=== PATIENT | female | born 1940 | race Caucasian/White ===

== ENCOUNTER 2019-07-30 18:31 | Inpatient (IN) | payer MEDICARE, MEDICAID, SELFPAY ==
[2019-07-30] VITALS (7 sets, daily range): BP systolic 82–102; BP diastolic 32–35; PULSE 35–55; RESP 14–21; TEMP 36.8; O2SAT 97–100
--- NOTE | 2019-07-30 18:30 | PC.NURSE ---
Direct admit from [facility] dori marroquin Talked to regarding pt's arrival and heart rate in 30s to 50s. Received orders for stat EKG, BMP, CBC and telemetry.
--- NOTE | 2019-07-30 18:38 | ECG_ITS ---
Measurements Intervals [place] Rate: 38 P: [place]: 0 QRS: 72 QRSD: 110 T: 57 QT: 453 QTc: 360 SUPRAVENTRICULAR BRADYCARDIA-possible extreme sinus bradycardia with junctional escape beats and supraventricular ectopics ABNORMAL RHYTHM ECG Compared to ECG 05/03/2019 07:20:30 Sinus rhythm no longer present Myocardial infarct finding no longer present Electronically Signed On 07-31-2019 21:58:18 AIX ADMINISTRATOR by Vanessa Gregorio M.D. [id number]
--- NOTE | 2019-07-30 19:00 | PC.NURSE ---
Report called to ICU-9 Received order for ICU-transfer. Called report to Joe.
[2019-07-30 19:28] LABS: Basophils % 0.2 %; Eosinophils % 0.4 %; Hematocrit 29.5 % (37.0-47.0); Lymphocytes # 1.4 10^3/uL (0.8-4.8); Lymphocytes % 12.3 %; Mean Corpuscular HGB Conc 30.5 g/dL (30.0-36.0); Mean Corpuscular Hemoglobin 31.5 pg (28.0-34.0); Mean Corpuscular Volume 103.1 fL (81-99); Mean Platelet Volume 11.6 fL (7.4-10.4); Monocytes # 1.2 10^3/uL (0.2-0.9); Monocytes % 10.9 %; Neutrophils # 8.4 10^3/uL (1.8-7.7); Neutrophils % 75.3 %; Nucleated Red Blood Cells % 0 %; Platelet Count 221 10^3/cmm (130-400); Red Blood Count 2.86 10^6/uL (4.1-5.3); Red Cell Distribution Width 13.6 % (12.1-15.1); White Blood Count 11.2 10^3/uL (4.0-10.0)
[2019-07-30 19:48] LABS: Anion Gap 16.7 (5-19); Calcium 9.7 mg/Dl (8.8-10.2); Carbon Dioxide 25 mmol/L (22-29); Chloride 92 mmol/L (98-107); Glucose 224 mg/dL (74-106); Potassium 5.7 mmol/L (3.5-5.1); Sodium 128 mmol/L (136-145)
[2019-07-30] MEDS: calcium gluconate 0.1 gm/mL 10% SDV 10mL 1 GM IVP (19:51)
--- NOTE | 2019-07-30 19:53 | PC.NURSE ---
Transferred patient to room ICU 9 via bed. Calcium Gluconate given as ordered over 10 minutes as ordered. Physician in room. Albuterol treatment given by RT as ordered. Patient lethargic;however, will awaken when spoken too. Family at bedside. Right IJ with triple lumen intact. Labs drawn from blue port without difficulty. Flushed after obtaining blood and giving Calcium Gluconate. Patient denies any pain at this time. Edema noted to BLE. Patient cold to touch. Lungs essentially CTAB upper lobes. Dimished bilateral lower lobes. Respirations even and unlabored with oxygen on at 3L/NC.
[2019-07-30 19:57] LABS: Blood Urea Nitrogen 107 mg/dL (8-23)
--- NOTE | 2019-07-30 20:00 | PM.CONSULT ---
Providers/Reason For Consult Consulting Physican/Specialty*: jong renee md telenephrology Reason for Consult*: kandy, hypserkalemia Requesting Physcian: DR. Caceres Attending Physician: Niko Caceres MD History of Present Illness History of Present Illness Vaibhav Ramsey is a 78 year old female parkinson's, GI issues, arthritis, PE- 5 years ago, IDDM for many years, CAD and CHF, insomnia/ psych disease, hypothyroidism, copd/ asthma, ming- home o2, htn, ex-tob. recently hospitalized in [place] 1 week ago. she was at PMD for routine visit and PMD called family to come to ER for hyperkalemia. Pt went to [facility] amd transferred to [facility] for junctional bradycardia- HR remains in 40's. she is lethargic and confused. symptoms have been worsening for last day. she has not been urinating much in last 24 hrs. she had normal renal fxn in Apr 2019. may 02, 2019- cr 0.9 may 03-cr 1.4 may 04, 2019- cr 2.2 currently cr is 5.1 home meds- carbidopa/levdopa pepcid oxycodone- percocet asa nsaid gel florastar eliquis 5 bid insulin lactulose prn kenalog magnesium hydroxide creams omega-3 fish oil senna vit b12 gabapentin nitro prn sl kdur bid bumex pravastatin xanaflex mirapex trazadone ditropan albuterol klonopin silvadene cream xyloprim allopurinol hydralazine metoprolol prilosec imdur levothyroxine magnesium zyrtec vit c lumigan solution losartan vit d Review of Systems Narrative: pt has become weaker over last week. chronically sob. she is confused and lethargic. no edema + ASHTON. no orthopnea Meds/Allergies Current Medications Current Medications Dextrose (D50w) 25 ml IVP ONCE PRN; Protocol PRN Reason: hypoglycemia protocol Dextrose (D50w) 50 ml IVP PRN PRN; Protocol PRN Reason: hypoglycemia protocol Glucagon (Glucagen) 1 mg IM ONCE PRN; Protocol PRN Reason: Adult Acute Hypoglycemia Prot. Dextrose (D5w) 500 mls @ 100 mls/hr IV ONCE PRN; Protocol PRN Reason: Adult Acute Hypoglycemia Prot Insulin Aspart (Novolog) 0 unit SUBCUT Q6H GONZALO; Protocol PFSH Acute PFSH: Statuses (acute, chronic, etc) shown below reflect problem list status as previously entered and may not be historically accurate Medical History (Updated 07/30/19 @ 20:11 by Niko Caceres MD) Chronic anticoagulation (Acute) Chronic back pain (Acute) Diastolic heart failure (Acute) Former smoker (Acute) Gout (Acute) History of pulmonary embolism (Acute) Hypertension (Acute) Hypothyroidism (Acute) Normal coronary angiogram (Acute) Cardiac angiogram done in September 2015 Paroxysmal A-fib (Acute) Type 2 diabetes mellitus (Acute) Surgical History (Updated 07/30/19 @ 20:09 by Niko Caceres MD) History of cholecystectomy (Acute) Tubal ligation status (Acute) Family History (Updated 07/30/19 @ 20:09 by Niko Caceres MD) Other Diabetes Social History Smoking and tobacco status: former smoker Alcohol intake: never Substance/Drug Use: never Household members: family Housing: House Vitals/I&O/Wt Last Vital Signs Pulse 47 L 07/30/19 19:41 Resp 14 07/30/19 19:41 Pulse Ox 100 07/30/19 19:41 Physical Exam Narrative: EXAM NARRATIVE: obese lady in bed bp stable, hr irreg- bradycardic rr 14 heent- nc/at, eomi, anicteric neck no jvp lung wheezes heart irreg, +KEATON abd soft, nt, nd ext min edema neuro- confused A&P Additional A&P Information 1. KANDY- likely from emds- bumex and arb. likely prerenal vs atn -check renal us check ua, urien lytes -monitor closely w/ ivf 2. confusion -hold meds -give ivf -check ammonia, abg, tsh 3. confusion and AMS- evaluate for infection- check ua check cxr 4. bradycardia- likely from cardiac disease and hyperkalemia- will rx hyperkalemia medically and monitor. if renal fxn does not improv soon, then may need dialysis -hold eliquis for now, as may need dialysis soon 5. hyperkalemia- rx medically and repeat labs in 2 hrs i discussed the case in detail w/ pts grandson who consents to dialysis if needed 6. dm care Consult Attestations Medical Necessity Statement: kandy, ams, hyperkalemia, AMS Time Spent in Patient Care: Greater than 35 minutes (>than 50% of time spent in counselling and/or direct pt care on unit). Critical Care Time: over 45 minutes of critical care- for kandy, AMS, irregular hr and bradycardia, with hyperkalemia Critical Care Time (min): 45 Coding Level of Care Code Acute Flight Engineer for Patrizia Corral
--- NOTE | 2019-07-30 20:01 | PM.HP ---
Providers/Chief Complaint Admitting Physician: Niko Caceres MD Chief Complaint: Bradycardia, hyperkalemia History of Present Illness Vaibhav Ramsey is a 78 year old female with past medical history of diastolic heart failure, CKD with baseline creatinine of 2-2.3, COPD on 3 L oxygen, paroxysmal A. fib, pulmonary embolism on chronic anticoagulation with Eliquis, type 2 diabetes mellitus, hypertension, hypothyroidism who was transferred to our hospital from [facility] where she had presented with complaint of being lethargic which has been progressively worsening for last 2 days. At the outside facility she was found to have a potassium of 6.4 with a heart rate of 35-42 and she was treated with cocktail of insulin 10 units with D50, albuterol nebulization, calcium gluconate on my request and her heart rate had improved to 70s. On arrival to [facility] her heart rate was again down and 35 to 44 bpm so was transferred to ICU. On evaluation family is bedside who states patient was recently discharged from [facility] in [place] on Tuesday where she was admitted for around a week for congestive heart failure and was been treated with IV diuresis. As per the family patient has been in 2 different hospitals over the last 14 to 20 days where she has been getting IV diuresis. At present patient complaint is lethargic complaining of mild dizziness but denies any nausea, vomiting, palpitations, headache, abdominal pain, dysuria, flulike symptoms, change in appetite, change in bowel movements, diarrhea. As per the family patient has been having decreased urine output than her usual for last 2 days. On reconciliation of medication patient is on Cozaar 100 mg, Bumex 1 mg twice daily, potassium supplementation 20 mg twice daily, metoprolol. Review of Systems Const: Reports: change in sleep pattern and daytime sleepiness; Denies: fever, chills, body aches, change in appetite, malaise, night sweats, diaphoresis or snoring Eyes: Denies: change in vision, blurry vision, photophobia, eye discomfort or eye discharge ENMT: Denies: throat pain, enlarged tonsils, hoarseness, mouth pain, oral sores/lesions, dry mouth, tinnitus, nasal congestion or post nasal drip Card: Reports: irregular heart rhythm, lightheadedness and pre-syncope; Denies: chest pain, palpitations, edema, swelling of feet/ankles, syncope, shortness of breath on exertion, shortness of breath when lying down, leg pain with exertion or bluish discoloration of hands/feet Resp: Denies: shortness of breath, productive cough, non-productive cough, wheezing, stridor, pain on inspiration, change in phlegm color, coughing up blood or chest congestion GI: Denies: abdominal pain, nausea, vomiting, vomiting blood, coffee grounds in vomit, difficulty swallowing, heartburn/indigestion, diarrhea, constipation, bloating, cramping, change in bowel habits, painful bowel movements, blood in stool or black tarry stool : Denies: flank pain, painful urination, urinary frequency, urinary urgency, urinary hesitancy, nighttime urination or blood in urine Musc: Denies: neck pain, back pain, extremity pain, joint pain, joint swelling, redness, joint stiffness or limited range of motion Neuro: Denies: headache, numbness in extremities, weakness in extremities, changes in sensation, lack of coordination, difficulty walking, frequent falls, dizziness, vertigo, confusion, slurred speech, difficulty communicating thoughts or seizure-like activity Psych: Denies: anxiety, depression, mood swings, panic attacks, hopelessness or irritability Endo: Denies: excessive urination, excessive thirst, tired all the time, cold intolerance, excessive sweating, flushing or heat intolerance Buzz/Lymph: Denies: easy bruising or easy bleeding All/Imm: Denies: tongue swelling, facial swelling or acute wheezing Medications/Allergies Home Medications Medication Instructions Recorded Confirmed Last Taken Type Calcium 500 + D 500 mg PO DAILY 07/31/19 07/31/19 Unknown History Proventil HFA 90 mcg INHALATION Q4H 07/31/19 07/31/19 Unknown History Saccharomyces boulardii [Florastor] 500 mg PO BID 07/31/19 07/31/19 Unknown History albuterol sulfate 2.5 mg CONTINUOUS NEBULIZATION Q4H 07/31/19 07/31/19 Unknown History PRN allopurinol 300 mg PO BID 07/31/19 07/31/19 Unknown History apixaban [Eliquis] 5 mg PO BID 07/31/19 07/31/19 Unknown History aspirin 81 mg PO DAILY 07/31/19 07/31/19 Unknown History bimatoprost [Lumigan] 1 drp OPHTHALMIC (EYE) BEDTIME 07/31/19 07/31/19 Unknown History bumetanide 1 mg PO BID 07/31/19 07/31/19 Unknown History carbidopa-levodopa 1 tab PO BID 07/31/19 07/31/19 Unknown History cetirizine [Zyrtec] 10 mg PO BEDTIME 07/31/19 07/31/19 Unknown History clonazepam 1 mg PO BEDTIME 07/31/19 07/31/19 Unknown History cyanocobalamin (vitamin B-12) 1,000 mcg IM DIRECTED 07/31/19 07/31/19 Unknown History famotidine 1 mg PO BID 07/31/19 07/31/19 Unknown History fluticasone propion-salmeterol 1 inh INHALATION BID 07/31/19 07/31/19 Unknown History [Advair Diskus] gabapentin 300 mg PO TID 07/31/19 07/31/19 Unknown History hydralazine 50 mg PO TID 07/31/19 07/31/19 Unknown History insulin aspart U-100 [Novolog See Rx Instructions .ROUTE .COMPLEX 07/31/19 07/31/19 Unknown History Flexpen U-100 Insulin] insulin glargine [Lantus Solostar 34 unit SUBCUT BEDTIME 07/31/19 07/31/19 Unknown History U-100 Insulin] isosorbide mononitrate 30 mg PO DAILY 07/31/19 07/31/19 Unknown History lactulose 15 ml PO BID PRN 07/31/19 07/31/19 Unknown History levothyroxine 100 mcg PO DAILY 07/31/19 07/31/19 Unknown History losartan 100 mg PO DAILY 07/31/19 07/31/19 Unknown History magnesium chloride [Mag 64] 64 mg PO DAILY 07/31/19 07/31/19 Unknown History magnesium hydroxide 0 ml PO DAILY PRN 07/31/19 07/31/19 Unknown History metoprolol tartrate 50 mg PRN 07/31/19 Unknown History nitroglycerin 0.4 mg SUBLINGUAL Q5MIN PRN 07/31/19 07/31/19 Unknown History omeprazole 40 mg PO DAILY 07/31/19 07/31/19 Unknown History oxybutynin chloride 5 mg PO TID 07/31/19 07/31/19 Unknown History oxycodone-acetaminophen 1 tab PO Q8H PRN 07/31/19 07/31/19 Unknown History potassium chloride 20 meq PO DAILY 07/31/19 07/31/19 Unknown History pramipexole 0.5 mg PO BID 07/31/19 07/31/19 Unknown History pravastatin 40 mg PO DAILY 07/31/19 07/31/19 Unknown History sennosides-docusate sodium 1 tab-cap PO BID 07/31/19 07/31/19 Unknown History silver sulfadiazine [SSD] 1 applic TOPICAL DAILY 07/31/19 07/31/19 Unknown History tizanidine 6 mg PO BEDTIME 07/31/19 07/31/19 Unknown History trazodone 100 mg PO DAILY 07/31/19 07/31/19 Unknown History Allergies Allergy/AdvReac Type Severity Reaction Status Date / Time codeine Allergy patient Verified 07/31/19 06:57 doesn't recall Iodinated Contrast Media Allergy renal Verified 07/31/19 06:57 disease naproxen Allergy renal Verified 07/31/19 06:57 disease Penicillins Allergy hives Verified 07/31/19 06:57 shellfish derived Allergy unknown Verified 07/31/19 06:57 Sulfa (Sulfonamide Allergy itching Verified 07/31/19 06:57 Antibiotics) tramadol Allergy makes me Verified 07/31/19 06:57 crazy garlic Allergy unknown Uncoded 07/31/19 06:57 PFSH Acute PFSH: Statuses (acute, chronic, etc) shown below reflect problem list status as previously entered and may not be historically accurate Medical History (Updated 07/31/19 @ 15:15 by Niko Caceres MD) Chronic anticoagulation (Acute) Chronic back pain (Acute) COPD (chronic obstructive pulmonary disease) (Acute) Diastolic heart failure (Acute) Former smoker (Acute) Gout (Acute) History of pulmonary embolism (Acute) Hypertension (Acute) Hypothyroidism (Acute) Normal coronary angiogram (Acute) Cardiac angiogram done in September 2015 Paroxysmal A-fib (Acute) Type 2 diabetes mellitus (Acute) Surgical History (Updated 07/31/19 @ 07:05 by Gucci Haddad MD) H/O left knee surgery (Acute) History of cholecystectomy (Acute) Tubal ligation status (Acute) Family History Other Diabetes Social History Smoking and tobacco status: former smoker Alcohol intake: never Substance/Drug Use: never Household members: family Housing: House Vitals/I&O/Wt Last Vital Signs Pulse 47 L 07/30/19 19:41 Resp 14 07/30/19 19:41 Pulse Ox 100 07/30/19 19:41 Physical Exam Narrative: EXAM NARRATIVE: General: No acute distress, lethargic, AO x3 HEENT: PERRLA, pupils bilaterally equal and reactive Chest: Normal vesicular breath sounds, no added sounds, equal good air entry bilaterally CVS: S1-S2 regular, bradycardia,, pansystolic murmur in mitral area 3/6, no gallops, no rubs Abdomen: Soft, nontender, no organomegaly, bowel sounds present Neuro: No focal deficits, no facial deformity, AO x3, power 3 /5 in all limbs Data : 07/31/19 03:56 07/31/19 12:40 A&P Assessment and plan (1) Hyperkalemia: Status: Acute Code(s): E87.5 - Hyperkalemia (2) Complete heart block: Status: Acute Code(s): I44.2 - Atrioventricular block, complete (3) Acute kidney injury superimposed on chronic kidney disease: Status: Acute Code(s): N17.9 - Acute kidney failure, unspecified; N18.9 - Chronic kidney disease, unspecified (4) Diastolic heart failure: Status: Acute Code(s): I50.30 - Unspecified diastolic (congestive) heart failure (5) Paroxysmal A-fib: Status: Acute Code(s): I48.0 - Paroxysmal atrial fibrillation (6) Chronic anticoagulation: Status: Acute Code(s): Z79.01 - [facility] (current) use of anticoagulants (7) Hypertension: Status: Acute Code(s): I10 - Essential (primary) hypertension (8) Type 2 diabetes mellitus: Status: Acute Code(s): E11.9 - Type 2 diabetes mellitus without complications Additional A&P Information Complete heart block: Secondary to hyperkalemia: Most likely due to acute on chronic kidney disease, home dose of Cozaar, Bumex, potassium supplementation. We will hold off on Cozaar, Bumex, potassium supplementation. Hold off on home dose of metoprolol. Calcium gluconate 1 g over 10 minutes, albuterol every 4 hourly as needed, D50 with 10 units insulin stat. Kexlate as per nephrology. Nephrology consultation for possible dialysis. Pacer pads connected to the patient. Check potassium every 6 hourly. N.p.o. Fall precautions Aspiration precautions Neurochecks every 1 hours for now. CHB most likely from hyperkalemia but will need to r/o ACS-- Check 5th Gen trop trends. Acute on chronic kidney disease.: Baseline creatinine of around 2.0-2.2. We will hold off nephrotoxic drugs. Medical reconciliation done. Continue to monitor BMP Q6h for now. Will catheterize patient to monitor for urine output. Hypertension: Blood pressure to be monitored for now. We will hold off on home dose of Cozaar and Lopressor given hyperkalemia and bradycardia. Given bradycardia patient would most likely need blood pressures over 150 systolic for proper cardiac output. Later if needed can add patient amlodipine but will hold off for now. Type 2 diabetes mellitus: We will check HbA1c tomorrow morning. Moderate insulin sliding scale every 6 hourly as patient is n.p.o. for now. History of paroxysmal A. fib/history of pulmonary embolism: For now patient is bradycardic and complete heart block. Will hold off on Lopressor as stated above. We will continue on Eliquis 2.5 mg twice daily at renal dose given renal dysfunction at right now. We will start after possible Shiley placement. H/o Diastolic HF: Last ECHO shows Diastolic HF. Will check repeat ECHO. Check ProBNP Pt euvoluemic at present. Depression: Lethargic right now. Will hold off on anti psych meds for now as CrCl worse right now and can accentuate the effect. Will plan to start once mentation improves. Get docs from OSH regarding result admission. Check lipid panel, TSH Eliquis for DVT ppx once confirm no dialysis overnight. FC as per roxy who is bedside. NPO for now. Attestations Medical Necessity Statement*: ICU admission for more than 2 MN for Hyperkalemia, Acute on CKD and CHB Critical Care Time: CHB, hyperkalemia, CKD Critical Care Time (min): 80 Coding Level of Care Code Acute Anesthesia Tech for Chg Fwd Diagnoses Hyperkalemia E87.5 Complete heart block I44.2 Acute kidney injury superimposed on chronic kidney disease N17.9; N18.9 Diastolic heart failure I50.30 Paroxysmal A-fib I48.0 Chronic anticoagulation Z79.01 Hypertension I10 Type 2 diabetes mellitus E11.9
--- NOTE | 2019-07-30 20:28 | XR_ITS ---
WS: [id number] CHEST XRAY TECHNIQUE: Portable chest. CLINICAL INFORMATION: chf COMPARISON: May 03, 2019 FINDINGS: Right IJ catheter with tip in the right atrium. Heart: Sternotomy. Aortic calcification. Lungs: Chronic emphysematous changes. No acute pulmonary infiltrates. Mild pulmonary vascular congest ion. Bones: Normal visualized bony structures. XR/XR chest 1V portable [id number] IMPRESSION: Cardiomegaly with mild pulmonary vascular congestion. No pleural fluid.
[2019-07-30] MEDS: insulin regular-human 10 UNIT in SYRINGE 1 EACH IVP (20:41)
[2019-07-30] MEDS: dextrose 50% syringe 50 mL IVP (20:43)
[2019-07-30] MEDS: sodium chloride 0.9% 1,000 ML 125 ML IV (20:51)
[2019-07-30] MEDS: sodium polystyrene sulfonate 15 gm/60 mL Btl 30 GM PO (20:51)
[2019-07-30 21:05] LABS: D Dimer 1.24 ug/mIFEU (0-0.59)
[2019-07-30] MEDS: sodium chloride 0.9% 500 ML IV (21:12)
[2019-07-30 21:18] LABS: Alanine Aminotransferase < 5 U/L (0-33); Alkaline Phosphatase 162 IU/L (35-105); Anion Gap 18.8 (5-19); Aspartate Amino Transferase 31 U/L (0-32); Calcium 10.3 mg/Dl (8.8-10.2); Carbon Dioxide 24 mmol/L (22-29); Chloride 93 mmol/L (98-107); Globulin 3.2 g/dL (1.3-4.6); Glucose 201 mg/dL (74-106); NT Pro B Type Natriuretic Pept 6163 pg/mL (0-450); Potassium 5.8 mmol/L (3.5-5.1); Sodium 130 mmol/L (136-145); Thyroid Stimulating Hormone 9.14 uIU/mL (0.27-4.20); Total Bilirubin 0.2 mg/dL (0.15-1.2); Total Protein 6.2 g/dL (6.6-8.7)
[2019-07-30 21:24] LABS: Blood Urea Nitrogen 96 mg/dL (8-23); Creatine Phosphokinase 900 U/L (26-192)
[2019-07-30 21:32] LABS: Ammonia 26 umol/L (11-51)
[2019-07-30 21:42] LABS: Potassium, Radom Urine 67 mmol/L; Urine Creatinine 150 mg/dL (28-217); Urine Random Chloride 23 mmol/L; Urine Random Sodium 22 mmol/L
[2019-07-30 21:48] LABS: Creatinine Urine, Random 146 mg/dL (28-217)
[2019-07-30] MEDS: ipratropium-albuterol 3 mL Neb INHALATION (21:48)
--- NOTE | 2019-07-30 21:59 | ECG_ITS ---
Measurements Intervals [place] Rate: 45 P: [place]: 0 QRS: 69 QRSD: 100 T: 36 QT: 448 QTc: 388 Junctional rhythm with a frequent prematures supraventricular ectopics ABNORMAL RHYTHM ECG Compared to ECG 05/03/2019 07:20:30 Sinus rhythm no longer present Myocardial infarct finding no longer present Electronically Signed On 07-31-2019 21:59:39 MORTAR MAN by Vanessa Gregorio M.D. [email or web address]
[2019-07-30 22:09] LABS: Microalbum Creatinine Ratio Ur 986 mg/dL (0-20); Microalbumin Random Urine 144 ug/dL (0-20)
[2019-07-30 22:32] LABS: Bilirubin Urine 1+ (NEGATIVE); Blood Urine Neg (Negative); Glucose Urine UA Norm (Normal); Ketones Urine Negative (Negative); Leukocyte Esterase Urine Negative (Negative); Nitrate Urine Negative (Negative); Protein Urine 3+ (Negative); Specific Gravity, Urine 1.015 (1.005-1.030); Urine Appearance SL Hazy (CLEAR); Urine Color Yellow (Yellow); Urobilinogen Urine Norm (Negative); pH Urine 5 (5-7)
[2019-07-30 22:33] LABS: Add Urine Culture? No; Amorphous Sediment Urine 2+; Bacteria Urine TRACE; Hyaline Casts Urine 0-4; Mucus Urine 1+
[2019-07-30 22:36] LABS: Basophils % 0.2 %; Eosinophils % 0.4 %; Hematocrit 27.4 % (37.0-47.0); Hemoglobin 8.2 g/dL (11.5-15.3); Lymphocytes # 1.9 10^3/uL (0.8-4.8); Lymphocytes % 19.9 %; Mean Corpuscular HGB Conc 29.9 g/dL (30.0-36.0); Mean Corpuscular Hemoglobin 30.3 pg (28.0-34.0); Mean Corpuscular Volume 101.1 fL (81-99); Mean Platelet Volume 11.5 fL (7.4-10.4); Monocytes % 10.3 %; Neutrophils # 6.7 10^3/uL (1.8-7.7); Neutrophils % 68.5 %; Nucleated Red Blood Cells % 0 %; Platelet Count 212 10^3/cmm (130-400); Red Blood Count 2.71 10^6/uL (4.1-5.3); Red Cell Distribution Width 13.6 % (12.1-15.1); White Blood Count 9.8 10^3/uL (4.0-10.0)
[2019-07-30 22:58] LABS: Anion Gap 18.5 (5-19); Carbon Dioxide 23 mmol/L (22-29); Chloride 95 mmol/L (98-107); Glucose 232 mg/dL (74-106); Potassium 5.5 mmol/L (3.5-5.1); Sodium 131 mmol/L (136-145)
[2019-07-30 22:59] LABS: Troponin(5th) Baseline 52 ng/mL (0-10)
[2019-07-30 23:09] LABS: Blood Urea Nitrogen 97 mg/dL (8-23)
--- NOTE | 2019-07-30 23:30 | PM.MISC ---
Miscellaneous Note Purpose of Documentation: renal follow up Note: pts potassium is 5.5. cr is stable, uop 100 ml. co2 of 23- pt remians bradycardic- i discussed w/ Dr. Gregorio of cardiology. he will consider Temporary pacemaker. if cardiology does not feel that will help, then can consider dialysis.
--- NOTE | 2019-07-30 23:47 | P.EN_ITS ---
Event Note Event Note: Patient was confused and lethargic, systolic blood pressure was in 80s and heart rate was fluctuating between 35-42 on telemetry it looked junctional rhythm as per my assessment After getting update from sales and service consultant I contacted Dr. Gregorio to convey my concerns, Dr. Gregorio agreed and decided to go ahead with pacemaker placement Telemetry sales and service consultant Dr. Cavazos has been updated (no acute indications for hemodialysis but if she remains anuric with persistent hyperkalemia after pacemaker placement he will be happy to assist in hemodialysis) Meanwhile I will start patient on dopamine drip at 10 mcg per KG per minute
--- NOTE | 2019-07-30 23:53 | PC.NURSE ---
patient heart rate remains in the low 40's to upper 30's. appears to be junctional rhythm. patients blood pressure started trending down and patient became more lethargic and hard to arise called hospitalist Dr. Matthew and he contacted Dr. Gregorio for cardiology as a consult. Dr. Gregorio requested we call in distillery laborer team and he is going to come and place a temporary pacemaker.
[2019-07-31] VITALS (33 sets, daily range): BP systolic 81–168; BP diastolic 27–70; PULSE 46–86; RESP 10–29; TEMP 36.6–37; O2SAT 88–100; BMI 36.3
[2019-07-31] MEDS: DOPamine drip 400 MG/250 ML PREMIX 19.2 MG IV (00:14)
[2019-07-31 00:33] LABS: Free T4 Free Thyroxine 1.34 ng/dL (0.82-1.77); T3 Free 2.1 PG/ML (2.0-4.4)
--- NOTE | 2019-07-31 01:15 | PM.CONSULT ---
Providers/Reason For Consult Consulting Physican/Specialty*: Dago Gregorio MD/cardiology Reason for Consult*: Patient with bradycardia/hypotension Attending Physician: Niko Caceres MD History of Present Illness History of Present Illness Vaibhav Ramsey is a 78 year old female with a history of chronic intermittent atrial fibrillation, on long-term oral anticoagulation, recurrent episodes of diastolic heart failure, mitral valve regurgitation, essential benign hypertension, dyslipidemia, acute on chronic kidney disease, COPD and multiple other medical problems, was initially seen at the emergency room of the [facility] in [facility]. She has mainly complaining of lethargy/sleepiness/weakness. She was found to be hyperkalemic and bradycardic. She is transferred to [facility] for further evaluation management. Patient apparently was discharged from the [facility] recently where she was admitted with? Progressive shortness of breath. Details of that hospital admission is not known. In June of last year, she was admitted to this hospital with atypical chest pain and shortness of breath. She had a features of acute diastolic heart failure and acute on chronic kidney disease. She had a myocardial perfusion imaging at that time which revealed no evidence of ischemia. She had a cardiac authorization 2016 which also did not reveal any significant obstructive coronary artery disease. She is known to have moderately severe mitral regurgitation. She is on long-term oral anticoagulation for chronic intermittent atrial fibrillation. Patient extremely poor historian. Review of Systems Const: Reports: other (Anorexia. She was found to be increasingly lethargic and fatigued by the family members, since the hospital discharge from [facility] Denies: fever, chills, change in appetite, fatigue or night sweats Eyes: Denies: change in vision, blurry vision or eye discomfort ENMT: Denies: bleeding gums, nose bleeds or other (Spinning Sensation, Trouble Swallowing) Card: Denies: syncope, pre-syncope, shortness of breath when lying down or leg pain with exertion Resp: Reports: shortness of breath; Denies: productive cough, change in phlegm color or coughing up blood GI: Denies: vomiting, vomiting blood, bloating, blood in stool or black tarry stool : Denies: blood in urine or vaginal bleeding Musc: Denies: neck pain, extremity pain, extremity swelling, redness, muscle cramps, muscle weakness or other (Neck Pain or Swollen Glands) Skin/Breast: Denies: rash, itching, redness, new lesion, changes in skin color or breast mass/lump Neuro: Denies: headache, changes in sensation, lack of coordination, frequent falls, dizziness, vertigo, seizure-like activity or other (TIA, Numbness) Psych: Reports: sleeping more and loss of interest Endo: Denies: excessive urination, excessive thirst or other (Abnormal Hair Loss) Buzz/Lymph: Denies: easy bruising All/Imm: Denies: hives Meds/Allergies Current Medications Current Medications Generic Name Dose Route Start Last Admin Trade Name Freq PRN Reason Stop Dose Admin Albuterol/Ipratropium 3 ml 07/30/19 21:00 07/30/19 21:48 Duoneb INHALATION 3 ml Q6H.RESPIRATORY GONZALO Administration Sodium Chloride 1,000 mls @ 125 mls/hr 07/30/19 20:30 07/30/19 20:51 Sodium Chloride 0.9% IV 125 mls/hr .Q8H GONZALO Administration Dopamine HCl/Dextrose 400 mg in 250 mls @ 19.163 mls/hr 07/30/19 23:45 07/31/19 00:14 Intropin Drip IV 5 mcg/kg/min CONT GONZALO 19.2 mls/hr Administration Protocol 5 MCG/KG/MIN Insulin Aspart 0 unit 07/30/19 20:00 07/30/19 21:14 Novolog SUBCUT Not Given Q6H GONZALO Protocol PFSH Acute PFSH: Statuses (acute, chronic, etc) shown below reflect problem list status as previously entered and may not be historically accurate Medical History Chronic anticoagulation (Acute) Chronic back pain (Acute) Diastolic heart failure (Acute) Former smoker (Acute) Gout (Acute) History of pulmonary embolism (Acute) Hypertension (Acute) Hypothyroidism (Acute) Normal coronary angiogram (Acute) Cardiac angiogram done in September 2015 Paroxysmal A-fib (Acute) Type 2 diabetes mellitus (Acute) Surgical History History of cholecystectomy (Acute) Tubal ligation status (Acute) Family History Other Diabetes Social History Smoking and tobacco status: former smoker Alcohol intake: never Substance/Drug Use: never Household members: family Housing: House Vitals/I&O/Wt Last Vital Signs Temp 98.2 F 07/30/19 20:28 Pulse 47 L 07/31/19 00:00 Resp 12 07/31/19 00:00 BP 93/43 07/31/19 00:00 Pulse Ox 98 07/31/19 00:00 07/30/19 07/30/19 07/31/19 14:59 22:59 06:59 Intake Total 120 / 120 Balance 120 / 120 Weight last 48 hrs Weight 225 lb 5 oz Physical Exam Narrative: EXAM NARRATIVE: GENERAL: The patient is drowsy and sleepy. Not in any acute distress. HEENT: Heart rate pallor, no icterus or lymphadenopathy. The pupils are reactant to light. Oral cavity: There are no mucous membrane lesions. Funduscopic fundus is not visualized NECK: Trachea appears to be central. No masses noted. No JVD or thyromegaly appreciated. No carotid bruit. RESPIRATORY: Chest is symmetrical. No intercostals muscle retraction or any accessory muscle activation. There is no chest wall tenderness. Breath sounds are heard bilaterally. No rales or rhonchi heard. No evidence of any consolidation. BREASTS: Deferred. HEART: The PMI could not be palpated no palpable precordial events. S1 and S2 are normal. No S3 or S4 heard. No pericardial rub or any click heard. ABDOMEN: No vessel pulsations or distention. No tenderness. No organomegaly appreciated. No abdominal bruit. Bowel sounds are normally heard. : Deferred. RECTAL: Deferred. LYMPHATIC: No lymphadenopathy noted in the neck or groin. EXTREMITIES: No edema or cyanosis. No clubbing. The pulses are symmetrical bilaterally. The radial, femoral, dorsalis pedis and the posterior tibial pulses are palpated and found to be in good volume and amplitude. MUSCULOSKELETAL: Gait is normal. There is no joint deformity or swelling noted. No joint tenderness or any effusion. The shoulder and hip joints appear to have normal range of motion. SKIN: There are no significant scars or skin rash noted. NEUROPSYCHIATRIC: Drowsy and sleepy. Moves all the extremities. No tremors or rigidity noted. Urinary Catheter Management^: Ferrari: Cath Placed During This Visit: no Data Imaging^: CXR: My impression: Chest x-ray shows cardiomegaly with increased pulmonary venous markings. A&P Assessment and plan (1) Paroxysmal A-fib: Patient has intermittent chronic atrial fibrillation. Currently she seems to be in a junctional rhythm. She has been on a low-dose of Eliquis because of the kidney injury. Status: Acute Code(s): I48.0 - Paroxysmal atrial fibrillation (2) Chronic anticoagulation: Because acute on chronic kidney injury and the anemia, the oral anticoagulation is on hold at this time. Status: Acute Code(s): Z79.01 - [facility] (current) use of anticoagulants (3) Diastolic heart failure: Acute on chronic renal failure, could be the etiology for the heart failure. Appreciate the nephrology consult Status: Acute Qualifiers: Heart failure chronicity: chronic Qualified Code(s): I50.32 - Chronic diastolic (congestive) heart failure Code(s): I50.30 - Unspecified diastolic (congestive) heart failure (4) Hyperkalemia: Potassium level is coming down. Dialysis is on hold at this time. Further recommendations as per the nephrology Status: Acute Code(s): E87.5 - Hyperkalemia (5) Symptomatic bradycardia: Agree with a transvenous temporary pacemaker insertion. Based on the clinical progress, the need for a permanent pacemaker will be reassessed. Status: Acute Code(s): R00.1 - Bradycardia, unspecified (6) Acute kidney injury superimposed on chronic kidney disease: Management as per the nephrology Status: Acute Code(s): N17.9 - Acute kidney failure, unspecified; N18.9 - Chronic kidney disease, unspecified Coding Level of Care Code Acute [facility]al Operator for [facility] Diagnoses Paroxysmal A-fib I48.0 Chronic anticoagulation Z79.01 Diastolic heart failure I50.32 Heart failure chronicity: chronic Hyperkalemia E87.5 Symptomatic bradycardia R00.1 Acute kidney injury superimposed on chronic kidney disease N17.9; N18.9
--- NOTE | 2019-07-31 01:17 | PM.MISC ---
Miscellaneous Note Purpose of Documentation: Temporary pacemaker insertion report PROCEDURE: Transvenous temporary pacemaker insertion LOCATION: Cardiac catheterization lab PRE-OP DIAGNOSIS: Symptomatic bradycardia POSTOPERATIVE DIAGNOSES: Same. COMPLICATIONS: None. ESTIMATED BLOOD LOSS: None BRIEF HISTORY: 78 year old female is admitted to the hospital with features of acute renal failure and bradycardia with a heart rate in the 30s and low 40s. She was found to be hypotensive. Initially she was hyperkalemic with a potassium around 6.4. The repeat potassium level is 5.5. Patient continued to be bradycardic with a heart rate in the 30s and 40s. For this reason, a transvenous temporary pacemaker insertion was requested by the nephrology and the primary attending. The procedure was discussed with the patient's family and the possible complications including hematoma, vascular injury, infection, myocardial perforation and other concomitant complications. This was understood well by the family who consented to proceed. PROCEDURE DESCRIPTION: Patient was brought to the [facility] [employer] [facility]. The right and the left side of the groin were prepped and draped in a sterile fashion. 1% Xylocaine was used as a local anesthetic agent. The right femoral venous access was obtained using a micropuncture needle system. A 6-Cypriot venous sheath was introduced into the femoral vein over a guidewire. A 5-Cypriot temporary balloon-tipped pacing wire over a sleeve was advanced through the venous sheath, under fluoroscopic guidance. The temporary pacing wire was placed near to the right ventricular apex. Good pacing threshold was obtained. The venous sheath was secured in place by suturing to the skin with 0 Surgilon. The pacemaker wire also was secured to the skin by suturing with 0 Surgilon, over the sleeve. A sterile dressing was applied at the access site. Patient tolerated the procedure very well and there were no complications. The pacing threshold was found to be less than 0.2 V PACEMAKER SETTINGS: The pacemaker was set for a backup rate of 50/ min with an output of 2 Amp and on a demand mode. DISPOSITION: Patient was transferred to the Intensive Care Unit in stable condition.
[2019-07-31 01:33] LABS: Basophils % 0.3 %; Eosinophils # 0.1 10^3/uL (0.0-0.8); Eosinophils % 0.9 %; Hematocrit 30.8 % (37.0-47.0); Hemoglobin 9.5 g/dL (11.5-15.3); Lymphocytes # 2.1 10^3/uL (0.8-4.8); Lymphocytes % 17.5 %; Mean Corpuscular HGB Conc 30.8 g/dL (30.0-36.0); Mean Corpuscular Hemoglobin 30.5 pg (28.0-34.0); Mean Platelet Volume 11.3 fL (7.4-10.4); Monocytes # 1.4 10^3/uL (0.2-0.9); Monocytes % 11.7 %; Neutrophils % 68.5 %; Nucleated Red Blood Cells % 0 %; Platelet Count 278 10^3/cmm (130-400); Red Blood Count 3.11 10^6/uL (4.1-5.3); Red Cell Distribution Width 13.6 % (12.1-15.1); White Blood Count 11.8 10^3/uL (4.0-10.0)
[2019-07-31 01:44] LABS: Alanine Aminotransferase < 5 U/L (0-33); Albumin Level 3.4 g/dL (3.5-5.2); Alkaline Phosphatase 170 IU/L (35-105); Anion Gap 17.3 (5-19); Aspartate Amino Transferase 29 U/L (0-32); Calcium 10.2 mg/Dl (8.8-10.2); Carbon Dioxide 25 mmol/L (22-29); Chloride 92 mmol/L (98-107); Globulin 3.1 g/dL (1.3-4.6); Glucose 172 mg/dL (74-106); Potassium 5.3 mmol/L (3.5-5.1); Sodium 129 mmol/L (136-145); Total Bilirubin 0.2 mg/dL (0.15-1.2); Total Protein 6.5 g/dL (6.6-8.7)
[2019-07-31 01:45] LABS: Blood Urea Nitrogen 104 mg/dL (8-23); Creatine Phosphokinase 846 U/L (26-192)
[2019-07-31 01:46] LABS: Troponin 5 2HR 66.46 ng/mL (0-10)
[2019-07-31 01:55] LABS: Alveolar-Arterial Oxygen Gradi 16.1 mmHg (5-10); Carboxyhemoglobin 0.6 %THgb (0.4-20.1); HGB O2 Sat 93.3 % (95-100); Ionized Calcium Level - ABG 1.3 mmol/L (1.1-1.4); Methemoglobin 0.5 % (0.4-1.5)
[2019-07-31 01:59] LABS: ABG PCO2 50.8 mmHg (35-45); ABG PH Result 7.31 (7.35-7.45); Base Excess ABG -1.2 mmol/L (-2.0-2.0); HCO3 ABG 25.5 mmol/L (22-26); Oxygen Saturation ABG 94.4; PO2 ABG 73.8 mmHg (80.0-100.0)
[2019-07-31 02:00] LABS: Blood Gas Allen Test pos; Oxygen Device nc; Potassium Level - ABG 5.2 mmol/L (3.5-5.0)
[2019-07-31 02:01] LABS: Arterial Blood Gas Hematocrit 30.6 % (37-47)
[2019-07-31] MEDS: ipratropium-albuterol 3 mL Neb INHALATION ×4 (02:38→21:33)
[2019-07-31 02:42] LABS: Glucose Point of Care 177 mg/dL (70-110)
[2019-07-31] MEDS: sodium chloride 0.9% 1,000 ML 125 ML IV ×2 (02:42→11:32)
[2019-07-31] MEDS: enoxaparin 40 mg/0.4 mL Syringe SUBCUT (02:43)
[2019-07-31 04:25] LABS: Basophils % 0.2 %; Eosinophils # 0.1 10^3/uL (0.0-0.8); Eosinophils % 0.4 %; Hematocrit 31.5 % (37.0-47.0); Hemoglobin 9.6 g/dL (11.5-15.3); Lymphocytes # 1.8 10^3/uL (0.8-4.8); Lymphocytes % 11.2 %; Mean Corpuscular HGB Conc 30.5 g/dL (30.0-36.0); Mean Corpuscular Hemoglobin 30.6 pg (28.0-34.0); Mean Corpuscular Volume 100.3 fL (81-99); Mean Platelet Volume 11.8 fL (7.4-10.4); Monocytes # 1.5 10^3/uL (0.2-0.9); Monocytes % 9.2 %; Neutrophils # 12.6 10^3/uL (1.8-7.7); Neutrophils % 78.1 %; Nucleated Red Blood Cells % 0 %; Platelet Count 305 10^3/cmm (130-400); Red Blood Count 3.14 10^6/uL (4.1-5.3); Red Cell Distribution Width 13.6 % (12.1-15.1); White Blood Count 16.1 10^3/uL (4.0-10.0)
[2019-07-31 04:39] LABS: ABG PCO2 50.9 mmHg (35-45); ABG PH Result 7.27 (7.35-7.45); Alveolar-Arterial Oxygen Gradi 1.9 mmHg (5-10); Arterial Blood Gas Hematocrit 31.9 % (37-47); Base Excess ABG -3.5 mmol/L (-2.0-2.0); Blood Gas Sample Site Brachial, left; Blood Gas Sample Type Arterial; Carboxyhemoglobin 0.6 %THgb (0.4-20.1); HCO3 ABG 23.6 mmol/L (22-26); HGB O2 Sat 94.7 % (95-100); Ionized Calcium Level - ABG 1.3 mmol/L (1.1-1.4); Methemoglobin 1.1 % (0.4-1.5); Oxygen Device NC; Oxygen Saturation ABG 96.4; PO2 ABG 88.2 mmHg (80.0-100.0); Potassium Level - ABG 5.5 mmol/L (3.5-5.0); Total Hemoglobin 10.4 g/dL (12-16)
[2019-07-31 04:47] LABS: Alanine Aminotransferase < 5 U/L (0-33); Albumin Level 3.4 g/dL (3.5-5.2); Alkaline Phosphatase 172 IU/L (35-105); Anion Gap 22.7 (5-19); Aspartate Amino Transferase 30 U/L (0-32); Calcium 10.2 mg/Dl (8.8-10.2); Carbon Dioxide 22 mmol/L (22-29); Chloride 93 mmol/L (98-107); Chol HDL Ratio 3.21 mg/dL (0.0-4.40); Cholesterol 125 mg/dL (0-200); Estmated Average Glucose 180; Globulin 2.8 g/dL (1.3-4.6); Glucose 237 mg/dL (74-106); HDL Cholesterol 39 mg/dL (60-100); Hemoglobin A1C 7.9 % (4.0-6.0); LDL Cholesterol Calculated 55 mg/dL (50-129); Magnesium 3.1 mg/dL (1.7-2.3); Phosphorus 5.9 mg/dL (2.5-4.5); Potassium 5.7 mmol/L (3.5-5.1); Sodium 132 mmol/L (136-145); Total Bilirubin 0.2 mg/dL (0.15-1.2); Total Protein 6.2 g/dL (6.6-8.7); Triglycerides 153 mg/dL (0-150); VLDL Cholestrol Calculation 31 mg/dL (0-30)
[2019-07-31 04:48] LABS: Troponin 5 6HR 59.12 ng/L (0-10); Troponin 5 6HR Delta 7.12 ng/L (0-12)
[2019-07-31 05:00] LABS: Blood Urea Nitrogen 92 mg/dL (8-23)
--- NOTE | 2019-07-31 05:23 | P.PN_ITS ---
Subjective Subjective: Interval history: overnight events noted. she is sleepy not sob. no weakness. Medications: Reviewed: Yes Medication Review Details: Current Medications Albuterol Sulfate (Albuterol) 2.5 mg INHALATION Q4H.RESPIRATORY PRN PRN Reason: shortness Albuterol/Ipratropium (Duoneb) 3 ml INHALATION Q6H.RESPIRATORY GONZALO Last Admin: 07/31/19 02:38 Dose: 3 ml Documented by: Dextrose (D50w) 25 ml IVP ONCE PRN; Protocol PRN Reason: hypoglycemia protocol Dextrose (D50w) 50 ml IVP PRN PRN; Protocol PRN Reason: hypoglycemia protocol Enoxaparin Sodium (Lovenox) 40 mg SUBCUT Q24H GONZALO Last Admin: 07/31/19 02:43 Dose: 40 mg Documented by: Glucagon (Glucagen) 1 mg IM ONCE PRN; Protocol PRN Reason: Adult Acute Hypoglycemia Prot. Dextrose (D5w) 500 mls @ 100 mls/hr IV ONCE PRN; Protocol PRN Reason: Adult Acute Hypoglycemia Prot Sodium Chloride (Sodium Chloride 0.9%) 1,000 mls @ 125 mls/hr IV .Q8H GONZALO Last Admin: 07/31/19 02:42 Dose: 125 mls/hr Documented by: Dopamine HCl/Dextrose (Intropin Drip) 400 mg in 250 mls @ 19.163 mls/hr IV CONT GONZALO; Protocol Last Titration: 07/31/19 02:43 Dose: 10 mcg/kg/min, 38.3 mls/hr Documented by: Insulin Aspart (Novolog) 0 unit SUBCUT Q6H GONZALO; Protocol Last Admin: 07/31/19 02:43 Dose: 4 unit Documented by: Ondansetron HCl (Zofran) 4 mg IVP Q8H PRN PRN Reason: vomiting, or N/V if npo Vitals/I&O/Wt Last Vital Signs Temp 97.9 F 07/31/19 04:00 Pulse 54 L 07/31/19 04:00 Resp 14 07/31/19 04:00 BP 109/40 07/31/19 04:00 Pulse Ox 95 07/31/19 04:00 07/30/19 07/30/19 07/31/19 14:59 22:59 06:59 Intake Total 120 / 120 1047.68 / 1167.68 Balance 120 / 120 1047.68 / 1167.68 Weight last 48 hrs Weight 102.2 kg Physical Exam Narrative: EXAM NARRATIVE: obese lady in bed bp stable, hr trisha in 50's using 3l nco2 heent- nc/at, eomi, anicteric neck no jvp lung basal crackles heart -bradycardic, +KEATON abd soft, nt, nd ext 1+ edema neuro- a,a, o x 2, more awake and appropriate Urinary Catheter Management^: Ferrari: Cath Placed During This Visit: no Data : 07/31/19 03:56 07/31/19 03:56 Other Labs: All Labs last 24 hrs except CBC/BMP 07/30/19 07/30/19 07/30/19 01:25 01:54 19:07 RBC 2.86 L MCV 103.1 H MCH 31.5 MCHC 30.5 RDW 13.6 MPV 11.6 H Neut % (Auto) 75.3 Lymph % (Auto) 12.3 [place] % (Auto) 10.9 Eos % (Auto) 0.4 Baso % (Auto) 0.2 Neut # (Auto) 8.4 H Lymph # (Auto) 1.4 [place] # (Auto) 1.2 H Eos # (Auto) 0.0 Baso # (Auto) 0.0 Nucleated RBC % (auto) 0 Nucleated RBCs # 0.0 D-Dimer Specimen Type arterial Sample Site left,radial ABG pH 7.31 L ABG pCO2 50.8 H ABG pO2 73.8 L ABG HCO3 25.5 ABG O2 Saturation 94.4 ABG Base Excess -1.2 Wil Test pos A-a O2 Gradient Hematocrit 30.6 L Hgb O2 Saturation Carboxyhemoglobin Methemoglobin Total Hemoglobin 10.0 L Sodium 131.0 Potassium 5.2 H Glucose 170.0 H Ionized Calcium O2 Delivery Device nc O2 Liters/Min 3.0 Specimen Drawn By rizwana Behavioral Sciences Instructor ID POC Glucose Estimat Average Glucose Hemoglobin A1c Calcium Phosphorus Magnesium Total Bilirubin AST ALT Alkaline Phosphatase Ammonia Creatine Kinase Troponin I 6 Hour Troponin I Hi Sens Del Troponin T Baseline Troponin T 120 Minute 66.46 H NT-Pro-B Natriuret Pep Total Protein Albumin Globulin Triglycerides Cholesterol LDL Cholesterol, Calc Total VLDL Cholesterol HDL Cholesterol Cholesterol/HDL Ratio TSH Free T4 Free T3 Urine Color Urine Appearance Urine pH Ur Specific Cory Urine Protein Urine Glucose (UA) Urine Ketones Urine Occult Blood Urine Nitrate Urine Bilirubin Urine Urobilinogen Ur Leukocyte Esterase Urine RBC Urine WBC Ur Squamous Epith Cells Amorphous Sediment Urine Bacteria Hyaline Casts Urine Mucus Ur Random Microalbumin Ur Random Sodium Ur Random Potassium Ur Random Chloride Urine Creatinine Microalb/Creat Ratio 07/30/19 07/30/19 07/30/19 19:07 20:10 20:10 RBC MCV MCH MCHC RDW MPV Neut % (Auto) Lymph % (Auto) [place] % (Auto) Eos % (Auto) Baso % (Auto) Neut # (Auto) Lymph # (Auto) [place] # (Auto) Eos # (Auto) Baso # (Auto) Nucleated RBC % (auto) Nucleated RBCs # D-Dimer Specimen Type Sample Site ABG pH ABG pCO2 ABG pO2 ABG HCO3 ABG O2 Saturation ABG Base Excess Wil Test A-a O2 Gradient Hematocrit Hgb O2 Saturation Carboxyhemoglobin Methemoglobin Total Hemoglobin Sodium Potassium Glucose Ionized Calcium O2 Delivery Device O2 Liters/Min Specimen Drawn By Behavioral Sciences Instructor ID POC Glucose Estimat Average Glucose Hemoglobin A1c Calcium 9.7 Phosphorus Magnesium Total Bilirubin AST ALT Alkaline Phosphatase Ammonia Creatine Kinase Troponin I 6 Hour Troponin I Hi Sens Del Troponin T Baseline Troponin T 120 Minute NT-Pro-B Natriuret Pep Total Protein Albumin Globulin Triglycerides Cholesterol LDL Cholesterol, Calc Total VLDL Cholesterol HDL Cholesterol Cholesterol/HDL Ratio TSH Free T4 Free T3 Urine Color Yellow Urine Appearance Sl hazy Urine pH 5 Ur Specific Cory 1.015 Urine Protein 3+ H Urine Glucose (UA) Norm Urine Ketones Negative Urine Occult Blood Neg Urine Nitrate Negative Urine Bilirubin 1+ H Urine Urobilinogen Norm Ur Leukocyte Esterase Negative Urine RBC None Urine WBC 5-10 H Ur Squamous Epith Cells 5-10 H Amorphous Sediment 2+ Urine Bacteria Trace Hyaline Casts 0-4 H Urine Mucus 1+ Ur Random Microalbumin 144 H Ur Random Sodium 22 Ur Random Potassium 67 Ur Random Chloride 23 Urine Creatinine 146 150 Microalb/Creat Ratio 986 H 07/30/19 07/30/19 07/30/19 20:40 20:40 20:50 RBC MCV MCH MCHC RDW MPV Neut % (Auto) Lymph % (Auto) [place] % (Auto) Eos % (Auto) Baso % (Auto) Neut # (Auto) Lymph # (Auto) [place] # (Auto) Eos # (Auto) Baso # (Auto) Nucleated RBC % (auto) Nucleated RBCs # D-Dimer 1.24 H Specimen Type Sample Site ABG pH ABG pCO2 ABG pO2 ABG HCO3 ABG O2 Saturation ABG Base Excess Wil Test A-a O2 Gradient Hematocrit Hgb O2 Saturation Carboxyhemoglobin Methemoglobin Total Hemoglobin Sodium Potassium Glucose Ionized Calcium O2 Delivery Device O2 Liters/Min Specimen Drawn By Behavioral Sciences Instructor ID POC Glucose Estimat Average Glucose Hemoglobin A1c Calcium 10.3 H Phosphorus Magnesium Total Bilirubin 0.2 AST 31 ALT < 5 Alkaline Phosphatase 162 H Ammonia 26 Creatine Kinase 900 H* Troponin I 6 Hour Troponin I Hi Sens Del Troponin T Baseline Troponin T 120 Minute NT-Pro-B Natriuret Pep 6163 H Total Protein 6.2 L Albumin 3.0 L Globulin 3.2 Triglycerides Cholesterol LDL Cholesterol, Calc Total VLDL Cholesterol HDL Cholesterol Cholesterol/HDL Ratio TSH 9.14 H Free T4 Free T3 Urine Color Urine Appearance Urine pH Ur Specific Cory Urine Protein Urine Glucose (UA) Urine Ketones Urine Occult Blood Urine Nitrate Urine Bilirubin Urine Urobilinogen Ur Leukocyte Esterase Urine RBC Urine WBC Ur Squamous Epith Cells Amorphous Sediment Urine Bacteria Hyaline Casts Urine Mucus Ur Random Microalbumin Ur Random Sodium Ur Random Potassium Ur Random Chloride Urine Creatinine Microalb/Creat Ratio 07/30/19 07/30/19 07/30/19 22:30 22:30 22:30 RBC 2.71 L MCV 101.1 H MCH 30.3 MCHC 29.9 L RDW 13.6 MPV 11.5 H Neut % (Auto) 68.5 Lymph % (Auto) 19.9 [place] % (Auto) 10.3 Eos % (Auto) 0.4 Baso % (Auto) 0.2 Neut # (Auto) 6.7 Lymph # (Auto) 1.9 [place] # (Auto) 1.0 H Eos # (Auto) 0.0 Baso # (Auto) 0.0 Nucleated RBC % (auto) 0 Nucleated RBCs # 0.0 D-Dimer Specimen Type Sample Site ABG pH ABG pCO2 ABG pO2 ABG HCO3 ABG O2 Saturation ABG Base Excess Wil Test A-a O2 Gradient Hematocrit Hgb O2 Saturation Carboxyhemoglobin Methemoglobin Total Hemoglobin Sodium Potassium Glucose Ionized Calcium O2 Delivery Device O2 Liters/Min Specimen Drawn By Behavioral Sciences Instructor ID POC Glucose Estimat Average Glucose Hemoglobin A1c Calcium 10.0 Phosphorus Magnesium Total Bilirubin AST ALT Alkaline Phosphatase Ammonia Creatine Kinase Troponin I 6 Hour Troponin I Hi Sens Del Troponin T Baseline 52 H Troponin T 120 Minute NT-Pro-B Natriuret Pep Total Protein Albumin Globulin Triglycerides Cholesterol LDL Cholesterol, Calc Total VLDL Cholesterol HDL Cholesterol Cholesterol/HDL Ratio TSH Free T4 1.34 Free T3 2.1 Urine Color Urine Appearance Urine pH Ur Specific Cory Urine Protein Urine Glucose (UA) Urine Ketones Urine Occult Blood Urine Nitrate Urine Bilirubin Urine Urobilinogen Ur Leukocyte Esterase Urine RBC Urine WBC Ur Squamous Epith Cells Amorphous Sediment Urine Bacteria Hyaline Casts Urine Mucus Ur Random Microalbumin Ur Random Sodium Ur Random Potassium Ur Random Chloride Urine Creatinine Microalb/Creat Ratio 07/31/19 07/31/19 07/31/19 01:25 01:25 02:38 RBC 3.11 L MCV 99.0 MCH 30.5 MCHC 30.8 RDW 13.6 MPV 11.3 H Neut % (Auto) 68.5 Lymph % (Auto) 17.5 [place] % (Auto) 11.7 Eos % (Auto) 0.9 Baso % (Auto) 0.3 Neut # (Auto) 8.0 H Lymph # (Auto) 2.1 [place] # (Auto) 1.4 H Eos # (Auto) 0.1 Baso # (Auto) 0.0 Nucleated RBC % (auto) 0 Nucleated RBCs # 0.0 D-Dimer Specimen Type Sample Site ABG pH ABG pCO2 ABG pO2 ABG HCO3 ABG O2 Saturation ABG Base Excess Wil Test A-a O2 Gradient Hematocrit Hgb O2 Saturation Carboxyhemoglobin Methemoglobin Total Hemoglobin Sodium Potassium Glucose Ionized Calcium O2 Delivery Device O2 Liters/Min Specimen Drawn By Behavioral Sciences Instructor ID POC Glucose 177 Estimat Average Glucose Hemoglobin A1c Calcium 10.2 Phosphorus Magnesium Total Bilirubin 0.2 AST 29 ALT < 5 Alkaline Phosphatase 170 H Ammonia Creatine Kinase 846 H* Troponin I 6 Hour Troponin I Hi Sens Del Troponin T Baseline Troponin T 120 Minute NT-Pro-B Natriuret Pep Total Protein 6.5 L Albumin 3.4 L Globulin 3.1 Triglycerides Cholesterol LDL Cholesterol, Calc Total VLDL Cholesterol HDL Cholesterol Cholesterol/HDL Ratio TSH Free T4 Free T3 Urine Color Urine Appearance Urine pH Ur Specific Cory Urine Protein Urine Glucose (UA) Urine Ketones Urine Occult Blood Urine Nitrate Urine Bilirubin Urine Urobilinogen Ur Leukocyte Esterase Urine RBC Urine WBC Ur Squamous Epith Cells Amorphous Sediment Urine Bacteria Hyaline Casts Urine Mucus Ur Random Microalbumin Ur Random Sodium Ur Random Potassium Ur Random Chloride Urine Creatinine Microalb/Creat Ratio 07/31/19 07/31/19 07/31/19 03:56 03:56 03:56 RBC 3.14 L MCV 100.3 H MCH 30.6 MCHC 30.5 RDW 13.6 MPV 11.8 H Neut % (Auto) 78.1 Lymph % (Auto) 11.2 [place] % (Auto) 9.2 Eos % (Auto) 0.4 Baso % (Auto) 0.2 Neut # (Auto) 12.6 H Lymph # (Auto) 1.8 [place] # (Auto) 1.5 H Eos # (Auto) 0.1 Baso # (Auto) 0.0 Nucleated RBC % (auto) 0 Nucleated RBCs # 0.0 D-Dimer Specimen Type Sample Site ABG pH ABG pCO2 ABG pO2 ABG HCO3 ABG O2 Saturation ABG Base Excess Wil Test A-a O2 Gradient Hematocrit Hgb O2 Saturation Carboxyhemoglobin Methemoglobin Total Hemoglobin Sodium Potassium Glucose Ionized Calcium O2 Delivery Device O2 Liters/Min Specimen Drawn By Behavioral Sciences Instructor ID POC Glucose Estimat Average Glucose 180 Hemoglobin A1c 7.9 H Calcium 10.2 Phosphorus 5.9 H Magnesium 3.1 H Total Bilirubin 0.2 AST 30 ALT < 5 Alkaline Phosphatase 172 H Ammonia Creatine Kinase Troponin I 6 Hour Troponin I Hi Sens Del Troponin T Baseline Troponin T 120 Minute NT-Pro-B Natriuret Pep Total Protein 6.2 L Albumin 3.4 L Globulin 2.8 Triglycerides 153 H Cholesterol 125 LDL Cholesterol, Calc 55 Total VLDL Cholesterol 31 H HDL Cholesterol 39 L Cholesterol/HDL Ratio 3.21 TSH Free T4 Free T3 Urine Color Urine Appearance Urine pH Ur Specific Cory Urine Protein Urine Glucose (UA) Urine Ketones Urine Occult Blood Urine Nitrate Urine Bilirubin Urine Urobilinogen Ur Leukocyte Esterase Urine RBC Urine WBC Ur Squamous Epith Cells Amorphous Sediment Urine Bacteria Hyaline Casts Urine Mucus Ur Random Microalbumin Ur Random Sodium Ur Random Potassium Ur Random Chloride Urine Creatinine Microalb/Creat Ratio 07/31/19 07/31/19 03:56 04:38 RBC MCV MCH MCHC RDW MPV Neut % (Auto) Lymph % (Auto) [place] % (Auto) Eos % (Auto) Baso % (Auto) Neut # (Auto) Lymph # (Auto) [place] # (Auto) Eos # (Auto) Baso # (Auto) Nucleated RBC % (auto) Nucleated RBCs # D-Dimer Specimen Type Arterial Sample Site Brachial, left ABG pH 7.27 L ABG pCO2 50.9 H ABG pO2 88.2 ABG HCO3 23.6 ABG O2 Saturation 96.4 ABG Base Excess -3.5 L Wil Test N/a A-a O2 Gradient 1.9 L Hematocrit 31.9 L Hgb O2 Saturation 94.7 L Carboxyhemoglobin 0.6 Methemoglobin 1.1 Total Hemoglobin 10.4 L Sodium 131.0 Potassium 5.5 H Glucose 208.0 H Ionized Calcium 1.3 O2 Delivery Device Nc O2 Liters/Min 3.0 Specimen Drawn By Behavioral Sciences Instructor VAUGHN wagoner POC Glucose Estimat Average Glucose Hemoglobin A1c Calcium Phosphorus Magnesium Total Bilirubin AST ALT Alkaline Phosphatase Ammonia Creatine Kinase Troponin I 6 Hour 59.12 H Troponin I Hi Sens Del 7.12 Troponin T Baseline Troponin T 120 Minute NT-Pro-B Natriuret Pep Total Protein Albumin Globulin Triglycerides Cholesterol LDL Cholesterol, Calc Total VLDL Cholesterol HDL Cholesterol Cholesterol/HDL Ratio TSH Free T4 Free T3 Urine Color Urine Appearance Urine pH Ur Specific Cory Urine Protein Urine Glucose (UA) Urine Ketones Urine Occult Blood Urine Nitrate Urine Bilirubin Urine Urobilinogen Ur Leukocyte Esterase Urine RBC Urine WBC Ur Squamous Epith Cells Amorphous Sediment Urine Bacteria Hyaline Casts Urine Mucus Ur Random Microalbumin Ur Random Sodium Ur Random Potassium Ur Random Chloride Urine Creatinine Microalb/Creat Ratio A&P Additional A&P Information 1. MATILDA- likely from meds- bumex and arb. likely atn -check renal us check ua, urine lytes -monitor closely w/ ivf- will also give lasix 2. hypothyroidism- tsh 9-adjust levothyroxine as per medicine 3. resp acidosis- bipap per hospitalist 4. bradycardia- likely from cardiac disease and hyperkalemia- s/p pacemaker overnight 5. hyperkalemia and oliguric renal failure- in the setting of systolic chf and mitral regurg- will plan for a temporary catheter and dialyze this am -give d50 and reg insulin and kayexalate now 6. dm care 7. i discussed the case w/ pts rn and DR. Matthew appreciate Dr. Gregorio of cardiology Attestations Medical Necessity Statement*: matilda, bradycardia, oliguric Time Spent in Patient Care: Greater than 35 minutes (>than 50% of time spent in counselling and/or direct pt care on unit) . 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
--- NOTE | 2019-07-31 05:38 | PM.EVENT ---
Event Note Event Note: I evaluated the patient status post pacemaker placement, currently her heart rate is paced at 50, rhythm seems to be junctional, blood pressure 120/70, Patient is able to communicate follow verbal commands, she is alert and oriented but her mentation is fluctuant Active issues Her potassium has increased from 5.3-5.7 She is still not making enough urine urine output is less than 200 in last 12 hours Plan She is currently paced I would continue dopamine drip at 10 for now For hypercapnic respiratory failure we will try BiPAP for now she will be high risk for intubation We will consult general surgery to get a temporary dialysis catheter Dr. Lisa would like to be proactive about this oliguric state and hyperkalemia and prepare her for dialysis sooner than later
[2019-07-31] MEDS: insulin regular-human 10 UNIT in SYRINGE 1 EACH IVP (06:11)
[2019-07-31] MEDS: dextrose 50% syringe 50 mL IVP (06:11)
[2019-07-31] MEDS: sodium polystyrene sulfonate 15 gm/60 mL Btl 30 GM PO (06:11)
--- NOTE | 2019-07-31 06:53 | PM.CONSULT ---
Providers/Reason For Consult Consulting Physican/Specialty*: General Surgery Gucci Haddad MD Reason for Consult*: Requesting temporary dialysis catheter placement. Attending Physician: Niko Caceres MD History of Present Illness History of Present Illness Vaibhav Ramsey is a 78 year old female admitted with what appears to be acute on chronic renal failure. At least temporary dialysis has been recommended by the senior network engineer, and so I was contacted this morning about placing a temporary dialysis catheter. The patient seems to indicate that she has never had one of these before. Review of Systems Narrative: Unable to completely obtain with any accuracy, as the patient is on BiPAP and somewhat difficult to understand. Meds/Allergies Home Medications and Allergies Allergies Allergy/AdvReac Type Severity Reaction Status Date / Time codeine Allergy patient Verified 07/31/19 06:57 doesn't recall Iodinated Contrast Media Allergy renal Verified 07/31/19 06:57 disease naproxen Allergy renal Verified 07/31/19 06:57 disease Penicillins Allergy hives Verified 07/31/19 06:57 shellfish derived Allergy unknown Verified 07/31/19 06:57 Sulfa (Sulfonamide Allergy itching Verified 07/31/19 06:57 Antibiotics) tramadol Allergy makes me Verified 07/31/19 06:57 crazy garlic Allergy unknown Uncoded 07/31/19 06:57 Current Medications Current Medications Generic Name Dose Route Start Last Admin Trade Name Freq PRN Reason Stop Dose Admin Albuterol/Ipratropium 3 ml 07/30/19 21:00 07/31/19 02:38 Duoneb INHALATION 3 ml Q6H.RESPIRATORY GONZALO Administration Enoxaparin Sodium 40 mg 07/31/19 02:15 07/31/19 02:43 Lovenox SUBCUT 40 mg Q24H GONZALO Administration Sodium Chloride 1,000 mls @ 125 mls/hr 07/30/19 20:30 07/31/19 02:42 Sodium Chloride 0.9% IV 125 mls/hr .Q8H GONZALO Administration Dopamine HCl/Dextrose 400 mg in 250 mls @ 19.163 mls/hr 07/30/19 23:45 07/31/19 02:43 Intropin Drip IV 10 mcg/kg/min CONT GONZALO 38.3 mls/hr Titration Protocol 5 MCG/KG/MIN Insulin Aspart 0 unit 07/30/19 20:00 07/31/19 02:43 Novolog SUBCUT 4 unit Q6H GONZALO Administration Protocol PFSH Acute PFSH: Statuses (acute, chronic, etc) shown below reflect problem list status as previously entered and may not be historically accurate Medical History (Updated 07/31/19 @ 07:05 by Gucci Haddad MD) Chronic anticoagulation (Acute) Chronic back pain (Acute) COPD (chronic obstructive pulmonary disease) (Acute) Diastolic heart failure (Acute) Former smoker (Acute) Gout (Acute) History of pulmonary embolism (Acute) Hypertension (Acute) Hypothyroidism (Acute) Normal coronary angiogram (Acute) Cardiac angiogram done in September 2015 Paroxysmal A-fib (Acute) Type 2 diabetes mellitus (Acute) Surgical History (Updated 07/31/19 @ 07:05 by Gucci Haddad MD) H/O left knee surgery (Acute) History of cholecystectomy (Acute) Tubal ligation status (Acute) Family History Other Diabetes Social History Smoking and tobacco status: former smoker Alcohol intake: never Substance/Drug Use: never Household members: family Housing: House Vitals/I&O/Wt Last Vital Signs Temp 97.9 F 07/31/19 04:00 Pulse 58 L 07/31/19 05:30 Resp 14 07/31/19 04:00 BP 109/40 07/31/19 04:00 Pulse Ox 96 07/31/19 05:30 07/30/19 07/30/19 07/31/19 14:59 22:59 06:59 Intake Total 680.1 / 680.1 1047.78 / 1727.88 Output Total 200 / 200 Balance 680.1 / 680.1 847.78 / 1527.88 Weight last 48 hrs Weight 225 lb 5 oz Physical Exam Narrative: EXAM NARRATIVE: The patient was encountered in her room in the ICU. She is on a BiPAP mask and is somewhat difficult to understand when she tries to talk. She has a triple-lumen catheter in the right internal jugular vein. She is obese and her upper chest landmarks are somewhat difficult to palpate. The abdomen is obese and reveals perhaps a very small umbilical hernia but is otherwise soft. The extremities reveal perhaps mild edema. She has a temporary pacemaker in the right femoral vein location. Urinary Catheter Management^: Ferrari: Cath Placed During This Visit: no A&P Assessment and plan (1) Acute on chronic renal failure: I have discussed dialysis catheter placements with the patient. She currently has a triple-lumen in the right internal jugular vein and a temporary pacemaker in the right femoral vein. Given her body habitus and the fact that she has been on anticoagulation, I have discussed a left femoral dialysis catheter placement with her, at least as a temporary location. Surgical risks of bleeding, infection, etc. were all discussed. She is agreeable to proceeding. Status: Acute Code(s): N17.9 - Acute kidney failure, unspecified; N18.9 - Chronic kidney disease, unspecified Consult Attestations Medical Necessity Statement: My notation. 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
[2019-07-31 07:32] LABS: Glucose Point of Care 325 mg/dL (70-110)
[2019-07-31 07:59] LABS: Hepatitis B Surface Antigen. Non-Reactive (Nonreactive)
[2019-07-31] MEDS: DOPamine drip 400 MG/250 ML PREMIX 38.3 MG IV (08:03)
[2019-07-31 08:31] LABS: Creatine Phosphokinase 878 U/L (26-192)
[2019-07-31 08:32] LABS: ABG PCO2 53.1 mmHg (35-45); ABG PH Result 7.25 (7.35-7.45); Arterial Blood Gas Hematocrit 30.2 % (37-47); Base Excess ABG -3.9 mmol/L (-2.0-2.0); Blood Gas Allen Test Pos; Blood Gas Sample Site Radial, left; Blood Gas Sample Type Arterial; HCO3 ABG 23.5 mmol/L (22-26); Oxygen Device BIPAP; PO2 ABG 97.2 mmHg (80.0-100.0)
[2019-07-31] MEDS: FUROsemide 10 mg/mL SDV 4mL 40 MG IVP (09:38)
--- NOTE | 2019-07-31 09:59 | P.ANES_ITS ---
Pre-Anesthetic Assessment Pre-Anesthetic Assessment: Height/Weight: Height 1.68 m Weight 102.2 kg Temp Pulse Resp BP Pulse Ox 97.9 F 62 12 108/32 96 07/31/19 04:00 07/31/19 09:11 07/31/19 08:20 07/31/19 08:00 07/31/19 09:11 Preop Diagnosis: Renal failure Proposed Procedure: Operation Date: 07/31/19 11:30 Proposed Procedures p Dialysis Catheter Insertion(Not Applicable) - Gucci Haddad MD Last Intake: 23:59 Social: Social History: Tobacco Exam: Pre-Anes Outpt Exam: alert, oriented x 3 and clear to auscultation bilaterally Additional Exam Findings (including area of procedure): irreg, irreg Airway: Additional comments: BiPaP Pulmonary: Pulmonary: COPD and Sleep apnea Comments: h/o PE CV/HEM: CV/HEM: Afib, Anemia, CAD, CHF and HTN Comments: bradycardia with heart block : Comments: Acute renal failure with hyperalemia on CKD Anesthetic Plan: ASA status: V Anesthesia: MAC Meds/Allergies Current Medications: Current Medications Generic Name Dose Route Start Last Admin Trade Name Freq PRN Reason Stop Dose Admin Albuterol/Ipratrop ium 3 ml 07/30/19 21:00 07/31/19 08:19 Duoneb INHALATION 3 ml Q6H.RESPIRATORY S CH Administration Enoxaparin Sodium 40 mg 07/31/19 02:15 07/31/19 02:43 Lovenox SUBCUT 40 mg Q24H GONZALO Administration Sodium Chloride 1,000 mls @ 125 m ls/hr 07/30/19 20:30 07/31/19 09:52 Sodium Chloride 0.9% IV 0 mls/hr .Q8H GONZALO Infusion Dopamine HCl/Dextr ose 400 mg in 250 mls @ 19.163 mls/hr 07/30/19 23:45 07/31/19 08:03 Intropin Drip IV 10 mcg/kg/min CONT GONZALO 38.3 mls/hr Administration Protocol 5 MCG/KG/MIN Imipenem/Cilastati n Sodium 250 100 mls @ 200 mls /hr 07/31/19 09:30 07/31/19 09:51 mg/ Sodium Chlor berry IV 200 mls/hr Q12H GONZALO Administration Protocol Insulin Aspart 0 unit 07/30/19 20:00 07/31/19 07:32 Novolog SUBCUT 12 unit Q6H GONZALO Administration Protocol PFSH Anesthesia PFSH: Medical History (Updated 07/31/19 @ 07:05 by Gucci Haddad MD) Chronic anticoagulation (Acute) Chronic back pain (Acute) COPD (chronic obstructive pulmonary disease) (Acute) Diastolic heart failure (Acute) Former smoker (Acute) Gout (Acute) History of pulmonary embolism (Acute) Hypertension (Acute) Hypothyroidism (Acute) Normal coronary angiogram (Acute) Cardiac angiogram done in September 2015 Paroxysmal A-fib (Acute) Type 2 diabetes mellitus (Acute) Surgical History (Updated 07/31/19 @ 07:05 by Gucci Haddad MD) H/O left knee surgery (Acute) History of cholecystectomy (Acute) Tubal ligation status (Acute) Family History Other Diabetes Social History Smoking and tobacco status: former smoker Alcohol intake: never Substance/Drug Use: never Household members: family Housing: House Data Anesthesia CBC & Chem 7: 07/31/19 03:56 07/31/19 03:56 Other Labs: Laboratory Results - last 48 hr 07/30/19 07/30/19 07/30/19 01:25 01:54 19:07 WBC 11.2 H RBC 2.86 L Hgb 9.0 L Hct 29.5 L MCV 103.1 H MCH 31.5 MCHC 30.5 RDW 13.6 Plt Count 221 MPV 11.6 H Neut % (Auto) 75.3 Lymph % (Auto) 12.3 [place] % (Auto) 10.9 Eos % (Auto) 0.4 Baso % (Auto) 0.2 Neut # (Auto) 8.4 H Lymph # (Auto) 1.4 [place] # (Auto) 1.2 H Eos # (Auto) 0.0 Baso # (Auto) 0.0 Nucleated RBC % (auto) 0 Nucleated RBCs # 0.0 D-Dimer Specimen Type arterial Sample Site left,radial ABG pH 7.31 L ABG pCO2 50.8 H ABG pO2 73.8 L ABG HCO3 25.5 ABG O2 Saturation 94.4 ABG Base Excess -1.2 Wil Test pos A-a O2 Gradient 16.1 H Hematocrit 30.6 L Hgb O2 Saturation 93.3 L Carboxyhemoglobin 0.6 Methemoglobin 0.5 Total Hemoglobin 10.0 L Sodium 131.0 Potassium 5.2 H Glucose 170.0 H Ionized Calcium 1.3 O2 Delivery Device nc O2 Liters/Min 3.0 FiO2 Specimen Drawn By rizwana Teletype Or Varitype Keyboard Operator ID hinja Chloride Carbon Dioxide Anion Gap BUN Creatinine POC Glucose Estimat Average Glucose Hemoglobin A1c Calcium Phosphorus Magnesium Total Bilirubin AST ALT Alkaline Phosphatase Ammonia Creatine Kinase Troponin I 6 Hour Troponin I Hi Sens Del Troponin T Baseline Troponin T 120 Minute 66.46 H NT-Pro-B Natriuret Pep Total Protein Albumin Globulin Triglycerides Cholesterol LDL Cholesterol, Calc Total VLDL Cholesterol HDL Cholesterol Cholesterol/HDL Ratio TSH Free T4 Free T3 Urine Color Urine Appearance Urine pH Ur Specific [place] Urine Protein Urine Glucose (UA) Urine Ketones Urine Occult Blood Urine Nitrate Urine Bilirubin Urine Urobilinogen Ur Leukocyte Esterase Urine RBC Urine WBC Ur Squamous Epith Cells Amorphous Sediment Urine Bacteria Hyaline Casts Urine Mucus Ur Random Microalbumin Ur Random Sodium Ur Random Potassium Ur Random Chloride Urine Creatinine Microalb/Creat Ratio Hep Bs Antigen 07/30/19 07/30/19 07/30/19 19:07 20:10 20:10 WBC RBC Hgb Hct MCV MCH MCHC RDW Plt Count MPV Neut % (Auto) Lymph % (Auto) [place] % (Auto) Eos % (Auto) Baso % (Auto) Neut # (Auto) Lymph # (Auto) [place] # (Auto) Eos # (Auto) Baso # (Auto) Nucleated RBC % (auto) Nucleated RBCs # D-Dimer Specimen Type Sample Site ABG pH ABG pCO2 ABG pO2 ABG HCO3 ABG O2 Saturation ABG Base Excess Wil Test A-a O2 Gradient Hematocrit Hgb O2 Saturation Carboxyhemoglobin Methemoglobin Total Hemoglobin Sodium 128 L Potassium 5.7 H Glucose 224 H Ionized Calcium O2 Delivery Device O2 Liters/Min FiO2 Specimen Drawn By Teletype Or Varitype Keyboard Operator ID Chloride 92 L Carbon Dioxide 25 Anion Gap 16.7 BUN 107 H* Creatinine 5.1 H POC Glucose Estimat Average Glucose Hemoglobin A1c Calcium 9.7 Phosphorus Magnesium Total Bilirubin AST ALT Alkaline Phosphatase Ammonia Creatine Kinase Troponin I 6 Hour Troponin I Hi Sens Del Troponin T Baseline Troponin T 120 Minute NT-Pro-B Natriuret Pep Total Protein Albumin Globulin Triglycerides Cholesterol LDL Cholesterol, Calc Total VLDL Cholesterol HDL Cholesterol Cholesterol/HDL Ratio TSH Free T4 Free T3 Urine Color Yellow Urine Appearance Sl hazy Urine pH 5 Ur Specific [place] 1.015 Urine Protein 3+ H Urine Glucose (UA) Norm Urine Ketones Negative Urine Occult Blood Neg Urine Nitrate Negative Urine Bilirubin 1+ H Urine Urobilinogen Norm Ur Leukocyte Esterase Negative Urine RBC None Urine WBC 5-10 H Ur Squamous Epith Cells 5-10 H Amorphous Sediment 2+ Urine Bacteria Trace Hyaline Casts 0-4 H Urine Mucus 1+ Ur Random Microalbumin 144 H Ur Random Sodium 22 Ur Random Potassium 67 Ur Random Chloride 23 Urine Creatinine 146 150 Microalb/Creat Ratio 986 H Hep Bs Antigen 07/30/19 07/30/19 07/30/19 20:40 20:40 20:50 WBC RBC Hgb Hct MCV MCH MCHC RDW Plt Count MPV Neut % (Auto) Lymph % (Auto) [place] % (Auto) Eos % (Auto) Baso % (Auto) Neut # (Auto) Lymph # (Auto) [place] # (Auto) Eos # (Auto) Baso # (Auto) Nucleated RBC % (auto) Nucleated RBCs # D-Dimer 1.24 H Specimen Type Sample Site ABG pH ABG pCO2 ABG pO2 ABG HCO3 ABG O2 Saturation ABG Base Excess Wil Test A-a O2 Gradient Hematocrit Hgb O2 Saturation Carboxyhemoglobin Methemoglobin Total Hemoglobin Sodium 130 L Potassium 5.8 H Glucose 201 H Ionized Calcium O2 Delivery Device O2 Liters/Min FiO2 Specimen Drawn By Teletype Or Varitype Keyboard Operator ID Chloride 93 L Carbon Dioxide 24 Anion Gap 18.8 BUN 96 H* Creatinine 4.7 H POC Glucose Estimat Average Glucose Hemoglobin A1c Calcium 10.3 H Phosphorus Magnesium Total Bilirubin 0.2 AST 31 ALT < 5 Alkaline Phosphatase 162 H Ammonia 26 Creatine Kinase 900 H* Troponin I 6 Hour Troponin I Hi Sens Del Troponin T Baseline Troponin T 120 Minute NT-Pro-B Natriuret Pep 6163 H Total Protein 6.2 L Albumin 3.0 L Globulin 3.2 Triglycerides Cholesterol LDL Cholesterol, Calc Total VLDL Cholesterol HDL Cholesterol Cholesterol/HDL Ratio TSH 9.14 H Free T4 Free T3 Urine Color Urine Appearance Urine pH Ur Specific [place] Urine Protein Urine Glucose (UA) Urine Ketones Urine Occult Blood Urine Nitrate Urine Bilirubin Urine Urobilinogen Ur Leukocyte Esterase Urine RBC Urine WBC Ur Squamous Epith Cells Amorphous Sediment Urine Bacteria Hyaline Casts Urine Mucus Ur Random Microalbumin Ur Random Sodium Ur Random Potassium Ur Random Chloride Urine Creatinine Microalb/Creat Ratio Hep Bs Antigen 07/30/19 07/30/19 07/30/19 22:30 22:30 22:30 WBC 9.8 RBC 2.71 L Hgb 8.2 L Hct 27.4 L MCV 101.1 H MCH 30.3 MCHC 29.9 L RDW 13.6 Plt Count 212 MPV 11.5 H Neut % (Auto) 68.5 Lymph % (Auto) 19.9 [place] % (Auto) 10.3 Eos % (Auto) 0.4 Baso % (Auto) 0.2 Neut # (Auto) 6.7 Lymph # (Auto) 1.9 [place] # (Auto) 1.0 H Eos # (Auto) 0.0 Baso # (Auto) 0.0 Nucleated RBC % (auto) 0 Nucleated RBCs # 0.0 D-Dimer Specimen Type Sample Site ABG pH ABG pCO2 ABG pO2 ABG HCO3 ABG O2 Saturation ABG Base Excess Wil Test A-a O2 Gradient Hematocrit Hgb O2 Saturation Carboxyhemoglobin Methemoglobin Total Hemoglobin Sodium 131 L Potassium 5.5 H Glucose 232 H Ionized Calcium O2 Delivery Device O2 Liters/Min FiO2 Specimen Drawn By Teletype Or Varitype Keyboard Operator ID Chloride 95 L Carbon Dioxide 23 Anion Gap 18.5 BUN 97 H* Creatinine 4.8 H POC Glucose Estimat Average Glucose Hemoglobin A1c Calcium 10.0 Phosphorus Magnesium Total Bilirubin AST ALT Alkaline Phosphatase Ammonia Creatine Kinase Troponin I 6 Hour Troponin I Hi Sens Del Troponin T Baseline 52 H Troponin T 120 Minute NT-Pro-B Natriuret Pep Total Protein Albumin Globulin Triglycerides Cholesterol LDL Cholesterol, Calc Total VLDL Cholesterol HDL Cholesterol Cholesterol/HDL Ratio TSH Free T4 1.34 Free T3 2.1 Urine Color Urine Appearance Urine pH Ur Specific [place] Urine Protein Urine Glucose (UA) Urine Ketones Urine Occult Blood Urine Nitrate Urine Bilirubin Urine Urobilinogen Ur Leukocyte Esterase Urine RBC Urine WBC Ur Squamous Epith Cells Amorphous Sediment Urine Bacteria Hyaline Casts Urine Mucus Ur Random Microalbumin Ur Random Sodium Ur Random Potassium Ur Random Chloride Urine Creatinine Microalb/Creat Ratio Hep Bs Antigen 07/31/19 07/31/19 07/31/19 01:25 01:25 02:38 WBC 11.8 H RBC 3.11 L Hgb 9.5 L Hct 30.8 L MCV 99.0 MCH 30.5 MCHC 30.8 RDW 13.6 Plt Count 278 MPV 11.3 H Neut % (Auto) 68.5 Lymph % (Auto) 17.5 [place] % (Auto) 11.7 Eos % (Auto) 0.9 Baso % (Auto) 0.3 Neut # (Auto) 8.0 H Lymph # (Auto) 2.1 [place] # (Auto) 1.4 H Eos # (Auto) 0.1 Baso # (Auto) 0.0 Nucleated RBC % (auto) 0 Nucleated RBCs # 0.0 D-Dimer Specimen Type Sample Site ABG pH ABG pCO2 ABG pO2 ABG HCO3 ABG O2 Saturation ABG Base Excess Wil Test A-a O2 Gradient Hematocrit Hgb O2 Saturation Carboxyhemoglobin Methemoglobin Total Hemoglobin Sodium 129 L Potassium 5.3 H Glucose 172 H Ionized Calcium O2 Delivery Device O2 Liters/Min FiO2 Specimen Drawn By Teletype Or Varitype Keyboard Operator ID Chloride 92 L Carbon Dioxide 25 Anion Gap 17.3 BUN 104 H* Creatinine 5.1 H POC Glucose 177 Estimat Average Glucose Hemoglobin A1c Calcium 10.2 Phosphorus Magnesium Total Bilirubin 0.2 AST 29 ALT < 5 Alkaline Phosphatase 170 H Ammonia Creatine Kinase 846 H* Troponin I 6 Hour Troponin I Hi Sens Del Troponin T Baseline Troponin T 120 Minute NT-Pro-B Natriuret Pep Total Protein 6.5 L Albumin 3.4 L Globulin 3.1 Triglycerides Cholesterol LDL Cholesterol, Calc Total VLDL Cholesterol HDL Cholesterol Cholesterol/HDL Ratio TSH Free T4 Free T3 Urine Color Urine Appearance Urine pH Ur Specific [place] Urine Protein Urine Glucose (UA) Urine Ketones Urine Occult Blood Urine Nitrate Urine Bilirubin Urine Urobilinogen Ur Leukocyte Esterase Urine RBC Urine WBC Ur Squamous Epith Cells Amorphous Sediment Urine Bacteria Hyaline Casts Urine Mucus Ur Random Microalbumin Ur Random Sodium Ur Random Potassium Ur Random Chloride Urine Creatinine Microalb/Creat Ratio Hep Bs Antigen 07/31/19 07/31/19 07/31/19 03:56 03:56 03:56 WBC 16.1 H RBC 3.14 L Hgb 9.6 L Hct 31.5 L MCV 100.3 H MCH 30.6 MCHC 30.5 RDW 13.6 Plt Count 305 MPV 11.8 H Neut % (Auto) 78.1 Lymph % (Auto) 11.2 [place] % (Auto) 9.2 Eos % (Auto) 0.4 Baso % (Auto) 0.2 Neut # (Auto) 12.6 H Lymph # (Auto) 1.8 [place] # (Auto) 1.5 H Eos # (Auto) 0.1 Baso # (Auto) 0.0 Nucleated RBC % (auto) 0 Nucleated RBCs # 0.0 D-Dimer Specimen Type Sample Site ABG pH ABG pCO2 ABG pO2 ABG HCO3 ABG O2 Saturation ABG Base Excess Wil Test A-a O2 Gradient Hematocrit Hgb O2 Saturation Carboxyhemoglobin Methemoglobin Total Hemoglobin Sodium 132 L Potassium 5.7 H Glucose 237 H Ionized Calcium O2 Delivery Device O2 Liters/Min FiO2 Specimen Drawn By Teletype Or Varitype Keyboard Operator ID Chloride 93 L Carbon Dioxide 22 Anion Gap 22.7 H BUN 92 H* Creatinine 5.0 H POC Glucose Estimat Average Glucose 180 Hemoglobin A1c 7.9 H Calcium 10.2 Phosphorus 5.9 H Magnesium 3.1 H Total Bilirubin 0.2 AST 30 ALT < 5 Alkaline Phosphatase 172 H Ammonia Creatine Kinase Troponin I 6 Hour Troponin I Hi Sens Del Troponin T Baseline Troponin T 120 Minute NT-Pro-B Natriuret Pep Total Protein 6.2 L Albumin 3.4 L Globulin 2.8 Triglycerides 153 H Cholesterol 125 LDL Cholesterol, Calc 55 Total VLDL Cholesterol 31 H HDL Cholesterol 39 L Cholesterol/HDL Ratio 3.21 TSH Free T4 Free T3 Urine Color Urine Appearance Urine pH Ur Specific [place] Urine Protein Urine Glucose (UA) Urine Ketones Urine Occult Blood Urine Nitrate Urine Bilirubin Urine Urobilinogen Ur Leukocyte Esterase Urine RBC Urine WBC Ur Squamous Epith Cells Amorphous Sediment Urine Bacteria Hyaline Casts Urine Mucus Ur Random Microalbumin Ur Random Sodium Ur Random Potassium Ur Random Chloride Urine Creatinine Microalb/Creat Ratio Hep Bs Antigen 07/31/19 07/31/19 07/31/19 03:56 03:56 03:56 WBC RBC Hgb Hct MCV MCH MCHC RDW Plt Count MPV Neut % (Auto) Lymph % (Auto) [place] % (Auto) Eos % (Auto) Baso % (Auto) Neut # (Auto) Lymph # (Auto) [place] # (Auto) Eos # (Auto) Baso # (Auto) Nucleated RBC % (auto) Nucleated RBCs # D-Dimer Specimen Type Sample Site ABG pH ABG pCO2 ABG pO2 ABG HCO3 ABG O2 Saturation ABG Base Excess Wil Test A-a O2 Gradient Hematocrit Hgb O2 Saturation Carboxyhemoglobin Methemoglobin Total Hemoglobin Sodium Potassium Glucose Ionized Calcium O2 Delivery Device O2 Liters/Min FiO2 Specimen Drawn By Teletype Or Varitype Keyboard Operator ID Chloride Carbon Dioxide Anion Gap BUN Creatinine POC Glucose Estimat Average Glucose Hemoglobin A1c Calcium Phosphorus Magnesium Total Bilirubin AST ALT Alkaline Phosphatase Ammonia Creatine Kinase 878 H* Troponin I 6 Hour 59.12 H Troponin I Hi Sens Del 7.12 Troponin T Baseline Troponin T 120 Minute NT-Pro-B Natriuret Pep Total Protein Albumin Globulin Triglycerides Cholesterol LDL Cholesterol, Calc Total VLDL Cholesterol HDL Cholesterol Cholesterol/HDL Ratio TSH Free T4 Free T3 Urine Color Urine Appearance Urine pH Ur Specific [place] Urine Protein Urine Glucose (UA) Urine Ketones Urine Occult Blood Urine Nitrate Urine Bilirubin Urine Urobilinogen Ur Leukocyte Esterase Urine RBC Urine WBC Ur Squamous Epith Cells Amorphous Sediment Urine Bacteria Hyaline Casts Urine Mucus Ur Random Microalbumin Ur Random Sodium Ur Random Potassium Ur Random Chloride Urine Creatinine Microalb/Creat Ratio Hep Bs Antigen Non-reactive 07/31/19 07/31/19 07/31/19 04:38 07:28 08:20 WBC RBC Hgb Hct MCV MCH MCHC RDW Plt Count MPV Neut % (Auto) Lymph % (Auto) [place] % (Auto) Eos % (Auto) Baso % (Auto) Neut # (Auto) Lymph # (Auto) [place] # (Auto) Eos # (Auto) Baso # (Auto) Nucleated RBC % (auto) Nucleated RBCs # D-Dimer Specimen Type Arterial Arterial Sample Site Brachial, left Radial, left ABG pH 7.27 L 7.25 L ABG pCO2 50.9 H 53.1 H ABG pO2 88.2 97.2 ABG HCO3 23.6 23.5 ABG O2 Saturation 96.4 ABG Base Excess -3.5 L -3.9 L Wil Test N/a Pos A-a O2 Gradient 1.9 L Hematocrit 31.9 L 30.2 L Hgb O2 Saturation 94.7 L Carboxyhemoglobin 0.6 Methemoglobin 1.1 Total Hemoglobin 10.4 L Sodium 131.0 Potassium 5.5 H Glucose 208.0 H Ionized Calcium 1.3 O2 Delivery Device Nc Bipap O2 Liters/Min 3.0 FiO2 35.0 Specimen Drawn By Teletype Or Varitype Keyboard Operator VAUGHN wagoner cak Chloride Carbon Dioxide Anion Gap BUN Creatinine POC Glucose 325 Estimat Average Glucose Hemoglobin A1c Calcium Phosphorus Magnesium Total Bilirubin AST ALT Alkaline Phosphatase Ammonia Creatine Kinase Troponin I 6 Hour Troponin I Hi Sens Del Troponin T Baseline Troponin T 120 Minute NT-Pro-B Natriuret Pep Total Protein Albumin Globulin Triglycerides Cholesterol LDL Cholesterol, Calc Total VLDL Cholesterol HDL Cholesterol Cholesterol/HDL Ratio TSH Free T4 Free T3 Urine Color Urine Appearance Urine pH Ur Specific [place] Urine Protein Urine Glucose (UA) Urine Ketones Urine Occult Blood Urine Nitrate Urine Bilirubin Urine Urobilinogen Ur Leukocyte Esterase Urine RBC Urine WBC Ur Squamous Epith Cells Amorphous Sediment Urine Bacteria Hyaline Casts Urine Mucus Ur Random Microalbumin Ur Random Sodium Ur Random Potassium Ur Random Chloride Urine Creatinine Microalb/Creat Ratio Hep Bs Antigen Cardiac Studies: No Data to Display
[2019-07-31 10:20] LABS: Iron 76 ug/dL (37-145); Percent Saturation 41.3 % (20-50); Total Iron Binding Capacity 184 mg/dL; Unsaturated Iron Binding 108 ug/dL (112-347)
[2019-07-31 11:08] LABS: Influenza A by IFA Negative (Negative); Influenza B by IFA Negative (Negative)
[2019-07-31 11:36] LABS: Glucose Point of Care 215 mg/dL (70-110)
[2019-07-31] MEDS: heparin, porcine 1,000 unit/mL INJ 10 mL 10000 UNIT IRRIGATION (12:05)
--- NOTE | 2019-07-31 12:08 | P.OP_ITS ---
Operative Report Date of procedure: 07/31/19 Pre-op Diagnosis: Renal failure Post-op diagnosis: same Procedure Done: Temporary hemodialysis catheter placement into the left femoral vein. Implants: Hemodialysis catheter. Pathology: none sent Surgeon: Gucci Haddad Anesthesia: MAC Estimated blood loss (mL): 5 Procedure: The patient was brought to the operating room and was left in a supine position on the ICU bed in the operating room. A monitored anesthetic was induced. The left femoral region was prepped and draped in a sterile fashion. A combination of 1% lidocaine and 0.5% bupivacaine with 1 to 200,000 parts epinephrine was used for local anesthesia throughout the procedure. The left femoral vein vein was accessed with a needle and syringe as evidenced by the return of dark nonpulsatile blood. The guidewire was easily passed down the needle and the needle was removed. A scalpel was used to slightly enlarge the skin opening at the insertion point of the J-wire. Small to medium sized dilators were then sequentially placed over the guidewire to dilate the skin and subcutaneous tissue. The dialysis catheter was then easily passed over the wire into the vein. The wire was removed. Both ports aspirated venous blood very easily and were then flushed wit h hep flush solution. Both ports showed excellent flow and were left filled with concentrated hep flush solution. The catheter was sewn in place at the skin with some interrupted sutures of 2-0 nylon. A sterile dressing followed. The patient was taken back to the ICU postoperatively in stable condition.
--- NOTE | 2019-07-31 12:21 | ANE.PACU ---
 Inpatient post-anesthesia follow up: Airway intact: Yes Vital signs: Temperature 97.9 F Pulse Rate 55 Respiratory Rate 10 Blood Pressure 96/41 Pulse Oximetry 99 Oxygen Delivery Me thod Nasal Cannula Oxygen Flow Rate 3 Fraction of Inspir ed Oxygen 35 Hydration adequate: Yes Nausea and vomiting: No Pain level: 1 Mental status: Baseline Additional Comments: same mental status as preop in ICU
--- NOTE | 2019-07-31 12:47 | PC.NURSE ---
pt just back form OR after dialysis catheter placement.
[2019-07-31 13:16] LABS: Alanine Aminotransferase < 5 U/L (0-33); Albumin Level 3.2 g/dL (3.5-5.2); Alkaline Phosphatase 155 IU/L (35-105); Anion Gap 19.5 (5-19); Aspartate Amino Transferase 26 U/L (0-32); Calcium 9.8 mg/Dl (8.8-10.2); Carbon Dioxide 23 mmol/L (22-29); Chloride 93 mmol/L (98-107); Globulin 3.4 g/dL (1.3-4.6); Glucose 216 mg/dL (74-106); Potassium 5.5 mmol/L (3.5-5.1); Sodium 130 mmol/L (136-145); Total Bilirubin 0.2 mg/dL (0.15-1.2); Total Protein 6.6 g/dL (6.6-8.7)
[2019-07-31 13:28] LABS: Blood Urea Nitrogen 93 mg/dL (8-23)
[2019-07-31] MEDS: DOPamine drip 400 MG/250 ML PREMIX 46 MG IV (14:26)
--- NOTE | 2019-07-31 15:05 | PM.PN ---
Subjective Subjective: Interval history: Overnight patient continued to be in complete heart block so temporary pacemaker was placed at around midnight. On evaluation this morning patient is on BiPAP which she was placed because of disorientation overnight. Patient is drowsy but awake and arousable Patient is on dopamine at 10 and fluids running at 125 cc/h with urine output of 200 cc overnight. Patient has remained afebrile with her mean arterial pressures hanging around 55 to 60 mmHg. Patient denies of having any nausea, vomiting, chest pain, headache complains of mild dizziness. Medications: Reviewed: Yes Vitals/I&O/Wt Last Vital Signs Temp 98.0 F 07/31/19 12:19 Pulse 80 07/31/19 14:30 Resp 15 07/31/19 14:27 BP 168/70 07/31/19 14:00 Pulse Ox 99 07/31/19 14:27 07/31/19 07/31/19 07/31/19 06:59 14:59 22:59 Intake Total 1047.78 / 1727.88 1560.747 / 1560.747 Output Total 200 / 200 Balance 847.78 / 1527.88 1560.747 / 1560.747 Weight last 48 hrs Weight 102.92 kg Weight 102.2 kg Physical Exam Narrative: EXAM NARRATIVE: General: No acute distress, drowsy but arousable, AO x3 HEENT: PERRLA, pupils bilaterally equal and reactive Chest: Normal vesicular breath sounds, no added sounds, equal good air entry bilaterally CVS: S1-S2 regular, bradycardia,, pansystolic murmur in mitral area 3/6, no gallops, no rubs Abdomen: Soft, nontender, no organomegaly, bowel sounds present Neuro: No focal deficits, no facial deformity, AO x3, power 3 /5 in all limbs Urinary Catheter Management^: Ferrari: Cath Placed During This Visit: no Data : 07/31/19 03:56 07/31/19 12:40 Micro: Microbiology 07/31/19 10:05 MRSA Culture - Final Nose 07/31/19 12:50 Blood Culture - Preliminary Blood SPECIMEN COLLECTED 07/31/19 12:40 Blood Culture - Preliminary Blood SPECIMEN COLLECTED A&P Assessment and plan (1) Hyperkalemia: Status: Acute Code(s): E87.5 - Hyperkalemia (2) Complete heart block: Status: Acute Code(s): I44.2 - Atrioventricular block, complete (3) Acute kidney injury superimposed on chronic kidney disease: Status: Acute Code(s): N17.9 - Acute kidney failure, unspecified; N18.9 - Chronic kidney disease, unspecified (4) Diastolic heart failure: Status: Acute Qualifiers: Heart failure chronicity: chronic Qualified Code(s): I50.32 - Chronic diastolic (congestive) heart failure Code(s): I50.30 - Unspecified diastolic (congestive) heart failure (5) Paroxysmal A-fib: Status: Acute Code(s): I48.0 - Paroxysmal atrial fibrillation (6) Chronic anticoagulation: Status: Acute Code(s): Z79.01 - senior care (current) use of anticoagulants (7) Hypertension: Status: Acute Code(s): I10 - Essential (primary) hypertension (8) Type 2 diabetes mellitus: Status: Acute Code(s): E11.9 - Type 2 diabetes mellitus without complications (9) Acute metabolic encephalopathy: Status: Acute Code(s): G93.41 - Metabolic encephalopathy (10) High anion gap metabolic acidosis: Due to acute on chronic kidney disease. Plan for dialysis today. We will continue to monitor. Status: Acute Code(s): E87.2 - Acidosis Additional A&P Information Acute metabolic encephalopathy: Most likely from complete heart block, uremia, multiple psych medications which were being continued while patient was having acute on chronic renal failure. Acute hypoxic failure: Most likely due to drowsiness from uremia along with complete heart block. Stat ABG. Doubt its hypercapnia as patient seems to be living at PCO2 of more than 50. We will continue on BiPAP support till patient is more awake. Most likely patient should be more awake after dialysis once uremia and polypharmacy is dialyzed out. Complete heart block: Secondary to hyperkalemia: Most likely due to acute on chronic kidney disease, home dose of Cozaar, Bumex, potassium supplementation. We will hold off on Cozaar, Bumex, potassium supplementation. Hold off on home dose of metoprolol. Patient is due for dialysis today morning. Patient will get left tomorrow Shiley catheter around 11 AM. Surgical consultation appreciated. Temporary pacemaker placed overnight. On my evaluation it seems pacemaker is not capturing. Discussed with Dr. Gregorio. He will take patient back to Administrative Assistant Receptionist to readjust pacemaker under fluoroscopy. At present patient is in complete heart block but with a rate fluctuating between 50 to 60 bpm Continue with Dopamine but will increase the rate to 12. N.p.o. Fall precautions Aspiration precautions Neurochecks every 1 hours for now. Acute on chronic kidney disease.: Baseline creatinine of around 2.0-2.2. We will hold off nephrotoxic drugs. Medical reconciliation done. Continue to monitor BMP Q6h for now. Patient is oliguric to anuric. Plan is dialysis later in the day today after Shiley placement please. We will give patient a Lasix challenge with 40 mg IV stat. Strict intake and output charting. Hypertension: Blood pressure to be monitored for now. We will hold off on home dose of Cozaar and Lopressor given hyperkalemia and bradycardia. Given bradycardia patient would most likely need blood pressures over 150 systolic for proper cardiac output. Later if needed can add patient amlodipine but will hold off for now. Type 2 diabetes mellitus: We will check HbA1c tomorrow morning. Moderate insulin sliding scale every 6 hourly as patient is n.p.o. for now. History of paroxysmal A. fib/history of pulmonary embolism: For now patient is bradycardic and complete heart block. Will hold off on Lopressor as stated above. We will continue on Eliquis 2.5 mg twice daily at renal dose given renal dysfunction at right now. Will restart Eliquis after Shiley placement. H/o Diastolic HF: Last ECHO shows Diastolic HF. Will check repeat ECHO. Check ProBNP Pt euvoluemic at present. Depression: Lethargic right now. Will hold off on anti psych meds for now as CrCl worse right now and can accentuate the effect. Will plan to start once mentation improves. TSH elevated but free T3 and T4 within normal limits. Most likely due to critical illness at present. Lovenox for DVT ppx will switch to home dose of Eliquis after Shiley placement. FC as per roxy who is bedside. NPO for now. Attestations Medical Necessity Statement*: Continued hospitalization for complete heart block secondary to hyperkalemia due to acute on chronic kidney disease Critical Care Time: Complete heart block, hyperkalemia, acute on chronic kidney disease Critical Care Time (min): 80 Coding Level of Care Code Acute Graduate Student Instructor for Chg Fwd Diagnoses Hyperkalemia E87.5 Complete heart block I44.2 Acute kidney injury superimposed on chronic kidney disease N17.9; N18.9 Diastolic heart failure I50.32 Heart failure chronicity: chronic Paroxysmal A-fib I48.0 Chronic anticoagulation Z79.01 Hypertension I10 Type 2 diabetes mellitus E11.9 Acute metabolic encephalopathy G93.41 High anion gap metabolic acidosis E87.2
[2019-07-31] MEDS: heparin 5,000 unit/mL INJ 1 mL 5000 UNIT HE (15:06)
[2019-07-31] MEDS: pantoprazole 40 mg SDV IVP (16:04)
[2019-07-31] MEDS: vancomycin 1,000 MG in sodium chloride 0.9% 250 ML 250 MG IV (17:03)
[2019-07-31 17:37] LABS: Anion Gap 12.3 (5-19); Blood Urea Nitrogen 54 mg/dL (8-23); Carbon Dioxide 29 mmol/L (22-29); Chloride 97 mmol/L (98-107); Glucose 160 mg/dL (74-106); Potassium 4.3 mmol/L (3.5-5.1); Sodium 134 mmol/L (136-145)
--- NOTE | 2019-07-31 18:22 | PC.NURSE ---
pt has to remain supine due to temporary pacemaker placement
--- NOTE | 2019-07-31 20:28 | USCV_ITS ---
Eleuteriokameron Vaibhav Age: 78 Gender: F : 1940 Exam Date: 07/31/2019 06:15 Ordering Phys: Niko Caceres MD Technologist: Perry Hess Exam Location: [facility] [place] Indication: HX CHF BP: 132 / 82 HR: 65 Rhythm: Sinus Technical Quality: Poor MEASUREMENTS (Male / Female) Normal Values 2D ECHO LV Diastolic Diameter PLAX 5.0 cm 4.2 - 5.9 / 3.9 - 5.3 cm LV Systolic Diameter PLAX 2.8 cm IVS Diastolic Thickness 1.2 cm 0.6 - 1.0 / 0.6 - 0.9 cm IVS Systolic Thickness 1.3 cm LVPW Diastolic Thickness 1.3 cm 0.6 - 1.0 / 0.6 - 0.9 cm LVPW Systolic Thickness 1.2 cm LVOT Diameter 2.0 cm LV Ejection Fraction 2D Teich 74.1 % LV Ejection Fraction MOD 2C 78.3 % LV Ejection Fraction 2C AL 78.8 % LA Diameter 4.5 cm LA Width 5.3 cm LA Height 7.2 cm RA Width 5.2 cm RA Height 6.8 cm Aorta at Sinotubular Diameter 2.6 cm M-MODE LV Diastolic Diameter MM 5.7 cm 4.2 - 5.9 / 3.9 - 5.3 cm LV Systolic Diameter MM 3.7 cm LV Ejection Fraction MM Teich 64.7 % IVS Diastolic Thickness MM 1.1 cm 0.6 - 1.0 / 0.6 - 0.9 cm IVS Systolic Thickness MM 1.6 cm LVPW Diastolic Thickness MM 1.4 cm 0.6 - 1.0 / 0.6 - 0.9 cm LVPW Systolic Thickness MM 2.1 cm RV Diastolic Diameter MM 1.0 cm Aortic Annulus Diameter 3.7 cm LA Ao Ratio MM 1.2 MV E Point Septal Separation 1.9 cm DOPPLER AV Peak Velocity 200.0 cm/s LVOT Peak Velocity 139.0 cm/s AV Area Cont Eq vti 2.0 cm squared AV Area Cont Eq pk 2.2 cm squared MV Area PHT 2.2 cm squared Mitral E to A Ratio 1.3 MV E' Velocity 220.0 cm/s Mitral E to MV E' Ratio 27.9 Mitral E to LV E' Lateral Ratio 25.3 Mitral E to LV E' Septal Ratio 31.0 TR Peak Velocity 385.0 cm/s TR Peak Gradient 59.2 mmHg TV Peak E Velocity 117.0 cm/s Right Atrial Pressure 3.0 mmHg Pulmonary Artery Systolic Pressu 62.3 mmHg FINDINGS Left Ventricle Normal left ventricular size and systolic function, EF 71 %. No regional wall motion abnormalities. Right Ventricle Normal right ventricular size and systolic function. Right Atrium Moderately increased right atrial size. Left Atrium Moderately increased left atrial size. Mitral Valve Thickened mitral valve with a moderate to heavy mitral annular calcification.moderate mitral valve regurgitation. Aortic Valve Thickened aortic valve. Tricuspid Valve Moderate tricuspid valve regurgitation. Moderate pulmonary hypertension with estimated pulmonary artery peak systolic pressure 62 mmHg Pulmonic Valve Could not be visualized well Pericardium No pericardial effusion. Aorta Normal aortic annulus size. CONCLUSIONS Normal left ventricular size and systolic function, EF 71 %. No regional wall motion abnormalities. Thickened mitral valve with a moderate to heavy mitral annular calcification. Moderate mitral and tricuspid regurgitation Thickened aortic valve. Moderate pulmonary hypertension with an estimated pulmonary artery peak systolic pressure 62 mmHg. Compared to the previous study from 11/21/2018, there may not be a significant change Dr Vanessa Gregorio MD FACC (Electronically Signed) Final Date: 31 July 2019 23:51 S
--- NOTE | 2019-07-31 20:28 | US_ITS ---
WS: [id number] ULTRASOUND RENAL TECHNIQUE: Ultrasound examination of both kidneys. CLINICAL INFORMATION: MATILDA on CKD COMPARISON: November 01, 2018 FINDINGS: Bilateral simple cysts largest in the left measuring 2.9 x 3.1 cm RIGHT: Right kidney is normal in size and appearance. Echogenicity: Normal. Hydronephrosis: None. Perinephric fluid: None. Right kidney measures: 11.7 cm x 5.1 cm x 5.5 cm. LEFT: Left kidney is normal in size and appearance. Echogenicity: Normal. Hydronephrosis: None. Perinephric fluid: None. Left kidney measures: 9.6 cm x 5.1 cm x 4.8 cm. Normal visualized aorta. Ferrari catheter. US/US renal BI* [id number] IMPRESSION: 1. No hydronephrosis in either kidney. 2. Incidental simple cysts bilaterally.
[2019-07-31] MEDS: sodium chloride 0.9% 1,000 ML 200 ML IV ×2 (20:30→23:07)
[2019-07-31] MEDS: enoxaparin 100 mg/mL Syringe SUBCUT (20:53)
[2019-07-31 21:23] LABS: Glucose Point of Care 164 mg/dL (70-110)
[2019-08-01] VITALS (21 sets, daily range): BP systolic 94–168; BP diastolic 36–80; PULSE 81–110; RESP 12–28; TEMP 36.6–37.4; O2SAT 57–98
[2019-08-01 02:39] LABS: Glucose Point of Care 123 mg/dL (70-110)
[2019-08-01] MEDS: ipratropium-albuterol 3 mL Neb INHALATION ×4 (03:06→20:10)
[2019-08-01 05:39] LABS: Basophils % 0.3 %; Eosinophils # 0.1 10^3/uL (0.0-0.8); Eosinophils % 1.8 %; Hematocrit 28.2 % (37.0-47.0); Hemoglobin 8.6 g/dL (11.5-15.3); Lymphocytes % 14.4 %; Mean Corpuscular HGB Conc 30.5 g/dL (30.0-36.0); Mean Corpuscular Hemoglobin 31.2 pg (28.0-34.0); Mean Corpuscular Volume 102.2 fL (81-99); Mean Platelet Volume 11.6 fL (7.4-10.4); Monocytes # 0.8 10^3/uL (0.2-0.9); Monocytes % 11.6 %; Neutrophils # 5.1 10^3/uL (1.8-7.7); Neutrophils % 71.2 %; Nucleated Red Blood Cells % 0 %; Platelet Count 216 10^3/cmm (130-400); Red Blood Count 2.76 10^6/uL (4.1-5.3); Red Cell Distribution Width 13.5 % (12.1-15.1); White Blood Count 7.1 10^3/uL (4.0-10.0)
[2019-08-01 05:57] LABS: Alanine Aminotransferase 10 U/L (0-33); Albumin Level 3.1 g/dL (3.5-5.2); Alkaline Phosphatase 136 IU/L (35-105); Anion Gap 14.1 (5-19); Aspartate Amino Transferase 23 U/L (0-32); Blood Urea Nitrogen 47 mg/dL (8-23); Calcium 8.8 mg/Dl (8.8-10.2); Carbon Dioxide 28 mmol/L (22-29); Chloride 102 mmol/L (98-107); Globulin 2.8 g/dL (1.3-4.6); Glucose 136 mg/dL (74-106); Magnesium 2.3 mg/dL (1.7-2.3); Phosphorus 4.2 mg/dL (2.5-4.5); Potassium 4.1 mmol/L (3.5-5.1); Sodium 140 mmol/L (136-145); Total Bilirubin 0.2 mg/dL (0.15-1.2); Total Protein 5.9 g/dL (6.6-8.7)
[2019-08-01] MEDS: sodium chloride 0.9% 1,000 ML 200 ML IV ×3 (06:03→17:58)
[2019-08-01 07:42] LABS: Glucose Point of Care 149 mg/dL (70-110)
--- NOTE | 2019-08-01 07:45 | PM.PN ---
Subjective Subjective: Interval history: feels better today. no sob. good uop. Medications: Reviewed: Yes Medication Review Details: Current Medications Albuterol Sulfate (Albuterol) 2.5 mg INHALATION Q4H.RESPIRATORY PRN PRN Reason: shortness Albuterol/Ipratropium (Duoneb) 3 ml INHALATION Q6H.RESPIRATORY GONZALO Last Admin: 08/01/19 03:06 Dose: 3 ml Documented by: Aspirin (Aspirin Ec) 81 mg PO DAILY [facility] Cyanocobalamin (Vitamin B-12) 1,000 mcg IM UNK PRN PRN Reason: MONTHLY SHOT Dextrose (D50w) 25 ml IVP ONCE PRN; Protocol PRN Reason: hypoglycemia protocol Dextrose (D50w) 50 ml IVP PRN PRN; Protocol PRN Reason: hypoglycemia protocol Enoxaparin Sodium (Lovenox) 100 mg 1 mg/kg (100 mg) SUBCUT Q24H [facility] Last Admin: 07/31/19 20:53 Dose: 100 mg Documented by: Glucagon (Glucagen) 1 mg IM ONCE PRN; Protocol PRN Reason: Adult Acute Hypoglycemia Prot. Dextrose (D5w) 500 mls @ 100 mls/hr IV ONCE PRN; Protocol PRN Reason: Adult Acute Hypoglycemia Prot Imipenem/Cilastatin Sodium 250 (mg/ Sodium Chloride) 100 mls @ 200 mls/hr IV Q12H GONZALO; Protocol Last Infusion: 07/31/19 21:25 Dose: Infused Documented by: Sodium Chloride (Sodium Chloride 0.9%) 1,000 mls @ 200 mls/hr IV .Q5H GONZALO Last Admin: 08/01/19 06:03 Dose: 200 mls/hr Documented by: Vancomycin HCl 1,000 mg/ (Sodium Chloride) 250 mls @ 250 mls/hr IV Q48H GONZALO; Protocol Last Admin: 07/31/19 18:33 Dose: Not Given Documented by: Insulin Aspart (Novolog) 0 unit SUBCUT Q6H GONZALO; Protocol Last Admin: 08/01/19 07:29 Dose: 4 unit Documented by: Nitroglycerin (Nitrostat) 0.4 mg SUBLINGUAL Q5MIN PRN PRN Reason: Angina Ondansetron HCl (Zofran) 4 mg IVP Q8H PRN PRN Reason: vomiting, or N/V if npo Pantoprazole Sodium (Protonix) 40 mg IVP DAILY [facility] Last Admin: 07/31/19 16:04 Dose: 40 mg Documented by: Fluticasone/Salmeterol (Advair Diskus 250-50) 1 puff INHALATION BID.RESPIRATORY GONZALO Last Admin: 07/31/19 21:33 Dose: 1 mcg Documented by: Vitals/I&O/Wt Last Vital Signs Temp 97.8 F 08/01/19 06:00 Pulse 88 08/01/19 06:00 Resp 18 08/01/19 06:00 BP 122/36 08/01/19 06:00 Pulse Ox 98 08/01/19 06:00 07/31/19 08/01/19 08/01/19 22:59 06:59 14:59 Intake Total 1073.257 / 2634.004 1999 / 4634.004 Output Total 850 / 850 1700 / 2550 Balance 223.257 / 1784.004 300 / 2084.004 Weight last 48 hrs Weight 102.92 kg Weight 102.2 kg Physical Exam Narrative: EXAM NARRATIVE: obese lady comfortable in bed vss heent- nc/at, eomi, anicteric neck no jvp lungs cta b/l heart -rrr, +KEATON abd soft, nt, nd ext- minimal edema left femoral shiley catheter neuro- a,a, o x 2, more awake and appropriate pulses + Urinary Catheter Management^: Ferrari: Cath Placed During This Visit: no Data : 08/01/19 04:40 08/01/19 04:40 Micro: Microbiology 07/31/19 10:05 MRSA Culture - Final Nose 07/31/19 12:50 Blood Culture - Preliminary Blood SPECIMEN COLLECTED 07/31/19 12:40 Blood Culture - Preliminary Blood SPECIMEN COLLECTED A&P Additional A&P Information 1. MATILDA- likely from meds- bumex and arb. likely atn -normal renal us s/p HD yesterday -now w/ good uop, electrolytes and cr are improving- hold HD today and monitor renal recovery 2. hypothyroidism- tsh 9-adjust levothyroxine as per medicine 3. resp acidosis- bipap per hospitalist 4. bradycardia- likely from cardiac disease and hyperkalemia- s/p pacemaker yesterday and HD. now in NSR 5. miitral regurg- diurese as per cardiology 6. dm care 7. anemia - high tsat i discussed the case w/ pts rn appreciate Dr. Gregorio of cardiology Attestations Medical Necessity Statement*: matilda, bradycardia Time Spent in Patient Care: 16 - 35 minutes Coding Level of Care Code Acute Commercial Loan Coordinator for Patrizia Corral
--- NOTE | 2019-08-01 07:58 | PM.PN ---
Subjective Subjective: Interval history: In last 24 hours patient underwent Shiley placement in left femoral, 1 dialysis session which she was 1 L negative. She also underwent replacement of PPI and under fluoroscopy. Her hemodynamics are a lot better, currently she is off dopamine with heart rate in 80s not reading pacing since dialysis sitting in bed conscious alert oriented denies of having any nausea, vomiting, abdominal pain, dizziness, headache. Medications: Reviewed: Yes Vitals/I&O/Wt Last Vital Signs Temp 97.8 F 08/01/19 06:00 Pulse 88 08/01/19 06:00 Resp 18 08/01/19 06:00 BP 122/36 08/01/19 06:00 Pulse Ox 98 08/01/19 06:00 07/31/19 08/01/19 08/01/19 22:59 06:59 14:59 Intake Total 1073.257 / 2634.004 2000 / 4634.004 Output Total 850 / 850 1700 / 2550 Balance 223.257 / 1784.004 300 / 2084.004 Weight last 48 hrs Weight 102.92 kg Weight 102.2 kg Physical Exam Narrative: EXAM NARRATIVE: General: No acute distress, awake, AO x3 HEENT: PERRLA, pupils bilaterally equal and reactive Chest: Normal vesicular breath sounds, no added sounds, equal good air entry bilaterally CVS: S1-S2 regular, bradycardia,, pansystolic murmur in mitral area 3/6, no gallops, no rubs Abdomen: Soft, nontender, no organomegaly, bowel sounds present Neuro: No focal deficits, no facial deformity, AO x3, power 3 /5 in all limbs Extremities: Replacement left femoral, temporary pacemaker in right femoral Urinary Catheter Management^: Ferrari: Cath Placed During This Visit: no Data : 08/01/19 04:40 08/01/19 04:40 Micro: Microbiology 07/31/19 10:05 MRSA Culture - Final Nose 07/31/19 12:50 Blood Culture - Preliminary Blood SPECIMEN COLLECTED 07/31/19 12:40 Blood Culture - Preliminary Blood SPECIMEN COLLECTED A&P Assessment and plan (1) Hyperkalemia: Status: Acute Code(s): E87.5 - Hyperkalemia (2) Complete heart block: Status: Acute Code(s): I44.2 - Atrioventricular block, complete (3) Acute kidney injury superimposed on chronic kidney disease: Status: Acute Code(s): N17.9 - Acute kidney failure, unspecified; N18.9 - Chronic kidney disease, unspecified (4) Diastolic heart failure: Status: Acute Qualifiers: Heart failure chronicity: chronic Qualified Code(s): I50.32 - Chronic diastolic (congestive) heart failure Code(s): I50.30 - Unspecified diastolic (congestive) heart failure (5) Paroxysmal A-fib: Status: Acute Code(s): I48.0 - Paroxysmal atrial fibrillation (6) Chronic anticoagulation: Status: Acute Code(s): 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 We will hold off nephrotoxic drugs. Medical reconciliation done. Will discuss with nephro regarding further dialysis. Most likely can hold off Improving. Will check BMP at 4 PM. Urine output improved. IVF at 200 for now given improved output. Plan to keep Intake=Output Strict intake and output charting. Acute metabolic encephalopathy: Most likely from complete heart block, uremia, multiple psych medications which were being continued while patient was having acute on chronic renal failure. RESOLVED. Acute hypoxic failure: Most likely due to drowsiness from uremia along with complete heart block. Resolved. O2 supplementation keeping SPO2 > 92%. Given improved status in mentation will advance diet to GI soft. Fall precautions Aspiration precautions Complete heart block: Secondary to hyperkalemia:Resolved Most likely due to acute on chronic kidney disease, home dose of Cozaar, Bumex, potassium supplementation. We will continue to hold off on Cozaar, Bumex, potassium supplementation for now. Hold off on home dose of metoprolol. In NSR at 80s right now. Will discuss with Dr. Gregorio about removal of TPI given improvement and oozing from sheath site. Hypertension: Blood pressure to be monitored for now. We will hold off on home dose of Cozaar and Lopressor given hyperkalemia and bradycardia. Given bradycardia patient would most likely need blood pressures over 150 systolic for proper cardiac output. Later if needed can add patient amlodipine but will hold off for now. Keep MAP >65mmhg. Dopa stopped last night. Type 2 diabetes mellitus: We will check HbA1c tomorrow morning. Moderate insulin sliding scale AC and HS. History of paroxysmal A. fib/history of pulmonary embolism: NSR right now. We will start on eliquis 2.5 mg BID from evening given mild oozing right now. H/o Diastolic HF: Last ECHO shows Diastolic HF. Repeat ECHO aprreciated. Pt euvoluemic at present. Depression: Lethargic right now. Will hold off on anti psych meds for now as CrCl worse right now and can accentuate the effect. Will plan to start once mentation improves. TSH elevated but free T3 and T4 within normal limits. Most likely due to critical illness at present. Lovenox for DVT ppx will switch to home dose of Eliquis after Shiley placement. FC as per roxy who is bedside. GI soft today. Attestations Medical Necessity Statement*: ICU care of CHB, resolving Acute on CKD Critical Care Time: Hyperkalemia, Acute on CKD, CHB Critical Care Time (min): 80 Coding Level of Care Code Acute Blocking Machine Operator for Chg Fwd Diagnoses Hyperkalemia E87.5 Complete heart block I44.2 Acute kidney injury superimposed on chronic kidney disease N17.9; N18.9 Diastolic heart failure I50.32 Heart failure chronicity: chronic Paroxysmal A-fib I48.0 Chronic anticoagulation Z79.01 Hypertension I10 Type 2 diabetes mellitus E11.9
--- NOTE | 2019-08-01 08:33 | CT_ITS ---
WS: [id number] CT ABDOMEN AND PELVIS NONCONTRAST HISTORY: Rule out pyelonephritis. TECHNIQUE: Imaging performed through the abdomen and pelvis. Coronal and sagittal reformats are submi tted. All CT scans at [facility] use at least one of these dose optimization techniques: automated exposure control; mA and/or kV adjustment per patient size (includes targeted exams where d ose is matched to clinical indication); or iterative reconstruction. DLP: 1179.16 mGy.cm COMPARISON: Renal ultrasound 07/31/2019 Lower thorax: New small bilateral pleural effusions and compressive atelectasis at the lung bases. He art is moderately enlarged. Small hiatal hernia. Liver: Decreased attenuation. No discrete masses are identified. Mild biliary dilatation is suspected . May be physiologic on the basis of cholecystectomy. Gallbladder: Cholecystectomy. Pancreas: Fatty replacement of the pancreas. Spleen: Normal size spleen with granulomata. Splenic artery is heavily calcified. Adrenal glands: Normal. Right kidney: Mild cortical thinning and mild perinephric stranding. More significant stranding aroun d the lower pole. Lower pole 12 mm hypodensity is probably a cyst. No renal obstruction. Left kidney: Mild cortical thinning and atrophy. Simple cyst upper pole is exophytic measuring 2.8 cm . Hyperdense nodule in the upper pole renal cortex measures 1.5 cm. No renal obstruction. Moderate atherosclerosis abdominal aorta. Heavy calcified plaque at the origin of the celiac axis and SMA and renal arteries. No free fluid, intraperitoneal air or significant lymphadenopathy. GI tract: No obstruction or significant mucosal thickening. Abdominal wall: Small foci of air in the RIGHT lateral abdominal wall. Probably from prior injection site. Pelvis: Ferrari catheter is present in the urinary bladder. Uterus is midline and contains several calc ifications which are probably degenerating fibroids. No adnexal mass. Also noted are venous catheters bilaterally entering via the femoral veins. The RIGHT catheter extends into the IVC and RIGHT atrium . The entire course and its superior extent is not imaged. The LEFT venous catheter terminates in the iliac vein. Osseous structures: Degenerative changes in the lumbar spine. No osteoblastic or osteolytic bone dise ase. CT/CT abdomen pelvis wo con [id number] IMPRESSION: 1. Mild renal atrophy and perinephric stranding. Perinephric stranding could b e chronic or related to pyelonephritis. 2. No renal obstruction. 3. Prior cholecystectomy. 4. Extensive atherosclerotic plaque within the aorta and mesenteric arteries. 5. New small bilateral pleural effusions and atelectasis at the bases. 6. Bilateral femoral venous catheters. The RIGHT venous catheter extends to th e RIGHT atrium but termination site is not visualized. 7. No ascites or adenopathy.
[2019-08-01] MEDS: aspirin 81 mg EC Tablet PO (09:17)
[2019-08-01] MEDS: pantoprazole 40 mg SDV IVP (09:17)
[2019-08-01] MEDS: levothyroxine 100 mcg Tablet PO (09:17)
[2019-08-01 11:55] LABS: Glucose Point of Care 270 mg/dL (70-110)
--- NOTE | 2019-08-01 13:08 | PC.NURSE ---
Dr. Gregorio here; pulled temporary pacer. Also pulled venous sheath and held pressure for 15min. Pt tolerated well.
--- NOTE | 2019-08-01 15:15 | PC.RESP ---
Patient given Pulmonary Rehab information.
[2019-08-01] MEDS: apixaban 5 mg Tablet 2.5 MG PO (16:54)
[2019-08-01 17:20] LABS: Glucose Point of Care 123 mg/dL (70-110)
[2019-08-01 18:58] LABS: Anion Gap 14.6 (5-19); Blood Urea Nitrogen 37 mg/dL (8-23); Calcium 8.5 mg/Dl (8.8-10.2); Carbon Dioxide 27 mmol/L (22-29); Chloride 105 mmol/L (98-107); Glucose 137 mg/dL (74-106); Osmolality Calculated 296 mOsm/kg (285-295); Potassium 3.6 mmol/L (3.5-5.1); Sodium 143 mmol/L (136-145)
--- NOTE | 2019-08-01 19:09 | PM.PN ---
Subjective Subjective: Interval history: Patient is feeling much better. She had the hemodialysis yesterday. Her BUN/creatinine is coming down. She also appears to be in sinus rhythm now. Did not require any pacing since 2:00 yesterday afternoon. Medications: Medication Review Details: Current Medications Albuterol Sulfate (Albuterol) 2.5 mg INHALATION Q4H.RESPIRATORY PRN PRN Reason: shortness Albuterol/Ipratropium (Duoneb) 3 ml INHALATION Q6H.RESPIRATORY GON[facility]ALO Last Admin: 08/01/19 14:04 Dose: 3 ml Documented by: Apixaban (Eliquis) 2.5 mg PO BID G[facility]ALO Last Admin: 08/01/19 16:54 Dose: 2.5 mg Documented by: Aspirin (Aspirin Ec) 81 mg PO DAILY [facility] Last Admin: 08/01/19 09:17 Dose: 81 mg Documented by: Atorvastatin Calcium (Lipitor) 20 mg PO BEDTIME GONZALO Carbidopa/Levodopa (Sinemet) 1 each PO BID [facility] Last Admin: 08/01/19 17:05 Dose: 1 each Documented by: Cyanocobalamin (Vitamin B-12) 1,000 mcg IM UNK PRN PRN Reason: MONTHLY SHOT Dextrose (D50w) 25 ml IVP ONCE PRN; Protocol PRN Reason: hypoglycemia protocol Dextrose (D50w) 50 ml IVP PRN PRN; Protocol PRN Reason: hypoglycemia protocol Glucagon (Glucagen) 1 mg IM ONCE PRN; Protocol PRN Reason: Adult Acute Hypoglycemia Prot. Dextrose (D5w) 500 mls @ 100 mls/hr IV ONCE PRN; Protocol PRN Reason: Adult Acute Hypoglycemia Prot Imipenem/Cilastatin Sodium 250 (mg/ Sodium Chloride) 100 mls @ 200 mls/hr IV Q12H GONZALO; Protocol Last Infusion: 08/01/19 09:47 Dose: Infused Documented by: Sodium Chloride (Sodium Chloride 0.9%) 1,000 mls @ 200 mls/hr IV .Q5H [facility] Last Admin: 08/01/19 17:58 Dose: 200 mls/hr Documented by: Vancomycin HCl 1,000 mg/ (Sodium Chloride) 250 mls @ 250 mls/hr IV Q48H GON[facility]ALO; Protocol Last Admin: 07/31/19 18:33 Dose: Not Given Documented by: Dextrose (D5w) 500 mls @ 100 mls/hr IV ONCE PRN; Protocol PRN Reason: Adult Acute Hypoglycemia Prot Insulin Aspart (Novolog) 0 unit SUBCUT AC GONZALO; Protocol Last Admin: 08/01/19 17:05 Dose: Not Given Documented by: Insulin Aspart (Novolog) 0 unit SUBCUT BEDTIME GONZALO; Protocol Levothyroxine Sodium (Synthroid) 100 mcg PO DAILY [facility] Last Admin: 08/01/19 09:17 Dose: 100 mcg Documented by: Nitroglycerin (Nitrostat) 0.4 mg SUBLINGUAL Q5MIN PRN PRN Reason: Angina Ondansetron HCl (Zofran) 4 mg IVP Q8H PRN PRN Reason: vomiting, or N/V if npo Pantoprazole Sodium (Protonix) 40 mg IVP DAILY [facility] Last Admin: 08/01/19 09:17 Dose: 40 mg Documented by: Fluticasone/Salmeterol (Advair Diskus 250-50) 1 puff INHALATION BID.RESPIRATORY [facility] Last Admin: 08/01/19 08:10 Dose: 250 mcg Documented by: Vitals/I&O/Wt Last Vital Signs Temp 98.0 F 08/01/19 10:00 Pulse 103 H 08/01/19 18:00 Resp 23 H 08/01/19 18:00 BP 156/80 08/01/19 18:00 Pulse Ox 94 08/01/19 18:00 08/01/19 08/01/19 08/01/19 06:59 14:59 22:59 Intake Total 1999 / 4634.004 1506.666 / 0306.894 7752 / 2626.666 Output Total 1700 / 2550 1999 Balance 300 / 2084.004 1506.666 / 1506.666 -880 / 626.666 Weight last 48 hrs Weight 226 lb 8 oz Weight 226 lb 14.4 oz Weight 225 lb 5 oz Physical Exam Narrative: EXAM NARRATIVE: GENERAL: The patient is alert and oriented times three. Not in any acute distress. HEENT: moderate pallor, no icterus or lymphadenopathy. The pupils are equal. Oral cavity: There are no mucous membrane lesions. NECK: Trachea appears to be central. No masses noted. No JVD or thyromegaly appreciated. No carotid bruit. RESPIRATORY: Chest is symmetrical. No intercostals muscle retraction or any accessory muscle activation. There is no chest wall tenderness. Breath sounds are heard bilaterally. No rales or rhonchi heard. No evidence of any consolidation. BREASTS: Deferred. HEART: Heart sounds are normal with no S3 or S4. No significant murmurs. ABDOMEN: No vessel pulsations or distention. No tenderness. No organomegaly appreciated. No abdominal bruit. Bowel sounds are normally heard. : Deferred. RECTAL: Deferred. LYMPHATIC: No lymphadenopathy noted in the neck or groin. EXTREMITIES: 1+ edema both lower extremities no cyanosis. Has minimal oozing around the venous sheath in the right groin. MUSCULOSKELETAL: No acute joint deformities or swelling SKIN: There are no significant rashes. NEUROPSYCHIATRIC: The patient is alert and oriented x3. Appears to be in a good mood. The higher functions are grossly within normal limits. No tremors or rigidity noted. Urinary Catheter Management^: Ferrari: Cath Placed During This Visit: no Data : 08/01/19 04:40 08/01/19 16:05 Other Labs: Abnormal lab results 08/01/19 08/01/19 08/01/19 Range/Units 04:40 04:40 16:05 RBC 2.76 L (4.1-5.3) 10^6/uL Hgb 8.6 L (11.5-15.3) g/dL Hct 28.2 L (37.0-47.0) % MCV 102.2 H (81-99) fL MPV 11.6 H (7.4-10.4) fL BUN 47 H 37 H (8-23) mg/dL Creatinine 2.3 H 1.5 H (0.5-0.9) mg/dL Glucose 136 H 137 H (74-106) mg/dL Calculated Osmolality 296 H (285-295) mOsm/kg Calcium 8.5 L (8.8-10.2) mg/Dl Alkaline Phosphatase 136 H (35-105) IU/L Total Protein 5.9 L (6.6-8.7) g/dL Albumin 3.1 L (3.5-5.2) g/dL Micro: Microbiology 07/31/19 12:50 Blood Culture - Preliminary Blood NEGATIVE TO DATE 07/31/19 12:40 Blood Culture - Preliminary Blood NEGATIVE TO DATE 07/31/19 10:05 MRSA Culture - Final Nose Echo: My impression: Echocardiogram from 08/01/2019 normal left ventricular size and systolic function, EF 71 %. No regional wall motion abnormalities. Thickened mitral valve with a moderate to heavy mitral annular calcification. Moderate mitral and tricuspid regurgitation Thickened aortic valve. Moderate pulmonary hypertension with an estimated pulmonary artery peak systolic pressure 62 mmHg. Compared to the previous study from 11/21/2018, there may not be a significant change A&P Assessment and plan (1) Symptomatic bradycardia: Patient is status post temporary pacemaker insertion. Currently she is seems to be in a sinus rhythm, not requiring the pacing. Her kidney function has improved since her dialysis. Hyperkalemia also has improved. Most likely the hyperkalemia and renal failure might account to be due to the bradycardia. At this point, it may be appropriate to discontinue the temporary pacing. Status: Acute Code(s): R00.1 - Bradycardia, unspecified (2) Acute kidney injury superimposed on chronic kidney disease: Patient had the hemodialysis. The electrolytes, BUN and creatinine all are improving. Management as per the nephrology service Status: Acute Code(s): N17.9 - Acute kidney failure, unspecified; N18.9 - Chronic kidney disease, unspecified (3) Diastolic heart failure: Patient currently is compensated. The acute renal failure and the atrial fibrillation are contributing factors for the diastolic heart failure. Echocardiogram was reviewed. The findings are as mentioned above. Status: Acute Qualifiers: Heart failure chronicity: chronic Qualified Code(s): I50.32 - Chronic diastolic (congestive) heart failure Code(s): I50.30 - Unspecified diastolic (congestive) heart failure (4) Intermittent atrial fibrillation: Patient is on long-term oral anticoagulation. It would be appropriate to restart on the Eliquis, if it is okay with the nephrology and primary attending. Status: Acute Code(s): I48.0 - Paroxysmal atrial fibrillation (5) Acute metabolic encephalopathy: Patient has significant improvement. Continue on the current measures. Status: Acute Code(s): G93.41 - Metabolic encephalopathy Additional A&P Information I may go ahead and discontinue the temporary pacing wire. The femoral sheath also may be discontinued. Attestations Medical Necessity Statement*: Patient requires continued hospital stay for close monitoring and further management Coding Level of Care Code Acute Site Safety Coordinator for [facility] Fw History Detailed Exam Expanded Problem Focused Diagnoses Symptomatic bradycardia R00.1 Acute kidney injury superimposed on chronic kidney disease N17.9; N18.9 Diastolic heart failure I50.32 Heart failure chronicity: chronic Intermittent atrial fibrillation I48.0 Acute metabolic encephalopathy G93.41
[2019-08-01 21:33] LABS: Glucose Point of Care 223 mg/dL (70-110)
[2019-08-01] MEDS: atorvastatin 40 mg Tablet 20 MG PO (21:36)
--- NOTE | 2019-08-01 22:16 | PC.NURSE ---
pt noted to be sob c audible wheezing. hr 110 SR bp 181/67 . pt reports increasing sob. requested breathing tx, which was reported to be given at 1999 . RT at bedside . pt placed on bipap for work of breathing . will report to primary nurse. john richter.
--- NOTE | 2019-08-01 22:24 | XRR_ITS ---
PROCEDURE INFORMATION: Exam: XR Chest, 1 View Exam date and time: 08/01/2019 10:25 PM Age: 78 years old Clinical indication: Other: Dr checking for fluid overload; Prior surgery; Additional info: Dr ordered TECHNIQUE: Imaging protocol: XR of the chest Views: 1 view. COMPARISON: CR XR chest 1V portable [id number] 07/30/2019 9:45 PM FINDINGS: Lungs: Pulmonary vasculature is congested. Interstitial thickening relating to edema or congestion is noted. Central venous catheter is unchanged. Pleural space: Unremarkable. No pleural effusion. No pneumothorax. Heart/Mediastinum: Stable cardiomegaly. Bones/joints: Unremarkable. Other findings: Transcutaneous pacer patch remains in place. XR/XR chest 1V portable [id number] IMPRESSION: Findings suggesting congestive heart failure or volume loading.
[2019-08-01] MEDS: FUROsemide 10 mg/mL SDV 2mL 20 MG IVP (23:04)
[2019-08-02] VITALS (21 sets, daily range): BP systolic 111–200; BP diastolic 52–87; PULSE 82–126; RESP 15–35; TEMP 36.8–37.5; O2SAT 90–99
[2019-08-02] MEDS: ipratropium-albuterol 3 mL Neb INHALATION ×4 (02:12→20:43)
--- NOTE | 2019-08-02 03:36 | PC.NURSE ---
Call to Dr Matthew; Patients BP originally 171/60. After a few minutes I retook the pressure and it was 200/75; patient is asymptomatic with the blood pressure being so high. Patient has no PRN meds for hypertension. Dr Matthew states that he believes the blood pressure will come down as the patient continues to diuresis. No new orders received; I will continue to monitor the patient.
[2019-08-02 03:54] LABS: Basophils % 0.1 %; Eosinophils # 0.1 10^3/uL (0.0-0.8); Eosinophils % 0.7 %; Hematocrit 26.6 % (37.0-47.0); Hemoglobin 8.2 g/dL (11.5-15.3); Lymphocytes # 0.8 10^3/uL (0.8-4.8); Lymphocytes % 9.7 %; Mean Corpuscular HGB Conc 30.8 g/dL (30.0-36.0); Mean Corpuscular Hemoglobin 31.3 pg (28.0-34.0); Mean Corpuscular Volume 101.5 fL (81-99); Monocytes % 11.5 %; Neutrophils # 6.5 10^3/uL (1.8-7.7); Neutrophils % 77.4 %; Nucleated Red Blood Cells % 0 %; Platelet Count 209 10^3/cmm (130-400); Red Blood Count 2.62 10^6/uL (4.1-5.3); Red Cell Distribution Width 13.6 % (12.1-15.1); White Blood Count 8.4 10^3/uL (4.0-10.0)
[2019-08-02 04:15] LABS: Alanine Aminotransferase 10 U/L (0-33); Albumin Level 3.1 g/dL (3.5-5.2); Alkaline Phosphatase 121 IU/L (35-105); Anion Gap 14.2 (5-19); Aspartate Amino Transferase 20 U/L (0-32); Blood Urea Nitrogen 33 mg/dL (8-23); Calcium 8.7 mg/Dl (8.8-10.2); Carbon Dioxide 29 mmol/L (22-29); Chloride 104 mmol/L (98-107); Globulin 2.9 g/dL (1.3-4.6); Glucose 245 mg/dL (74-106); Magnesium 1.8 mg/dL (1.7-2.3); Phosphorus 2.7 mg/dL (2.5-4.5); Potassium 3.2 mmol/L (3.5-5.1); Sodium 144 mmol/L (136-145); Total Bilirubin 0.2 mg/dL (0.15-1.2)
--- NOTE | 2019-08-02 06:54 | PC.PHAR ---
Vancomycin dosing changed based on pt improving renal function (no longer on dialysis), new dose is now 1250mg Q24h Patient: Floor: Age: 78 yo Serum creatinine: 1.4 mg/dL Height: 65.7 Inches Weight (kg): 102 IBW (kg): 58.61 Dosing wt(kg): 102 Estimated Creatinine clearance (ml/min): 30.1 CRCL method: Cockcroft and Gault using ibw(default). Drug selected: Vancomycin Loading dose (mg): Vd (liters): 71.4 (factor used: 0.7 L/kg) Renan (hr-1): 0.029 Half life (hrs): 23.90 CLvanco= 2.071 L/hr Recommended dose: 1250 mg Interval: 24 hrs Infusion time (hrs): 1 Predicted peak (mcg/mL): 34.4 Predicted trough (mcg/mL): 17.66 Total body weight is being used for vancomycin dosing. Recommendations: Give Vancomycin 1250 mg q 24 hrs with an expected Cpeak of 34.4 mcg/ml and an expected Ctrough of 17.66 mcg/ml Thank you for the consult, will continue to follow.
[2019-08-02 07:25] LABS: Glucose Point of Care 228 mg/dL (70-110)
[2019-08-02] MEDS: levothyroxine 100 mcg Tablet PO (09:04)
[2019-08-02] MEDS: pantoprazole 40 mg SDV IVP (09:04)
[2019-08-02] MEDS: aspirin 81 mg EC Tablet PO (09:04)
[2019-08-02] MEDS: apixaban 5 mg Tablet 2.5 MG PO ×2 (09:04→17:53)
--- NOTE | 2019-08-02 09:06 | PM.PN ---
Subjective Subjective: Interval history: Doing a lot better since dialysis day before. Overnight patient was in mild fluid overload so was given 20 mg of Lasix and put on BiPAP. On evaluation this morning patient is comfortably lying in bed without complaining of any nausea, vomiting, headache. Complains of mild shortness of breath but states is a lot better. Patient is AO x3. Patient does not have any ooze from the right groin where TPA was placed. Shiley is present in the left groin. Medications: Reviewed: Yes Vitals/I&O/Wt Last Vital Signs Temp 98.6 F 08/02/19 08:00 Pulse 94 08/02/19 08:27 Resp 16 08/02/19 08:23 BP 184/87 08/02/19 08:00 Pulse Ox 97 08/02/19 08:23 08/01/19 08/02/19 08/02/19 22:59 06:59 14:59 Intake Total 2220 / 3726.666 370 / 370 Output Total 1999 2450 / 4450 Balance 220 / 1726.666 -2450 / -723.334 370 / 370 Weight last 48 hrs Weight 106.594 kg Weight 102.739 kg Weight 102.92 kg Physical Exam Narrative: EXAM NARRATIVE: General: No acute distress, awake, AO x3 HEENT: PERRLA, pupils bilaterally equal and reactive Chest: Normal vesicular breath sounds, no added sounds, equal good air entry bilaterally CVS: S1-S2 regular, bradycardia,, pansystolic murmur in mitral area 3/6, no gallops, no rubs Abdomen: Soft, nontender, no organomegaly, bowel sounds present Neuro: No focal deficits, no facial deformity, AO x3, power 3 /5 in all limbs Extremities: Bilateral pulses equal and present. Shiley present in left groin. No wounds. Right groin wound stable without any use. Urinary Catheter Management^: Ferrari: Cath Placed During This Visit: no Data : 08/02/19 03:30 08/02/19 03:30 Micro: Microbiology 07/31/19 12:50 Blood Culture - Preliminary Blood NEGATIVE TO DATE 07/31/19 12:40 Blood Culture - Preliminary Blood NEGATIVE TO DATE A&P Assessment and plan (1) Acute kidney injury superimposed on chronic kidney disease: Status: Acute Code(s): N17.9 - Acute kidney failure, unspecified; N18.9 - Chronic kidney disease, unspecified (2) Diastolic heart failure: Status: Acute Qualifiers: Heart failure chronicity: chronic Qualified Code(s): I50.32 - Chronic diastolic (congestive) heart failure Code(s): I50.30 - Unspecified diastolic (congestive) heart failure (3) Complete heart block: Status: Acute Code(s): I44.2 - Atrioventricular block, complete (4) Hyperkalemia: Status: Acute Code(s): E87.5 - Hyperkalemia (5) Paroxysmal A-fib: Status: Acute Code(s): I48.0 - Paroxysmal atrial fibrillation (6) Chronic anticoagulation: Status: Acute Code(s): 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 Baseline creatinine of around 2.0-2.2. We will hold off nephrotoxic drugs. Medical reconciliation done. We will continue to hold off on Cozaar, Bumex, potassium supplementation for now. We will plan to remove Shiley catheter today. Will request surgical services for removal of Shiley. Patient would not need anymore dialysis as creatinine and potassium has been stable. Urine output improved. Discontinue IV fluids given mild diastolic heart failure. Strict intake and output charting. Nephrology recommendations appreciated. Acute metabolic encephalopathy: Resolved. Most likely from complete heart block, uremia, multiple psych medications which were being continued while patient was having acute on chronic renal failure. Continue with GI soft diet. Patient is tolerating it well. Fall precautions Aspiration precautions Diastolic heart failure: Patient is overall 3 L positive with around 715- today. We will give patient IV Lasix 20 mg stat and if the urine output improves and if blood pressure remains stable can give another 20 mg later in the day around 3 PM. Strict input taken output. O2 supplementation keeping SPO2 > 92%. Complete heart block: Secondary to hyperkalemia:Resolved Most likely due to acute on chronic kidney disease, home dose of Cozaar, Bumex, potassium supplementation. We will start patient on low-dose of metoprolol of 12.5 mg twice daily today. Will not go on higher dose given recent complete heart block requiring temporary pacemaker. Patient is in high risk of going into refractory tachycardia. We will also start on Lopressor 2.5 mg every 4 hours as needed for heart rate of more than 100 while systolic blood pressures more than 110 mmHg. Cardiology recommendations appreciated. Hypertension: Blood pressure to be monitored for now. We will hold off on home dose of Cozaar and given hyperkalemia. Later if needed can add patient amlodipine but will hold off for now. Keep MAP >65mmhg. Dopa stopped last night. Type 2 diabetes mellitus: We will check HbA1c tomorrow morning. Moderate insulin sliding scale AC and HS. History of paroxysmal A. fib/history of pulmonary embolism: NSR right now. We will start on eliquis 2.5 mg BID from evening given mild oozing right now. H/o Diastolic HF: Last ECHO shows Diastolic HF. Repeat ECHO aprreciated. Pt euvoluemic at present. Depression: Lethargic right now. Will hold off on anti psych meds for now as CrCl worse right now and can accentuate the effect. Will plan to start once mentation improves. TSH elevated but free T3 and T4 within normal limits. Most likely due to critical illness at present. Eliquis will also help for DVT prophylaxis. FC as per grandson who is bedside. GI soft today. Attestations Medical Necessity Statement*: Needs controlled hospitalization for resolving MATILDA, hyperkalemia, CHB, diastolic heart failure. Critical Care Time: MATILDA, hyperkalemia, CHB Diastolic heart failure Critical Care Time (min): 60 Coding Level of Care Code Acute Cloth Finishing Range Operator Chief for g Fwd Diagnoses Acute kidney injury superimposed on chronic kidney disease N17.9; N18.9 Diastolic heart failure I50.32 Heart failure chronicity: chronic Complete heart block I44.2 Hyperkalemia E87.5 Paroxysmal A-fib I48.0 Chronic anticoagulation Z79.01 Hypertension I10 Type 2 diabetes mellitus E11.9
--- NOTE | 2019-08-02 09:25 | PC.SOCIAL ---
IMM Update Pg 2 of IMM given and explained to patient who voiced understanding. Signed/dated/timed and placed in chart. Copy provided to patient.
--- NOTE | 2019-08-02 09:57 | PC.CHAP ---
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 operator visit [] Patient/Family/Request visit [] Outpatient visit [] Follow-up visit [] Physician referral [] Code/Alert [] Routine visit [] Staff referral [] Actively dying [x] Patient sleeping [] Family support [] [] Out of room [] Palliative care [] [] Receiving care in room [] Pre-surgical visit [] Trauma [] Long length of stay [] ICU visit [] Other: Relational/Emotional Strength [] Patient feels connected with others/family/visitors/staff [] Distress [] Loneliness/isolation [] Abandonment Spirituality of Patient [] Person of Alexa [] Attends Orthodox of their Alexa [] Believes in Prayer [] Reads Bible or Muslim materials [] There are Spiritual issues to be addressed Manager Loan Interventions [] Prayer [] Active listening [] Non-anxious presence [] Spiritual/emotional support [] Crisis/trauma care [] Spiritual counseling [] Bereavement support [] Provided bereavement packet [] Provided Bible/devotional materials [] Provided toy/stuffed animal, coloring book to patient or family member [x] Completed spiritual assessment [] Provided Communion [] Anointing/Victor [] Salvation [] Other: Impact on Illness or Injury [] Angry [] Fearful [] Anxious [] Often cries [] Exhaustion [] Unable to work [] Unable to attend mormonism [] Unable to walk/stand [] Unable to read [] Unable to drive [] Unable to eat/drink [] Unable to sleep [] Unable to be with family [] Other: Summary Time spent with patient
[2019-08-02 11:28] LABS: Glucose Point of Care 248 mg/dL (70-110)
[2019-08-02] MEDS: FUROsemide 10 mg/mL SDV 2mL 20 MG IVP ×2 (12:08→15:12)
[2019-08-02] MEDS: metoprolol tartrate 25 mg Tablet 12.5 MG PO ×2 (12:09→17:53)
--- NOTE | 2019-08-02 12:26 | ECG_ITS ---
Measurements Intervals [place] Rate: 129 P: AL: 0 QRS: 60 QRSD: 94 T: -37 QT: 226 QTc: 331 ATRIAL FIBRILLATION WITH RAPID VENTRICULAR RESPONSE NONSPECIFIC ST & T-WAVE ABNORMALITY INTERPRETATION BASED ON A DEFAULT AGE OF 40 YEARS Compared to ECG 07/30/2019 23:42:33 T-wave abnormality now present Junctional rhythm no longer present Electronically Signed On 08-02-2019 15:27:03 VERTICAL ROLL OPERATOR by Enzo Monaco M.D. [email or web address]
[2019-08-02] MEDS: metoprolol tartrate 1 mg/1 mL SDV 5 mL 5 MG IV (12:34)
[2019-08-02] MEDS: ondansetron 2 mg/ML SDV 2 mL 4 MG IVP (14:36)
--- NOTE | 2019-08-02 15:21 | PM.PN ---
Subjective Subjective: Interval history: feeling better Medications: Reviewed: Yes Vitals/I&O/Wt Last Vital Signs Temp 98.2 F 08/02/19 12:00 Pulse 87 08/02/19 15:20 Resp 21 H 08/02/19 15:19 BP 111/74 08/02/19 14:00 Pulse Ox 94 08/02/19 15:19 08/02/19 08/02/19 08/02/19 06:59 14:59 22:59 Intake Total 490 / 490 Output Total 2450 / 4450 Balance -2450 / -723.334 490 / 490 Weight last 48 hrs Weight 106.776 kg Weight 106.594 kg Weight 102.739 kg Physical Exam Urinary Catheter Management^: Ferrari: Cath Placed During This Visit: no Data : 08/02/19 03:30 08/02/19 03:30 Micro: Microbiology 07/31/19 12:50 Blood Culture - Preliminary Blood NEGATIVE TO DATE 07/31/19 12:40 Blood Culture - Preliminary Blood NEGATIVE TO DATE A&P Additional A&P Information 1. MATILDA- likely from meds- bumex and arb. likely atn -normal renal us -now w/ good uop, no need for further HD - remove dialysis catheter 2. Hypokalemia - repace PO check labs daily for now Attestations Medical Necessity Statement*: per primary service Coding Level of Care Code Acute Loan Representative for Patrizia Corral
[2019-08-02 17:48] LABS: Glucose Point of Care 234 mg/dL (70-110)
--- NOTE | 2019-08-02 18:04 | PM.EVENT ---
Event Note Event Note: Called by Dr. Caceres to have dialysis catheter removed, as the patient is no longer getting dialysis. The sutures were removed and the dialysis catheter was easily removed intact. A pressure dressing was applied by ICU nursing. Please call if I can be of further help. General Surgery Gucci Haddad MD
--- NOTE | 2019-08-02 18:57 | PC.NURSE ---
Dr. Harrisonk here earlier and discontinued dialysis catheter. Pt tolerated well.
--- NOTE | 2019-08-02 20:24 | PM.PN ---
Subjective Subjective: Interval history: Patient continues to improve. Has no specific symptoms at this time. Hasn't had a bradycardia since yesterday. Currently she is more tachycardic. Hasn't had any dialysis after the first one. BUN and creatinine continues to improve Medications: Medication Review Details: Current Medications Albuterol Sulfate (Albuterol) 2.5 mg INHALATION Q4H.RESPIRATORY PRN PRN Reason: shortness Albuterol/Ipratropium (Duoneb) 3 ml INHALATION Q6H.RESPIRATORY [facility] Last Admin: 08/01/19 14:04 Dose: 3 ml Documented by: Apixaban (Eliquis) 2.5 mg PO BID [facility] Last Admin: 08/01/19 16:54 Dose: 2.5 mg Documented by: Aspirin (Aspirin Ec) 81 mg PO DAILY [facility] Last Admin: 08/01/19 09:17 Dose: 81 mg Documented by: Atorvastatin Calcium (Lipitor) 20 mg PO BEDTIME [facility] Carbidopa/Levodopa (Sinemet) 1 each PO BID [facility] Last Admin: 08/01/19 17:05 Dose: 1 each Documented by: Cyanocobalamin (Vitamin B-12) 1,000 mcg IM UNK PRN PRN Reason: MONTHLY SHOT Dextrose (D50w) 25 ml IVP ONCE PRN; Protocol PRN Reason: hypoglycemia protocol Dextrose (D50w) 50 ml IVP PRN PRN; Protocol PRN Reason: hypoglycemia protocol Glucagon (Glucagen) 1 mg IM ONCE PRN; Protocol PRN Reason: Adult Acute Hypoglycemia Prot. Dextrose (D5w) 500 mls @ 100 mls/hr IV ONCE PRN; Protocol PRN Reason: Adult Acute Hypoglycemia Prot Imipenem/Cilastatin Sodium 250 (mg/ Sodium Chloride) 100 mls @ 200 mls/hr IV Q12H [facility]; Protocol Last Infusion: 08/01/19 09:47 Dose: Infused Documented by: Sodium Chloride (Sodium Chloride 0.9%) 1,000 mls @ 200 mls/hr IV .Q5H [facility] Last Admin: 08/01/19 17:58 Dose: 200 mls/hr Documented by: Vancomycin HCl 1,000 mg/ (Sodium Chloride) 250 mls @ 250 mls/hr IV Q48H [facility]; Protocol Last Admin: 07/31/19 18:33 Dose: Not Given Documented by: Dextrose (D5w) 500 mls @ 100 mls/hr IV ONCE PRN; Protocol PRN Reason: Adult Acute Hypoglycemia Prot Insulin Aspart (Novolog) 0 unit SUBCUT AC [facility]; Protocol Last Admin: 08/01/19 17:05 Dose: Not Given Documented by: Insulin Aspart (Novolog) 0 unit SUBCUT BEDTIME [facility]; Protocol Levothyroxine Sodium (Synthroid) 100 mcg PO DAILY [facility] Last Admin: 08/01/19 09:17 Dose: 100 mcg Documented by: Nitroglycerin (Nitrostat) 0.4 mg SUBLINGUAL Q5MIN PRN PRN Reason: Angina Ondansetron HCl (Zofran) 4 mg IVP Q8H PRN PRN Reason: vomiting, or N/V if npo Pantoprazole Sodium (Protonix) 40 mg IVP DAILY [facility] Last Admin: 08/01/19 09:17 Dose: 40 mg Documented by: Fluticasone/Salmeterol (Advair Diskus 250-50) 1 puff INHALATION BID.RESPIRATORY [facility] Last Admin: 08/01/19 08:10 Dose: 250 mcg Documented by: Vitals/I&O/Wt Last Vital Signs Temp 98.2 F 08/02/19 12:00 Pulse 96 08/02/19 18:00 Resp 22 H 08/02/19 18:00 BP 165/61 08/02/19 18:00 Pulse Ox 90 08/02/19 18:00 08/02/19 08/02/19 08/02/19 06:59 14:59 22:59 Intake Total 490 / 490 100 / 590 Output Total 2450 / 4450 2450 / 2450 Balance -2450 / -723.334 490 / 490 -2350 / -1860 Weight last 48 hrs Weight 235 lb 6.4 oz Weight 235 lb Weight 226 lb 8 oz Physical Exam Narrative: EXAM NARRATIVE: GENERAL: The patient is alert and oriented times three. Not in any acute distress. HEENT: moderate pallor, no icterus or lymphadenopathy. The pupils are equal. Oral cavity: There are no mucous membrane lesions. NECK: Trachea appears to be central. No masses noted. No JVD or thyromegaly appreciated. No carotid bruit. RESPIRATORY: Chest is symmetrical. No intercostals muscle retraction or any accessory muscle activation. There is no chest wall tenderness. Breath sounds are heard bilaterally. No rales or rhonchi heard. No evidence of any consolidation. BREASTS: Deferred. HEART: Heart sounds are normal with no S3 or S4. No significant murmurs. ABDOMEN: No vessel pulsations or distention. No tenderness. No organomegaly appreciated. No abdominal bruit. Bowel sounds are normally heard. : Deferred. RECTAL: Deferred. LYMPHATIC: No lymphadenopathy noted in the neck or groin. EXTREMITIES: 1+ edema both lower extremities no cyanosis. Has minimal oozing around the venous sheath in the right groin. MUSCULOSKELETAL: No acute joint deformities or swelling SKIN: There are no significant rashes. NEUROPSYCHIATRIC: The patient is alert and oriented x3. Appears to be in a good mood. The higher functions are grossly within normal limits. No tremors or rigidity noted. Urinary Catheter Management^: Ferrari: Cath Placed During This Visit: no Data : 08/02/19 03:30 08/02/19 03:30 Other Labs: Abnormal lab results 08/02/19 08/02/19 Range/Units 03:30 03:30 RBC 2.62 L (4.1-5.3) 10^6/uL Hgb 8.2 L (11.5-15.3) g/dL Hct 26.6 L (37.0-47.0) % MCV 101.5 H (81-99) fL MPV 11.0 H (7.4-10.4) fL [place] # (Auto) 1.0 H (0.2-0.9) 10^3/uL Potassium 3.2 L (3.5-5.1) mmol/L BUN 33 H (8-23) mg/dL Creatinine 1.4 H (0.5-0.9) mg/dL Glucose 245 H (74-106) mg/dL Calcium 8.7 L (8.8-10.2) mg/Dl Alkaline Phosphatase 121 H (35-105) IU/L Total Protein 6.0 L (6.6-8.7) g/dL Albumin 3.1 L (3.5-5.2) g/dL A&P Assessment and plan (1) Symptomatic bradycardia: Currently it is resolved. May continue on the current medications. Agree with the metoprolol 12.5 mg by mouth twice a day. Status: Acute Code(s): R00.1 - Bradycardia, unspecified (2) Acute kidney injury superimposed on chronic kidney disease: Patient had the hemodialysis. The electrolytes, BUN and creatinine all are improving. Management as per the nephrology service Status: Acute Code(s): N17.9 - Acute kidney failure, unspecified; N18.9 - Chronic kidney disease, unspecified (3) Diastolic heart failure: Patient currently is compensated. The acute renal failure and the atrial fibrillation are contributing factors for the diastolic heart failure. Echocardiogram was reviewed. May continue on the current measures. Status: Acute Qualifiers: Heart failure chronicity: chronic Qualified Code(s): I50.32 - Chronic diastolic (congestive) heart failure Code(s): I50.30 - Unspecified diastolic (congestive) heart failure (4) Intermittent atrial fibrillation: Patient is on long-term oral anticoagulation. Currently she is back on the ELIQUIS and there seems to be tolerating. Status: Acute Code(s): I48.0 - Paroxysmal atrial fibrillation (5) Acute metabolic encephalopathy: Currently improved Status: Acute Code(s): G93.41 - Metabolic encephalopathy Attestations Medical Necessity Statement*: Patient may be transferred out of the ICU. 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
[2019-08-02 21:01] LABS: Glucose Point of Care 167 mg/dL (70-110)
[2019-08-02] MEDS: atorvastatin 40 mg Tablet 20 MG PO (21:04)
[2019-08-03] VITALS (18 sets, daily range): BP systolic 102–195; BP diastolic 59–118; PULSE 72–93; RESP 12–26; TEMP 36.1–37.4; O2SAT 91–98
[2019-08-03] MEDS: ondansetron 2 mg/ML SDV 2 mL 4 MG IVP (00:38)
[2019-08-03] MEDS: ipratropium-albuterol 3 mL Neb INHALATION ×4 (02:35→20:41)
[2019-08-03] MEDS: metoprolol tartrate 1 mg/1 mL SDV 5 mL 5 MG IV (04:04)
[2019-08-03 05:03] LABS: Alanine Aminotransferase 7 U/L (0-33); Albumin Level 3.2 g/dL (3.5-5.2); Alkaline Phosphatase 116 IU/L (35-105); Anion Gap 16.2 (5-19); Aspartate Amino Transferase 16 U/L (0-32); Blood Urea Nitrogen 21 mg/dL (8-23); Calcium 8.9 mg/dL (8.5-10.5); Carbon Dioxide 31 mmol/L (22-29); Chloride 101 mmol/L (98-107); Globulin 3.1 g/dL (1.3-4.6); Glucose 218 mg/dL (74-106); Potassium 3.2 mmol/L (3.5-5.1); Sodium 145 mmol/L (136-145); Total Bilirubin 0.4 mg/dL (0.15-1.2); Total Protein 6.3 g/dL (6.6-8.7)
[2019-08-03 07:44] LABS: Glucose Point of Care 225 mg/dL (70-110)
--- NOTE | 2019-08-03 08:01 | P.PN_ITS ---
Subjective Subjective: Interval history: Overnight. On evaluation this morning patient is sitting in chair. Shiley catheter was removed yesterday. She denies of having any nausea, vomiting, headache, dizziness, shortness of breath, palpitations. In last 24 hours patient is noted to be having few episodes of tachycardia and elevated blood pressure. Medications: Reviewed: Yes Vitals/I&O/Wt Last Vital Signs Temp 99.3 F 08/03/19 06:00 Pulse 84 08/03/19 07:50 Resp 20 H 08/03/19 07:50 BP 170/67 08/03/19 06:00 Pulse Ox 95 08/03/19 07:50 08/02/19 08/03/19 08/03/19 22:59 06:59 14:59 Intake Total 100 / 590 100 / 690 Output Total 2450 / 2450 950 / 3400 Balance -2350 / -1860 -850 / -2710 Weight last 48 hrs Weight 104.468 kg Weight 106.776 kg Weight 106.594 kg Weight 102.739 kg Physical Exam Narrative: EXAM NARRATIVE: General: No acute distress, awake, AO x3 HEENT: PERRLA, pupils bilaterally equal and reactive Chest: Normal vesicular breath sounds, no added sounds, equal good air entry bilaterally CVS: S1-S2 regular, bradycardia,, pansystolic murmur in mitral area 3/6, no gallops, no rubs Abdomen: Soft, nontender, no organomegaly, bowel sounds present Neuro: No focal deficits, no facial deformity, AO x3, power 3 /5 in all limbs Extremities: Bilateral pulses equal and present. Right and left groin has no hematoma. Data : 08/02/19 03:30 08/03/19 04:20 A&P Assessment and plan (1) Acute kidney injury superimposed on chronic kidney disease: Status: Acute Code(s): N17.9 - Acute kidney failure, unspecified; N18.9 - Chronic kidney disease, unspecified (2) Diastolic heart failure: Status: Acute Qualifiers: Heart failure chronicity: chronic Qualified Code(s): I50.32 - Chronic diastolic (congestive) heart failure Code(s): I50.30 - Unspecified diastolic (congestive) heart failure (3) Complete heart block: Status: Acute Code(s): I44.2 - Atrioventricular block, complete (4) Hyperkalemia: Status: Acute Code(s): E87.5 - Hyperkalemia (5) Paroxysmal A-fib: Status: Acute Code(s): I48.0 - Paroxysmal atrial fibrillation (6) Chronic anticoagulation: Status: Acute Code(s): 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 Baseline creatinine of around 2.0- 2.2. We will hold off nephrotoxic drugs. Medical reconciliation done. We will continue to hold off on Cozaar, Bumex, potassium supplementation for now. Study removed yesterday. Follow-up BMP daily. Patient is euvolemic so we will continue to hold IV fluids and continue on oral consumption. Strict intake and output charting. Nephrology recommendations appreciated. Acute metabolic encephalopathy: Resolved. Most likely from complete heart blo ck, uremia, multiple psych medications which were being continued while patient was having acute on chronic renal failure. Continue with GI soft diet. Patient is tolerating it well. Fall precautions Aspiration precautions Diastolic heart failure: Last 24 hours patient is -2.7 L. Patient seems to be going into contraction alkalosis now. Is still mildly tachypneic. We will start patient on oral Lasix 20 mg daily. We will continue to monitor for worsening contraction alkalosis. Strict input taken output. O2 supplementation keeping SPO2 > 92%. Complete heart block: Secondary to hyperkalemia:Resolved Most likely due to acute on chronic kidney disease, home dose of Cozaar, Bumex, potassium supplementation. Patient seen by Dr. Gregorio this morning. Wants patient to be on Cardizem 90 mg daily. We will stop the metoprolol. Cardiology recommendations appreciated. Possible pyelonephritis: CT abdomen done on suggestive of possible mild pyelonephritis. Patient has been on Zosyn and vancomycin. MRSA is negative so we will discontinue vancomycin. We will continue Zosyn for 1 more day and finish off the course of 5 days. Blood cultures remain negative. Hypertension: Blood pressures elevated in last 24 hours. We will start patient on home dose of Imdur. If blood pressure remains elevated will introduce home dose of hydralazine gradually. As patient was recently recovering from cardiogenic shock will reintroduce medications gradually. Keep MAP >65mmhg. Nausea: Patient having mild nausea since last night. Most likely because of recurrent feeling uremia. LFTs unremarkable except elevated alkaline phosphatase. CT abdomen shows cholecystectomy but mildly dilated biliary system. CT scan discussed with Dr. Benitez from radiology. She states biliary system is dilated but stable as compared to her last study. We will do right upper quadrant ultrasound to rule out any further dilation. We will put patient on full liquid diet rather than GI soft and advance gradually. Type 2 diabetes mellitus: We will check HbA1c tomorrow morning. Moderate insulin sliding scale AC and HS. History of paroxysmal A. fib/history of pulmonary embolism: NSR right now. As creatinine is improved will increase the Eliquis to 5 mg twice daily. This dosage is as per her renal clearance. H/o Diastolic HF: Last ECHO shows Diastolic HF. Repeat ECHO aprreciated. Pt euvoluemic at present. Depression: Patient is stable. We will continue hold hold off the depression medications for now. TSH elevated but free T3 and T4 within normal limits. Most likely due to critical illness at present. Eliquis will also help for DVT prophylaxis. FC as per grandson who is bedside. Full liquid diet. Physical therapy today. Care coordination consult for set-up of home health services. Patient is stable enough to be transferred to the floors. We will transfer patient to [facility]. Attestations Medical Necessity Statement*: Needs continued hospitalization for management of complete heart block, diastolic heart failure, acute on chronic kidney disease. Time Spent in Patient Care: Greater than 35 minutes (>than 50% of time spent in counselling and/or direct pt care on unit) . Coding Level of Care Code Acute Secure Software Assessor for g Fwd Diagnoses Acute kidney injury superimposed on chronic kidney disease N17.9; N18.9 Diastolic heart failure I50.32 Heart failure chronicity: chronic Complete heart block I44.2 Hyperkalemia E87.5 Paroxysmal A-fib I48.0 Chronic anticoagulation Z79.01 Hypertension I10 Type 2 diabetes mellitus E11.9
[2019-08-03] MEDS: levothyroxine 100 mcg Tablet PO (08:13)
[2019-08-03] MEDS: metoprolol tartrate 25 mg Tablet 12.5 MG PO (08:13)
[2019-08-03] MEDS: isosorbide mononitrate ER 30 mg Tablet PO (08:14)
[2019-08-03] MEDS: apixaban 5 mg Tablet 2.5 MG PO (08:14)
[2019-08-03] MEDS: aspirin 81 mg EC Tablet PO (08:14)
--- NOTE | 2019-08-03 09:48 | PC.NURSE ---
Dr. Gregorio in room. Orders received to stop metoprolol and administer 90 mg Cardizem PO daily starting at noon today.
--- NOTE | 2019-08-03 10:10 | PC.NURSE ---
Dr. Hobbs in room. Orders received to hold Cardizem until 1400 today.
--- NOTE | 2019-08-03 10:27 | P.PN_ITS ---
Subjective Subjective: Interval history: Patient denies any chest pain or palpitation. The heart rate stays high and seems to be sinus tachycardia. Her blood pressure also seems to be staying high. Patient is back to her baseline. Frequency and the duration of these episodes have not changed. She is wanting to have dietary consult Medications: Medication Review Details: Current Medications Albuterol Sulfate (Albuterol) 2.5 mg INHALATION Q4H.RESPIRATORY PRN PRN Reason: shortness Albuterol/Ipratropium (Duoneb) 3 ml INHALATION Q6H.RESPIRATORY [facility] Last Admin: 08/01/19 14:04 Dose: 3 ml Documented by: Apixaban (Eliquis) 2.5 mg PO BID [facility] Last Admin: 08/01/19 16:54 Dose: 2.5 mg Documented by: Aspirin (Aspirin Ec) 81 mg PO DAILY [facility] Last Admin: 08/01/19 09:17 Dose: 81 mg Documented by: Atorvastatin Calcium (Lipitor) 20 mg PO BEDTIME [facility] Carbidopa/Levodopa (Sinemet) 1 each PO BID [facility] Last Admin: 08/01/19 17:05 Dose: 1 each Documented by: Cyanocobalamin (Vitamin B-12) 1,000 mcg IM UNK PRN PRN Reason: MONTHLY SHOT Dextrose (D50w) 25 ml IVP ONCE PRN; Protocol PRN Reason: hypoglycemia protocol Dextrose (D50w) 50 ml IVP PRN PRN; Protocol PRN Reason: hypoglycemia protocol Glucagon (Glucagen) 1 mg IM ONCE PRN; Protocol PRN Reason: Adult Acute Hypoglycemia Prot. Dextrose (D5w) 500 mls @ 100 mls/hr IV ONCE PRN; Protocol PRN Reason: Adult Acute Hypoglycemia Prot Imipenem/Cilastatin Sodium 250 (mg/ Sodium Chloride) 100 mls @ 200 mls/hr IV Q12H [facility]; Protocol Last Infusion: 08/01/19 09:47 Dose: Infused Documented by: Sodium Chloride (Sodium Chloride 0.9%) 1,000 mls @ 200 mls/hr IV .Q5H [facility] Last Admin: 08/01/19 17:58 Dose: 200 mls/hr Documented by: Vancomycin HCl 1,000 mg/ (Sodium Chloride) 250 mls @ 250 mls/hr IV Q48H [facility]; Protocol Last Admin: 07/31/19 18:33 Dose: Not Given Documented by: Dextrose (D5w) 500 mls @ 100 mls/hr IV ONCE PRN; Protocol PRN Reason: Adult Acute Hypoglycemia Prot Insulin Aspart (Novolog) 0 unit SUBCUT AC [facility]; Protocol Last Admin: 08/01/19 17:05 Dose: Not Given Documented by: Insulin Aspart (Novolog) 0 unit SUBCUT BEDTIME [facility]; Protocol Levothyroxine Sodium (Synthroid) 100 mcg PO DAILY [facility] Last Admin: 08/01/19 09:17 Dose: 100 mcg Documented by: Nitroglycerin (Nitrostat) 0.4 mg SUBLINGUAL Q5MIN PRN PRN Reason: Angina Ondansetron HCl (Zofran) 4 mg IVP Q8H PRN PRN Reason: vomiting, or N/V if npo Pantoprazole Sodium (Protonix) 40 mg IVP DAILY [facility] Last Admin: 08/01/19 09:17 Dose: 40 mg Documented by: Fluticasone/Salmeterol (Advair Diskus 250-50) 1 puff INHALATION BID.RESPIRATORY [facility] Last Admin: 08/01/19 08:10 Dose: 250 mcg Documented by: Vitals/I&O/Wt Last Vital Signs Temp 99.3 F 08/03/19 06:00 Pulse 73 08/03/19 10:00 Resp 23 H 08/03/19 10:00 BP 139/115 08/03/19 10:00 Pulse Ox 94 08/03/19 10:00 08/02/19 08/03/19 08/03/19 22:59 06:59 14:59 Intake Total 100 / 590 100 / 690 350 / 350 Output Total 2450 / 2450 950 / 3400 225 / 225 Balance -2350 / -1860 -850 / -2710 125 / 125 Weight last 48 hrs Weight 230 lb 5 oz Weight 235 lb 6.4 oz Weight 235 lb Physical Exam Narrative: EXAM NARRATIVE: GENERAL: The patient is alert and oriented times three. Not in any acute distress. HEENT: moderate pallor, no icterus or lymphadenopathy. The pupils are equal. Oral cavity: There are no mucous membrane lesions. NECK: Trachea appears to be central. No masses noted. No JVD or thyromegaly appreciated. No carotid bruit. RESPIRATORY: Chest is symmetrical. No intercostals muscle retraction or any accessory muscle activation. There is no chest wall tenderness. Breath sounds are heard bilaterally. No rales or rhonchi heard. No evidence of any consolidation. BREASTS: Deferred. HEART: Heart sounds are normal with no S3 or S4. No significant murmurs. ABDOMEN: No vessel pulsations or distention. No tenderness. No organomegaly appreciated. No abdominal bruit. Bowel sounds are normally heard. : Deferred. RECTAL: Deferred. LYMPHATIC: No lymphadenopathy noted in the neck or groin. EXTREMITIES: 1+ edema both lower extremities no cyanosis. Has minimal oozing around the venous sheath in the right groin. MUSCULOSKELETAL: No acute joint deformities or swelling SKIN: There are no significant rashes. NEUROPSYCHIATRIC: The patient is alert and oriented x3. Appears to be in a good mood. The higher functions are grossly within normal limits. No tremors or rigidity noted. Urinary Catheter Management^: Ferrari: Cath Placed During This Visit: no Data : 08/02/19 03:30 08/03/19 04:20 Other Labs: Laboratory Results - last 24 hr 08/02/19 08/02/19 08/02/19 11:26 17:45 20:58 Sodium Potassium Chloride Carbon Dioxide Anion Gap BUN Creatinine Glucose POC Glucose 248 234 167 Calcium Total Bilirubin AST ALT Alkaline Phosphatase Total Protein Albumin Globulin 08/03/19 08/03/19 04:20 07:39 Sodium 145 Potassium 3.2 L Chloride 101 Carbon Dioxide 31 H Anion Gap 16.2 BUN 21 Creatinine 1.1 H Glucose 218 H POC Glucose 225 Calcium 8.9 Total Bilirubin 0.4 AST 16 ALT 7 Alkaline Phosphatase 116 H Total Protein 6.3 L Albumin 3.2 L Globulin 3.1 A&P Assessment and plan (1) Intermittent atrial fibrillation: Patient is on long-term oral anticoagulation. Currently she is back on the ELIQUIS and there seems to be tolerating. She is in sinus rhythm and the heart rate is in the 90s. Because of the bradycardia with the beta-michael, even though acute kidney injury might have caused to the extreme bradycardia, I may start her on a calcium channel michael, to control the heart rate. Will discontinue the metoprolol. Started on Cardizem long-acting 90 mg p.o. daily Status: Acute Code(s): I48.0 - Paroxysmal atrial fibrillation (2) Acute kidney injury superimposed on chronic kidney disease: Her kidney function is almost back to the baseline now. May continue on the current measures. Status: Acute Code(s): N17.9 - Acute kidney failure, unspecified; N18.9 - Chronic kidney disease, unspecified (3) Diastolic heart failure: Patient currently is compensated. The acute renal failure and the atrial fibrillation are contributing factors for the diastolic heart failure. Ech ocardiogram was reviewed. May continue on the current measures. Status: Acute Qualifiers: Heart failure chronicity: chronic Qualified Code(s): I50.32 - Chronic diastolic (congestive) heart failure Code(s): I50.30 - Unspecified diastolic (congestive) heart failure (4) Acute metabolic encephalopathy: Currently improved Status: Acute Code(s): G93.41 - Metabolic encephalopathy Additional A&P Information Status post bradycardia, requiring temporary pacer, currently resolved Diltiazem LA 90 mg PO daily. Discontinue the metoprolol May continue other measures Please make an appointment to be seen at the [facility] in 1 week, after discharge, to be seen by the nurse practitioner I may see the patient in the office in 1 month. Attestations Medical Necessity Statement*: Disposition as per the primary Coding Level of Care Code Acute Loss Prevention Detective for Ch[facility] Fwd Diagnoses Intermittent atrial fibrillation I48.0 Acute kidney injury superimposed on chronic kidney disease N17.9; N18.9 Diastolic heart failure I50.32 Heart failure chronicity: chronic Acute metabolic encephalopathy G93.41
--- NOTE | 2019-08-03 11:22 | US_ITS ---
WS: [id number] RIGHT UPPER QUADRANT ULTRASOUND HISTORY: post cholecystectomy Billiary dilatation COMPARISON: CT 08/01/2019 Liver: 14.7 cm in length. Normal size and echogenicity with no intrahepatic dilatation. No mass. Gallbladder: Gallbladder is been surgically removed. CBD: 6.5 mm Pancreas: Pancreatic tail is obscured by bowel gas. Head and body are negative. Right kidney: 12.8 cm in length. Normal size kidney with diffuse cortical thinning. No hydronephrosis or mass. Previously described cortical cyst is not evident today. Aorta and IVC: Unremarkable. No ascites. US/US abdomen limited [id number] IMPRESSION: 1. Common bile duct is normal at 6.5 mm status post cholecystectomy. 2. No intrahepatic bile duct dilatation.
[2019-08-03] MEDS: FUROsemide 20 mg Tablet PO (11:24)
[2019-08-03 11:35] LABS: Glucose Point of Care 196 mg/dL (70-110)
--- NOTE | 2019-08-03 15:12 | PM.PN ---
Subjective Subjective: Interval history: feels much better, out of bed in chair Vitals/I&O/Wt Last Vital Signs Temp 99.3 F 08/03/19 06:00 Pulse 72 08/03/19 14:03 Resp 18 08/03/19 14:03 BP 161/69 08/03/19 14:00 Pulse Ox 98 08/03/19 14:03 08/03/19 08/03/19 08/03/19 06:59 14:59 22:59 Intake Total 100 / 690 650 / 650 Output Total 950 / 3400 350 / 350 Balance -850 / -2710 300 / 300 Weight last 48 hrs Weight 104.468 kg Weight 106.776 kg Weight 106.594 kg Physical Exam Urinary Catheter Management^: Ferrari: Cath Placed During This Visit: no Data : 08/02/19 03:30 08/03/19 04:20 Attestations Medical Necessity Statement*: per primary service Coding Level of Care Code Acute Enzyme Chemist for Patrizia Corral
--- NOTE | 2019-08-03 15:51 | PC.NURSE ---
Dr. Gregorio notified of pharmacy dosing for Cardizem ER. Orders received from Dr. Gregorio to administer 120 mg Cardizem ER PO daily.
[2019-08-03] MEDS: eye irrigation 30 mL Btl EYE-RIGHT (16:11)
[2019-08-03] MEDS: dilTIAZem ER (24HR) 120 mg Capsule PO (16:11)
[2019-08-03] MEDS: pantoprazole DR 40 mg Tablet PO (16:11)
[2019-08-03 16:24] LABS: Glucose Point of Care 236 mg/dL (70-110)
[2019-08-03] MEDS: apixaban 5 mg Tablet PO (17:16)
--- NOTE | 2019-08-03 18:43 | PC.NURSE ---
Ferrari catheter removed. 10 mL removed from bulb. Catheter intact. Patient tolerated procedure well.
[2019-08-03 21:08] LABS: Glucose Point of Care 181 mg/dL (70-110)
[2019-08-03] MEDS: atorvastatin 40 mg Tablet 20 MG PO (21:39)
[2019-08-04] VITALS (21 sets, daily range): BP systolic 137–158; BP diastolic 56–74; PULSE 67–93; RESP 11–25; TEMP 36.6–37.3; O2SAT 92–99
[2019-08-04] MEDS: ipratropium-albuterol 3 mL Neb INHALATION ×4 (03:19→20:25)
[2019-08-04 05:32] LABS: Basophils % 0.2 %; Eosinophils # 0.2 10^3/uL (0.0-0.8); Eosinophils % 2.2 %; Hematocrit 25.8 % (37.0-47.0); Hemoglobin 7.9 g/dL (11.5-15.3); Mean Corpuscular HGB Conc 30.6 g/dL (30.0-36.0); Mean Corpuscular Hemoglobin 31.2 pg (28.0-34.0); Mean Platelet Volume 10.5 fL (7.4-10.4); Monocytes # 0.6 10^3/uL (0.2-0.9); Monocytes % 7.7 %; Neutrophils # 6.3 10^3/uL (1.8-7.7); Neutrophils % 77.3 %; Nucleated Red Blood Cells % 0 %; Platelet Count 180 10^3/cmm (130-400); Red Blood Count 2.53 10^6/uL (4.1-5.3); Red Cell Distribution Width 13.5 % (12.1-15.1); White Blood Count 8.2 10^3/uL (4.0-10.0)
[2019-08-04 05:55] LABS: Alanine Aminotransferase 6 U/L (0-33); Albumin Level 3.3 g/dL (3.5-5.2); Alkaline Phosphatase 100 IU/L (35-105); Anion Gap 15.1 (5-19); Aspartate Amino Transferase 11 U/L (0-32); Blood Urea Nitrogen 21 mg/dL (8-23); Calcium 9.1 mg/dL (8.5-10.5); Carbon Dioxide 32 mmol/L (22-29); Chloride 101 mmol/L (98-107); Globulin 2.5 g/dL (1.3-4.6); Glucose 187 mg/dL (74-106); Potassium 3.1 mmol/L (3.5-5.1); Sodium 145 mmol/L (136-145); Total Bilirubin 0.4 mg/dL (0.15-1.2); Total Protein 5.8 g/dL (6.6-8.7)
[2019-08-04 08:20] LABS: Glucose Point of Care 199 mg/dL (70-110)
--- NOTE | 2019-08-04 09:18 | DCPLANNER ---
Pg 2 of IM updated and reviewed with pt., no questions, copy provided.
[2019-08-04] MEDS: FUROsemide 20 mg Tablet PO (10:37)
[2019-08-04] MEDS: aspirin 81 mg EC Tablet PO (10:37)
[2019-08-04] MEDS: isosorbide mononitrate ER 30 mg Tablet PO (10:37)
[2019-08-04] MEDS: levothyroxine 100 mcg Tablet PO (10:37)
[2019-08-04] MEDS: dilTIAZem ER (24HR) 120 mg Capsule PO (10:37)
[2019-08-04] MEDS: apixaban 5 mg Tablet PO ×2 (10:37→17:17)
[2019-08-04] MEDS: eye irrigation 30 mL Btl EYE-RIGHT (10:38)
[2019-08-04 11:34] LABS: Magnesium 1.6 mg/dL (1.7-2.3)
[2019-08-04 11:44] LABS: Glucose Point of Care 293 mg/dL (70-110)
--- NOTE | 2019-08-04 12:55 | PM.PN ---
Subjective Subjective: Interval history: This morning bothered by irritation in her right eye from a small particle which was noticed earlier in ICU but could not be retrieved. She says she is otherwise doing well, without any pain, trouble breathing, or any other discomfort. Sitting up in chair. Vitals/I&O/Wt Last Vital Signs Temp 99.1 F 08/04/19 07:16 Pulse 71 08/04/19 12:00 Resp 25 H 08/04/19 12:00 BP 137/74 08/04/19 12:00 Pulse Ox 96 08/04/19 11:27 08/03/19 08/04/19 08/04/19 22:59 06:59 14:59 Intake Total 400 / 1050 100 / 1150 500 / 500 Output Total 400 / 750 Balance 0 / 300 100 / 400 500 / 500 Weight last 48 hrs Weight 96.071 kg Weight 104.468 kg Physical Exam Const: COMMON NORMALS: no apparent distress and oriented x3 HENMT: COMMON NORMALS: oropharynx normal Eye: OTHER: Small (0.5 mm) black speck at the inferior lateral edge of the iris. No scleral erythema. Neck/C-Spine: COMMON NORMALS: no JVD Resp: COMMON NORMALS: normal respiratory effort and clear to auscultation bilaterally AUSCULTATION: clear to auscultation bilaterally Cardio: COMMON NORMALS: no JVD, regular rhythm, S1 normal heart sound, S2 normal heart sound and no murmurs RHYTHM: regular rhythm HEART SOUNDS: S1 normal and S2 normal GI: COMMON NORMALS: normal to inspection, nondistended, normoactive bowel sounds, soft to palpation and non-tender PALPATION: Yes soft Extremity: COMMON NORMALS: no joint enlargement and no pedal edema Neuro: COMMON NORMALS: oriented x3 and moves all extremities Skin: COMMON NORMALS: no rashes or lesions noted GENERAL SKIN EXAM: no rashes or lesions noted Urinary Catheter Management^: Ferrari: Cath Placed During This Visit: no Data : 08/04/19 05:21 08/04/19 05:21 A&P Assessment and plan (1) Anemia: With slow downtrend of hemoglobin, today down to 7.9. She does not report any symptoms. She is on anticoagulation. Will request for FIT. For now will increase pantoprazole to twice daily. Continue anticoagulation for now. Reassess hemoglobin in the morning. Status: Acute Code(s): D64.9 - Anemia, unspecified (2) Acute kidney injury superimposed on chronic kidney disease: Resolved. Status: Acute Code(s): N17.9 - Acute kidney failure, unspecified; N18.9 - Chronic kidney disease, unspecified (3) Diastolic heart failure: With 1-2+ edema lower extremities. I&O difficult at this time as Ferrari catheter has been removed. Continue Lasix. Monitor volume status, renal function. Continue NC oxygen. Currently close to baseline requirement of 3 L/min, although needing slightly more at 4 L. With some peripheral edema, some declining hemoglobin, monitor for again worsening volume status. May need higher dose of diuretic. Monitor strict I&O's as possible. Status: Acute Qualifiers: Heart failure chronicity: chronic Qualified Code(s): I50.32 - Chronic diastolic (congestive) heart failure Code(s): I50.30 - Unspecified diastolic (congestive) heart failure (4) Complete heart block: Appears to have been secondary to a reversible cause of hyperkalemia. Resolved. Continue Cardizem. Metoprolol is held. Status: Acute Code(s): I44.2 - Atrioventricular block, complete (5) Hyperkalemia: Resolved. Status: Acute Code(s): E87.5 - Hyperkalemia (6) Paroxysmal A-fib: Currently SR. Continue CardizemBolivar. Status: Acute Code(s): I48.0 - Paroxysmal atrial fibrillation (7) Chronic anticoagulation: Status: Acute Code(s): Z79.01 - terminologist (current) use of anticoagulants (8) Hypertension: At goal. Status: Acute Code(s): I10 - Essential (primary) hypertension (9) Type 2 diabetes mellitus: Continue SSI. A1c 7.9. Status: Acute Code(s): E11.9 - Type 2 diabetes mellitus without complications (10) Hypomagnesemia: Replace. Status: Acute Code(s): E83.42 - Hypomagnesemia Additional A&P Information Foreign body of right eye: Small black speck noted at the inferior lateral outer edge of the right iris which could not be retrieved in ICU. Removed gently with a cotton swab. Acute metabolic encephalopathy: Resolved. Possible pyelonephritis: CT abdomen done on suggestive of possible mild pyelonephritis. Completed course of antibiotics. She is feeling well. Nausea: Resolved. Right upper quadrant ultrasound appreciated with normal CBD, no intrahepatic bile duct dilation. H/o Diastolic HF: Last ECHO shows Diastolic HF. Moderate MR Moderate TR Moderate pulmonary hypertension Depression Hypothyroidism, will go up on levothyroxine dose slightly, recheck TSH in 3 weeks. Attestations Medical Necessity Statement*: Continue admission for assessment and management of anemia, replace electrolytes, reassess volume status with congestive heart failure, optimize medications in preparation for discharge home. Coding Level of Care Code Acute Telegraph Equipment Maintainer for Chg Fwd Diagnoses Anemia D64.9 Acute kidney injury superimposed on chronic kidney disease N17.9; N18.9 Diastolic heart failure I50.32 Heart failure chronicity: chronic Complete heart block I44.2 Hyperkalemia E87.5 Paroxysmal A-fib I48.0 Chronic anticoagulation Z79.01 Hypertension I10 Type 2 diabetes mellitus E11.9 Hypomagnesemia E83.42
--- NOTE | 2019-08-04 14:11 | P.PN_ITS ---
Subjective Subjective: Interval history: Continues to be in sinus rhythm feeling much better. Medications: Reviewed: Yes Medication Review Details: Current Medications Albuterol Sulfate (Albuterol) 2.5 mg INHALATION Q4H.RESPIRATORY PRN PRN Reason: shortness Albuterol/Ipratropium (Duoneb) 3 ml INHALATION Q6H.RESPIRATORY REPLACED BY [facility] Last Admin: 08/01/19 14:04 Dose: 3 ml Documented by: Apixaban (Eliquis) 2.5 mg PO BID REPLACED BY [facility] Last Admin: 08/01/19 16:54 Dose: 2.5 mg Documented by: Aspirin (Aspirin Ec) 81 mg PO DAILY REPLACED BY [facility] Last Admin: 08/01/19 09:17 Dose: 81 mg Documented by: Atorvastatin Calcium (Lipitor) 20 mg PO BEDTIME REPLACED BY [facility] Carbidopa/Levodopa (Sinemet) 1 each PO BID REPLACED BY [facility] Last Admin: 08/01/19 17:05 Dose: 1 each Documented by: Cyanocobalamin (Vitamin B-12) 1,000 mcg IM UNK PRN PRN Reason: MONTHLY SHOT Dextrose (D50w) 25 ml IVP ONCE PRN; Protocol PRN Reason: hypoglycemia protocol Dextrose (D50w) 50 ml IVP PRN PRN; Protocol PRN Reason: hypoglycemia protocol Glucagon (Glucagen) 1 mg IM ONCE PRN; Protocol PRN Reason: Adult Acute Hypoglycemia Prot. Dextrose (D5w) 500 mls @ 100 mls/hr IV ONCE PRN; Protocol PRN Reason: Adult Acute Hypoglycemia Prot Imipenem/Cilastatin Sodium 250 (mg/ Sodium Chloride) 100 mls @ 200 mls/hr IV Q12H REPLACED BY [facility]; Protocol Last Infusion: 08/01/19 09:47 Dose: Infused Documented by: Sodium Chloride (Sodium Chloride 0.9%) 1,000 mls @ 200 mls/hr IV .Q5H REPLACED BY [facility] Last Admin: 08/01/19 17:58 Dose: 200 mls/hr Documented by: Vancomycin HCl 1,000 mg/ (Sodium Chloride) 250 mls @ 250 mls/hr IV Q48H REPLACED BY [facility]; Protocol Last Admin: 07/31/19 18:33 Dose: Not Given Documented by: Dextrose (D5w) 500 mls @ 100 mls/hr IV ONCE PRN; Protocol PRN Reason: Adult Acute Hypoglycemia Prot Insulin Aspart (Novolog) 0 unit SUBCUT AC REPLACED BY [facility]; Protocol Last Admin: 08/01/19 17:05 Dose: Not Given Documented by: Insulin Aspart (Novolog) 0 unit SUBCUT BEDTIME [facility]; Protocol Levothyroxine Sodium (Synthroid) 100 mcg PO DAILY [facility] Last Admin: 08/01/19 09:17 Dose: 100 mcg Documented by: Nitroglycerin (Nitrostat) 0.4 mg SUBLINGUAL Q5MIN PRN PRN Reason: Angina Ondansetron HCl (Zofran) 4 mg IVP Q8H PRN PRN Reason: vomiting, or N/V if npo Pantoprazole Sodium (Protonix) 40 mg IVP DAILY [facility] Last Admin: 08/01/19 09:17 Dose: 40 mg Documented by: Fluticasone/Salmeterol (Advair Diskus 250-50) 1 puff INHALATION BID.RESPIRATORY [facility] Last Admin: 08/01/19 08:10 Dose: 250 mcg Documented by: Vitals/I&O/Wt Last Vital Signs Temp 99.1 F 08/04/19 07:16 Pulse 71 08/04/19 12:00 Resp 25 H 08/04/19 12:00 BP 137/74 08/04/19 12:00 Pulse Ox 96 08/04/19 11:27 08/03/19 08/04/19 08/04/19 22:59 06:59 14:59 Intake Total 400 / 1050 100 / 1150 500 / 500 Output Total 400 / 750 Balance 0 / 300 100 / 400 500 / 500 Weight last 48 hrs Weight 211 lb 12.8 oz Weight 230 lb 5 oz Physical Exam Narrative: EXAM NARRATIVE: GENERAL: Patient is alert, awake and oriented x3. NECK: No jugular vein distension. HEENT: No cyanosis. No icterus. No pallor. HEART: Regular S1 and S2. No murmur, rub or gallop. LUNGS: Clear to auscultate bilaterally. ABDOMEN: Soft, nontender and nondistended. Positive bowel sounds. No guarding, rebound or tenderness. CENTRAL NERVOUS SYSTEM: Grossly nonfocal. EXTREMITIES: Lower extremities without edema bilaterally. Urinary Catheter Management^: Ferrari: Cath Placed During This Visit: no Data : 08/04/19 05:21 08/04/19 05:21 A&P Assessment and plan (1) Intermittent atrial fibrillation: On statin channel michael now. She is stable and not tachycardic anymore. Continue Eliquis. Status: Acute Code(s): I48.0 - Paroxysmal atrial fibrillation (2) Acute kidney injury superimposed on chronic kidney disease: Stable now. Status: Acute Code(s): N17.9 - Acute kidney failure, unspecified; N18.9 - Chronic kidney disease, unspecified (3) Diastolic heart failure: Appeared well compensated. Continue current regimen Status: Acute Qualifiers: Heart failure chronicity: chronic Qualified Code(s): I50.32 - Chronic diastolic (congestive) heart failure Code(s): I50.30 - Unspecified diastolic (congestive) heart failure (4) Acute metabolic encephalopathy: Improved and stable. Status: Acute Code(s): G93.41 - Metabolic encephalopathy Additional A&P Information Status post bradycardia, requiring temporary pacer, currently resolved Diltiazem LA 90 mg PO daily. Discontinue the metoprolol May continue other measures Please make an appointment to be seen at [facility] in 1 week, after discharge, to be seen by the nurse practitioner I may see the patient in the office in 1 month. Attestations Medical Necessity Statement*: From a cardiac vascular perspective patient is stable. Medicine is optimizing her Treatment. Most likely she'll be discharged tomorrow as per medicine Coding Level of Care Code Acute Drum Dyeing Machine Operator for Patrizia Fwd History Expanded Problem Focused Exam Expanded Problem Focused Medical Decision Making Moderate Complexity Diagnoses Intermittent atrial fibrillation I48.0 Acute kidney injury superimposed on chronic kidney disease N17.9; N18.9 Diastolic heart failure I50.32 Heart failure chronicity: chronic Acute metabolic encephalopathy G93.41
[2019-08-04 16:13] LABS: Glucose Point of Care 122 mg/dL (70-110)
[2019-08-04] MEDS: pantoprazole DR 40 mg Tablet PO (17:17)
[2019-08-04] MEDS: magnesium sulfate premix 2 GM/50 ML PIGGYBACK IV (17:17)
[2019-08-04] MEDS: gabapentin 300 mg Capsule PO ×2 (17:17→20:53)
[2019-08-04] MEDS: atorvastatin 40 mg Tablet 20 MG PO (20:52)
[2019-08-04 22:35] LABS: Glucose Point of Care 166 mg/dL (70-110)
--- NOTE | 2019-08-04 22:53 | PC.NURSE ---
Addendum entered by Cherelle Parisi RN 08/05/19 04:57: discovered that i had hit the wrong dosage time (two popped up) when choosing which dose i was going to give. Original Note: GAVE PATIENT HER INSULIN AT 2052 THE SAME TIME I GAVE HER HER ATORVASTATIN AND GABAPENTIN. AMELIE WANG SIGNED OFF ON THE INSULIN AND MEDS SAVED. WHEN TO LOOK BACK AT MAR AT 2250 AND SAW THAT HER INSULIN DID NOT SAVE BUT THE OTHER TWO MEDS HAD. WE MANUALLY UT IT IN AND AMELIE RESIGNED AND IT TOOK THIS TIME. ALSO THIS EVENING IN DAY SHIFT THE NURSE GAVE PATIENT HER MUCINEX BUT HER SCAN DID NOT TAKE IT WAS READING THAT IT HADNT BEEN GIVEN BUT THIS PATIENT AND ONE OTHER HAD GOTTEN THEIR MEDICINE IN QUESTION I VERIFIED.
[2019-08-05] VITALS (24 sets, daily range): BP systolic 142–186; BP diastolic 56–91; PULSE 68–90; RESP 14–24; TEMP 36.6–37.1; O2SAT 93–98
--- NOTE | 2019-08-05 00:40 | PC.NURSE ---
patient xomplained of her lefs and feet swelling more than before. said she could feel the tingle and it was tender when pressed slightly to principal trainer pitting, which found to be +2 on left foot and +3 on right. Elevated feet, educated about drinking things with sodium in them on her full liquid diet and to keep feet elevated as often as possible to assist in bringing down swelling.
[2019-08-05] MEDS: ipratropium-albuterol 3 mL Neb INHALATION ×4 (03:04→20:27)
[2019-08-05 04:55] LABS: Basophils % 0.3 %; Eosinophils # 0.3 10^3/uL (0.0-0.8); Eosinophils % 3.9 %; Hematocrit 23.9 % (37.0-47.0); Hemoglobin 7.3 g/dL (11.5-15.3); Lymphocytes # 1.2 10^3/uL (0.8-4.8); Lymphocytes % 17.5 %; Mean Corpuscular HGB Conc 30.5 g/dL (30.0-36.0); Mean Corpuscular Hemoglobin 30.2 pg (28.0-34.0); Mean Corpuscular Volume 98.8 fL (81-99); Mean Platelet Volume 10.8 fL (7.4-10.4); Monocytes # 0.5 10^3/uL (0.2-0.9); Monocytes % 7.8 %; Neutrophils # 4.9 10^3/uL (1.8-7.7); Neutrophils % 70.2 %; Nucleated Red Blood Cells % 0 %; Platelet Count 173 10^3/cmm (130-400); Red Blood Count 2.42 10^6/uL (4.1-5.3); Red Cell Distribution Width 13.5 % (12.1-15.1); White Blood Count 6.9 10^3/uL (4.0-10.0)
[2019-08-05 05:15] LABS: Anion Gap 14.6 (5-19); Blood Urea Nitrogen 17 mg/dL (8-23); Calcium 9.3 mg/dL (8.5-10.5); Carbon Dioxide 33 mmol/L (22-29); Chloride 101 mmol/L (98-107); Glucose 125 mg/dL (74-106); Osmolality Calculated 298 mOsm/kg (285-295); Potassium 3.6 mmol/L (3.5-5.1); Sodium 145 mmol/L (136-145)
[2019-08-05 07:35] LABS: Glucose Point of Care 157 mg/dL (70-110)
[2019-08-05] MEDS: FUROsemide 20 mg Tablet PO (07:44)
--- NOTE | 2019-08-05 09:11 | DCPLANNER ---
Pg 2 of IM was reviewed with pt - yesterday however promotion writer failed to enter a note. No questions, copy provided.
[2019-08-05] MEDS: eye irrigation 30 mL Btl EYE-RIGHT ×2 (09:36→17:48)
[2019-08-05] MEDS: pantoprazole DR 40 mg Tablet PO ×2 (09:36→17:48)
[2019-08-05] MEDS: gabapentin 300 mg Capsule PO ×3 (09:36→22:02)
[2019-08-05] MEDS: levothyroxine 112 mcg Tablet PO (09:37)
[2019-08-05] MEDS: dilTIAZem ER (24HR) 120 mg Capsule PO (09:37)
[2019-08-05] MEDS: isosorbide mononitrate ER 30 mg Tablet PO (09:37)
--- NOTE | 2019-08-05 09:52 | P.PN_ITS ---
Subjective Subjective: Interval history: She is feeling about the same, but gets easily tired/dyspneic with exertion. Vitals/I&O/Wt Last Vital Signs Temp 98.2 F 08/05/19 07:28 Pulse 88 08/05/19 08:28 Resp 17 08/05/19 08:19 BP 176/72 08/05/19 07:28 Pulse Ox 93 08/05/19 08:19 08/04/19 08/05/19 08/05/19 22:59 06:59 14:59 Intake Total 600 / 1100 Output Total 250 / 250 Balance 350 / 850 Weight last 48 hrs Weight 96.071 kg Physical Exam Const: COMMON NORMALS: no apparent distress and oriented x3 HENMT: COMMON NORMALS: oropharynx normal Eye: OTHER: No scleral erythema. Neck/C-Spine: COMMON NORMALS: no JVD Resp: COMMON NORMALS: normal respiratory effort and clear to auscultation bilaterally AUSCULTATION: clear to auscultation bilaterally Cardio: COMMON NORMALS: no JVD, regular rhythm, S1 normal heart sound, S2 normal heart sound and no murmurs RHYTHM: regular rhythm HEART SOUNDS: S1 normal and S2 normal GI: COMMON NORMALS: normal to inspection, nondistended, normoactive bowel sounds, soft to palpation and non-tender PALPATION: Yes soft Extremity: COMMON NORMALS: no joint enlargement and no pedal edema Neuro: COMMON NORMALS: oriented x3 and moves all extremities Skin: COMMON NORMALS: no rashes or lesions noted GENERAL SKIN EXAM: no rashes or lesions noted Urinary Catheter Management^: Ferrari: Cath Placed During This Visit: no Data : 08/05/19 04:10 08/05/19 04:10 A&P Assessment and plan (1) Anemia: Due to symptomatic anemia, with fatigability, dyspnea on exertion will transfuse 1 unit PRBC. Hemoglobin down to 7.2 today. Slow blood loss, some with definitely from blood draws, however, appears may be having some blood loss elsewhere as well. Several years ago had EGD and colonoscopy done by Dr. Dick. Currently already on PPI twice daily. Discussed with surgery, given gastritis seen on prior EGD, as well as colonoscopy being performed several years ago with diverticulitis, deemed likely low benefit in repeating the studies currently. We will continue to treat for suspected gastritis with twice daily PPI. We will add sucralfate. Assess for H. pylori. Continue Eliquis for now. Recheck hemoglobin in the morning. Status: Acute Code(s): D64.9 - Anemia, unspecified (2) Acute kidney injury superimposed on chronic kidney disease: Resolved. Status: Acute Code(s): N17.9 - Acute kidney failure, unspecified; N18.9 - Chronic kidney disease, unspecified (3) Diastolic heart failure: With 1-2+ edema lower extremities. I&O difficult at this time as Ferrari catheter has been removed. Continue Lasix. Monitor volume status, renal function. Continue NC oxygen. Currently close to baseline requirement of 3 L/min, although needing slightly more at 4 L. With some peripheral edema, some declining hemoglobin, monitor for again worsening volume status. May need higher dose of diuretic. Monitor strict I&O's as possible. Status: Acute Qualifiers: Heart failure chronicity: chronic Qualified Code(s): I50.32 - Chronic diastolic (congestive) heart failure Code(s): I50.30 - Unspecified diastolic (congestive) heart failure (4) Complete heart block: Appears to have been secondary to a reversible cause of hyperkalemia. Resolved. Continue Cardizem. Metoprolol is held. Status: Acute Code(s): I44.2 - Atrioventricular block, complete (5) Hyperkalemia: Resolved. Status: Acute Code(s): E87.5 - Hyperkalemia (6) Paroxysmal A-fib: Currently SR. Continue Cardizem, Eliquis. Status: Acute Code(s): I48.0 - Paroxysmal atrial fibrillation (7) Chronic anticoagulation: Status: Acute Code(s): Z79.01 - technician terminal and repeater (current) use of anticoagulants (8) Hypertension: At goal. Status: Acute Code(s): I10 - Essential (primary) hypertension (9) Type 2 diabetes mellitus: Continue SSI. A1c 7.9. Status: Acute Code(s): E11.9 - Type 2 diabetes mellitus without complications (10) Hypomagnesemia: Replace. Status: Acute Code(s): E83.42 - Hypomagnesemia Additional A&P Information Foreign body of right eye: 08/04. Small black speck noted at the inferior lateral outer edge of the right iris which could not be retrieved in ICU. Removed gently with a cotton swab. Acute metabolic encephalopathy: Resolved. Possible pyelonephritis: CT abdomen done on suggestive of possible mild pyelonephritis. Completed course of antibiotics. She is feeling well. Nausea: Resolved. Right upper quadrant ultrasound appreciated with normal CBD, no intrahepatic bile duct dilation. H/o Diastolic HF: Last ECHO shows Diastolic HF. Moderate MR Moderate TR Moderate pulmonary hypertension Depression Hypothyroidism, will go up on levothyroxine dose slightly, recheck TSH in 3 weeks. Attestations Medical Necessity Statement*: Continue admission for assessment management of acute on chronic anemia. Coding Level of Care Code Acute Custom Designer for g Fwd Diagnoses Anemia D64.9 Acute kidney injury superimposed on chronic kidney disease N17.9; N18.9 Diastolic heart failure I50.32 Heart failure chronicity: chronic Complete heart block I44.2 Hyperkalemia E87.5 Paroxysmal A-fib I48.0 Chronic anticoagulation Z79.01 Hypertension I10 Type 2 diabetes mellitus E11.9 Hypomagnesemia E83.42
[2019-08-05] MEDS: aspirin 81 mg EC Tablet PO (09:55)
[2019-08-05] MEDS: apixaban 5 mg Tablet PO ×2 (09:55→17:48)
[2019-08-05] MEDS: sucralfate 1 gm/10 mL Oral Liq UDC PO ×3 (10:07→22:02)
[2019-08-05] MEDS: FUROsemide 10 mg/mL SDV 2mL 20 MG IVP (10:07)
[2019-08-05 10:16] LABS: Glucose Point of Care 263 mg/dL (70-110)
[2019-08-05 11:25] LABS: H. Pylori IgG Antibody Negative (Negative)
[2019-08-05] MEDS: sodium chloride 0.9% 100 ML (14:13)
--- NOTE | 2019-08-05 15:41 | P.PN_ITS ---
Subjective Subjective: Interval history: Patient is getting transfusion due to drop in hemoglobin. Remains in sinus rhythm. Medications: Reviewed: Yes Medication Review Details: Current Medications Albuterol Sulfate (Albuterol) 2.5 mg INHALATION Q4H.RESPIRATORY PRN PRN Reason: shortness Albuterol/Ipratropium (Duoneb) 3 ml INHALATION Q6H.RESPIRATORY [facility] Last Admin: 08/01/19 14:04 Dose: 3 ml Documented by: Apixaban (Eliquis) 2.5 mg PO BID [facility] Last Admin: 08/01/19 16:54 Dose: 2.5 mg Documented by: Aspirin (Aspirin Ec) 81 mg PO DAILY [facility] Last Admin: 08/01/19 09:17 Dose: 81 mg Documented by: Atorvastatin Calcium (Lipitor) 20 mg PO BEDTIME [facility] Carbidopa/Levodopa (Sinemet) 1 each PO BID [facility] Last Admin: 08/01/19 17:05 Dose: 1 each Documented by: Cyanocobalamin (Vitamin B-12) 1,000 mcg IM UNK PRN PRN Reason: MONTHLY SHOT Dextrose (D50w) 25 ml IVP ONCE PRN; Protocol PRN Reason: hypoglycemia protocol Dextrose (D50w) 50 ml IVP PRN PRN; Protocol PRN Reason: hypoglycemia protocol Glucagon (Glucagen) 1 mg IM ONCE PRN; Protocol PRN Reason: Adult Acute Hypoglycemia Prot. Dextrose (D5w) 500 mls @ 100 mls/hr IV ONCE PRN; Protocol PRN Reason: Adult Acute Hypoglycemia Prot Imipenem/Cilastatin Sodium 250 (mg/ Sodium Chloride) 100 mls @ 200 mls/hr IV Q12H [facility]; Protocol Last Infusion: 08/01/19 09:47 Dose: Infused Documented by: Sodium Chloride (Sodium Chloride 0.9%) 1,000 mls @ 200 mls/hr IV .Q5H [facility] Last Admin: 08/01/19 17:58 Dose: 200 mls/hr Documented by: Vancomycin HCl 1,000 mg/ (Sodium Chloride) 250 mls @ 250 mls/hr IV Q48H [facility]; Protocol Last Admin: 07/31/19 18:33 Dose: Not Given Documented by: Dextrose (D5w) 500 mls @ 100 mls/hr IV ONCE PRN; Protocol PRN Reason: Adult Acute Hypoglycemia Prot Insulin Aspart (Novolog) 0 unit SUBCUT AC [facility]; Protocol Last Admin: 08/01/19 17:05 Dose: Not Given Documented by: Insulin Aspart (Novolog) 0 unit SUBCUT BEDTIME [facility]; Protocol Levothyroxine Sodium (Synthroid) 100 mcg PO DAILY [facility] Last Admin: 08/01/19 09:17 Dose: 100 mcg Documented by: Nitroglycerin (Nitrostat) 0.4 mg SUBLINGUAL Q5MIN PRN PRN Reason: Angina Ondansetron HCl (Zofran) 4 mg IVP Q8H PRN PRN Reason: vomiting, or N/V if npo Pantoprazole Sodium (Protonix) 40 mg IVP DAILY [facility] Last Admin: 08/01/19 09:17 Dose: 40 mg Documented by: Fluticasone/Salmeterol (Advair Diskus 250-50) 1 puff INHALATION BID.RESPIRATORY [facility] Last Admin: 08/01/19 08:10 Dose: 250 mcg Documented by: Vitals/I&O/Wt Last Vital Signs Temp 98.4 F 08/05/19 14:25 Pulse 68 08/05/19 14:25 Resp 15 08/05/19 14:25 BP 148/75 08/05/19 14:25 Pulse Ox 98 08/05/19 14:25 08/05/19 08/05/19 08/05/19 06:59 14:59 22:59 Intake Total 1080 / 1080 Output Total 1300 / 1300 Balance -220 / -220 Weight last 48 hrs Weight 212 lb 3.2 oz Weight 211 lb 12.8 oz Physical Exam Narrative: EXAM NARRATIVE: GENERAL: Patient is alert, awake and oriented x3. NECK: No jugular vein distension. HEENT: No cyanosis. No icterus, pallor. HEART: Regular S1 and S2. No murmur, rub or gallop. LUNGS: Clear to auscultate bilaterally. ABDOMEN: Soft, nontender and nondistended. Positive bowel sounds. No guarding, rebound or tenderness. CENTRAL NERVOUS SYSTEM: Grossly nonfocal. EXTREMITIES: Lower extremities without edema bilaterally. Urinary Catheter Management^: Ferrari: Cath Placed During This Visit: no Data : 08/05/19 04:10 08/05/19 04:10 Micro: Microbiology 07/31/19 12:50 Blood Culture - Final Blood NO GROWTH AFTER 5 DAYS 07/31/19 12:40 Blood Culture - Final Blood NO GROWTH AFTER 5 DAYS A&P Assessment and plan (1) Intermittent atrial fibrillation: Well controlled. Continue Regimen Status: Acute Code(s): I48.0 - Paroxysmal atrial fibrillation (2) Acute kidney injury superimposed on chronic kidney disease: Stable now. Status: Acute Code(s): N17.9 - Acute kidney failure, unspecified; N18.9 - Chronic kidney disease, unspecified (3) Diastolic heart failure: Well compensated. Continue current regimen Status: Acute Qualifiers: Heart failure chronicity: chronic Qualified Code(s): I50.32 - Chronic diastolic (congestive) heart failure Code(s): I50.30 - Unspecified diastolic (congestive) heart failure (4) Acute metabolic encephalopathy: Improved and stable. Status: Acute Code(s): G93.41 - Metabolic encephalopathy (5) Anemia: Patient hemoglobin is around 7. She is getting transfused as per m edicine. Status: Acute Code(s): D64.9 - Anemia, unspecified Additional A&P Information Status post bradycardia, requiring temporary pacer, currently resolved Diltiazem LA 90 mg PO daily. Discontinue the metoprolol May continue other measures Please make an appointment to be seen at [facility] in 1 week, after discharge, to be seen by the nurse practitioner I may see the patient in the office in 1 month. Attestations Medical Necessity Statement*: [place] continuation hospitalization for above defined care and transfusion for anemia Coding Level of Care Code Established Pt Acute Crosscutter Rolled Glass for Chg Fwd Patient Type Established History Expanded Problem Focused Exam Expanded Problem Focused Medical Decision Making Moderate Complexity Diagnoses Intermittent atrial fibrillation I48.0 Acute kidney injury superimposed on chronic kidney disease N17.9; N18.9 Diastolic heart failure I50.32 Heart failure chronicity: chronic Acute metabolic encephalopathy G93.41 Anemia D64.9
[2019-08-05 16:40] LABS: Glucose Point of Care 113 mg/dL (70-110)
[2019-08-05 20:59] LABS: Glucose Point of Care 222 mg/dL (70-110)
[2019-08-05] MEDS: atorvastatin 40 mg Tablet 20 MG PO (22:01)
[2019-08-06] VITALS (13 sets, daily range): BP systolic 147–157; BP diastolic 66–77; PULSE 65–81; RESP 14–20; TEMP 36.7–36.9; O2SAT 88–98
[2019-08-06] MEDS: ipratropium-albuterol 3 mL Neb INHALATION ×3 (02:19→16:07)
[2019-08-06 05:03] LABS: Basophils % 0.2 %; Eosinophils # 0.3 10^3/uL (0.0-0.8); Eosinophils % 4.8 %; Hematocrit 26.5 % (37.0-47.0); Hemoglobin 8.4 g/dL (11.5-15.3); Lymphocytes # 0.9 10^3/uL (0.8-4.8); Lymphocytes % 17.9 %; Mean Corpuscular HGB Conc 31.7 g/dL (30.0-36.0); Mean Corpuscular Hemoglobin 30.3 pg (28.0-34.0); Mean Corpuscular Volume 95.7 fL (81-99); Mean Platelet Volume 10.8 fL (7.4-10.4); Monocytes # 0.5 10^3/uL (0.2-0.9); Monocytes % 9.6 %; Neutrophils # 3.5 10^3/uL (1.8-7.7); Neutrophils % 67.1 %; Nucleated Red Blood Cells % 0 %; Platelet Count 167 10^3/cmm (130-400); Red Blood Count 2.77 10^6/uL (4.1-5.3); Red Cell Distribution Width 14.9 % (12.1-15.1); White Blood Count 5.2 10^3/uL (4.0-10.0)
[2019-08-06 05:35] LABS: Anion Gap 13.6 (5-19); Blood Urea Nitrogen 12 mg/dL (8-23); Calcium 9.3 mg/dL (8.5-10.5); Carbon Dioxide 33 mmol/L (22-29); Chloride 98 mmol/L (98-107); Glucose 134 mg/dL (74-106); Osmolality Calculated 290 mOsm/kg (285-295); Potassium 3.6 mmol/L (3.5-5.1); Sodium 141 mmol/L (136-145)
[2019-08-06 06:37] LABS: Glucose Point of Care 139 mg/dL (70-110)
[2019-08-06] MEDS: sucralfate 1 gm/10 mL Oral Liq UDC PO ×3 (06:55→17:44)
[2019-08-06] MEDS: magnesium hydroxide 30 mL UDC PO (06:55)
--- NOTE | 2019-08-06 07:12 | PC.NURSE ---
patient wanted something to help her have a bowel movement, milk of magnesia was ordered and it and prune juice was given about 7 am.
[2019-08-06] MEDS: FUROsemide 20 mg Tablet PO (08:22)
[2019-08-06] MEDS: gabapentin 300 mg Capsule PO ×2 (09:38→14:38)
[2019-08-06] MEDS: isosorbide mononitrate ER 30 mg Tablet PO (09:38)
[2019-08-06] MEDS: dilTIAZem ER (24HR) 120 mg Capsule PO (09:38)
[2019-08-06] MEDS: levothyroxine 112 mcg Tablet PO (09:38)
[2019-08-06] MEDS: pantoprazole DR 40 mg Tablet PO ×2 (09:38→17:44)
--- NOTE | 2019-08-06 09:48 | PM.PN ---
Subjective Subjective: Interval history: Patient denies any chest pain or palpitation. The events of the weekend were noted. Apparently the patient had possible GI bleed. The latest hemoglobin is 8.4 with hematocrit of 26.5. She is remaining in sinus rhythm. Heart rate is under control. The blood pressure slightly elevated. Denies any other specific complaints. Medications: Medication Review Details: Current Medications Albuterol Sulfate (Albuterol) 2.5 mg INHALATION Q4H.RESPIRATORY PRN PRN Reason: shortness Albuterol/Ipratropium (Duoneb) 3 ml INHALATION Q6H.RESPIRATORY [facility] Last Admin: 08/06/19 09:06 Dose: 3 ml Documented by: Apixaban (Eliquis) 5 mg PO BID [facility] Last Admin: 08/05/19 17:48 Dose: 5 mg Documented by: Aspirin (Aspirin Ec) 81 mg PO DAILY [facility] Last Admin: 08/05/19 09:55 Dose: 81 mg Documented by: Atorvastatin Calcium (Lipitor) 20 mg PO BEDTIME [facility] Last Admin: 08/05/19 22:01 Dose: 20 mg Documented by: Carbidopa/Levodopa (Sinemet) 1 each PO BID [facility] Last Admin: 08/06/19 09:39 Dose: 1 each Documented by: Cyanocobalamin (Vitamin B-12) 1,000 mcg IM UNK PRN PRN Reason: MONTHLY SHOT Dextrose (D50w) 25 ml IVP ONCE PRN; Protocol PRN Reason: hypoglycemia protocol Dextrose (D50w) 50 ml IVP PRN PRN; Protocol PRN Reason: hypoglycemia protocol Diltiazem HCl (Cardizem Cd (24hr)) 120 mg PO DAILY [facility] Last Admin: 08/06/19 09:38 Dose: 120 mg Documented by: Eye Irrigation Solution (Eye-Stream) 0 drop EYE-RIGHT BID [facility] Last Admin: 08/05/19 17:48 Dose: 1 drop Documented by: Furosemide (Lasix) 20 mg PO DAILY@0800 [facility] Last Admin: 08/06/19 08:22 Dose: 20 mg Documented by: Gabapentin (Neurontin) 300 mg PO TID [facility] Last Admin: 08/06/19 09:38 Dose: 300 mg Documented by: Glucagon (Glucagen) 1 mg IM ONCE PRN; Protocol PRN Reason: Adult Acute Hypoglycemia Prot. Dextrose (D5w) 500 mls @ 100 mls/hr IV ONCE PRN; Protocol PRN Reason: Adult Acute Hypoglycemia Prot Insulin Aspart (Novolog) 0 unit SUBCUT AC [facility]; Protocol Last Admin: 08/06/19 06:42 Dose: Not Given Documented by: Insulin Aspart (Novolog) 0 unit SUBCUT BEDTIME [facility]; Protocol Last Admin: 08/05/19 22:03 Dose: 3 unit Documented by: Isosorbide Mononitrate (Imdur) 30 mg PO DAILY [facility] Last Admin: 08/06/19 09:38 Dose: 30 mg Documented by: Levothyroxine Sodium (Synthroid) 112 mcg PO DAILY [facility] Last Admin: 08/06/19 09:38 Dose: 112 mcg Documented by: Magnesium Hydroxide (Milk Of Magnesia) 30 ml PO DAILY PRN PRN Reason: CONSTIPATION Last Admin: 08/06/19 06:55 Dose: 30 ml Documented by: Metoprolol Tartrate (Metoprolol Tartrate) 5 mg IV Q4H PRN PRN Reason: HEART RATE-HIGH Last Admin: 08/03/19 04:04 Dose: 5 mg Documented by: Ondansetron HCl (Zofran) 4 mg IVP Q8H PRN PRN Reason: vomiting, or N/V if npo Last Admin: 08/03/19 00:38 Dose: 4 mg Documented by: Pantoprazole Sodium (Protonix) 40 mg PO BID [facility] Last Admin: 08/06/19 09:38 Dose: 40 mg Documented by: Potassium Chloride (Klor-Con 10) 40 meq PO DAILY [facility] Last Admin: 08/06/19 09:38 Dose: 40 meq Documented by: Fluticasone/Salmeterol (Advair Diskus 250-50) 1 puff INHALATION BID.RESPIRATORY [facility] Last Admin: 08/06/19 09:06 Dose: 1 puff Documented by: Sucralfate (Carafate Oral Liq) 1 gm PO AC&BEDTIME [facility] Last Admin: 08/06/19 06:55 Dose: 1 gm Documented by: Vitals/I&O/Wt Last Vital Signs Temp 98.2 F 08/06/19 08:00 Pulse 76 08/06/19 09:19 Resp 18 08/06/19 09:10 BP 150/74 08/06/19 08:00 Pulse Ox 98 08/06/19 09:10 08/05/19 08/06/1908/06/20 22:59 06:59 14:59 Intake Total 950 / 2030 120 / 2150 360 / 360 Output Total 900 / 2200 1100 / 1100 Balance 50 / -170 120 / -50 -740 / -740 Weight last 48 hrs Weight 212 lb 3.2 oz Physical Exam Narrative: EXAM NARRATIVE: GENERAL: The patient is alert and oriented times three. Not in any acute distress. HEENT: moderate pallor, no icterus or lymphadenopathy. The pupils are equal. Oral cavity: There are no mucous membrane lesions. NECK: Trachea appears to be central. No masses noted. No JVD or thyromegaly appreciated. No carotid bruit. RESPIRATORY: Chest is symmetrical. No intercostals muscle retraction or any accessory muscle activation. There is no chest wall tenderness. Breath sounds are heard bilaterally. No rales or rhonchi heard. No evidence of any consolidation. BREASTS: Deferred. HEART: Heart sounds are normal with no S3 or S4. No significant murmurs. ABDOMEN: Vague tenderness in the epigastric area. No organomegaly appreciated. Bowel sounds are normally heard. : Deferred. RECTAL: Deferred. LYMPHATIC: No lymphadenopathy noted in the neck or groin. EXTREMITIES: 1+ edema both lower extremities no cyanosis. MUSCULOSKELETAL: No acute joint deformities or swelling SKIN: There are no significant rashes. NEUROPSYCHIATRIC: The patient is alert and oriented x3. Appears to be in a good mood. The higher functions are grossly within normal limits. No tremors or rigidity noted. Urinary Catheter Management^: Ferrari: Cath Placed During This Visit: no Data : 08/06/19 04:16 08/06/19 04:16 Micro: Microbiology 07/31/19 12:50 Blood Culture - Final Blood NO GROWTH AFTER 5 DAYS 07/31/19 12:40 Blood Culture - Final Blood NO GROWTH AFTER 5 DAYS A&P Assessment and plan (1) Intermittent atrial fibrillation: Patient is on long-term oral anticoagulation. Currently she is on Eliquis 5 mg p.o. twice daily. She is also on diltiazem CD 120 mg p.o. daily. Because of the high blood pressure and the relatively high heart rate, I may go up on the diltiazem CD to 180 mg p.o. daily Status: Acute Code(s): I48.0 - Paroxysmal atrial fibrillation (2) Anemia: Etiology is not clear. Patient may require GI work-up. Status: Acute Qualifiers: Anemia type: iron deficiency Iron deficiency anemia type: unspecified iron deficiency Qualified Code(s): D50.9 - Iron deficiency anemia, unspecified Code(s): D64.9 - Anemia, unspecified (3) Acute kidney injury superimposed on chronic kidney disease: Her kidney function is back to the baseline now. May continue on the current measures. Status: Acute Code(s): N17.9 - Acute kidney failure, unspecified; N18.9 - Chronic kidney disease, unspecified (4) Diastolic heart failure: Patient currently is compensated. May continue on the current medications Status: Acute Qualifiers: Heart failure chronicity: chronic Qualified Code(s): I50.32 - Chronic diastolic (congestive) heart failure Code(s): I50.30 - Unspecified diastolic (congestive) heart failure (5) Acute metabolic encephalopathy: Currently improved Status: Acute Code(s): G93.41 - Metabolic encephalopathy Additional A&P Information Status post bradycardia, requiring temporary pacer, currently resolved Diltiazem LA 180 mg PO daily. May continue other measures Please make an appointment to be seen at [facility] in 1 week, after discharge, to be seen by the nurse practitioner Discussed with the Dr. Alonzo I may see the patient in the office in 1 month. Attestations Medical Necessity Statement*: Disposition as per the primary. Coding Level of Care Code Acute Track Laying Supervisor for g Fwd Diagnoses Intermittent atrial fibrillation I48.0 Anemia D50.9 Anemia type: iron deficiency Iron deficiency anemia type: unspecified iron deficiency Acute kidney injury superimposed on chronic kidney disease N17.9; N18.9 Diastolic heart failure I50.32 Heart failure chronicity: chronic Acute metabolic encephalopathy G93.41
[2019-08-06] MEDS: aspirin 81 mg EC Tablet PO (11:36)
[2019-08-06] MEDS: apixaban 5 mg Tablet 2.5 MG PO ×2 (11:36→17:44)
[2019-08-06] MEDS: eye irrigation 30 mL Btl EYE-RIGHT ×2 (11:37→17:48)
[2019-08-06 11:38] LABS: Glucose Point of Care 231 mg/dL (70-110)
--- NOTE | 2019-08-06 14:55 | PC.SOCIAL ---
Update IMM Pg 2 of IMM was updated with patient and a copy was provided. She verbalized understanding and had no questions. Initialed, dated, and time copy in chart.
[2019-08-06 16:48] LABS: Glucose Point of Care 130 mg/dL (70-110)
--- NOTE | 2019-08-06 18:23 | PM.DCS ---
Discharge Providers Date of Admission: 07/30/19 18:31 Date of Discharge: 08/06/19 Attending Provider at Admission: Niko Caceres MD Attending Provider at Discharge: Silverio Dominguez Diagnoses at Discharge Discharge Diagnosis (1) Intermittent atrial fibrillation: Status: Acute (2) Anemia: Status: Acute Qualifiers: Anemia type: iron deficiency Iron deficiency anemia type: unspecified iron deficiency Qualified Code(s): D50.9 - Iron deficiency anemia, unspecified (3) Acute kidney injury superimposed on chronic kidney disease: Status: Acute (4) Diastolic heart failure: Status: Acute Qualifiers: Heart failure chronicity: chronic Qualified Code(s): I50.32 - Chronic diastolic (congestive) heart failure (5) Acute metabolic encephalopathy: Status: Acute Reason for Visit Reason for Visit: Reason For Visit: Bradycardia, hyperkalemia Hospital Course Hospital Course: 78-year-old lady with history of diastolic heart failure, chronic kidney disease, oxygen dependent COPD, usually on 3 L by nasal cannula, paroxysmal A. fib, history of pulmonary embolism, on chronic anticoagulation, MVR, TVR, pulmonary hypertension, DM 2, HTN, hypothyroidism who was transferred here from [facility] due to lethargy, found to be bradycardic, in complete heart block, with hyperkalemia, potassium 6.4. Acute kidney injury on chronic kidney disease. She was recently discharged from [facility] where she was treated for week for congestive heart failure. She received treatment for hyperkalemia with improvement. She required temporary pacing which was accomplished by transvenous pacemaker. Beta-michael was held. She is successfully weaned off pacing support with improvement in renal function and hyperkalemia. Multifactorial acute metabolic encephalopathy secondary to heart block, uremia, medications resolved. Required temporary dialysis support. Temporary BiPAP support. She was started on Cardizem by cardiology instead of metoprolol which is discontinued. She has since required potassium supplementation. ARB is discontinued at this time. She underwent treatment for complicated UTI with possible pyelonephritis with a course of Zosyn. She was continued on aspirin, anticoagulation. She had no recurrence of bradycardia. Hemoglobin was noted trending slowly down, with positive Hemoccult. Discussed with surgery, and she had upper and lower endoscopy several years ago with finding of gastritis, and diverticulosis. Per surgery the risks did not outweigh the benefits at this time to repeat endoscopy. She was maintained on twice a day PPI, sucralfate was added. H. pylori serology was negative, stool antigen is pending. Please follow-up. She is continued on anticoagulation, discussed surgery recommendations with patient and her family, as well as her current condition including gradual downtrend of hemoglobin. She did respond well to 1 unit PRBC transfusion. Given she has been doing well in the last several days, she is discharged home with home health, with follow-up hemoglobin in 3 days, with follow-up visit with surgery in 1 week, with follow-up with primary care provider, cardiology in office. Please monitor hemoglobin level, and resume full dose anticoagulation once it is safe. TSH will be rechecked in 3 weeks due to hypothyroidism, with levothyroxine dose adjusted to 112 mcg. Physical Exam Const: COMMON NORMALS: no apparent distress and oriented x3 HENMT: COMMON NORMALS: oropharynx normal Eye: OTHER: No scleral erythema. Neck/C-Spine: COMMON NORMALS: no JVD Resp: COMMON NORMALS: normal respiratory effort and clear to auscultation bilaterally AUSCULTATION: clear to auscultation bilaterally Cardio: COMMON NORMALS: no JVD, regular rhythm, S1 normal heart sound, S2 normal heart sound and no murmurs RHYTHM: regular rhythm HEART SOUNDS: S1 normal and S2 normal GI: COMMON NORMALS: normal to inspection, nondistended, normoactive bowel sounds, soft to palpation and non-tender PALPATION: Yes soft Extremity: COMMON NORMALS: no joint enlargement and no pedal edema Neuro: COMMON NORMALS: oriented x3 and moves all extremities Skin: COMMON NORMALS: no rashes or lesions noted GENERAL SKIN EXAM: no rashes or lesions noted Urinary Catheter Management^: Ferrari: Cath Placed During This Visit: no Discharge Data Data Completed and Pending: Completed Studies During Hospitalization Category Date Time Status CT abdomen pelvis wo con [id number] Rout ine Cat Scan 08/01/19 08:33 Completed CUSTOMS PORT DIRECTOR request for service Routin e Exams 07/31/19 00:24 Completed CUSTOMS PORT DIRECTOR request for service Routin e Exams 07/31/19 09:52 Completed XR chest 1V denia ble [id number] Stat Exams 07/30/19 20:28 Completed XR chest 1V denia ble [id number] Stat Exams 08/01/19 22:24 Completed CV echo complete* [id number] Routine Ultrasound 07/31/19 20:28 Completed US abdomen limite d [id number] Routine Ultrasound 08/03/19 11:22 Completed US renal BI* [id number] Routine Ultrasound 07/31/19 20:28 Completed Pending at discharge Category Date Time Status Helicobacter Pylo ri AG Stool Routin e Lab 08/06/19 08:15 Received T4, Thyroxine, To danielle Routine Lab 07/30/19 22:30 Received Labs from last 24 hours 08/06/19 08/06/19 08/06/19 16:27 11:06 06:32 WBC RBC Hgb Hct MCV MCH MCHC RDW Plt Count MPV Neut % (Auto) Lymph % (Auto) [place] % (Auto) Eos % (Auto) Baso % (Auto) Neut # (Auto) Lymph # (Auto) [place] # (Auto) Eos # (Auto) Baso # (Auto) Nucleated RBC % (a uto) Nucleated RBCs # Sodium Potassium Chloride Carbon Dioxide Anion Gap BUN Creatinine Glucose POC Glucose 130 231 139 Calculated Osmolal ity Calcium 08/06/19 08/06/19 08/05/19 04:16 04:16 20:48 WBC 5.2 RBC 2.77 L Hgb 8.4 L Hct 26.5 L MCV 95.7 MCH 30.3 MCHC 31.7 RDW 14.9 Plt Count 167 MPV 10.8 H Neut % (Auto) 67.1 Lymph % (Auto) 17.9 [place] % (Auto) 9.6 Eos % (Auto) 4.8 Baso % (Auto) 0.2 Neut # (Auto) 3.5 Lymph # (Auto) 0.9 [place] # (Auto) 0.5 Eos # (Auto) 0.3 Baso # (Auto) 0.0 Nucleated RBC % (a uto) 0 Nucleated RBCs # 0.0 Sodium 141 Potassium 3.6 Chloride 98 Carbon Dioxide 33 H Anion Gap 13.6 BUN 12 Creatinine 0.8 Glucose 134 H POC Glucose 222 Calculated Osmolal ity 290 Calcium 9.3 Vitals: Last Vital Signs Temp 98.5 F 08/06/19 15:40 Pulse 81 08/06/19 16:21 Resp 16 08/06/19 16:09 BP 157/77 08/06/19 15:40 Pulse Ox 88 L 08/06/19 16:21 Discharge Plan Discharge Patient Disposition: Home Health Service Condition: Stable Prescriptions: New levothyroxine 112 mcg capsule 112 mcg PO DAILY Qty: 30 RF: 0 sucralfate 100 mg/mL Suspension 1 g PO AC&BEDTIME Qty: 300 RF: 0 furosemide 20 mg Tablet 20 mg PO DAILY@0800 Qty: 30 RF: 0 omeprazole 40 mg capsule,delayed release(DR/EC) 40 mg PO BID Qty: 60 RF: 0 Klor-Con 10 10 mEq tablet extended release 20 meq PO DAILY Qty: 20 RF: 0 diltiazem HCl 180 mg capsule,extended release 24 hr 180 mg PO DAILY Qty: 30 RF: 0 Continued sennosides-docusate sodium 8.6-50 mg Tablet 1 tab-cap PO BID RF: 0 oxycodone-acetaminophen 10-325 mg tablet 1 tab PO Q8H PRN (Reason: Pain, Mild) RF: 0 carbidopa-levodopa 25-100 mg tablet 1 tab PO BID RF: 0 Novolog Flexpen U-100 Insulin 100 unit/mL (3 mL) insulin pen See Rx Instructions .ROUTE .COMPLEX RF: 0 Florastor 250 mg Capsule 500 mg PO BID RF: 0 lactulose 10 gram/15 mL solution 15 ml PO BID PRN (Reason: Constipation) RF: 0 magnesium hydroxide 2,400 mg/10 mL Suspension 0 ml PO DAILY PRN (Reason: Constipation) RF: 0 SSD 1 % cream 1 applic TOPICAL DAILY RF: 0 albuterol sulfate 2.5 mg /3 mL (0.083 %) solution for nebulization 2.5 mg continuous nebulization Q4H PRN (Reason: Shortness Of Breath) RF: 0 pravastatin 40 mg tablet 40 mg PO DAILY RF: 0 tizanidine 4 mg tablet 6 mg PO BEDTIME RF: 0 clonazepam 1 mg tablet 1 mg PO BEDTIME RF: 0 potassium chloride 10 mEq tablet extended release 20 meq PO DAILY RF: 0 pramipexole 0.5 mg tablet 0.5 mg PO BID RF: 0 trazodone 100 mg tablet 100 mg PO DAILY RF: 0 oxybutynin chloride 5 mg tablet 5 mg PO TID RF: 0 Proventil HFA 90 MCG 90 mcg inhalation Q4H RF: 0 Advair Diskus 250-50 mcg/dose Blister With Device 1 inh INHALATION BID RF: 0 isosorbide mononitrate 30 mg tablet extended release 24 hr 30 mg PO DAILY RF: 0 aspirin 81 mg Tablet,Delayed Release (Dr/Ec) 81 mg PO DAILY RF: 0 cyanocobalamin (vitamin B-12) 1,000 mcg/mL solution 1,000 mcg IM DIRECTED RF: 0 nitroglycerin 0.4 mg tablet, sublingual 0.4 mg sublingual Q5MIN PRN (Reason: Angina) RF: 0 gabapentin 300 mg capsule 300 mg PO TID RF: 0 allopurinol 300 mg tablet 300 mg PO BID RF: 0 Mag 64 64 mg Tablet,Delayed Release (Dr/Ec) 64 mg PO DAILY RF: 0 Zyrtec 10 mg Capsule 10 mg PO BEDTIME RF: 0 Lumigan 0.01 % drops 1 drp ophthalmic (eye) BEDTIME RF: 0 Calcium 500 + D 500 MG 500 mg PO DAILY RF: 0 Changed Lantus Solostar U-100 Insulin 100 unit/mL (3 mL) insulin pen 10 unit SUBCUT BEDTIME Qty: 0 RF: 0 Eliquis 5 mg tablet 2.5 mg PO BID Qty: 0 RF: 0 Discontinued famotidine 20 mg tablet 1 mg PO BID RF: 0 omeprazole 40 mg capsule,delayed release(DR/EC) 40 mg PO DAILY RF: 0 levothyroxine 100 mcg tablet 100 mcg PO DAILY RF: 0 metoprolol tartrate 50 mg tablet 50 mg PO BID RF: 0 bumetanide 1 mg tablet 1 mg PO BID RF: 0 hydralazine 50 mg tablet 50 mg PO TID RF: 0 losartan 100 MG 100 mg PO DAILY RF: 0 Discharge Orders: Discharge Order (Routine); Ordered 08/06/19 Ordered By: Silverio Dominguez Other Ambulatory Orders: Complete Blood Count w/Auto (Routine) Timeframe: 3 Days Location: Determined by Patient Ordered By: Silverio Dominguez Thyroid Stimulating Hormone (Routine) Timeframe: 3 Weeks Facility: [facility] - Location: Lab - Main Lab Ordered By: Silverio Dominguez Referrals: [facility] [Outside] Gucci Haddad MD [Physician] - 1 week (You have an appointment with on August 21 at 10:30. With a 10:15a.m. check-in. If, you any questions or need to reschedule. Please, call ) Vanessa Gregorio MD [Physician] - 1 month (Please, keep your appointment with on September 26 at 2:15p.m. If, you have any questions or need to reschedule. Please, [phone]) Terence Rogers [Family Provider] - 4-7 days (You have an follow-up appintment with on August 10 at 11:00a.m. If you need to reschedule, please [phone]) Gypsy Peres FNP [Nurse Practitioner] - 1 week (You have an follow-up appointment with Gypsy Peres at [facility] on August 13 at 10a.m. If, you need to reschedule, please call ) Discharge Diet: Cardiac and Diabetic Discharge Activity: Oxygen as instructed Patient Instructions: COPD, Diltiazem (By mouth), Furosemide (By mouth), Sucralfate (By mouth), Levothyroxine (By mouth), Potassium Chloride (By mouth), Omeprazole (By mouth), Atrial Fibrillation (DC), Chronic Kidney Disease (DC), Heart Block (DC), Hyperkalemia (DC), Bradycardia (DC), Hypertension (DC), Hypomagnesemia (DC), Anemia (DC), Metabolic Acidosis (GEN), COPD Stoplight Activity Restrictions/Additional Instructions: If you experience worsening shortness of breath, lightheadedness, chest pain, blood in stool or other abnormal symptoms, please seek medical attention. Discharge Attestations Time Spent in Discharge Care*: greater than 30 min Quality Metrics Clinical Quality Measures During this hospital stay, did patient experience: None Coding Level of Care Code Acute Warp Tying Machine Knotter for Chg Fwd Diagnoses Intermittent atrial fibrillation I48.0 Anemia D50.9 Anemia type: iron deficiency Iron deficiency anemia type: unspecified iron deficiency Acute kidney injury superimposed on chronic kidney disease N17.9; N18.9 Diastolic heart failure I50.32 Heart failure chronicity: chronic Acute metabolic encephalopathy G93.41
--- NOTE | 2019-08-06 19:35 | PC.NURSE ---
D/C central line Aseptic technique. Pt supine. instructed to hold breath until catheter removal. pressure applied for 7 mins to Right IJV. cleanse chlorhexidine swab. Applied pressure dressing. kris hematoma or bleeding noted. educated pt on s/s of site infection and dressing changes. Pt tolerated well. cath tip intact.
== END 2019-08-06 19:34 | disposition home health service (06) | DRG 308 ==
LOC: CSU 18:36 → ICU 19:41 → CSU 08-03 20:32
PROVIDERS: Internal Medicine Cardiovascular Disease; Internal Medicine Nephrology; Surgery; Admitting Provider Student in an Organized Health Care Education/Training Program; Family Provider Family Medicine; Visit Provider Internal Medicine
PROC: 5A1223Z Performance of Cardiac Pacing, Continuous (ICD-10-PCS; principal; 2019-07-31 00:20)
PROC: 0JHP3XZ Insertion of Tunneled Vascular Access Device into Left Lower Leg Subcutaneous Tissue and Fascia, Percutaneous Approach (ICD-10-PCS; principal; 2019-07-31 11:30)
DX: I44.2 Atrioventricular block, complete (principal); J96.92 Respiratory failure, unspecified with hypercapnia; N17.0 Acute kidney failure with tubular necrosis; G93.41 Metabolic encephalopathy; I13.0 Hypertensive heart and chronic kidney disease with heart failure and stage 1 through stage 4 chronic kidney disease, or unspecified chronic kidney disease; I50.32 Chronic diastolic (congestive) heart failure; E87.2 Acidosis; E87.5 Hyperkalemia; N18.9 Chronic kidney disease, unspecified; I48.0 Paroxysmal atrial fibrillation; Z79.01 Long term (current) use of anticoagulants; R00.1 Bradycardia, unspecified; E11.22 Type 2 diabetes mellitus with diabetic chronic kidney disease; E83.42 Hypomagnesemia; D63.1 Anemia in chronic kidney disease; E03.9 Hypothyroidism, unspecified; J44.9 Chronic obstructive pulmonary disease, unspecified; G89.29 Other chronic pain; M54.9 Dorsalgia, unspecified; Z87.891 Personal history of nicotine dependence; Z99.81 Dependence on supplemental oxygen; Z86.711 Personal history of pulmonary embolism; Z79.82 Long term (current) use of aspirin; F32.9 Major depressive disorder, single episode, unspecified
CPT/HCPCS: 12345; 33210; 33215; 36415; 36416; 36430; 36592; 36600; 51702; 71045; 74176; 76705; 76770; 80048; 80051; 80053; 80061; 81001; 82044; 82140; 82274; 82436; 82550; 82570; 82803; 82810; 82962; 83036; 83540; 83550; 83735; 83880; 83986; 84100; 84133; 84300; 84436; 84439; 84443; 84481; 84484; 85025; 85378; 86677; 86850; 86900; 87040; 87338; 87340; 87641; 87804; 90935; 93005; 93306; 94640; 94660; 96365; 96372; 96375; 97110; 97116; 97163; 97530; C1752; C1769; C1779; C1894; C9113; J0610; J0743; J1265; J1644; J1650; J1815; J1940; J2001; J2250; J2370; J2405; J3010; J3370; J3475; J3490; J7030; J7040; J7050; J7611; P9016; Q3014

== ENCOUNTER 2019-12-15 17:15 | Inpatient (IN) | payer MEDICARE, MEDICAID, SELFPAY ==
[2019-12-15] VITALS (15 sets, daily range): BP systolic 105–117; BP diastolic 56–70; PULSE 46–91; RESP 13–26; TEMP 36.6; O2SAT 94–100; BMI 33.6
--- NOTE | 2019-12-15 17:27 | ECG_ITS ---
Measurements Intervals [place] Rate: 52 P: 35 MO: 246 QRS: 48 QRSD: 121 T: 43 QT: 417 QTc: 389 SINUS BRADYCARDIA WITH FIRST DEGREE AV BLOCK WITH FREQUENT SUPRAVENTRICULAR PREMATURE COMPLEXES RIGHT ATRIAL ENLARGEMENT [0.3mV P WAVE] LEFT ATRIAL ENLARGEMENT [-0.15mV P WAVE IN V1/V2] RIGHT BUNDLE BRANCH BLOCK [120+ ms QRS DURATION, UPRIGHT V1, 40+ ms S IN I/aVL/V4/V5/V6] Compared to ECG 08/02/2019 12:30:40 First degree AV block now present Atrial abnormality now present Right bundle-branch block now present Atrial fibrillation no longer present T-wave abnormality no longer present Electronically Signed On 12-16-2019 19:04:14 CDT by Marbella Ardon M.D. [email or web address]
--- NOTE | 2019-12-15 17:29 | ED_ITS ---
HPI - Syncope General: Chief Complaint: Chest Pain Stated Complaint: BRADYCARDIA Time Seen by Provider: 12/15/19 17:18 History of Present Illness: HPI narrative: This patient is an 79-year-old female transferred here from [facility]. She was at her family's house this afternoon and noted that she was feeling very tired. She said she was sitting and kept falling asleep. She got up to walk across the yard and without warning had a syncopal episode. She does not think she injured anything in her fall. She does have pain across her back which she says is similar to when she has had a prior heart attack years ago. She does not have a stent. She never had any bypass surgery. She sees Dr. Gregorio. [facility] she was noted to have bradycardia with a rate of 50 but it is a bigeminal type of rate so the effective rate is probably more like 25 or 30. She is still having some pain across her back and still states that she does not feel well. She is alert, oriented, not diaphoretic. She says she is always short of breath and that is not any worse right now than normal. She was transferred here for admission and Dr. Girard is already aware of her. complaint: loss of consciousness Injuries sustained associated with event: none Associated symptoms: Deny abdominal pain, chest pain, fever(s), headache(s) or nausea Review of Systems General: Reports: 10 or more systems reviewed and unremarkable except in HPI and below Const: Denies: fever(s), chills, fatigue or malaise Eyes: Denies: change in vision ENMT: Denies: odynophagia Card: Denies: chest pain or swelling of feet/ankles GI: Denies: abdominal pain, nausea or vomiting : Denies: flank pain or difficulty voiding Musc: Denies: neck pain or back pain Skin/Breast: Denies: rash Neuro: Denies: headache(s), numbness in extremities or weakness in extremities Buzz/Lymph: Denies: easy bruising or easy bleeding PFS ED PFSH: Medical History Chronic anticoagulation Chronic back pain COPD (chronic obstructive pulmonary disease) Diastolic heart failure Former smoker Gout History of pulmonary embolism Hypertension Hypothyroidism Intermittent atrial fibrillation Normal coronary angiogram Cardiac angiogram done in September 2015 Paroxysmal A-fib Type 2 diabetes mellitus Surgical History H/O left knee surgery History of cholecystectomy Tubal ligation status Family History Father CAD (coronary artery disease) Family history of premature coronary artery disease Hypertension Mother Cancer Chronic kidney disease (CKD) Hypertension Sister Hyperlipidemia Hypertension Daughter No problems noted. Other Diabetes Denies family history of Clotting disorder Dementia Psychiatric illness Suicide Anesthesia complication Bleeding disorder Lung disease Stroke Social History Smoking and tobacco status: former smoker Quit status (tobacco): has quit using tobacco Second hand smoke exposure: No Smoking risk assessment/counseling performed?: No Alcohol intake: never Household members: family Housing: House Physical Exam Const: COMMON NORMALS: no acute distress, patient oriented x3, no limitations and alert GENERAL APPEARANCE: cooperative and comfortable HENMT: HEAD & SCALP: normal to inspection FACE & SINUS: normal facial exam Eye: GENERAL EYE: appearance normal, both eyes and all related structures Neck/C-Spine: COMMON NORMALS: supple and no meningeal signs Chest: COMMONS NORMALS: normal inspection of the chest Resp: COMMON NORMALS: normal respiratory effort, No use of accessory muscles and clear to auscultation bilaterally AUSCULTATION: clear to auscultation bilaterally Cardio: RATE: bradycardic RHYTHM: abnormal rhythm irregularly irregular GI: COMMON NORMALS: Normal to inspection, nondistended, normoactive bowel sounds present, Soft to palpation and non-tender INSPECTION: Yes normal to inspection AUSCULTATION: Yes normoactive bowel sounds PALPATION: Yes Soft to palpation Back/Pelvis: COMMON NORMALS: thoracic and lumbar spine normal to inspection Extremity: COMMON NORMALS: normal to inspection Neuro: COMMON NORMALS: patient oriented x3, moves all extremities, no focal motor deficits and no sensory deficits noted SENSORIUM/ORIENTATION: Yes alert MENINGEAL SIGNS: Yes no meningeal signs Psych: COMMON NORMALS: mental status grossly normal, cooperative and normal affect Skin: COMMON NORMALS: no rashes or lesions noted and turgor normal GENERAL SKIN EXAM: no rashes or lesions noted and turgor normal Course Vital Signs: Vital signs: Vital Signs Temperature 97.9 F 12/15/19 17:30 Pulse Rate 55 L 12/15/19 17:30 Respiratory Rate 17 12/15/19 17:30 Blood Pressure 105/70 12/15/19 17:30 Pulse Oximetry 99 12/15/19 17:30 MDM - Syncope MDM Narrative: Medical decision making narrative: Bradycardia, syncope, chest pain and back pain. Patient transferred here for admission to our ICU and cardiology consult. Dr. Gomez has been consulted and will see the patient. She stable at this time. Discharge Plan Discharge Prescriptions: No Action Eliquis 5 mg tablet 5 mg PO BID 30 Days Qty: 60 RF: 5 nitroglycerin 0.4 mg tablet, sublingual 0.4 mg SUBLINGUAL Q5M PRN (Reason: chest pain) 30 Days Qty: 30 RF: 3 isosorbide mononitrate 30 mg tablet extended release 24 hr 30 mg PO DAILY Qty: 90 RF: 3 sennosides-docusate sodium 8.6-50 mg Tablet 1 tab-cap PO BID RF: 0 oxycodone-acetaminophen 10-325 mg tablet 1 tab PO Q8H PRN (Reason: Pain, Mild) RF: 0 carbidopa-levodopa 25-100 mg tablet 1 tab PO BID RF: 0 Novolog Flexpen U-100 Insulin 100 unit/mL (3 mL) insulin pen See Rx Instructions .ROUTE .COMPLEX RF: 0 Florastor 250 mg Capsule 500 mg PO BID RF: 0 lactulose 10 gram/15 mL solution 15 ml PO BID PRN (Reason: Constipation) RF: 0 magnesium hydroxide 2,400 mg/10 mL Suspension 0 ml PO DAILY PRN (Reason: Constipation) RF: 0 albuterol sulfate 2.5 mg /3 mL (0.083 %) solution for nebulization 2.5 mg continuous nebulization Q4H PRN (Reason: Shortness Of Breath) RF: 0 pravastatin 40 mg tablet 40 mg PO DAILY RF: 0 tizanidine 4 mg tablet 6 mg PO BEDTIME RF: 0 clonazepam 1 mg tablet 1 mg PO BEDTIME RF: 0 pramipexole 0.5 mg tablet 0.5 mg PO BID RF: 0 trazodone 100 mg tablet 100 mg PO DAILY RF: 0 oxybutynin chloride 5 mg tablet 5 mg PO TID RF: 0 Proventil HFA 90 MCG 90 mcg inhalation Q4H RF: 0 Advair Diskus 250-50 mcg/dose Blister With Device 1 inh INHALATION BID RF: 0 cyanocobalamin (vitamin B-12) 1,000 mcg/mL solution 1,000 mcg IM DIRECTED RF: 0 nitroglycerin 0.4 mg tablet, sublingual 0.4 mg sublingual Q5MIN PRN (Reason: Angina) RF: 0 gabapentin 300 mg capsule 300 mg PO TID RF: 0 allopurinol 300 mg tablet 300 mg PO BID RF: 0 Mag 64 64 mg Tablet,Delayed Release (Dr/Ec) 64 mg PO DAILY RF: 0 Zyrtec 10 mg Capsule 10 mg PO BEDTIME RF: 0 Lumigan 0.01 % drops 1 drp ophthalmic (eye) BEDTIME RF: 0 Calcium 500 + D 500 MG 500 mg PO DAILY RF: 0 levothyroxine 112 mcg capsule 112 mcg PO DAILY Qty: 30 RF: 0 sucralfate 100 mg/mL Suspension 1 g PO AC&BEDTIME Qty: 300 RF: 0 furosemide 20 mg Tablet 20 mg PO DAILY@0800 Qty: 30 RF: 0 omeprazole 40 mg capsule,delayed release(DR/EC) 40 mg PO BID Qty: 60 RF: 0 Lantus Solostar U-100 Insulin 100 unit/mL (3 mL) insulin pen 10 unit SUBCUT BEDTIME Qty: 0 RF: 0 Klor-Con 10 10 mEq tablet extended release 20 meq PO DAILY Qty: 20 RF: 0 diltiazem HCl 180 mg capsule,extended release 24 hr 180 mg PO DAILY Qty: 30 RF: 0 Coding Level of Care Code ED Index Clerk for Patrizia Corral
[2019-12-15 18:02] LABS: Troponin(5th) Baseline 26 ng/L (0-10)
--- NOTE | 2019-12-15 18:09 | P.HP_ITS ---
Providers/Chief Complaint Primary Care Provider: Terence Rogers Chief Complaint: BRADYCARDIA History of Present Illness Vaibhav Ramsey is a 79 year old female with past medical history of diastolic heart failure, CKD with baseline creatinine of 2-2.3, COPD on 3 L oxygen, paroxysmal A. fib, pulmonary embolism on chronic anticoagulation with Eliquis, type 2 diabetes mellitus, hypertension, hypothyroidism who was last in hospital for 7 days and discharged on August [address] Gregorio last seen on December 09 was transferred to our hospital from [facility] where she had presented after having a syncopal event. Patient states she was talking to her son and then she passed out. Prior to passing out she complains of having some nausea, dizziness and flashing of lights in front of her and pain across her chest and shoulder blades. After that next she remembers is being in the hospital. Patient states she has been feeling very weak for last night. At [facility] patient was found to have a heart rate of 30 bpm with blood pressure of 91/32 mmHg after which she was given 2 shots of atropine and her heart rate improved to 50 bpm. Her blood work in the ER showed a creatinine of 1.04, sodium of 138 potassium of 4.5, BUN of 26, magnesium of 2.1, BNP of 413, troponin baseline of [address] head negative for any acute pathology, white count of 8.2, hemoglobin of 10.2, CPK of 67. She was transferred over to [facility] for further care. On my evaluation in the ER patient was AO x3 lying comfortably in bed complaining of mild dizziness but no nausea vomiting or difficulty in breathing more than her baseline. She states she saw Dr. Gregorio of December 09 and is able to remember our conversation with him and change in the medication. She states only change her medication is increasing the dose of Eliquis. She states she is compliant with her medications and takes them regularly. Review of Systems Const: Denies: fever(s), chills, body aches, change in appetite, malaise, night sweats, diaphoresis, change in sleep pattern, daytime sleepiness or snoring Eyes: Denies: change in vision, blurry vision, photophobia, eye discomfort or eye discharge ENMT: Denies: throat pain, enlarged tonsils, hoarseness, mouth pain, oral sores, dry mouth, tinnitus, nasal congestion or post nasal drip Card: Reports: chest pain, syncope, pre-syncope, dyspnea on exertion and orthopnea; Denies: palpitations, irregular heart rhythm, edema, swelling of feet/ankles, lightheadedness, leg pain with exertion or acrocyanosis Resp: Reports: dyspnea; Denies: productive cough, non-productive cough, wheezing, stridor, pain on inspiration, change in phlegm color, hemoptysis or chest congestion GI: Reports: nausea; Denies: abdominal pain, vomiting, hematemesis, coffee ground emesis, dysphagia, heartburn, diarrhea, constipation, bloating, GI cramping, change in bowel habits, pain on defecation, hematochezia or melena : Denies: flank pain, dysuria, urinary frequency, urinary urgency, urinary hesitancy, nocturia or hematuria Musc: Denies: neck pain, back pain, extremity pain, joint pain, joint swelling, joint redness, joint stiffness or limited range of motion Neuro: Reports: confusion; Denies: headache(s), numbness in extremities, weakness in extremities, sensory changes, lack of coordination, difficulty walking, frequent falls, dizziness, vertigo, Slurred speech present, difficulty communicating thoughts or seizure- like activity Psych: Denies: anxiety, depression, mood swings, panic attacks, hopelessness or irritability Endo: Denies: polyuria, polydipsia, tired all the time, cold intolerance, excessive sweating, flushing or heat intolerance Buzz/Lymph: Denies: easy bruising or easy bleeding All/Imm: Denies: tongue swelling, facial swelling or acute wheezing Medications/Allergies Home Medications Medication Instructions Recorded Confirmed Last Taken Type Advair Diskus 1 inh INHALATION BID 07/31/19 08/13/19 Unknown History Calcium 500 + D 500 mg PO DAILY 07/31/19 08/13/19 Unknown History Florastor 500 mg PO BID 07/31/19 08/13/19 Unknown History Lumigan 1 drp OPHTHALMIC (EYE) BEDTIME 07/31/19 08/13/19 Unknown History Mag 64 64 mg PO DAILY 07/31/19 08/13/19 Unknown History Novolog Flexpen U-100 Insulin See Rx Instructions .ROUTE .COMPLEX 07/31/19 08/13/19 Unknown History Proventil HFA 90 mcg INHALATION Q4H 07/31/19 08/13/19 Unknown History Zyrtec 10 mg PO BEDTIME 07/31/19 07/31/19 Unknown History albuterol sulfate 2.5 mg CONTINUOUS NEBULIZATION Q4H 07/31/19 08/13/19 Unknown History PRN allopurinol 300 mg PO BID 07/31/19 08/13/19 Unknown History carbidopa-levodopa 1 tab PO BID 07/31/19 08/13/19 Unknown History clonazepam 1 mg PO BEDTIME 07/31/19 08/13/19 Unknown History cyanocobalamin (vitamin B-12) 1,000 mcg IM DIRECTED 07/31/19 08/13/19 Unknown History gabapentin 300 mg PO TID 07/31/19 08/13/19 Unknown History lactulose 15 ml PO BID PRN 07/31/19 08/13/19 Unknown History magnesium hydroxide 0 ml PO DAILY PRN 07/31/19 08/13/19 Unknown History nitroglycerin 0.4 mg SUBLINGUAL Q5MIN PRN 07/31/19 08/13/19 Unknown History oxybutynin chloride 5 mg PO TID 07/31/19 08/13/19 Unknown History oxycodone-acetaminophen 1 tab PO Q8H PRN 07/31/19 08/13/19 Unknown History pramipexole 0.5 mg PO BID 07/31/19 08/13/19 Unknown History pravastatin 40 mg PO DAILY 07/31/19 08/13/19 Unknown History sennosides-docusate sodium 1 tab-cap PO BID 07/31/19 08/13/19 Unknown History tizanidine 6 mg PO BEDTIME 07/31/19 08/13/19 Unknown History trazodone 100 mg PO DAILY 07/31/19 08/13/19 Unknown History Lantus Solostar U-100 Insulin 10 unit SUBCUT BEDTIME #0 ml 08/06/19 08/13/19 Unknown Rx diltiazem HCl 180 mg PO DAILY #30 cap 08/06/19 08/13/19 Unknown Rx furosemide 20 mg PO DAILY@0800 #30 tab 08/06/19 08/13/19 Unknown Rx levothyroxine 112 mcg PO DAILY #30 cap 08/06/19 08/13/19 Unknown Rx omeprazole 40 mg PO BID #60 cap 08/06/19 08/13/19 Unknown Rx potassium chloride [Klor-Con 10] 20 meq PO DAILY #20 tab 08/06/19 08/13/19 Unknown Rx sucralfate 1 g PO AC&BEDTIME #300 ml 08/06/19 08/13/19 Unknown Rx isosorbide mononitrate 30 mg 30 mg PO DAILY #90 tab 09/04/19 Unknown Rx tablet,extended release 24 hr apixaban 5 mg tablet 5 mg PO BID 30 Days #60 tab 12/10/19 12/10/19 Unknown Rx nitroglycerin 0.4 mg sublingual 0.4 mg SUBLINGUAL Q5M PRN 30 Days 12/10/19 12/10/19 Unknown Rx tablet #30 tab Allergies Allergy/AdvReac Type Severity Reaction Status Date / Time codeine Allergy patient Verified 08/13/19 10:05 doesn't recall Iodinated Contrast Media Allergy renal Verified 08/13/19 10:05 disease naproxen Allergy renal Verified 08/13/19 10:05 disease Penicillins Allergy hives Verified 08/13/19 10:05 shellfish derived Allergy unknown Verified 08/13/19 10:05 Sulfa (Sulfonamide Allergy itching Verified 08/13/19 10:05 Antibiotics) tramadol AdvReac makes me Verified 08/13/19 10:05 crazy garlic Allergy unknown Uncoded 08/13/19 10:05 PFSH Acute PFSH: Medical History (Updated 12/15/19 @ 18:39 by Niko Caceres MD) Chronic anticoagulation Chronic back pain COPD (chronic obstructive pulmonary disease) Diastolic heart failure Former smoker Gout History of pulmonary embolism Hypertension Hypothyroidism Intermittent atrial fibrillation Normal coronary angiogram Cardiac angiogram done in September 2015 Paroxysmal A-fib Type 2 diabetes mellitus Surgical History H/O left knee surgery History of cholecystectomy Tubal ligation status Family History Father CAD (coronary artery disease) Family history of premature coronary artery disease Hypertension Mother Cancer Chronic kidney disease (CKD) Hypertension Sister Hyperlipidemia Hypertension Daughter No problems noted. Other Diabetes Denies family history of Clotting disorder Dementia Psychiatric illness Suicide Anesthesia complication Bleeding disorder Lung disease Stroke Social History Smoking and tobacco status: former smoker Quit status (tobacco): has quit using tobacco Second hand smoke exposure: No Smoking risk assessment/counseling performed?: No Alcohol intake: never Household members: family Housing: House Vitals/I&O/Wt Last Vital Signs Temp 97.9 F 12/15/19 17:30 Pulse 55 L 12/15/19 17:30 Resp 17 12/15/19 17:30 BP 105/70 12/15/19 17:30 Pulse Ox 99 12/15/19 17:30 Weight last 48 hrs Weight 88.904 kg Physical Exam Narrative: EXAM NARRATIVE: General: No acute distress, AO x3 HEENT: PERRLA, pupils bilaterally equal and reactive Chest: Normal vesicular breath sounds, no added sounds, equal good air entry bilaterally CVS: S1-S2 irregular, pansystolic murmur at apex and at fourth intercostal space parasternal, bradycardia Abdomen: Soft, nontender, no organomegaly, bowel sounds present Neuro: No focal deficits, no facial deformity, AO x3, power 4 /5 in all limbs Extremities: Bilateral lower limb swelling 2+ A&P Assessment and plan (1) Syncope and collapse: Status: Acute (2) Symptomatic advanced heart block: Status: Acute (3) Intermittent atrial fibrillation: Status: Acute (4) Diastolic heart failure: Status: Acute Qualifiers: Heart failure chronicity: chronic Qualified Code(s): I50.32 - Chronic diastolic (congestive) heart failure (5) Anemia: Status: Acute Qualifiers: Anemia type: iron deficiency Iron deficiency anemia type: unspecified iron deficiency Qualified Code(s): D50.9 - Iron deficiency anemia, unspecified (6) Chronic anticoagulation: Status: Acute (7) COPD (chronic obstructive pulmonary disease): Status: Acute (8) History of pulmonary embolism: Status: Acute (9) Type 2 diabetes mellitus: Status: Acute Additional A&P Information Admit to ICU. Syncope and collapse: Most likely because of advanced heart block: History of paroxysmal A. fib: We will hold off on rate limiting drug for now. Case discussed with Dr. Ardon. Start patient on dopamine at a fixed rate of 5. Have pacer pads make sure the patient along with cocaine daily. For now continue with Eliquis. If patient does not improve with dopamine would most likely need a pacemaker. Highly appreciate 's recommendation. Strict bedrest, fall precautions, seizure precautions. Check CBC, proBNP, BMP for electrolytes, TSH, procalcitonin, iron panel, INR, magnesium, d-dimer. Diastolic heart failure: Last echo from July 2019 shows an EF of 71% with no regional wall motion abnormality with thickened mitral valve and moderate to heavy mitral annular calcification, moderate mitral regurgitation, moderate tricuspid regurgitation, moderate PASP with pressure of 62 mmHg. Last Lexiscan from March 2019 shows an EF of 76% which was negative for ischemia. Check proBNP. At home patient is on Lasix 20 mg daily. Continue patient on IV Lasix 20 mg daily for now. Ferrari catheter. COPD: History of pulmonary embolism: Continue with Advair Eliquis. Lencho supplementation keeping saturation over 90%. Type 2 diabetes mellitus: Continue with home dose of Lantus 10 units at bedtime Start patient on insulin sliding scale at moderate dose. Check blood sugar every 6 hours for now as patient will be n.p.o. Anemia: Hemoglobin 11 today. Check iron panel. Continue with home dose of oral iron supplementation. We will monitor CBC daily. We will change medication as per the clinical course and results of the blood work. Full code. N.p.o. Eliquis will help with DVT prophylaxis as well Attestations Medical Necessity Statement*: More than 2 midnights for symptomatic bradycardia Time Spent in Patient Care: Greater than 35 minutes (>than 50% of time spent in counselling and/or direct pt care on unit) . Coding Level of Care Code Acute City Administrator for [facility] Diagnoses Syncope and collapse R55 Symptomatic advanced heart block I44.1 Intermittent atrial fibrillation I48.0 Diastolic heart failure I50.32 Heart failure chronicity: chronic Anemia D50.9 Anemia type: iron deficiency Iron deficiency anemia type: unspecified iron deficiency Chronic anticoagulation Z79.01 COPD (chronic obstructive pulmonary disease) J44.9 History of pulmonary embolism Z86.711 Type 2 diabetes mellitus E11.9
[2019-12-15 18:22] LABS: Basophils % 0.2 %; Eosinophils # 0.1 10^3/uL (0.0-0.8); Eosinophils % 0.9 %; Hematocrit 36.3 % (37.0-47.0); Lymphocytes # 1.8 10^3/uL (0.8-4.8); Lymphocytes % 16.9 %; Mean Corpuscular HGB Conc 30.3 g/dL (30.0-36.0); Mean Corpuscular Hemoglobin 30.6 pg (28.0-34.0); Mean Corpuscular Volume 101.1 fL (81-99); Mean Platelet Volume 12.2 fL (7.4-10.4); Monocytes # 0.5 10^3/uL (0.2-0.9); Monocytes % 4.8 %; Neutrophils # 8.3 10^3/uL (1.8-7.7); Neutrophils % 76.8 %; Nucleated Red Blood Cells % 0 %; Platelet Count 140 10^3/cmm (130-400); Red Blood Count 3.59 10^6/uL (4.1-5.3); Red Cell Distribution Width 13.6 % (12.1-15.1); White Blood Count 10.7 10^3/uL (4.0-10.0)
[2019-12-15 18:33] LABS: Magnesium 2.2 mg/dL (1.7-2.3)
[2019-12-15 18:35] LABS: D Dimer 0.89 ug/mIFEU (0-0.59)
[2019-12-15 18:43] LABS: Procalcitonin 0.08 ng/mL (0-0.5)
[2019-12-15 18:45] LABS: INR 1.04 (0.8-1.2)
[2019-12-15 18:46] LABS: Alanine Aminotransferase 9 U/L (0-33); Albumin Level 4.1 g/dL (3.5-5.2); Alkaline Phosphatase 108 IU/L (35-105); Anion Gap 16.4 (5-19); Aspartate Amino Transferase 23 U/L (0-32); Blood Urea Nitrogen 25 mg/dL (8-23); Calcium 10.1 mg/dL (8.5-10.5); Carbon Dioxide 25 mmol/L (22-29); Chloride 101 mmol/L (98-107); Globulin 2.6 g/dL (1.3-4.6); Glucose 188 mg/dL (65-115); NT Pro B Type Natriuretic Pept 585 pg/mL (0-450); Osmolality Calculated 286 mOsm/kg (285-295); Potassium 5.4 mmol/L (3.5-5.1); Sodium 137 mmol/L (136-145); Thyroid Stimulating Hormone 1.25 uIU/mL (0.27-4.20); Total Bilirubin 0.2 mg/dL (0.15-1.2); Total Protein 6.7 g/dL (6.6-8.7)
--- NOTE | 2019-12-15 19:06 | PM.CONSULT ---
Providers/Reason For Consult Consulting Physican/Specialty*: Cardiology Reason for Consult*: Syncope and collapse Symptomatic bradycardia Paroxysmal A. fib Attending Physician: Niko Caceres MD Primary Care Provider: Terence Rogers History of Present Illness History of Present Illness Cathryn Ramsey is a 79 year old female past medical history significant for paroxysmal atrial fibrillation on Cardizem p.o. history of diastolic dysfunction, history of kidney problem currently normal creatinine with hyperkalemia, history of pulmonary embolism and history of no significant coronary artery disease by angiogram was transferred from [facility] for bradycardia and syncope with heart rate fluctuating between 30s to 40s atropine was given which improved the heart rate to 50s. twelve-lead EKG was consistent with sinus bradycardia and frequent PACs. According with the patient today she passed out in her lawn as she was dizzy but trying to walk. She lost conscious for a few seconds but regained it back. It is the reason she went to ER. For the past few days she has been struggling with dizziness fatigue and shortness of breath. She called Dr. Gregorio's office when her medicines were adjusted but she was not able to tell us which medicine was adjusted. According to her she takes 180 mg of Cardizem every day for atrial fibrillation. Currently she is stable with heart rate into low 50s and systolic blood pressure more than 105. She denies any chest pain but admits to nausea. Review of Systems General: Reports: 10 or more systems reviewed and unremarkable except in HPI and below Const: Denies: fever(s), chills, body aches, change in appetite, fatigue, malaise, night sweats, diaphoresis, change in sleep pattern, daytime sleepiness or snoring Eyes: Denies: change in vision, blurry vision, photophobia, eye discomfort or eye discharge ENMT: Denies: throat pain, enlarged tonsils, odynophagia, hoarseness, mouth pain, oral sores, dry mouth, tinnitus, nasal congestion or post nasal drip Card: Reports: chest pain, syncope, pre-syncope, dyspnea on exertion and orthopnea; Denies: palpitations, irregular heart rhythm, edema, swelling of feet/ankles, lightheadedness, leg pain with exertion or acrocyanosis Resp: Reports: dyspnea; Denies: productive cough, non-productive cough, wheezing, stridor, pain on inspiration, change in phlegm color, hemoptysis or chest congestion GI: Reports: nausea; Denies: abdominal pain, vomiting, hematemesis, coffee ground emesis, dysphagia, heartburn, diarrhea, constipation, bloating, GI cramping, change in bowel habits, pain on defecation, hematochezia or melena : Denies: flank pain, difficulty voiding, dysuria, urinary frequency, urinary urgency, urinary hesitancy, nocturia or hematuria Musc: Denies: neck pain, back pain, extremity pain, joint pain, joint swelling, joint redness, joint stiffness or limited range of motion Skin/Breast: Denies: rash Neuro: Reports: confusion; Denies: headache(s), numbness in extremities, weakness in extremities, sensory changes, lack of coordination, difficulty walking, frequent falls, dizziness, vertigo, Slurred speech present, difficulty communicating thoughts or seizure-like activity Psych: Reports: sleeping more; Denies: anxiety, depression, mood swings, panic attacks, hopelessness or irritability Endo: Denies: polyuria, polydipsia, tired all the time, cold intolerance, excessive sweating, flushing or heat intolerance Buzz/Lymph: Denies: easy bruising or easy bleeding All/Imm: Denies: tongue swelling, facial swelling or acute wheezing Meds/Allergies Home Medications and Allergies Home Medications Medication Instructions Recorded Confirmed Last Taken Type Calcium 500 + D 500 mg PO DAILY 07/31/19 12/15/19 Unknown History Lumigan 1 drp OPHTHALMIC (EYE) BEDTIME 07/31/19 12/15/19 Unknown History Proventil HFA 1 - 2 puff INHALATION Q4H PRN 07/31/19 12/15/19 Unknown History Saccharomyces boulardii [Florastor] 500 mg PO BID 07/31/19 12/15/19 Unknown History Zyrtec 10 mg PO BEDTIME 07/31/19 12/15/19 Unknown History albuterol sulfate 2.5 mg CONTINUOUS NEBULIZATION Q4H 07/31/19 12/15/19 Unknown History PRN allopurinol 300 mg PO BID 07/31/19 12/15/19 12/15/19 History carbidopa-levodopa 1 tab PO BID 07/31/19 12/15/19 12/15/19 History clonazepam 1 mg PO BEDTIME 07/31/19 12/15/19 Unknown History cyanocobalamin (vitamin B-12) 1,000 mcg IM Q30D 07/31/19 12/15/19 12/12/19 History fluticasone propion-salmeterol 1 inh INHALATION BID 07/31/19 12/15/19 Unknown History [Advair Diskus] gabapentin 300 mg PO TID 07/31/19 12/15/19 12/15/19 History lactulose 15 ml PO BID PRN 07/31/19 12/15/19 Unknown History oxybutynin chloride 5 mg PO TID 07/31/19 12/15/19 Unknown History oxycodone-acetaminophen 1 tab PO Q8H PRN 07/31/19 12/15/19 Unknown History pramipexole See Rx Instructions .ROUTE .COMPLEX 07/31/19 12/15/19 Unknown History pravastatin 40 mg PO DAILY 07/31/19 12/15/19 Unknown History sennosides-docusate sodium 1 tab-cap PO BID PRN 07/31/19 12/15/19 Unknown History trazodone 100 mg PO BEDTIME 07/31/19 12/15/19 Unknown History diltiazem HCl 180 mg PO DAILY #30 cap 08/06/19 12/15/19 Unknown Rx levothyroxine 112 mcg PO DAILY #30 cap 08/06/19 12/15/19 Unknown Rx potassium chloride [Klor-Con 10] 20 meq PO DAILY #20 tab 08/06/19 12/15/19 12/15/19 Rx isosorbide mononitrate 30 mg 30 mg PO DAILY #90 tab 09/04/19 12/15/19 12/15/19 Rx tablet,extended release 24 hr apixaban 5 mg tablet 5 mg PO BID 30 Days #60 tab 12/10/19 12/15/19 12/15/19 Rx nitroglycerin 0.4 mg sublingual 0.4 mg SUBLINGUAL Q5M PRN 30 Days 12/10/19 12/15/19 Unknown Rx tablet #30 tab Lantus Solostar U-100 Insulin 34 unit SUBCUT BEDTIME 12/15/19 12/15/19 Unknown History dulaglutide [Trulicity] See Rx Instructions .ROUTE .COMPLEX 12/15/19 12/15/19 Unknown History fluticasone propionate [Flonase 2 spray INTRANASAL DAILY 12/15/19 12/15/19 Unknown History Allergy Relief] furosemide 40 mg PO BID 12/15/19 12/15/19 12/15/19 History losartan 100 mg PO DAILY 12/15/19 12/15/19 Unknown History magnesium hydroxide [Milk of See Rx Instructions .ROUTE .COMPLEX 12/15/19 12/15/19 Unknown History Magnesia] metoprolol tartrate 50 mg PO BID 12/15/19 12/15/19 Unknown History omeprazole 40 mg PO DAILY 12/15/19 12/15/19 Unknown History roflumilast [Daliresp] 250 mcg PO DAILY 12/15/19 12/15/19 Unknown History sucralfate See Rx Instructions .ROUTE .COMPLEX 12/15/19 12/15/19 Unknown History Allergies Allergy/AdvReac Type Severity Reaction Status Date / Time codeine Allergy patient Verified 08/13/19 10:05 doesn't recall Iodinated Contrast Media Allergy renal Verified 08/13/19 10:05 disease naproxen Allergy renal Verified 08/13/19 10:05 disease Penicillins Allergy hives Verified 08/13/19 10:05 shellfish derived Allergy unknown Verified 08/13/19 10:05 Sulfa (Sulfonamide Allergy itching Verified 08/13/19 10:05 Antibiotics) tramadol AdvReac makes me Verified 08/13/19 10:05 crazy garlic Allergy unknown Uncoded 08/13/19 10:05 PFSH Acute PFSH: Medical History Chronic anticoagulation Chronic back pain COPD (chronic obstructive pulmonary disease) Diastolic heart failure Former smoker Gout History of pulmonary embolism Hypertension Hypothyroidism Intermittent atrial fibrillation Normal coronary angiogram Cardiac angiogram done in September 2015 Paroxysmal A-fib Type 2 diabetes mellitus Surgical History H/O left knee surgery History of cholecystectomy Tubal ligation status Family History Father CAD (coronary artery disease) Family history of premature coronary artery disease Hypertension Mother Cancer Chronic kidney disease (CKD) Hypertension Sister Hyperlipidemia Hypertension Daughter No problems noted. Other Diabetes Denies family history of Clotting disorder Dementia Psychiatric illness Suicide Anesthesia complication Bleeding disorder Lung disease Stroke Social History Smoking and tobacco status: former smoker Quit status (tobacco): has quit using tobacco Second hand smoke exposure: No Smoking risk assessment/counseling performed?: No Alcohol intake: never Household members: family Housing: House Dietary Habits: Current diet type/program: diabetic, low salt and low carbohydrate Caffeine: No Exercise: What type of physical activity do you participate in?: none Safety: Seatbelt use: always Home Safety: Working smoke detector in home: No Fire extinguisher in home: No Carbon monoxide detector in home: No Vitals/I&O/Wt Last Vital Signs Temp 97.9 F 12/15/19 17:30 Pulse 55 L 12/15/19 17:30 Resp 17 12/15/19 17:30 BP 105/70 12/15/19 17:30 Pulse Ox 99 12/15/19 17:30 Weight last 48 hrs Weight 196 lb Physical Exam Narrative: EXAM NARRATIVE: GENERAL: Patient is alert, awake and oriented x3. NECK: No jugular vein distension. HEENT: No cyanosis. No icterus. No pallor. HEART: Regular S1 and S2. No murmur, rub or gallop. LUNGS: Clear to auscultate bilaterally. ABDOMEN: Soft, distended but nontender positive bowel sounds. No guarding, rebound or tenderness. CENTRAL NERVOUS SYSTEM: Grossly nonfocal. EXTREMITIES: Lower extremities without edema bilaterally. Urinary Catheter Management^: Ferrari: Cath Placed During This Visit: yes Urinary Catheter Date of Insertion: 12/15/19 A&P Assessment and plan (1) Type 2 diabetes mellitus: As per medicine Status: Acute (2) Syncope and collapse: Most likely secondary to symptomatic bradycardia. We will continue to monitor her closely currently she is in sinus rhythm with bigeminal frequent PACs followed by compensatory pause. She has slightly elevated potassium. IV fluids will be given, currently blood pressure is stable. She will be monitored on telemetry. Status: Acute (3) Diastolic heart failure: Appears to be well compensated. Status: Acute Qualifiers: Heart failure chronicity: chronic Qualified Code(s): I50.32 - Chronic diastolic (congestive) heart failure (4) Acute on chronic renal failure: Currently stable and not in renal failure Status: Acute Qualifiers: Acute renal failure type: unspecified Chronic kidney disease stage: stage 2 (mild) Qualified Code(s): N17.9 - Acute kidney failure, unspecified; N18.2 - Chronic kidney disease, stage 2 (mild) (5) Chronic anticoagulation: She is on Eliquis for history of pulmonary embolism and A. fib Status: Acute (6) Bradycardia: Patient has symptomatic bradycardia currently she has sinus rhythm with multiple PACs. We will discontinue Cardizem. We will put her on dopamine if she blood is down. If requires for hemodynamics we may will proceed with temporary pacemaker currently she is stable with blood pressure and heart rate twice therefore we will monitor her in ICU. Status: Acute Consult Attestations Medical Necessity Statement: Patient require continuation hospitalization in the ICU. I am expecting her stay to cross more than 2 midnights Coding Level of Care Code New Pt Acute Fleet Driver for Marlenyg Fwd Patient Type New History Expanded Problem Focused Exam Expanded Problem Focused Medical Decision Making Moderate Complexity Diagnoses Type 2 diabetes mellitus E11.9 Syncope and collapse R55 Diastolic heart failure I50.32 Heart failure chronicity: chronic Acute on chronic renal failure N17.9; N18.2 Acute renal failure type: unspecified Chronic kidney disease stage: stage 2 (mild) Chronic anticoagulation Z79.01 Bradycardia R00.1
[2019-12-15 19:15] LABS: Iron 60 ug/dL (37-145); Percent Saturation 28.8 % (20-50); Total Iron Binding Capacity 208 mcg/dl; Unsaturated Iron Binding 148 ug/dL (112-347)
--- NOTE | 2019-12-15 19:27 | ECG_ITS ---
Measurements Intervals [place] Rate: 53 P: 51 WV: 242 QRS: 59 QRSD: 121 T: 50 QT: 414 QTc: 391 SINUS BRADYCARDIA WITH FIRST DEGREE AV BLOCK WITH FREQUENT SUPRAVENTRICULAR PREMATURE COMPLEXES POSSIBLE RIGHT ATRIAL ENLARGEMENT [0.25mV P WAVE] POSSIBLE LEFT ATRIAL ENLARGEMENT [-0.1mV P WAVE IN V1/V2] RIGHT BUNDLE BRANCH BLOCK [120+ ms QRS DURATION, UPRIGHT V1, 40+ ms S IN I/aVL/V4/V5/V6] POSSIBLE ANTERIOR MYOCARDIAL INFARCTION , PROBABLY OLD [30 ms Q WAVE IN V3/V4, OR R < 0.2 mV IN V4] Compared to ECG 08/02/2019 12:30:40 First degree AV block now present Right bundle-branch block now present Myocardial infarct finding now present Atrial fibrillation no longer present T-wave abnormality no longer present Electronically Signed On 12-16-2019 19:07:00 CDT by Marbella Ardon M.D. [id number]
[2019-12-15 19:54] LABS: Troponin 5 2HR 28.52 ng/L (0-10); Troponin 5 2HR Delta 2.52 ABS# (0-10)
[2019-12-15 20:56] LABS: Glucose Point of Care 169 mg/dL (70-110)
[2019-12-15] MEDS: DOPamine drip 400 MG/250 ML PREMIX 16.7 MG IV (20:57)
[2019-12-15] MEDS: insulin regular-human 10 UNIT in SYRINGE 1 EACH IVP (20:58)
[2019-12-15] MEDS: dextrose 50% syringe 50 mL IVP (20:58)
[2019-12-15] MEDS: gabapentin 300 mg Capsule PO (20:59)
[2019-12-15] MEDS: CLONazepam 1 mg Tablet PO (20:59)
[2019-12-15] MEDS: oxybutynin 5 mg Tablet PO (20:59)
[2019-12-15] MEDS: atorvastatin 40 mg Tablet 20 MG PO (20:59)
[2019-12-15] MEDS: insulin glargine 100 units/1 mL 10 UNIT SUBCUT (21:05)
[2019-12-15 23:58] LABS: Potassium 4.5 mmol/L (3.5-5.1)
[2019-12-15 23:59] LABS: Troponin 5 6HR 28.46 ng/L (0-10); Troponin 5 6HR Delta 2.46 ng/L (0-12)
[2019-12-16] VITALS (24 sets, daily range): BP systolic 95–119; BP diastolic 42–65; PULSE 78–90; RESP 10–30; TEMP 36.4–37; O2SAT 95–100; BMI 33.6
[2019-12-16 02:58] LABS: Glucose Point of Care 129 mg/dL (70-110)
[2019-12-16] MEDS: oxyCODONE-APAP 10-325 mg Tablet 1 TAB PO ×2 (04:34→20:59)
[2019-12-16 04:49] LABS: Basophils # 0.1 10^3/uL (0.0-0.1); Basophils % 0.4 %; Eosinophils # 0.1 10^3/uL (0.0-0.8); Eosinophils % 1.2 %; Hematocrit 38.2 % (37.0-47.0); Hemoglobin 11.8 g/dL (11.5-15.3); Lymphocytes # 1.9 10^3/uL (0.8-4.8); Lymphocytes % 16.6 %; Mean Corpuscular HGB Conc 30.9 g/dL (30.0-36.0); Mean Corpuscular Hemoglobin 30.8 pg (28.0-34.0); Mean Corpuscular Volume 99.7 fL (81-99); Mean Platelet Volume 11.7 fL (7.4-10.4); Monocytes % 8.5 %; Neutrophils # 8.3 10^3/uL (1.8-7.7); Neutrophils % 72.6 %; Nucleated Red Blood Cells % 0 %; Platelet Count 179 10^3/cmm (130-400); Red Blood Count 3.83 10^6/uL (4.1-5.3); Red Cell Distribution Width 13.3 % (12.1-15.1); White Blood Count 11.5 10^3/uL (4.0-10.0)
[2019-12-16 07:39] LABS: Glucose Point of Care 185 mg/dL (70-110)
[2019-12-16 07:47] LABS: Alanine Aminotransferase 14 U/L (0-33); Albumin Level 3.8 g/dL (3.5-5.2); Alkaline Phosphatase 106 IU/L (35-105); Anion Gap 15.3 (5-19); Aspartate Amino Transferase 19 U/L (0-32); Blood Urea Nitrogen 27 mg/dL (8-23); Calcium 9.6 mg/dL (8.5-10.5); Carbon Dioxide 25 mmol/L (22-29); Chloride 101 mmol/L (98-107); Globulin 2.4 g/dL (1.3-4.6); Glucose 176 mg/dL (65-115); Osmolality Calculated 285 mOsm/kg (285-295); Phosphorus 4.8 mg/dL (2.5-4.5); Potassium 4.3 mmol/L (3.5-5.1); Sodium 137 mmol/L (136-145); Total Bilirubin 0.2 mg/dL (0.15-1.2); Total Protein 6.2 g/dL (6.6-8.7)
[2019-12-16 07:50] LABS: Glucose Urine UA Norm (Normal); Protein Urine 1+ (Negative); Specific Gravity, Urine 1.015 (1.005-1.030); Urine Color Yellow (Yellow); pH Urine 5 (5-7)
[2019-12-16 07:51] LABS: Add Urine Microscopic? YES; Bilirubin Urine Neg (NEGATIVE); Blood Urine Neg (Negative); Ketones Urine 1+ (Negative); Leukocyte Esterase Urine 2+ (Negative); Nitrate Urine Negative (Negative); Urobilinogen Urine Norm (Negative)
[2019-12-16 07:56] LABS: Squamous Epithelial Cell Urine 0-4 (0-5); WBC Urine 80-100 /hpf (0-5)
[2019-12-16 07:57] LABS: Bacteria Urine 4+; Mucus Urine 1+
[2019-12-16 07:58] LABS: Add Urine Culture? Yes
[2019-12-16] MEDS: gabapentin 300 mg Capsule PO ×3 (08:53→21:01)
[2019-12-16] MEDS: pramipexole 0.25 mg Tablet 0.5 MG PO ×2 (08:53→19:20)
[2019-12-16] MEDS: pantoprazole DR 40 mg Tablet PO ×2 (08:53→19:22)
[2019-12-16] MEDS: allopurinol 300 mg Tablet PO ×2 (08:53→19:21)
[2019-12-16] MEDS: apixaban 5 mg Tablet PO ×2 (08:53→19:22)
[2019-12-16] MEDS: oxybutynin 5 mg Tablet PO ×3 (08:53→21:01)
[2019-12-16] MEDS: levothyroxine 112 mcg Tablet PO (08:53)
[2019-12-16] MEDS: carbidopa-levodopa 25-100mg Tablet 1 EACH PO ×2 (08:53→19:24)
[2019-12-16] MEDS: isosorbide mononitrate ER 30 mg Tablet PO (08:53)
--- NOTE | 2019-12-16 09:06 | ECG_ITS ---
Measurements Intervals [place] Rate: 88 P: -3 NM: 280 QRS: 52 QRSD: 142 T: 4 QT: 395 QTc: 479 SINUS RHYTHM WITH FIRST DEGREE AV BLOCK RIGHT BUNDLE BRANCH BLOCK [120+ ms QRS DURATION, UPRIGHT V1, 40+ ms S IN I/aVL/V4/V5/V6] Compared to ECG 08/02/2019 12:30:40 First degree AV block now present Right bundle-branch block now present Atrial fibrillation no longer present T-wave abnormality no longer present Electronically Signed On 12-16-2019 19:07:28 CDT by Marbella Ardon M.D. [id number]
--- NOTE | 2019-12-16 09:23 | P.PN_ITS ---
Vitals/I&O/Wt Last Vital Signs Temp 97.9 F 12/15/19 17:30 Pulse 88 12/16/19 08:30 Resp 16 12/16/19 08:30 BP 99/46 12/16/19 04:00 Pulse Ox 98 12/16/19 08:30 12/15/19 12/16/19 12/16/19 22:59 06:59 14:59 Output Total 1000 / 1000 Balance -1000 / -1000 Weight last 48 hrs Weight 88.904 kg Weight 88.904 kg Physical Exam Narrative: EXAM NARRATIVE: General: No acute distress, AO x3 HEENT: PERRLA, pupils bilaterally equal and reactive Chest: Normal vesicular breath sounds, no added sounds, equal good air entry bilaterally CVS: S1-S2 irregular, pansystolic murmur at apex and at fourth intercostal space parasternal, bradycardia Abdomen: Soft, nontender, no organomegaly, bowel sounds present Neuro: No focal deficits, no facial deformity, AO x3, power 4 /5 in all limbs Extremities: Bilateral lower limb swelling 2+ Urinary Catheter Management^: Ferrari: Cath Placed During This Visit: yes Urinary Catheter Date of Insertion: 12/15/19 Data : 12/16/19 04:31 12/16/19 07:19 A&P Assessment and plan (1) Syncope and collapse: Status: Acute (2) Symptomatic advanced heart block: Status: Acute (3) Intermittent atrial fibrillation: Status: Acute (4) Diastolic heart failure: Status: Acute Qualifiers: Heart failure chronicity: chronic Qualified Code(s): I50.32 - Chronic diastolic (congestive) heart failure (5) Anemia: Status: Acute Qualifiers: Anemia type: iron deficiency Iron deficiency anemia type: unspecified iron deficiency Qualified Code(s): D50.9 - Iron deficiency anemia, unspecified (6) Chronic anticoagulation: Status: Acute (7) COPD (chronic obstructive pulmonary disease): Status: Acute (8) History of pulmonary embolism: Status: Acute (9) Type 2 diabetes mellitus: Status: Acute (10) UTI (urinary tract infection): Status: Acute Additional A&P Information Syncope and collapse: Most likely because of advanced heart block: History of paroxysmal A. fib: Results of proBNP, basic metabolic panel, d-dimer, procalcitonin appreciated. Overnight patient's potassium was mildly elevated to 5.4 which was treated with D50 and 10 units insulin. Potassium is normalized. Patient has been maintained on 5 of dopamine since night. Her heart rate is better now. EKG done suggestive of prolonged HI with a right bundle branch block with heart rate of 88 bpm, regular. Plan to wean off dopamine while monitoring her heart rate. Continue holding off on diltiazem and metoprolol. Continue with Eliquis 5 mg twice daily. If patient's heart rate maintains we will get out of bed to chair. Diastolic heart failure: Last echo from July 2019 shows an EF of 71% with no regional wall motion abnormality with thickened mitral valve and moderate to heavy mitral annular calcification, moderate mitral regurgitation, moderate tricuspid regurgitation, moderate PASP with pressure of 62 mmHg. Last Lexiscan from March 2019 shows an EF of 76% which was negative for ischemia. proBNP stable. Euvolemic. Overall patient is thousand cc negative. Continue with home dose of Lasix 20 mg daily. COPD: History of pulmonary embolism: Continue with Advair, Flonase. Oxygen supplementation keeping saturation over 90% Type 2 diabetes mellitus: Continue with home dose of Lantus 10 units at bedtime Carb consistent cardiac diet Insulin sliding scale at moderate dose. Before meals and at bedtime. UTI: Patient complaining of mild dysuria. Urine study positive for leuk esterase and WBCs. We will await urine culture. For now start on ceftriaxone Anemia: Hemoglobin 11 today. Check iron panel. Continue with home dose of oral iron supplementation. We will monitor CBC daily. Continue chronic medications like allopurinol, atorvastatin, Sinemet, Klonopin, Neurontin, levothyroxine, oxybutynin, pramipexole, Roflumilast, trazodone. TSH stable. Full code. Cardiac diet carb consistent Eliquis will help with DVT prophylaxis as well Attestations Medical Necessity Statement*: Syncope, symptomatic bradycardia Time Spent in Patient Care: Greater than 35 minutes (>than 50% of time spent in counselling and/or direct pt care on unit) . Coding Level of Care Code Acute Invasive Cardiovascular Technologist for Patrizia Corral Diagnoses Syncope and collapse R55 Symptomatic advanced heart block I44.1 Intermittent atrial fibrillation I48.0 Diastolic heart failure I50.32 Heart failure chronicity: chronic Anemia D50.9 Anemia type: iron deficiency Iron deficiency anemia type: unspecified iron deficiency Chronic anticoagulation Z79.01 COPD (chronic obstructive pulmonary disease) J44.9 History of pulmonary embolism Z86.711 Type 2 diabetes mellitus E11.9 UTI (urinary tract infection) N39.0
[2019-12-16] MEDS: cefTRIAXone 1,000 MG in sodium chloride 0.9% (plus) 50 ML 100 MG IV (10:55)
--- NOTE | 2019-12-16 11:08 | PC.NURSE ---
ANTIBIOTIC LATE DUE TO FAMILY DYNAMIC/FAMILY PHONE CALLS...NURSE UNABLE TO ADMINISTRATION ON TIME
--- NOTE | 2019-12-16 15:16 | P.PN_ITS ---
Subjective Subjective: Interval history: Heart rate is better today she is off the dopamine. No more significant bradycardia heart rate hovers around 80s. Vitals/I&O/Wt Last Vital Signs Temp 98.6 F 12/16/19 12:00 Pulse 79 12/16/19 14:12 Resp 16 12/16/19 14:12 BP 115/65 12/16/19 12:00 Pulse Ox 97 12/16/19 14:12 12/16/19 12/16/19 12/16/19 06:59 14:59 22:59 Intake Total 750.988 / 750.988 Output Total 1000 / 1000 650 / 650 Balance -1000 / -1000 100.988 / 100.988 Weight last 48 hrs Weight 196 lb Weight 196 lb Physical Exam Narrative: EXAM NARRATIVE: GENERAL: Patient is alert, awake and oriented x3. NECK: No jugular vein distension. HEENT: No cyanosis. No icterus. No pallor. HEART: Regular S1 and S2. No murmur, rub or gallop. LUNGS: Clear to auscultate bilaterally. ABDOMEN: Soft, distended but nontender positive bowel sounds. No guarding, rebound or tenderness. CENTRAL NERVOUS SYSTEM: Grossly nonfocal. EXTREMITIES: Lower extremities without edema bilaterally. Urinary Catheter Management^: Ferrari: Cath Placed During This Visit: yes Reason for Continuing Indwelling Catheter: Accurate Measurement of Urinary Output in Critically Ill Patients Urinary Catheter Date of Insertion: 12/15/19 Data : 12/16/19 04:31 12/16/19 07:19 A&P Assessment and plan (1) Type 2 diabetes mellitus: As per medicine Status: Acute (2) Syncope and collapse: Bradycardia is improved. Most likely syncope was secondary to bradycardia Status: Acute (3) Diastolic heart failure: Appears to be well compensated. Status: Acute Qualifiers: Heart failure chronicity: chronic Qualified Code(s): I50.32 - Chronic diastolic (congestive) heart failure (4) Acute on chronic renal failure: Stable and normal kidney function now Status: Acute Qualifiers: Acute renal failure type: unspecified Chronic kidney disease stage: stage 2 (mild) Qualified Code(s): N17.9 - Acute kidney failure, unspecified; N18.2 - Chronic kidney disease, stage 2 (mild) (5) Chronic anticoagulation: She is on Eliquis for history of pulmonary embolism and A. fib Status: Acute (6) Bradycardia: Bradycardia is improved patient has more normal heart rate. Status: Acute (7) Paroxysmal A-fib: We will add metoprolol at low-dose. We will watch her on the telemetry. Status: Acute Attestations Medical Necessity Statement*: Requires Continuation hospitalization for above defined care Coding Level of Care Code Established Pt Acute Math Specialist for Chg Fwd Patient Type Established History Expanded Problem Focused Exam Expanded Problem Focused Medical Decision Making Moderate Complexity Diagnoses Type 2 diabetes mellitus E11.9 Syncope and collapse R55 Diastolic heart failure I50.32 Heart failure chronicity: chronic Acute on chronic renal failure N17.9; N18.2 Acute renal failure type: unspecified Chronic kidney disease stage: stage 2 (mild) Chronic anticoagulation Z79.01 Bradycardia R00.1 Paroxysmal A-fib I48.0
[2019-12-16] MEDS: metoprolol tartrate 25 mg Tablet 12.5 MG PO (15:33)
[2019-12-16 16:20] LABS: Glucose Point of Care 199 mg/dL (70-110)
[2019-12-16 16:20] LABS: Glucose Point of Care 159 mg/dL (70-110)
--- NOTE | 2019-12-16 17:26 | PC.NURSE ---
Due to the large amount of phone calls from 8 different family members, it has not been decided, by the patient, that Jonathan Ramsey, petra be the family point of contact for the patient; A passcode has been established of [id number] and given to Jonathan; This RN along with PAULINE, RN discussed this information with the patient;
--- NOTE | 2019-12-16 19:02 | PC.NURSE ---
multiple family call today for information after grandson and daughter upset want to be only one for information talked with pt as witness to her nurse Carli. and pt request that main person of DPOA son lasha to be main contact. password set up
[2019-12-16 20:55] LABS: Glucose Point of Care 178 mg/dL (70-110)
[2019-12-16] MEDS: CLONazepam 1 mg Tablet PO (20:57)
[2019-12-16] MEDS: atorvastatin 40 mg Tablet 20 MG PO (20:58)
[2019-12-16] MEDS: trazodone 100 mg Tablet PO (20:59)
[2019-12-16] MEDS: insulin glargine 100 units/1 mL 10 UNIT SUBCUT (21:01)
[2019-12-17] VITALS (19 sets, daily range): BP systolic 83–146; BP diastolic 43–62; PULSE 85–106; RESP 12–27; TEMP 36.3–36.9; O2SAT 97–100
[2019-12-17 04:58] LABS: Basophils % 0.3 %; Eosinophils # 0.2 10^3/uL (0.0-0.8); Eosinophils % 2.7 %; Hemoglobin 9.9 g/dL (11.5-15.3); Lymphocytes # 1.7 10^3/uL (0.8-4.8); Lymphocytes % 19.7 %; Mean Corpuscular HGB Conc 30.9 g/dL (30.0-36.0); Mean Corpuscular Hemoglobin 31.1 pg (28.0-34.0); Mean Corpuscular Volume 100.6 fL (81-99); Mean Platelet Volume 11.7 fL (7.4-10.4); Monocytes # 0.7 10^3/uL (0.2-0.9); Neutrophils % 68.8 %; Nucleated Red Blood Cells % 0 %; Platelet Count 124 10^3/cmm (130-400); Red Blood Count 3.18 10^6/uL (4.1-5.3); Red Cell Distribution Width 13.4 % (12.1-15.1); White Blood Count 8.6 10^3/uL (4.0-10.0)
[2019-12-17 05:19] LABS: Alanine Aminotransferase 8 U/L (0-33); Albumin Level 3.4 g/dL (3.5-5.2); Alkaline Phosphatase 93 IU/L (35-105); Anion Gap 14.3 (5-19); Aspartate Amino Transferase 13 U/L (0-32); Blood Urea Nitrogen 26 mg/dL (8-23); Calcium 9.5 mg/dL (8.5-10.5); Carbon Dioxide 27 mmol/L (22-29); Chloride 102 mmol/L (98-107); Globulin 2.5 g/dL (1.3-4.6); Glucose 208 mg/dL (65-115); Osmolality Calculated 291 mOsm/kg (285-295); Potassium 4.3 mmol/L (3.5-5.1); Sodium 139 mmol/L (136-145); Total Bilirubin 0.2 mg/dL (0.15-1.2); Total Protein 5.9 g/dL (6.6-8.7)
[2019-12-17 07:51] LABS: Glucose Point of Care 180 mg/dL (70-110)
[2019-12-17] MEDS: pramipexole 0.25 mg Tablet 0.5 MG PO ×2 (07:53→17:43)
[2019-12-17] MEDS: oxyCODONE-APAP 10-325 mg Tablet 1 TAB PO ×2 (07:53→15:19)
[2019-12-17] MEDS: apixaban 5 mg Tablet PO ×2 (07:53→17:43)
[2019-12-17] MEDS: allopurinol 300 mg Tablet PO ×2 (07:54→17:43)
[2019-12-17] MEDS: roflumilast 500 mcg Tablet 250 MCG PO (07:54)
[2019-12-17] MEDS: ferrous sulfate EC 325 mg Tablet PO (07:55)
[2019-12-17] MEDS: levothyroxine 112 mcg Tablet PO (07:56)
[2019-12-17] MEDS: FUROsemide 20 mg Tablet PO (07:56)
[2019-12-17] MEDS: carbidopa-levodopa 25-100mg Tablet 1 EACH PO ×2 (07:56→17:43)
[2019-12-17] MEDS: oxybutynin 5 mg Tablet PO ×3 (07:56→21:08)
[2019-12-17] MEDS: metoprolol tartrate 25 mg Tablet 12.5 MG PO (07:57)
[2019-12-17] MEDS: pantoprazole DR 40 mg Tablet PO ×2 (07:57→17:43)
[2019-12-17] MEDS: gabapentin 300 mg Capsule PO ×3 (07:59→21:05)
[2019-12-17] MEDS: fluticasone nasal spray 16gm Btl 2 SPRAY INTRANASAL (08:08)
--- NOTE | 2019-12-17 10:00 | ECG_ITS ---
Measurements Intervals [place] Rate: 94 P: 32 TN: 242 QRS: 39 QRSD: 153 T: 2 QT: 384 QTc: 482 SINUS RHYTHM WITH FIRST DEGREE AV BLOCK INTRAVENTRICULAR CONDUCTION DELAY [130+ ms QRS DURATION] POSSIBLE INFERIOR MYOCARDIAL INFARCTION [30 ms Q WAVE IN II/aVF], PROBABLY OLD WITH POSTERIOR EXTENSION [PROMINENT R WAVE IN V1 Compared to ECG 12/16/2019 09:06:26 Intraventricular conduction delay now present Myocardial infarct finding now present Right bundle-branch block no longer present Electronically Signed On 12-17-2019 19:30:52 CDT by Marbella Ardon M.D. [id number]
--- NOTE | 2019-12-17 10:35 | PC.NURSE ---
PATIENT HAS NOTABLE DISCOMFORT EFFECTING DEEP BREATHING. VISIBLE BRUISING ALONG SPINE THORACIC REGION. SHE CLAIMS THAT THE PAIN TWISTS FROM HER MID BACK AND COMES UP TO HER CHEST. PATIENT HAD HER FIRST VOID POST CAMPBELL REMOVAL. MAY NEED PT/OT FOR A SAFE RETURN TO HOME MOVEMENT IS DIFFICULT. DR mclain w at bedside now and was made aware of issue.
[2019-12-17 11:13] LABS: Glucose Point of Care 243 mg/dL (70-110)
[2019-12-17] MEDS: cefTRIAXone 1,000 MG in sodium chloride 0.9% (plus) 50 ML 100 MG IV (11:30)
[2019-12-17] MEDS: lidocaine 5% Patch 1 PATCH TOPICAL (11:37)
[2019-12-17] MEDS: acetaminophen 325 mg Tablet 650 MG PO (11:38)
--- NOTE | 2019-12-17 13:57 | PM.PN ---
Subjective Subjective: Interval history: Patient is admitted to hospital with episode of syncope. Apparently she was found to be hypotensive and bradycardic in the emergency room of the [facility] in [facility]. Her heart rate was in the 30s. She was given atropine IV which brought the heart rate up into the 50s. Patient has not had any recurrence of syncopal episodes since then. The initial EKG here in this hospital revealed junctional rhythm with frequent supraventricular ectopics. Occasional sinus beats. The diltiazem was held. Patient was started on a small dose of beta-michael yesterday namely metoprolol 12.5 mg p.o. twice daily. This morning the heart rate is in the 90s appears to be in sinus rhythm Medications: Reviewed: Yes Medication Review Details: Current Medications Acetaminophen (Tylenol) 650 mg PO Q6H PRN PRN Reason: Mild/Mod Pain Or Temp >/= 101 Last Admin: 12/17/19 11:38 Dose: 650 mg Documented by: Albuterol Sulfate (Albuterol) 2.5 mg INHALATION Q6H.RESPIRATORY [facility] Last Admin: 12/17/19 14:36 Dose: 2.5 mg Documented by: Allopurinol (Zyloprim) 300 mg PO BID [facility] Last Admin: 12/17/19 17:43 Dose: 300 mg Documented by: Apixaban (Eliquis) 5 mg PO BID [facility] Last Admin: 12/17/19 17:43 Dose: 5 mg Documented by: Atorvastatin Calcium (Lipitor) 20 mg PO BEDTIME [facility] Last Admin: 12/16/19 20:58 Dose: 20 mg Documented by: Atropine Sulfate (Atropine Syr) 0.5 mg IVP ONCE PRN PRN Reason: HEART RATE-LOW Bimatoprost (Lumigan) 1 drop EYE-BOTH BEDTIME [facility] Last Admin: 12/16/19 21:05 Dose: 1 drop Documented by: Carbidopa/Levodopa (Sinemet) 1 each PO BID [facility] Last Admin: 12/17/19 17:43 Dose: 1 each Documented by: Clonazepam (Klonopin) 1 mg PO BEDTIME [facility] Last Admin: 12/16/19 20:57 Dose: 1 mg Documented by: Cyclobenzaprine HCl (Flexeril) 5 mg PO TID PRN PRN Reason: MUSCLE SPASMS Dextrose (D50w) 25 ml IVP ONCE PRN; Protocol PRN Reason: hypoglycemia protocol Dextrose (D50w) 50 ml IVP PRN PRN; Protocol PRN Reason: hypoglycemia protocol Ferrous Sulfate (Ferrous Sulfate) 325 mg PO BREAKFAST [facility] Last Admin: 12/17/19 07:55 Dose: 325 mg Documented by: Fluticasone Propionate (Flonase) 2 spray INTRANASAL DAILY [facility] Last Admin: 12/17/19 08:08 Dose: 2 spray Documented by: Furosemide (Lasix) 20 mg PO DAILY@0800 [facility] Last Admin: 12/17/19 07:56 Dose: 20 mg Documented by: Gabapentin (Neurontin) 300 mg PO TID [facility] Last Admin: 12/17/19 15:20 Dose: 300 mg Documented by: Glucagon (Glucagen) 1 mg IM ONCE PRN; Protocol PRN Reason: Adult Acute Hypoglycemia Prot. Dextrose (D5w) 500 mls @ 100 mls/hr IV ONCE PRN; Protocol PRN Reason: Adult Acute Hypoglycemia Prot Ceftriaxone Sodium 1,000 mg/ (Sodium Chloride) 50 mls @ 100 mls/hr IV Q24H [facility]; Protocol Last Admin: 12/17/19 11:30 Dose: 100 mls/hr Documented by: Insulin Aspart (Novolog) 0 unit SUBCUT AC&BEDTIME [facility]; Protocol Last Admin: 12/17/19 17:43 Dose: 4 unit Documented by: Insulin Glargine (Lantus) 10 unit SUBCUT BEDTIME [facility] Last Admin: 12/16/19 21:01 Dose: 10 unit Documented by: Isosorbide Mononitrate (Imdur) 30 mg PO DAILY [facility] Last Admin: 12/16/19 08:53 Dose: 30 mg Documented by: Levothyroxine Sodium (Synthroid) 112 mcg PO DAILY [facility] Last Admin: 12/17/19 07:56 Dose: 112 mcg Documented by: Lidocaine (Lidoderm 5% Patch) 1 patch TOPICAL O12O12 [facility] Last Admin: 12/17/19 11:37 Dose: 1 patch Documented by: Metoprolol Tartrate (Lopressor) 25 mg PO BID [facility] Last Admin: 12/17/19 17:43 Dose: 25 mg Documented by: Ondansetron HCl (Zofran) 4 mg IVP Q8H PRN PRN Reason: vomiting, or N/V if npo Oxybutynin Chloride (Ditropan) 5 mg PO TID [facility] Last Admin: 12/17/19 15:19 Dose: 5 mg Documented by: Oxycodone/Acetaminophen (Percocet 10-325 Mg) 1 tab PO Q8H PRN PRN Reason: Pain, Mild Last Admin: 12/17/19 15:19 Dose: 1 tab Documented by: Pantoprazole Sodium (Protonix) 40 mg PO BID [facility] Last Admin: 12/17/19 17:43 Dose: 40 mg Documented by: Pramipexole Dihydrochloride (Mirapex) 0.5 mg PO BID [facility] Last Admin: 12/17/19 17:43 Dose: 0.5 mg Documented by: Roflumilast (Daliresp) 250 mcg PO DAILY [facility] Last Admin: 12/17/19 07:54 Dose: 250 mcg Documented by: Fluticasone/Salmeterol (Advair Diskus 250-50) 1 puff INHALATION BID.RESPIRATORY [facility] Last Admin: 12/17/19 08:40 Dose: 1 inhalation Documented by: Senna/Docusate Sodium (Senna-S) 1 tab PO BID PRN PRN Reason: UNKNOWN Trazodone HCl (Desyrel) 100 mg PO BEDTIME [facility] Last Admin: 12/16/19 20:59 Dose: 100 mg Documented by: Vitals/I&O/Wt Last Vital Signs Temp 98.3 F 12/17/19 08:00 Pulse 93 12/17/19 10:00 Resp 14 12/17/19 10:00 BP 112/47 12/17/19 10:00 Pulse Ox 97 12/17/19 10:00 12/16/19 12/17/19 12/17/19 22:59 06:59 14:59 Intake Total 336 / 1086.988 300 / 1386.988 200 / 200 Output Total 150 / 800 450 / 1250 250 / 250 Balance 186 / 286.988 -150 / 136.988 -50 / -50 Weight last 48 hrs Weight 196 lb Weight 196 lb Physical Exam Narrative: EXAM NARRATIVE: GENERAL: The patient is alert and oriented times three. Not in any acute distress. HEENT: No significant pallor, icterus or lymphadenopathy.Oral cavity: There are no mucous membrane lesions. NECK: Trachea appears to be central. No masses noted. No JVD or thyromegaly appreciated. RESPIRATORY: Chest is symmetrical. No intercostals muscle retraction or any accessory muscle activation. There is no chest wall tenderness. Breath sounds are heard bilaterally. No rales or rhonchi heard. No evidence of any consolidation. BREASTS: Deferred. HEART: The heart sounds are normal. No S3 or S4. Short systolic murmur in the left sternal border. No diastolic murmurs. No pericardial rub. ABDOMEN: No vessel pulsations or distention. No tenderness. No organomegaly appreciated. Bowel sounds are normally heard. : Deferred. RECTAL: Deferred. LYMPHATIC: No lymphadenopathy noted in the neck or groin. EXTREMITIES: No edema or cyanosis. No clubbing. Peripheral pulses are palpated in fairly good volume and amplitude MUSCULOSKELETAL: No acute joint deformities or swelling SKIN: There are no significant rashes or ecchymosis NEUROPSYCHIATRIC: The patient is alert and oriented x3. Appears to be in a good mood. No tremors or rigidity noted. Urinary Catheter Management^: Ferrari: Cath Placed During This Visit: yes, but has since been removed by the nurse Reason for Continuing Indwelling Catheter: Decision to DC Catheter Urinary Catheter Date of Insertion: 12/15/19 Date Urinary Catheter Removed: 12/17/19 Time Urinary Catheter Discontinued: 05:00 Data : 12/17/19 04:08 12/17/19 04:08 Micro: Microbiology 12/15/19 18:48 Urine Culture - Preliminary Urine,Clean Catch Gram Negative Rods A&P Assessment and plan (1) Syncope: The patient's episodes of syncope, could be related to the bradycardia with hypotension. Other arrhythmias cannot be excluded. No severe bradycardia or prolonged pauses were noted since the hospital admission. Currently she is in sinus rhythm. Status: Acute Qualifiers: Syncope type: unspecified Qualified Code(s): R55 - Syncope and collapse (2) Paroxysmal A-fib: Patient is known to have approximately fibrillation and is on long-term oral anticoagulation. She also has history of thromboembolic episodes. Status: Acute (3) Chronic anticoagulation: Has a history of GI bleed. Currently there is no evidence of active bleed. She is mildly anemic. Status: Acute (4) Symptomatic bradycardia: Most likely related to the diltiazem. Currently she is in sinus rhythm with a rate of 90 bpm. Status: Acute (5) Chronic kidney disease: Kidney function appears to be stable Status: Acute Qualifiers: Chronic kidney disease stage: stage 2 (mild) Qualified Code(s): N18.2 - Chronic kidney disease, stage 2 (mild) (6) Type 2 diabetes mellitus: The blood sugar is elevated. Status: Acute Qualifiers: Diabetes mellitus complication status: with hyperglycemia Diabetes mellitus superintendent [employer] terminal insulin use: without senior living use Qualified Code(s): E11.65 - Type 2 diabetes mellitus with hyperglycemia Additional A&P Information History recurrent UTI History of pulmonary embolism History of GI bleed COPD Patient most likely may have some underlying sinus node dysfunction. She may require a permanent pacemaker, sometime down the line. For the timing, we may hold off on that. The dose of the metoprolol may be gradually increased to control the heart rate. She may go home with an event monitor. Based on the clinical progress, further recommendations will be made. Attestations Medical Necessity Statement*: Patient requires continued hospital stay for close monitoring and further management Coding Level of Care Code Acute Purification Director for [facility] Fwd Diagnoses Syncope R55 Syncope type: unspecified Paroxysmal A-fib I48.0 Chronic anticoagulation Z79.01 Symptomatic bradycardia R00.1 Chronic kidney disease N18.2 Chronic kidney disease stage: stage 2 (mild) Type 2 diabetes mellitus E11.65 Diabetes mellitus complication status: with hyperglycemia Diabetes mellitus senior living insulin use: without superintendent marine oil terminal use
--- NOTE | 2019-12-17 16:52 | PM.PN ---
Subjective Subjective: Interval history: Chart reviewed, patient seen and examined earlier this AM, seems quite uncomfortable particularly when moving/repositioning, primarily on L side likely from recent fall. Case discussed with Dr. Gregorio. HR on higher side of normal so will increase BB if BP allows. Will transfer to [facility]. Medications: Reviewed: Yes Medication Review Details: Active Medications Generic Name Dose Route Start Last Admin Trade Name Freq PRN Reason Stop Dose Admin Acetaminophen 650 mg 12/15/19 20:17 12/17/19 11:38 Tylenol PO 650 mg Q6H PRN Administration Mild/Mod Pain Or Temp >/= 101 Albuterol Sulfate 2.5 mg 12/15/19 21:00 12/17/19 14:36 Albuterol INHALATION 2.5 mg Q6H.RESPIRATORY [facility] Administration Allopurinol 300 mg 12/16/19 09:00 12/17/19 07:54 Zyloprim PO 300 mg BID [facility] Administration Apixaban 5 mg 12/16/19 09:00 12/17/19 07:53 Eliquis PO 5 mg BID [facility] Administration Atorvastatin Calci um 20 mg 12/15/19 21:00 12/16/19 20:58 Lipitor PO 20 mg BEDTIME [facility] Administration Atropine Sulfate 0.5 mg 12/15/19 19:29 Atropine Syr IVP ONCE PRN HEART RATE-LOW Bimatoprost 1 drop 12/16/19 21:00 12/16/19 21:05 Lumigan EYE-BOTH 1 drop BEDTIME [facility] Administration Carbidopa/Levodopa 1 each 12/16/19 09:00 12/17/19 07:56 Sinemet PO 1 each BID [facility] Administration Clonazepam 1 mg 12/15/19 21:00 12/16/19 20:57 Klonopin PO 1 mg BEDTIME [facility] Administration Dextrose 25 ml 12/15/19 20:17 D50w IVP ONCE PRN hypoglycemia prot ocol Protocol Dextrose 50 ml 12/15/19 20:17 D50w IVP PRN PRN hypoglycemia prot ocol Protocol Ferrous Sulfate 325 mg 12/17/19 08:00 12/17/19 07:55 Ferrous Sulfate PO 325 mg BREAKFAST [facility] Administration Fluticasone Propio igor 2 spray 12/17/19 09:00 12/17/19 08:08 Flonase INTRANASAL 2 spray DAILY [facility] Administration Furosemide 20 mg 12/16/19 09:45 12/17/19 07:56 Lasix PO 20 mg DAILY@0800 [facility] Administration Gabapentin 300 mg 12/15/19 21:00 12/17/19 15:20 Neurontin PO 300 mg TID [facility] Administration Glucagon 1 mg 12/15/19 20:17 Glucagen IM ONCE PRN Adult Acute Hypog lycemia Prot. Protocol Dextrose 500 mls @ 100 mls /hr 12/15/19 20:17 D5w IV ONCE PRN Adult Acute Hypog lycemia Prot Protocol Ceftriaxone Sodium 1,000 mg/ 50 mls @ 100 mls/ hr 12/16/19 09:30 12/17/19 11:30 Sodium Chloride IV 100 mls/hr Q24H [facility] Administration Protocol Insulin Aspart 0 unit 12/16/19 11:00 12/17/19 11:38 Novolog SUBCUT 8 unit AC&BEDTIME [facility] Administration Protocol Insulin Glargine 10 unit 12/15/19 21:00 12/16/19 21:01 Lantus SUBCUT 10 unit BEDTIME [facility] Administration Isosorbide Mononit rate 30 mg 12/16/19 09:00 12/16/19 08:53 Imdur PO 30 mg DAILY [facility] Administration Levothyroxine Sodi um 112 mcg 12/16/19 09:00 12/17/19 07:56 Synthroid PO 112 mcg DAILY [facility] Administration Lidocaine 1 patch 12/17/19 11:10 12/17/19 11:37 Lidoderm 5% Patc h TOPICAL 1 patch O12O12 [facility] Administration Metoprolol Tartrat e 12.5 mg 12/16/19 15:45 12/17/19 07:57 Lopressor PO 12.5 mg BID [facility] Administration Ondansetron HCl 4 mg 12/15/19 20:17 Zofran IVP Q8H PRN vomiting, or N/V if npo Oxybutynin Chlorid e 5 mg 12/15/19 21:00 12/17/19 15:19 Ditropan PO 5 mg TID [facility] Administration Oxycodone/Acetamin ophen 1 tab 12/15/19 20:17 12/17/19 15:19 Percocet 10-325 Mg PO 1 tab Q8H PRN Administration Pain, Mild Pantoprazole Sodiu m 40 mg 12/16/19 09:00 12/17/19 07:57 Protonix PO 40 mg BID [facility] Administration Pramipexole Dihydr ochloride 0.5 mg 12/16/19 09:00 12/17/19 07:53 Mirapex PO 0.5 mg BID [facility] Administration Roflumilast 250 mcg 12/17/19 09:00 12/17/19 07:54 Daliresp PO 250 mcg DAILY [facility] Administration Fluticasone/Salmet maria c 1 puff 12/16/19 08:00 12/17/19 08:40 Advair Diskus 25 0-50 INHALATION 1 inhalation BID.RESPIRATORY [facility] Administration Senna/Docusate Sod ium 1 tab 12/16/19 09:16 Senna-S PO BID PRN UNKNOWN Trazodone HCl 100 mg 12/16/19 21:00 12/16/19 20:59 Desyrel PO 100 mg BEDTIME [facility] Administration codeine Allergy (Verified 08/13/19 10:05) patient doesn't recall Iodinated Contrast Media Allergy (Verified 08/13/19 10:05) renal disease naproxen Allergy (Verified 08/13/19 10:05) renal disease Penicillins Allergy (Verified 08/13/19 10:05) hives shellfish derived Allergy (Verified 08/13/19 10:05) unknown Sulfa (Sulfonamide Antibiotics) Allergy (Verified 08/13/19 10:05) itching tramadol Adverse Reaction (Verified 08/13/19 10:05) makes me crazy garlic Allergy (Uncoded 08/13/19 10:05) unknown Vitals/I&O/Wt Last Vital Signs Temp 98.3 F 12/17/19 12:00 Pulse 88 12/17/19 14:39 Resp 22 H 12/17/19 15:19 BP 109/51 12/17/19 14:00 Pulse Ox 100 12/17/19 14:36 12/17/19 12/17/19 12/17/19 06:59 14:59 22:59 Intake Total 300 / 1386.988 450 / 450 Output Total 450 / 1250 650 / 650 250 / 900 Balance -150 / 136.988 -200 / -200 -250 / -450 Weight last 48 hrs Weight 88.904 kg Weight 88.904 kg Physical Exam Const: COMMON NORMALS: no acute distress, patient oriented x3 and alert GENERAL APPEARANCE: cooperative, frail appearing and appears older than stated age; not comfortable NUTRITIONAL APPEARANCE: obese morbidly obese ORIENTATION/CONSCIOUSNESS: Yes awake HENMT: COMMON NORMALS: normocephalic, atraumatic, hearing grossly normal bilaterally and moist oral mucous membranes HEAD & SCALP: normocephalic and atraumatic Eye: COMMON NORMALS: Equal, round and reactive pupils present, EOMs intact bilaterally and conjunctivae normal CONJUNCTIVA: Yes conjunctivae normal PUPIL: Yes Equal, round and reactive pupils present Neck/C-Spine: COMMON NORMALS: full ROM GENERAL: Yes normal visual inspection and Yes trachea midline Chest: OTHER: -L posterior chest wall tender to palpation Resp: COMMON NORMALS: normal respiratory effort, No retractions, No use of accessory muscles and clear to auscultation bilaterally EFFORT & INSPECTION: Yes able to speak in complete sentences, Yes symmetric chest movement and No tachypneic AUSCULTATION: clear to auscultation bilaterally OTHER: -on 3 L NC Cardio: COMMON NORMALS: regular rate, regular rhythm, S1 normal heart sound present, S2 normal heart sound present and No murmurs present (Cardio) RATE: regular rate RHYTHM: regular rhythm HEART SOUNDS: S1 normal heart sound present and S2 normal heart sound present GI: COMMON NORMALS: Normal to inspection, nondistended, normoactive bowel sounds present, Soft to palpation and non-tender INSPECTION: Yes central obesity PALPATION: Yes Soft to palpation : BLADDER/KIDNEY EXAM: No catheter in place Extremity: COMMON NORMALS: normal to inspection, full ROM, no clubbing, cyanosis or edema and no pedal edema Neuro: COMMON NORMALS: patient oriented x3, moves all extremities, no focal motor deficits and no sensory deficits noted SENSORIUM/ORIENTATION: Yes alert Psych: COMMON NORMALS: mental status grossly normal, Normal thought process present, cooperative, normal affect and speech normal SPEECH: Yes normal speech THOUGHT PROCESS: Normal thought process present Skin: COMMON NORMALS: no rashes or lesions noted, no jaundice, no petechiae and no mottling GENERAL SKIN EXAM: no rashes or lesions noted Urinary Catheter Management^: Ferrari: Cath Placed During This Visit: yes, but has since been removed by the nurse Reason for Continuing Indwelling Catheter: Decision to DC Catheter Urinary Catheter Date of Insertion: 12/15/19 Date Urinary Catheter Removed: 12/17/19 Time Urinary Catheter Discontinued: 05:00 Data : 06/08/20 04:08 12/17/19 04:08 Micro: Microbiology 12/15/19 18:48 Urine Culture - Preliminary Urine,Clean Catch Gram Negative Rods A&P Assessment and plan (1) Symptomatic advanced heart block: -required dopamine drip which has now been weaned off -telemetry and ECGs show sinus rhythm with first degree AV block -continue telemetry monitoring -HR in high normal range; started on Lopressor, increase as BP tolerate -Echo (07/2019): EF=70%, no RWMA, moderate TR, moderate MR, moderate pulmonary HTN -has been following up with Cardiology Dr. Gregorio; consult appreciated -continue to monitor vital signs -will likely need event monitor on d/c Status: Acute (2) Syncope and collapse: -as noted above -has L sided chest wall and mid back pain; pain control as needed Status: Acute (3) Paroxysmal A-fib: -on AC with Eliquis -on BB Status: Chronic (4) UTI (urinary tract infection): -UA indicative of infection -urine cx: GNRs, pending ID & sensitivity -on Ceftriaxone Status: Acute Qualifiers: Urinary tract infection type: acute cystitis Hematuria presence: without hematuria Qualified Code(s): N30.00 - Acute cystitis without hematuria (5) Type 2 diabetes mellitus: -last A1c-7.9 -Accuchecks, ISS, hypoglycemia precautions Status: Chronic Qualifiers: Diabetes mellitus retirement insulin use: without ferry terminal supervisor use Diabetes mellitus complication status: without complication Qualified Code(s): E11.9 - Type 2 diabetes mellitus without complications (6) History of pulmonary embolism: -is on AC with Eliquis Status: Chronic (7) Diastolic heart failure: -no acute exacerbation -Echo as noted above Status: Chronic Qualifiers: Heart failure chronicity: chronic Qualified Code(s): I50.32 - Chronic diastolic (congestive) heart failure (8) Anemia: -on iron supplementation -continue to monitor H/H -baseline Hg appears to be around 10 Status: Chronic Qualifiers: Anemia type: iron deficiency Iron deficiency anemia type: unspecified iron deficiency Qualified Code(s): D50.9 - Iron deficiency anemia, unspecified (9) COPD (chronic obstructive pulmonary disease): -no acute exacerbation -oxygen dependent at baseline, 3 L at baseline -continue to monitor respiratory status Status: Chronic Qualifiers: COPD type: unspecified COPD Qualified Code(s): J44.9 - Chronic obstructive pulmonary disease, unspecified (10) Chronic kidney disease: -baseline Cr appears to be around 2-2.3 -renally dose meds, avoid nephrotoxins Status: Acute Qualifiers: Chronic kidney disease stage: stage 2 (mild) Qualified Code(s): N18.2 - Chronic kidney disease, stage 2 (mild) Additional A&P Information -Advanced age -Morbid obesity: BMI-34 kg/m2 -Hypothyroidism; on levothyroxine -cardiac diet as tolerated -GI ppx with PPI -DVT ppx not needed as on Eliquis -Dispo: home, seems to have adequate family support -Code status: FULL code Attestations Medical Necessity Statement*: Patient requires hospitalization for continued medication optimization, hemodynamic status monitoring. Time Spent in Patient Care: Greater than 35 minutes (>than 50% of time spent in counselling and/or direct pt care on unit). Coding Level of Care Code Acute Adjustment Clerk for [facility] Fwd Exam Comprehensive Diagnoses Symptomatic advanced heart block I44.1 Syncope and collapse R55 Paroxysmal A-fib I48.0 UTI (urinary tract infection) N30.00 Urinary tract infection type: acute cystitis Hematuria presence: without hematuria Type 2 diabetes mellitus E11.9 Diabetes mellitus ferry terminal supervisor insulin use: without ferry terminal supervisor use Diabetes mellitus complication status: without complication History of pulmonary embolism Z86.711 Diastolic heart failure I50.32 Heart failure chronicity: chronic Anemia D50.9 Anemia type: iron deficiency Iron deficiency anemia type: unspecified iron deficiency COPD (chronic obstructive pulmonary disease) J44.9 COPD type: unspecified COPD Chronic kidney disease N18.2 Chronic kidney disease stage: stage 2 (mild)
[2019-12-17 17:23] LABS: Glucose Point of Care 176 mg/dL (70-110)
[2019-12-17] MEDS: metoprolol tartrate 25 mg Tablet PO (17:43)
[2019-12-17 20:34] LABS: Glucose Point of Care 210 mg/dL (70-110)
[2019-12-17 20:49] LABS: Glucose Point of Care 173 mg/dL (70-110)
[2019-12-17] MEDS: atorvastatin 40 mg Tablet 20 MG PO (21:05)
[2019-12-17] MEDS: cyclobenzaprine 10 mg Tablet 5 MG PO (21:07)
[2019-12-17] MEDS: trazodone 100 mg Tablet PO (21:08)
[2019-12-17] MEDS: CLONazepam 1 mg Tablet PO (21:08)
[2019-12-17] MEDS: insulin glargine 100 units/1 mL 10 UNIT SUBCUT (21:09)
--- NOTE | 2019-12-17 22:00 | PC.NURSE ---
Patient tucked in for bed and given night time medication as scheduled. Patient denied any questions about her medications and will continue to monitor.
[2019-12-18] VITALS (10 sets, daily range): BP systolic 125–132; BP diastolic 55–69; PULSE 86–97; RESP 12–22; TEMP 36.5–36.9; O2SAT 95–98; BMI 33.0
[2019-12-18] MEDS: oxyCODONE-APAP 10-325 mg Tablet 1 TAB PO ×2 (03:07→11:52)
--- NOTE | 2019-12-18 05:45 | PC.NURSE ---
End of shift: Patient has had uneventful shift. Patient has rested well. patient has complained of Left hip pain. Patients vitals have remained stable through out shift. Will continue to monitor.
[2019-12-18 06:36] LABS: Glucose Point of Care 196 mg/dL (70-110)
[2019-12-18] MEDS: lidocaine 5% Patch 1 PATCH TOPICAL ×2 (08:47→11:52)
[2019-12-18] MEDS: cefTRIAXone 1,000 MG in sodium chloride 0.9% (plus) 50 ML 100 MG IV (08:48)
[2019-12-18] MEDS: carbidopa-levodopa 25-100mg Tablet 1 EACH PO (08:48)
[2019-12-18] MEDS: gabapentin 300 mg Capsule PO (08:48)
[2019-12-18] MEDS: levothyroxine 112 mcg Tablet PO (08:48)
[2019-12-18] MEDS: ferrous sulfate EC 325 mg Tablet PO (08:48)
[2019-12-18] MEDS: roflumilast 500 mcg Tablet 250 MCG PO (08:48)
[2019-12-18] MEDS: pramipexole 0.25 mg Tablet 0.5 MG PO (08:48)
[2019-12-18] MEDS: FUROsemide 20 mg Tablet PO (08:49)
[2019-12-18] MEDS: oxybutynin 5 mg Tablet PO (08:49)
[2019-12-18] MEDS: pantoprazole DR 40 mg Tablet PO (08:49)
[2019-12-18] MEDS: metoprolol tartrate 25 mg Tablet PO (08:49)
[2019-12-18] MEDS: allopurinol 300 mg Tablet PO (08:49)
[2019-12-18] MEDS: apixaban 5 mg Tablet PO (08:49)
--- NOTE | 2019-12-18 08:55 | P.PN_ITS ---
Subjective Subjective: Interval history: Patient seemed to do well overnight, had 1300 mL urine output, received 1 dose of Percocet and 1 dose of Flexeril overnight for pain control. Heart rate more consistently controlled, otherwise hemodynamically stable, afebrile. Pain in L mid back area now resolved, complaining of pain in L shoulder and R hip area though overall looks better, sitting in chair by bedside. Urine cx resulted, yadav-sensitive E.coli. Medications: Reviewed: Yes Medication Review Details: Active Medications Generic Name Dose Route Start Last Admin Trade Name Freq PRN Reason Stop Dose Admin Acetaminophen 650 mg 12/15/19 20:17 12/17/19 11:38 Tylenol PO 650 mg Q6H PRN Administration Mild/Mod Pain Or Temp >/= 101 Albuterol Sulfate 2.5 mg 12/15/19 21:00 12/18/19 08:04 Albuterol INHALATION 2.5 mg Q6H.RESPIRATORY S CH Administration Allopurinol 300 mg 12/16/19 09:00 12/18/19 08:49 Zyloprim PO 300 mg BID GONZALO Administration Apixaban 5 mg 12/16/19 09:00 12/18/19 08:49 Eliquis PO 5 mg BID GONZALO Administration Atorvastatin Calci um 20 mg 12/15/19 21:00 12/17/19 21:05 Lipitor PO 20 mg BEDTIME GONZALO Administration Atropine Sulfate 0.5 mg 12/15/19 19:29 Atropine Syr IVP ONCE PRN HEART RATE-LOW Bimatoprost 1 drop 12/16/19 21:00 12/17/19 21:08 Lumigan EYE-BOTH 1 drop BEDTIME GONZALO Administration Carbidopa/Levodopa 1 each 12/16/19 09:00 12/18/19 08:48 Sinemet PO 1 each BID GONZALO Administration Clonazepam 1 mg 12/15/19 21:00 12/17/19 21:08 Klonopin PO 1 mg BEDTIME GONZALO Administration Cyclobenzaprine HC l 5 mg 12/17/19 17:14 12/17/19 21:07 Flexeril PO 5 mg TID PRN Administration MUSCLE SPASMS Dextrose 25 ml 12/15/19 20:17 D50w IVP ONCE PRN hypoglycemia prot ocol Protocol Dextrose 50 ml 12/15/19 20:17 D50w IVP PRN PRN hypoglycemia prot ocol Protocol Ferrous Sulfate 325 mg 12/17/19 08:00 12/18/19 08:48 Ferrous Sulfate PO 325 mg BREAKFAST GONZALO Administration Fluticasone Propio igor 2 spray 12/17/19 09:00 12/18/19 08:49 Flonase INTRANASAL Not Given DAILY GONZALO Furosemide 20 mg 12/16/19 09:45 12/18/19 08:49 Lasix PO 20 mg DAILY@0800 GONZALO Administration Gabapentin 300 mg 12/15/19 21:00 12/18/19 08:48 Neurontin PO 300 mg TID GONZALO Administration Glucagon 1 mg 12/15/19 20:17 Glucagen IM ONCE PRN Adult Acute Hypog lycemia Prot. Protocol Dextrose 500 mls @ 100 mls /hr 12/15/19 20:17 D5w IV ONCE PRN Adult Acute Hypog lycemia Prot Protocol Ceftriaxone Sodium 1,000 mg/ 50 mls @ 100 mls/ hr 12/16/19 09:30 12/18/19 08:48 Sodium Chloride IV 100 mls/hr Q24H GONZALO Administration Protocol Insulin Aspart 0 unit 12/16/19 11:00 12/18/19 06:44 Novolog SUBCUT 6 unit AC&BEDTIME GONZALO Administration Protocol Insulin Glargine 10 unit 12/15/19 21:00 12/17/19 21:09 Lantus SUBCUT 10 unit BEDTIME GONZALO Administration Isosorbide Mononit rate 30 mg 12/16/19 09:00 12/16/19 08:53 Imdur PO 30 mg DAILY GONZALO Administration Levothyroxine Sodi um 112 mcg 12/16/19 09:00 12/18/19 08:48 Synthroid PO 112 mcg DAILY GONZALO Administration Lidocaine 1 patch 12/17/19 11:10 12/18/19 08:47 Lidoderm 5% Patc h TOPICAL 1 patch [id number] GONZALO Administration Metoprolol Tartrat e 25 mg 12/17/19 18:00 12/18/19 08:49 Lopressor PO 25 mg BID GONZALO Administration Ondansetron HCl 4 mg 12/15/19 20:17 Zofran IVP Q8H PRN vomiting, or N/V if npo Oxybutynin Chlorid e 5 mg 12/15/19 21:00 12/18/19 08:49 Ditropan PO 5 mg TID GONZALO Administration Oxycodone/Acetamin ophen 1 tab 12/15/19 20:17 12/18/19 03:07 Percocet 10-325 Mg PO 1 tab Q8H PRN Administration Pain, Mild Pantoprazole Sodiu m 40 mg 12/16/19 09:00 12/18/19 08:49 Protonix PO 40 mg BID GONZALO Administration Pramipexole Dihydr ochloride 0.5 mg 12/16/19 09:00 12/18/19 08:48 Mirapex PO 0.5 mg BID GONZALO Administration Roflumilast 250 mcg 12/17/19 09:00 12/18/19 08:48 Daliresp PO 250 mcg DAILY GONZALO Administration Fluticasone/Salmet maria c 1 puff 12/16/19 08:00 12/18/19 08:04 Advair Diskus 25 0-50 INHALATION 1 inhalation BID.RESPIRATORY S CH Administration Senna/Docusate Sod ium 1 tab 12/16/19 09:16 Senna-S PO BID PRN UNKNOWN Trazodone HCl 100 mg 12/16/19 21:00 12/17/19 21:08 Desyrel PO 100 mg BEDTIME GONZALO Administration codeine Allergy (Verified 08/13/19 10:05) patient doesn't recall Iodinated Contrast Media Allergy (Verified 08/13/19 10:05) renal disease naproxen Allergy (Verified 08/13/19 10:05) renal disease Penicillins Allergy (Verified 08/13/19 10:05) hives shellfish derived Allergy (Verified 08/13/19 10:05) unknown Sulfa (Sulfonamide Antibiotics) Allergy (Verified 08/13/19 10:05) itching tramadol Adverse Reaction (Verified 08/13/19 10:05) makes me crazy garlic Allergy (Uncoded 08/13/19 10:05) unknown Vitals/I&O/Wt Last Vital Signs Temp 98.0 F 12/18/19 07:33 Pulse 96 12/18/19 08:12 Resp 18 12/18/19 08:05 BP 125/55 12/18/19 07:33 Pulse Ox 97 12/18/19 08:05 12/17/19 12/18/19 12/18/19 22:59 06:59 14:59 Intake Total 360 / 860 300 / 1160 360 / 360 Output Total 650 / 1300 600 / 1900 300 / 300 Balance -290 / -440 -300 / -740 60 / 60 Weight last 48 hrs Weight 87.288 kg Physical Exam Const: COMMON NORMALS: no acute distress, patient oriented x3 and alert GENERAL APPEARANCE: cooperative, frail appearing and appears older than stated age NUTRITIONAL APPEARANCE: obese morbidly obese ORIENTATION/CON SCIOUSNESS: Yes awake OTHER: -sitting in chair by bedside HENMT: COMMON NORMALS: normocephalic, atraumatic, hearing grossly normal bilaterally and moist oral mucous membranes HEAD & SCALP: normocephalic and atraumatic Eye: COMMON NORMALS: Equal, round and reactive pupils present, EOMs intact bilaterally and conjunctivae normal CONJUNCTIVA: Yes conjunctivae normal PUPIL: Yes Equal, round and reactive pupils present Neck/C-Spine: COMMON NORMALS: full ROM GENERAL: Yes normal visual inspection and Yes trachea midline Resp: COMMON NORMALS: normal respiratory effort, No retractions, No use of a ccessory muscles and clear to auscultation bilaterally EFFORT & INSPECTION: Yes able to speak in complete sentences, Yes symmetric chest movement and No tachypneic AUSCULTATION: clear to auscultation bilaterally OTHER: -on 3 L NC Cardio: COMMON NORMALS: regular rate, regular rhythm, S1 normal heart sound present, S2 normal heart sound present and No murmurs present (Cardio) RATE: regular rate RHYTHM: regular rhythm HEART SOUNDS: S1 normal heart sound present and S2 normal heart sound present GI: COMMON NORMALS: Normal to inspection, nondistended, normoactive bowel sounds present, Soft to palpation and non-tender INSPECTION: Yes central obesity PALPATION: Yes Soft to palpation : BLADDER/KIDNEY EXAM: No catheter in place Extremity: COMMON NORMALS: normal to inspection, full ROM, no clubbing, cyanosis or edema and no pedal edema LEFT UPPER EXTREMITY: Yes shoulder joint Left shoulder joint: Yes palpation (tenderness) and Yes neurovascular exam (intact) RIGHT LOWER EXTREMITY: Yes hip joint Right hip: Yes palpation (tender) Neuro: COMMON NORMALS: patient oriented x3, moves all extremities, no focal motor deficits and no sensory deficits noted SENSORIUM/ORIENTATION: Yes alert Psych: COMMON NORMALS: mental status grossly normal, Normal thought process present, cooperative, normal affect and speech normal SPEECH: Yes normal speech THOUGHT PROCESS: Normal thought process present Skin: COMMON NORMALS: no rashes or lesions noted, no jaundice, no petechiae and no mottling GENERAL SKIN EXAM: no rashes or lesions noted Urinary Catheter Management^: Ferrari: Cath Placed During This Visit: yes, but has since been removed by the nurse Reason for Continuing Indwelling Catheter: Decision to DC Catheter Urinary Catheter Date of Insertion: 12/15/19 Date Urinary Catheter Removed: 12/17/19 Time Urinary Catheter Discontinued: 05:00 Data : 12/17/19 04:08 12/17/19 04:08 Micro: Microbiology 12/15/19 18:48 Urine Culture - Preliminary Urine,Clean Catch Gram Negative Rods A&P Assessment and plan (1) Symptomatic advanced heart block: -required dopamine drip which has now been weaned off -telemetry and ECGs show sinus rhythm with first degree AV block -continue telemetry monitoring -HR in high normal range; started on Lopressor, increase as BP tolerate -Echo (07/2019): EF=70%, no RWMA, moderate TR, moderate MR, moderate pulmonary HTN -has been following up with Cardiology Dr. Gregorio; consult appreciated -continue to monitor vital signs -will need event monitor on d/c Status: Acute (2) Syncope and collapse: -as noted above -has L sided chest wall and mid back pain; pain control as needed Status: Acute (3) Paroxysmal A-fib: -on AC with Eliquis -on BB Status: Chronic (4) UTI (urinary tract infection): -UA indicative of infection -urine cx: yadav-sensitive E.coli -on Ceftriaxone; will d/c on cefuroxime Status: Acute Qualifiers: Hematuria presence: without hematuria Urinary tract infection type: acu te cystitis Qualified Code(s): N30.00 - Acute cystitis without hematuria (5) Type 2 diabetes mellitus: -last A1c-7.9 -Accuchecks, ISS, hypoglycemia precautions Status: Chronic Qualifiers: Diabetes mellitus complication status: without complication Diabetes mellitus manager long term care insulin use: without usp use Qualified Code(s): E11.9 - Type 2 diabetes mellitus without complications (6) History of pulmonary embolism: -is on AC with Eliquis Status: Chronic (7) Diastolic heart failure: -no acute exacerbation -Echo as noted above Status: Chronic Qualifiers: Heart failure chronicity: chronic Qualified Code(s): I50.32 - Chronic diastolic (congestive) heart failure (8) Anemia: -on iron supplementation -continue to monitor H/H -baseline Hg appears to be around 10 Status: Chronic Qualifiers: Anemia type: iron deficiency Iron deficiency anemia type: unspecified iron deficiency Qualified Code(s): D50.9 - Iron deficiency anemia, unspecified (9) COPD (chronic obstructive pulmonary disease): -no acute exacerbation -oxygen dependent at baseline, 3 L at baseline -continue to monitor respiratory status Status: Chronic Qualifiers: COPD type: unspecified COPD Qualified Code(s): J44.9 - Chronic obstructive pulmonary disease, unspecified (10) Chronic kidney disease: -baseline Cr appears to be around 2-2.3 -renally dose meds, avoid nephrotoxins Status: Acute Qualifiers: Chronic kidney disease stage: stage 2 (mild) Qualified Code(s): N18.2 - Chronic kidney disease, stage 2 (mild) Additional A&P Information -Advanced age -Morbid obesity: BMI-33 kg/m2 -Hypothyroidism; on levothyroxine -cardiac diet as tolerated -GI ppx with PPI -DVT ppx not needed as on Eliquis -Dispo: home, seems to have adequate family support -Code status: FULL code Attestations Medical Necessity Statement*: Potential discharge home later today Time Spent in Patient Care: 16 - 35 minutes (>than 50% of time spent in counselling and/or direct pt care on unit) . 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 Inboard/Outboard for Chg Fwd Exam Comprehensive Diagnoses Symptomatic advanced heart block I44.1 Syncope and collapse R55 Paroxysmal A-fib I48.0 UTI (urinary tract infection) N30.00 Hematuria presence: without hematuria Urinary tract infection type: acute cystitis Type 2 diabetes mellitus E11.9 Diabetes mellitus complication status: without complication Diabetes mellitus manager long term care insulin use: without manager long term care use History of pulmonary embolism Z86.711 Diastolic heart failure I50.32 Heart failure chronicity: chronic Anemia D50.9 Anemia type: iron deficiency Iron deficiency anemia type: unspecified iron deficiency COPD (chronic obstructive pulmonary disease) J44.9 COPD type: unspecified COPD Chronic kidney disease N18.2 Chronic kidney disease stage: stage 2 (mild)
--- NOTE | 2019-12-18 09:40 | PC.SOCIAL ---
IMM Update Pg. 2 of IMM given and explained to patient, who verbalized understanding.
--- NOTE | 2019-12-18 10:00 | ECG_ITS ---
Measurements Intervals [place] Rate: 92 P: 20 [place]: 245 QRS: 30 QRSD: 141 T: -1 QT: 390 QTc: 484 SINUS RHYTHM WITH FIRST DEGREE AV BLOCK RIGHT BUNDLE BRANCH BLOCK [120+ ms QRS DURATION, UPRIGHT V1, 40+ ms S IN I/aVL/V4/V5/V6] Compared to ECG 12/17/2019 10:21:12 Right bundle-branch block now present Intraventricular conduction delay no longer present Myocardial infarct finding no longer present Electronically Signed On 12-18-2019 19:36:56 CDT by Vanessa Gregorio M.D. [email or web address]
[2019-12-18] MEDS: sennosides-docusate Tablet 1 TAB PO (10:01)
[2019-12-18 10:54] LABS: Glucose Point of Care 225 mg/dL (70-110)
--- NOTE | 2019-12-18 11:29 | P.DS_ITS ---
Discharge Providers Date of Admission: 12/15/19 18:16 Date of Discharge: December 18, 2019 Attending Provider at Admission: Niko Caceres MD Attending Provider at Discharge: Vandana Villaseñor MD Primary Care Provider: Terence Rogers Diagnoses at Discharge Discharge Diagnosis (1) Symptomatic advanced heart block: Status: Acute Problem details: -required dopamine drip which has now been weaned off -telemetry and ECGs show sinus rhythm with first degree AV block -continue telemetry monitoring -HR in high normal range; started on Lopressor, increase as BP tolerate -Echo (07/2019): EF=70%, no RWMA, moderate TR, moderate MR, moderate pulmonary HTN -has been following up with Cardiology Dr. Gregorio; consult appreciated -continue to monitor vital signs -will need event monitor on d/c (2) Syncope and collapse: Status: Acute Problem details: -as noted above -has musculoskeletal pain, multiple joints; pain control as needed (3) Paroxysmal A-fib: Status: Chronic Problem details: -on AC with Eliquis -on BB; off Cardizem (4) UTI (urinary tract infection): Status: Acute Problem details: -UA indicative of infection -urine cx: yadav-sensitive E.coli -on Ceftriaxone; will d/c on cefuroxime Qualifiers: Urinary tract infection type: acute cystitis Hematuria presence: without hematuria Qualified Code(s): N30.00 - Acute cystitis without hematuria (5) Type 2 diabetes mellitus: Status: Chronic Problem details: -last A1c-7.9 -Accuchecks, ISS, hypoglycemia precautions Qualifiers: Diabetes mellitus care home insulin use: without adjunct faculty for medical terminology use Diabetes mellitus complication status: without complication Qualified Code(s): E11.9 - Type 2 diabetes mellitus without complications (6) History of pulmonary embolism: Status: Chronic Problem details: -is on AC with Eliquis (7) Diastolic heart failure: Status: Chronic Problem details: -no acute exacerbation -Echo as noted above Qualifiers: Heart failure chronicity: chronic Qualified Code(s): I50.32 - Chronic diastolic (congestive) heart failure (8) Anemia: Status: Chronic Problem details: -on iron supplementation -continue to monitor H/H -baseline Hg appears to be around 10 Qualifiers: Anemia type: iron deficiency Iron deficiency anemia type: unspecified iron deficiency Qualified Code(s): D50.9 - Iron deficiency anemia, unspecified (9) COPD (chronic obstructive pulmonary disease): Status: Chronic Problem details: -no acute exacerbation -oxygen dependent at baseline, 3 L at baseline -continue to monitor respiratory status Qualifiers: COPD type: unspecified COPD Qualified Code(s): J44.9 - Chronic obstructive pulmonary disease, unspecified (10) Chronic kidney disease: Status: Acute Problem details: -baseline Cr appears to be around 2-2.3 -renally dose meds, avoid nephrotoxins Qualifiers: Chronic kidney disease stage: stage 2 (mild) Qualified Code(s): N18.2 - Chronic kidney disease, stage 2 (mild) Other Information Additional DC diagnoses/information: -Advanced age -Morbid obesity: BMI-33 kg/m2 -Hypothyroidism; on levothyroxine Reason for Visit 2 Reason for Visit: BRADYCARDIA Hospital Course Hospital Course: Patient was initially admitted to ICU secondary to noted bradycardia with advanced heart block and need for close hemodynamic status monitoring as well as dopamine drip. Cardiology was consulted as patient was presenting with symptomatic bradycardia and syncopal episode. She responded well to dopamine which was weaned off once more hemodynamically stable. She had recently had an echo done earlier this year so this was not repeated during this admission and is as noted above. She has been hemodynamically stable with some tachycardia noted resulting in increased dose of her beta-michael. Cardizem has been discontinued due to aforementioned bradycardia. She was continued on Eliquis which she takes due to her history of paroxysmal A. fib. She did not require much in the way of diuresis and her home dose of Lasix has been decreased to 20 mg daily. Once off the dopamine drip, she was transferred to the cardiac stepdown unit for continued care. She has complained of musculoskeletal pain with multiple joint involvement likely due to underlying osteoarthritis and pain aggravated by recent fall. This was treated as needed with analgesics primarily nonnarcotic options per her preference. She has been seen by Dr. Gregorio she is her primary credit front office developer and recommendation made for cardiac event monitoring which has been ordered. She is oxygen dependent at baseline and has been maintained on her requirement of 3 L. She was found to have a UTI with urine cultures having grown yadav-sensitive E. coli. While admitted she has been on treatment with ceftriaxone and will be transitioned to oral cefuroxime to complete her treatment course. Due to underlying chronic kidney disease her renal function was monitored and is actually better than her baseline. She has baseline anemia likely secondary to iron deficiency and has been started on oral supplementation. Hemoglobin was relatively stable and she did not require transfusion of any blood products during her hospital stay. She will need to follow-up with her primary care provider within [address] Gregorio in 4 weeks. She is advised to seek medical attention immediately should she experience similar symptoms particularly in terms of syncope, worsening shortness of breath, chest pain. Discharge Summary: -Patient to follow-up with primary care physician within 1 week -Patient to follow-up with Dr. Gregorio in 4 weeks Physical Exam Const: COMMON NORMALS: no acute distress, patient oriented x3 and alert GENERAL APPEARANCE: cooperative, frail appearing and appears older than stated age NUTRITIONAL APPEARANCE: obese morbidly obese ORIENTATION/CONSCIOUSNESS: Yes awake OTHER: -sitting in chair by bedside HENMT: COMMON NORMALS: normocephalic, atraumatic, hearing grossly normal bilaterally and moist oral mucous membranes HEAD & SCALP: normocephalic and atraumatic Eye: COMMON NORMALS: Equal, round and reactive pupils present, EOMs intact bilaterally and conjunctivae normal CONJUNCTIVA: Yes conjunctivae normal PUPIL: Yes Equal, round and reactive pupils present Neck/C-Spine: COMMON NORMALS: full ROM GENERAL: Yes normal visual inspection and Yes trachea midline Resp: COMMON NORMALS: normal respiratory effort, No retractions, No use of accessory muscles and clear to auscultation bilaterally EFFORT & INSPECTION: Yes able to speak in complete sentences, Yes symmetric chest movement and No tachypneic AUSCULTATION: clear to auscultation bilaterally OTHER: -on 3 L NC Cardio: COMMON NORMALS: regular rate, regular rhythm, S1 normal heart sound present, S2 normal heart sound present and No murmurs present (Cardio) RATE: regular rate RHYTHM: regular rhythm HEART SOUNDS: S1 normal heart sound present and S2 normal heart sound present GI: COMMON NORMALS: Normal to inspection, nondistended, normoactive bowel sounds present, Soft to palpation and non-tender INSPECTION: Yes central obesity PALPATION: Yes Soft to palpation : BLADDER/KIDNEY EXAM: No catheter in place Extremity: COMMON NORMALS: normal to inspection, full ROM, no clubbing, cyanosis or edema and no pedal edema LEFT UPPER EXTREMITY: Yes shoulder joint Left shoulder joint: Yes palpation (tender) and Yes neurovascular exam (intact) RIGHT LOWER EXTREMITY: Yes hip joint Right hip: Yes palpation (tender) and Yes neurovascular exam (intact) Neuro: COMMON NORMALS: patient oriented x3, moves all extremities, no focal motor deficits and no sensory deficits noted SENSORIUM/ORIENTATION: Yes alert Psych: COMMON NORMALS: mental status grossly normal, Normal thought process present, cooperative, normal affect and speech normal SPEECH: Yes normal speech THOUGHT PROCESS: Normal thought process present Skin: COMMON NORMALS: no rashes or lesions noted, no jaundice, no petechiae and no mottling GENERAL SKIN EXAM: no rashes or lesions noted Urinary Catheter Management^: Ferrari: Cath Placed During This Visit: yes, but has since been removed by the nurse Reason for Continuing Indwelling Catheter: Decision to DC Catheter Urinary Catheter Date of Insertion: 12/15/19 Date Urinary Catheter Removed: 12/17/19 Time Urinary Catheter Discontinued: 05:00 Discharge Data Data Completed and Pending: Labs from last 24 hours 12/18/19 12/18/19 12/17/19 10:51 06:28 20:46 POC Glucose 225 196 173 12/17/19 12/17/19 17:08 05:15 POC Glucose 176 210 Vitals: Last Vital Signs Temp 98.0 F 12/18/19 07:33 Pulse 96 12/18/19 08:12 Resp 18 12/18/19 08:05 BP 125/55 12/18/19 07:33 Pulse Ox 97 12/18/19 08:05 Discharge Plan Discharge Patient Disposition: Home, Self-Care Condition: Stable Prescriptions: New ferrous sulfate 325 mg (65 mg iron) Tablet,Delayed Release (Dr/Ec) 325 mg PO BREAKFAST 30 Days Qty: 30 RF: 0 metoprolol tartrate 25 mg Tablet 25 mg PO BID 30 Days Qty: 60 RF: 0 cefuroxime axetil 250 mg tablet 250 mg PO BID 10 Days Qty: 20 RF: 0 lidocaine 5 % adhesive patch,medicated 1 patch TOPICAL DAILY 30 Days Qty: 30 RF: 0 Continued Eliquis 5 mg tablet 5 mg PO BID 30 Days Qty: 60 RF: 5 nitroglycerin 0.4 mg tablet, sublingual 0.4 mg SUBLINGUAL Q5M PRN (Reason: chest pain) 30 Days Qty: 30 RF: 3 Milk of Magnesia 400 mg/5 mL Suspension See Rx Instructions .ROUTE .COMPLEX RF: 0 Flonase Allergy Relief 50 mcg/actuation [place],Suspension 2 spray INTRANASAL DAILY RF: 0 Trulicity 0.75 mg/0.5 mL pen injector See Rx Instructions .ROUTE .COMPLEX RF: 0 Daliresp 250 mcg tablet 250 mcg PO DAILY RF: 0 omeprazole 40 mg capsule,delayed release(DR/EC) 40 mg PO DAILY RF: 0 Lantus Solostar U-100 Insulin 100 unit/mL (3 mL) insulin pen 34 unit SUBCUT BEDTIME RF: 0 sucralfate 100 mg/mL suspension See Rx Instructions .ROUTE .COMPLEX RF: 0 sennosides-docusate sodium 8.6-50 mg Tablet 1 tab-cap PO BID PRN (Reason: UNKNOWN) RF: 0 oxycodone-acetaminophen 10-325 mg tablet 1 tab PO Q8H PRN (Reason: Pain, Mild) RF: 0 carbidopa-levodopa 25-100 mg tablet 1 tab PO BID RF: 0 Saccharomyces boulardii [Florastor] 250 mg Capsule 500 mg PO BID RF: 0 lactulose 10 gram/15 mL solution 15 ml PO BID PRN (Reason: Constipation) RF: 0 albuterol sulfate 2.5 mg /3 mL (0.083 %) solution for nebulization 2.5 mg continuous nebulization Q4H PRN (Reason: Shortness Of Breath) RF: 0 pravastatin 40 mg tablet 40 mg PO DAILY RF: 0 clonazepam 1 mg tablet 1 mg PO BEDTIME RF: 0 pramipexole 0.5 mg tablet See Rx Instructions .ROUTE .COMPLEX RF: 0 trazodone 100 mg tablet 100 mg PO BEDTIME RF: 0 oxybutynin chloride 5 mg tablet 5 mg PO TID RF: 0 Proventil HFA 90 MCG 1 - 2 puff inhalation Q4H PRN (Reason: Shortness Of Breath) RF: 0 fluticasone propion-salmeterol [Advair Diskus] 250-50 mcg/dose Blister With Device 1 inh INHALATION BID RF: 0 cyanocobalamin (vitamin B-12) 1,000 mcg/mL solution 1,000 mcg IM Q30D RF: 0 gabapentin 300 mg capsule 300 mg PO TID RF: 0 allopurinol 300 mg tablet 300 mg PO BID RF: 0 Zyrtec 10 mg Capsule 10 mg PO BEDTIME RF: 0 Lumigan 0.01 % drops 1 drp ophthalmic (eye) BEDTIME RF: 0 Calcium 500 + D 500 MG 500 mg PO DAILY RF: 0 levothyroxine 112 mcg capsule 112 mcg PO DAILY Qty: 30 RF: 0 potassium chloride [Klor-Con 10] 10 mEq tablet extended release 20 meq PO DAILY Qty: 20 RF: 0 Changed isosorbide mononitrate 30 mg tablet extended release 24 hr 15 mg PO DAILY 30 Days Qty: 15 RF: 0 furosemide 20 mg tablet 20 mg PO DAILY 30 Days Qty: 30 RF: 0 Discontinued metoprolol tartrate 50 mg Tablet 50 mg PO BID RF: 0 losartan 100 mg Tablet 100 mg PO DAILY RF: 0 diltiazem HCl 180 mg capsule,extended release 24 hr 180 mg PO DAILY Qty: 30 RF: 0 Discharge Orders: Discharge Order (Routine); Ordered 12/18/19 Ordered By: Vandana Villaseñor Other Ambulatory Orders: [place] cardiac event monitor (Routine) Timeframe: 1 Day Facility: [facility] - Location: Card[facility] Diagnostic Laboratory Ordered By: Vandana Villaseñor Referrals: [facility] [Outside] Vanessa Gregorio MD [Physician] - 1 month (Post hospital discharge follow up) Terence Rogers [Primary Care Provider] - 4-7 days (Post hospital discharge follow up) Discharge Diet: Cardiac and Diabetic Discharge Activity: Increase activity as tolerated Discharge Attestations Time Spent in Discharge Care*: greater than 30 min Specific Discharge Activities: Specific discharge activities: educating patient, discussing with pcp/other providers, discussing with porter sample case/social workers/dc planners, documenting/other paperwork and evaluating patient/reviewing data Status at Discharge: Cognitive status at discharge: cognitively intact , Behavioral status at discharge: cooperative , Functional status at discharge: uses cane/walker Overall status at discharge: patient is progressing back to baseline Quality Metrics Clinical Quality Measures During this hospital stay, did patient experience: None Coding Level of Care Code 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 [employer] Diagnoses Symptomatic advanced heart block I44.1 Syncope and collapse R55 Paroxysmal A-fib I48.0 UTI (urinary tract infection) N30.00 Urinary tract infection type: acute cystitis Hematuria presence: without hematuria Type 2 diabetes mellitus E11.9 Diabetes mellitus care home insulin use: without care home use Diabetes mellitus complication status: without complication History of pulmonary embolism Z86.711 Diastolic heart failure I50.32 Heart failure chronicity: chronic Anemia D50.9 Anemia type: iron deficiency Iron deficiency anemia type: unspecified iron deficiency COPD (chronic obstructive pulmonary disease) J44.9 COPD type: unspecified COPD Chronic kidney disease N18.2 Chronic kidney disease stage: stage 2 (mild)
--- NOTE | 2019-12-18 11:33 | XRR_ITS ---
PROCEDURE INFORMATION: Exam: XR Left Shoulder Exam date and time: 12/18/2019 12:29 PM Age: 79 years old Clinical indication: Injury or trauma; Fall; Initial encounter; Blunt trauma (contusions or hematomas; Shoulder; Left; Additional info: L shoulder pain, recent fall TECHNIQUE: Imaging protocol: XR Left shoulder. Views: 2 or more views. COMPARISON: No relevant prior studies available. FINDINGS: Bones/joints: Osteopenia and degenerative change. No acute bony injury or malalignment in the visualized left shoulder. Lungs: Left basilar airspace/pleural disease. Heart/Mediastinum: Aortic and tracheobronchial calcification. Soft tissues: Unremarkable. XR/XR shoulder LT min 2V* [id number] IMPRESSION: No acute bony injury or malalignment in the visualized left shoulder.
--- NOTE | 2019-12-18 11:33 | XRR_ITS ---
PROCEDURE INFORMATION: Exam: XR Right Hip with Pelvis when Performed Exam date and time: 12/18/2019 12:27 PM Age: 79 years old Clinical indication: Injury or trauma; Fall; Initial encounter; Blunt trauma (contusions or hematomas); Right; Hip; Additional info: R hip pain, recent fall TECHNIQUE: Imaging protocol: XR Right hip with pelvis when performed. Views: 1 view. COMPARISON: No relevant prior studies available. FINDINGS: Bones/joints: No acute bony injury or malalignment. Soft tissues: Skin folds. Calcified uterine fibroid. Gastrointestinal tract: Prominent stool. Vasculature: Vascular calcification. XR/XR hip RT 2-3V wo/w pel* [id number] IMPRESSION: No acute bony injury or malalignment.
--- NOTE | 2019-12-18 11:34 | PM.PN ---
Subjective Subjective: Interval history: Patient has not had any chest pain or palpitations. Telemetry shows sinus rhythm. Blood pressure seems to be under control. She is mainly complaining of shoulder pains and hip pains from the fall. No fever, chills or cough. Medications: Reviewed: Yes Medication Review Details: Current Medications Acetaminophen (Tylenol) 650 mg PO Q6H PRN PRN Reason: Mild/Mod Pain Or Temp >/= 101 Last Admin: 12/17/19 11:38 Dose: 650 mg Documented by: Albuterol Sulfate (Albuterol) 2.5 mg INHALATION Q6H.RESPIRATORY [facility] Last Admin: 12/18/19 08:04 Dose: 2.5 mg Documented by: Allopurinol (Zyloprim) 300 mg PO BID [facility] Last Admin: 12/18/19 08:49 Dose: 300 mg Documented by: Apixaban (Eliquis) 5 mg PO BID [facility] Last Admin: 12/18/19 08:49 Dose: 5 mg Documented by: Atorvastatin Calcium (Lipitor) 20 mg PO BEDTIME [facility] Last Admin: 12/17/19 21:05 Dose: 20 mg Documented by: Atropine Sulfate (Atropine Syr) 0.5 mg IVP ONCE PRN PRN Reason: HEART RATE-LOW Bimatoprost (Lumigan) 1 drop EYE-BOTH BEDTIME [facility] Last Admin: 12/17/19 21:08 Dose: 1 drop Documented by: Carbidopa/Levodopa (Sinemet) 1 each PO BID [facility] Last Admin: 12/18/19 08:48 Dose: 1 each Documented by: Clonazepam (Klonopin) 1 mg PO BEDTIME [facility] Last Admin: 12/17/19 21:08 Dose: 1 mg Documented by: Cyclobenzaprine HCl (Flexeril) 5 mg PO TID PRN PRN Reason: MUSCLE SPASMS Last Admin: 12/17/19 21:07 Dose: 5 mg Documented by: Dextrose (D50w) 25 ml IVP ONCE PRN; Protocol PRN Reason: hypoglycemia protocol Dextrose (D50w) 50 ml IVP PRN PRN; Protocol PRN Reason: hypoglycemia protocol Ferrous Sulfate (Ferrous Sulfate) 325 mg PO BREAKFAST [facility] Last Admin: 12/18/19 08:48 Dose: 325 mg Documented by: Fluticasone Propionate (Flonase) 2 spray INTRANASAL DAILY [facility] Last Admin: 12/18/19 08:49 Dose: Not Given Documented by: Furosemide (Lasix) 20 mg PO DAILY@0800 [facility] Last Admin: 12/18/19 08:49 Dose: 20 mg Documented by: Gabapentin (Neurontin) 300 mg PO TID [facility] Last Admin: 12/18/19 08:48 Dose: 300 mg Documented by: Glucagon (Glucagen) 1 mg IM ONCE PRN; Protocol PRN Reason: Adult Acute Hypoglycemia Prot. Dextrose (D5w) 500 mls @ 100 mls/hr IV ONCE PRN; Protocol PRN Reason: Adult Acute Hypoglycemia Prot Ceftriaxone Sodium 1,000 mg/ (Sodium Chloride) 50 mls @ 100 mls/hr IV Q24H [facility]; Protocol Last Admin: 12/18/19 08:48 Dose: 100 mls/hr Documented by: Insulin Aspart (Novolog) 0 unit SUBCUT AC&BEDTIME [facility]; Protocol Last Admin: 12/18/19 11:52 Dose: 6 unit Documented by: Insulin Glargine (Lantus) 10 unit SUBCUT BEDTIME [facility] Last Admin: 12/17/19 21:09 Dose: 10 unit Documented by: Isosorbide Mononitrate (Imdur) 30 mg PO DAILY [facility] Last Admin: 12/16/19 08:53 Dose: 30 mg Documented by: Levothyroxine Sodium (Synthroid) 112 mcg PO DAILY [facility] Last Admin: 12/18/19 08:48 Dose: 112 mcg Documented by: Lidocaine (Lidoderm 5% Patch) 2 patch TOPICAL [id number] [facility] Metoprolol Tartrate (Lopressor) 25 mg PO BID [facility] Last Admin: 12/18/19 08:49 Dose: 25 mg Documented by: Ondansetron HCl (Zofran) 4 mg IVP Q8H PRN PRN Reason: vomiting, or N/V if npo Oxybutynin Chloride (Ditropan) 5 mg PO TID [facility] Last Admin: 12/18/19 08:49 Dose: 5 mg Documented by: Oxycodone/Acetaminophen (Percocet 10-325 Mg) 1 tab PO Q8H PRN PRN Reason: Pain, Mild Last Admin: 12/18/19 11:52 Dose: 1 tab Documented by: Pantoprazole Sodium (Protonix) 40 mg PO BID [facility] Last Admin: 12/18/19 08:49 Dose: 40 mg Documented by: Pramipexole Dihydrochloride (Mirapex) 0.5 mg PO BID [facility] Last Admin: 12/18/19 08:48 Dose: 0.5 mg Documented by: Roflumilast (Daliresp) 250 mcg PO DAILY [facility] Last Admin: 12/18/19 08:48 Dose: 250 mcg Documented by: Fluticasone/Salmeterol (Advair Diskus 250-50) 1 puff INHALATION BID.RESPIRATORY [facility] Last Admin: 12/18/19 08:04 Dose: 1 inhalation Documented by: Senna/Docusate Sodium (Senna-S) 1 tab PO BID PRN PRN Reason: UNKNOWN Last Admin: 12/18/19 10:01 Dose: 1 tab Documented by: Trazodone HCl (Desyrel) 100 mg PO BEDTIME [facility] Last Admin: 12/17/19 21:08 Dose: 100 mg Documented by: Vitals/I&O/Wt Last Vital Signs Temp 98.0 F 12/18/19 07:33 Pulse 96 12/18/19 08:12 Resp 18 12/18/19 08:05 BP 125/55 12/18/19 07:33 Pulse Ox 97 12/18/19 08:05 12/17/19 12/18/19 12/18/19 22:59 06:59 14:59 Intake Total 360 / 860 300 / 1160 360 / 360 Output Total 650 / 1300 600 / 1900 300 / 300 Balance -290 / -440 -300 / -740 60 / 60 Weight last 48 hrs Weight 192 lb 7 oz Physical Exam Narrative: EXAM NARRATIVE: GENERAL: The patient is alert and oriented times three. Not in any acute distress. HEENT: No significant pallor, icterus or lymphadenopathy.Oral cavity: There are no mucous membrane lesions. NECK: Trachea appears to be central. No masses noted. No JVD or thyromegaly appreciated. RESPIRATORY: Chest is symmetrical. No intercostals muscle retraction or any accessory muscle activation. There is no chest wall tenderness. Breath sounds are heard bilaterally. No rales or rhonchi heard. No evidence of any consolidation. BREASTS: Deferred. HEART: The heart sounds are normal. No S3 or S4. Short systolic murmur in the left sternal border. No diastolic murmurs. No pericardial rub. ABDOMEN: No vessel pulsations or distention. No tenderness. No organomegaly appreciated. Bowel sounds are normally heard. : Deferred. RECTAL: Deferred. LYMPHATIC: No lymphadenopathy noted in the neck or groin. EXTREMITIES: No edema or cyanosis. MUSCULOSKELETAL: No acute joint deformities or swelling. Some tenderness in the left shoulder and scapular region. Also has tenderness in the right hip area. SKIN: There are no significant rashes or ecchymosis NEUROPSYCHIATRIC: The patient is alert and oriented x3. Appears to be in a good mood. No tremors or rigidity noted. Urinary Catheter Management^: Ferrari: Cath Placed During This Visit: yes, but has since been removed by the nurse Reason for Continuing Indwelling Catheter: Decision to DC Catheter Urinary Catheter Date of Insertion: 12/15/19 Date Urinary Catheter Removed: 12/17/19 Time Urinary Catheter Discontinued: 05:00 Data : 12/17/19 04:08 12/17/19 04:08 Micro: Microbiology 12/15/19 18:48 Urine Culture - Final Urine,Clean Catch Escherichia coli A&P Assessment and plan (1) Syncope: The patient's episodes of syncope, could be related to the bradycardia with hypotension. Other arrhythmias cannot be excluded. No severe bradycardia or prolonged pauses were noted since the hospital admission. Currently she is in sinus rhythm. Has not had any recurrence of the symptoms. She seems to be tolerating the 25 mg of metoprolol twice a day. May continue on the current medication. Status: Acute Qualifiers: Syncope type: unspecified Qualified Code(s): R55 - Syncope and collapse (2) Paroxysmal A-fib: Patient is known to have approximately fibrillation and is on long-term oral anticoagulation. She also has history of thromboembolic episodes. Status: Chronic (3) Chronic anticoagulation: Has a history of GI bleed. Currently there is no evidence of active bleed. She is mildly anemic. Status: Acute (4) Symptomatic bradycardia: Most likely related to the diltiazem. Currently she is in sinus rhythm with a rate of 90 bpm. Has not had any recurrence of bradycardia arrhythmia since hospital admission Status: Acute (5) Chronic kidney disease: Kidney function appears to be stable. May continue on the current measures Status: Acute Qualifiers: Chronic kidney disease stage: stage 2 (mild) Qualified Code(s): N18.2 - Chronic kidney disease, stage 2 (mild) (6) Type 2 diabetes mellitus: The blood sugar is elevated. Aggressive management of the diabetes as per the primary Status: Chronic Qualifiers: Diabetes mellitus senior living insulin use: without rat exterminator use Diabetes mellitus complication status: without complication Qualified Code(s): E11.9 - Type 2 diabetes mellitus without complications Additional A&P Information History recurrent UTI History of pulmonary embolism History of GI bleed COPD Patient most likely may have some underlying sinus node dysfunction. She may require a permanent pacemaker, sometime down the line. For the timing, we may hold off on that. The dose of the metoprolol may be gradually increased to control the heart rate. She may go home with an event monitor. Based on the clinical progress and the event monitor findings, further recommendations will be made. Attestations Medical Necessity Statement*: Possible discharge home today. 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
--- NOTE | 2019-12-18 16:31 | PC.SOCIAL ---
PA was attempted but was denied due to no qualifying diagnosis. Only few diagnosis codes that will be covered. Updated Dr Villaseñor. No further orders received updated [facility] pharmacy and called patient.
== END 2019-12-18 15:03 | disposition home or self-care (01) | DRG 309 ==
LOC: ER 17:42 → ICU 18:26 → CSU 12-17 17:22
PROVIDERS: Emergency Medicine; Admitting Provider Student in an Organized Health Care Education/Training Program; Family Provider Family Medicine; PCP Family Medicine; Visit Provider Family Medicine
DX: I44.0 Atrioventricular block, first degree (principal); I13.0 Hypertensive heart and chronic kidney disease with heart failure and stage 1 through stage 4 chronic kidney disease, or unspecified chronic kidney disease; I50.32 Chronic diastolic (congestive) heart failure; N17.9 Acute kidney failure, unspecified; N30.00 Acute cystitis without hematuria; N18.2 Chronic kidney disease, stage 2 (mild); E11.22 Type 2 diabetes mellitus with diabetic chronic kidney disease; J44.9 Chronic obstructive pulmonary disease, unspecified; Z99.81 Dependence on supplemental oxygen; I48.0 Paroxysmal atrial fibrillation; Z86.711 Personal history of pulmonary embolism; Z79.01 Long term (current) use of anticoagulants; E03.9 Hypothyroidism, unspecified; G89.29 Other chronic pain; M54.9 Dorsalgia, unspecified; Z87.891 Personal history of nicotine dependence; M10.9 Gout, unspecified; D50.9 Iron deficiency anemia, unspecified; E87.5 Hyperkalemia; M25.512 Pain in left shoulder; Z91.81 History of falling; E66.01 Morbid (severe) obesity due to excess calories; Z68.33 Body mass index [BMI] 33.0-33.9, adult; Z87.440 Personal history of urinary (tract) infections; Z79.4 Long term (current) use of insulin; Z79.891 Long term (current) use of opiate analgesic; Z79.51 Long term (current) use of inhaled steroids
CPT/HCPCS: 12345; 36415; 36416; 51702; 73030; 73502; 80053; 81001; 82962; 83540; 83550; 83735; 83880; 84100; 84132; 84145; 84443; 84484; 85025; 85378; 85610; 87077; 87086; 87186; 93005; 94640; 94664; 96372; 96375; 99283; J0696; J1265; J1815; J7611

== ENCOUNTER 2020-02-15 12:57 | Emergency (ER) | payer MEDICARE, MEDICAID, SELFPAY ==
[2020-02-15 13:03] VITALS: BP 142/71; PULSE 73; RESP 18; O2SAT 100; BMI 31.4
--- NOTE | 2020-02-15 13:24 | ED_ITS ---
HPI - Chest Pain General: Chief Complaint: Chest Pain Stated Complaint: CHEST PAIN Time Seen by Provider: 02/15/20 13:14 History of Present Illness: HPI narrative: 79-year-old female presents with complaint of 3 days of chest pain. Second to began while she was walking at is very worse is been 9 of 3 yesterday it resolved after 3 nitros she is pain-free at the time that I seen her she had received nitro and aspirin on route. When she gets the pain she gets short of breath and it radiates to the jaw. She has seen Dr. Gregorio in the past but has not had an angiogram anytime recently he did have a stress test about 3 years ago will review the records. Patient is chronically on oxygen for COPD and has not had increase that dose of oxygen rest does seem to improve the pain exertion worsens it. She has a known history of coronary artery disease, she states she has previously had an IA. MD complaint: chest pain Pertinent past history: coronary artery disease Onset (ago): day(s) (3) Timing of current episode: episodic Prior episodes: Yes Onset: during exertion Pain location: substernal and left chest Pain radiation: neck and jaw/teeth Severity: severe Quality: tightness Relieving factors: nitroglycerin and rest Exacerbating factors: exertion Associated symptoms: Reports diaphoresis, dyspnea and nausea; Deny fever(s) or vomiting Treatment prior to arrival: aspirin, nitroglycerin and oxygen Review of Systems Const: Reports: diaphoresis; Denies: fever(s) ENMT: Denies: throat pain, ear or mastoid pain, nasal discharge or nasal congestion Card: Denies: chest pain, edema, dyspnea on exertion or orthopnea Resp: Reports: dyspnea GI: Reports: nausea; Denies: vomiting : Denies: flank pain, difficulty voiding, dysuria, urinary frequency or urinary urgency Skin/Breast: Denies: rash or pruritus PFSH ED PFSH: Medical History Acute on chronic renal failure BUN 24, Cr 0.9 on 11/23/2019 Anemia -on iron supplementation -continue to monitor H/H -baseline Hg appears to be around 10 Bradycardia Chronic anticoagulation Chronic back pain Chronic kidney disease -baseline Cr appears to be around 2-2.3 -renally dose meds, avoid nephrotoxins COPD (chronic obstructive pulmonary disease) -no acute exacerbation -oxygen dependent at baseline, 3 L at baseline -continue to monitor respiratory status Diastolic heart failure -no acute exacerbation -Echo as noted above Former smoker Gout History of pulmonary embolism -is on AC with Eliquis Hypertension Hypothyroidism Intermittent atrial fibrillation Normal coronary angiogram Cardiac angiogram done in September 2015 Osteoarthritis Paroxysmal A-fib Paroxysmal A-fib -on AC with Eliquis -on BB; off Cardizem Symptomatic bradycardia Syncope Type 2 diabetes mellitus UTI (urinary tract infection) -UA indicative of infection -urine cx: yadav-sensitive E.coli -on Ceftriaxone; will d/c on cefuroxime Surgical History H/O left knee surgery History of cholecystectomy Tubal ligation status Family History Father CAD (coronary artery disease) Family history of premature coronary artery disease Hypertension Mother Cancer Chronic kidney disease (CKD) Hypertension Sister Hyperlipidemia Hypertension Daughter No problems noted. Other Diabetes Denies family history of Clotting disorder Dementia Psychiatric illness Suicide Anesthesia complication Bleeding disorder Lung disease Stroke Social History Smoking and tobacco status: former smoker Quit status (tobacco): has quit using tobacco Second hand smoke exposure: No Smoking risk assessment/counseling performed?: No Alcohol intake: never Household members: family Housing: House Physical Exam Const: COMMON NORMALS: no acute distress GENERAL APPEARANCE: cooperative and comfortable ORIENTATION/CONSCIOUSNESS: Yes awake, Yes oriented to person, Yes oriented to place and Yes oriented to time HENMT: COMMON NORMALS: normocephalic and atraumatic HEAD & SCALP: normocephalic and atraumatic Eye: COMMON NORMALS: Equal, round and reactive pupils present, EOMs intact bilaterally, conjunctivae normal and no scleral icterus CONJUNCTIVA: Yes conjunctivae normal PUPIL: Yes Equal, round and reactive pupils present Neck/C-Spine: COMMON NORMALS: full ROM, no lymphadenopathy, supple and no JVD Lymph: LYMPHATIC: no lymphadenopathy noted and no lymphedema noted Resp: COMMON NORMALS: normal respiratory effort, No retractions, No use of accessory muscles and clear to auscultation bilaterally AUSCULTATION: clear to auscultation bilaterally Cardio: COMMON NORMALS: no JVD, regular rate, regular rhythm and No murmurs present (Cardio) RATE: regular rate RHYTHM: regular rhythm GI: COMMON NORMALS: Soft to palpation and No hepatosplenomegaly present AUSCULTATION: Yes normoactive bowel sounds PALPATION: Yes Soft to palpation, No Tenderness to palpation present (GI), No Guarding due to palpation present (GI) and Yes No hepatosplenomegaly present Extremity: COMMON NORMALS: normal to inspection, capillary refill normal, no clubbing, cyanosis or edema, no calf tenderness and no pedal edema Neuro: SENSORIUM/ORIENTATION: Yes oriented to person, Yes oriented to place and Yes oriented to time Skin: COMMON NORMALS: no rashes or lesions noted GENERAL SKIN EXAM: no rashes or lesions noted Course Vital Signs: Vital signs: Vital Signs Pulse Rate 69 02/15/20 15:18 Respiratory Rate 18 02/15/20 15:18 Blood Pressure 142/71 02/15/20 15:18 Pulse Oximetry 100 02/15/20 15:18 MDM - Chest Pain MDM Narrative: Medical decision making narrative: Due to findings with the patient. She not having any chest discomfort at all now I think this is more COPD her stress test was negative recently. Her cardiac enzymes and EKG do not show any significant changes she is unchanged from her previous ones of the right bundle branch block. We will go and discharge her home on steroids aggressive use of pulmonary toilet with nebulizer. In addition to that she is already on apixaban. So do not believe PE is likely. If she has worsening or change symptoms return otherwise follow-up with her primary care doctor early next week. Lab Data: Labs: Lab Results 02/15/20 02/15/20 02/15/20 Range/Units 14:09 14:09 14:09 WBC 7.6 (4.0-10.0) 10^3/ uL RBC 4.05 L (4.1-5.3) 10^6/u L Hgb 12.5 (11.5-15.3) g/dL Hct 40.2 (37.0-47.0) % MCV 99.3 H (81-99) fL MCH 30.9 (28.0-34.0) pg MCHC 31.1 (30.0-36.0) g/dL RDW 13.5 (12.1-15.1) % Plt Count 132 (130-400) 10^3/c mm MPV 11.2 H (7.4-10.4) fL Neut % (Auto) 67.1 % Lymph % (Auto) 22.3 % [place] % (Auto) 8.4 % Eos % (Auto) 1.4 % Baso % (Auto) 0.4 % Neut # (Auto) 5.09 (1.8-7.7) 10^3/u L Lymph # (Auto) 1.7 (0.8-4.8) 10^3/u L [place] # (Auto) 0.6 (0.2-0.9) 10^3/u L Eos # (Auto) 0.1 (0.0-0.8) 10^3/u L Baso # (Auto) 0.0 (0.0-0.1) 10^3/u L Nucleated RBC % (a uto) 0 % Nucleated RBCs # 0.0 /100WBC Sodium 136 (136-145) mmol/L Potassium 4.1 (3.5-5.1) mmol/L Chloride 99 (98-107) mmol/L Carbon Dioxide 29 (22-29) mmol/L Anion Gap 12.1 (5-19) BUN 25 H (8-23) mg/dL Creatinine 0.8 (0.5-0.9) mg/dL GFR Calculation Not Reportable Glucose 140 H (65-115) mg/dL Calculated Osmolal ity 281 L (285-295) mOsm/k g Calcium 9.8 (8.5-10.5) mg/dL Total Bilirubin 0.2 (0.15-1.2) mg/dL AST 13 (0-32) U/L ALT < 5 (0-33) U/L Alkaline Phosphata se 91 (35-105) IU/L Troponin T Baselin e 21 H (0-10) ng/L Troponin T 120 Min robinson (0-10) ng/L Delta Troponin T (0-10) ABS# NT-Pro-B Natriuret Pep 467 H (0-450) pg/mL Total Protein 6.5 L (6.6-8.7) g/dL Albumin 4.1 (3.5-5.2) g/dL Globulin 2.4 (1.3-4.6) g/dL 08/07/20 Range/Units 16:33 WBC (4.0-10.0) 10^3/ uL RBC (4.1-5.3) 10^6/u L Hgb (11.5-15.3) g/dL Hct (37.0-47.0) % MCV (81-99) fL MCH (28.0-34.0) pg MCHC (30.0-36.0) g/dL RDW (12.1-15.1) % Plt Count (130-400) 10^3/c mm MPV (7.4-10.4) fL Neut % (Auto) % Lymph % (Auto) % [place] % (Auto) % Eos % (Auto) % Baso % (Auto) % Neut # (Auto) (1.8-7.7) 10^3/u L Lymph # (Auto) (0.8-4.8) 10^3/u L [place] # (Auto) (0.2-0.9) 10^3/u L Eos # (Auto) (0.0-0.8) 10^3/u L Baso # (Auto) (0.0-0.1) 10^3/u L Nucleated RBC % (a uto) % Nucleated RBCs # /100WBC Sodium (136-145) mmol/L Potassium (3.5-5.1) mmol/L Chloride (98-107) mmol/L Carbon Dioxide (22-29) mmol/L Anion Gap (5-19) BUN (8-23) mg/dL Creatinine (0.5-0.9) mg/dL GFR Calculation Glucose (65-115) mg/dL Calculated Osmolal ity (285-295) mOsm/k g Calcium (8.5-10.5) mg/dL Total Bilirubin (0.15-1.2) mg/dL AST (0-32) U/L ALT (0-33) U/L Alkaline Phosphata se (35-105) IU/L Troponin T Baselin e (0-10) ng/L Troponin T 120 Min robinson 21.17 H (0-10) ng/L Delta Troponin T 0.17 (0-10) ABS# NT-Pro-B Natriuret Pep (0-450) pg/mL Total Protein (6.6-8.7) g/dL Albumin (3.5-5.2) g/dL Globulin (1.3-4.6) g/dL Discharge Plan Discharge Patient Disposition: Home Clinical Impression: Acute exacerbation of chronic obstructive pulmonary disease, Atypical chest pain Condition: Stable Prescriptions: New methylprednisolone [Medrol (Tereso)] 4 mg tablets,dose pack See Rx Instructions .ROUTE .COMPLEX Qty: 21 RF: 0 No Action ferrous sulfate 325 mg (65 mg iron) tablet,delayed release (DR/EC) 325 mg PO DAILY RF: 0 diltiazem HCl 180 mg capsule,extended release 24 hr 180 mg PO DAILY RF: 0 furosemide 40 mg tablet 40 mg PO BID RF: 0 Eliquis 5 mg tablet 5 mg PO BID 30 Days Qty: 60 RF: 5 nitroglycerin 0.4 mg tablet, sublingual 0.4 mg SUBLINGUAL Q5M PRN (Reason: chest pain) 30 Days Qty: 30 RF: 3 metoprolol tartrate 25 mg tablet 25 mg PO BID Qty: 180 RF: 3 magnesium hydroxide [Milk of Magnesia] 400 mg/5 mL Suspension See Rx Instructions .ROUTE .COMPLEX RF: 0 fluticasone propionate [Flonase Allergy Relief] 50 mcg/actuation Daniel,Suspension 2 spray INTRANASAL DAILY RF: 0 Trulicity 0.75 mg/0.5 mL pen injector See Rx Instructions .ROUTE .COMPLEX RF: 0 Daliresp 250 mcg tablet 250 mcg PO DAILY RF: 0 omeprazole 40 mg capsule,delayed release(DR/EC) 40 mg PO DAILY RF: 0 Lantus Solostar U-100 Insulin 100 unit/mL (3 mL) insulin pen 34 unit SUBCUT BEDTIME RF: 0 sucralfate 100 mg/mL suspension See Rx Instructions .ROUTE .COMPLEX RF: 0 isosorbide mononitrate 30 mg tablet extended release 24 hr 15 mg PO DAILY 30 Days Qty: 15 RF: 0 sennosides-docusate sodium 8.6-50 mg Tablet 1 tab-cap PO BID PRN (Reason: UNKNOWN) RF: 0 oxycodone-acetaminophen 10-325 mg tablet 1 tab PO Q8H PRN (Reason: Pain, Mild) RF: 0 carbidopa-levodopa 25-100 mg tablet 1 tab PO BID RF: 0 Saccharomyces boulardii [Florastor] 250 mg Capsule 500 mg PO BID RF: 0 lactulose 10 gram/15 mL solution 15 ml PO BID PRN (Reason: Constipation) RF: 0 albuterol sulfate 2.5 mg /3 mL (0.083 %) solution for nebulization 2.5 mg continuous nebulization Q4H PRN (Reason: Shortness Of Breath) RF: 0 pravastatin 40 mg tablet 40 mg PO DAILY RF: 0 clonazepam 1 mg tablet 1 mg PO BEDTIME RF: 0 pramipexole 0.5 mg tablet 1 mg PO DAILY RF: 0 trazodone 100 mg tablet 100 mg PO BEDTIME RF: 0 oxybutynin chloride 5 mg tablet 5 mg PO TID RF: 0 Proventil HFA 90 MCG 1 - 2 puff inhalation Q4H PRN (Reason: Shortness Of Breath) RF: 0 fluticasone propion-salmeterol [Advair Diskus] 250-50 mcg/dose Blister With Device 1 inh INHALATION BID RF: 0 cyanocobalamin (vitamin B-12) 1,000 mcg/mL solution 1,000 mcg IM Q30D RF: 0 gabapentin 300 mg capsule 300 mg PO TID RF: 0 allopurinol 300 mg tablet 300 mg PO BID RF: 0 Zyrtec 10 mg Capsule 10 mg PO BEDTIME RF: 0 Lumigan 0.01 % drops 1 drp ophthalmic (eye) BEDTIME RF: 0 Calcium 500 + D 500 MG 500 mg PO DAILY RF: 0 levothyroxine 112 mcg capsule 112 mcg PO DAILY Qty: 30 RF: 0 potassium chloride [Klor-Con 10] 10 mEq tablet extended release 20 meq PO DAILY Qty: 20 RF: 0 Discharge Orders: Discharge Order (Routine); Ordered 02/15/20 Ordered By: Gabe Goldman Referrals: Terence Rogers [Primary Care Provider] - Discharge Diet: Usual diet Discharge Activity: Limit activity as instructed Activity Restrictions/Additional Instructions: Avoid strenuous activities continue on your oxygen use no your nebulizer 4 times a day and in between every 2 hours if you need it. Follow-up with your doctor early next week return to the emergency room if you have problems. Coding Level of Care Code ED Training Assistant for Pat[facility]ia Fwd Exam Comprehensive
--- NOTE | 2020-02-15 13:51 | ECG_ITS ---
[facility] Test Date: 2020-02-15 Pat Name: Cathryn Ramsey Department: Room: Gender: Female Mirror Maker: : 1940 Requested By: Gabe Rubin Order Number: [id number] Rodolfo MD: Uziel Ramos M.D. Measurements Intervals [place] Rate: 73 P: 70 MS: 308 QRS: 59 QRSD: 137 T: 11 QT: 408 QTc: 451 Interpretive Statements SINUS RHYTHM WITH FIRST DEGREE AV BLOCK RIGHT BUNDLE BRANCH BLOCK [120+ ms QRS DURATION, UPRIGHT V1, 40+ ms S IN I/aVL/V4/V5/V6] Compared to ECG 12/18/2019 10:21:29 No significant changes Electronically Signed On 02-15-2020 18:05:59 CDT by Uziel Ramos M.D. [id number]
--- NOTE | 2020-02-15 13:51 | XRR_ITS ---
PROCEDURE INFORMATION: Exam: XR Chest, 1 View Exam date and time: 02/15/2020 2:28 PM Age: 79 years old Clinical indication: Chest pain and other: Jaw; Type not specified; Patient HX: HX of breast cancer TECHNIQUE: Imaging protocol: XR of the chest Views: 1 view. COMPARISON: CR XR chest 1V portable [id number] 08/01/2019 10:28 PM FINDINGS: Lungs: Left lower lobe atelectasis is seen. The lungs are otherwise clear. No consolidation. Pleural space: Unremarkable. No pleural effusion. No pneumothorax. Heart/Mediastinum: Unremarkable. No cardiomegaly. Bones/joints: Unremarkable. XR/XR chest 1V portable [id number] IMPRESSION: No acute findings.
[2020-02-15 14:17] LABS: Basophils % 0.4 %; Eosinophils # 0.1 10^3/uL (0.0-0.8); Eosinophils % 1.4 %; Hematocrit 40.2 % (37.0-47.0); Hemoglobin 12.5 g/dL (11.5-15.3); Lymphocytes # 1.7 10^3/uL (0.8-4.8); Lymphocytes % 22.3 %; Mean Corpuscular HGB Conc 31.1 g/dL (30.0-36.0); Mean Corpuscular Hemoglobin 30.9 pg (28.0-34.0); Mean Corpuscular Volume 99.3 fL (81-99); Mean Platelet Volume 11.2 fL (7.4-10.4); Monocytes # 0.6 10^3/uL (0.2-0.9); Monocytes % 8.4 %; Neutrophils # 5.09 10^3/uL (1.8-7.7); Neutrophils % 67.1 %; Nucleated Red Blood Cells % 0 %; Platelet Count 132 10^3/cmm (130-400); Red Blood Count 4.05 10^6/uL (4.1-5.3); Red Cell Distribution Width 13.5 % (12.1-15.1); White Blood Count 7.6 10^3/uL (4.0-10.0)
[2020-02-15 14:34] LABS: Troponin(5th) Baseline 21 ng/L (0-10)
[2020-02-15 14:43] LABS: Alanine Aminotransferase < 5 U/L (0-33); Albumin Level 4.1 g/dL (3.5-5.2); Alkaline Phosphatase 91 IU/L (35-105); Anion Gap 12.1 (5-19); Aspartate Amino Transferase 13 U/L (0-32); Blood Urea Nitrogen 25 mg/dL (8-23); Calcium 9.8 mg/dL (8.5-10.5); Carbon Dioxide 29 mmol/L (22-29); Chloride 99 mmol/L (98-107); Globulin 2.4 g/dL (1.3-4.6); Glucose 140 mg/dL (65-115); NT Pro B Type Natriuretic Pept 467 pg/mL (0-450); Osmolality Calculated 281 mOsm/kg (285-295); Potassium 4.1 mmol/L (3.5-5.1); Sodium 136 mmol/L (136-145); Total Bilirubin 0.2 mg/dL (0.15-1.2); Total Protein 6.5 g/dL (6.6-8.7)
[2020-02-15 15:18] VITALS: BP 142/71; PULSE 69; RESP 18; O2SAT 100
--- NOTE | 2020-02-15 15:51 | ECG_ITS ---
[facility] Test Date: 2020-02-15 Pat Name: Cathryn Ramsey Department: Room: Gender: Female Share Holder: : 1940 Requested By: Gabe Rubin Order Number: [id number] Rodolfo MD: Uziel Ramos M.D. Measurements Intervals [place] Rate: 67 P: 56 CO: 318 QRS: 51 QRSD: 135 T: 13 QT: 429 QTc: 456 Interpretive Statements SINUS RHYTHM WITH FIRST DEGREE AV BLOCK RIGHT BUNDLE BRANCH BLOCK [120+ ms QRS DURATION, UPRIGHT V1, 40+ ms S IN I/aVL/V4/V5/V6] Compared to ECG 02/15/2020 13:17:23 No significant changes Electronically Signed On 02-15-2020 18:18:16 CDT by Uziel Ramos M.D. [id number]
[2020-02-15 16:56] LABS: Troponin 5 2HR 21.17 ng/L (0-10); Troponin 5 2HR Delta 0.17 ABS# (0-10)
[2020-02-15 17:00] VITALS: BP 151/80; PULSE 72; RESP 18; O2SAT 100
[2020-02-15 17:18] VITALS: BP 151/80; PULSE 72; RESP 18; O2SAT 100
== END 2020-02-15 17:20 | disposition home or self-care (01) ==
PROVIDERS: Emergency Provider Family Medicine; PCP Family Medicine
DX: J44.1 Chronic obstructive pulmonary disease with (acute) exacerbation (principal); R07.89 Other chest pain; Z79.01 Long term (current) use of anticoagulants; Z79.4 Long term (current) use of insulin; Z87.891 Personal history of nicotine dependence; I11.0 Hypertensive heart disease with heart failure; I50.30 Unspecified diastolic (congestive) heart failure; I48.0 Paroxysmal atrial fibrillation; E11.9 Type 2 diabetes mellitus without complications
CPT/HCPCS: 12345; 36415; 71045; 80053; 83880; 84484; 85025; 93005; 93010; 99282; 99284

== ENCOUNTER 2020-04-28 10:20 | Outpatient (CLI) | payer MEDICARE, MEDICAID, SELFPAY ==
--- NOTE | 2020-04-28 11:30 | FL_ITS ---
WS: [id number] MODIFIED BARIUM SWALLOW TECHNIQUE: Modified barium swallow with speech therapy using multiple consistencies. FLUOROSCOPY TIME: 2 minutes. CLINICAL INFORMATION: R13.10 Dysphagia, unspecified COMPARISON: None. FINDINGS: Multiple consistencies utilized. Moderate esophageal dysmotility is visualized with reflux to the hyp opharynx. Dysmotility results in delayed esophageal emptying. No significant visualized hiatal hernia . Penetration visualized with thin liquids. No marquis aspiration. FL/FL barium swallow modifd 13786 IMPRESSION: 1. Thin liquid penetration. No marquis aspiration. 2. Moderate esophageal dysmotility with reflux to the hypopharynx. 3. Esophageal dysmotility results in delayed emptying. 4. Findings could be further evaluated with esophagram if indicated.
== END 2020-04-28 10:21 | disposition home or self-care (01) ==
LOC: RAD 10:28
PROVIDERS: PCP Family Medicine; Visit Provider Surgery
DX: R13.10 Dysphagia, unspecified (principal)
CPT/HCPCS: 74230; 92611

== ENCOUNTER → 2020-05-02 13:16 | Outpatient (BNVA) | payer MEDICARE, MEDICAID, SELFPAY | PROVIDERS: PCP Family Medicine; Visit Provider Surgery | DX: Z20.828 Contact with and (suspected) exposure to other viral communicable diseases (principal) | CPT/HCPCS: 87635 ==

== ENCOUNTER 2020-05-07 06:58 | Day surgery (SDC) | payer MEDICARE, MEDICAID, SELFPAY ==
[2020-05-07 07:10] VITALS: BP 160/77; PULSE 78; RESP 18; O2SAT 96
--- NOTE | 2020-05-07 07:34 | ANES.PREANE2 ---
Pre-Anesthetic Assessment Pre-Anesthetic Assessment: Height/Weight: Height 1.63 m Preop Diagnosis: Difficulty in swallowing Proposed Procedure: Operation Date: 05/07/20 08:00 Proposed Procedures p EGD 12922/R10.13(Not Applicable) - Bill Anglin MD Familial anesthetic complications: pt hard to wake up Was Beta Nunu taken within 24 hours: Yes Last intake: Intake Last Liquid Date 05/06/20 Last Liquid Time 18:00 Last Solid Date 05/06/20 Last Solid Time 18:00 Last Intake: 00:01 Social: Social History: No alcohol and No tobacco (x 49 years ) Exam: Pre-Anes Outpt Exam: alert, oriented x 3 and clear to auscultation bilaterally Airway: Submandibular: WNL Cervical ROM: WNL MP: 1 Additional comments: endentulous Pulmonary: Pulmonary: COPD (3 Liters O2 at home ), ASHTON, Sleep apnea (CPAP (bilevel)) and SOB CV/HEM: CV/HEM: Angina (Stable) (Saw Dr. hernandez in February to rule out chest pain, meds adjusted and cardiac work up clear. ), Arrythmia (tachycardia vs bradycardia ), CAD, CHF, HTN and VT (10 years ago ) : : Chronic renal failure (had dialysis with a hospitlization in ICU last July ) Hepatic: Hepatic: None reported GI: GI: GERD (controlled with meds ) Metabolic: Metabolic: DM (IDDM), Morbid obesity and Thyroid Musc/skel: Musc/skel: Lower Back Pain and OA/DJD Neuropsych: Neuropsych: Anxiety Anesthetic Plan: ASA status: 3 Anesthesia: Anesthesia Evaluation and MAC PFSH Anesthesia PFSH: Medical History Acute on chronic renal failure BUN 24, Cr 0.9 on 11/23/2019 Anemia -on iron supplementation -continue to monitor H/H -baseline Hg appears to be around 10 Atypical chest pain Cardiac catheterization [place] [address] [place]. She had no significant coronary artery disease at that time. Bradycardia Chronic anticoagulation Chronic back pain Chronic kidney disease -baseline Cr appears to be around 2-2.3 -renally dose meds, avoid nephrotoxins Chronic kidney disease COPD (chronic obstructive pulmonary disease) -no acute exacerbation -oxygen dependent at baseline, 3 L at baseline -continue to monitor respiratory status Diastolic heart failure -no acute exacerbation -Echo as noted above Diastolic heart failure Former smoker Gout History of pulmonary embolism -is on AC with Eliquis Hypertension Hypothyroidism Intermittent atrial fibrillation Normal coronary angiogram Cardiac angiogram done in September 2015 Osteoarthritis Symptomatic bradycardia Syncope Type 2 diabetes mellitus UTI (urinary tract infection) -UA indicative of infection -urine cx: yadav-sensitive E.coli -on Ceftriaxone; will d/c on cefuroxime Surgical History H/O left knee surgery History of cholecystectomy Tubal ligation status Family History Father CAD (coronary artery disease) Family history of premature coronary artery disease Hypertension Mother Cancer Chronic kidney disease (CKD) Hypertension Sister Hyperlipidemia Hypertension Daughter No problems noted. Other Diabetes Denies family history of Clotting disorder Dementia Psychiatric illness Suicide Anesthesia complication Bleeding disorder Lung disease Stroke Social History Smoking and tobacco status: former smoker Quit status (tobacco): has quit using tobacco Second hand smoke exposure: No Smoking risk assessment/counseling performed?: No Alcohol intake: never Household members: family Housing: House Marital status: Single Current occupational status: retired History of recent travel: No Data Anesthesia Cardiac Studies: Holter Monitor 01/24/20
[2020-05-07 07:41] LABS: Glucose Point of Care 136 mg/dL (70-110)
[2020-05-07] MEDS: sodium chloride 0.9% 1,000 ML 30 ML IV (07:49)
--- NOTE | 2020-05-07 08:15 | W.PM.OPSUD ---
Surgery/Procedure H&P Update DATE OF PROCEDURE: May 07, 2020 DATE H&P PERFORMED: 04/21/20 H&P UPDATE INFORMATION: I have reviewed H&P completed within last 30 days, I have examined patient prior to procedure and Changes to prior documentation as noted here CHANGES TO PREVIOUS DOCUMENTATION: Upper GI study shows IMPRESSION: 1. Thin liquid penetration. No marquis aspiration. 2. Moderate esophageal dysmotility with reflux to the hypopharynx. 3. Esophageal dysmotility results in delayed emptying. 4. Findings could be further evaluated with esophagram if indicated. PREOP DIAGNOSIS: Difficulty in swallowing PRIMARY INDICATION FOR PROCEDURE: The same PLANNED PROCEDURE: Operation Date: 05/07/20 08:00 Proposed Procedures p EGD 37580/R10.13(Not Applicable) - Bill Anglin MD
[2020-05-07 08:48] VITALS: BP 147/75; PULSE 80; RESP 16; TEMP 36.8; O2SAT 100
[2020-05-07 08:55] VITALS: BMI 34.0
[2020-05-07 09:05] VITALS: BP 161/79; PULSE 82; RESP 16; O2SAT 100
--- NOTE | 2020-05-07 09:10 | ANE.PACU2 ---
Inpatient post-anesthesia follow up: Airway intact: Yes Vital signs: Temperature 98.3 F Pulse Rate 82 Respiratory Rate 16 Blood Pressure 161/79 Pulse Oximetry 100 Oxygen Delivery Me thod Nasal Cannula Oxygen Flow Rate 3 Fraction of Inspir ed Oxygen Hydration adequate: Yes Nausea and vomiting: No Pain level: 1 Mental status: Baseline
[2020-05-08 06:27] LABS: H. Pylori / CLO Test Negative
== END 2020-05-07 09:10 | disposition home or self-care (01) ==
PROVIDERS: PCP Family Medicine; Visit Provider Surgery
PROC: 0DJ08ZZ Inspection of Upper Intestinal Tract, Via Natural or Artificial Opening Endoscopic (ICD-10-PCS; CPT 43235; principal; 2020-05-07 08:00)
DX: R13.10 Dysphagia, unspecified (principal); K29.70 Gastritis, unspecified, without bleeding; K29.80 Duodenitis without bleeding; J44.9 Chronic obstructive pulmonary disease, unspecified; Z99.81 Dependence on supplemental oxygen; G47.30 Sleep apnea, unspecified; I25.10 Atherosclerotic heart disease of native coronary artery without angina pectoris; I25.2 Old myocardial infarction; E66.01 Morbid (severe) obesity due to excess calories; Z68.34 Body mass index [BMI] 34.0-34.9, adult; E11.22 Type 2 diabetes mellitus with diabetic chronic kidney disease; I13.0 Hypertensive heart and chronic kidney disease with heart failure and stage 1 through stage 4 chronic kidney disease, or unspecified chronic kidney disease; N18.2 Chronic kidney disease, stage 2 (mild); I50.30 Unspecified diastolic (congestive) heart failure; Z87.891 Personal history of nicotine dependence; Z86.711 Personal history of pulmonary embolism; Z79.01 Long term (current) use of anticoagulants; M19.90 Unspecified osteoarthritis, unspecified site
CPT/HCPCS: 12345; 36416; 43239; 82962; 87077; J2704; J7030

== ENCOUNTER 2020-05-21 08:57 | Outpatient (CLI) | payer MEDICARE, MEDICAID, SELFPAY ==
--- NOTE | 2020-05-21 09:27 | MM_ITS ---
WS: [id number] Left breast diagnostic digital mammogram, 05/21/2020 Clinical Data: HX BREAST CA Comparison: 05/17/2019, 05/15/2018, 04/14/2017, 04/12/2016, 04/09/2015, 03/26/2014, 03/22/2013, 02/15/2011, 02/09/2010, 01/21/2009, 01/15/2008, 12/29/2006. Findings: The breast parenchyma is heterogeneously dense. There are ductal calcifications throughout the breast unchanged. No secondary signs of carcinoma present. There are no spiculated masses or clustered calc ifications. MM/[place] [id number] Impression: 1. Negative left breast unchanged. 2. Recommend annual mammogram. BIRADS: 1-Negative FOLLOW UP: 1 Year Follow-up The CAD unloading checker was used.
== END 2020-05-21 08:58 | disposition home or self-care (01) ==
LOC: ONCMED 09:07
PROVIDERS: PCP Family Medicine; Visit Provider Internal Medicine Medical Oncology
DX: Z12.31 Encounter for screening mammogram for malignant neoplasm of breast (principal); Z85.3 Personal history of malignant neoplasm of breast
CPT/HCPCS: 77065

== ENCOUNTER 2020-06-02 08:05 | Outpatient (CLI) | payer MEDICARE, MEDICAID, SELFPAY ==
--- NOTE | 2020-06-02 08:37 | FL_ITS ---
WS: [id number] UPPER GI WITH AIR TECHNICAL: Double contrast upper GI with thin and thick barium FLUOROSCOPY TIME: 3.1 minutes CLINICAL INFORMATION: R13.10 - Dysphagia, unspecified COMPARISON: Modified barium swallow April 28, 2020 FINDINGS: Swallowing: Penetration with no marquis aspiration. Esophagus: Moderate esophageal dysmotility with delayed emptying. Tertiary contractions are visualize d in the mid and distal esophagus with esophageal spasm. Reflux is visualized in the upright and supi ne position to the midesophagus Gastroesophageal reflux: Present Stomach: Normal emptying Duodenum: Duodenal diverticulum along the descending duodenum measuring 2.5 x 1.5 cm Other findings: None. FL/FL upper GI w air* [id number] IMPRESSION: 1. Penetration with thin and thick liquids visualized. No marquis aspiration. 2. Moderate esophageal dysmotility with delayed emptying. Tertiary contraction s are visualized in the mid and distal esophagus with significant esophageal sp asm. 3. Reflux is visualized to the midesophagus in the upright and supine imaging. 4. No significant hiatal hernia. 5. Duodenal diverticulum along the second portion of the duodenum measuring 2. 5 x 1.5 cm
== END 2020-06-02 08:06 | disposition home or self-care (01) ==
LOC: RADWPI 08:10
PROVIDERS: PCP Family Medicine; Visit Provider Surgery
DX: R13.10 Dysphagia, unspecified (principal); K57.10 Diverticulosis of small intestine without perforation or abscess without bleeding
CPT/HCPCS: 74246

== ENCOUNTER 2020-06-22 10:07 | Emergency (ER) | payer MEDICARE, MEDICAID, SELFPAY ==
[2020-06-22 10:13] VITALS: BP 166/68; PULSE 87; RESP 20; TEMP 37.3; O2SAT 94; BMI 34.3
--- NOTE | 2020-06-22 10:15 | ED_ITS ---
HPI - Abdominal Pain General: Chief Complaint: Abdominal Pain Stated Complaint: abd pain Time Seen by Provider: 06/22/20 10:12 Source: patient and EMS Mode of arrival: EMS Limitations: no limitations History of Present Illness: HPI narrative: Patient is an 79-year-old female who presents with 3 to 4 days of right lower quadrant abdominal pain. She denies diarrhea or constipation she denies dysuria. She states she did have an episode of emesis this morning she denies nausea currently. She has had a right mastectomy. She states that she feels like she has a fever but she has not had one recorded. She denies cough. There is no significant tenderness to palpation of her abdomen. Bowel sounds are quiet. She denies chest pain or shortness of breath. MD elicited complaint: abdominal pain Onset (ago): day(s) Pain Consistency: constant Location: RLQ Severity: moderate Pain scale (0-10): 7 Quality: aching Associated Symptoms: Reports chills and vomiting; Denies change in bowel habits, coffee ground emesis, constipation, diarrhea, dysuria, excessive flatus, fever(s), hematochezia, hematemesis, fecal incontinence and melena Review of Systems Const: Reports: chills; Denies: fever(s), change in appetite or malaise Eyes: Denies: change in vision, blurry vision, eye discharge or eye redness ENMT: Denies: throat pain, uvular edema, odynophagia, mouth pain, dental pain, nasal congestion or sinus pain Card: Denies: chest pain, irregular heart rhythm, swelling of feet/ankles, dyspnea on exertion, orthopnea or leg pain with exertion Resp: Denies: dyspnea, productive cough, wheezing or hemoptysis GI: Reports: abdominal pain and vomiting; Denies: hematemesis, coffee ground emesis, diarrhea, constipation, excessive flatus, fecal incontinence, change in bowel habits, pain on defecation, hematochezia or melena : Denies: flank pain, difficulty voiding, dysuria, urinary frequency, urinary urgency or urinary hesitancy Musc: Denies: neck pain, back pain, extremity pain or extremity swelling Skin/Breast: Denies: rash, pruritus, erythema, jaundice or dry skin Neuro: Denies: headache(s), numbness in extremities, weakness in extremities, sensory changes, lack of coordination or difficulty walking Psych: Denies: anxiety, depression, mood swings, panic attacks, sleeping less, suicidal ideation or homicidal ideation Endo: Denies: polyuria, polydipsia or tired all the time Buzz/Lymph: Denies: easy bruising, petechiae or enlarged lymph nodes All/Imm: Denies: urticaria, throat swelling, facial swelling, acute wheezing or seasonal rhinorrhea PFSH ED PFSH: Medical History Acute on chronic renal failure BUN 24, Cr 0.9 on 11/23/2019 Anemia -on iron supplementation -continue to monitor H/H -baseline Hg appears to be around 10 Atypical chest pain Cardiac [place] [address] [place]. She had no significant coronary artery disease at that time. Bradycardia Chronic anticoagulation Chronic back pain Chronic kidney disease -baseline Cr appears to be around 2-2.3 -renally dose meds, avoid nephrotoxins Chronic kidney disease COPD (chronic obstructive pulmonary disease) -no acute exacerbation -oxygen dependent at baseline, 3 L at baseline -continue to monitor respiratory status Diastolic heart failure -no acute exacerbation -Echo as noted above Diastolic heart failure Former smoker Gout History of pulmonary embolism -is on AC with Eliquis Hypertension Hypothyroidism Intermittent atrial fibrillation Normal coronary angiogram Cardiac angiogram done in September 2015 Osteoarthritis Symptomatic bradycardia Syncope Type 2 diabetes mellitus UTI (urinary tract infection) -UA indicative of infection -urine cx: yadav-sensitive E.coli -on Ceftriaxone; will d/c on cefuroxime Surgical History H/O left knee surgery History of cholecystectomy Tubal ligation status Family History Father CAD (coronary artery disease) Family history of premature coronary artery disease Hypertension Mother Cancer Chronic kidney disease (CKD) Hypertension Sister Hyperlipidemia Hypertension Daughter No problems noted. Other Diabetes Denies family history of Clotting disorder Dementia Psychiatric illness Suicide Anesthesia complication Bleeding disorder Lung disease Stroke Social History Smoking and tobacco status: former smoker Quit status (tobacco): has quit using tobacco Year quit tobacco: 1970 - 1PPD x 25 Years Second hand smoke exposure: No Smoking risk assessment/counseling performed?: No Alcohol intake: never Lives independently: Yes Household members: family Housing: House Marital status: Single Current occupational status: retired History of recent travel: No Current gender identity: Female Physical Exam Const: COMMON NORMALS: no acute distress, patient oriented x3, no limitations, healthy appearing, alert and well nourished GENERAL APPEARANCE: cooperative, comfortable, well kempt and well developed ORIENTATION/CONSCIOUSNESS: Yes awake, Yes oriented to person, Yes oriented to place and Yes oriented to time HENMT: COMMON NORMALS: normocephalic, atraumatic, hearing grossly normal bilaterally, external ears normal, EAC's normal, TM's normal bilaterally, Normal external nose present, Normal nasal mucous membranes and turbinates present, moist oral mucous membranes, oropharynx normal, dentition normal and gingiva normal HEAD & SCALP: normal to inspection, normocephalic and atraumatic FACE & SINUS: normal facial exam NOSE: Normal external nose present and Normal nasal mucous membranes and turbinates present EXTERNAL EAR: Yes external ears normal EXTERNAL AUDITORY CANAL: EAC's normal TYMPANIC MEMBRANE: TM's normal bilaterally MOUTH: Normal oral and palatal mucosa present, lip normal and tongue normal THROAT: no uvular edema Eye: COMMON NORMALS: Equal, round and reactive pupils present, EOMs intact bilaterally, conjunctivae normal, no scleral icterus and normal visual riggs by confrontation GENERAL EYE: appearance normal, both eyes and all related structures and normal light reflex VISUAL ACUITY: Yes acuity normal ALIGNMENT: Yes alignment normal PERIORBITAL: periorbital findings normal EYELID: eyelids normal CONJUNCTIVA: Yes conjunctivae normal SCLERA: sclerae normal PUPIL: Yes Equal, round and reactive pupils present and Yes Pupil accommodation reflex normal DIRECT OPHTHALMOSCOPY: Yes normal light reflex Neck/C-Spine: COMMON NORMALS: full ROM, no lymphadenopathy, supple, no meninge al signs and no JVD GENERAL: Yes normal visual inspection CAROTIDS: Yes normal carotid upstroke CERVICAL SPINE: Yes cervical ROM normal Lymph: LYMPHATIC: no lymphadenopathy noted Chest: COMMONS NORMALS: normal inspection of the chest CHEST: Yes Symmetrical chest wall rise Resp: COMMON NORMALS: normal respiratory effort, No retractions, No use of accessory muscles and clear to auscultation bilaterally EFFORT & INSPECTION: Yes able to speak in complete sentences and Yes symmetric chest movement AUSCULTATION: clear to auscultation bilaterally Cardio: COMMON NORMALS: no JVD, regular rate, regular rhythm, S1 normal heart sound present, S2 normal heart sound present, No murmurs present (Cardio) and Peripheral pulses 2+ throughout RATE: regular rate RHYTHM: regular rhythm HEART SOUNDS: S1 normal heart sound present and S2 normal heart sound present PERIPHERAL PULSES: Peripheral pulses 2+ throughout GI: COMMON NORMALS: Soft to palpation and non-tender INSPECTION: Yes normal to inspection AUSCULTATION: Yes Hypoactive bowel sounds present PALPATION: Yes Soft to palpation, No Tenderness to palpation present (GI), No Guarding due to palpation present (GI), No Abdominal wall crepitus present and No Rebound tenderness present RECTAL EXAM: deferred : COMMON NORMALS: Yes no CVA tenderness BLADDER/KIDNEY EXAM: Yes no CVA tenderness Back/Pelvis: COMMON NORMALS: no CVA tenderness, thoracic and lumbar spine normal to inspection, no thoracic nor lumbar tenderness and thoraco-lumbar ROM normal Extremity: COMMON NORMALS: normal to inspection, full ROM, capillary refill normal, no calf tenderness and no pedal edema Neuro: COMMON NORMALS: patient oriented x3, CN's II-XII intact bilaterally, moves all extremities, no focal motor deficits, no sensory deficits noted and gait normal SENSORIUM/ORIENTATION: Yes alert, Yes oriented to person, Yes o riented to place and Yes oriented to time MENINGEAL SIGNS: Yes no meningeal signs SPEECH: speech normal GAIT: Yes Normal gait present MOTOR EXAM: 5/5 motor strength present throughout, Pronator motor function not present and no tremor noted Psych: COMMON NORMALS: mental status grossly normal, Normal thought process present, cooperative, normal affect, speech normal and activity/motor behavior normal APPEARANCE: Yes well kempt SPEECH: Yes normal speech THOUGHT PROCESS: Normal thought process present THOUGHT CONTENT: Yes Normal thought content present INSIGHT: Good insight present (Psych) Skin: COMMON NORMALS: no rashes or lesions noted, no wounds, turgor normal and no jaundice GENERAL SKIN EXAM: no rashes or lesions noted and turgor normal Course ED course: Patient has been resting comfortably in the emergency department awaiting her test results. CT came back essentially benign lab work is unremarkable. Discussed this with patient who states her pain is an occasional sharp stabbing pain she does not have crampy pain she does not have nausea or vomiting associated with it. She states lately she has not been constipated. She states that she is feeling better currently, offered admission patient prefers to go home secondary to concerns of Covid exposure. She denies any potential chance of that as they have been isolated at home and if they do go out they were masks and social distance. She is afebrile she is nontoxic- appearing she agrees with plan to hydrate well and take [id number] anti- inflammatories for potential myofascial strain. Vital Signs: Vital signs: Vital Signs Temperature 99.2 F 06/22/20 10:13 Pulse Rate 86 06/22/20 12:57 Respiratory Rate 18 06/22/20 12:57 Blood Pressure 158/79 06/22/20 12:57 Pulse Oximetry 97 06/22/20 12:57 MDM - Abdominal Pain Differential Diagnosis: Differential diagnosis abdominal pain: Likely abdominal pain, constipation and small bowel obstruction Lab Data: Labs: Lab Results 06/22/20 06/22/20 06/22/20 Range/Units 10:28 10:28 10:28 WBC 5.8 (4.0-10.0) 10^3/ uL RBC 4.08 L (4.1-5.3) 10^6/u L Hgb 12.5 (11.5-15.3) g/dL Hct 38.4 (37.0-47.0) % MCV 94.1 (81-99) fL MCH 30.6 (28.0-34.0) pg MCHC 32.6 (30.0-36.0) g/dL RDW 13.6 (12.1-15.1) % Plt Count 125 L (130-400) 10^3/c mm MPV 11.7 H (7.4-10.4) fL Neut % (Auto) 63.9 % Lymph % (Auto) 24.2 % [place] % (Auto) 10.8 % Eos % (Auto) 0.0 % Baso % (Auto) 0.2 % Neut # (Auto) 3.73 (1.8-7.7) 10^3/u L Lymph # (Auto) 1.4 (0.8-4.8) 10^3/u L [place] # (Auto) 0.6 (0.2-0.9) 10^3/u L Eos # (Auto) 0.0 (0.0-0.8) 10^3/u L Baso # (Auto) 0.0 (0.0-0.1) 10^3/u L Nucleated RBC % (a uto) 0 % Nucleated RBCs # 0.0 /100WBC ESR 100 H (0-15) mm/hr Sodium 136 (136-145) mmol/L Potassium 3.4 L (3.5-5.1) mmol/L Chloride 97 L (98-107) mmol/L Carbon Dioxide 25 (22-29) mmol/L Anion Gap 17.4 (5-19) BUN 35 H (8-23) mg/dL Creatinine 1.0 H (0.5-0.9) mg/dL GFR Calculation Not Reportable Glucose 100 (65-115) mg/dL Calculated Osmolal ity 290 (285-295) mOsm/k g Lactate (0.5-2.2) mmol/L Calcium 9.1 (8.5-10.5) mg/dL Total Bilirubin 0.2 (0.15-1.2) mg/dL AST 16 (0-32) U/L ALT 8 (0-33) U/L Alkaline Phosphata se 84 (35-105) IU/L Troponin T Gen 5 n g/L (0-10) ng/L Total Protein 6.4 L (6.6-8.7) g/dL Albumin 3.8 (3.5-5.2) g/dL Globulin 2.6 (1.3-4.6) g/dL Lipase 34 (13-60) U/L Urine Color (Yellow) Urine Appearance (CLEAR) Urine pH (5-7) Ur Specific Gravit y (1.005-1.030) Urine Protein (Negative) Urine Glucose (UA) (Normal) Urine Ketones (Negative) Urine Blood (Negative) Urine Nitrate (Negative) Urine Bilirubin (Negative) Urine Urobilinogen (Negative) mg/dL Ur Leukocyte Susie ase (Negative) Urine RBC (0-2) /hpf Urine WBC (0-5) /hpf Ur Squamous Epith Cells (0-5) /hpf Amorphous Sediment /hpf Urine Bacteria (NONE) /hpf 06/22/20 06/22/20 06/22/20 Range/Units 10:28 10:28 11:36 WBC (4.0-10.0) 10^3/ uL RBC (4.1-5.3) 10^6/u L Hgb (11.5-15.3) g/dL Hct (37.0-47.0) % MCV (81-99) fL MCH (28.0-34.0) pg MCHC (30.0-36.0) g/dL RDW (12.1-15.1) % Plt Count (130-400) 10^3/c mm MPV (7.4-10.4) fL Neut % (Auto) % Lymph % (Auto) % [place] % (Auto) % Eos % (Auto) % Baso % (Auto) % Neut # (Auto) (1.8-7.7) 10^3/u L Lymph # (Auto) (0.8-4.8) 10^3/u L [place] # (Auto) (0.2-0.9) 10^3/u L Eos # (Auto) (0.0-0.8) 10^3/u L Baso # (Auto) (0.0-0.1) 10^3/u L Nucleated RBC % (a uto) % Nucleated RBCs # /100WBC ESR (0-15) mm/hr Sodium (136-145) mmol/L Potassium (3.5-5.1) mmol/L Chloride (98-107) mmol/L Carbon Dioxide (22-29) mmol/L Anion Gap (5-19) BUN (8-23) mg/dL Creatinine (0.5-0.9) mg/dL GFR Calculation Glucose (65-115) mg/dL Calculated Osmolal ity (285-295) mOsm/k g Lactate 0.8 (0.5-2.2) mmol/L Calcium (8.5-10.5) mg/dL Total Bilirubin (0.15-1.2) mg/dL AST (0-32) U/L ALT (0-33) U/L Alkaline Phosphata se (35-105) IU/L Troponin T Gen 5 n g/L 29 H (0-10) ng/L Total Protein (6.6-8.7) g/dL Albumin (3.5-5.2) g/dL Globulin (1.3-4.6) g/dL Lipase (13-60) U/L Urine Color Yellow (Yellow) Urine Appearance Sl hazy (CLEAR) Urine pH 5 (5-7) Ur Specific Gravit y 1.020 (1.005-1.030) Urine Protein 3+ H (Negative) Urine Glucose (UA) Norm (Normal) Urine Ketones Negative (Negative) Urine Blood Neg (Negative) Urine Nitrate Negative (Negative) Urine Bilirubin Neg (Negative) Urine Urobilinogen Norm (Negative) mg/dL Ur Leukocyte Susie ase Negative (Negative) Urine RBC None (0-2) /hpf Urine WBC 0-4 H (0-5) /hpf Ur Squamous Epith Cells 5-10 H (0-5) /hpf Amorphous Sediment 3+ /hpf Urine Bacteria 1+ H (NONE) /hpf Discharge Plan Discharge Condition: Stable Prescriptions: No Action ferrous sulfate 325 mg (65 mg iron) tablet,delayed release (DR/EC) 325 mg PO BID RF: 0 furosemide 40 mg tablet 40 mg PO BID RF: 0 budesonide [Pulmicort] 0.25 mg/2 mL suspension for nebulization 0.25 mg inhalation BID 30 Days Qty: 120 RF: 3 Perforomist 20 mcg/2 mL solution for nebulization 2 ml inhalation BID 30 Days Qty: 120 RF: 3 revefenacin 175 mcg/3 mL solution for nebulization 175 mcg inhalation DAILY 30 Days Qty: 90 RF: 3 Eliquis 5 mg tablet 5 mg PO BID 30 Days Qty: 60 RF: 5 Hold Instructions: Resume on 05/10/20. nitroglycerin 0.4 mg tablet, sublingual 0.4 mg SUBLINGUAL Q5M PRN (Reason: chest pain) 30 Days Qty: 30 RF: 3 isosorbide mononitrate 30 mg tablet extended release 24 hr 30 mg PO DAILY 30 Days Qty: 30 RF: 5 metoprolol tartrate 25 mg tablet 25 mg PO BID Qty: 180 RF: 3 magnesium hydroxide [Milk of Magnesia] 400 mg/5 mL Suspension See Rx Instructions .ROUTE .COMPLEX RF: 0 fluticasone propionate [Flonase Allergy Relief] 50 mcg/actuation [place],Suspension 2 spray INTRANASAL QAM RF: 0 Daliresp 250 mcg tablet 250 mcg PO DAILY RF: 0 omeprazole 40 mg capsule,delayed release(DR/EC) 40 mg PO DAILY RF: 0 Lantus Solostar U-100 Insulin 100 unit/mL (3 mL) insulin pen 34 unit SUBCUT BEDTIME RF: 0 sucralfate 100 mg/mL suspension See Rx Instructions .ROUTE .COMPLEX RF: 0 Calcium 600 + D(3) 600 mg(1,500mg) -200 unit Tablet 1 tab PO DAILY RF: 0 Vitamin C 500 mg Tablet 500 mg PO DAILY RF: 0 baclofen 10 mg Tablet 10 mg PO TID PRN (Reason: Muscle Spasm) RF: 0 magnesium 250 mg Tablet 250 mg PO DAILY RF: 0 ProAir HFA 90 mcg/actuation Hfa Aerosol Inhaler 1 - 2 puff INHALATION Q4H PRN (Reason: Shortness Of Breath) RF: 0 coQ10 (ubiquinol) 100 mg Capsule 100 mg PO DAILY RF: 0 Trulicity 0.75 mg/0.5 mL pen injector See Rx Instructions .ROUTE .COMPLEX RF: 0 sennosides-docusate sodium 8.6-50 mg Tablet 1 tab-cap PO BID PRN (Reason: Constipation) RF: 0 oxycodone-acetaminophen 10-325 mg tablet 1 tab PO Q8H PRN (Reason: Pain, Mild) RF: 0 carbidopa-levodopa 25-100 mg tablet 1 tab PO BID RF: 0 Saccharomyces boulardii [Florastor] 250 mg Capsule 500 mg PO BID RF: 0 lactulose 10 gram/15 mL solution 15 ml PO BID PRN (Reason: Constipation) RF: 0 pravastatin 40 mg tablet 40 mg PO DAILY RF: 0 clonazepam 1 mg tablet 1 mg PO BEDTIME RF: 0 pramipexole 0.5 mg tablet 1 mg PO BEDTIME RF: 0 trazodone 100 mg tablet 100 mg PO BEDTIME RF: 0 oxybutynin chloride 5 mg tablet 5 mg PO TID RF: 0 cyanocobalamin (vitamin B-12) 1,000 mcg/mL solution 1,000 mcg IM Q30D RF: 0 gabapentin 300 mg capsule 300 mg PO TID RF: 0 allopurinol 300 mg tablet 300 mg PO BID RF: 0 Zyrtec 10 mg Capsule 10 mg PO BEDTIME RF: 0 Lumigan 0.01 % drops 1 drp ophthalmic (eye) BEDTIME RF: 0 levothyroxine 112 mcg capsule 112 mcg PO DAILY Qty: 30 RF: 0 potassium chloride [Klor-Con 10] 10 mEq tablet extended release 20 meq PO DAILY Qty: 20 RF: 0 Discharge Orders: Discharge ED (Routine); Ordered 06/22/20 Ordered By: India Delaney Referrals: Terence Rogers [Primary Care Provider] - Discharge Diet: Usual diet Discharge Activity: Resume usual activity Patient Instructions: Abdominal Pain - Adult Coding Level of Care Code ED Public Information Officer for Chg Fwd Exam Comprehensive
--- NOTE | 2020-06-22 10:43 | XRR_ITS ---
PROCEDURE INFORMATION: Exam: XR Chest, 1 View Exam date and time: 06/22/2020 10:46 AM Age: 79 years old Clinical indication: Other: Upper abd pain TECHNIQUE: Imaging protocol: XR of the chest Views: 1 view. COMPARISON: CR XR chest 1V portable [id number] 02/15/2020 2:16 PM FINDINGS: Lungs: Curvilinear opacities at the lung bases and perihilar regions likely represents scarring and/or atelectasis. There is some hazy density in the left upper lung field which was not seen on the prior study. Pleural space: Unremarkable. No pleural effusion. No pneumothorax. Heart/Mediastinum: Unremarkable. No cardiomegaly. Bones/joints: There are degenerative changes in the thoracic spine and across the acromioclavicular joints. Soft tissues: Heart size not optimally evaluated with a single AP view of the chest. XR/XR chest 1V portable [id number] IMPRESSION: 1. Hazy opacity at the left lung apex is nonspecific. Differential includes pneumonia. 2. There are curvilinear opacities at the lung bases and perihilar regions most consistent with scarring and/or atelectasis.
--- NOTE | 2020-06-22 10:43 | CTR_ITS ---
PROCEDURE INFORMATION: Exam: CT Abdomen And Pelvis Without Contrast Exam date and time: 06/22/2020 10:57 AM Age: 79 years old Clinical indication: Abdominal pain; Prior surgery; Surgery type: Gb, hernia; Additional info: Rlq pain TECHNIQUE: Imaging protocol: Computed tomography of the abdomen and pelvis without contrast. Radiation optimization: All CT scans at this facility use at least one of these dose optimization techniques: automated exposure control; mA and/or kV adjustment per patient size (includes targeted exams where dose is matched to clinical indication); or iterative reconstruction. Other contrast: Oral, READICAT, 450; COMPARISON: CT abdomen pelvis wo con [id number] 08/01/2019 11:17 AM RADIATION DOSE METRICS: Total DLP (mGy-cm): 1071.04 FINDINGS: Lungs: Streaky densities at the lung bases are most consistent with scarring and/or atelectasis. Heart: There are calcifications in the mitral valve. Liver: Normal. No mass. Gallbladder and bile ducts: The gallbladder has been removed. Pancreas: Normal. No ductal dilation. Spleen: Normal. No splenomegaly. Adrenal glands: Normal. No mass. Kidneys and ureters: Bilateral renal cysts with benign features the larger of which measures 3.0 cm off the superior pole of the left kidney. There is a 4 mm hyperdensity at the anterior aspect of the right kidney which is too small to further characterize. Stomach and bowel: There is diverticulosis of the colon without evidence of diverticulitis. Hyperdense oral contrast in the cecum is causing artifact obscuring adjacent structures. There are no appreciable pericecal inflammatory changes to suggest appendicitis. Appendix: See Stomach and bowel finding. Intraperitoneal space: Unremarkable. No free air. No significant fluid collection. Vasculature: Calcified plaque is present within multiple vascular structures. Lymph nodes: Unremarkable. No enlarged lymph nodes. Urinary bladder: Unremarkable as visualized. Reproductive: There are calcified fibroids in the uterus. Bones/joints: There are severe degenerative changes across the pubic symphysis. There are degenerative changes in the visualized spine. Multilevel lumbar disc bulges. Soft tissues: Diastasis of the rectus abdominus. Tiny fat containing umbilical hernia. CT/CT abdomen pelvis w con* [id number] IMPRESSION: Hyperdense oral contrast in the cecum is causing artifact obscuring adjacent structures. There are no appreciable pericecal inflammatory changes to suggest appendicitis. COMMENTS: Consistent with the [employer]'s Incidental Findings Committee white paper (J Am Elvis Radiol 2018): Any incidental renal lesion less than 1 cm or classified as too small to characterize, or any incidental cystic renal lesion characterized as simple-appearing, is likely benign. No follow-up imaging is recommended for these lesions per consensus recommendations based on imaging criteria. Radiation Dose CTDIVOL = (mGy): DLP = 1071.04 (mGy-cm)
[2020-06-22 10:57] LABS: Basophils % 0.2 %; Hematocrit 38.4 % (37.0-47.0); Hemoglobin 12.5 g/dL (11.5-15.3); Lymphocytes # 1.4 10^3/uL (0.8-4.8); Lymphocytes % 24.2 %; Mean Corpuscular HGB Conc 32.6 g/dL (30.0-36.0); Mean Corpuscular Hemoglobin 30.6 pg (28.0-34.0); Mean Corpuscular Volume 94.1 fL (81-99); Mean Platelet Volume 11.7 fL (7.4-10.4); Monocytes # 0.6 10^3/uL (0.2-0.9); Monocytes % 10.8 %; Neutrophils # 3.73 10^3/uL (1.8-7.7); Neutrophils % 63.9 %; Nucleated Red Blood Cells % 0 %; Platelet Count 125 10^3/cmm (130-400); Red Blood Count 4.08 10^6/uL (4.1-5.3); Red Cell Distribution Width 13.6 % (12.1-15.1); White Blood Count 5.8 10^3/uL (4.0-10.0)
[2020-06-22 11:14] VITALS: RESP 18
[2020-06-22] MEDS: sodium chloride 0.9% 1,000 ML 999 ML IV (11:14)
[2020-06-22] MEDS: ondansetron 2 mg/ML SDV 2 mL 4 MG IVP (11:14)
[2020-06-22] MEDS: fentaNYL 50 mcg/mL INJ 2mL IVP (11:14)
[2020-06-22 11:17] LABS: Lactate (Lactic Acid level) 0.8 mmol/L (0.5-2.2)
[2020-06-22 11:18] LABS: Alanine Aminotransferase 8 U/L (0-33); Albumin Level 3.8 g/dL (3.5-5.2); Alkaline Phosphatase 84 IU/L (35-105); Anion Gap 17.4 (5-19); Aspartate Amino Transferase 16 U/L (0-32); Blood Urea Nitrogen 35 mg/dL (8-23); Calcium 9.1 mg/dL (8.5-10.5); Carbon Dioxide 25 mmol/L (22-29); Chloride 97 mmol/L (98-107); Globulin 2.6 g/dL (1.3-4.6); Glucose 100 mg/dL (65-115); Lipase 34 U/L (13-60); Osmolality Calculated 290 mOsm/kg (285-295); Potassium 3.4 mmol/L (3.5-5.1); Sodium 136 mmol/L (136-145); Total Bilirubin 0.2 mg/dL (0.15-1.2); Total Protein 6.4 g/dL (6.6-8.7)
[2020-06-22 11:19] LABS: Troponin T (5th) Once 29 ng/L (0-10)
[2020-06-22 11:44] VITALS: BP 160/74; PULSE 88; RESP 18; O2SAT 97
[2020-06-22 11:45] LABS: Erythrocyte Sedimentation Rate 100 mm/hr (0-15)
[2020-06-22 12:11] LABS: Add Urine Culture? No; Add Urine Microscopic? YES; Amorphous Sediment Urine 3+ /hpf; Bacteria Urine 1+ /hpf; Bilirubin Urine Neg (Negative); Blood Urine Neg (Negative); Glucose Urine UA Norm (Normal); Ketones Urine Negative (Negative); Leukocyte Esterase Urine Negative (Negative); Nitrate Urine Negative (Negative); Protein Urine 3+ (Negative); Urine Appearance SL Hazy (CLEAR); Urine Color Yellow (Yellow); Urobilinogen Urine Norm (Negative); WBC Urine 0-4 /hpf (0-5); pH Urine 5 (5-7)
[2020-06-22 12:57] VITALS: BP 158/79; PULSE 86; RESP 18; O2SAT 97
--- NOTE | 2020-06-22 13:24 | PC.NURSE ---
patient returned from ct no complaints
[2020-06-22 13:40] VITALS: BP 168/79; PULSE 85; RESP 18; O2SAT 97
== END 2020-06-22 13:43 ==
PROVIDERS: Emergency Provider Emergency Medicine; PCP Family Medicine
DX: R10.9 Unspecified abdominal pain (principal); Z79.01 Long term (current) use of anticoagulants; Z79.4 Long term (current) use of insulin; J44.9 Chronic obstructive pulmonary disease, unspecified; I11.0 Hypertensive heart disease with heart failure; I50.30 Unspecified diastolic (congestive) heart failure; E11.9 Type 2 diabetes mellitus without complications; Z87.440 Personal history of urinary (tract) infections; Z87.891 Personal history of nicotine dependence
CPT/HCPCS: 12345; 71045; 74176; 74177; 80053; 81001; 83605; 83690; 84484; 85025; 85651; 96361; 96374; 96375; 99282; 99283; J2405; J3010; J7030

== ENCOUNTER 2020-06-27 09:26 | Observation (INO) | payer MEDICARE, MEDICAID, SELFPAY ==
[2020-06-27] VITALS (18 sets, daily range): BP systolic 116–159; BP diastolic 55–81; PULSE 21–99; RESP 17–96; TEMP 36.3–36.9; O2SAT 93–100; BMI 26.9
--- NOTE | 2020-06-27 09:52 | ECG_ITS ---
[facility] Test Date: 2020-06-27 Pat Name: Cathryn Ramsey Department: Room: Gender: Female [place] Technician: : 1940 Requested By: Jason Crespo Order Number: [id number] Rodolfo MD: Vanessa Gregorio M.D. Measurements Intervals [place] Rate: 90 P: 65 DE: 247 QRS: 66 QRSD: 130 T: 35 QT: 389 QTc: 478 Interpretive Statements SINUS RHYTHM WITH FIRST DEGREE AV BLOCK RIGHT BUNDLE BRANCH BLOCK [120+ ms QRS DURATION, UPRIGHT V1, 40+ ms S IN I/aVL/V4/V5/V6] Compared to ECG 02/15/2020 16:35:43 No significant changes Electronically Signed On 06-27-2020 18:33:56 TORCH CUTTER by Vanessa Gregorio M.D. [id number] f
--- NOTE | 2020-06-27 09:52 | XR_ITS ---
WS: [id number] PORTABLE CHEST HISTORY: chest pain COMPARISON: 06/22/2020 Improving opacification in the LEFT suprahilar location as compared to the most recent study. Linear areas of atelectasis at the lingula and RIGHT lung base. No pleural effusion or pneumothorax. Cardiac size: Mildly enlarged cardiac silhouette. Mediastinum/Aorta: Moderate atherosclerosis aorta. No osseous abnormality seen. XR/XR chest 1V portable [id number] IMPRESSION: 1. Improving pneumonia with minimal residual in the LEFT upper lung field. 2. Stable areas of scarring or atelectasis at the lingula and RIGHT lung base.
--- NOTE | 2020-06-27 10:16 | W.ED.CHESTPA ---
HPI - Chest Pain General: Chief Complaint: Chest Pain Stated Complaint: COVID+/CP/ DIFFICULTY BREATHING Time Seen by Provider: 06/27/20 09:52 History of Present Illness: HPI narrative: Patient is a well-appearing 79-year-old female seen for chest pressure, lightheadedness, and shortness of breath which occurred at 4 AM when she woke up this morning. She states it felt like an elephant sitting on her chest, rated an 8 of 10, and states that went away without any intervention. She came by ambulance and they did not give her aspirin. At this time, she is pain-free. She normally wears 3 L nasal cannula and is saturating at 100% on her 3 L at this present time. She states that she had a heart attack over 10 years ago and takes Eliquis daily. She also states that she was diagnosed with COVID-19 3 days ago at a [facility] facility outside of the [facility] system. She has no other acute complaints. Review of Systems General: Reports: 10 or more systems reviewed and unremarkable except in HPI and below PFSH ED PFSH: Medical History Acute on chronic renal failure BUN 24, Cr 0.9 on 11/23/2019 Anemia -on iron supplementation -continue to monitor H/H -baseline Hg appears to be around 10 Atypical chest pain Cardiac [place] [address] Monaco. She had no significant coronary artery disease at that time. Bradycardia Chronic anticoagulation Chronic back pain Chronic kidney disease -baseline Cr appears to be around 2-2.3 -renally dose meds, avoid nephrotoxins Chronic kidney disease COPD (chronic obstructive pulmonary disease) -no acute exacerbation -oxygen dependent at baseline, 3 L at baseline -continue to monitor respiratory status Diastolic heart failure -no acute exacerbation -Echo as noted above Diastolic heart failure Former smoker Gout History of pulmonary embolism -is on AC with Eliquis Hypertension Hypothyroidism Intermittent atrial fibrillation Normal coronary angiogram Cardiac angiogram done in September 2015 Osteoarthritis Symptomatic bradycardia Syncope Type 2 diabetes mellitus UTI (urinary tract infection) -UA indicative of infection -urine cx: yadav-sensitive E.coli -on Ceftriaxone; will d/c on cefuroxime Surgical History H/O left knee surgery History of cholecystectomy Tubal ligation status Family History Father CAD (coronary artery disease) Family history of premature coronary artery disease Hypertension Mother Cancer Chronic kidney disease (CKD) Hypertension Sister Hyperlipidemia Hypertension Daughter No problems noted. Other Diabetes Denies family history of Clotting disorder Dementia Psychiatric illness Suicide Anesthesia complication Bleeding disorder Lung disease Stroke Social History Smoking and tobacco status: former smoker Quit status (tobacco): has quit using tobacco Year quit tobacco: 1970 - PD x 25 Years Second hand smoke exposure: No Smoking risk assessment/counseling performed?: No Alcohol intake: never Lives independently: Yes Household members: family Housing: House Marital status: Single Current occupational status: retired History of recent travel: No Current gender identity: Female Physical Exam Const: COMMON NORMALS: no acute distress, patient oriented x3 and alert HENMT: COMMON NORMALS: normocephalic and atraumatic HEAD & SCALP: normocephalic and atraumatic Eye: COMMON NORMALS: Equal, round and reactive pupils present, EOMs intact bilaterally and no scleral icterus PUPIL: Yes Equal, round and reactive pupils present Resp: COMMON NORMALS: normal respiratory effort and No retractions Cardio: COMMON NORMALS: regular rate, regular rhythm and No murmurs present (Cardio) RATE: regular rate RHYTHM: regular rhythm GI: COMMON NORMALS: Normal to inspection, nondistended, normoactive bowel sounds present, Soft to palpation and non-tender PALPATION: Yes Soft to palpation Neuro: COMMON NORMALS: patient oriented x3 SENSORIUM/ORIENTATION: Yes alert Skin: COMMON NORMALS: no rashes or lesions noted GENERAL SKIN EXAM: no rashes or lesions noted Course Vital Signs: Vital signs: Vital Signs Temperature 97.6 F 06/27/20 16:10 Pulse Rate 74 06/27/20 16:10 Respiratory Rate 17 06/27/20 16:10 Blood Pressure 153/81 06/27/20 16:10 Pulse Oximetry 96 06/27/20 16:10 MDM - Chest Pain MDM Narrative: Medical decision making narrative: Patient remained hemodynamically stable throughout ED course. Chest pain resolved spontaneously prior to arrival. Troponin is mildly elevated and stable. Her story is compelling and her EKG does show J-point elevation which is new compared with prior EKGs. As such, she will be admitted to the hospital service for further observation and care. Lab Data: Labs: Lab Results 06/27/20 06/27/20 06/27/20 Range/Units 10:15 10:15 10:15 WBC 5.2 (4.0-10.0) 10^3/ uL RBC 4.10 (4.1-5.3) 10^6/u L Hgb 12.5 (11.5-15.3) g/dL Hct 39.3 (37.0-47.0) % MCV 95.9 (81-99) fL MCH 30.5 (28.0-34.0) pg MCHC 31.8 (30.0-36.0) g/dL RDW 13.3 (12.1-15.1) % Plt Count 146 (130-400) 10^3/c mm MPV 11.6 H (7.4-10.4) fL Neut % (Auto) 66.7 % Lymph % (Auto) 23.6 % [place] % (Auto) 7.7 % Eos % (Auto) 1.2 % Baso % (Auto) 0.2 % Neut # (Auto) 3.46 (1.8-7.7) 10^3/u L Lymph # (Auto) 1.2 (0.8-4.8) 10^3/u L [place] # (Auto) 0.4 (0.2-0.9) 10^3/u L Eos # (Auto) 0.1 (0.0-0.8) 10^3/u L Baso # (Auto) 0.0 (0.0-0.1) 10^3/u L Nucleated RBC % (a uto) 0 % Nucleated RBCs # 0.0 /100WBC Sodium 138 (136-145) mmol/L Potassium 4.7 (3.5-5.1) mmol/L Chloride 99 (98-107) mmol/L Carbon Dioxide 27 (22-29) mmol/L Anion Gap 16.7 (5-19) BUN 23 (8-23) mg/dL Creatinine 0.8 (0.5-0.9) mg/dL GFR Calculation Not Reportable Glucose 157 H (65-115) mg/dL Calculated Osmolal ity 293 (285-295) mOsm/k g Calcium 9.1 (8.5-10.5) mg/dL Total Bilirubin 0.2 (0.15-1.2) mg/dL AST 16 (0-32) U/L ALT < 5 (0-33) U/L Alkaline Phosphata se 98 (35-105) IU/L Troponin T Baselin e 31 H (0-10) ng/L Troponin T 120 Min [place] (0-10) ng/L Delta Troponin T (0-10) ABS# Total Protein 6.3 L (6.6-8.7) g/dL Albumin 3.6 (3.5-5.2) g/dL Globulin 2.7 (1.3-4.6) g/dL 12/18/20 Range/Units 12:11 WBC (4.0-10.0) 10^3/ uL RBC (4.1-5.3) 10^6/u L Hgb (11.5-15.3) g/dL Hct (37.0-47.0) % MCV (81-99) fL MCH (28.0-34.0) pg MCHC (30.0-36.0) g/dL RDW (12.1-15.1) % Plt Count (130-400) 10^3/c mm MPV (7.4-10.4) fL Neut % (Auto) % Lymph % (Auto) % [place] % (Auto) % Eos % (Auto) % Baso % (Auto) % Neut # (Auto) (1.8-7.7) 10^3/u L Lymph # (Auto) (0.8-4.8) 10^3/u L [place] # (Auto) (0.2-0.9) 10^3/u L Eos # (Auto) (0.0-0.8) 10^3/u L Baso # (Auto) (0.0-0.1) 10^3/u L Nucleated RBC % (a uto) % Nucleated RBCs # /100WBC Sodium (136-145) mmol/L Potassium (3.5-5.1) mmol/L Chloride (98-107) mmol/L Carbon Dioxide (22-29) mmol/L Anion Gap (5-19) BUN (8-23) mg/dL Creatinine (0.5-0.9) mg/dL GFR Calculation Glucose (65-115) mg/dL Calculated Osmolal ity (285-295) mOsm/k g Calcium (8.5-10.5) mg/dL Total Bilirubin (0.15-1.2) mg/dL AST (0-32) U/L ALT (0-33) U/L Alkaline Phosphata se (35-105) IU/L Troponin T Baselin e (0-10) ng/L Troponin T 120 Min [place] band 33.11 H (0-10) ng/L Delta Troponin T 2.11 (0-10) ABS# Total Protein (6.6-8.7) g/dL Albumin (3.5-5.2) g/dL Globulin (1.3-4.6) g/dL EKG Data^: EKG 1: EKG interpretation date: 06/27/20 EKG interpretation time: 09:33 Interpretation: Sinus rhythm with first-degree block, J-point elevation of leads V2 through V6 as well as leads II and I with no reciprocal inhibitions. These elevations are new when compared with prior Discharge Plan Discharge Patient Disposition: Placed in Observation Admit Provider: Gonzales Aragon Clinical Impression: Elevated troponin, COVID-19 Chest pain Qualifiers: Chest pain type: unspecified Qualified Code(s): R07.9 - Chest pain, unspecified Coding Level of Care Code ED Computer Salesperson Retail for Patrizia Corral
[2020-06-27 10:22] LABS: Basophils % 0.2 %; Eosinophils # 0.1 10^3/uL (0.0-0.8); Eosinophils % 1.2 %; Hematocrit 39.3 % (37.0-47.0); Hemoglobin 12.5 g/dL (11.5-15.3); Lymphocytes # 1.2 10^3/uL (0.8-4.8); Lymphocytes % 23.6 %; Mean Corpuscular HGB Conc 31.8 g/dL (30.0-36.0); Mean Corpuscular Hemoglobin 30.5 pg (28.0-34.0); Mean Corpuscular Volume 95.9 fL (81-99); Mean Platelet Volume 11.6 fL (7.4-10.4); Monocytes # 0.4 10^3/uL (0.2-0.9); Monocytes % 7.7 %; Neutrophils # 3.46 10^3/uL (1.8-7.7); Neutrophils % 66.7 %; Nucleated Red Blood Cells % 0 %; Platelet Count 146 10^3/cmm (130-400); Red Cell Distribution Width 13.3 % (12.1-15.1); White Blood Count 5.2 10^3/uL (4.0-10.0)
[2020-06-27 10:47] LABS: Alanine Aminotransferase < 5 U/L (0-33); Albumin Level 3.6 g/dL (3.5-5.2); Alkaline Phosphatase 98 IU/L (35-105); Aspartate Amino Transferase 16 U/L (0-32); Blood Urea Nitrogen 23 mg/dL (8-23); Calcium 9.1 mg/dL (8.5-10.5); Carbon Dioxide 27 mmol/L (22-29); Chloride 99 mmol/L (98-107); Globulin 2.7 g/dL (1.3-4.6); Glucose 157 mg/dL (65-115); Osmolality Calculated 293 mOsm/kg (285-295); Sodium 138 mmol/L (136-145); Total Bilirubin 0.2 mg/dL (0.15-1.2); Total Protein 6.3 g/dL (6.6-8.7)
[2020-06-27 10:48] LABS: Anion Gap 16.7 (5-19); Potassium 4.7 mmol/L (3.5-5.1)
[2020-06-27 10:49] LABS: Troponin(5th) Baseline 31 ng/L (0-10)
[2020-06-27] MEDS: aspirin 81 mg Chew Tablet 324 MG PO (11:17)
--- NOTE | 2020-06-27 11:19 | ECG_ITS ---
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 Measurements Intervals [place] Rate: 76 P: 47 [place]: 256 QRS: 56 QRSD: 129 T: 29 QT: 410 QTc: 463 Interpretive Statements SINUS RHYTHM WITH FIRST DEGREE AV BLOCK POSSIBLE RIGHT VENTRICULAR CONDUCTION DELAY [RSR (QR) IN V1/V2] Compared to ECG 06/27/2020 09:33:18 Right bundle-branch block no longer present Electronically Signed On 06-27-2020 18:34:19 MARINE EQUIPMENT ENGINEER by Vanessa Gregorio M.D. [id number]
[2020-06-27 12:39] LABS: Troponin 5 2HR 33.11 ng/L (0-10); Troponin 5 2HR Delta 2.11 ABS# (0-10)
--- NOTE | 2020-06-27 14:57 | P.HP_ITS ---
Providers/Chief Complaint Admitting Physician: Gonzales Aragon MD Primary Care Provider: Terence Rogers Chief Complaint: CP/ DIFFICULTY BREATHING/ COVID + History of Present Illness Vaibhav Ramsey is a 78 year old female with past medical history of diastolic heart failure, CKD, COPD on 3 L oxygen, paroxysmal A. fib, pulmonary embolism on chronic anticoagulation with Eliquis, type 2 diabetes mellitus, hypertension, hypothyroidism,came in with c/o chest pressure, lightheadedness, and shortness of breath which occurred at 4 AM when she woke up this morning. She states it felt like an elephant sitting on her chest, rated an 8 of 10 and radiating to both jaws,not relieved with sublingual nitro.she was tested COVID Positive on 06/26 and is also complaining of loss of taste,generalized body pain,fatigue. ECA Course : Imaging studies: Xray chest : Improving opacification in the LEFT suprahilar location as compared to the most recent study. Linear areas of atelectasis at the lingula and RIGHT lung base. No pleural effusion or pneumothorax. Cardiac size: Mildly enlarged cardiac silhouette. EKG: SINUS RHYTHM WITH FIRST DEGREE AV BLOCK. RIGHT BUNDLE BRANCH BLOCK. Pertinent labs: Baseline troponin: 31, 2-hour troponin: 33, delta troponin: 2.11 ECA medications: Aspirin 325 mg oral once. Review of Systems Card: Denies: palpitations, edema, swelling of feet/ankles or orthopnea Resp: Denies: productive cough or wheezing GI: Denies: abdominal pain, nausea, vomiting, diarrhea or constipation : Denies: flank pain Musc: Denies: extremity pain or extremity swelling Neuro: Denies: headache(s), difficulty walking or confusion Medications/Allergies Home Medications Medication Instructions Recorded Confirmed Last Taken Type Lumigan 1 drp OPHTHALMIC (EYE) BEDTIME 07/31/19 06/27/20 05/06/20 History Saccharomyces boulardii [Florastor] 500 mg PO BID 07/31/19 06/27/20 06/26/20 History Zyrtec 10 mg PO BEDTIME 07/31/19 06/27/20 06/26/20 History allopurinol 300 mg PO BID 07/31/19 06/27/20 06/27/20 History carbidopa-levodopa 2 tab PO BEDTIME 07/31/19 06/27/20 06/26/20 History clonazepam 1 mg PO BEDTIME 07/31/19 06/27/20 06/26/20 History cyanocobalamin (vitamin B-12) 1,000 mcg IM Q30D 07/31/19 06/27/20 06/24/20 History gabapentin 300 mg PO TID 07/31/19 06/27/20 06/27/20 History lactulose 15 ml PO BID PRN 07/31/19 06/27/20 05/06/20 History oxybutynin chloride 5 mg PO TID 07/31/19 06/27/20 06/27/20 History oxycodone-acetaminophen 1 tab PO Q8H PRN 07/31/19 06/27/20 05/06/20 History pramipexole 1 mg PO BEDTIME 07/31/19 06/27/20 06/26/20 History pravastatin 40 mg PO DAILY 07/31/19 06/27/20 06/26/20 History sennosides-docusate sodium 1 tab-cap PO BID PRN 07/31/19 06/27/20 05/06/20 History trazodone 100 mg PO BEDTIME 07/31/19 06/27/20 06/26/20 History levothyroxine 112 mcg PO DAILY #30 cap 08/06/19 06/27/20 06/27/20 Rx apixaban 5 mg tablet 5 mg PO BID 30 Days #60 tab 12/10/19 06/27/20 06/27/20 Rx nitroglycerin 0.4 mg sublingual 0.4 mg SUBLINGUAL Q5M PRN 30 Days 12/10/19 06/27/20 Unknown Rx tablet #30 tab Daliresp 250 mcg PO DAILY 12/15/19 06/27/20 06/27/20 History Lantus Solostar U-100 Insulin 34 unit SUBCUT BEDTIME 12/15/19 06/27/20 06/26/20 History fluticasone propionate [Flonase 2 spray INTRANASAL QAM 12/15/19 06/27/20 05/06/20 History Allergy Relief] magnesium hydroxide [Milk of See Rx Instructions .ROUTE .COMPLEX 12/15/19 06/27/20 05/06/20 History Magnesia] omeprazole 40 mg PO DAILY 12/15/19 06/27/20 06/27/20 History sucralfate See Rx Instructions .ROUTE .COMPLEX 12/15/19 06/27/20 05/06/20 History ferrous sulfate 325 mg (65 mg 325 mg PO BID tab 01/24/20 06/27/20 06/26/20 History iron) tablet,delayed release furosemide 40 mg tablet 40 mg PO BID tab 01/24/20 06/27/20 06/27/20 History isosorbide mononitrate 30 mg 30 mg PO DAILY 30 Days #30 tab 02/28/20 06/27/20 06/27/20 Rx tablet,extended release 24 hr metoprolol tartrate 25 mg tablet 25 mg PO BID #180 tab 02/28/20 06/27/20 06/27/20 Rx revefenacin 175 mcg/3 mL solution 175 mcg INHALATION DAILY 30 Days 06/11/20 06/27/20 Unknown Rx for nebulization #90 ml albuterol sulfate [ProAir HFA] 1 - 2 puff INHALATION Q4H PRN 06/22/20 06/27/20 Unknown History ascorbic acid (vitamin C) [Vitamin 500 mg PO DAILY 06/22/20 06/27/20 06/27/20 History C] baclofen 10 mg PO TID PRN 06/22/20 06/27/20 Unknown History calcium carbonate-vitamin D3 1 tab PO DAILY 06/22/20 06/27/20 06/27/20 History [Calcium 600 + D(3)] coQ10 (ubiquinol) 100 mg PO BEDTIME 06/22/20 06/27/20 06/26/20 History dulaglutide [Trulicity] See Rx Instructions .ROUTE .COMPLEX 06/22/20 06/27/20 Unknown History magnesium 250 mg PO DAILY 06/22/20 06/27/20 06/27/20 History Klor-Con 10 20 meq PO BID 06/27/20 06/27/20 06/27/20 History Pulmicort 0.25 mg INHALATION BID PRN 06/27/20 06/27/20 Unknown History docusate sodium 100 mg PO DAILY 06/27/20 06/27/20 06/27/20 History formoterol fumarate [Perforomist] 2 ml INHALATION BID PRN 06/27/20 06/27/20 Unknown History Allergies Allergy/AdvReac Type Severity Reaction Status Date / Time codeine Allergy patient Verified 06/19/20 08:11 doesn't recall Iodinated Contrast Media Allergy renal Verified 06/22/20 10:16 disease naproxen Allergy renal Verified 06/22/20 10:16 disease Penicillins Allergy hives Verified 06/22/20 10:16 shellfish derived Allergy unknown Verified 06/22/20 10:16 Sulfa (Sulfonamide Allergy itching Verified 06/22/20 10:16 Antibiotics) tramadol AdvReac makes me Verified 06/22/20 10:16 crazy garlic Allergy unknown Uncoded 06/22/20 10:16 PFSH Acute PFSH: Medical History Acute on chronic renal failure BUN 24, Cr 0.9 on 11/23/2019 Anemia -on iron supplementation -continue to monitor H/H -baseline Hg appears to be around 10 Atypical chest pain Cardiac [place] [address] Monaco. She had no significant coronary artery disease at that time. Bradycardia Chronic anticoagulation Chronic back pain Chronic kidney disease -baseline Cr appears to be around 2-2.3 -renally dose meds, avoid nephrotoxins Chronic kidney disease COPD (chronic obstructive pulmonary disease) -no acute exacerbation -oxygen dependent at baseline, 3 L at baseline -continue to monitor respiratory status Diastolic heart failure -no acute exacerbation -Echo as noted above Diastolic heart failure Former smoker Gout History of pulmonary embolism -is on AC with Eliquis Hypertension Hypothyroidism Intermittent atrial fibrillation Normal coronary angiogram Cardiac angiogram done in September 2015 Osteoarthritis Symptomatic bradycardia Syncope Type 2 diabetes mellitus UTI (urinary tract infection) -UA indicative of infection -urine cx: yadav-sensitive E.coli -on Ceftriaxone; will d/c on cefuroxime Surgical History H/O left knee surgery History of cholecystectomy Tubal ligation status Family History Father CAD (coronary artery disease) Family history of premature coronary artery disease Hypertension Mother Cancer Chronic kidney disease (CKD) Hypertension Sister Hyperlipidemia Hypertension Daughter No problems noted. Other Diabetes Denies family history of Clotting disorder Dementia Psychiatric illness Suicide Anesthesia complication Bleeding disorder Lung disease Stroke Social History Smoking and tobacco status: former smoker Quit status (tobacco): has quit using tobacco Year quit tobacco: 1971 - 1PPD x 25 Years Second hand smoke exposure: No Smoking risk assessment/counseling performed?: No Alcohol intake: never Lives independently: Yes Household members: family Housing: House Marital status: Single Current occupational status: retired History of recent travel: No Current gender identity: Female Vitals/I&O/Wt Last Vital Signs Temp 97.5 F L 06/27/20 09:30 Pulse 76 06/27/20 12:21 Resp 19 H 06/27/20 12:21 BP 130/64 06/27/20 12:21 Pulse Ox 99 06/27/20 12:21 Weight last 48 hrs Weight 71.214 kg Physical Exam Const: COMMON NORMALS: patient oriented x3 HENMT: COMMON NORMALS: normocephalic and atraumatic HEAD & SCALP: normocephalic and atraumatic Chest: COMMONS NORMALS: normal inspection of the chest CHEST: Yes Symmetrical chest wall rise Resp: COMMON NORMALS: normal respiratory effort and clear to auscultation bilaterally EFFORT & INSPECTION: Yes symmetric chest movement AUSCULTATIO N: clear to auscultation bilaterally Cardio: COMMON NORMALS: regular rate, regular rhythm, S1 normal heart sound present, S2 normal heart sound present, No gallops present (Cardio), No murmurs present (Cardio), No rub (Cardio) and Peripheral pulses 2+ throughout RATE: regular rate RHYTHM: regular rhythm HEART SOUNDS: S1 normal heart sound present and S2 normal heart sound present PERIPHERAL PULSES: Peripheral pulses 2+ throughout GI: COMMON NORMALS: Normal to inspection, nondistended, normoactive bowel sounds present, Soft to palpation, non-tender, No hepatosplenomegaly present and no masses AUSCULTATION: Yes normoactive bowel sounds PALPATION: Yes Soft to palpation and Yes No hepatosplenomegaly present RECTAL EXAM: deferred Extremity: COMMON NORMALS: no clubbing, cyanosis or edema and no pedal edema Neuro: COMMON NORMALS: patient oriented x3 Data : 06/27/20 10:15 06/27/20 10:15 A&P Assessment and plan (1) Chest pain: EKG is showing new j Point elevation in leads II and avf not present in prior studies. Patient describes typical cardiac chest pain. Troponins are flat. will continue to monitor with serial ekg. 6h Troponin Tele Has a echo done in 07/2019: With LVEF : 71 % No RWMA, MOD PAH (PASP :62 MM HG ) Continue Eliquis 5 mg p.o. twice daily Continue metoprolol tartrate 25 mg p.o. twice daily Continue sublingual nitro. Continue imdur 30 mg p.o. daily . Status: Acute Qualifiers: Chest pain type: unspecified Qualified Code(s): R07.9 - Chest pain, unspecified (2) COVID-19: Currently at baseline oxygen. We will continue Solu-Medrol 40MG IV daily Continue Eliquis Continue vitamin C Currently will hold remdesivir Status: Acute (3) Chronic respiratory failure with hypoxia and hypercapnia: Continue with nebs Continue supplemental oxygen as needed Status: Acute (4) GERD (gastroesophageal reflux disease): Status: Acute (5) Chronic kidney disease: Status: Acute Qualifiers: Chronic kidney disease stage: stage 2 (mild) Qualified Code(s): N18.2 - Chronic kidney disease, stage 2 (mild) (6) Diastolic heart failure: Currently compensated. We will continue with Lasix 40MG oral twice daily Status: Acute Qualifiers: Heart failure chronicity: unspecified Qualified Code(s): I50.30 - Unspecified diastolic (congestive) heart failure (7) Paroxysmal A-fib: Currently in sinus rhythm. Telemetry Status: Acute (8) Hypertension: Status: Acute Qualifiers: Hypertension type: essential hypertension Qualified Code(s): I10 - Essential (primary) hypertension (9) History of pulmonary embolism: On Eliquis 5mg q12 h daily Status: Acute Additional A&P Information DVT PPX: Not needed as the patient is on eliquis Code Status :Full Code Disposition:Home Attestations Medical Necessity Statement*: Patient needs t be in hospital for evaluation of chest pain and for COVID 19 Infection. Coding Level of Care Code Acute Medicaid Collection Specialist for g Fwd Diagnoses Chest pain R07.9 Chest pain type: unspecified COVID-19 U07.1 Chronic respiratory failure with hypoxia and hypercapnia J96.11; J96.12 GERD (gastroesophageal reflux disease) K21.9 Chronic kidney disease N18.2 Chronic kidney disease stage: stage 2 (mild) Diastolic heart failure I50.30 Heart failure chronicity: unspecified Paroxysmal A-fib I48.0 Hypertension I10 Hypertension type: essential hypertension History of pulmonary embolism Z86.711
[2020-06-27 16:51] LABS: Glucose Point of Care 107 mg/dL (70-110)
[2020-06-27] MEDS: cyanocobalamin 1,000 mcg/mL SDV 1000 MCG IM (19:13)
[2020-06-27] MEDS: apixaban 5 mg Tablet PO (19:13)
[2020-06-27] MEDS: FUROsemide 40 mg Tablet PO (19:14)
[2020-06-27] MEDS: metoprolol tartrate 25 mg Tablet PO (19:14)
[2020-06-27] MEDS: potassium chloride ER 20 mEq Tablet PO (19:14)
[2020-06-27] MEDS: allopurinol 300 mg Tablet PO (19:14)
[2020-06-27] MEDS: ferrous sulfate EC 325 mg Tablet PO (19:14)
[2020-06-27] MEDS: famotidine 20 mg Tablet PO (19:14)
[2020-06-27 20:14] LABS: Glucose Point of Care 181 mg/dL (70-110)
[2020-06-27] MEDS: insulin glargine 100 units/1 mL 34 UNIT SUBCUT (20:53)
[2020-06-27] MEDS: oxybutynin 5 mg Tablet PO (20:53)
[2020-06-27] MEDS: carbidopa-levodopa 25-100mg Tablet 2 EACH PO (20:54)
[2020-06-27] MEDS: gabapentin 300 mg Capsule PO (20:54)
[2020-06-27] MEDS: CLONazepam 1 mg Tablet PO (20:54)
[2020-06-27] MEDS: pramipexole 0.25 mg Tablet 1 MG PO (20:54)
[2020-06-27] MEDS: trazodone 100 mg Tablet PO (20:55)
[2020-06-27] MEDS: albuterol 8 gm MDI 1 PUFF INHALATION (21:17)
[2020-06-28] VITALS (9 sets, daily range): BP systolic 134–159; BP diastolic 69–82; PULSE 78–113; RESP 16–20; TEMP 36.3–36.9; O2SAT 97–98
[2020-06-28 04:54] LABS: Basophils % 0.3 %; Eosinophils % 0.3 %; Hematocrit 37.3 % (37.0-47.0); Hemoglobin 11.7 g/dL (11.5-15.3); Lymphocytes # 0.5 10^3/uL (0.8-4.8); Lymphocytes % 12.2 %; Mean Corpuscular HGB Conc 31.4 g/dL (30.0-36.0); Mean Corpuscular Hemoglobin 29.9 pg (28.0-34.0); Mean Corpuscular Volume 95.4 fL (81-99); Mean Platelet Volume 11.9 fL (7.4-10.4); Monocytes # 0.1 10^3/uL (0.2-0.9); Monocytes % 1.3 %; Neutrophils # 3.22 10^3/uL (1.8-7.7); Neutrophils % 85.1 %; Nucleated Red Blood Cells % 0 %; Platelet Count 157 10^3/cmm (130-400); Red Blood Count 3.91 10^6/uL (4.1-5.3); Red Cell Distribution Width 13.2 % (12.1-15.1); White Blood Count 3.8 10^3/uL (4.0-10.0)
[2020-06-28 05:29] LABS: Thyroid Stimulating Hormone 0.77 uIU/mL (0.27-4.20)
[2020-06-28 05:30] LABS: Procalcitonin 0.05 ng/mL (0-0.5)
[2020-06-28 06:18] LABS: Alanine Aminotransferase 6 U/L (0-33); Albumin Level 3.5 g/dL (3.5-5.2); Alkaline Phosphatase 97 IU/L (35-105); Aspartate Amino Transferase 16 U/L (0-32); Blood Urea Nitrogen 26 mg/dL (8-23); Calcium 9.8 mg/dL (8.5-10.5); Carbon Dioxide 24 mmol/L (22-29); Chloride 101 mmol/L (98-107); Creatinine Clr Calc Pharmacy 51.3913; Globulin 3.4 g/dL (1.3-4.6); Glucose 261 mg/dL (65-115); Magnesium 1.8 mg/dL (1.7-2.3); Osmolality Calculated 298 mOsm/kg (285-295); Sodium 137 mmol/L (136-145); Total Bilirubin 0.2 mg/dL (0.15-1.2); Total Protein 6.9 g/dL (6.6-8.7)
[2020-06-28 06:38] LABS: Glucose Point of Care 300 mg/dL (70-110)
[2020-06-28 06:43] LABS: INR 1.12 (0.8-1.2)
--- NOTE | 2020-06-28 07:00 | ECG_ITS ---
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 Measurements Intervals [place] Rate: 81 P: 23 [place]: 296 QRS: 47 QRSD: 132 T: 10 QT: 406 QTc: 473 Interpretive Statements SINUS RHYTHM WITH FIRST DEGREE AV BLOCK INTRAVENTRICULAR CONDUCTION DELAY [130+ ms QRS DURATION] POSSIBLE INFERIOR MYOCARDIAL INFARCTION [30 ms Q WAVE IN II/aVF], PROBABLY OLD WARNING: DATA QUALITY MAY AFFECT INTERPRETATION Compared to ECG 06/27/2020 12:07:10 Intraventricular conduction delay now present Myocardial infarct finding now present Electronically Signed On 06-30-2020 21:22:58 GOLF COACH by Radha Brown M.D. [id number]
[2020-06-28 07:59] LABS: Anion Gap 16.8 (5-19)
[2020-06-28 08:00] LABS: Potassium 4.8 mmol/L (3.5-5.1)
[2020-06-28] MEDS: calcium carb-vit d 600mg/400unit 1 Tablet 1 EACH PO (08:08)
[2020-06-28] MEDS: famotidine 20 mg Tablet PO ×2 (08:08→17:12)
[2020-06-28] MEDS: levothyroxine 112 mcg Tablet PO (08:08)
[2020-06-28] MEDS: gabapentin 300 mg Capsule PO ×3 (08:09→21:35)
[2020-06-28] MEDS: atorvastatin 40 mg Tablet 20 MG PO (08:09)
[2020-06-28] MEDS: potassium chloride ER 20 mEq Tablet PO ×2 (08:09→17:11)
[2020-06-28] MEDS: allopurinol 300 mg Tablet PO ×2 (08:09→17:11)
[2020-06-28] MEDS: ascorbic acid 500 mg Tablet PO (08:09)
[2020-06-28] MEDS: metoprolol tartrate 25 mg Tablet PO ×2 (08:09→17:11)
[2020-06-28] MEDS: pantoprazole DR 40 mg Tablet PO (08:09)
[2020-06-28] MEDS: ferrous sulfate EC 325 mg Tablet PO ×2 (08:09→17:12)
[2020-06-28] MEDS: isosorbide mononitrate ER 30 mg Tablet PO (08:10)
[2020-06-28] MEDS: apixaban 5 mg Tablet PO ×2 (08:10→17:12)
[2020-06-28] MEDS: oxybutynin 5 mg Tablet PO ×3 (08:10→21:36)
[2020-06-28] MEDS: FUROsemide 40 mg Tablet PO ×2 (08:10→17:11)
[2020-06-28 08:27] LABS: Slide Review Slide Review Perform
[2020-06-28] MEDS: albuterol 8 gm MDI 1 PUFF INHALATION (10:04)
[2020-06-28 10:50] LABS: Glucose Point of Care 324 mg/dL (70-110)
--- NOTE | 2020-06-28 12:12 | PM.PN ---
Subjective Subjective: Interval history: Ms. Ramsey is doing fine. saturating more than 90% on 3 L oxygen via nasal cannula. Has remained afebrile,denies any cough shortness of breath. Other vitals and labs have been reviewed. Medications: Reviewed: Yes Vitals/I&O/Wt Last Vital Signs Temp 97.8 F 06/28/20 11:48 Pulse 87 06/28/20 11:48 Resp 16 06/28/20 11:48 BP 134/73 06/28/20 11:48 Pulse Ox 97 06/28/20 11:48 06/27/20 06/28/20 06/28/20 22:59 06:59 14:59 Intake Total 480 / 480 500 / 980 240 / 240 Output Total 600 / 600 Balance 480 / 480 -100 / 380 240 / 240 Weight last 48 hrs Weight 81.193 kg Weight 71.214 kg Physical Exam Const: COMMON NORMALS: patient oriented x3 HENMT: COMMON NORMALS: normocephalic and atraumatic HEAD & SCALP: normocephalic and atraumatic Chest: COMMONS NORMALS: normal inspection of the chest and normal palpation of entire chest wall CHEST: Yes Symmetrical chest wall rise Resp: COMMON NORMALS: normal respiratory effort and clear to auscultation bilaterally AUSCULTATION: clear to auscultation bilaterally Cardio: COMMON NORMALS: regular rate, regular rhythm, S1 normal heart sound present, S2 normal heart sound present, No gallops present (Cardio), No murmurs present (Cardio), No rub (Cardio) and Peripheral pulses 2+ throughout RATE: regular rate RHYTHM: regular rhythm HEART SOUNDS: S1 normal heart sound present and S2 normal heart sound present PERIPHERAL PULSES: Peripheral pulses 2+ throughout GI: COMMON NORMALS: Normal to inspection, nondistended, normoactive bowel sounds present, Soft to palpation, non-tender and no masses AUSCULTATION: Yes normoactive bowel sounds PALPATION: Yes Soft to palpation RECTAL EXAM: deferred Extremity: COMMON NORMALS: no clubbing, cyanosis or edema and no pedal edema Neuro: COMMON NORMALS: patient oriented x3 Data : 06/28/20 04:33 06/28/20 04:33 A&P Assessment and plan (1) Chest pain: EKG on admission showing new j Point elevation in leads II and avf not present in prior studies. Repeat EKG in the morning: Sinus rhythm with first-degree AV block. Troponins are flat. Tele Has a echo done in 07/2019: With LVEF : 71 % No RWMA, MOD PAH (PASP :62 MM HG ) Continue Eliquis 5 mg p.o. twice daily Continue metoprolol tartrate 25 mg p.o. twice daily Continue sublingual nitro. Continue imdur 30 mg p.o. daily . Status: Acute Qualifiers: Chest pain type: unspecified Qualified Code(s): R07.9 - Chest pain, unspecified (2) COVID-19: Currently at baseline oxygen. We will continue Solu-Medrol 40MG IV daily Continue Eliquis Continue vitamin C Currently will hold remdesivir Status: Acute (3) Chronic respiratory failure with hypoxia and hypercapnia: Continue with nebs Continue supplemental oxygen as needed Status: Acute (4) GERD (gastroesophageal reflux disease): Status: Acute (5) Chronic kidney disease: Status: Acute Qualifiers: Chronic kidney disease stage: stage 2 (mild) Qualified Code(s): N18.2 - Chronic kidney disease, stage 2 (mild) (6) Diastolic heart failure: Currently compensated. We will continue with Lasix 40MG oral twice daily Status: Acute Qualifiers: Heart failure chronicity: unspecified Qualified Code(s): I50.30 - Unspecified diastolic (congestive) heart failure (7) Paroxysmal A-fib: Currently in sinus rhythm. Telemetry Status: Acute (8) Hypertension: Status: Acute Qualifiers: Hypertension type: essential hypertension Qualified Code(s): I10 - Essential (primary) hypertension (9) History of pulmonary embolism: On Eliquis 5mg q12 h daily Status: Acute Additional A&P Information DVT PPX: Not needed as the patient is on eliquis Code Status :Full Code Disposition:Home Attestations Medical Necessity Statement*: Patient needs to be in hospital for management of Covid infection. Coding Level of Care Code Acute Administrative Assistant Front Desk for g Fwd Diagnoses Chest pain R07.9 Chest pain type: unspecified COVID-19 U07.1 Chronic respiratory failure with hypoxia and hypercapnia J96.11; J96.12 GERD (gastroesophageal reflux disease) K21.9 Chronic kidney disease N18.2 Chronic kidney disease stage: stage 2 (mild) Diastolic heart failure I50.30 Heart failure chronicity: unspecified Paroxysmal A-fib I48.0 Hypertension I10 Hypertension type: essential hypertension History of pulmonary embolism Z86.719
[2020-06-28 17:04] LABS: Glucose Point of Care 339 mg/dL (70-110)
[2020-06-28] MEDS: pramipexole 0.25 mg Tablet 1 MG PO (21:35)
[2020-06-28] MEDS: CLONazepam 1 mg Tablet PO (21:35)
[2020-06-28] MEDS: lactulose oral liq 20 gm/30 mL UDC 15 GM PO (21:35)
[2020-06-28] MEDS: baclofen 10 mg Tablet PO (21:35)
[2020-06-28] MEDS: insulin glargine 100 units/1 mL 34 UNIT SUBCUT (21:36)
[2020-06-28] MEDS: trazodone 100 mg Tablet PO (21:36)
[2020-06-28] MEDS: carbidopa-levodopa 25-100mg Tablet 2 EACH PO (21:36)
[2020-06-29] VITALS (8 sets, daily range): BP systolic 102–125; BP diastolic 63–71; PULSE 81–92; RESP 15–20; TEMP 35.6–36.4; O2SAT 97–98
[2020-06-29 05:40] LABS: Basophils % 0.1 %; Hematocrit 34.7 % (37.0-47.0); Hemoglobin 10.9 g/dL (11.5-15.3); Lymphocytes # 0.9 10^3/uL (0.8-4.8); Lymphocytes % 11.4 %; Mean Corpuscular HGB Conc 31.4 g/dL (30.0-36.0); Mean Corpuscular Hemoglobin 30.6 pg (28.0-34.0); Mean Corpuscular Volume 97.5 fL (81-99); Monocytes # 0.5 10^3/uL (0.2-0.9); Monocytes % 5.8 %; Neutrophils % 81.9 %; Nucleated Red Blood Cells % 0 %; Platelet Count 132 10^3/cmm (130-400); Red Blood Count 3.56 10^6/uL (4.1-5.3); Red Cell Distribution Width 13.8 % (12.1-15.1); White Blood Count 7.8 10^3/uL (4.0-10.0)
[2020-06-29 06:22] LABS: Glucose Point of Care 266 mg/dL (70-110)
[2020-06-29 06:22] LABS: Glucose Point of Care 299 mg/dL (70-110)
[2020-06-29 06:48] LABS: Alanine Aminotransferase 8 U/L (0-33); Albumin Level 3.4 g/dL (3.5-5.2); Alkaline Phosphatase 83 IU/L (35-105); Anion Gap 15.6 (5-19); Aspartate Amino Transferase 16 U/L (0-32); Blood Urea Nitrogen 29 mg/dL (8-23); Calcium 9.5 mg/dL (8.5-10.5); Carbon Dioxide 26 mmol/L (22-29); Chloride 100 mmol/L (98-107); Globulin 2.9 g/dL (1.3-4.6); Glucose 262 mg/dL (65-115); Osmolality Calculated 299 mOsm/kg (285-295); Potassium 4.6 mmol/L (3.5-5.1); Sodium 137 mmol/L (136-145); Total Bilirubin 0.2 mg/dL (0.15-1.2); Total Protein 6.3 g/dL (6.6-8.7)
[2020-06-29] MEDS: allopurinol 300 mg Tablet PO (08:36)
[2020-06-29] MEDS: FUROsemide 40 mg Tablet PO (08:36)
[2020-06-29] MEDS: metoprolol tartrate 25 mg Tablet PO (08:36)
[2020-06-29] MEDS: isosorbide mononitrate ER 30 mg Tablet PO (08:36)
[2020-06-29] MEDS: oxybutynin 5 mg Tablet PO (08:36)
[2020-06-29] MEDS: atorvastatin 40 mg Tablet 20 MG PO (08:36)
[2020-06-29] MEDS: potassium chloride ER 20 mEq Tablet PO (08:36)
[2020-06-29] MEDS: levothyroxine 112 mcg Tablet PO (08:36)
[2020-06-29] MEDS: apixaban 5 mg Tablet PO (08:36)
[2020-06-29] MEDS: ferrous sulfate EC 325 mg Tablet PO (08:36)
[2020-06-29] MEDS: ascorbic acid 500 mg Tablet PO (08:36)
[2020-06-29] MEDS: calcium carb-vit d 600mg/400unit 1 Tablet 1 EACH PO (08:36)
[2020-06-29] MEDS: pantoprazole DR 40 mg Tablet PO (08:36)
[2020-06-29] MEDS: gabapentin 300 mg Capsule PO (08:36)
[2020-06-29] MEDS: albuterol 8 gm MDI 1 PUFF INHALATION (09:30)
[2020-06-29] MEDS: famotidine 20 mg Tablet PO (09:46)
[2020-06-29 11:27] LABS: Glucose Point of Care 207 mg/dL (70-110)
--- NOTE | 2020-06-29 13:00 | P.DS_ITS ---
Discharge Providers Date of Admission: 06/27/20 14:06 Date of Discharge: June 29, 2020 Attending Provider at Admission: Gonzales Aragon MD Attending Provider at Discharge: Gonzales Aragon MD Primary Care Provider: Terence Rogers Diagnoses at Discharge Discharge Diagnosis (1) Chest pain: Status: Resolved Qualifiers: Chest pain type: unspecified Qualified Code(s): R07.9 - Chest pain, unspecified (2) COVID-19: Status: Acute (3) Chronic respiratory failure with hypoxia and hypercapnia: Status: Chronic (4) GERD (gastroesophageal reflux disease): Status: Chronic (5) Chronic kidney disease: Status: Chronic Qualifiers: Chronic kidney disease stage: stage 2 (mild) Qualified Code(s): N18.2 - Chronic kidney disease, stage 2 (mild) (6) Diastolic heart failure: Status: Chronic Qualifiers: Heart failure chronicity: unspecified Qualified Code(s): I50.30 - Unspecified diastolic (congestive) heart failure (7) Paroxysmal A-fib: Status: Chronic (8) Hypertension: Status: Chronic Qualifiers: Hypertension type: essential hypertension Qualified Code(s): I10 - Essential (primary) hypertension (9) History of pulmonary embolism: Status: Acute Permanent problem details: -is on AC with Eliquis Reason for Visit Reason for Visit: CP/ DIFFICULTY BREATHING/ COVID + Hospital Course Hospital Course 78 year old female with past medical history of diastolic heart failure, CKD, COPD on 3 L oxygen, paroxysmal A. fib, pulmonary embolism on chronic anticoagulation with Eliquis, type 2 diabetes mellitus, hypertension, hypothyroidism,came in with c/o chest pressure, lightheadedness, and shortness of breath which occurred at 4 AM when she woke up this morning. She states it felt like an elephant sitting on her chest, rated an 8 of 10 and radiating to both jaws,not relieved with sublingual nitro.she was tested COVID Positive on 06/26 and was also complaining of loss of taste,generalized body pain,fatigue.During her hospital stay she was kept on COVID Floor and was worked up for chest pain, serial ekg failed to show any acute myocardial injury, serial troponins were flat,2D echo was not done as she has a recent 2D echo : 07/2019: With LVEF : 71 % No RWMA, MOD PAH (PASP :62 MM HG ).She also has CAG study from 2016 which showed no significant coronary artery disease at that time.She also has Unremarkable myocardial perfusion imaging.with Normal LV ejection fraction 76%. LV wall motion analysis revealing no gross wall motion abnormalities done in 04/28.Her chest pain is likely atypical jay pain. With regards to her COVID Infection she was at her baseline oxygen requirement 2-3 Ls, Xray chest showed improving PNA as compared to recent prior study.She was kept on solumedrol 40 mg I.V daily as well she was on ascorbic acid as well as eliquis 5 mg q12 h daily.She was not a candidate for REMDESIVIR. 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 Physical Exam Const: COMMON NORMALS: patient oriented x3 HENMT: COMMON NORMALS: normocephalic and atraumatic HEAD & SCALP: normocephalic and atraumatic Chest: COMMONS NORMALS: normal inspection of the chest CHEST: Yes Symmetrical chest wall rise Resp: COMMON NORMALS: normal respiratory effort and clear to auscultation bilaterally EFFORT & INSPECTION: Yes symmetric chest movement AUSCULTATION: clear to auscultation bilaterally Cardio: COMMON NORMALS: regular rate, regular rhythm, S1 normal heart sound present, S2 normal heart sound present, No gallops present (Cardio), No murmurs present (Cardio), No rub (Cardio) and Peripheral pulses 2+ throughout RATE: regular rate RHYTHM: regular rhythm HEART SOUNDS: S1 normal heart sound present and S2 normal heart sound present PERIPHERAL PULSES: Peripheral pulses 2+ throughout GI: COMMON NORMALS: Normal to inspection, nondistended, normoactive bowel sounds present, Soft to palpation, non-tender, No hepatosplenomegaly present and no masses AUSCULTATION: Yes normoactive bowel sounds PALPATION: Yes Soft to palpation and Yes No hepatosplenomegaly present RECTAL EXAM: deferred Extremity: COMMON NORMALS: no clubbing, cyanosis or edema and no pedal edema Neuro: COMMON NORMALS: patient oriented x3 Discharge Data Data Completed and Pending: Completed Studies During Hospitalization Category Date Time Status XR chest 1V denia ble [id number] Stat Exams 06/27/20 09:52 Completed Pending at discharge Category Date Time Status Complete Blood Co unt w/Auto AM LABS Lab 06/30/20 04:00 Ordered Comprehensive Met abolic Panel AM LA BS Lab 06/30/20 04:00 Ordered Labs from last 24 hours 06/29/20 06/29/20 06/29/20 11:22 06:17 06:03 WBC RBC Hgb Hct MCV MCH MCHC RDW Plt Count MPV Neut % (Auto) Lymph % (Auto) [place] % (Auto) Eos % (Auto) Baso % (Auto) Neut # (Auto) Lymph # (Auto) [place] # (Auto) Eos # (Auto) Baso # (Auto) Nucleated RBC % (a uto) Nucleated RBCs # Sodium 137 Potassium 4.6 Chloride 100 Carbon Dioxide 26 Anion Gap 15.6 BUN 29 H Creatinine 0.8 GFR Calculation Not Reportable Glucose 262 H POC Glucose 207 H 266 H Calculated Osmolal ity 299 H Calcium 9.5 Total Bilirubin 0.2 AST 16 ALT 8 Alkaline Phosphata se 83 Total Protein 6.3 L Albumin 3.4 L Globulin 2.9 06/29/20 06/29/20 06/28/20 05:00 05:00 21:47 WBC 7.8 RBC 3.56 L Hgb 10.9 L Hct 34.7 L MCV 97.5 MCH 30.6 MCHC 31.4 RDW 13.8 Plt Count 132 MPV 14.0 H Neut % (Auto) 81.9 Lymph % (Auto) 11.4 [place] % (Auto) 5.8 Eos % (Auto) 0.0 Baso % (Auto) 0.1 Neut # (Auto) 6.40 Lymph # (Auto) 0.9 [place] # (Auto) 0.5 Eos # (Auto) 0.0 Baso # (Auto) 0.0 Nucleated RBC % (a uto) 0 Nucleated RBCs # 0.0 Sodium Cancelled Potassium Cancelled Chloride Cancelled Carbon Dioxide Cancelled Anion Gap Cancelled BUN Cancelled Creatinine Cancelled GFR Calculation Cancelled Glucose Cancelled POC Glucose 299 H Calculated Osmolal ity Cancelled Calcium Cancelled Total Bilirubin Cancelled AST Cancelled ALT Cancelled Alkaline Phosphata se Cancelled Total Protein Cancelled Albumin Cancelled Globulin Cancelled 06/28/20 17:00 WBC RBC Hgb Hct MCV MCH MCHC RDW Plt Count MPV Neut % (Auto) Lymph % (Auto) [place] % (Auto) Eos % (Auto) Baso % (Auto) Neut # (Auto) Lymph # (Auto) [place] # (Auto) Eos # (Auto) Baso # (Auto) Nucleated RBC % (a uto) Nucleated RBCs # Sodium Potassium Chloride Carbon Dioxide Anion Gap BUN Creatinine GFR Calculation Glucose POC Glucose 339 H Calculated Osmolal ity Calcium Total Bilirubin AST ALT Alkaline Phosphata se Total Protein Albumin Globulin Vitals: Last Vital Signs Temp 96.0 F L 06/29/20 11:23 Pulse 88 06/29/20 11:23 Resp 16 06/29/20 11:23 BP 125/71 06/29/20 11:23 Pulse Ox 98 06/29/20 11:23 Discharge Plan Discharge Patient Disposition: Home Condition: Stable Prescriptions: Continued ferrous sulfate 325 mg (65 mg iron) tablet,delayed release (DR/EC) 325 mg PO BID RF: 0 furosemide 40 mg tablet 40 mg PO BID RF: 0 revefenacin 175 mcg/3 mL solution for nebulization 175 mcg inhalation DAILY 30 Days Qty: 90 RF: 3 Eliquis 5 mg tablet 5 mg PO BID 30 Days Qty: 60 RF: 5 Hold Instructions: Resume on 05/10/20. nitroglycerin 0.4 mg tablet, sublingual 0.4 mg SUBLINGUAL Q5M PRN (Reason: chest pain) 30 Days Qty: 30 RF: 3 isosorbide mononitrate 30 mg tablet extended release 24 hr 30 mg PO DAILY 30 Days Qty: 30 RF: 5 metoprolol tartrate 25 mg tablet 25 mg PO BID Qty: 180 RF: 3 magnesium hydroxide [Milk of Magnesia] 400 mg/5 mL Suspension See Rx Instructions .ROUTE .COMPLEX RF: 0 fluticasone propionate [Flonase Allergy Relief] 50 mcg/actuation [place],Susp ension 2 spray INTRANASAL QAM RF: 0 Daliresp 250 mcg tablet 250 mcg PO DAILY RF: 0 omeprazole 40 mg capsule,delayed release(DR/EC) 40 mg PO DAILY RF: 0 Lantus Solostar U-100 Insulin 100 unit/mL (3 mL) insulin pen 34 unit SUBCUT BEDTIME RF: 0 sucralfate 100 mg/mL suspension See Rx Instructions .ROUTE .COMPLEX RF: 0 calcium carbonate-vitamin D3 [Calcium 600 + D(3)] 600 mg(1,500mg) -200 unit Tablet 1 tab PO DAILY RF: 0 ascorbic acid (vitamin C) [Vitamin C] 500 mg Tablet 500 mg PO DAILY RF: 0 baclofen 10 mg Tablet 10 mg PO TID PRN (Reason: Muscle Spasm) RF: 0 magnesium 250 mg Tablet 250 mg PO DAILY RF: 0 albuterol sulfate [ProAir HFA] 90 mcg/actuation Hfa Aerosol Inhaler 1 - 2 puff INHALATION Q4H PRN (Reason: Shortness Of Breath) RF: 0 coQ10 (ubiquinol) 100 mg Capsule 100 mg PO BEDTIME RF: 0 Trulicity 0.75 mg/0.5 mL pen injector See Rx Instructions .ROUTE .COMPLEX RF: 0 sennosides-docusate sodium 8.6-50 mg Tablet 1 tab-cap PO BID PRN (Reason: Constipation) RF: 0 oxycodone-acetaminophen 10-325 mg tablet 1 tab PO Q8H PRN (Reason: Pain, Mild) RF: 0 carbidopa-levodopa 25-100 mg tablet 2 tab PO BEDTIME RF: 0 Saccharomyces boulardii [Florastor] 250 mg Capsule 500 mg PO BID RF: 0 lactulose 10 gram/15 mL solution 15 ml PO BID PRN (Reason: Constipation) RF: 0 pravastatin 40 mg tablet 40 mg PO DAILY RF: 0 clonazepam 1 mg tablet 1 mg PO BEDTIME RF: 0 pramipexole 0.5 mg tablet 1 mg PO BEDTIME RF: 0 trazodone 100 mg tablet 100 mg PO BEDTIME RF: 0 oxybutynin chloride 5 mg tablet 5 mg PO TID RF: 0 cyanocobalamin (vitamin B-12) 1,000 mcg/mL solution 1,000 mcg IM Q30D RF: 0 gabapentin 300 mg capsule 300 mg PO TID RF: 0 allopurinol 300 mg tablet 300 mg PO BID RF: 0 Zyrtec 10 mg Capsule 10 mg PO BEDTIME RF: 0 Lumigan 0.01 % drops 1 drp ophthalmic (eye) BEDTIME RF: 0 levothyroxine 112 mcg capsule 112 mcg PO DAILY Qty: 30 RF: 0 docusate sodium 100 mg Capsule 100 mg PO DAILY RF: 0 Klor-Con 10 10 mEq tablet extended release 20 meq PO BID RF: 0 Pulmicort 0.25 mg/2 mL suspension for nebulization 0.25 mg inhalation BID PRN (Reason: Shortness Of Breath) RF: 0 Perforomist 20 mcg/2 mL solution for nebulization 2 ml inhalation BID PRN (Reason: Shortness Of Breath) RF: 0 Discharge Orders: Discharge Order (Routine); Ordered 06/29/20 Ordered By: Gonzales Aragon Referrals: [facility] [Outside] Terence Rogers [Primary Care Provider] - (Please call Dr. Rogers's office on Tuesday and schedule an appointment to be seen as a hospital follow up. ) Discharge Diet: Cardiac Discharge Activity: Resume usual activity Patient Instructions: Atrial Fibrillation (DC), Chest Pain (DC), Heart Healthy Diet (DC) Discharge Attestations Time Spent in Discharge Care*: less than 30 min Specific Discharge Activities: educating patient, educating and/or supporting family/caregiver, discussing with upper caser/social workers/dc planners, documenting/other paperwork and evaluating patient/reviewing data Status at Discharge: Cognitive status at discharge: cognitively intact , Behavioral status at discharge: cooperative , Functional status at discharge: independent ambulation Overall status at discharge: patient is back to baseline Quality Metrics Clinical Quality Measures During this hospital stay, did patient experience: None Coding Level of Care Code Acute 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
--- NOTE | 2020-06-29 16:03 | PC.NURSE ---
Attempted to call back . He was not on contact list and no call back number left.
--- NOTE | 2020-06-29 16:42 | PC.NURSE ---
pt iv taken out and intact. Discharge instructions explained and questions answered. pt taken to parking lot 7 via wheelchair.
--- NOTE | 2020-07-01 13:21 | PC.RESP ---
PULMONARY REHAB INFORMATION SENT TO PATIENT.
== END 2020-06-29 16:45 | disposition home or self-care (01) ==
LOC: ER 14:02 → MEDSURG 14:51
PROVIDERS: Admitting Provider Internal Medicine; Emergency Provider Student in an Organized Health Care Education/Training Program; PCP Family Medicine; Visit Provider Internal Medicine
DX: U07.1 COVID-19 (principal); R07.9 Chest pain, unspecified; Z79.01 Long term (current) use of anticoagulants; J96.11 Chronic respiratory failure with hypoxia; K21.9 Gastro-esophageal reflux disease without esophagitis; I13.0 Hypertensive heart and chronic kidney disease with heart failure and stage 1 through stage 4 chronic kidney disease, or unspecified chronic kidney disease; N18.2 Chronic kidney disease, stage 2 (mild); I50.30 Unspecified diastolic (congestive) heart failure; I48.0 Paroxysmal atrial fibrillation; Z86.711 Personal history of pulmonary embolism; Z87.891 Personal history of nicotine dependence; E03.9 Hypothyroidism, unspecified
CPT/HCPCS: 12345; 36415; 36416; 71045; 80053; 82962; 83735; 84145; 84443; 84484; 85025; 85610; 93005; 94640; 96372; 96374; 96375; 99283; 99285; G0378; J1815 ×2; J2920; J3420; J3535

== ENCOUNTER 2020-07-07 00:47 | Observation (INO) | payer MEDICARE, MEDICAID, SELFPAY ==
[2020-07-07] VITALS (57 sets, daily range): BP systolic 126–165; BP diastolic 65–96; PULSE 70–88; RESP 13–38; TEMP 34.8–36.6; O2SAT 94–99; BMI 31.6
--- NOTE | 2020-07-07 00:53 | P.HP_ITS ---
Providers/Chief Complaint Primary Care Provider: Terence Rogers Chief Complaint: SVT History of Present Illness Cathryn Ramsey is a 79 year old female who has history of heart failure preserved ejection fraction chronic kidney disease stage II, 3 L oxygen dependent COPD chronic hypoxia hypercapnic respiratory failure, paroxysmal A. fib right bundle branch block chronic anticoagulation with Eliquis hypothyroidism and type 2 diabetes presented to [place] emergency department for chief complaint of palpitations and chest discomfort. Her previous coronary angiogram done on 16 was unremarkable previous stress test was negative ejection fraction 76% she was recently diagnosed with COVID-19 06/26 she did well with steroids only she did not require any remdesivir her oxygen requirement did not increase from baseline which is 3 L.. Patient is stating that today she was setting up her dinner table when she started experiencing pounding chest pain. She is describing the chest pain as heaviness and dullness all over her chest extending from right to left, it was radiating towards her left side of the jaw and it made her very anxious hence she went to the [place] ER for further evaluation, she was found to have w berry-complex tachycardia heart rate 140s, blood pressure was stable, she was given Cardizem 20 mg which converted her rhythm to sinus, first troponin 52 and second troponin 108, patient remained hemodynamically stable he does carry history of A. fib with right bundle branch block, her chest pain resolved after getting Cardizem and improvement in heart rate. She was sent to our facility because of delta troponin. At the time of evaluation in the ER patient was stable sats she is still feeling chest discomfort started in the ambulance, 7/10, dull, reproducible, gets worse on any kind of movement, no active shortness of breath nausea vomiting or diaphoresis. She saturating well on 3 to nasal cannula. Covid test has been ordered. Blood pressure 126/91mmhg, pulse 79 respiratory rate 20 saturating well on 3 L nasal cannula Review of Systems Const: Denies: fever(s), chills, body aches, change in weight or fatigue Eyes: Denies: change in vision ENMT: Denies: throat pain Card: Reports: chest pain, palpitations and dyspnea on exertion; Denies: swelling of feet/ankles, syncope, pre-syncope or orthopnea Resp: Reports: pain on inspiration GI: Denies: abdominal pain : Denies: flank pain Musc: Denies: neck pain Skin/Breast: Reports: lesions Neuro: Denies: headache(s) Psych: Denies: anxiety Endo: Denies: polyuria Buzz/Lymph: Denies: easy bruising All/Imm: Denies: urticaria Medications/Allergies Home Medications Medication Instructions Recorded Confirmed Last Taken Type Lumigan 1 drp OPHTHALMIC (EYE) BEDTIME 07/31/19 07/07/20 07/06/20 09:00 History Saccharomyces boulardii [Florastor] 500 mg PO BID 07/31/19 07/07/20 07/06/20 20:00 History Zyrtec 10 mg PO BEDTIME 07/31/19 07/07/20 07/06/20 20:00 History allopurinol 300 mg PO BID 07/31/19 07/07/20 07/06/20 20:00 History carbidopa-levodopa 2 tab PO BEDTIME 07/31/19 07/07/20 07/06/20 20:00 History clonazepam 1 mg PO BEDTIME 07/31/19 07/07/20 07/06/20 20:00 History cyanocobalamin (vitamin B-12) 1,000 mcg IM Q30D 07/31/19 07/07/20 06/24/20 History gabapentin 300 mg PO TID 07/31/19 07/07/20 07/06/20 20:00 History lactulose 15 ml PO BID PRN 07/31/19 07/07/20 07/05/20 09:00 History oxybutynin chloride 5 mg PO TID 07/31/19 07/07/20 07/06/20 20:00 History oxycodone-acetaminophen 1 tab PO Q8H PRN 07/31/19 07/07/20 06/30/20 09:00 History pramipexole 1 mg PO BEDTIME 07/31/19 07/07/20 07/06/20 20:00 History pravastatin 40 mg PO DAILY 07/31/19 07/07/20 07/06/20 08:00 History sennosides-docusate sodium 1 tab-cap PO BID PRN 07/31/19 07/07/20 07/06/20 20:00 History trazodone 100 mg PO BEDTIME 07/31/19 07/07/20 07/06/20 20:00 History levothyroxine 112 mcg PO DAILY #30 cap 08/06/19 07/07/20 07/06/20 08:00 Rx apixaban 5 mg tablet 5 mg PO BID 30 Days #60 tab 12/10/19 07/07/20 07/06/20 20:00 Rx nitroglycerin 0.4 mg sublingual 0.4 mg SUBLINGUAL Q5M PRN 30 Days 12/10/19 07/07/20 07/06/20 20:00 Rx tablet #30 tab Daliresp 250 mcg PO DAILY 12/15/19 07/07/20 07/06/20 09:00 History Lantus Solostar U-100 Insulin 34 unit SUBCUT BEDTIME 12/15/19 07/07/20 07/06/20 18:00 History fluticasone propionate [Flonase 2 spray INTRANASAL QAM 12/15/19 07/07/20 07/06/20 20:00 History Allergy Relief] magnesium hydroxide [Milk of See Rx Instructions .ROUTE .COMPLEX 12/15/19 07/07/20 07/05/20 09:00 History Magnesia] omeprazole 40 mg PO DAILY 12/15/19 07/07/20 07/06/20 09:00 History sucralfate See Rx Instructions .ROUTE .COMPLEX 12/15/19 07/07/20 06/30/20 08:00 History ferrous sulfate 325 mg (65 mg 325 mg PO BID tab 01/24/20 07/07/20 07/06/20 09:00 History iron) tablet,delayed release furosemide 40 mg tablet 40 mg PO BID tab 01/24/20 07/07/20 07/06/20 17:00 Hi story isosorbide mononitrate 30 mg 30 mg PO DAILY 30 Days #30 tab 02/28/20 07/07/20 07/06/20 08:00 Rx tablet,extended release 24 hr metoprolol tartrate 25 mg tablet 25 mg PO BID #180 tab 02/28/20 07/07/20 07/06/20 20:00 Rx revefenacin 175 mcg/3 mL solution 175 mcg INHALATION DAILY 30 Days 06/11/20 07/07/20 06/30/20 09:00 Rx for nebulization #90 ml Trulicity See Rx Instructions .ROUTE .COMPLEX 1207/07/20 07/01/20 09:00 History albuterol sulfate [ProAir HFA] 1 - 2 puff INHALATION Q4H PRN 06/22/20 07/07/20 Unknown History ascorbic acid (vitamin C) [Vitamin 500 mg PO DAILY 06/22/20 07/07/20 07/06/20 07:00 History C] baclofen 10 mg PO TID PRN 06/22/20 07/07/20 07/06/20 20:00 History calcium carbonate-vitamin D3 1 tab PO DAILY 06/22/20 07/07/20 07/06/20 07:00 History [Calcium 600 + D(3)] coQ10 (ubiquinol) 100 mg PO BEDTIME 06/22/20 07/07/20 07/06/20 20:00 History magnesium 250 mg PO DAILY 06/22/20 07/07/20 07/06/20 09:00 History Perforomist 2 ml INHALATION BID PRN 06/27/20 07/07/20 06/30/20 09:00 History budesonide [Pulmicort] 0.25 mg INHALATION BID PRN 06/27/20 07/07/20 06/30/20 08:00 History docusate sodium 100 mg PO DAILY 06/27/20 07/07/20 07/06/20 09:00 History potassium chloride [Klor-Con 10] 20 meq PO BID 06/27/20 07/07/20 07/06/20 20:00 History Allergies Allergy/AdvReac Type Severity Reaction Status Date / Time codeine Allergy patient Verified 06/19/20 08:11 doesn't recall Iodinated Contrast Media Allergy renal Verified 06/22/20 10:16 disease naproxen Allergy renal Verified 06/22/20 10:16 disease Penicillins Allergy hives Verified 06/22/20 10:16 shellfish derived Allergy unknown Verified 06/22/20 10:16 Sulfa (Sulfonamide Allergy itching Verified 06/22/20 10:16 Antibiotics) tramadol AdvReac makes me Verified 06/22/20 10:16 crazy garlic Allergy unknown Uncoded 06/22/20 10:16 PFSH Acute PFSH: Medical History Anemia -on iron supplementation Atypical chest pain Cardiac [place] [address] [place]. She had no significant coronary artery disease at that time. Bradycardia Chest pain Chronic anticoagulation Chronic back pain Chronic kidney disease -baseline Cr appears to be around 2-2.3 - Chronic kidney disease Chronic respiratory failure with hypoxia and hypercapnia COPD (chronic obstructive pulmonary disease) Uses 3 L [id number] and BiPAP at night COVID-19 Diastolic heart failure Diastolic heart failure Elevated troponin Former smoker GERD (gastroesophageal reflux disease) Gout History of pulmonary embolism -is on AC with Eliquis Hypertension Hypothyroidism Intermittent atrial fibrillation Normal coronary angiogram Cardiac angiogram done in September 2015 Osteoarthritis Paroxysmal A-fib Symptomatic bradycardia Syncope Type 2 diabetes mellitus UTI (urinary tract infection) - Surgical History H/O colonoscopy 2019 H/O esophagogastroduodenoscopy (~04/2020) 2019 H/O hernia repair H/O left knee surgery H/O right mastectomy History of cholecystectomy History of tonsillectomy Tubal ligation status Family History Father CAD (coronary artery disease) Family history of premature coronary artery disease Hypertension Mother Cancer Chronic kidney disease (CKD) Hypertension Sister Hyperlipidemia Hypertension Daughter No problems noted. Other Diabetes Denies family history of Clotting disorder Dementia Psychiatric illness Suicide Anesthesia complication Bleeding disorder Lung disease Stroke Social History Smoking and tobacco status: former smoker Quit status (tobacco): has quit using tobacco Year quit tobacco: 1970 - 1PPD x 25 Years Second hand smoke exposure: No Smoking risk assessment/counseling performed?: No Alcohol intake: never Lives independently: Yes Household members: family Housing: House Marital status: Single Current occupational status: retired History of recent travel: No Current gender identity: Female Physical Exam Narrative: EXAM NARRATIVE: Pleasant elderly female currently sitting comfortably in her bed Saturating well on her 3 L nasal cannula No active shortness of breath Complaining of chest heaviness 7/10, S1, S2 sinus rhythm no active sign of heart failure no significant murmur appreciated Bilateral breath sound without adventitious rhonchi or crackles Abdomen soft nontender bowel sound present Neurologically nonfocal exam EOMI, PERRLA GCS 15 awake alert oriented x3 Skin shows no active gangrene or ulcer Lower extremity no edema gangrene or ulcerative findings Appropriate mood and affect Her chest pain is reproducible in right and left chest area A&P Assessment and plan (1) Unstable angina: Status: Acute Additional A&P Information Unstable angina Patient is endorsing pressure-like chest discomfort however also has reproducible and pleuritic component, lasting more than 30 minutes, substernal, got relieved after control of heart rate at the outside facility, at the time of my evaluation complaint of dull pain 7/10 Hemodynamically stable I will give her a dose of morphine 2015 coronary angiogram was unremarkable She had significant delta troponin, first troponin 52-second 108,Will obtain another set of EKGs and troponin, her current EKG is not showing any ischemic or infarctive changes her rhythm converted to sinus with right bundle branch block pattern, I would not pursue D-dimer as she is already on Eliquis Would request echo and Lexiscan stress test Wide-complex tachyarrhythmia History of A. fib right bundle branch block Received 20 mg of Cardizem at the outside facility Currently rhythm seems to be sinus, will obtain EKG Check magnesium level and potassium level Of note, she also history of symptomatic bradycardia(and a fall in January of this year), she follows up with Dr. Gregorio who mentioned that her bradycardia improved after taking off AV hceyenne blocking agents Continue Eliquis Type II NH Most likely related to tachyarrhythmia My threshold to start ACS protocol will be low, will follow the next troponin and EKG COPD oxygen dependent no acute exacerbation Currently doing well on 3 to nasal cannula Was tested with COVID-19 on 06/26 Did not require anything other than Decadron Type 2 diabetes continue moderate sliding scale along with Lantus Hypothyroidism continue levothyroxine 112 mcg Full code DVT prophylaxis not needed currently on Eliquis Cardiac consistent carb Attestations Medical Necessity Statement*: Anticipating discharge in less than 48 hours continued overnight monitoring to rule out NSTEMI for her unstable angina Time Spent in Patient Care: (>than 50% of time spent in counselling and/or direct pt care on unit) . 50mins Coding Level of Care Code Acute Ostomy Rn for Marlenyg Ellis Diagnoses Unstable angina I20.0
[2020-07-07 01:39] LABS: SARS Covid-2 Antigen Negative (Negative)
--- NOTE | 2020-07-07 01:51 | ECG_ITS ---
Test Date: 2020-07-07 Pat Name: Cathryn Ramsey Department: Room: Gender: Female Order Processing Clerk: : 1940 Requested By: Marbella Matthew Order Number: [id number] Rodolfo MD: Uziel Ramos M.D. Measurements Intervals [place] Rate: 80 P: 67 NC: 280 QRS: 55 QRSD: 139 T: 12 QT: 404 QTc: 467 Interpretive Statements SINUS RHYTHM WITH FIRST DEGREE AV BLOCK RIGHT BUNDLE BRANCH BLOCK [120+ ms QRS DURATION, UPRIGHT V1, 40+ ms S IN I/aVL/V4/V5/V6] Compared to ECG 06/28/2020 09:55:54 Right bundle-branch block now present Intraventricular conduction delay no longer present Myocardial infarct finding no longer present Electronically Signed On 07-07-2020 13:06:01 TRANSFER TABLE OPERATOR by Uziel Ramos M.D. [id number]
--- NOTE | 2020-07-07 03:25 | ECG_ITS ---
[facility] Test Date: 2020-07-07 Pat Name: Cathryn Ramsey Department: Room: 104 Gender: Female Equipment Scheduler: : 1940 Requested By: Marbella Matthew Order Number: [id number] Rodolfo MD: Uziel Ramos M.D. Measurements Intervals [place] Rate: 80 P: 60 MA: 295 QRS: 57 QRSD: 135 T: 38 QT: 403 QTc: 466 Interpretive Statements SINUS RHYTHM WITH FIRST DEGREE AV BLOCK INTRAVENTRICULAR CONDUCTION DELAY [130+ ms QRS DURATION] POSSIBLE INFERIOR MYOCARDIAL INFARCTION [30 ms Q WAVE IN II/aVF], PROBABLY OLD Compared to ECG 07/07/2020 00:53:53 Intraventricular conduction delay now present Myocardial infarct finding now present Right bundle-branch block no longer present Electronically Signed On 07-07-2020 17:01:21 RESIDENTIAL SOLAR CONSULTANT by Uziel Ramos M.D. [id number]
--- NOTE | 2020-07-07 04:47 | USCV_ITS ---
Cathryn Ramsey Age: 79 Gender: F : 1940 Exam Date: 07/07/2020 06:15 Ordering Phys: Marbella Matthew MD Technologist: Hui Khan [place] [facility] [place]ication: TACHYARRYTHMIA BP: 148 / 96 HR: 76 Rhythm: Sinus Technical Quality: Adequate MEASUREMENTS (Male / Female) Normal Values 2D ECHO LV Diastolic Diameter PLAX 3.9 cm 4.2 - 5.9 / 3.9 - 5.3 cm LV Systolic Diameter PLAX 1.9 cm LV Chamber Size 4.3 cm IVS Diastolic Thickness 1.7 cm 0.6 - 1.0 / 0.6 - 0.9 cm IVS Systolic Thickness 1.8 cm LVPW Diastolic Thickness 1.2 cm 0.6 - 1.0 / 0.6 - 0.9 cm LVPW Systolic Thickness 1.7 cm RV Chamber Size 3.9 cm LVOT Diameter 2.0 cm LV Ejection Fraction 2D Teich 81.6 % LV Ejection Fraction MOD 2C 66.2 % LV Ejection Fraction 2C AL 68.3 % LA Diameter 4.0 cm LA Width 4.7 cm LA Height 5.3 cm RA Width 3.7 cm RA Height 5.0 cm Aorta at Sinotubular Diameter 2.3 cm M-MODE LV Diastolic Diameter MM 5.0 cm 4.2 - 5.9 / 3.9 - 5.3 cm LV Systolic Diameter MM 3.6 cm LV Ejection Fraction MM Teich 56.0 % IVS Diastolic Thickness MM 1.3 cm 0.6 - 1.0 / 0.6 - 0.9 cm IVS Systolic Thickness MM 1.8 cm LVPW Diastolic Thickness MM 1.2 cm 0.6 - 1.0 / 0.6 - 0.9 cm LVPW Systolic Thickness MM 1.3 cm Aortic Annulus Diameter 3.0 cm LA Ao Ratio MM 1.3 MV E Point Septal Separation 0.6 cm DOPPLER AV Peak Velocity 105.0 cm/s LVOT Peak Velocity 107.0 cm/s AV Area Cont Eq vti 2.8 cm squared AV Area Cont Eq pk 3.2 cm squared MV Peak Velocity 218.0 cm/s MV Area PHT 4.5 cm squared Mitral E to A Ratio 0.9 MV E' Velocity 196.0 cm/s TR Peak Velocity 279.6 cm/s TR Peak Gradient 31.3 mmHg TR Mean Velocity 192.4 cm/s TR Mean Gradient 16.3 mmHg TR Velocity Time Integral 95.4 cm TV Peak E Velocity 69.0 cm/s Right Atrial Pressure 3.0 mmHg Pulmonary Artery Systolic Pressu 34.3 mmHg PV Peak Velocity 94.0 cm/s RV Acceleration Time 0.2 s RV Ejection Time 0.3 s RV AcT/ET 0.4 FINDINGS Left Ventricle Normal left ventricular size and systolic function, EF 66 %. Mild to moderate concentric left ventricular hypertrophy.no regional wall motion abnormalities. Grade I/IV diastolic dysfunction (abnormal relaxation filling pattern), normal to mildly elevated filling pressures. Right Ventricle Normal right ventricular size and systolic function. Right Atrium The right atrium is normal in size. Left Atrium Moderately increased left atrial size. Mitral Valve Thickened mitral valve. Moderate to heavy mitral annular calcification.moderate mitral valve regurgitation. Appears to have at least mild mitral valve stenosis. The peak velocity 1.96 m/s. Aortic Valve Minimally thickened Tricuspid Valve Aoiz-td-orzshcgx tricuspid valve regurgitation. Mild pulmonary hypertension with estimated pulmonary artery peak systolic pressure of 41 mmHg Pulmonic Valve Trace pulmonary valve regurgitation. Pericardium No pericardial effusion. Aorta Plaque seen in the ascending aorta. CONCLUSIONS Normal left ventricular size and systolic function, EF 66 %. Mild to moderate concentric left ventricular hypertrophy.no regional wall motion abnormalities.type I diastolic dysfunction. Ixgc-xy-ysxndxaw tricuspid valve regurgitation. Mild pulmonary hypertension with estimated pulmonary artery peak systolic pressure of 41 mmHg Trace pulmonary valve regurgitation. Moderate to heavy mitral annular calcification.moderate mitral valve regurgitation. Appears to have at least mild mitral valve stenosis. The peak velocity 1.96 m/s. Moderately increased left atrial size. There is no pericardial effusion. There are no intracardiac masses. In view of the difference in the technical quality, comparison with the previous study is difficult. No significant difference was noted from the study on 07/31/2019. The mitral valve Doppler studies and mitral valve area calculations need to be repeated Dr Vanessa Gregorio MD [facility] (Electronically Signed) Final Date: 08 July 2020 09:14 S
--- NOTE | 2020-07-07 05:21 | NMCV_ITS ---
NM roxi perf SPECT r/s* [id number] Cathryn Ramsey Age: 79 Gender: F : 1940 Exam Date: 07/07/2020 07:25 Ordering Phys: Marbella Matthew MD Technologist: LEN Esparza Exam Location: [facility] Indications: SVT STRESS TEST Please see separate stress test report in [facility] for full findings IMAGE PROTOCOL Rest/Stress 1 Lexiscan Day Radiopharmaceutical Dose (mCi) Administration Site Administered by Rest: Tc-99m 10.9 IV LEN Alejandro Sestamibi Stress:Tc-99m 33.0 IV LEN Esparza [place] Rest: 07-Jul-2020 60 Discovery 630 Stress: 07-Jul-2020 30 Discovery 630 0.4mg Lexiscan. Supine position only as patient was unable to lay prone. SPECT RESULTS Technical Quality: Good Raw Data Analysis: Normal Image Corrections: No attenuation or motion correction applied Summed Stress Score: 0 Summed Rest Score: 0 Summed Difference Score: 0 PERFUSION FINDINGS SPECT images demonstrate homogeneous tracer distribution throughout the myocardium. FUNCTIONAL RESULTS (calculated via Gated SPECT) Stress Image LV EF (%): 70 Stress EDV (mL):77 TID: 1.02 Stress ESV (mL):23 FUNCTIONAL FINDINGS: The left ventricle is normal in size. Transient Ischemia Dilatation of 1. There is normal left ventricular systolic function. The left ventricular ejection fraction is normal with a value of 70%. There is no regional wall motion abnormality. There is normal left ventricular wall thickening. Normal end-diastolic and end-systolic volumes. IMPRESSIONS 1. Myocardial perfusion imaging is normal. 2. Overall left ventricular systolic function is normal without regional wall motion abnormalities. 3. The left ventricular ejection fraction is normal with a value of 70%. 4. This study suggests a low likelihood of angiographically significant coronary artery disease. 5. There has been no change when compared to previous study from April 2019. Radha Brown MD (Electronically Signed) Final Date: 07 July 2020 14:45 S
[2020-07-07 05:47] LABS: Glucose Point of Care 209 mg/dL (70-110)
[2020-07-07 05:47] LABS: Glucose Point of Care 184 mg/dL (70-110)
--- NOTE | 2020-07-07 06:08 | PC.NURSE ---
NURSING NOTE: PT ARRIVED TO UNIT AT 0305 THIS MORNING. PT ALERT AND ORIENTED X4 , MOVES ALL EXTREMITIES AND FOLLOWS ALL COMMANDS. DENIES PAIN AT THIS TIME. ALL VS AND ASSESSMENTS CHARTED. NO DISTRESS NOTED.
--- NOTE | 2020-07-07 07:51 | ECG_ITS ---
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 Measurements Intervals [place] Rate: 77 P: 59 MI: 232 QRS: 52 QRSD: 136 T: -11 QT: 426 QTc: 485 Interpretive Statements SINUS RHYTHM WITH FIRST DEGREE AV BLOCK RIGHT BUNDLE BRANCH BLOCK [120+ ms QRS DURATION, UPRIGHT V1, 40+ ms S IN I/aVL/V4/V5/V6] Compared to ECG 07/07/2020 04:14:52 Right bundle-branch block now present Intraventricular conduction delay no longer present Myocardial infarct finding no longer present Electronically Signed On 07-07-2020 17:00:14 DAIRY FARM OPERATOR by Uziel Ramos M.D. [id number]
[2020-07-07] MEDS: regadenoson 0.4 Mg/5 ml Syringe IVP (08:08)
--- NOTE | 2020-07-07 09:31 | PC.CHAP ---
Pastoral Care Encounter/Spiritual Assessment Type of Contact [] Declined wet roller visit [] Patient/Family/Request visit [] Outpatient visit [] Follow-up visit [] Physician referral [] Code/Alert [] Routine visit [] Staff referral [] Actively dying [] Patient sleeping [] Family support [] [x] Out of room [] Palliative care [] [] Receiving care in room [] Pre-surgical visit [] Trauma [] Long length of stay [] ICU visit [] Other: Relational/Emotional Strength [] Patient feels connected with others/family/visitors/staff [] Distress [] Loneliness/isolation [] Abandonment Spirituality of Patient [] Person of Alexa [] Attends Religious of their Alexa [] Believes in Prayer [] Reads Bible or Congregation materials [] There are Spiritual issues to be addressed Automotive Mechanical Engineer Interventions [x] Prayer [] Active listening [] Non-anxious presence [] Spiritual/emotional support [] Crisis/trauma care [] Spiritual counseling [] Bereavement support [] Provided bereavement packet [] Provided Bible/devotional materials [] Provided toy/stuffed animal, coloring book to patient or family member [] Provided Communion [] Anointing/[place] [] Salvation [x] Completed spiritual assessment [] Other: Impact on Illness or Injury [] Angry [] Fearful [] Anxious [] Often cries [] Exhaustion [] Unable to work [] Unable to attend pentecostalism [] Unable to walk/stand [] Unable to read [] Unable to drive [] Unable to eat/drink [] Unable to sleep [] Unable to be with family [] Patient intubated [] Other: Summary Time spent with patient
[2020-07-07] MEDS: apixaban 5 mg Tablet PO ×2 (09:37→17:55)
[2020-07-07] MEDS: FUROsemide 20 mg Tablet PO (09:37)
[2020-07-07] MEDS: isosorbide mononitrate ER 30 mg Tablet PO (09:37)
[2020-07-07] MEDS: pantoprazole DR 40 mg Tablet 20 MG PO (09:37)
[2020-07-07] MEDS: levothyroxine 112 mcg Tablet PO (09:37)
[2020-07-07] MEDS: allopurinol 300 mg Tablet PO (09:38)
[2020-07-07] MEDS: insulin glargine 100 units/1 mL 30 UNIT SUBCUT (09:38)
[2020-07-07 10:16] LABS: Basophils % 0.2 %; Eosinophils % 0.4 %; Hematocrit 37.2 % (37.0-47.0); Hemoglobin 12.2 g/dL (11.5-15.3); Lymphocytes # 1.7 10^3/uL (0.8-4.8); Lymphocytes % 20.2 %; Mean Corpuscular HGB Conc 32.8 g/dL (30.0-36.0); Mean Corpuscular Hemoglobin 31.1 pg (28.0-34.0); Mean Corpuscular Volume 94.9 fL (81-99); Mean Platelet Volume 11.7 fL (7.4-10.4); Monocytes # 0.7 10^3/uL (0.2-0.9); Monocytes % 8.2 %; Neutrophils # 5.82 10^3/uL (1.8-7.7); Neutrophils % 69.2 %; Nucleated Red Blood Cells % 0 %; Platelet Count 165 10^3/cmm (130-400); Red Blood Count 3.92 10^6/uL (4.1-5.3); Red Cell Distribution Width 14.2 % (12.1-15.1); White Blood Count 8.4 10^3/uL (4.0-10.0)
[2020-07-07 10:40] LABS: Blood Urea Nitrogen 29 mg/dL (8-23); Calcium 9.2 mg/dL (8.5-10.5); Carbon Dioxide 25 mmol/L (22-29); Chloride 97 mmol/L (98-107); Glucose 281 mg/dL (65-115); Osmolality Calculated 298 mOsm/kg (285-295); Sodium 136 mmol/L (136-145)
[2020-07-07 10:43] LABS: Anion Gap 17.8 (5-19); Potassium 3.8 mmol/L (3.5-5.1)
[2020-07-07 10:44] LABS: Troponin(5th) Baseline 190 ng/L (0-10)
[2020-07-07 11:04] LABS: Magnesium 1.8 mg/dL (1.7-2.3)
[2020-07-07 11:35] LABS: Glucose Point of Care 223 mg/dL (70-110)
[2020-07-07 12:55] LABS: Troponin 5 2HR Delta 3.2 ABS# (0-10)
[2020-07-07 13:01] LABS: Troponin 5 2HR 193.2 ng/L (0-10)
[2020-07-07 17:20] LABS: Glucose Point of Care 174 mg/dL (70-110)
[2020-07-07 17:26] LABS: Troponin 5 6HR 213.2 ng/L (0-10); Troponin 5 6HR Delta 23.2 ng/L (0-12)
--- NOTE | 2020-07-07 19:29 | PC.NURSE ---
notified Dr segal of patients change in labs this shift no new orders received
[2020-07-07] MEDS: carbidopa-levodopa 25-100mg Tablet 2 EACH PO (20:02)
[2020-07-07 20:19] LABS: Glucose Point of Care 163 mg/dL (70-110)
[2020-07-08] VITALS (10 sets, daily range): BP systolic 147–165; BP diastolic 72–81; PULSE 71–89; RESP 14–25; TEMP 36.4–36.8; O2SAT 97–99
--- NOTE | 2020-07-08 01:28 | PC.NURSE ---
Patient has no complaints at this time. Will monitor.
--- NOTE | 2020-07-08 04:16 | PC.NURSE ---
Patient states that she wears 3 L NC at home. Patient is currently at 99 percent oxygen saturation on 1 L NC. Will monitor
[2020-07-08 06:36] LABS: Glucose Point of Care 135 mg/dL (70-110)
[2020-07-08] MEDS: insulin glargine 100 units/1 mL 30 UNIT SUBCUT (09:45)
[2020-07-08] MEDS: apixaban 5 mg Tablet PO (09:46)
[2020-07-08] MEDS: allopurinol 300 mg Tablet PO (09:46)
[2020-07-08] MEDS: levothyroxine 112 mcg Tablet PO (09:46)
[2020-07-08] MEDS: FUROsemide 20 mg Tablet PO (09:46)
[2020-07-08] MEDS: pantoprazole DR 40 mg Tablet 20 MG PO (09:46)
[2020-07-08] MEDS: isosorbide mononitrate ER 30 mg Tablet PO (09:47)
[2020-07-08 11:16] LABS: Glucose Point of Care 234 mg/dL (70-110)
--- NOTE | 2020-07-08 13:23 | PM.PN ---
Subjective Subjective: Interval history: 79-year-old female with a past medical history significant for chronic stage 3 kidney disease, hypertension, hypothyroidism, dyslipidemia, diabetes mellitus, paroxysmal atrial fibrillation on Eliquis, chronic heart failure with preserved EF and recent COVID-19 infection who presented to the hospital with chest pain which she described as a substernal heaviness. Upon initial ER evaluation patient was found to have white complex tachycardia for which she was given Cardizem 20 mg IV x1. She had converted to normal sinus rhythm. Initial troponin level was 52. upon arrival to [facility] her initial EKG was shown to be in normal sinus rhythm. Laboratory workup was repeated which showed a WBC of 8.4, hemoglobin of 12.2, hematocrit 37.2 and platelet count of 165. Sodium 136, potassium 3.8, chloride 97, bicarb 25, BUN 29 and creatinine 0.8. Troponin T baseline was checked again which showed 190. Repeat troponin after 120 minutes was 193.2 and at 6 hours. patient's chest pain had resolved. Echocardiogram was repeated which showed EF of 66% and grade 1 diastolic dysfunction without any notable regional wall motion abnormality. Also was noted to have moderate mitral valve regurgitation. A nuclear stress test was done performed which showed low likelihood of angiographically significant coronary artery disease. Patient did not have any recurrence of chest pain after admission. Vitals remained stable including baseline o2 requirements. Patient was discharged in stable condition. Medications: Reviewed: Yes Vitals/I&O/Wt Last Vital Signs Temp 98.3 F 07/08/20 10:48 Pulse 78 07/08/20 11:55 Resp 18 07/08/20 11:55 BP 153/73 07/08/20 10:48 Pulse Ox 97 07/08/20 11:55 07/07/20 07/08/20 07/08/20 22:59 06:59 14:59 Intake Total 480 / 720 400 / 1120 600 / 600 Balance 480 / 720 400 / 1120 600 / 600 Weight last 48 hrs Weight 83.461 kg Physical Exam Narrative: EXAM NARRATIVE: General : Lay in bed comfortable HEENT : EOMI CVS : NSR Chest : Non-labored respiration ABD: NT/ND EXT :NO edema Data : 07/07/20 09:47 07/07/20 09:47 A&P Assessment and plan (1) Atypical chest pain: Status: Acute (2) Intermittent atrial fibrillation: Status: Acute Patient remained stable since admission. Echocardiogram and nuclear stress test did not show any significant change or risk of angiographically significant coronary artery disease. Patient was at baseline O2 and comfortable resting in bed. In light of this she was stable for discharge with close outpatient follow-up with cardiology. Attestations Medical Necessity Statement*: Continue hospitalization until discharge possibly dated today Time Spent in Patient Care: Greater than 35 minutes (>than 50% of time spent in counselling and/or direct pt care on unit). Coding Level of Care Code Acute Athletic Monitor for Patrizia Corral Diagnoses Atypical chest pain R07.89 Intermittent atrial fibrillation I48.0
[2020-07-08 14:25] LABS: Blood Urea Nitrogen 30 mg/dL (8-23); Calcium 8.9 mg/dL (8.5-10.5); Carbon Dioxide 26 mmol/L (22-29); Chloride 101 mmol/L (98-107); Creatinine Clr Calc Pharmacy 52.1053; Glucose 284 mg/dL (65-115); Osmolality Calculated 302 mOsm/kg (285-295); Sodium 138 mmol/L (136-145)
[2020-07-08 14:27] LABS: Anion Gap 15.1 (5-19); Potassium 4.1 mmol/L (3.5-5.1)
[2020-07-08 15:21] LABS: Troponin T (5th) Once 198 ng/L (0-10)
--- NOTE | 2020-07-08 16:15 | PC.NURSE ---
discharge instructions given and explained.pt verb understanding of instructions.discharged via w/c to exit.grandson to drive pt home.
--- NOTE | 2020-07-08 21:32 | P.DS_ITS ---
Discharge Providers Date of Admission: 07/07/20 03:05 Date of Discharge: July 08, 2020 Attending Provider at Admission: Marbella Matthew MD Attending Provider at Discharge: Kolton Hardin Primary Care Provider: Terence Rogers Diagnoses at Discharge Discharge Diagnosis (1) Atypical chest pain: Status: Acute Permanent problem details: Cardiac catheterization [place] [address] Monaco. She had no significant coronary artery disease at that time. (2) Intermittent atrial fibrillation: Status: Acute Reason for Visit Reason for Visit: SVT Hospital Course Hospital Course 79-year-old female with a past medical history significant for chronic stage 3 kidney disease, hypertension, hypothyroidism, dyslipidemia, diabetes mellitus, paroxysmal atrial fibrillation on Eliquis, chronic heart failure with preserved EF and recent COVID-19 infection who presented to the hospital with chest pain which she described as a substernal heaviness. Upon initial ER evaluation patient was found to have white complex tachycardia for which she was given Cardizem 20 mg IV x1. She had converted to normal sinus rhythm. Initial troponin level was 52. upon arrival to [facility] her initial EKG was shown to be in normal sinus rhythm. Laboratory workup was repeated which showed a WBC of 8.4, hemoglobin of 12.2, hematocrit 37.2 and platelet count of 165. Sodium 136, potassium 3.8, chloride 97, bicarb 25, BUN 29 and creatinine 0.8. Troponin T baseline was checked again which showed 190. Repeat troponin after 120 minutes was 193.2 and at 6 hours. patient's chest pain had resolved. Echocardiogram was repeated which showed EF of 66% and grade 1 diastolic dysfunction without any notable regional wall motion abnormality. Also was noted to have moderate mitral valve regurgitation. A nuclear stress test was done performed which showed low likelihood of angiographically significant coronary artery disease. Patient did not have any recurrence of chest pain after admission. Vitals remained stable including baseline o2 requirements. Patient was discharged in stable condition. Physical Exam Narrative: EXAM NARRATIVE: General : Lay in bed comfortable HEENT : EOMI CVS : NSR Chest : Non-labored respiration ABD: NT/ND EXT :NO edema Discharge Data Data Completed and Pending: Completed Studies During Hospitalization Category Date Time Status NM roxi perf SPECT r/s* [id number] Routin e Nuc Med 07/07/20 05:21 Completed CV echo complete* [id number] Routine Ultrasound 07/07/20 04:47 Completed Pending at discharge Category Date Time Status Sestamibi Stress Test Request So panye Exams 07/08/20 06:00 Ordered Labs from last 24 hours 07/08/20 07/08/20 07/08/20 13:50 13:50 10:45 Sodium 138 Potassium 4.1 Chloride 101 Carbon Dioxide 26 Anion Gap 15.1 BUN 30 H Creatinine 0.9 GFR Calculation Not Reportable Glucose 284 H POC Glucose 234 H Calculated Osmolal ity 302 H Calcium 8.9 Troponin T Gen 5 n g/L 198 H* 07/08/20 06:28 Sodium Potassium Chloride Carbon Dioxide Anion Gap BUN Creatinine GFR Calculation Glucose POC Glucose 135 H Calculated Osmolal ity Calcium Troponin T Gen 5 n g/L Vitals: Last Vital Signs Temp 97.6 F 07/08/20 15:56 Pulse 87 07/08/20 15:56 Resp 25 H 07/08/20 15:56 BP 163/78 07/08/20 15:56 Pulse Ox 97 07/08/20 15:56 Discharge Plan Discharge Patient Disposition: Home Condition: Stable Prescriptions: Continued ferrous sulfate 325 mg (65 mg iron) tablet,delayed release (DR/EC) 325 mg PO BID RF: 0 furosemide 40 mg tablet 40 mg PO BID RF: 0 revefenacin 175 mcg/3 mL solution for nebulization 175 mcg inhalation DAILY 30 Days Qty: 90 RF: 3 Eliquis 5 mg tablet 5 mg PO BID 30 Days Qty: 60 RF: 5 Hold Instructions: Resume on 05/10/20. nitroglycerin 0.4 mg tablet, sublingual 0.4 mg SUBLINGUAL Q5M PRN (Reason: chest pain) 30 Days Qty: 30 RF: 3 isosorbide mononitrate 30 mg tablet extended release 24 hr 30 mg PO DAILY 30 Days Qty: 30 RF: 5 metoprolol tartrate 25 mg tablet 25 mg PO BID Qty: 180 RF: 3 magnesium hydroxide [Milk of Magnesia] 400 mg/5 mL Suspension See Rx Instructions .ROUTE .COMPLEX RF: 0 fluticasone propionate [Flonase Allergy Relief] 50 mcg/actuation [place],Suspension 2 spray INTRANASAL QAM RF: 0 Daliresp 250 mcg tablet 250 mcg PO DAILY RF: 0 omeprazole 40 mg capsule,delayed release(DR/EC) 40 mg PO DAILY RF: 0 Lantus Solostar U-100 Insulin 100 unit/mL (3 mL) insulin pen 34 unit SUBCUT BEDTIME RF: 0 sucralfate 100 mg/mL suspension See Rx Instructions .ROUTE .COMPLEX RF: 0 calcium carbonate-vitamin D3 [Calcium 600 + D(3)] 600 mg(1,500mg) -200 unit Tablet 1 tab PO DAILY RF: 0 ascorbic acid (vitamin C) [Vitamin C] 500 mg Tablet 500 mg PO DAILY RF: 0 baclofen 10 mg Tablet 10 mg PO TID PRN (Reason: Muscle Spasm) RF: 0 magnesium 250 mg Tablet 250 mg PO DAILY RF: 0 albuterol sulfate [ProAir HFA] 90 mcg/actuation Hfa Aerosol Inhaler 1 - 2 puff INHALATION Q4H PRN (Reason: Shortness Of Breath) RF: 0 coQ10 (ubiquinol) 100 mg Capsule 100 mg PO BEDTIME RF: 0 Trulicity 0.75 mg/0.5 mL pen injector See Rx Instructions .ROUTE .COMPLEX RF: 0 sennosides-docusate sodium 8.6-50 mg Tablet 1 tab-cap PO BID PRN (Reason: Constipation) RF: 0 oxycodone-acetaminophen 10-325 mg tablet 1 tab PO Q8H PRN (Reason: Pain, Mild) RF: 0 carbidopa-levodopa 25-100 mg tablet 2 tab PO BEDTIME RF: 0 Saccharomyces boulardii [Florastor] 250 mg Capsule 500 mg PO BID RF: 0 lactulose 10 gram/15 mL solution 15 ml PO BID PRN (Reason: Constipation) RF: 0 pravastatin 40 mg tablet 40 mg PO DAILY RF: 0 clonazepam 1 mg tablet 1 mg PO BEDTIME RF: 0 pramipexole 0.5 mg tablet 1 mg PO BEDTIME RF: 0 trazodone 100 mg tablet 100 mg PO BEDTIME RF: 0 oxybutynin chloride 5 mg tablet 5 mg PO TID RF: 0 cyanocobalamin (vitamin B-12) 1,000 mcg/mL solution 1,000 mcg IM Q30D RF: 0 gabapentin 300 mg capsule 300 mg PO TID RF: 0 allopurinol 300 mg tablet 300 mg PO BID RF: 0 Zyrtec 10 mg Capsule 10 mg PO BEDTIME RF: 0 Lumigan 0.01 % drops 1 drp ophthalmic (eye) BEDTIME RF: 0 levothyroxine 112 mcg capsule 112 mcg PO DAILY Qty: 30 RF: 0 docusate sodium 100 mg Capsule 100 mg PO DAILY RF: 0 potassium chloride [Klor-Con 10] 10 mEq tablet extended release 20 meq PO BID RF: 0 budesonide [Pulmicort] 0.25 mg/2 mL suspension for nebulization 0.25 mg inhalation BID PRN (Reason: Shortness Of Breath) RF: 0 Perforomist 20 mcg/2 mL solution for nebulization 2 ml inhalation BID PRN (Reason: Shortness Of Breath) RF: 0 Discharge Orders: Discharge Order (Routine); Ordered 07/08/20 Ordered By: Kolton Hardin Referrals: Vanessa Gregorio MD [Physician] - (Please follow-up with Dr. Gregorio on July 30 at 3:30p.m. If you have any questions or need to reschedule. Please call ) Terence Rogers [Primary Care Provider] - 4-7 days (Please follow-up with Dr. Rogers on July 18 at 1:40p.m. If you have any questions or need to reschedule. Please call ) Gypsy Peres FNP [Nurse Practitioner] - (Please follow-up with Gypsy Peres on July 15 at 2:30p.m. If you have any questions or need to reschedule. Please call ) Discharge Diet: Cardiac and Diabetic Discharge Activity: Resume usual activity and Increase activity as tolerated Patient Instructions: Angina (DC), Atrial Fibrillation (DC), Chest Pain Stoplight Activity Restrictions/Additional Instructions: Return Hospital for any recurrence of chest pain. Discharge Attestations Time Spent in Discharge Care*: greater than 30 min Specific Discharge Activities: educating patient, discussing with pcp/other providers (D/w Cardiology ), documenting/other paperwork and evaluating patient/reviewing data Status at Discharge: Cognitive status at discharge: cognitively intact , Behavioral status at discharge: cooperative , Functional status at discharge: independent ambulation Overall status at discharge: patient is back to baseline Quality Metrics Clinical Quality Measures During this hospital stay, did patient experience: None Coding Level of Care Code Acute Gin Pole Operator for g Fwd Diagnoses Atypical chest pain R07.89 Intermittent atrial fibrillation I48.0
== END 2020-07-08 16:14 | disposition home or self-care (01) ==
LOC: ER 01:25 → CSU 04:01
PROVIDERS: Admitting Provider Internal Medicine; Emergency Provider Family Medicine; PCP Family Medicine; Visit Provider Hospitalist
DX: I20.0 Unstable angina (principal); I48.0 Paroxysmal atrial fibrillation; I45.10 Unspecified right bundle-branch block; I25.2 Old myocardial infarction; Z91.81 History of falling; J44.9 Chronic obstructive pulmonary disease, unspecified; Z99.81 Dependence on supplemental oxygen; Z86.19 Personal history of other infectious and parasitic diseases; Z79.4 Long term (current) use of insulin; E03.9 Hypothyroidism, unspecified; E11.22 Type 2 diabetes mellitus with diabetic chronic kidney disease; I13.0 Hypertensive heart and chronic kidney disease with heart failure and stage 1 through stage 4 chronic kidney disease, or unspecified chronic kidney disease; I50.30 Unspecified diastolic (congestive) heart failure; N18.30 Chronic kidney disease, stage 3 unspecified; Z86.711 Personal history of pulmonary embolism; Z79.01 Long term (current) use of anticoagulants; M19.90 Unspecified osteoarthritis, unspecified site; K21.9 Gastro-esophageal reflux disease without esophagitis; Z82.49 Family history of ischemic heart disease and other diseases of the circulatory system; Z83.3 Family history of diabetes mellitus; Z87.891 Personal history of nicotine dependence; E78.5 Hyperlipidemia, unspecified
CPT/HCPCS: 12345; 36415; 36416; 78452; 80048; 82962; 83735; 84484; 85025; 87426; 93005; 93017; 93306; 96372; 99283; 99285; A9500; G0378; J1815 ×2; J2785

== ENCOUNTER 2020-07-16 18:42 | Emergency (ER) | payer MEDICARE, MEDICAID, SELFPAY ==
[2020-07-16] VITALS (7 sets, daily range): BP systolic 104–133; BP diastolic 53–75; PULSE 79–180; RESP 17–28; TEMP 36.7; O2SAT 98–100; BMI 34.0
--- NOTE | 2020-07-16 18:49 | ECG_ITS ---
[facility] Test Date: 2020-07-16 Pat Name: Cathryn Ramsey Department: Room: Gender: Female Insect Control Inspector: : 1940 Requested By: Thien Cline Order Number: [id number] Rodolfo MD: Vansesa Gregorio M.D. Measurements Intervals [place] Rate: 79 P: 64 [place]: 244 QRS: 45 QRSD: 135 T: -1 QT: 410 QTc: 470 Interpretive Statements SINUS RHYTHM WITH FIRST DEGREE AV BLOCK INTRAVENTRICULAR CONDUCTION DELAY [130+ ms QRS DURATION] POSSIBLE INFERIOR MYOCARDIAL INFARCTION , PROBABLY OLD [30 ms Q WAVE IN II/aVF] Compared to ECG 07/07/2020 11:36:25 Intraventricular conduction delay now present Myocardial infarct finding now present Right bundle-branch block no longer present Electronically Signed On 07-16-2020 20:18:17 DOCKET CLERK by Vanessa Gregorio M.D. [id number]
--- NOTE | 2020-07-16 19:27 | ECG_ITS ---
[facility] Test Date: 2020-07-16 Pat Name: Cathryn Ramsey Department: Room: Gender: Female Geomorphology Teacher: : 1940 Requested By: Thien Cline Order Number: [id number] Rodolfo MD: Radha Brown M.D. Measurements Intervals [place] Rate: 72 P: PA: QRS: 67 QRSD: 136 T: 57 QT: 389 QTc: 428 Interpretive Statements Sinus rhythm with first-degree AV block with PACs RIGHT BUNDLE BRANCH BLOCK [120+ ms QRS DURATION, UPRIGHT V1, 40+ ms S IN I/aVL/V4/V5/V6] Compared to ECG 07/07/2020 11:36:25 No significant change Electronically Signed On 07-18-2020 13:53:28 MACHINE LOAD CLERK by Radha Brown M.D. [id number]
--- NOTE | 2020-07-16 19:27 | XR_ITS ---
WS: [id number] Portable AP semiupright chest, 07/16/2020 Clinical Data: cp Comparison: Portable chest, 06/27/2020. Findings: No nodules, masses or effusions are seen. The heart is normal. The pulmonary vascularity is not increased. No pneumonia or pneumothorax is seen. The aortic arch and descending aorta show calci fication and tortuosity. Small recording devices are present over the left chest. Monitor leads are o n the chest wall. XR/XR chest 1V portable [id number] Impression: Atherosclerosis.
--- NOTE | 2020-07-16 19:35 | ED_ITS ---
HPI - Arrhythmia/Palpitations General: Chief Complaint: Arrhythmia/Palpitations Stated Complaint: heart monitor told her to get to closest ER Time Seen by Provider: 07/16/20 19:16 Source: patient Mode of arrival: ambulatory Limitations: no limitations History of Present Illness: HPI narrative: Cathryn is an 79-year-old female who has been having bouts of SVT. She has a heart monitor on and had alerted her and she has had palpitations this evening. Patient is in SVT heart rate in 150s. I did a vagal maneuver and had her hold her breath and lift her legs up and she did convert for roughly 2 to 3 minutes and converted back in SVT. She had some slight pain with it she states that is typical with her SVT. Denies any vomiting or diarrhea. MD complaint: rapid heart beat Associated symptoms: Deny nausea or vomiting Review of Systems Const: Denies: fever(s), chills, body aches or change in appetite Eyes: Denies: blurry vision or eye discomfort ENMT: Denies: throat pain or dental pain Card: Reports: palpitations Resp: Denies: dyspnea GI: Denies: abdominal pain, nausea, vomiting or diarrhea : Denies: dysuria Musc: Denies: neck pain or back pain Skin/Breast: Denies: rash Neuro: Denies: headache(s) Psych: Denies: depression Buzz/Lymph: Denies: easy bruising All/Imm: Denies: urticaria PFS ED PFSH: Medical History (Updated 07/16/20 @ 21:09 by Thien Cline MD) Anemia -on iron supplementation Atypical chest pain Cardiac [place] [address] Monaco. She had no significant coronary artery disease at that time. Bradycardia Chest pain Chronic anticoagulation Chronic back pain Chronic kidney disease -baseline Cr appears to be around 2-2.3 - Chronic kidney disease Chronic respiratory failure with hypoxia and hypercapnia COPD (chronic obstructive pulmonary disease) Uses 3 L [id number] and BiPAP at night COVID-19 Diastolic heart failure Diastolic heart failure Elevated troponin Former smoker GERD (gastroesophageal reflux disease) Gout History of pulmonary embolism -is on AC with Eliquis Hypertension Hypothyroidism Intermittent atrial fibrillation Normal coronary angiogram Cardiac angiogram done in September 2015 Osteoarthritis Paroxysmal A-fib Right bundle branch block Supraventricular tachycardia Symptomatic bradycardia Syncope Type 2 diabetes mellitus UTI (urinary tract infection) - Surgical History H/O colonoscopy 2019 H/O esophagogastroduodenoscopy (~04/2020) 2019 H/O hernia repair H/O left knee surgery H/O right mastectomy History of cholecystectomy History of tonsillectomy Tubal ligation status Family History Father CAD (coronary artery disease) Family history of premature coronary artery disease Hypertension Mother Cancer Chronic kidney disease (CKD) Hypertension Sister Hyperlipidemia Hypertension Daughter No problems noted. Other Diabetes Denies family history of Clotting disorder Dementia Psychiatric illness Suicide Anesthesia complication Bleeding disorder Lung disease Stroke Social History Smoking and tobacco status: former smoker Quit status (tobacco): has quit using tobacco Year quit tobacco: 1970 - 1PPD x 25 Years Second hand smoke exposure: No Smoking risk assessment/counseling performed?: No Alcohol intake: never Lives independently: Yes Household members: family Housing: House Marital status: Single Current occupational status: retired History of recent travel: No Current gender identity: Female Physical Exam Const: COMMON NORMALS: no acute distress, patient oriented x3 and healthy appearing HENMT: COMMON NORMALS: normocephalic and atraumatic HEAD & SCALP: normocephalic and atraumatic Eye: COMMON NORMALS: Equal, round and reactive pupils present and EOMs intact bilaterally PUPIL: Yes Equal, round and reactive pupils present Neck/C-Spine: COMMON NORMALS: full ROM and supple Chest: COMMONS NORMALS: normal inspection of the chest and normal palpation of entire chest wall Resp: COMMON NORMALS: normal respiratory effort, No retractions, No use of accessory muscles and clear to auscultation bilaterally AUSCULTATION: clear to auscultation bilaterally Cardio: COMMON NORMALS: No murmurs present (Cardio) RATE: tachycardic GI: COMMON NORMALS: Normal to inspection, nondistended, normoactive bowel sounds present, Soft to palpation, non-tender and no masses PALPATION: Yes Soft to palpation Extremity: COMMON NORMALS: normal to inspection and full ROM Neuro: COMMON NORMALS: patient oriented x3, moves all extremities and no focal motor deficits Psych: COMMON NORMALS: mental status grossly normal, Normal thought process present and cooperative THOUGHT PROCESS: Normal thought process present Skin: COMMON NORMALS: no rashes or lesions noted and no wounds GENERAL SKIN EXAM: no rashes or lesions noted Course Vital Signs: Vital signs: Vital Signs Temperature 98.1 F 07/16/20 19:25 Pulse Rate 162 H 07/16/20 19:25 Respiratory Rate 24 H 07/16/20 19:25 Blood Pressure 104/75 07/16/20 19:25 Pulse Oximetry 99 07/16/20 19:25 MDM - Arrhythmia/Palpitations Lab Data: Labs: Lab Results 07/16/20 07/16/20 Range/Units 20:25 20:25 WBC 8.7 (4.0-10.0) 10^3/ uL RBC 3.37 L (4.1-5.3) 10^6/u L Hgb 10.4 L (11.5-15.3) g/dL Hct 33.0 L (37.0-47.0) % MCV 97.9 (81-99) fL MCH 30.9 (28.0-34.0) pg MCHC 31.5 (30.0-36.0) g/dL RDW 14.6 (12.1-15.1) % Plt Count 121 L (130-400) 10^3/c mm MPV 12.0 H (7.4-10.4) fL Neut % (Auto) 70.5 % Lymph % (Auto) 16.9 % [place] % (Auto) 10.0 % Eos % (Auto) 1.4 % Baso % (Auto) 0.2 % Neut # (Auto) 6.11 (1.8-7.7) 10^3/u L Lymph # (Auto) 1.5 (0.8-4.8) 10^3/u L [place] # (Auto) 0.9 (0.2-0.9) 10^3/u L Eos # (Auto) 0.1 (0.0-0.8) 10^3/u L Baso # (Auto) 0.0 (0.0-0.1) 10^3/u L Nucleated RBC % (a uto) 0 % Nucleated RBCs # 0.0 /100WBC Sodium 140 (136-145) mmol/L Potassium 3.1 L (3.5-5.1) mmol/L Chloride 103 (98-107) mmol/L Carbon Dioxide 29 (22-29) mmol/L Anion Gap 11.1 (5-19) BUN 21 (8-23) mg/dL Creatinine 0.8 (0.5-0.9) mg/dL GFR Calculation Not Reportable Glucose 232 H (65-115) mg/dL Calculated Osmolal ity 300 H (285-295) mOsm/k g Calcium 8.9 (8.5-10.5) mg/dL Total Bilirubin 0.2 (0.15-1.2) mg/dL AST 11 (0-32) U/L ALT 11 (0-33) U/L Alkaline Phosphata se 72 (35-105) IU/L Total Protein 5.8 L (6.6-8.7) g/dL Albumin 3.3 L (3.5-5.2) g/dL Globulin 2.5 (1.3-4.6) g/dL Imaging Data^: CXR: Attestation: I personally reviewed and interpreted this imaging study as follows: My impression: No acute abnormality EKG Data^: EKG 1: Attestation: I personally reviewed and interpreted this EKG as follows: EKG interpretation date: 07/16/20 EKG interpretation time: 19:15 Interpretation: SVT hr [address] elevation qrs 226 qtc 394 EKG 2: Attestation: I personally reviewed and interpreted this EKG as follows: EKG interpretation date: 07/16/20 EKG interpretation time: 20:15 Interpretation: nsr hr [address] or t wave abnormalities qrs 135 qtc 444 Discharge Plan Discharge Patient Disposition: Home Clinical Impression: Atrial fibrillation Qualifiers: Atrial fibrillation type: unspecified Qualified Code(s): I48.91 - Unspecified atrial fibrillation Condition: Stable Prescriptions: No Action ferrous sulfate 325 mg (65 mg iron) tablet,delayed release (DR/EC) 325 mg PO BID RF: 0 furosemide 40 mg tablet 40 mg PO BID RF: 0 revefenacin 175 mcg/3 mL solution for nebulization 175 mcg inhalation DAILY 30 Days Qty: 90 RF: 3 Eliquis 5 mg tablet 5 mg PO BID 30 Days Qty: 60 RF: 5 Hold Instructions: Resume on 05/10/20. nitroglycerin 0.4 mg tablet, sublingual 0.4 mg SUBLINGUAL Q5M PRN (Reason: chest pain) 30 Days Qty: 30 RF: 3 isosorbide mononitrate 30 mg tablet extended release 24 hr 30 mg PO DAILY 30 Days Qty: 30 RF: 5 metoprolol tartrate 25 mg tablet 25 mg PO BID Qty: 180 RF: 3 magnesium hydroxide [Milk of Magnesia] 400 mg/5 mL Suspension See Rx Instructions .ROUTE .COMPLEX RF: 0 fluticasone propionate [Flonase Allergy Relief] 50 mcg/actuation [place],Suspension 2 spray INTRANASAL QAM RF: 0 Daliresp 250 mcg tablet 250 mcg PO DAILY RF: 0 omeprazole 40 mg capsule,delayed release(DR/EC) 40 mg PO DAILY RF: 0 Lantus Solostar U-100 Insulin 100 unit/mL (3 mL) insulin pen 34 unit SUBCUT BEDTIME RF: 0 sucralfate 100 mg/mL suspension See Rx Instructions .ROUTE .COMPLEX RF: 0 calcium carbonate-vitamin D3 [Calcium 600 + D(3)] 600 mg(1,500mg) -200 unit Tablet 1 tab PO DAILY RF: 0 ascorbic acid (vitamin C) [Vitamin C] 500 mg Tablet 500 mg PO DAILY RF: 0 baclofen 10 mg Tablet 10 mg PO TID PRN (Reason: Muscle Spasm) RF: 0 magnesium 250 mg Tablet 250 mg PO DAILY RF: 0 albuterol sulfate [ProAir HFA] 90 mcg/actuation Hfa Aerosol Inhaler 1 - 2 puff INHALATION Q4H PRN (Reason: Shortness Of Breath) RF: 0 coQ10 (ubiquinol) 100 mg Capsule 100 mg PO BEDTIME RF: 0 Trulicity 0.75 mg/0.5 mL pen injector See Rx Instructions .ROUTE .COMPLEX RF: 0 sennosides-docusate sodium 8.6-50 mg Tablet 1 tab-cap PO BID PRN (Reason: Constipation) RF: 0 oxycodone-acetaminophen 10-325 mg tablet 1 tab PO Q8H PRN (Reason: Pain, Mild) RF: 0 carbidopa-levodopa 25-100 mg tablet 2 tab PO BEDTIME RF: 0 Saccharomyces boulardii [Florastor] 250 mg Capsule 500 mg PO BID RF: 0 lactulose 10 gram/15 mL solution 15 ml PO BID PRN (Reason: Constipation) RF: 0 pravastatin 40 mg tablet 40 mg PO DAILY RF: 0 clonazepam 1 mg tablet 1 mg PO BEDTIME RF: 0 pramipexole 0.5 mg tablet 1 mg PO BEDTIME RF: 0 trazodone 100 mg tablet 100 mg PO BEDTIME RF: 0 oxybutynin chloride 5 mg tablet 5 mg PO TID RF: 0 cyanocobalamin (vitamin B-12) 1,000 mcg/mL solution 1,000 mcg IM Q30D RF: 0 gabapentin 300 mg capsule 300 mg PO TID RF: 0 allopurinol 300 mg tablet 300 mg PO BID RF: 0 Zyrtec 10 mg Capsule 10 mg PO BEDTIME RF: 0 Lumigan 0.01 % drops 1 drp ophthalmic (eye) BEDTIME RF: 0 levothyroxine 112 mcg capsule 112 mcg PO DAILY Qty: 30 RF: 0 budesonide [Pulmicort] 0.25 mg/2 mL suspension for nebulization 0.25 mg inhalation BID PRN (Reason: Shortness Of Breath) RF: 0 Perforomist 20 mcg/2 mL solution for nebulization 2 ml inhalation BID PRN (Reason: Shortness Of Breath) RF: 0 potassium chloride [Klor-Con 10] 10 mEq tablet extended release 20 meq PO DAILY RF: 0 Discharge Orders: Discharge ED (Routine); Ordered 07/16/20 Ordered By: Thien Cline Referrals: Vanessa Gregorio MD [Physician] - 1-3 days Terence Rogers [Primary Care Provider] - Discharge Diet: Advance as tolerated Discharge Activity: Resume usual activity Patient Instructions: Atrial Fibrillation (ED) Coding Level of Care Code ED Solar Installation Manager for Chg Fwd Exam Comprehensive
[2020-07-16] MEDS: adenosine 3 mg/mL SDV 2mL 6 MG IVP (19:45)
[2020-07-16] MEDS: sodium chloride 0.9% 1,000 ML 999 ML IV (19:55)
[2020-07-16 21:24] LABS: Alanine Aminotransferase 11 U/L (0-33); Albumin Level 3.3 g/dL (3.5-5.2); Alkaline Phosphatase 72 IU/L (35-105); Anion Gap 11.1 (5-19); Aspartate Amino Transferase 11 U/L (0-32); Blood Urea Nitrogen 21 mg/dL (8-23); Calcium 8.9 mg/dL (8.5-10.5); Carbon Dioxide 29 mmol/L (22-29); Chloride 103 mmol/L (98-107); Globulin 2.5 g/dL (1.3-4.6); Glucose 232 mg/dL (65-115); Osmolality Calculated 300 mOsm/kg (285-295); Potassium 3.1 mmol/L (3.5-5.1); Sodium 140 mmol/L (136-145); Total Bilirubin 0.2 mg/dL (0.15-1.2); Total Protein 5.8 g/dL (6.6-8.7)
[2020-07-16 21:29] LABS: Basophils % 0.2 %; Eosinophils # 0.1 10^3/uL (0.0-0.8); Eosinophils % 1.4 %; Hemoglobin 10.4 g/dL (11.5-15.3); Lymphocytes # 1.5 10^3/uL (0.8-4.8); Lymphocytes % 16.9 %; Mean Corpuscular HGB Conc 31.5 g/dL (30.0-36.0); Mean Corpuscular Hemoglobin 30.9 pg (28.0-34.0); Mean Corpuscular Volume 97.9 fL (81-99); Monocytes # 0.9 10^3/uL (0.2-0.9); Neutrophils # 6.11 10^3/uL (1.8-7.7); Neutrophils % 70.5 %; Nucleated Red Blood Cells % 0 %; Platelet Count 121 10^3/cmm (130-400); Red Blood Count 3.37 10^6/uL (4.1-5.3); Red Cell Distribution Width 14.6 % (12.1-15.1); White Blood Count 8.7 10^3/uL (4.0-10.0)
--- NOTE | 2020-07-17 04:24 | PC.NURSE ---
[employer] secured entrance monitor patches attached to pt with monitor placed in room
[2020-07-17 04:29] VITALS: BP 131/56; PULSE 82; RESP 18; O2SAT 100
== END 2020-07-16 21:55 | disposition home or self-care (01) ==
PROVIDERS: Emergency Provider Emergency Medicine; PCP Family Medicine
DX: I48.91 Unspecified atrial fibrillation (principal); Z79.01 Long term (current) use of anticoagulants; Z79.4 Long term (current) use of insulin; J44.9 Chronic obstructive pulmonary disease, unspecified; I11.0 Hypertensive heart disease with heart failure; I50.30 Unspecified diastolic (congestive) heart failure; E11.9 Type 2 diabetes mellitus without complications; Z87.891 Personal history of nicotine dependence
CPT/HCPCS: 12345; 36415; 71045; 80053; 85025; 93005; 96361; 96374; 96375; 99282; 99284; J0153; J3490; J7030

== ENCOUNTER 2020-08-07 10:42 | Outpatient (CLI) | payer MEDICARE, MEDICAID, SELFPAY ==
--- NOTE | 2020-08-22 09:10 | ONC FU_ITS ---
[facility] Patient Note Patient: AMANDA MAHARAJ Unit #: [id number]: 1940 Dictated By: Bladimir AngelesDate of Visit: Aug 07, 2020 Onc MED Follow-Up/Prog Note Chief Complaint: Breast cancer. History of Present Illness: This is a 76 year-old woman with a history of right breast cancer, stage IIA (T2, N0, M0), ER/WV positive. She was found to have a mass in the right breast in June 1993. 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 The maximum diameter of the tumor was 3 cm. It was ER/WV positive. She underwent right modified radical mastectomy in June 1993. There was no residual carcinoma in the mastectomy specimen and no involvement in 25 axillary lymph nodes. She was given adjuvant chemotherapy with 6 cycles of CMF, which she completed in January 1994. She was then given adjuvant hormonal therapy with 5 years of tamoxifen. Thus far during followup there has been no evidence of recurrence. Her other medical illnesses include hypertension, hyperlipidemia, type 2 diabetes, coronary artery disease, asthma/COPD, and obstructive sleep apnea. She also has degenerative arthritis. She had smoked in the past, but she quit around 1969. She is seen today for an unscheduled visit. Her last followup with Dr Sarmiento was April 24, 2017. At that time she remained on observation for breast cancer. She continues following with her primary care, Dr. Rogers. Her most recent left diagnostic mammogram was on 05/21/2020 which was reported as BI-RADS 1???negative follow-up in 1 year. She does have a history of right breast mastectomy. She has no new concerns today. She states she is here today just because she needs to have for postmastectomy bras and prosthesis. She denies any breast changes or concerns. She states overall she feels pretty good. Her activity level is still marginal at times but overall unchanged. She follows with Dr. Gregorio for a history of arrhythmia/palpitations and episodes as of SVT. Her last visit with him was July 17, 2020. She was apparently seen in the emergency room on July 16, 2020 with arrhythmia/palpitations and SVT. She was noted to have had a history of anemia, atypical chest pain, bradycardia, chronic anticoagulation, chronic kidney disease, COPD, diastolic heart failure, hypertension, A. fib, syncope and type 2 diabetes. She presented with dizziness and weakness in relation to the palpitations. Her heart rate was noted to be in the 160s. She received IV adenosine 6 mg followed by 12 mg and converted into sinus rhythm. As stated above she is followed with Dr. Gregorio regarding her arrhythmias. She denies any palpitations, chest pains or shortness of breath today. She is accompanied by her son. She has no other concerns. Her ECOG is 2. Past Medical History: Atrial fibrillation Chronic anticoagulation for Afib Chronic kidney disease Chronic obstructive pulmonary disease Congestive heart failure COVID-19 Gastroesophageal reflux disease Hyperlipidemia Hypertension Hypothyroidism Osteoarthritis Type II diabetes Past Surgical History: Flu vaccine in 2015 Allergies: codeine, contrast dye/Iodine, Mucomyst, Naproxyn, penicillin, sulfa drugs, and Tramadol. Medications: Allopurinol 1 (300 mg) Tablet Oral b.i.d. AmLODIPine Besylate 1 (5 mg) Tablet Oral daily Aspirin 1 (81 mg) Tablet Oral daily B-12 1 (500 mcg) Tablet Oral daily Calcium + D 1 (500-1000-40 mg - unt - mcg) Tablet, chewable Oral daily Carbidopa-Levodopa 1 (25-100 mg) Tablet Oral at bedtime ClonazePAM 1 (1 mg) Tablet Oral PRN Diclofenac Sodium 1 (100 mg) Tablet, enteric coated Oral daily Docusate Sodium 2 (100 mg) Capsule Oral daily Eliquis 1 (5 mg) Tablet Oral b.i.d. Ferrous Sulfate 1 (325 (65 fe) mg) Tablet Oral b.i.d. Flovent Diskus Aerosol Powder, Breath Activated Inhalation Gabapentin 1 (100 mg) Capsule Oral b.i.d. Gabapentin 1 (300 mg) Capsule Oral t.i.d. Isosorbide Mononitrate 1 (30 mg) Tablet SR 24 HR Oral daily Klor-Con 10 1 (10 meq) Tablet, controlled release Oral daily PRN Lantus SoloStar 20 Units Subcutaneous at bedtime Lasix 1 (20 mg) Tablet Oral daily PRN Levothyroxine Sodium 1 (88 mcg) Tablet Oral daily Losartan Potassium 1 (25 mg) Tablet Oral daily MetFORMIN HCl 1 (1000 mg) Tablet Oral b.i.d. Metoprolol Tartrate 1.5 (100 mg) Tablet Oral b.i.d. Mobic 1 (7.5 mg) Tablet Oral daily Nitroglycerin 1 (0.4 mg) Tablet, sublingual Sublingual PRN NovoLOG Mix 70/30 Subcutaneous Take as Directed Oxybutynin Chloride 1 (5 mg) Tablet Oral daily Pramipexole Dihydrochloride 1.5 (0.5 mg) Tablet Oral at bedtime Quinapril HCl 1 (20 mg) Tablet Oral daily Quinapril HCl 1 (5 mg) Tablet Oral daily Ranitidine HCl 1 (300 mg) Tablet Oral b.i.d. Simvastatin 1 (40 mg) Tablet Oral daily Toviaz 1 (4 mg) Tablet SR 24 HR Oral daily Family History: Social History: Ms. MAHARAJ is and she is retired. Ms. MAHARAJ quit smoking 43 years ago but had smoked 1.5 packs/day for 5 years. She has no history of drinking. Review Of Symptoms: Constitutional [id number]. Denies fevers, chills, night sweats or weight loss. Allergic/Immunologic No reactions. Eyes Denies significant visual changes. No diplopia. No amaurosis. ENMT Denies changes in hearing, sore throat, mouth sores, difficulty or changes in swallowing ability, and/or sinus drainage. Endocrine No diabetes, thyroid disease or hormone replacement. Denies hot flashes or night sweats. Hematologic/Lymphatic easy bruising-chronic and stable. Denies easy bleeding. The patient denies any tender or palpable lymph nodes. Breasts no concerns. Respiratory Denies dyspnea on exertion, cough or hemoptysis. Denies orthopnea. Cardiovascular Denies anginal chest pain, palpitations or orthopnea. Gastrointestinal Denies nausea, vomiting, GI bleeding. Denies change in bowel habits and/or stool color, no heartburn or early satiety. Genitourinary (F) No hematuria, hesitancy, incontinence, vaginal bleeding, discharge or other problems with urination. Musculoskeletal Denies joint pain, swelling or redness. No decreased range of motion. Integumentary Denies chronic rashes, inflammation, ulcerations or skin changes. Psychiatric Denies insomnia, depression, vero or mood swings. Vital Signs: Performed on Aug 07, 2020 12:25 Height - 64.00 in Weight - 178.4 lbs (LOW) BSA - 1.86 sq.m BMI - 30.62 (HIGH) Temperature - 98.0 F (LOW) Pulse - 75 /min Respiration - 17 /min BP - 157/75 mm(hg) (HIGH) O2 Sat - 98 % Pain - 7 Fatigue - 7,2 - Ambulatory/capable of all self-care, unable to perform any work activities. Up and about more than 50% of waking hours. (ECOG) Physical Examination: Constitutional Alert, oriented, no acute distress. Skin pink, warm and dry. Head Normocephalic; atraumatic. Eyes Conjunctivae and sclerae are clear and without icterus. Pupils are reactive and equal. Hematologic/Lymphatic No petechiae or purpura. No tender or palpable lymph nodes in the cervical, supraclavicular, or axillary area. Respiratory Lungs are clear to auscultation without rhonchi or wheezing. Cardiovascular Regular rate and rhythm of heart without murmurs,clicks, gallops or rubs. Abdomen Non-tender, non-distended, no masses, ascites. Good bowel sounds noted in all quads. No guarding or rebound tenderness. No pulsatile masses. Back/Spine Non-tender to palpation. Musculoskeletal No tenderness or swelling, normal range of motion without obvious weakness. Integumentary No rashes or lesions. Neurologic No sensory or motor deficits, normal cerebellar function, normal gait. Psychiatric Alert and oriented times three. Coherent speech. Verbalizes understanding of our discussions today. Laboratory: Impression: 1. Patient with infiltrating comedocarcinoma of the right breast, stage IIA, ER/WV positive, initially diagnosed in June 1993. 2. She underwent excisional biopsy of right breast mass followed by right modified radical mastectomy on 07/06/1993. 3. She was given adjuvant chemotherapy with 6 cycles of CMF, completed in October 1993. 4. She the completed adjuvant hormonal therapy with 5 years of tamoxifen. Her other medical illnesses include: 5. Hypertension. 6. Hyperlipidemia. 7. Type II diabetes. 8. Coronary artery disease. 9. Asthma/COPD. 10. Obstructive sleep apnea. 11. Degenerative arthritis. Thus far during followup there has been no evidence of recurrence of the breast cancer. Plan: PROBLEMS ADDRESSED TODAY 1. Breast cancer-post right mastectomy A. Continue Sobservation for the breast cancer. B. She has had previous mastectomy and she is in need of replacement breast prosthesis as well as post mastectomy bras, and those will be ordered through [facility] C. She is aware that she does need to continue her yearly surveillance mammogram. Her last mammogram was on 05/21/[address] Rogers's orders. D. Given the interval from her breast cancer treatment, Dr Sarmiento had just planned to see her again as needed. Signed By: Bladimir Angeles-, AOCNP Madhav Sarmiento MD <<Signature on File>>
== END 2020-08-07 10:43 | disposition home or self-care (01) ==
LOC: ONCMED 10:45
PROVIDERS: PCP Family Medicine; Visit Provider Nurse Practitioner
DX: Z08 Encounter for follow-up examination after completed treatment for malignant neoplasm (principal); Z85.3 Personal history of malignant neoplasm of breast; Z90.11 Acquired absence of right breast and nipple; Z92.21 Personal history of antineoplastic chemotherapy; Z92.23 Personal history of estrogen therapy
CPT/HCPCS: G0463

== ENCOUNTER 2020-09-04 14:52 | Outpatient (CLI) | payer MEDICARE, MEDICAID, SELFPAY ==
[2020-09-04 15:59] LABS: Basophils % 0.4 %; Eosinophils # 0.3 10^3/uL (0.0-0.8); Eosinophils % 3.8 %; Hematocrit 34.8 % (37.0-47.0); Hemoglobin 10.8 g/dL (11.5-15.3); Lymphocytes # 1.7 10^3/uL (0.8-4.8); Lymphocytes % 23.9 %; Mean Platelet Volume 11.5 fL (7.4-10.4); Monocytes # 0.5 10^3/uL (0.2-0.9); Monocytes % 7.3 %; Neutrophils % 63.6 %; Nucleated Red Blood Cells % 0 %; Platelet Count 170 10^3/cmm (130-400); Red Blood Count 3.48 10^6/uL (4.1-5.3); Red Cell Distribution Width 14.1 % (12.1-15.1); White Blood Count 7.1 10^3/uL (4.0-10.0)
[2020-09-04 16:11] LABS: INR 1.12 (0.8-1.2)
[2020-09-04 16:14] LABS: Anion Gap 10.8 (5-19); Blood Urea Nitrogen 22 mg/dL (8-23); Carbon Dioxide 35 mmol/L (22-29); Chloride 96 mmol/L (98-107); Glucose 139 mg/dL (65-115); Osmolality Calculated 292 mOsm/kg (285-295); Potassium 3.8 mmol/L (3.5-5.1); Sodium 138 mmol/L (136-145)
== END 2020-09-04 14:53 | disposition home or self-care (01) ==
PROVIDERS: PCP Family Medicine; Visit Provider Internal Medicine Cardiovascular Disease
DX: Z01.812 Encounter for preprocedural laboratory examination (principal); Z03.818 Encounter for observation for suspected exposure to other biological agents ruled out
CPT/HCPCS: 36415; 80048; 85025; 85610; 86850; 86900; 87635

== ENCOUNTER 2020-09-09 10:36 | Day surgery (SDC) | payer MEDICARE, MEDICAID, SELFPAY ==
[2020-09-09] VITALS (8 sets, daily range): BP systolic 96–134; BP diastolic 59–71; PULSE 61–76; RESP 15–18; TEMP 35.6–36.9; O2SAT 91–99; BMI 31.4
--- NOTE | 2020-09-09 12:35 | W.PM.OPSUD ---
Surgery/Procedure H&P Update DATE OF PROCEDURE: September 09, 2020 DATE H&P PERFORMED: 08/28/20 H&P UPDATE INFORMATION: I have reviewed H&P completed within last 30 days, I have examined patient prior to procedure, No changes to prior documentation and Changes to prior documentation as noted here PREOP DIAGNOSIS: Sinus node dysfunction/Symptomatic bradycardia/ PLANNED PROCEDURE: Operation Date: 09/09/20 12:00 Proposed Procedures p Pacemaker Insertion 67020 I49.5(Not Applicable) - Vanessa Gregorio MD PATIENT REASSESSED PRIOR TO SEDATION, WITH NO CHANGE NOTED: Yes PHYSICAL EXAM: alert, oriented x 3, clear to auscultation bilaterally and regular rate & rhythm AIRWAY EVAL/ANESTHESIA PLAN: normal airway, see other exam findings, ASA III, Monitored Anesthesia, Local Anesthesia, Risks, benefits & alternatives of sedation and/or procedure discussed and Patient agrees to continue as planned
--- NOTE | 2020-09-09 14:20 | PM.OP ---
Operative Report Date of procedure: September 09, 2020 Pre-op Diagnosis: Sinus node dysfunction/Symptomatic bradycardia/ Procedure: LOCATION: Outpatient PREOPERATIVE DIAGNOSES: Intermittent atrial fibrillation/symptomatic bradycardia/sinus [place] dysfunction POSTOPERATIVE DIAGNOSES: Same. COMPLICATIONS: None ESTIMATED BLOOD LOSS: Around 5 milliliters. BRIEF HISTORY: 80-year-old white female with a history of chronic intermittent atrial fibrillation presented with complaints of episodes of dizziness/near syncope. She was found to have prolonged pauses on the event monitor. For further management of the patient's condition, a permanent pacemaker implantation was recommended. A single-chamber permanent pacemaker implantation was recommended for further management because of atrial fibrillation while being in the Digital [employer]. The procedure was explained to the patient in detail with the risks and benefits. The risks of bleeding, hematoma, vascular injury, infection, pneumothorax, myocardial perforation and other concomitant complications were explained in detail, which the patient understood well and consented to proceed. PROCEDURE DESCRIPTION: The patient was brought to the Cardiac Catheterization Lab. The left and the right side of the neck and the subclavian area were cleaned and draped in a sterile fashion. 1% Xylocaine was used as the local anesthetic agent. A left subclavian venous access was obtained using a micropuncture needle system, under fluoroscopic guidance, after injecting 20 mL of Omnipaque in the left antecubital vein. A 2-inch long incision was made 2.0 centimeters below the midclavicular region. By sharp and blunt dissection, a pacemaker pocket was made. Over the guidewire, a 7-[place] venous sheath with dilator was advanced. The venous dilator and the guidewire were taken out. A screw-in ventricular lead was advanced through the venous sheath and was positioned towards the right ventricle. Under fluoroscopy guidance, the ventricular lead was positioned toward the right ventricular apex. Good pacing and sensing thresholds were obtained. The lead was secured to the endocardium by advancing the helix. The stability of the lead was tested by gentle twisting movements and also by asking the patient to take some deep breaths and cough The venous sheath was peeled off at this time. The lead was secured to the pectoralis fascia by suturing with 1-0 Surgilon. The pacemaker pocket was copiously irrigated with Vancomycin solution. Complete hemostasis was achieved. Sponge counts were confirmed. The leads was attached to a [employer] generator. The lead was positioned behind the generator and the generator was attached to the pectoralis fascia by suturing with 0 Surgilon. The pocket was closed in layers. Skin was approximated using 4-0 Vicryl. IMPLANTED DEVICES: VENTRICULAR LEAD: Model number: 5076/52 Serial number: [id number] Brand: Medtronic GENERATOR Model number:[id number] Serial number: [id number] Brand: Ashley XT SR MRI SureScan IMPLANTATION DATA: With the pacing system analyzer, the R-wave sensing was 11.7 millivolts with a lead impedance of 817 ohms and a pacing threshold of 0.6 volts at 0.4 milliseconds. Through the device, the R-wave sensing was 7.5 millivolts with a lead impedance of 722 and a pacing threshold of 0.5 volts at 0.4 milliseconds. The pacemaker was set for VVIR mode with upper rate of 130 and a lower rate of 60. A pressure dressing was applied over the pacemaker site. The patient was transferred to the Medical Floor in stable condition. A chest x-ray was ordered to confirm the lead position and also to rule out any pneumothorax.
[2020-09-09] MEDS: oxybutynin 5 mg Tablet PO ×2 (15:26→21:19)
[2020-09-09] MEDS: propafenone 150 mg Tablet PO ×2 (15:26→21:32)
--- NOTE | 2020-09-09 18:40 | PC.NURSE ---
SHIFT SUMMARY PATIENT HAS DONE WELL SINCE ARRIVING TO THE FLOOR. NO COMPLAINTS OF PAIN. GOOD URINE OUTPUT. GOOD PO INTAKE. THIS NURSE REINFORCED PRESSURE DRESSING DUE TO THE TAPE COMING LOOSE. PATIENT ON TELEMETRY. PACER SPIKES NOTED. NO COMPLAINTS.
[2020-09-09] MEDS: trazodone 100 mg Tablet PO (21:19)
[2020-09-09] MEDS: cetirizine 10 mg Tablet PO (21:19)
[2020-09-09] MEDS: ferrous sulfate EC 325 mg Tablet PO (21:19)
[2020-09-09] MEDS: FUROsemide 40 mg Tablet PO (21:19)
[2020-09-09] MEDS: allopurinol 300 mg Tablet PO (21:25)
[2020-09-09 21:26] LABS: Glucose Point of Care 169 mg/dL (70-110)
[2020-09-09] MEDS: insulin glargine 100 units/1 mL 34 UNIT SUBCUT (21:26)
[2020-09-09] MEDS: pramipexole 0.25 mg Tablet 1 MG PO (21:33)
[2020-09-09] MEDS: sodium chloride 0.9% 1,000 ML 75 ML IV (23:05)
[2020-09-09] MEDS: vancomycin 1,000 MG in sodium chloride 0.9% 250 ML 250 MG IV (23:17)
[2020-09-10] VITALS (7 sets, daily range): BP systolic 124–161; BP diastolic 69–83; PULSE 73–76; RESP 16–18; TEMP 36.6; O2SAT 96–98
[2020-09-10] MEDS: oxyCODONE-APAP 10-325 mg Tablet 1 TAB PO (04:53)
[2020-09-10] MEDS: propafenone 150 mg Tablet PO (05:46)
--- NOTE | 2020-09-10 06:00 | ECG_ITS ---
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 Measurements Intervals [place] Rate: 76 P: 79 NV: 282 QRS: 64 QRSD: 142 T: 18 QT: 431 QTc: 486 Interpretive Statements SINUS RHYTHM WITH FIRST DEGREE AV BLOCK INTRAVENTRICULAR CONDUCTION DELAY [130+ ms QRS DURATION] Compared to ECG 07/16/2020 20:15:43 Myocardial infarct finding no longer present Electronically Signed On 09-10-2020 20:59:57 MELT HOUSE SUPERVISOR by Vanessa Gregorio M.D. [id number]
--- NOTE | 2020-09-10 07:27 | XR_ITS ---
WS: [id number] Portable AP upright chest, 09/10/2020 Clinical Data: Post pacemaker Comparison: Portable chest, 07/16/2020. Findings: No nodules, masses or effusions are seen. The heart is normal. The pulmonary vascularity is not increased. No pneumonia or pneumothorax is seen. The aortic arch and descending aorta show calci fication and tortuosity. A permanent pacemaker has been inserted and the single lead ends in the hear t. The generator overlies the left lateral chest and left axilla. XR/XR chest 1V portable [id number] Impression: Satisfactory insertion of permanent cardiac pacemaker.
[2020-09-10] MEDS: allopurinol 300 mg Tablet PO (08:59)
[2020-09-10] MEDS: potassium chloride ER 20 mEq Tablet PO (08:59)
[2020-09-10] MEDS: atorvastatin 40 mg Tablet 20 MG PO (09:00)
[2020-09-10] MEDS: oxybutynin 5 mg Tablet PO (09:01)
[2020-09-10] MEDS: isosorbide mononitrate ER 30 mg Tablet PO (09:01)
[2020-09-10] MEDS: levothyroxine 112 mcg Tablet PO (09:01)
[2020-09-10] MEDS: ferrous sulfate EC 325 mg Tablet PO (09:02)
[2020-09-10] MEDS: FUROsemide 40 mg Tablet PO (09:02)
[2020-09-10] MEDS: metoprolol tartrate 25 mg Tablet PO (09:02)
[2020-09-10] MEDS: pantoprazole DR 40 mg Tablet PO (09:03)
[2020-09-10] MEDS: ascorbic acid 500 mg Tablet PO (09:03)
--- NOTE | 2020-09-10 12:17 | PC.CHAP ---
Pastoral Care Encounter/Spiritual Assessment Type of Contact [] Declined translator interpreter visit [] Patient/Family/Request visit [] Outpatient visit [] Follow-up visit [] Physician referral [] Code/Alert [X] Routine visit [] Staff referral [] Actively dying [] Patient sleeping [] Family support [] [] Out of room [] Palliative care [] [] Receiving care in room [] Pre-surgical visit [] Trauma [] Long length of stay [] ICU visit [] Other: Relational/Emotional Strength [X] Patient feels connected with others/family/visitors/staff [] Distress [] Loneliness/isolation [] Abandonment Spirituality of Patient [X] Person of Alexa [] Attends Orthodoxy of their Alexa [X] Believes in Prayer [] Reads Bible or Episcopal materials [] There are Spiritual issues to be addressed Beater And Pulper Feeder Interventions [X] Prayer [x] Active listening [x] Non-anxious presence [x] Spiritual/emotional support [] Crisis/trauma care [] Spiritual counseling [] Bereavement support [] Provided bereavement packet [] Provided Bible/devotional materials [] Provided toy/stuffed animal, coloring book to patient or family member [] Provided Communion [] Anointing/Divide [] Salvation [x] Completed spiritual assessment [] Other: Impact on Illness or Injury [] Angry [] Fearful [] Anxious [] Often cries [] Exhaustion [] Unable to work [] Unable to attend yarsani [] Unable to walk/stand [] Unable to read [] Unable to drive [] Unable to eat/drink [] Unable to sleep [] Unable to be with family [] Patient intubated [] Other: Summary Pt was happy. Stated she is being discharged and waiting for her family to arrive. Time spent with patient 10 m
== END 2020-09-10 12:40 | disposition home or self-care (01) ==
LOC: CCL 10:38 → MEDSURG 09-10 07:36
PROVIDERS: PCP Family Medicine; Visit Provider Internal Medicine Cardiovascular Disease
DX: I49.5 Sick sinus syndrome (principal); I48.91 Unspecified atrial fibrillation; J44.9 Chronic obstructive pulmonary disease, unspecified; Z86.711 Personal history of pulmonary embolism; Z87.891 Personal history of nicotine dependence; E11.22 Type 2 diabetes mellitus with diabetic chronic kidney disease; I13.0 Hypertensive heart and chronic kidney disease with heart failure and stage 1 through stage 4 chronic kidney disease, or unspecified chronic kidney disease; N18.2 Chronic kidney disease, stage 2 (mild); I50.30 Unspecified diastolic (congestive) heart failure; Z99.81 Dependence on supplemental oxygen; E03.9 Hypothyroidism, unspecified; M19.90 Unspecified osteoarthritis, unspecified site
CPT/HCPCS: 33207; 36415; 36416; 71045; 82962; 93005; 96372; 97110; 97166; C1769; C1779; C1786; C1894; J1815; J2250; J3010; J3370; J7030; J7050; Q9967

== ENCOUNTER 2020-10-11 17:24 | Emergency (ER) | payer MEDICARE, MEDICAID, SELFPAY ==
[2020-10-11 17:27] VITALS: BP 150/100; PULSE 84; RESP 18; TEMP 36.9; O2SAT 96; BMI 32.5
--- NOTE | 2020-10-11 18:04 | XRR_ITS ---
PROCEDURE INFORMATION: Exam: XR Chest Exam date and time: 10/11/2020 6:10 PM Age: 80 years old Clinical indication: Other: Bilateral shoulder pain; Prior surgery; Surgery type: Pacer; Additional info: Shoulder pain bilaterally TECHNIQUE: Imaging protocol: XR of the chest Views: 1 view. COMPARISON: CR XR chest 1V portable [id number] 09/10/2020 7:29 AM FINDINGS: Tubes, catheters and devices: There is a permanent pacemaker present. Lungs: Linear fibrosis in the left mid lung laterally. The lungs are hyperinflated, consistent with COPD. No consolidative pulmonary infiltrates are noted. Pleural spaces: Unremarkable. No pleural effusion. No pneumothorax. Heart/Mediastinum: Mild cardiomegaly is noted. Vasculature: The thoracic aorta is mildly atherosclerotic. Bones/joints: Degenerative spine changes are noted. XR/XR chest 1V portable [id number] IMPRESSION: 1. Mild cardiomegaly is noted. 2. The lungs are hyperinflated, consistent with COPD. 3. No acute cardiopulmonary disease demonstrated. 4. There is no interval change from the prior examination.
--- NOTE | 2020-10-11 18:04 | ECG_ITS ---
[facility] Test Date: 2020-10-11 Pat Name: Cathryn Ramsey Department: Room: Gender: Female Best Worker: : 1940 Requested By: Gualberto Regalado Order Number: [id number] Rodolfo MD: Vanessa Gregorio M.D. Measurements Intervals [place] Rate: 95 P: 92 MO: 239 QRS: 49 QRSD: 134 T: 25 QT: 370 QTc: 466 Interpretive Statements SINUS RHYTHM WITH FIRST DEGREE AV BLOCK WITH OCCASIONAL SUPRAVENTRICULAR PREMATURE COMPLEXES INTRAVENTRICULAR CONDUCTION DELAY [130+ ms QRS DURATION] Compared to ECG 09/10/2020 06:00:06 No significant changes Electronically Signed On 10-11-2020 20:27:53 CDT by Vanessa Gregorio M.D. [id number]
--- NOTE | 2020-10-11 18:07 | W.ED.EXTPRO ---
HPI - Extremity Problem General: Chief complaint: Extremity Problem,Nontraumatic Stated complaint: LEFT ARM PAIN Time Seen by Provider: 10/11/20 17:29 History of Present Illness: HPI Narrative: The patient is an 80-year-old female who comes to the ER complaining of bilateral shoulder and upper chest pain. She had a pacemaker placed on September 09, 2020 and was wearing a left arm sling until today when she was instructed to take it off. She says she cannot move her left arm without severe pain and it is radiating across her upper chest to her right shoulder as well. She also has a history of CHF, COPD on 3 L and is supposed to wear BiPAP at home, and history of arrhythmias with bradycardia, SVT and that was the reason for her pacemaker placement with sick sinus syndrome. The incision site itself and the pacemaker are not tender. Pain Consistency: constant Location: left and right Quality: sharp Relieving factors: nothing Associated symptoms: Reports no associated symptoms and chest pain; Deny rash Review of Systems General: Reports: 10 or more systems reviewed and unremarkable except in HPI and below Const: Denies: fatigue Eyes: Denies: change in vision, blurry vision or eye redness ENMT: Denies: throat pain, swelling of lips/tongue, ear or mastoid pain or nasal congestion Card: Reports: chest pain; Denies: palpitations, irregular heart rhythm, edema, dyspnea on exertion or orthopnea Resp: Denies: dyspnea, productive cough or non-productive cough GI: Denies: abdominal pain, diarrhea or GI cramping : Denies: flank pain, difficulty voiding, urinary frequency or urinary urgency Musc: Denies: neck pain, back pain, extremity pain, joint pain, joint redness, limited range of motion or muscle weakness Skin/Breast: Denies: rash, pruritus, erythema, skin pain or skin tenderness Neuro: Denies: headache(s), numbness in extremities, weakness in extremities, sensory changes, difficulty walking, dizziness, confusion or Slurred speech present Psych: Denies: anxiety or depression Endo: Denies: polyuria All/Imm: Denies: urticaria, throat swelling or tongue swelling PFS ED PFSH: Medical History Anemia -on iron supplementation Atypical chest pain Cardiac [place]ization [place] [address] Monaco. She had no significant coronary artery disease at that time. Bradycardia Chest pain Chronic anticoagulation Chronic back pain Chronic kidney disease -baseline Cr appears to be around 2-2.3 - Chronic kidney disease Chronic respiratory failure with hypoxia and hypercapnia COPD (chronic obstructive pulmonary disease) Uses 3 L [id number] and BiPAP at night COVID-19 Diastolic heart failure Diastolic heart failure Elevated troponin Former smoker GERD (gastroesophageal reflux disease) Gout History of pulmonary embolism -is on AC with Eliquis Hypertension Hypothyroidism Intermittent atrial fibrillation Normal coronary angiogram Cardiac angiogram done in September 2015 Osteoarthritis Pacemaker Paroxysmal A-fib Right bundle branch block Supraventricular tachycardia Symptomatic bradycardia Syncope Type 2 diabetes mellitus UTI (urinary tract infection) - Surgical History H/O colonoscopy 2019 H/O esophagogastroduodenoscopy (~04/2020) 2019 H/O hernia repair H/O left knee surgery H/O right mastectomy History of cholecystectomy History of tonsillectomy Tubal ligation status Family History Father CAD (coronary artery disease) Family history of premature coronary artery disease Hypertension Mother Cancer Chronic kidney disease (CKD) Hypertension Sister Hyperlipidemia Hypertension Daughter No problems noted. Other Diabetes Denies family history of Clotting disorder Dementia Psychiatric illness Suicide Anesthesia complication Bleeding disorder Lung disease Stroke Social History Smoking and tobacco status: former smoker Quit status (tobacco): has quit using tobacco Year quit tobacco: 1970 - 1PPD x 25 Years Second hand smoke exposure: No Smoking risk assessment/counseling performed?: Yes Alcohol intake: never Caregiver/support person: Yes Lives independently: Yes Household members: family Housing: House Marital status: Single Current occupational status: retired Pets and animals: Yes History of recent travel: No Current gender identity: Female Physical Exam Const: COMMON NORMALS: no acute distress, average body habitus, patient oriented x3, no limitations, healthy appearing, alert and well nourished GENERAL APPEARANCE: cooperative, comfortable, well kempt and well developed ORIENTATION/CONSCIOUSNESS: Yes awake, Yes oriented to person, Yes oriented to place and Yes oriented to time HENMT: COMMON NORMALS: normocephalic, external ears normal and Normal external nose present HEAD & SCALP: normal to inspection and normocephalic NOSE: Normal external nose present EXTERNAL EAR: Yes external ears normal MOUTH: Normal oral and palatal mucosa present THROAT: posterior oropharynx normal Eye: COMMON NORMALS: Equal, round and reactive pupils present and EOMs intact bilaterally GENERAL EYE: appearance normal, both eyes and all related structures PUPIL: Yes Equal, round and reactive pupils present Neck/C-Spine: COMMON NORMALS: full ROM, no lymphadenopathy, no meningeal signs and no JVD GENERAL: Yes normal visual inspection Lymph: LYMPHATIC: no lymphadenopathy noted Chest: COMMONS NORMALS: normal inspection of the chest and normal palpation of entire chest wall Resp: COMMON NORMALS: normal respiratory effort, No retractions, No use of accessory muscles, clear to auscultation bilaterally and percussion normal EFFORT & INSPECTION: Yes able to speak in complete sentences AUSCULTATION: clear to auscultation bilaterally PERCUSSION: percussion normal Cardio: COMMON NORMALS: no JVD, regular rate, regular rhythm, S1 normal heart sound present, S2 normal heart sound present and Peripheral pulses 2+ throughout RATE: regular rate RHYTHM: regular rhythm HEART SOUNDS: S1 normal heart sound present and S2 normal heart sound present PERIPHERAL PULSES: Peripheral pulses 2+ throughout GI: COMMON NORMALS: Normal to inspection, nondistended, normoactive bowel sounds present, Soft to palpation, non-tender and no masses INSPECTION: Yes normal to inspection PALPATION: Yes Soft to palpation : COMMON NORMALS: Yes no CVA tenderness BLADDER/KIDNEY EXAM: Yes no CVA tenderness Back/Pelvis: COMMON NORMALS: no CVA tenderness, thoracic and lumbar spine normal to inspection, no thoracic nor lumbar tenderness and thoraco-lumbar ROM normal Extremity: COMMON NORMALS: normal to inspection, full ROM, capillary refill normal, no joint enlargement and no pedal edema NARRATIVE EXTREMITY EXAM: Her pain is worst in her left shoulder and significantly worse with any movement of the joint. 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 Her pain seems to radiate across her upper chest to her right shoulder which is also tender with movement. Her right shoulder is more mobile than the left but still reduced and has pain with movement. Neurovascularly intact to fingertips bilaterally GENERAL: Yes normal exam except as noted Neuro: COMMON NORMALS: patient oriented x3, CN's II-XII intact bilaterally, moves all extremities, no focal motor deficits, no sensory deficits noted and gait normal SENSORIUM/ORIENTATION: Yes alert, Yes oriented to person, Yes oriented to place and Yes oriented to time MENINGEAL SIGNS: Yes no meningeal signs Psych: COMMON NORMALS: mental status grossly normal, Normal thought process present, cooperative, normal affect and speech normal APPEARANCE: Yes well kempt ATTITUDE: Yes calm SPEECH: Yes normal speech THOUGHT PROCESS: Normal thought process present Skin: COMMON NORMALS: no rashes or lesions noted GENERAL SKIN EXAM: no rashes or lesions noted Course Vital Signs: Vital signs: Vital Signs Temperature 98.5 F 10/11/20 17:27 Pulse Rate 94 10/11/20 20:27 Respiratory Rate 20 H 10/11/20 20:27 Blood Pressure 117/69 10/11/20 20:27 Pulse Oximetry 97 10/11/20 20:27 MDM - Extremity (Nontraumatic) MDM Narrative: Medical decision making narrative: The patient came into the ER complaining of mostly left shoulder pain worse with movement. Today she was allowed to take her arm sling off. She wear the arm sling since her pacemaker was placed a couple weeks ago. She says the pain radiates around her upper chest into her right shoulder as well. Symptoms were mostly atypical for true angina pain and she is on Eliquis for history of PE. She has severe COPD and wears 3 L baseline and is supposed to wear BiPAP at home. She has no increased shortness of breath and she is on Eliquis so the CT angiogram was not performed also because it is listed as an allergy. 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 She is to return to the ER with any worsening symptoms at all. Follow-up with primary care physician in a couple days Lab Data: Labs: Lab Results 10/11/20 10/11/20 10/11/20 Range/Units 18:42 18:42 18:42 WBC 12.5 H (4.0-10.0) 10^3/ uL RBC 3.79 L (4.1-5.3) 10^6/u L Hgb 11.4 L (11.5-15.3) g/dL Hct 36.4 L (37.0-47.0) % MCV 96.0 (81-99) fL MCH 30.1 (28.0-34.0) pg MCHC 31.3 (30.0-36.0) g/dL RDW 14.0 (12.1-15.1) % Plt Count 156 (130-400) 10^3/c mm MPV 11.0 H (7.4-10.4) fL Neut % (Auto) 78.5 % Lymph % (Auto) 12.1 % [place] % (Auto) 8.4 % Eos % (Auto) 0.5 % Baso % (Auto) 0.2 % Neut # (Auto) 9.82 H (1.8-7.7) 10^3/u L Lymph # (Auto) 1.5 (0.8-4.8) 10^3/u L [place] # (Auto) 1.1 H (0.2-0.9) 10^3/u L Eos # (Auto) 0.1 (0.0-0.8) 10^3/u L Baso # (Auto) 0.0 (0.0-0.1) 10^3/u L Nucleated RBC % (a uto) 0 % Nucleated RBCs # 0.0 /100WBC D-Dimer 0.93 H (0-0.59) ug/mIFE U Sodium 139 (136-145) mmol/L Potassium 4.0 (3.5-5.1) mmol/L Chloride 99 (98-107) mmol/L Carbon Dioxide 28 (22-29) mmol/L Anion Gap 16.0 (5-19) BUN 16 (8-23) mg/dL Creatinine 0.7 (0.5-0.9) mg/dL GFR Calculation Not Reportable Glucose 187 H (65-115) mg/dL Calculated Osmolal ity 294 (285-295) mOsm/k g Calcium 9.5 (8.5-10.5) mg/dL Total Bilirubin 0.3 (0.15-1.2) mg/dL AST 15 (0-32) U/L ALT 11 (0-33) U/L Alkaline Phosphata se 117 H (35-105) IU/L Troponin T Baselin e (0-10) ng/L Troponin T 120 Min [place] (0-10) ng/L Delta Troponin T (0-10) ABS# NT-Pro-B Natriuret Pep 988 H (0-450) pg/mL Total Protein 7.1 (6.6-8.7) g/dL Albumin 3.6 (3.5-5.2) g/dL Globulin 3.5 (1.3-4.6) g/dL Urine Color (Yellow) Urine Appearance (CLEAR) Urine pH (5-7) Ur Specific Gravit y (1.005-1.030) Urine Protein (Negative) Urine Glucose (UA) (Normal) Urine Ketones (Negative) Urine Blood (Negative) Urine Nitrate (Negative) Urine Bilirubin (Negative) Urine Urobilinogen (Negative) mg/dL Ur Leukocyte Susie ase (Negative) Urine RBC (0-2) /hpf Urine WBC (0-5) /hpf Ur Squamous Epith Cells (0-5) /hpf Amorphous Sediment Urine Bacteria (NONE) /hpf 10/11/20 10/11/20 10/11/20 Range/Units 18:42 19:55 20:42 WBC (4.0-10.0) 10^3/ uL RBC (4.1-5.3) 10^6/u L Hgb (11.5-15.3) g/dL Hct (37.0-47.0) % MCV (81-99) fL MCH (28.0-34.0) pg MCHC (30.0-36.0) g/dL RDW (12.1-15.1) % Plt Count (130-400) 10^3/c mm MPV (7.4-10.4) fL Neut % (Auto) % Lymph % (Auto) % [place] % (Auto) % Eos % (Auto) % Baso % (Auto) % Neut # (Auto) (1.8-7.7) 10^3/u L Lymph # (Auto) (0.8-4.8) 10^3/u L [place] # (Auto) (0.2-0.9) 10^3/u L Eos # (Auto) (0.0-0.8) 10^3/u L Baso # (Auto) (0.0-0.1) 10^3/u L Nucleated RBC % (a uto) % Nucleated RBCs # /100WBC D-Dimer (0-0.59) ug/mIFE U Sodium (136-145) mmol/L Potassium (3.5-5.1) mmol/L Chloride (98-107) mmol/L Carbon Dioxide (22-29) mmol/L Anion Gap (5-19) BUN (8-23) mg/dL Creatinine (0.5-0.9) mg/dL GFR Calculation Glucose (65-115) mg/dL Calculated Osmolal ity (285-295) mOsm/k g Calcium (8.5-10.5) mg/dL Total Bilirubin (0.15-1.2) mg/dL AST (0-32) U/L ALT (0-33) U/L Alkaline Phosphata se (35-105) IU/L Troponin T Baselin e 24 H (0-10) ng/L Troponin T 120 Min [place] 26.03 H (0-10) ng/L Delta Troponin T 2.03 (0-10) ABS# NT-Pro-B Natriuret Pep (0-450) pg/mL Total Protein (6.6-8.7) g/dL Albumin (3.5-5.2) g/dL Globulin (1.3-4.6) g/dL Urine Color Yellow (Yellow) Urine Appearance Clear (CLEAR) Urine pH 7 (5-7) Ur Specific Gravit y 1.010 (1.005-1.030) Urine Protein 2+ H (Negative) Urine Glucose (UA) Norm (Normal) Urine Ketones Negative (Negative) Urine Blood Neg (Negative) Urine Nitrate Negative (Negative) Urine Bilirubin Neg (Negative) Urine Urobilinogen Norm (Negative) mg/dL Ur Leukocyte Susie ase Negative (Negative) Urine RBC 0-4 H (0-2) /hpf Urine WBC 0-4 H (0-5) /hpf Ur Squamous Epith Cells 25-40 H (0-5) /hpf Amorphous Sediment Not Reportable Urine Bacteria 2+ H (NONE) /hpf Discharge Plan Discharge Patient Disposition: Home Clinical Impression: Acute shoulder pain Condition: Stable Prescriptions: No Action ferrous sulfate 325 mg (65 mg iron) tablet,delayed release (DR/EC) 325 mg PO BID RF: 0 furosemide 40 mg tablet 40 mg PO BID RF: 0 revefenacin 175 mcg/3 mL solution for nebulization 175 mcg inhalation DAILY 30 Days Qty: 90 RF: 3 Eliquis 5 mg tablet 5 mg PO BID 30 Days Qty: 60 RF: 5 Hold Instructions: Resume on 09/10/20. May restart this medicine today after 4:00 PM nitroglycerin 0.4 mg tablet, sublingual 0.4 mg SUBLINGUAL Q5M PRN (Reason: chest pain) 30 Days Qty: 30 RF: 3 metoprolol tartrate 25 mg tablet 25 mg PO BID Qty: 180 RF: 3 propafenone 150 mg tablet 150 mg PO Q8H Qty: 90 RF: 5 isosorbide mononitrate 30 mg tablet extended release 24 hr See Rx Instructions .ROUTE .COMPLEX Qty: 90 RF: 3 magnesium hydroxide [Milk of Magnesia] 400 mg/5 mL Suspension See Rx Instructions .ROUTE .COMPLEX RF: 0 fluticasone propionate [Flonase Allergy Relief] 50 mcg/actuation [place],Suspension 2 spray INTRANASAL QAM RF: 0 Daliresp 250 mcg tablet 250 mcg PO DAILY RF: 0 omeprazole 40 mg capsule,delayed release(DR/EC) 40 mg PO DAILY RF: 0 Lantus Solostar U-100 Insulin 100 unit/mL (3 mL) insulin pen 34 unit SUBCUT BEDTIME RF: 0 sucralfate 100 mg/mL suspension See Rx Instructions .ROUTE .COMPLEX RF: 0 calcium carbonate-vitamin D3 [Calcium 600 + D(3)] 600 mg(1,500mg) -200 unit Tablet 1 tab PO DAILY RF: 0 ascorbic acid (vitamin C) [Vitamin C] 500 mg Tablet 500 mg PO DAILY RF: 0 magnesium 250 mg Tablet 250 mg PO DAILY RF: 0 coQ10 (ubiquinol) 100 mg Capsule 100 mg PO BEDTIME RF: 0 Trulicity 0.75 mg/0.5 mL pen injector See Rx Instructions .ROUTE .COMPLEX RF: 0 sennosides-docusate sodium 8.6-50 mg Tablet 1 tab-cap PO BID PRN (Reason: Constipation) RF: 0 oxycodone-acetaminophen 10-325 mg tablet 1 tab PO Q8H PRN (Reason: Pain, Mild) RF: 0 carbidopa-levodopa 25-100 mg tablet 2 tab PO BEDTIME RF: 0 Saccharomyces boulardii [Florastor] 250 mg Capsule 500 mg PO BID RF: 0 lactulose 10 gram/15 mL solution 15 ml PO BID PRN (Reason: Constipation) RF: 0 pravastatin 40 mg tablet 40 mg PO DAILY RF: 0 clonazepam 1 mg tablet 1 mg PO BEDTIME RF: 0 pramipexole 0.5 mg tablet 1 mg PO BEDTIME RF: 0 trazodone 100 mg tablet 100 mg PO BEDTIME RF: 0 oxybutynin chloride 5 mg tablet 5 mg PO TID RF: 0 cyanocobalamin (vitamin B-12) 1,000 mcg/mL solution 1,000 mcg IM Q30D RF: 0 gabapentin 300 mg capsule 300 mg PO TID RF: 0 allopurinol 300 mg tablet 300 mg PO BID RF: 0 Zyrtec 10 mg Capsule 10 mg PO BEDTIME RF: 0 Lumigan 0.01 % drops 1 drp ophthalmic (eye) BEDTIME RF: 0 levothyroxine 112 mcg capsule 112 mcg PO DAILY Qty: 30 RF: 0 budesonide [Pulmicort] 0.25 mg/2 mL suspension for nebulization 0.25 mg inhalation BID PRN (Reason: Shortness Of Breath) RF: 0 Perforomist 20 mcg/2 mL solution for nebulization 2 ml inhalation BID PRN (Reason: Shortness Of Breath) RF: 0 potassium chloride [Klor-Con 10] 10 mEq tablet extended release 20 meq PO DAILY RF: 0 Discharge Orders: Discharge ED (Routine); Ordered 10/11/20 Ordered By: Gualberto Regalado Referrals: Terence Rogers [Primary Care Provider] - Discharge Diet: Advance as tolerated Discharge Activity: Resume usual activity Patient Instructions: Adhesive Capsulitis (ED), Opioid Safety Activity Restrictions/Additional Instructions: 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 Please follow-up with your primary care physician in a couple days to discuss further and take your medications at home for pain. Return to the ER with worsening symptoms. Return to the ER at anytime with any worrisome symptoms such as chest pain, or shortness of breath. Coding Level of Care Code ED Agronomy Supervisor for Patrizia Fwd Exam Comprehensive
[2020-10-11 18:46] LABS: Basophils % 0.2 %; Eosinophils # 0.1 10^3/uL (0.0-0.8); Eosinophils % 0.5 %; Hematocrit 36.4 % (37.0-47.0); Hemoglobin 11.4 g/dL (11.5-15.3); Lymphocytes # 1.5 10^3/uL (0.8-4.8); Lymphocytes % 12.1 %; Mean Corpuscular HGB Conc 31.3 g/dL (30.0-36.0); Mean Corpuscular Hemoglobin 30.1 pg (28.0-34.0); Monocytes # 1.1 10^3/uL (0.2-0.9); Monocytes % 8.4 %; Neutrophils # 9.82 10^3/uL (1.8-7.7); Neutrophils % 78.5 %; Nucleated Red Blood Cells % 0 %; Platelet Count 156 10^3/cmm (130-400); Red Blood Count 3.79 10^6/uL (4.1-5.3); White Blood Count 12.5 10^3/uL (4.0-10.0)
[2020-10-11 18:54] VITALS: PULSE 87
[2020-10-11 19:08] LABS: D Dimer 0.93 ug/mIFEU (0-0.59)
[2020-10-11 19:18] LABS: Troponin(5th) Baseline 24 ng/L (0-10)
[2020-10-11 19:21] LABS: Alanine Aminotransferase 11 U/L (0-33); Albumin Level 3.6 g/dL (3.5-5.2); Alkaline Phosphatase 117 IU/L (35-105); Aspartate Amino Transferase 15 U/L (0-32); Blood Urea Nitrogen 16 mg/dL (8-23); Calcium 9.5 mg/dL (8.5-10.5); Carbon Dioxide 28 mmol/L (22-29); Chloride 99 mmol/L (98-107); Globulin 3.5 g/dL (1.3-4.6); Glucose 187 mg/dL (65-115); NT Pro B Type Natriuretic Pept 988 pg/mL (0-450); Osmolality Calculated 294 mOsm/kg (285-295); Sodium 139 mmol/L (136-145); Total Bilirubin 0.3 mg/dL (0.15-1.2); Total Protein 7.1 g/dL (6.6-8.7)
[2020-10-11 20:08] VITALS: RESP 18; O2SAT 96
[2020-10-11] MEDS: morphine 4 mg/mL SDV 1 mL 2 MG IVP (20:08)
[2020-10-11 20:26] LABS: Add Urine Microscopic? YES; Bilirubin Urine Neg (Negative); Blood Urine Neg (Negative); Glucose Urine UA Norm (Normal); Ketones Urine Negative (Negative); Leukocyte Esterase Urine Negative (Negative); Nitrate Urine Negative (Negative); Protein Urine 2+ (Negative); Urine Appearance Clear (CLEAR); Urine Color Yellow (Yellow); Urobilinogen Urine Norm (Negative); pH Urine 7 (5-7)
[2020-10-11 20:27] VITALS: BP 117/69; PULSE 94; RESP 20; O2SAT 97
[2020-10-11 20:30] LABS: Add Urine Culture? No; Bacteria Urine 2+ /hpf; RBC Urine 0-4 /hpf (0-2); Squamous Epithelial Cell Urine 25-40 /hpf (0-5); WBC Urine 0-4 /hpf (0-5)
[2020-10-11 21:10] LABS: Troponin 5 2HR 26.03 ng/L (0-10); Troponin 5 2HR Delta 2.03 ABS# (0-10)
[2020-10-11 23:13] VITALS: BP 136/82; PULSE 72; RESP 18; O2SAT 95
== END 2020-10-11 23:13 | disposition home or self-care (01) ==
PROVIDERS: Emergency Provider Family Medicine; PCP Family Medicine
DX: M25.512 Pain in left shoulder (principal); Z79.01 Long term (current) use of anticoagulants; J44.9 Chronic obstructive pulmonary disease, unspecified; I11.0 Hypertensive heart disease with heart failure; I50.30 Unspecified diastolic (congestive) heart failure; Z95.0 Presence of cardiac pacemaker; E11.9 Type 2 diabetes mellitus without complications; Z87.891 Personal history of nicotine dependence; I70.0 Atherosclerosis of aorta
CPT/HCPCS: 71045; 80053; 81001; 83880; 84484; 85025; 85378; 93005; 99283; J2270

== ENCOUNTER → 2020-12-15 08:16 | Outpatient (BNVA) | payer MEDICARE, MEDICAID, SELFPAY | PROVIDERS: PCP Family Medicine; Referring Provider Family Medicine; Visit Provider Urology | DX: N28.1 Cyst of kidney, acquired (principal) | CPT/HCPCS: 81003 ==

== ENCOUNTER → 2021-02-10 10:28 | Outpatient (BNVA) | payer MEDICARE, MEDICAID, SELFPAY | PROVIDERS: PCP Family Medicine; Referring Provider Family Medicine; Visit Provider Orthopaedic Surgery | DX: M47.897 Other spondylosis, lumbosacral region (principal); M47.896 Other spondylosis, lumbar region; M54.5 Low back pain | CPT/HCPCS: 72110 ==

== ENCOUNTER 2021-04-01 10:39 | Outpatient (CLI) | payer MEDICARE, MEDICAID, SELFPAY ==
--- NOTE | 2021-04-01 10:48 | CT_ITS ---
WS: [id number] CT of the lumbar spine, additional two-dimensional coronal and sagittal imaging was obtained. 04/01/20 Clinical Data: LOW BACK PAIN Comparison: Lumbar spine, 02/10/2021. DLP: 2008.[address] scans at [facility] use at least one of these dose optimization techniques: automated e xposure control; mA and/or kV adjustment per patient size (includes targeted exams where dose is matc hed to clinical indication); or iterative reconstruction. Findings: There is a levoscoliosis with degenerative change of the lumbar vertebral bodies. There is disc space narrowing at L2-L3, L3-L4 and L5-S1. The transverse processes and SI joints are intact. Th ere are no compression fractures or subluxation. T12-L1: There is no disc protrusion but there is slight hypertrophy of the facet joints causing mild foraminal stenosis. L1-L2: There is a disc osteophyte complex along with facet joint arthritis causing mild canal and for aminal stenosis. L2-L3: There is a disc osteophyte complex with facet joint arthritis causing canal and foraminal sten osis. L3-L4: There is a disc osteophyte complex with facet joint hypertrophy causing canal and foraminal st enosis. L4-L5: There is a disc protrusion along with facet joint hypertrophy causing foraminal and canal sten osis. L5-S1: There is a disc osteophyte complex along with facet joint hypertrophy causing canal and forami nal stenosis. CT/CT lumbar spine wo con* [id number] Impression: 1. Multilevel disc osteophyte complex along with facet joint hypertrophy causin g canal and foraminal stenosis. 2. Multilevel degenerative disc changes. 3. Moderate osteoarthritis and levoscoliosis of the lumbar vertebral bodies.
== END 2021-04-01 10:40 | disposition home or self-care (01) ==
PROVIDERS: PCP Family Medicine; Visit Provider Nurse Practitioner
DX: M54.5 Low back pain (principal); M25.78 Osteophyte, vertebrae; M47.816 Spondylosis without myelopathy or radiculopathy, lumbar region; M41.86 Other forms of scoliosis, lumbar region
CPT/HCPCS: 72131

== ENCOUNTER → 2021-05-22 11:33 | Day surgery (SDC) | payer MEDICARE, MEDICAID, SELFPAY | PROVIDERS: PCP Family Medicine; Visit Provider Orthopaedic Surgery | DX: Z01.818 Encounter for other preprocedural examination (principal); M48.062 Spinal stenosis, lumbar region with neurogenic claudication | CPT/HCPCS: 93005 ==

== ENCOUNTER → 2021-05-25 08:56 | Outpatient (BNVA) | payer MEDICARE, MEDICAID, SELFPAY | PROVIDERS: PCP Family Medicine; Visit Provider Orthopaedic Surgery | DX: Z20.822 Contact with and (suspected) exposure to COVID-19 (principal); M48.062 Spinal stenosis, lumbar region with neurogenic claudication | CPT/HCPCS: 87635 ==

== ENCOUNTER 2021-05-29 06:58 | Day surgery (SDC) | payer MEDICARE, MEDICAID, SELFPAY ==
[2021-05-22 10:21] VITALS: BMI 29.3
[2021-05-22 11:07] LABS: Basophils % 0.3 %; Eosinophils # 0.1 10^3/uL (0.0-0.8); Eosinophils % 1.6 %; Hematocrit 41.3 % (37.0-47.0); Hemoglobin 13.2 g/dL (11.5-15.3); Lymphocytes # 2.4 10^3/uL (0.8-4.8); Lymphocytes % 30.2 %; Mean Corpuscular Hemoglobin 31.3 pg (28.0-34.0); Mean Corpuscular Volume 97.9 fl (81-99); Mean Platelet Volume 10.9 fL (7.4-10.4); Monocytes # 0.6 10^3/uL (0.2-0.9); Monocytes % 7.7 %; Neutrophils # 4.77 10^3/uL (1.8-7.7); Neutrophils % 59.8 %; Nucleated Red Blood Cells % 0 %; Platelet Count 174 10^3/cmm (130-400); Red Blood Count 4.22 10^6/uL (4.1-5.3)
--- NOTE | 2021-05-22 11:33 | ECG_ITS ---
[facility] Test Date: 2021-05-22 Pat Name: Cathryn Ramsey Department: Room: Gender: Female Suspect Artist: : 1940 Requested By: Roberta Vaneags Order Number: [id number] Rodolfo MD: Uziel Ramos M.D. Measurements Intervals [place] Rate: 80 P: 41 [place]: 150 QRS: 49 QRSD: 136 T: 15 QT: 411 QTc: 476 Interpretive Statements SINUS RHYTHM WITH OCCASIONAL SUPRAVENTRICULAR PREMATURE COMPLEXES RIGHT BUNDLE BRANCH BLOCK [120+ ms QRS DURATION, UPRIGHT V1, 40+ ms S IN I/aVL/V4/V5/V6] Compared to ECG 10/11/2020 20:15:32 Right bundle-branch block now present First degree AV block no longer present Intraventricular conduction delay no longer present Electronically Signed On 05-22-2021 19:50:23 SHANK FAKER by Uziel Ramos M.D. [id number]
--- NOTE | 2021-05-22 11:37 | ANES.PREANE2 ---
Pre-Anesthetic Assessment Pre-Anesthetic Assessment: Height/Weight: Height 1.63 m Weight 77.564 kg Preop Diagnosis: Lumbar stenosis with neurogenic claudication Proposed Procedure: Operation Date: 05/29/21 08:35 Proposed Procedures p Lumbar Spine Decompression L4/5 L5/S1 [id number] M48.062(Not Applicable) - Evaristo Perdomo DO Familial anesthetic complications: None Social: Social History: No alcohol and No tobacco Exam: Pre-Anes Outpt Exam: alert, oriented x 3, clear to auscultation bilaterally and regular rate & rhythm Airway: MP: 4 Dentition: Other (no teeth) Pulmonary: Pulmonary: COPD (3 L NC continuously) and Sleep apnea Comments: Going to see Dr. Rogers PCP at [facility] before surgery CV/HEM: CV/HEM: Afib and Arrythmia Comments: pacemaker IMPRESSIONS 1. Myocardial perfusion imaging is normal. 2. Overall left ventricular systolic function is normal without regional wall motion abnormalities. 3. The left ventricular ejection fraction is normal with a value of 70%. 4. This study suggests a low likelihood of angiographically significant coronary artery disease. 5. There has been no change when compared to previous study from April 2019. Echo CONCLUSIONS Normal left ventricular size and systolic function, EF 66 %. Mild to moderate concentric left ventricular hypertrophy.no regional wall motion abnormalities.type I diastolic dysfunction. [id number] tricuspid valve regurgitation. Mild pulmonary hypertension with estimated pulmonary artery peak systolic pressure of 41 mmHg Trace pulmonary valve regurgitation. Moderate to heavy mitral annular calcification.moderate mitral valve regurgitation. Appears to have at least mild mitral valve stenosis. The peak velocity 1.96 m/s. Moderately increased left atrial size. There is no pericardial effusion. There are no intracardiac masses. In view of the difference in the technical quality, comparison with the previous study is difficult. No significant difference was noted from the study on 07/31/2019. The mitral valve Doppler studies and mitral valve area calculations need to be repeated Metabolic: Metabolic: DM Anesthetic Plan: ASA status: 3 Anesthesia: General Risk of > 500 ml blood loss (7ml/kg in children): No PFSH Anesthesia PFSH: Medical History Anemia -on iron supplementation Atypical chest pain Cardiac [place] [address] Monaco. She had no significant coronary artery disease at that time. Bilateral renal cysts On multiple imaging modalities all appear simple. No further work-up recommended December 2020 Bradycardia Chest pain Chronic anticoagulation Chronic back pain Chronic kidney disease -baseline Cr appears to be around 2-2.3 - Chronic kidney disease Chronic respiratory failure with hypoxia and hypercapnia COPD (chronic obstructive pulmonary disease) Uses 3 L [id number] and BiPAP at night COVID-19 Diastolic heart failure Diastolic heart failure Elevated troponin Former smoker GERD (gastroesophageal reflux disease) Gout History of pulmonary embolism -is on AC with Eliquis Hypertension Hypothyroidism Intermittent atrial fibrillation Normal coronary angiogram Cardiac angiogram done in September 2015 Osteoarthritis Pacemaker Paroxysmal A-fib Right bundle branch block Supraventricular tachycardia Symptomatic bradycardia Syncope Type 2 diabetes mellitus UTI (urinary tract infection) - Surgical History H/O colonoscopy 2019 H/O esophagogastroduodenoscopy (~04/2020) 2019 H/O hernia repair H/O left knee surgery H/O right mastectomy History of cholecystectomy History of tonsillectomy Tubal ligation status Family History Father CAD (coronary artery disease) Family history of premature coronary artery disease Hypertension Mother Cancer Chronic kidney disease (CKD) Hypertension Sister Hyperlipidemia Hypertension Daughter No problems noted. Other Diabetes Social History Smoking and tobacco status: former smoker Quit status (tobacco): has quit using tobacco Year quit tobacco: 1970 - 1PPD x 25 Years Alcohol intake: never Caregiver/support person: Yes Lives independently: Yes Household members: family Housing: House Marital status: / Current occupational status: retired History of recent travel: No Data Anesthesia CBC & Chem 7: 05/22/21 10:55 05/22/21 10:55 Other Labs: Laboratory Results - last 48 hr 05/22/21 10:55 WBC 8.0 RBC 4.22 Hgb 13.2 Hct 41.3 MCV 97.9 MCH 31.3 MCHC 32.0 RDW 14.0 Plt Count 174 MPV 10.9 H Neut % (Auto) 59.8 Lymph % (Auto) 30.2 [place] % (Auto) 7.7 Eos % (Auto) 1.6 Baso % (Auto) 0.3 Neut # (Auto) 4.77 Lymph # (Auto) 2.4 [place] # (Auto) 0.6 Eos # (Auto) 0.1 Baso # (Auto) 0.0 Nucleated RBC % (auto) 0 Nucleated RBCs # 0.0 Cardiac Studies: Cardiac Event Monitor 07/17/20 Holter Monitor 01/24/20
[2021-05-22 11:46] LABS: Anion Gap 15.3 (5-19); Blood Urea Nitrogen 21 mg/dL (8-23); Calcium 9.7 mg/dL (8.5-10.5); Carbon Dioxide 29 mmol/L (22-29); Chloride 99 mmol/L (98-107); Glucose 147 mg/dL (65-115); Osmolality Calculated 294 mOsm/kg (285-295); Potassium 4.3 mmol/L (3.5-5.1); Sodium 139 mmol/L (136-145)
[2021-05-29] VITALS (8 sets, daily range): BP systolic 141–194; BP diastolic 64–82; PULSE 70–86; RESP 14–19; TEMP 36.2–36.6; O2SAT 98–100
--- NOTE | 2021-05-29 | SCC_ITS ---
Procedure Done: 1. bilateral L4/5 laminectomy with partail facetectomies 2. bilateral L5/S1 laminectomy with partial facetectomies 24.5 seconds of fluoroscopic guidance, for a cumulative dose of 11.85 mGy, was provided to Dr. Perdomo by the radiology department. C-arm images of the lumbar spine were saved for the patient's permanent record. [facility]
--- NOTE | 2021-05-29 | XR_ITS ---
WS: [id number] Exam: XR lumbar spine 1V [id number] Date/Time of Exam: 05/29/2021 12:00 AM Reason For Exam: decompression Limited AP intraoperative C-arm images of the lumbar spine are submitted.. The images demonstrate a port superimposing the L4-5 disc space. No other significant finding on this limited exam.
[2021-05-29 07:51] LABS: Glucose Point of Care 150 mg/dL (70-110)
[2021-05-29] MEDS: sodium chloride 0.9% 1,000 ML 30 ML IV (07:54)
--- NOTE | 2021-05-29 08:19 | P.ANESUD_ITS ---
Pre-Anesthetic Update Pre-Anesthetic Assessment: Date of Surgery/Procedure: 05/29/21 Preop Jennifer gnosis: Lumbar stenosis with neurogenic claudication Proposed Procedure: Operation Date: 05/29/21 08:25 Proposed Procedures p Lumbar Spine Decompression L4/5 L5/S1 38511 20614 M48.062(Not Applicable) - Evaristo H Leanne, DO Any changes to Pre-Anesthetic Assessment?: No Last Intake: Intake Last Liquid Date 05/28/21 Last Liquid Time 22:00 Last Solid Date 05/28/21 Last Solid Time 17:00 Labs Last 48hrs: Laboratory Results - last 48 hr 05/29/21 07:45 POC Glucose 150 H Vitals: Temperature 97.1 F L 05/29/21 07:26 Temperature Source Temporal Artery S can 05/29/21 07:26 Pulse Rate 86 05/29/21 07:26 Respiratory Rate 18 05/29/21 07:26 Blood Pressure 171/82 05/29/21 07:26 Blood Pressure Cat n 111 05/29/21 07:26 Pulse Oximetry 99 05/29/21 07:26 Oxygen Delivery Me thod 05/29/21 07:26 Oxygen Flow Rate 3 05/29/21 07:26 Exam: Pre-Anes Outpt Exam: alert, oriented x 3, clear to auscultation bilaterally and regular rate & rhythm Cardiac Studies: Cardiac Event Monitor 07/17/20 Holter Monitor 01/24/20
--- NOTE | 2021-05-29 08:20 | W.PM.OPSUD ---
Surgery/Procedure H&P Update DATE OF PROCEDURE: May 29, 2021 DATE H&P PERFORMED: 05/05/21 H&P UPDATE INFORMATION: I have reviewed H&P completed within last 30 days, I have examined patient prior to procedure and No changes to prior documentation PREOP DIAGNOSIS: Lumbar stenosis with neurogenic claudication PLANNED PROCEDURE: Operation Date: 05/29/21 08:25 Proposed Procedures p Lumbar Spine Decompression L4/5 L5/S1 50096 22309 M48.062(Not Applicable) - Evaristo Perdomo DO
[2021-05-29] MEDS: clindamycin 900 MG/50 ML PREMIX 100 MG IV (08:43)
--- NOTE | 2021-05-29 10:11 | P.OP_ITS ---
Operative Report Date of procedure: May 29, 2021 Pre-op Diagnosis: Lumbar stenosis with neurogenic claudication Post-op diagnosis: same Procedure Done: 1. bilateral L4/5 laminectomy with partail facetectomies 2. bilateral L5/S1 laminectomy with partial facetectomies Surgeon: Evaristo Perdomo Anesthesia: General Estimated blood loss (mL): 5 Condition: stable Disposition: PACU Procedure: 1. bilateral L4/5 laminectomy with partail facetectomies 2. bilateral L5/S1 laminectomy with partial facetectomies Patient is brought to the operative suite. After undergoing anesthesia they are placed in the prone position. All areas of impingement are well padded. Patient is then prepped and draped in the normal sterile fashion. A skin incision is made over the L4/5 level. This is confirmed under c-arm guidance. A series of dilators are passed and the tubular retractor is docked on the L4 lamina. A bovie is used to clear the soft tissue off the lamina and the L 4/5 facet joint. A high speed mychal is then used to perform the laminectomy and take down the medial aspect of the L 4/5 facet joint. A kerrison rongeure was then used to take down the remaining lamina and smooth the edged of the laminectomy up to the point where the ligamentum flavum attaches. Attention was then brought to the medial aspect of the facet joint. The remaining medial aspect of the superior and inferior aspect of the facet joint were taken down with the kerrison from the pedicle of L4 to L 5. The facet joint had significant hypertrophy. Attention was then brought to the Ligamentum Flavum. The ligament was taken down from the lamina of L4 to L5 and out medially to the remaining facet joint. The ligament was thick and calcified. The dura was then exposed. The dura was in good repair. The L4 nerve was then traced with a curette out the L4/5 foramen and found to be adequately decompressed. The L5 nerve was traced with a curette around the L5 pedicle. The lateral recess was opened with a kerrison helping to further decompress the L5 nerve. The tubular retractor was then tilted to the contralateral side. The bovie was used to take down the soft tissue on the spinous process. The high speed mychal was used to take down the spinous process and then the contralateral lamina of L4. The kerrison rongeur was used to take down the remaining lamina to the point where the ligamentum flavum attached and the ligamentum flavum was taken down from L4 to L5. The kerrison rongeur was then used to reach across and take down the medial aspect of the contralateral L4/5 facet joint.The currete was used to trace the contralateral L4 nerve out the L4/5 foramen to make sure it was decompressed adequatesly and the L5 was traced around the L5 pedicle. The lateral recess was opened further with the kerrison to ensure the L5 is adequately decompressed. Wound is then irrigated copiously with saline and surgiflo is used to stop any bleeding. The tubular retractor is removed and A skin incision is made over the L5/S1 level. This is confirmed under c-arm guidance. A series of dilators are passed and the tubular retractor is docked on the L5 lamina. A bovie is used to clear the soft tissue off the lamina and the L 5/S1 facet joint. A high speed mychal is then used to perform the laminectomy and take down the medial aspect of the L 5/S1 facet joint. A kerrison rongeure was then used to take down the remaining lamina and smooth the edged of the laminectomy up to the point where the ligamentum flavum attaches. Attention was then brought to the medial aspect of the facet joint. The remaining medial aspect of the superior and inferior aspect of the facet joint were taken down with the kerrison from the pedicle of L5 to S1. The facet joint had significant hypertrophy. Attention was then brought to the Ligamentum Flavum. The ligament was taken down from the lamina of L5 to S1 and out medially to the remaining facet joint. The ligament was thick and calcifed. The dura was then exposed. The dura was in good repair. The L5 nerve was then traced with a curette out the L5/S1 foramen and found to be adequately decompressed. The s1 nerve was traced with a curette around the S1 pedicle. The lateral recess was opened with a kerrison helping to further de compress the S1 nerve. The tubular retractor was then tilted to the contralateral side. The bovie was used to take down the soft tissue on the spinous process. The high speed mychal was used to take down the spinous process and then the contralateral lamina of L5. The kerrison rongeur was used to take down the remaining lamina to the point where the ligamentum flavum attached and the ligamentum flavum was taken down from L5 to s1. The kerrison rongeur was then used to reach across and take down the medial aspect of the contralateral L5/S1 facet joint.The currete was used to trace the contralateral L5 nerve out the L5/S1 foramen to make sure it was decompressed adequatesly and the S1 was traced around the S1 pedicle. The lateral recess was opened further with the kerrison to ensure the S1 is adequately decompressed. Wound is then irrigated copiously with saline and surgiflo is used to stop any bleeding. The tubular retractor is removed and the wound is closed with vicryl and monocryl suture. Glue is then used to protect the wound. A sterile dressing is then placed. Patient was then placed in the supine position and transferred to the PACU in stable condition.
[2021-05-29] MEDS: oxyCODONE-APAP 10-325 mg Tablet 1 TAB PO (11:48)
--- NOTE | 2021-05-29 14:02 | ANE.PACU2 ---
Inpatient post-anesthesia follow up: Airway intact: Yes Vital signs: Temperature 97.8 F Pulse Rate 78 Respiratory Rate 14 Blood Pressure 157/70 Pulse Oximetry 100 Oxygen Delivery Me thod Nasal Cannula Oxygen Flow Rate 3 Fraction of Inspir ed Oxygen Hydration adequate: Yes Nausea and vomiting: No Pain level: 2 Mental status: Baseline
== END 2021-05-29 12:01 | disposition home or self-care (01) ==
PROVIDERS: Anesthesiology; PCP Family Medicine; Visit Provider Orthopaedic Surgery
PROC: (CPT 63005; principal; 2021-05-29 08:25)
DX: M48.062 Spinal stenosis, lumbar region with neurogenic claudication (principal); I13.0 Hypertensive heart and chronic kidney disease with heart failure and stage 1 through stage 4 chronic kidney disease, or unspecified chronic kidney disease; N18.9 Chronic kidney disease, unspecified; I50.30 Unspecified diastolic (congestive) heart failure; E03.9 Hypothyroidism, unspecified; E11.9 Type 2 diabetes mellitus without complications; Z79.4 Long term (current) use of insulin; Z87.891 Personal history of nicotine dependence; Z88.5 Allergy status to narcotic agent; Z88.0 Allergy status to penicillin; Z88.2 Allergy status to sulfonamides; Z82.49 Family history of ischemic heart disease and other diseases of the circulatory system
CPT/HCPCS: 63047; 63048; 36416; 72020; 76000; 80048; 82962; 85025; 96365; J1100; J2405; J2704; J3010; J3490; J7030

== ENCOUNTER 2021-06-30 07:57 | Outpatient (CLI) | payer MEDICARE, MEDICAID, SELFPAY ==
--- NOTE | 2021-06-30 | CT_ITS ---
WS: [id number] Exam: CT abdomen wo con [id number] Date/Time of Exam: 06/30/2021 8:57 AM Reason For Exam: DILATED COMMON BILE DUCT DLP: 734.[address] scans at [facility] use at least one of these dose optimization techniques: automated e xposure control; mA and/or kV adjustment per patient size (includes targeted exams where dose is matc hed to clinical indication); or iterative reconstruction. Compared to prior study 06/22/2020. There is cardiac enlargement. Lower lung zones are clear. Mild hepatic enlargement. The liver is oth erwise unremarkable. The gallbladder is surgically absent. There are several calcified granulomas in the spleen. The pancreas is unremarkable. There is generalized wall thickening of the stomach. The ab dominal aorta is normal in caliber. Bilateral renal cysts are noted. Extensive calcification at the o rigin of the left renal artery. Unremarkable adrenal glands. Mild retroperitoneal lymphadenopathy. Th e largest node measures slightly over 1 cm greatest short axis dimension. There is also mildly enlarg ed mesenteric lymph node measuring 12 mm at greatest short axis dimension along the lesser curvature of the gastric fundus. This is new. Small bowel loops are normal in caliber. Extensive atheroscleroti c plaquing of the splenic artery. No significant large bowel abnormality noted. No destructive bone l esions are seen. Tiny fat filled periumbilical hernia. CT/CT abdomen wo con [id number] IMPRESSION: 1. Marked wall thickening of the stomach probably represents gastritis however a gastric mass might have similar appearance. Endoscopic evaluation might be co nsidered for more detailed workup. 2. Mild retroperitoneal lymphadenopathy. There is also a 12 mm short axis mesen teric lymph node along the lesser curvature the stomach. This is a new finding. 3. Bilateral renal cysts are noted. 4. Extensive the atherosclerotic plaquing of the abdominal aorta and several ma grant branches of the aorta.
[2021-06-30] MEDS: barium sulfate 450 mL Oral Susp PO (16:15)
== END 2021-06-30 07:58 | disposition home or self-care (01) ==
PROVIDERS: PCP Family Medicine; Visit Provider Internal Medicine
DX: R94.5 Abnormal results of liver function studies (principal); R10.11 Right upper quadrant pain; K83.8 Other specified diseases of biliary tract; K86.89 Other specified diseases of pancreas; R59.0 Localized enlarged lymph nodes; Q61.02 Congenital multiple renal cysts; I70.0 Atherosclerosis of aorta
CPT/HCPCS: 74150

== ENCOUNTER → 2021-07-08 15:25 | Outpatient (BNVA) | payer MEDICARE, MEDICAID, SELFPAY | PROVIDERS: PCP Family Medicine; Visit Provider Internal Medicine Critical Care Medicine | DX: J44.9 Chronic obstructive pulmonary disease, unspecified (principal) | CPT/HCPCS: 87635 ==

== ENCOUNTER 2021-07-14 12:21 | Outpatient (CLI) | payer MEDICARE, MEDICAID, SELFPAY ==
--- NOTE | 2021-07-14 13:31 | PFTS_ITS ---
Date of Study:07/14/21 Date of Dictation: 07/16/2021 MECHANICS: Postbronchodilator forced vital capacity (FVC) is reduced. Postbronchodilator forced expiratory volume in one second (FEV1) is moderately reduced. 60% FEV1/FVC is normal. There is no significant response to bronchodilators. FLOW VOLUME LOOP: Normal LUNG VOLUMES: Total lung capacity (TLC) is mildly reduced. Residual volume (RV) is normal. DIFFUSING CAPACITY FOR CARBON MONOXIDE: Mildly reduced 76%. . INTERPRETATION: The spirometry shows moderate restriction.lung volumes are mildly reduced. There is mild gas transfer defect. Correlate clinically. MTDD
== END 2021-07-14 12:22 | disposition home or self-care (01) ==
PROVIDERS: PCP Family Medicine; Visit Provider Internal Medicine Critical Care Medicine
DX: J44.9 Chronic obstructive pulmonary disease, unspecified (principal)
CPT/HCPCS: 94060; 94726; 94729; J7611

== ENCOUNTER → 2021-11-25 09:02 | Outpatient (BNVA) | payer MEDICARE, MEDICAID, SELFPAY | PROVIDERS: PCP Family Medicine; Visit Provider Internal Medicine Critical Care Medicine | DX: J96.11 Chronic respiratory failure with hypoxia (principal); J96.12 Chronic respiratory failure with hypercapnia; G47.33 Obstructive sleep apnea (adult) (pediatric); J98.4 Other disorders of lung; K21.9 Gastro-esophageal reflux disease without esophagitis; I10 Essential (primary) hypertension; Z87.891 Personal history of nicotine dependence; E03.9 Hypothyroidism, unspecified | CPT/HCPCS: 71046; 99214 ==

== ENCOUNTER 2021-12-22 09:38 | Outpatient (CLI) | payer MEDICARE, MEDICAID, SELFPAY ==
--- NOTE | 2021-12-22 | MM_ITS ---
WS: [id number] DIAGNOSTIC LEFT DIGITAL BREAST TOMOSYNTHESIS MAMMOGRAPHY WITH CAD. HISTORY: HX OF BR CA COMPARISON: 05/21/2020 and 05/17/2019 Technique: CC, MLO and ML views. Breast composition: The breasts are heterogeneously dense, which may obscure small masses. Rodlike c alcifications throughout the LEFT breast are stable since the prior study. No suspicious grouping or cluster of calcifications. MM/[place] [id number] IMPRESSION: BI-RADS: 2-Benign FOLLOW UP: 1 Year Follow-up
== END 2021-12-22 09:39 | disposition home or self-care (01) ==
LOC: RAD 09:39
PROVIDERS: PCP Family Medicine; Visit Provider Family Medicine
DX: Z85.3 Personal history of malignant neoplasm of breast (principal)
CPT/HCPCS: 77061

== ENCOUNTER 2021-12-24 14:13 | Outpatient (CLI) | payer MEDICARE, MEDICAID, SELFPAY ==
--- NOTE | 2021-12-24 15:30 | CT_ITS ---
WS: [id number] CT CHEST WITHOUT INTRAVENOUS CONTRAST HISTORY: Right upper lung zone lung nodule detected on chest x-ray TECHNIQUE: Contiguous 5 mm axial imaging performed on the thorax. Coronal and sagittal reformats are submitted. All CT scans at [facility] use at least one of these dose optimization techniques: automated exposure control; mA and/or kV adjustment per patient size (includes targeted exams where dose is matched to clinical indication); or iterative reconstruction. CONTRAST: None DLP: 589.80 mGy.cm COMPARISON: 12/07/2016 and chest radiograph 11/25/2021 Lungs and central airway: Previously described opacification in the RIGHT upper lobe seen on the radi ograph is much less apparent on CT. Suspect this is a resolving infiltrate. Mild residual groundglass opacification with a maximum diameter 16 mm now present. Additional linear areas of atelectasis at t he lung bases, lingula and along the RIGHT minor fissure. Noncalcified nodule at the LEFT lung base m easures 3 mm and stable since 2017. There is an additional nodule measuring 5 mm in the lingula which was not present on the prior study. Pleura: Normal. No pleural effusion. Heart and pericardium: Marked enlargement of the heart. Heavy mitral annular calcification. Defibrill ator wire in the RIGHT heart. Mediastinum and danay: No significantly enlarged lymph nodes are identified. There is mild. Esophageal wall thickening. Throughout the esophagus there is debris within the lumen. Vessels: Marked atherosclerosis aorta. Pulmonary hypertension. Coronary artery atherosclerosis. Chest wall and lower neck: No soft tissue masses. Upper abdomen: Large cyst upper pole LEFT kidney measures 3.9 x 4.1 cm. No additional evaluation of t he LEFT kidney can be performed without IV contrast. Prior cholecystectomy heavy calcification in aor ta and splenic artery and mesenteric arteries. Hyperplasia or adrenal glands. Osseous structures: Increase in thoracic kyphosis. Disc spaces are narrowed. CT/CT chest wo con [id number] IMPRESSION: 1. Near complete resolution of the recently described RIGHT upper lobe opacifi cation. Suspect resolving pneumonia. Minimal groundglass attenuation remains. R ecommend follow-up CT in 3 months to confirm complete resolution. 2. 5 mm ovoid nodule in the lingula needs further evaluation which can be foll owed up in 3 months also. 3. Diffuse debris within the esophagus is probably due to reflux or incomplete clearing. 4. Heavy mitral annular calcification. 5. No adenopathy. 6. Extensive atherosclerosis aorta, mesenteric arteries and splenic artery. 7. Chronic emphysema.
== END 2021-12-24 14:14 | disposition home or self-care (01) ==
LOC: RAD 14:17
PROVIDERS: PCP Family Medicine; Visit Provider Internal Medicine Critical Care Medicine
DX: I70.0 Atherosclerosis of aorta (principal); J43.9 Emphysema, unspecified; R91.1 Solitary pulmonary nodule
CPT/HCPCS: 71250

== ENCOUNTER → 2022-01-14 14:09 | Outpatient (BNVA) | payer MEDICARE, MEDICAID, SELFPAY | PROVIDERS: PCP Family Medicine; Visit Provider Nurse Practitioner Family | DX: I13.0 Hypertensive heart and chronic kidney disease with heart failure and stage 1 through stage 4 chronic kidney disease, or unspecified chronic kidney disease (principal); E11.22 Type 2 diabetes mellitus with diabetic chronic kidney disease; N18.9 Chronic kidney disease, unspecified; I50.32 Chronic diastolic (congestive) heart failure; Z87.891 Personal history of nicotine dependence; Z79.4 Long term (current) use of insulin; I48.0 Paroxysmal atrial fibrillation; Z79.01 Long term (current) use of anticoagulants | CPT/HCPCS: 99214 ==

== ENCOUNTER 2022-07-15 13:55 | Outpatient (CLI) | payer MEDICARE, MEDICAID, SELFPAY ==
--- NOTE | 2022-07-15 14:30 | CTR_ITS ---
PROCEDURE INFORMATION: Exam: CT Chest Without Contrast; Diagnostic Exam date and time: 07/15/2022 2:26 PM Age: 81 years old Clinical indication: Condition or disease; Lung condition and disease; Pulmonary nodule, solitary; Additional info: New lung nodule in L lung TECHNIQUE: Imaging protocol: Diagnostic computed tomography of the chest without contrast. Radiation optimization: All CT scans at this facility use at least one of these dose optimization techniques: automated exposure control; mA and/or kV adjustment per patient size (includes targeted exams where dose is matched to clinical indication); or iterative reconstruction. COMPARISON: CT chest con [id number] 12/24/2021 2:34 PM, CTA chest 12/07/2016 RADIATION DOSE METRICS: Total DLP (mGy-cm): 266.92 FINDINGS: Lungs: 6 mm ovoid nodule at the lingula is unchanged from prior study when measured in a similar fashion. Calcified granulomas again noted in the right middle lobe and left lung base. Scattered curvilinear areas of scarring at the right lung apex, right middle lobe, and lung bases. Similar appearance of a small focal ground-glass opacity at the right lung apex. Pleural spaces: No pneumothorax. Small volume right pleural effusion. Heart: Similar cardiomegaly. Mitral valvular calcifications again noted. Coronary artery calcifications noted. No pericardial effusion. Lymph nodes: Similar appearance of mildly prominent mediastinal lymph nodes which retain their normal morphology, likely reactive. Vasculature: No aortic aneurysm. Bones/joints: No acute fracture. Soft tissues: Pacer device noted in the left chest wall. CT/CT chest con [id number] IMPRESSION: 1. 6 mm nodule at the lingula is unchanged from prior study. 2. Similar appearance of a focal ground-glass opacity noted in the right lung apex. This was seen dating back to 12/07/2016 study and is not significantly changed. 3. Small volume right pleural effusion.
== END 2022-07-15 13:56 | disposition home or self-care (01) ==
LOC: RAD 13:56
PROVIDERS: PCP Family Medicine; Visit Provider Internal Medicine Critical Care Medicine
DX: R91.1 Solitary pulmonary nodule (principal); J90 Pleural effusion, not elsewhere classified
CPT/HCPCS: 71250

== ENCOUNTER → 2022-08-17 13:32 | Outpatient (BNVA) | payer MEDICARE, MEDICAID, SELFPAY | PROVIDERS: PCP Family Medicine; Visit Provider Internal Medicine Pulmonary Disease | DX: J44.9 Chronic obstructive pulmonary disease, unspecified (principal); J98.4 Other disorders of lung; J96.11 Chronic respiratory failure with hypoxia; J96.12 Chronic respiratory failure with hypercapnia; G47.33 Obstructive sleep apnea (adult) (pediatric); Z87.891 Personal history of nicotine dependence; Z99.81 Dependence on supplemental oxygen | CPT/HCPCS: 99214 ==

== ENCOUNTER → 2022-08-23 14:22 | Outpatient (BNVA) | payer MEDICARE, MEDICAID, SELFPAY | PROVIDERS: PCP Family Medicine; Referring Provider Family Medicine; Visit Provider Specialist | DX: S82.831A Other fracture of upper and lower end of right fibula, initial encounter for closed fracture (principal); W00.0XXA Fall on same level due to ice and snow, initial encounter | CPT/HCPCS: 99205 ==

== ENCOUNTER 2022-08-27 11:26 | Day surgery (SDC) | payer MEDICARE, MEDICAID, SELFPAY ==
[2022-08-26 09:07] VITALS: BMI 22.3
--- NOTE | 2022-08-26 09:27 | ECG_ITS ---
[facility] Test Date: 2022-08-26 Pat Name: Cathryn Ramsey Department: Room: Gender: Female [employer]: : 1940 Requested By: Fabian Cardona Order Number: [id number] Rodolfo MD: Vanessa Gregorio M.D. Measurements Intervals [place] Rate: 74 P: 95 GA: 211 QRS: 71 QRSD: 130 T: 8 QT: 419 QTc: 466 Interpretive Statements SINUS RHYTHM WITH SINUS ARRHYTHMIA WITH FIRST DEGREE AV BLOCK RIGHT BUNDLE BRANCH BLOCK [120+ ms QRS DURATION, UPRIGHT V1, 40+ ms S IN I/aVL/V4/V5/V6] Compared to ECG 05/22/2021 11:27:12 First degree AV block now present Electronically Signed On 08-26-2022 20:10:05 PATIENT INTAKE COORDINATOR by Vanessa Gregorio M.D. [email or web address]
[2022-08-26 09:38] LABS: Basophils % 0.4 %; Eosinophils # 0.1 10^3/uL (0.0-0.8); Eosinophils % 1.3 %; Hematocrit 31.8 % (37.0-47.0); Hemoglobin 9.3 g/dL (11.5-15.3); Lymphocytes # 1.4 10^3/uL (0.8-4.8); Lymphocytes % 18.3 %; Mean Corpuscular HGB Conc 29.2 g/dL (30.0-36.0); Mean Corpuscular Hemoglobin 28.4 pg (28.0-34.0); Mean Corpuscular Volume 97.2 fl (81-99); Mean Platelet Volume 10.8 fL (7.4-10.4); Monocytes # 0.5 10^3/uL (0.2-0.9); Neutrophils # 5.54 10^3/uL (1.8-7.7); Neutrophils % 73.5 %; Nucleated Red Blood Cells % 0 %; Platelet Count 228 10^3/cmm (130-400); Red Blood Count 3.27 10^6/uL (4.1-5.3); White Blood Count 7.5 10^3/uL (4.0-10.0)
--- NOTE | 2022-08-26 09:41 | P.ANESASSM_ITS ---
Pre-Anesthetic Assessment Height/Weight: Height 1.63 m Weight 58.967 kg Preop Diagnosis: Lumbar stenosis with neurogenic claudication Operation Date: 08/27/22 14:30 Proposed Procedures p RIGHT OPEN REDUCTION INTERNAL FIXATION DISTAL FIBULA 83392,S82.446X(Right) - Valentina Gallardo MD Familial anesthetic complications: none Was Beta Nunu taken within 24 hours: Yes Was Clonidine taken within 24 hours: N/A Social No alcohol and No tobacco (h/o smoking) Exam alert, oriented x 3 and regular rate & rhythm Airway Submandibular: within normal limits Cervical ROM: within normal limits Mallampati: Class II Dentition: false Pulmonary Chronic Obstructive Pulmonary Disease Home O2 3L CV/HEM Arrythmia, Deep Vein Thrombosis (PE) and Hypertension Anticoagulation (stopped Tuesday), pacemaker GI Gastroesophageal Reflux Disease Metabolic Thyroid Disease Musc/skel Lower Back Pain and Osteoarthritis/DJD Anesthetic Plan ASA status: 3 Anesthesia: Regional (specify below) (SAB) Medications/Allergies Home Medications Medication Instructions Recorded Confirmed Last Taken Type allopurinol 300 mg tablet 300 mg PO BID 07/31/19 08/26/22 08/26/22 History bimatoprost 0.01 % eye drops 1 drp ophthalmic (eye) BEDTIME 07/31/19 08/26/22 08/25/22 History (Mario Alberto) carbidopa 25 mg-levodopa 100 mg 2 tab PO BEDTIME 07/31/19 08/26/22 08/25/22 History tablet clonazepam 1 mg tablet 1 mg PO BEDTIME 07/31/19 08/26/22 08/25/22 History cyanocobalamin (vitamin B-12) 1,000 mcg IM Q30D 07/31/19 08/26/22 08/20/22 History 1,000 mcg/mL injection solution lactulose 10 gram/15 mL oral 15 ml PO BID PRN Constipation 07/31/19 08/26/22 08/26/22 History solution oxybutynin chloride 5 mg tablet 5 mg PO TID 07/31/19 08/26/22 08/26/22 History oxycodone-acetaminophen 10 mg-325 1 tab PO Q8H PRN Pain, Mild 07/31/19 08/26/22 08/25/22 History mg tablet pramipexole 0.5 mg tablet 1 mg PO BEDTIME 01/08/26/22 08/25/22 History pravastatin 40 mg tablet 40 mg PO DAILY 07/31/19 08/26/22 08/26/22 History sennosides 8.6 mg-docusate sodium 1 tab-cap PO BID PRN Constipation 07/31/19 08/26/22 08/26/22 History 50 mg tablet levothyroxine 112 mcg capsule 112 mcg PO DAILY #30 caps 08/06/19 08/26/22 08/26/22 Rx nitroglycerin 0.4 mg sublingual 0.4 mg sublingual Q5M PRN chest 12/10/19 08/26/22 07/06/20 20:00 Rx tablet pain 30 days #30 tabs insulin glargine 100 unit/mL (3 34 unit SUBCUT BEDTIME 12/15/19 08/26/22 05/28/21 History mL) subcutaneous pen (Lantus Solostar U-100 Insulin) magnesium hydroxide 400 mg/5 mL 30 ml PO DAILY PRN Constipation 12/15/19 08/26/22 07/05/20 09:00 History oral suspension (Milk of Magnesia) omeprazole 40 mg capsule,delayed 40 mg PO DAILY 12/15/19 08/26/22 08/26/22 History release sucralfate 100 mg/mL oral 10 ml PO QID PRN Heartburn 12/15/19 08/26/22 05/28/21 History suspension ascorbic acid (vitamin C) 500 mg 500 mg PO DAILY 06/22/20 08/26/22 08/26/22 History tablet (Vitamin C) calcium carbonate 600 mg-vitamin 1 tab PO DAILY 06/22/20 08/26/22 08/26/22 History D3 5 mcg (200 unit) tablet (Calcium 600 + D(3)) coQ10 (ubiquinol) 100 mg capsule 100 mg PO BEDTIME 06/22/20 08/26/22 08/25/22 History magnesium 250 mg tablet 250 mg PO DAILY 06/22/20 08/26/22 08/26/22 History potassium chloride 10 mEq 20 meq PO DAILY 07/15/20 08/26/22 08/26/22 History tablet,extended release (Klor-Con) fluticasone propionate 50 2 spray intranasal QAM 04/19/21 02/16/23 02/15/23 History mcg/actuation nasal spray,suspension (Flonase Allergy Relief) propafenone 150 mg tablet 150 mg PO Q8H #90 tabs 01/14/21 08/26/22 08/26/22 Rx sertraline 50 mg tablet 50 mg PO DAILY 07/02/21 08/26/22 08/25/22 History trazodone 50 mg tablet 50 mg PO DAILY 07/02/21 08/26/22 08/25/22 History post mastectomy Bras #4 ea 01/14/22 08/23/22 Unknown Rx apixaban 2.5 mg tablet 2.5 mg PO BID #90 tabs 03/16/22 08/26/22 08/23/22 Rx budesonide 0.25 mg/2 mL suspension 0.25 mg (2 mL) inhalation BID PRN 05/17/22 08/26/22 Unknown Rx for nebulization (Pulmicort) Shortness Of Breath #120 mL formoterol fumarate 20 mcg/2 mL 2 ml inhalation BID PRN Shortness 05/17/22 08/26/22 Unknown Rx solution for nebulization Of Breath #120 mL (Perforomist) revefenacin 175 mcg/3 mL solution 175 mcg (3 mL) inhalation DAILY 05/17/22 08/26/22 Unknown Rx for nebulization #90 mL metoprolol tartrate 25 mg tablet 25 mg PO BID #180 tabs 05/19/22 08/26/22 08/26/22 Rx isosorbide mononitrate 60 mg 60 mg PO DAILY #90 tabs 07/20/22 08/26/22 08/26/22 Rx tablet,extended release 24 hr roflumilast 250 mcg tablet 250 mcg PO DAILY #30 tabs 08/17/22 08/26/22 08/26/22 Rx (Daliresp) furosemide 20 mg tablet 20 mg PO DAILY 08/26/22 08/26/22 08/26/22 History zinc 10 mg tablet 10 mg PO DAILY 08/26/22 08/26/22 08/25/22 History Allergies Allergy/AdvReac Type Severity Reaction Status Date / Time codeine Allergy patient Verified 08/23/22 16:50 doesn't recall flecainide Allergy severe Verified 08/23/22 16:50 vomiting Iodinated Contrast Media Allergy renal Verified 08/23/22 16:50 disease naproxen Allergy renal Verified 08/23/22 16:50 disease Penicillins Allergy hives Verified 08/23/22 16:50 shellfish derived Allergy unknown Verified 08/23/22 16:50 Sulfa (Sulfonamide Allergy itching Verified 08/23/22 16:50 Antibiotics) tramadol AdvReac makes me Verified 08/23/22 16:50 crazy garlic Allergy unknown Uncoded 08/23/22 16:50 REPLACED BY [facility] Anesthesia Medical History Anemia -on iron supplementation Atypical chest pain Cardiac [place] [address] [place]. She had no significant coronary artery disease at that time. Bilateral renal cysts On multiple imaging modalities all appear simple. No further work-up recommended December 2020 Bradycardia Chest pain Chronic anticoagulation Chronic back pain Chronic kidney disease -baseline Cr appears to be around 2-2.3 - Chronic kidney disease Chronic respiratory failure with hypoxia and hypercapnia COPD (chronic obstructive pulmonary disease) Uses 3 L [id number] and BiPAP at night COVID-19 Diastolic heart failure Diastolic heart failure Elevated troponin Former smoker GERD (gastroesophageal reflux disease) Gout History of pulmonary embolism -is on AC with Eliquis Hypertension Hypothyroidism Intermittent atrial fibrillation Normal coronary angiogram Cardiac angiogram done in September 2015 Osteoarthritis Pacemaker Paroxysmal A-fib Right bundle branch block Supraventricular tachycardia Symptomatic bradycardia Syncope Type 2 diabetes mellitus UTI (urinary tract infection) - Surgical History H/O colonoscopy 2019 H/O esophagogastroduodenoscopy (~04/2020) 2020 H/O hernia repair H/O left knee surgery H/O right mastectomy History of cholecystectomy History of tonsillectomy Tubal ligation status Family History Father CAD (coronary artery disease) Family history of premature coronary artery disease Hypertension Mother Cancer Chronic kidney disease (CKD) Hypertension Sister Hyperlipidemia Hypertension Daughter No problems noted. Other Diabetes Social History Smoking and tobacco status: former smoker Quit status (tobacco): has quit using tobacco Year quit tobacco: 1971 - 1PPD x 25 Years Alcohol intake: never Caregiver/support person: Yes Lives independently: Yes Household members: family Housing: House Marital status: / Current occupational status: retired History of recent travel: No Data Anesthesia 08/26/22 09:24 08/26/22 09:24 Short CBC 08/26/22 Range/Units 09:24 WBC 7.5 (4.0-10.0) 10^3/uL Hgb 9.3 L (11.5-15.3) g/dL Hct 31.8 L (37.0-47.0) % MCV 97.2 (81-99) fl Plt Count 228 (130-400) 10^3/cmm Neut % (Auto) 73.5 % Neut # (Auto) 5.54 (1.8-7.7) 10^3/uL Cardiac Studies: Echocardiogram Ultrasound 07/07/20 Cardiac Event Monitor 07/17/20 Holter Monitor 01/24/20
[2022-08-26 10:06] LABS: Anion Gap 15.9 (5-19); Blood Urea Nitrogen 27 mg/dL (8-23); Calcium 9.2 mg/dL (8.5-10.5); Carbon Dioxide 26 mmol/L (22-29); Chloride 101 mmol/L (98-107); Glucose 239 mg/dL (65-115); Osmolality Calculated 301 mOsm/kg (285-295); Potassium 3.9 mmol/L (3.5-5.1); Sodium 139 mmol/L (136-145)
[2022-08-27] VITALS (8 sets, daily range): BP systolic 119–134; BP diastolic 52–76; PULSE 11–71; RESP 13–18; TEMP 36.1–36.3; O2SAT 93–99
[2022-08-27] MEDS: acetaminophen 1,000 MG/100 ML PIGGYBACK 400 MG IV (11:55)
[2022-08-27] MEDS: sodium chloride 0.9% 1,000 ML 30 ML IV (11:56)
[2022-08-27] MEDS: vancomycin 1,000 MG in sodium chloride 0.9% 250 ML 250 MG IV (12:20)
[2022-08-27 12:25] LABS: Glucose Point of Care 117 mg/dL (70-110)
[2022-08-27] MEDS: HYDROmorphone 1 mg/mL INJ 1 mL 0.5 MG IVP ×2 (12:40→15:31)
[2022-08-27] MEDS: scopolamine 1.5 Patch 1 PATCH TRANSDERMA (12:40)
--- NOTE | 2022-08-27 12:41 | P.HPUD_ITS ---
Surgery/Procedure H&P Update DATE OF PROCEDURE: August 27, 2022 DATE H&P PERFORMED: 08/23/22 H&P UPDATE INFORMATION: I have reviewed H&P completed within last 30 days, I have examined patient prior to procedure, No changes to prior documentation and H&P is in [facility] EMR on date indicated PREOP DIAGNOSIS: Right distal fibular fracture PLANNED PROCEDURE: Operation Date: 08/27/22 14:30 Proposed Procedures p ORIF Right distal Fibula(Right) - Valentina Gallardo MD Related Problem List Diagnoses (1) Fracture of distal end of right fibula: Qualifiers: Encounter type: initial encounter Fracture type: closed Fracture m orphology: other fracture Qualified Code(s): S82.831A - Other fracture of upper and lower end of right fibula, initial encounter for closed fracture
--- NOTE | 2022-08-27 13:25 | P.ANESUD_ITS ---
Pre-Anesthetic Update Pre-Anesthetic Assessment: Date of Surgery/Procedure: 08/27/22 Preop Jennifer gnosis: Right distal fibular fracture Proposed Procedure: Operation Date: 08/27/22 14:30 Proposed Procedures p ORIF Right distal Fibula(Right) - Valentina Gallardo MD Any changes to Pre-Anesthetic Assessment?: No Last Intake: Intake Last Liquid Date 08/26/22 Last Liquid Time 17:30 Last Solid Date 08/26/22 Last Solid Time 17:30 Labs Last 48hrs: Short CBC 08/26/22 Range/Units 09:24 WBC 7.5 (4.0-10.0) 10^3/ uL Hgb 9.3 L (11.5-15.3) g/dL Hct 31.8 L (37.0-47.0) % MCV 97.2 (81-99) fl Plt Count 228 (130-400) 10^3/c mm Neut % (Auto) 73.5 % Neut # (Auto) 5.54 (1.8-7.7) 10^3/u L BMP 08/26/22 09:24 Sodium 139 Potassium 3.9 Chloride 101 Carbon Dioxide 26 BUN 27 H Creatinine 0.9 Glucose 239 H Calcium 9.2 Vitals: Temperature 97.4 F L 08/27/22 11:30 Temperature Source Temporal Artery S can 08/27/22 11:30 Pulse Rate 69 08/27/22 11:30 Pulse Rhythm 08/27/22 11:49 Pulse Strength 3+ Normal 08/27/22 11:49 Respiratory Rate 18 08/27/22 11:30 Blood Pressure 134/52 08/27/22 11:30 Blood Pressure Cat n 79 08/27/22 11:30 Pulse Oximetry 97 08/27/22 11:30 Oxygen Delivery Me thod 08/27/22 11:49 Exam: Pre-Anes Outpt Exam: alert, oriented x 3, clear to auscultation bilaterally and regular rate & rhythm Cardiac Studies: Echocardiogram Ultrasound 07/07/20 Cardiac Event Monitor 07/17/20 Holter Monitor 01/24/20
[2022-08-27] MEDS: vancomycin 1,000 MG SDV 1000 MG IRRIGATION (13:50)
--- NOTE | 2022-08-27 14:31 | XR_ITS ---
WS: [id number] Right ankle, C-arm fluoroscopy, 08/27/2022 Clinical Data: OR PICS Comparison: Right ankle, 08/20/2022 Findings: There is a lateral plate on the distal right fibula attached with multiple screws reducing the fractu re. XR/XR ankle RT 1V [id number] Impression: Internal fixation of distal right fibular fracture.
--- NOTE | 2022-08-27 15:13 | ANE.PACU2 ---
Inpatient post-anesthesia follow up: Airway intact: Yes Vital signs: Temperature 97.0 F Pulse Rate 70 Respiratory Rate 17 Blood Pressure 119/67 Pulse Oximetry 95 Oxygen Delivery Me thod Room Air Oxygen Flow Rate Fraction of Inspir ed Oxygen Hydration adequate: Yes Nausea and vomiting: No Pain level: 1 Mental status: Baseline
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
[2022-08-27] MEDS: oxyCODONE-APAP 10-325 mg Tablet 1 TAB PO (16:00)
== END 2022-08-27 16:16 | disposition home or self-care (01) ==
PROVIDERS: Anesthesiology; PCP Family Medicine; Visit Provider Specialist
PROC: 0QSK04Z Reposition Left Fibula with Internal Fixation Device, Open Approach (ICD-10-PCS; CPT 27828; principal; 2022-08-27 14:10)
DX: S82.431A Displaced oblique fracture of shaft of right fibula, initial encounter for closed fracture (principal); X58.XXXA Exposure to other specified factors, initial encounter; J44.9 Chronic obstructive pulmonary disease, unspecified; Z86.718 Personal history of other venous thrombosis and embolism; Z79.01 Long term (current) use of anticoagulants; Z95.0 Presence of cardiac pacemaker; K21.9 Gastro-esophageal reflux disease without esophagitis; Z79.4 Long term (current) use of insulin; E11.22 Type 2 diabetes mellitus with diabetic chronic kidney disease; I13.0 Hypertensive heart and chronic kidney disease with heart failure and stage 1 through stage 4 chronic kidney disease, or unspecified chronic kidney disease; N18.9 Chronic kidney disease, unspecified; I50.30 Unspecified diastolic (congestive) heart failure; Z87.891 Personal history of nicotine dependence; Z99.81 Dependence on supplemental oxygen; Z86.16 Personal history of COVID-19; E03.9 Hypothyroidism, unspecified; Z86.711 Personal history of pulmonary embolism; M19.90 Unspecified osteoarthritis, unspecified site; I48.0 Paroxysmal atrial fibrillation; I45.10 Unspecified right bundle-branch block
CPT/HCPCS: 27792; 36415; 36416; 73600; 76000; 80048; 82962; 85025; 93005; C1713; J0131; J1100; J1170; J2250; J2405; J2704; J3370; J7030; J7050; P9045

== ENCOUNTER 2022-08-30 07:08 | Emergency (ER) | payer MEDICARE, MEDICAID, SELFPAY ==
[2022-08-30] VITALS (11 sets, daily range): BP systolic 125–149; BP diastolic 53–94; PULSE 73–79; RESP 18–26; TEMP 37; O2SAT 94–99; BMI 22.3
--- NOTE | 2022-08-30 07:10 | XR_ITS ---
WS: [id number] Exam: XR chest 1V portable [id number] Date/Time of Exam: 08/30/2022 7:30 AM Reason For Exam: dyspnea/cough Comparison 11/25/2021. The lungs are fully expanded and clear. Plaque atelectasis in the right base and lingula. Cardiomedia stinal silhouette is unremarkable for technique. Calcification of the mitral valve annulus. An ICD moore perimposes the upper left chest. Bony structures are intact. XR/XR chest 1V portable [id number] IMPRESSION: 1. No acute cardiopulmonary finding. Bilateral plaque atelectasis.
--- NOTE | 2022-08-30 07:10 | CT_ITS ---
WS: [id number] CT HEAD TECHNIQUE: Noncontrast CT of the head obtained from the skullbase to the vertex. CLINICAL INFORMATION: Altered mental status COMPARISON: None. DLP: 1097.[address] scans at [facility] use at least one of these dose optimization techniques: automated e xposure control; mA and/or kV adjustment per patient size (includes targeted exams where dose is matc hed to clinical indication); or iterative reconstruction. FINDINGS: No evidence of intracranial hemorrhage or mass effect. Ventricular system and basal cisterns are newman nt. Mild small vessel changes with moderate parenchymal volume loss. No extra-axial fluid collections . Vascular calcification. No evidence of mass or mass effect. RIGHT maxillary sinusitis. Mastoid air cells well aerated. CT/CT head wo con* [id number] IMPRESSION: 1. No evidence of intracranial hemorrhage or mass effect. 2. Mild small vessel changes. Moderate parenchymal volume loss. 3. Intracranial vascular calcification. 4. RIGHT maxillary sinusitis. 5. No acute intracranial findings.
--- NOTE | 2022-08-30 07:10 | ECG_ITS ---
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 Measurements Intervals Marcell Rate: 81 P: 30 HI: 244 QRS: 40 QRSD: 134 T: 7 QT: 382 QTc: 446 Interpretive Statements SINUS RHYTHM WITH FIRST DEGREE AV BLOCK RIGHT BUNDLE BRANCH BLOCK [120+ ms QRS DURATION, UPRIGHT V1, 40+ ms S IN I/aVL/V4/V5/V6] Compared to ECG 08/26/2022 09:27:59 Sinus arrhythmia no longer present Electronically Signed On 08-30-2022 19:06:05 DATABASE SOFTWARE TECHNICIAN by Vanessa Gregorio M.D. [email or web address]
--- NOTE | 2022-08-30 07:26 | W.ED.GENADLT ---
HPI - General Adult General: Chief complaint: General Medical Stated complaint: hallucinations/ dizziness Time Seen by Provider: 08/30/22 07:09 Source: patient Mode of arrival: ambulatory History of Present Illness: 82-year-old female presents to the emergency room with complaints of dizziness and a fall. She has a history of COPD. Her breathing has been for the most part unchanged she is chronically on 3 L/min. 3 days ago she had a right ankle surgery. She reports being started on an antibiotic although at the moment it is not on her medication list. She does have oxycodone on her medication list. She had her discharge paperwork from surgery there is no antibiotic on it no new prescriptions. This morning she tells me she fell he said she got dizzy lightheaded and fell she presents to the emergency room with leg in a splint wrapped in Tanner wrap which according to her discharge notes from surgery that was how they had discharged her home but she was supposed to be using a cam walker to protect it and be nonweightbearing she was walking this morning inside of the house when she fell she presents with a complaint of confusion she denies striking her head she is on apixaban. There is no obvious visible trauma. She denies any specific pain anywhere at this time. Onset (ago): minute(s) Severity: mild Relieving factors: none Exacerbating factors: none Associated symptoms: Reports confusion and malaise; Deny chest pain, cough, diaphoresis, decreased appetite, dyspnea, fevers/chills, headache(s), nausea, rash, palpitations, seizures, short of breath, syncope, vomiting or weakness Review of Systems Const: Reports: fatigue and malaise; Denies: fever(s), chills or diaphoresis ENMT: Denies: throat pain, ear or mastoid pain, nasal discharge or nasal congestion Card: Denies: chest pain, palpitations or syncope Resp: Reports: non-productive cough and wheezing; Denies: dyspnea or productive cough GI: Denies: abdominal pain, nausea or vomiting : Denies: flank pain, difficulty voiding, dysuria, urinary frequency or urinary urgency Skin/Breast: Denies: rash Neuro: Reports: confusion; Denies: headache(s) [facility] PFSH: Medical History Anemia -on iron supplementation Atypical chest pain Cardiac catheter[place] [address] [place]. She had no significant coronary artery disease at that time. Bilateral renal cysts On multiple imaging modalities all appear simple. No further work-up recommended December 2020 Bradycardia Chest pain Chronic anticoagulation Chronic back pain Chronic kidney disease -baseline Cr appears to be around 2-2.3 - Chronic kidney disease Chronic respiratory failure with hypoxia and hypercapnia COPD (chronic obstructive pulmonary disease) Uses 3 L [id number] and BiPAP at night COVID-19 Diastolic heart failure Diastolic heart failure Elevated troponin Former smoker GERD (gastroesophageal reflux disease) Gout History of pulmonary embolism -is on AC with Eliquis Hypertension Hypothyroidism Intermittent atrial fibrillation Normal coronary angiogram Cardiac angiogram done in September 2015 Osteoarthritis Pacemaker Paroxysmal A-fib Right bundle branch block Supraventricular tachycardia Symptomatic bradycardia Syncope Type 2 diabetes mellitus UTI (urinary tract infection) - Surgical History H/O colonoscopy 2019 H/O esophagogastroduodenoscopy (~04/2020) 2019 H/O hernia repair H/O left knee surgery H/O right mastectomy History of cholecystectomy History of tonsillectomy Tubal ligation status Family History Father CAD (coronary artery disease) Family history of premature coronary artery disease Hypertension Mother Cancer Chronic kidney disease (CKD) Hypertension Sister Hyperlipidemia Hypertension Daughter No problems noted. Other Diabetes Social History Smoking and tobacco status: former smoker Quit status (tobacco): has quit using tobacco Year quit tobacco: 1970 - 1PPD x 25 Years Alcohol intake: never Caregiver/support person: Yes Lives independently: Yes Household members: family Housing: House Marital status: / Current occupational status: retired Physical Exam Const: GENERAL APPEARANCE: cooperative and comfortable ORIENTATION/CONSCIOUSNESS: Yes awake HENMT: COMMON NORMALS: normocephalic, atraumatic and hearing grossly normal bilaterally HEAD & SCALP: normocephalic and atraumatic Resp: AUSCULTATION: rhonchi and wheezes Cardio: COMMON NORMALS: regular rate, regular rhythm and No murmurs present (Cardio) RATE: regular rate RHYTHM: regular rhythm GI: COMMON NORMALS: Soft to palpation and No hepatosplenomegaly present AUSCULTATION: Yes normoactive bowel sounds PALPATION: Yes Soft to palpation, No Tenderness to palpation present (GI), No Guarding due to palpation present (GI) and Yes No hepatosplenomegaly present Extremity: COMMON NORMALS: normal to inspection, capillary refill normal, no clubbing, cyanosis or edema, no calf tenderness and no pedal edema Skin: COMMON NORMALS: no rashes or lesions noted GENERAL SKIN EXAM: no rashes or lesions noted Course Vital Signs: Vital signs: Vital Signs Temperature 98.6 F 08/30/22 07:09 Pulse Rate 78 08/30/22 12:00 Respiratory Rate 25 H 08/30/22 12:00 Blood Pressure 147/65 08/30/22 12:00 Pulse Oximetry 95 08/30/22 12:00 Oxygen Delivery Me thod 08/30/22 07:48 Oxygen Flow Rate 2 08/30/22 07:48 MDM - General Adult Medical Decision Making Patient awake and alert. Does not agree hallucinations this time and dizziness is improved no significant findings I am concerned she has not been wearing her cam walker and she has been ambulating and fell no new fractures on her x-ray. No signs of infection hemoglobin is stable but needs to be monitored reviewed findings with her will discharge home. Medical Records I reviewed the patient's medical records. Lab Data I reviewed the patient's lab results. 08/30/22 07:25 08/30/22 07:25 Radiology Impressions Chest X-Ray 08/30/22 07:10 IMPRESSION: 1. No acute cardiopulmonary finding. Bilateral plaque atelectasis. Head CT 08/30/22 07:10 IMPRESSION: 1. No evidence of intracranial hemorrhage or mass effect. 2. Mild small vessel changes. Moderate parenchymal volume loss. 3. Intracranial vascular calcification. 4. RIGHT maxillary sinusitis. 5. No acute intracranial findings. Ankle X-Ray 08/30/22 11:07 IMPRESSION: 1. Fracture distal fibula with internal fixation remaining in the anatomic alignment for healing. Lateral soft tissue swelling. Laboratory Results WBC 6.9 10^3/uL (4.0-10.0) 08/30/22 07:25 RBC 3.14 10^6/uL (4.1-5.3) L 08/30/22 07:25 Hgb 9.0 g/dL (11.5-15.3) L 08/30/22 07:25 Hct 31.1 % (37.0-47.0) L 08/30/22 07:25 MCV 99.0 fl (81-99) 08/30/22 07:25 MCH 28.7 pg (28.0-34.0) 08/30/22 07:25 MCHC 28.9 g/dL (30.0-36.0) L 08/30/22 07:25 RDW 14.1 % (12.1-15.1) 08/30/22 07:25 Plt Count 204 10^3/cmm (130-400) 08/30/22 07:25 MPV 11.2 fL (7.4-10.4) H 08/30/22 07:25 Neut % (Auto) 78.3 % 08/30/22 07:25 Lymph % (Auto) 14.5 % 08/30/22 07:25 [place] % (Auto) 5.9 % 08/30/22 07:25 Eos % (Auto) 0.6 % 08/30/22 07:25 Baso % (Auto) 0.1 % 08/30/22 07:25 Neut # (Auto) 5.41 10^3/uL (1.8-7.7) 08/30/22 07:25 Lymph # (Auto) 1.0 10^3/uL (0.8-4.8) 08/30/22 07:25 [place] # (Auto) 0.4 10^3/uL (0.2-0.9) 08/30/22 07:25 Eos # (Auto) 0.0 10^3/uL (0.0-0.8) 08/30/22 07:25 Baso # (Auto) 0.0 10^3/uL (0.0-0.1) 08/30/22 07:25 Nucleated RBC % (auto) 0 % 08/30/22 07:25 Nucleated RBCs # 0.0 /100WBC 08/30/22 07:25 Specimen Type Arterial 08/30/22 07:22 Sample Site Radial, left 08/30/22 07:22 ABG pH 7.37 (7.35-7.45) 08/30/22 07:22 ABG pCO2 42.0 mmHg (35-45) 08/30/22 07:22 ABG pO2 111.0 mmHg (80.0-100.0) H 08/30/22 07:22 ABG HCO3 24.1 mmol/L (22-26) 08/30/22 07:22 ABG O2 Saturation 99.1 08/30/22 07:22 ABG Base Excess -1.1 mmol/L (-2.0-2.0) 08/30/22 07:22 Wil Test Pos 08/30/22 07:22 Hematocrit 21.3 % (37-47) L 08/30/22 07:22 Hgb O2 Saturation 96.4 % (95-100) 08/30/22 07:22 Carboxyhemoglobin 1.5 %THgb (0.4-20.1) 08/30/22 07:22 Methemoglobin 1.3 % (0.4-1.5) 08/30/22 07:22 Total Hemoglobin 7.0 g/dL (12-16) L 08/30/22 07:22 Sodium 142.0 mmol/L (131-143) 08/30/22 07:22 Potassium 4.0 mmol/L (3.5-5.0) 08/30/22 07:22 Glucose 133.0 mg/dL (70-115) H 08/30/22 07:22 Ionized Calcium 1.3 mmol/L (1.1-1.4) 08/30/22 07:22 O2 Delivery Device Nc 08/30/22 07:22 Bpm Solution Architect ID [email or web address] 08/30/22 07:22 Sodium 140 mmol/L (136-145) 08/30/22 07:25 Potassium 4.4 mmol/L (3.5-5.1) 08/30/22 07:25 Chloride 105 mmol/L (98-107) 08/30/22 07:25 Carbon Dioxide 23 mmol/L (22-29) 08/30/22 07:25 Anion Gap 16.4 (5-19) 08/30/22 07:25 BUN 26 mg/dL (8-23) H 08/30/22 07:25 Creatinine 1.0 mg/dL (0.5-0.9) H 08/30/22 07:25 GFR Calculation Not Reportable 08/30/22 07:25 Glucose 133 mg/dL (65-115) H 08/30/22 07:25 Calculated Osmolality 297 mOsm/kg (285-295) H 08/30/22 07:25 Calcium 9.4 mg/dL (8.5-10.5) 08/30/22 07:25 Total Bilirubin 0.2 mg/dL (0.15-1.2) 08/30/22 07:25 AST 18 U/L (0-32) 08/30/22 07:25 ALT < 5 U/L (0-33) 08/30/22 07:25 Alkaline Phosphatase 204 U/L (35-105) H 08/30/22 07:25 Troponin T Baseline 31 ng/L (0-10) H 08/30/22 07:25 Troponin T 120 Minute 29.20 ng/L (0-10) H 08/30/22 09:30 Delta Troponin T -1.80 ABS# (0-10) L 08/30/22 09:30 Total Protein 6.3 g/dL (6.6-8.7) L 08/30/22 07:25 Albumin 3.4 g/dL (3.5-5.2) L 08/30/22 07:25 Globulin 2.9 g/dL (1.3-4.6) 08/30/22 07:25 Urine Color Yellow (Yellow) 08/30/22 08:00 Urine Appearance Clear (CLEAR) 08/30/22 08:00 Urine pH 5 (5-7) 08/30/22 08:00 Ur Specific [place] 1.015 (1.005-1.030) 08/30/22 08:00 Urine Protein 2+ (Negative) H 08/30/22 08:00 Urine Glucose (UA) Norm (Normal) 08/30/22 08:00 Urine Ketones 1+ (Negative) H 08/30/22 08:00 Urine Blood Neg (Negative) 08/30/22 08:00 Urine Nitrate Negative (Negative) 08/30/22 08:00 Urine Bilirubin Neg (Negative) 08/30/22 08:00 Urine Urobilinogen Norm mg/dL (Negative) 08/30/22 08:00 Ur Leukocyte Esterase Negative (Negative) 08/30/22 08:00 Urine RBC 0-4 /hpf (0-2) H 08/30/22 08:00 Urine WBC None /hpf (0-5) 08/30/22 08:00 Ur Squamous Epith Cells 0-4 /hpf (0-5) H 08/30/22 08:00 Amorphous Sediment Trace /hpf 08/30/22 08:00 Urine Bacteria Trace /hpf (NONE) 08/30/22 08:00 Urine Mucus Trace /hpf 08/30/22 08:00 Discharge Plan Discharge Patient Disposition: Home Clinical Impression: Fall, Medication side effect, Fracture of distal end of fibula Condition: Stable Prescriptions: No Action nitroglycerin 0.4 mg tablet, sublingual 0.4 mg SUBLINGUAL Q5M PRN (Reason: chest pain) 30 Days Qty: 30 3RF Rx Instructions: until response; do not exceed 3 doses per episode trazodone 50 mg tablet 50 mg PO BEDTIME sertraline 50 mg tablet 50 mg PO DAILY roflumilast [Daliresp] 250 mcg tablet 250 mcg PO DAILY Qty: 30 3RF (DME) post mastectomy [place] See Rx Instructions .Route .MEDSUPPLY Qty: 4 0RF Rx Instructions: As directed apixaban 2.5 mg tablet 2.5 mg PO BID Qty: 90 3RF Hold Instructions: Resume on 09/10/20. May restart this medicine today after 4:00 PM revefenacin 175 mcg/3 mL solution for nebulization 175 mcg inhalation DAILY Qty: 90 11RF formoterol fumarate [Perforomist] 20 mcg/2 mL solution for nebulization 2 ml inhalation BID PRN (Reason: Shortness Of Breath) Qty: 120 11RF budesonide [Pulmicort] 0.25 mg/2 mL suspension for nebulization 0.25 mg inhalation BID PRN (Reason: Shortness Of Breath) Qty: 120 11RF metoprolol tartrate 25 mg tablet 25 mg PO BID Qty: 180 3RF isosorbide mononitrate 60 mg tablet extended release 24 hr 60 mg PO DAILY Qty: 90 3RF magnesium hydroxide [Milk of Magnesia] 400 mg/5 mL Suspension 30 ml PO DAILY PRN (Reason: Constipation) omeprazole 40 mg capsule,delayed release(DR/EC) 40 mg PO BID sucralfate 100 mg/mL suspension 10 ml PO QID PRN (Reason: Heartburn) fluticasone propionate [Flonase Allergy Relief] 50 mcg/actuation spray,suspension 2 spray INTRANASAL QAM calcium carbonate-vitamin D3 [Calcium 600 + D(3)] 600 mg(1,500mg) -200 unit Tablet 1 tab PO DAILY ascorbic acid (vitamin C) [Vitamin C] 500 mg Tablet 500 mg PO DAILY magnesium 250 mg Tablet 250 mg PO DAILY coQ10 (ubiquinol) 100 mg Capsule 100 mg PO BEDTIME sennosides-docusate sodium 8.6-50 mg Tablet 1 tab-cap PO BID PRN (Reason: Constipation) oxycodone-acetaminophen 10-325 mg tablet 1 tab PO Q8H PRN (Reason: Pain, Mild) carbidopa-levodopa 25-100 mg tablet 1 tab PO TID lactulose 10 gram/15 mL solution 15 ml PO BID PRN (Reason: Constipation) pravastatin 40 mg tablet 40 mg PO DAILY clonazepam 1 mg tablet 1 mg PO BEDTIME pramipexole 0.5 mg tablet 1 mg PO BEDTIME oxybutynin chloride 5 mg tablet 5 mg PO TID cyanocobalamin (vitamin B-12) 1,000 mcg/mL solution 1,000 mcg IM Q30D Rx Instructions: THE allopurinol 300 mg tablet 300 mg PO BID Lumigan 0.01 % drops 1 drp ophthalmic (eye) BEDTIME potassium chloride [Klor-Con 10] 10 mEq tablet extended release 20 meq PO DAILY furosemide 20 mg tablet 20 mg PO DAILY zinc 10 mg Tablet 10 mg PO DAILY levothyroxine 100 mcg tablet 100 mcg PO DAILY Breo Ellipta 100-25 mcg/dose blister with device 1 inh INHALATION BID Discharge Orders: Discharge ED (Routine); Ordered 08/30/22 Ordered By: Gabe Goldman Referrals: Terence Rogers [Primary Care Provider] - Discharge Diet: Usual diet Discharge Activity: Limit activity as instructed Patient Instructions: Opioid Safety, Pain Management Activity Restrictions/Additional Instructions: You were seen today after a fall. X-ray of your ankle did not show any acute abnormalities remained your labs did not show any acute findings. Recommend you continue your oxygen pain medications and postop instructions unchanged from when Dr. Thomas completed your surgery. Particularly no weightbearing on your right leg and wear the cam walker. Follow-up with her office as previously scheduled Coding Level of Care Code ED Artist Manager for Patrizia Corral
[2022-08-30 07:35] LABS: ABG PH Result 7.37 (7.35-7.45); Arterial Blood Gas Hematocrit 21.3 % (37-47); Base Excess ABG -1.1 mmol/L (-2.0-2.0); Blood Gas Allen Test Pos; Blood Gas Sample Site Radial, left; Blood Gas Sample Type Arterial; Carboxyhemoglobin 1.5 %THgb (0.4-20.1); HCO3 ABG 24.1 mmol/L (22-26); HGB O2 Sat 96.4 % (95-100); Ionized Calcium Level - ABG 1.3 mmol/L (1.1-1.4); Methemoglobin 1.3 % (0.4-1.5); Oxygen Device NC; Oxygen Saturation ABG 99.1
[2022-08-30 07:45] LABS: Basophils % 0.1 %; Eosinophils % 0.6 %; Hematocrit 31.1 % (37.0-47.0); Lymphocytes % 14.5 %; Mean Corpuscular HGB Conc 28.9 g/dL (30.0-36.0); Mean Corpuscular Hemoglobin 28.7 pg (28.0-34.0); Mean Platelet Volume 11.2 fL (7.4-10.4); Monocytes # 0.4 10^3/uL (0.2-0.9); Monocytes % 5.9 %; Neutrophils # 5.41 10^3/uL (1.8-7.7); Neutrophils % 78.3 %; Nucleated Red Blood Cells % 0 %; Platelet Count 204 10^3/cmm (130-400); Red Blood Count 3.14 10^6/uL (4.1-5.3); Red Cell Distribution Width 14.1 % (12.1-15.1); White Blood Count 6.9 10^3/uL (4.0-10.0)
[2022-08-30 07:57] LABS: Alanine Aminotransferase < 5 U/L (0-33); Albumin Level 3.4 g/dL (3.5-5.2); Alkaline Phosphatase 204 U/L (35-105); Aspartate Amino Transferase 18 U/L (0-32); Blood Urea Nitrogen 26 mg/dL (8-23); Calcium 9.4 mg/dL (8.5-10.5); Carbon Dioxide 23 mmol/L (22-29); Chloride 105 mmol/L (98-107); Globulin 2.9 g/dL (1.3-4.6); Glucose 133 mg/dL (65-115); Osmolality Calculated 297 mOsm/kg (285-295); Sodium 140 mmol/L (136-145); Total Bilirubin 0.2 mg/dL (0.15-1.2); Total Protein 6.3 g/dL (6.6-8.7)
[2022-08-30 08:00] LABS: Anion Gap 16.4 (5-19); Potassium 4.4 mmol/L (3.5-5.1)
[2022-08-30 08:13] LABS: Troponin(5th) Baseline 31 ng/L (0-10)
[2022-08-30 08:39] LABS: Bilirubin Urine Neg (Negative); Blood Urine Neg (Negative); Glucose Urine UA Norm (Normal); Ketones Urine 1+ (Negative); Leukocyte Esterase Urine Negative (Negative); Nitrate Urine Negative (Negative); Protein Urine 2+ (Negative); Specific Gravity, Urine 1.015 (1.005-1.030); Urine Appearance Clear (CLEAR); Urine Color Yellow (Yellow); Urobilinogen Urine Norm (Negative); pH Urine 5 (5-7)
[2022-08-30 08:40] LABS: Add Urine Culture? No; Add Urine Microscopic? YES; Amorphous Sediment Urine TRACE /hpf; Bacteria Urine TRACE /hpf; Mucus Urine TRACE /hpf; RBC Urine 0-4 /hpf (0-2); Squamous Epithelial Cell Urine 0-4 /hpf (0-5)
--- NOTE | 2022-08-30 09:09 | ECG_ITS ---
[facility] Test Date: 2022-08-30 Pat Name: Cathryn Ramsey Department: Room: Gender: Female [employer]: : 1940 Requested By: Gabe Rubin Order Number: [id number] Rodolfo MD: Vanessa Gregorio M.D. Measurements Intervals [place] Rate: 74 P: 58 MO: 269 QRS: 61 QRSD: 136 T: 6 QT: 403 QTc: 448 Interpretive Statements SINUS RHYTHM WITH FIRST DEGREE AV BLOCK RIGHT BUNDLE BRANCH BLOCK [120+ ms QRS DURATION, UPRIGHT V1, 40+ ms S IN I/aVL/V4/V5/V6] Compared to ECG 08/26/2022 09:27:59 Sinus arrhythmia no longer present Electronically Signed On 08-30-2022 19:16:38 COLLECTIVE BARGAINING SPECIALIST by Vanessa Gregorio M.D. [id number]
--- NOTE | 2022-08-30 11:07 | XR_ITS ---
WS: [id number] Exam: XR ankle RT min 3V* [id number] Date/Time of Exam: 08/30/2022 11:07 AM Reason For Exam: recetn surgery - post op fall Comparison 08/27/2022. Again noted is plate and screw fixation involving a fracture of the distal fibula in anatomic alignme nt. No positional change noted. No other fractures the ankle. The ankle mortise is unremarkable in ap pearance. Lateral soft tissue swelling. XR/XR ankle RT min 3V* [id number] IMPRESSION: 1. Fracture distal fibula with internal fixation remaining in the anatomic alig nment for healing. Lateral soft tissue swelling.
== END 2022-08-30 12:15 | disposition home or self-care (01) ==
PROVIDERS: Emergency Provider Family Medicine; PCP Family Medicine
DX: S82.831A Other fracture of upper and lower end of right fibula, initial encounter for closed fracture (principal); T50.905A Adverse effect of unspecified drugs, medicaments and biological substances, initial encounter; J32.0 Chronic maxillary sinusitis; Z87.891 Personal history of nicotine dependence; I13.0 Hypertensive heart and chronic kidney disease with heart failure and stage 1 through stage 4 chronic kidney disease, or unspecified chronic kidney disease; E11.22 Type 2 diabetes mellitus with diabetic chronic kidney disease; N18.9 Chronic kidney disease, unspecified; I50.30 Unspecified diastolic (congestive) heart failure; J44.9 Chronic obstructive pulmonary disease, unspecified; Z99.81 Dependence on supplemental oxygen; Z95.0 Presence of cardiac pacemaker; W18.39XA Other fall on same level, initial encounter
CPT/HCPCS: 36415; 36600; 51701; 70450; 71045; 73610; 80051; 80053; 81001; 82330; 82805; 84484; 85025; 87040; 93005; 99285

== ENCOUNTER → 2022-09-01 09:46 | Outpatient (BNVA) | payer MEDICARE, MEDICAID, SELFPAY | PROVIDERS: PCP Family Medicine; Visit Provider Internal Medicine Cardiovascular Disease | DX: I48.91 Unspecified atrial fibrillation (principal); Z95.0 Presence of cardiac pacemaker; R07.89 Other chest pain; R42 Dizziness and giddiness; I13.0 Hypertensive heart and chronic kidney disease with heart failure and stage 1 through stage 4 chronic kidney disease, or unspecified chronic kidney disease; N18.9 Chronic kidney disease, unspecified; I50.30 Unspecified diastolic (congestive) heart failure; Z87.891 Personal history of nicotine dependence | CPT/HCPCS: 99214 ==

== ENCOUNTER → 2022-09-09 08:45 | Outpatient (BNVA) | payer MEDICARE, MEDICAID, SELFPAY | PROVIDERS: PCP Family Medicine; Visit Provider Nurse Practitioner Family | DX: S82.431D Displaced oblique fracture of shaft of right fibula, subsequent encounter for closed fracture with routine healing (principal); X58.XXXD Exposure to other specified factors, subsequent encounter | CPT/HCPCS: 73610; 99024 ==

== ENCOUNTER → 2022-10-08 08:19 | Outpatient (BNVA) | payer MEDICARE, MEDICAID, SELFPAY | PROVIDERS: PCP Family Medicine; Visit Provider Nurse Practitioner Family | DX: S82.831A Other fracture of upper and lower end of right fibula, initial encounter for closed fracture (principal); X58.XXXA Exposure to other specified factors, initial encounter | CPT/HCPCS: 73610; 99213 ==

== ENCOUNTER 2022-11-09 17:27 | Inpatient (IN) | payer MEDICARE, MEDICAID, SELFPAY ==
[2022-11-09] VITALS (10 sets, daily range): BP systolic 127–146; BP diastolic 56–78; PULSE 74–92; RESP 16–18; TEMP 37–37.2; O2SAT 95–99; BMI 24.0
--- NOTE | 2022-11-09 17:35 | ECG_ITS ---
[facility] Test Date: 2022-11-09 Pat Name: Cathryn Ramsey Department: Room: Gender: Female Dials Supervisor: : 1940 Requested By: Gabe Rubin Order Number: [id number] Rodolfo MD: Vanessa Gregorio M.D. Measurements Intervals [place] Rate: 79 P: -11 MS: 239 QRS: -12 QRSD: 136 T: 54 QT: 412 QTc: 474 Interpretive Statements SINUS RHYTHM WITH FIRST DEGREE AV BLOCK RIGHT BUNDLE BRANCH BLOCK [120+ ms QRS DURATION, UPRIGHT V1, 40+ ms S IN I/aVL/V4/V5/V6] Compared to ECG 08/30/2022 09:09:23 No significant changes Electronically Signed On 11-10-2022 0:22:14 CDT by Vanessa Gregorio M.D. [email or web address]
--- NOTE | 2022-11-09 17:35 | XRR_ITS ---
PROCEDURE INFORMATION: Exam: XR Chest Exam date and time: 11/09/2022 6:02 PM Age: 82 years old Clinical indication: Shortness of breath; Additional info: Dyspnea/cough TECHNIQUE: Imaging protocol: Radiologic exam of the chest. Views: 1 view. COMPARISON: CR XR chest 1V portable [id number] 08/30/2022 7:46 AM FINDINGS: Tubes, catheters and devices: There is a single lead cardiac pacer via left subclavian approach. Findings are stable. Lungs: Fullness in the pulmonary vasculature suggesting volume overload in the lungs. There is linear scarring in the left mid lung. Pleural spaces: No pleural effusion. No pneumothorax. Heart/Mediastinum: Stable marked enlargement of the cardiac silhouette. Mediastinal contours are unremarkable. Bones/joints: Unremarkable for age. XR/XR chest 1V portable [id number] IMPRESSION: 1. Fullness in the pulmonary vasculature suggesting volume overload in the lungs. 2. Incidental/nonacute findings are listed in the report.
--- NOTE | 2022-11-09 17:50 | ED_ITS ---
HPI - SOB/Dyspnea General: Chief Complaint: Shortness of Breath/Dyspnea Stated Complaint: SOB Time Seen by Provider: 11/09/22 17:35 Source: patient and EMS Mode of arrival: EMS Limitations: no limitations History of Present Illness: HPI Narrative: 82-year-old female who states she has a history of respiratory issues she does use albuterol at home but does not believe she has COPD she is on 3 L at baseline does have restrictive lung disease she states she been on oxygen for over 20 years. States her last 4 days she has had increased cough with some yellow sputum with some slight increased shortness of breath she is 97% here on her 3 L. She denies any pain denies any fevers. Associated symptoms: Deny abdominal pain, chest pain, fever(s), nausea or vomiting Review of Systems Const: Denies: fever(s), chills or body aches Eyes: Denies: eye discomfort ENMT: Denies: throat pain or dental pain Card: Denies: chest pain Resp: Reports: dyspnea and productive cough GI: Denies: abdominal pain, nausea, vomiting or diarrhea : Denies: dysuria Musc: Denies: neck pain or back pain Skin/Breast: Denies: rash PFSH ED PFSH: Medical History Anemia -on iron supplementation Atypical chest pain Cardiac [place] [address] Monaco. She had no significant co ronary artery disease at that time. Bilateral renal cysts On multiple imaging modalities all appear simple. No further work-up recommended December 2020 Bradycardia Chest pain Chronic anticoagulation Chronic back pain Chronic kidney disease -baseline Cr appears to be around 2-2.3 - Chronic kidney disease Chronic respiratory failure with hypoxia and hypercapnia COPD (chronic obstructive pulmonary disease) Uses 3 L [id number] and BiPAP at night COVID-19 Diastolic heart failure Diastolic heart failure Elevated troponin Former smoker GERD (gastroesophageal reflux disease) Gout History of pulmonary embolism -is on AC with Eliquis Hypertension Hypothyroidism Intermittent atrial fibrillation Normal coronary angiogram Cardiac angiogram done in September 2015 Osteoarthritis Pacemaker Paroxysmal A-fib Right bundle branch block Supraventricular tachycardia Symptomatic bradycardia Syncope Type 2 diabetes mellitus UTI (urinary tract infection) - Surgical History H/O colonoscopy 2019 H/O esophagogastroduodenoscopy (~04/2020) 2019 H/O hernia repair H/O left knee surgery H/O right mastectomy History of cholecystectomy History of tonsillectomy Tubal ligation status Family History Father CAD (coronary artery disease) Family history of premature coronary artery disease Hypertension Mother Cancer Chronic kidney disease (CKD) Hypertension Sister Hyperlipidemia Hypertension Daughter No problems noted. Other Diabetes Social History Smoking and tobacco status: former smoker Quit status (tobacco): has quit using tobacco Year quit tobacco: 1970 - 1PPD x 25 Years Alcohol intake: never Substance/Drug Use: never Caregiver/support person: Yes Lives independently: Yes Household members: family Housing: House Marital status: / Current occupational status: retired Do you think of yourself as: Straight/Heterosexual Physical Exam Const: COMMON NORMALS: patient oriented x3 HENMT: COMMON NORMALS: normocephalic and atraumatic HEAD & SCALP: normocephalic and atraumatic Eye: COMMON NORMALS: conjunctivae normal CONJUNCTIVA: Yes conjunctivae normal Neck/C-Spine: COMMON NORMALS: full ROM and supple Chest: COMMONS NORMALS: normal inspection of the chest and normal palpation of entire chest wall Resp: COMMON NORMALS: normal respiratory effort, No retractions and No use of accessory muscles AUSCULTATION: rales Cardio: COMMON NORMALS: regular rate, regular rhythm and No murmurs present (Cardio) RATE: regular rate RHYTHM: regular rhythm GI: COMMON NORMALS: Normal to inspection, nondistended, normoactive bowel sounds present, Soft to palpation, non-tender and no masses PALPATION: Yes Soft to palpation Extremity: COMMON NORMALS: normal to inspection and full ROM Neuro: COMMON NORMALS: patient oriented x3, moves all extremities and no focal motor deficits Psych: COMMON NORMALS: mental status grossly normal, Normal thought process present and cooperative THOUGHT PROCESS: Normal thought process present Skin: COMMON NORMALS: no rashes or lesions noted and no wounds GENERAL SKIN EXAM: no rashes or lesions noted Course Vital Signs: Vital signs: Vital Signs Temperature 98.9 F 11/09/22 17:30 Pulse Rate 78 11/09/22 19:17 Respiratory Rate 16 11/09/22 19:17 Blood Pressure 138/57 11/09/22 19:17 Pulse Oximetry 98 11/09/22 19:17 Oxygen Delivery Me thod Room Air 11/09/22 18:56 Oxygen Flow Rate 3 11/09/22 18:00 MDM - SOB/Dyspnea Medical Decision Making Patient presents here with dyspnea along with cough productive of yellow sputum she does have an elevated white count likely pneumonia spoke to hospitalist will admit at this time. Differential Diagnosis Likely community acquired pneumonia; Unlikely acute exacerbation of chronic obstructive airways disease, congestive heart failure, asthma with exacerbation or pulmonary embolism Medical Records I reviewed the patient's medical records. Lab Data I reviewed the patient's lab results. 11/09/22 17:50 11/09/22 17:50 Labs/Radiology: Radiology Impressions Chest X-Ray 11/09/22 17:35 IMPRESSION: 1. Fullness in the pulmonary vasculature suggesting volume overload in the lungs. 2. Incidental/nonacute findings are listed in the report. Laboratory Results WBC 16.8 10^3/uL (4.0-10.0) H 11/09/22 17:50 RBC 3.31 10^6/uL (4.1-5.3) L 11/09/22 17:50 Hgb 9.6 g/dL (11.5-15.3) L 11/09/22 17:50 Hct 31.6 % (37.0-47.0) L 11/09/22 17:50 MCV 95.5 fl (81-99) 11/09/22 17:50 MCH 29.0 pg (28.0-34.0) 11/09/22 17:50 MCHC 30.4 g/dL (30.0-36.0) 11/09/22 17:50 RDW 15.4 % (12.1-15.1) H 11/09/22 17:50 Plt Count 132 10^3/cmm (130-400) 11/09/22 17:50 MPV 11.8 fL (7.4-10.4) H 11/09/22 17:50 Neut % (Auto) 89.1 % 11/09/22 17:50 Lymph % (Auto) 3.8 % 11/09/22 17:50 [place] % (Auto) 6.4 % 11/09/22 17:50 Eos % (Auto) 0.0 % 11/09/22 17:50 Baso % (Auto) 0.2 % 11/09/22 17:50 Neut # (Auto) 14.94 10^3/uL (1.8-7.7) H 11/09/22 17:50 Lymph # (Auto) 0.6 10^3/uL (0.8-4.8) L 11/09/22 17:50 [place] # (Auto) 1.1 10^3/uL (0.2-0.9) H 11/09/22 17:50 Eos # (Auto) 0.0 10^3/uL (0.0-0.8) 11/09/22 17:50 Baso # (Auto) 0.0 10^3/uL (0.0-0.1) 11/09/22 17:50 Nucleated RBC % (auto) 0 % 11/09/22 17:50 Nucleated RBCs # 0.0 /100WBC 11/09/22 17:50 Sodium 140 mmol/L (136-145) 11/09/22 17:50 Potassium 3.7 mmol/L (3.5-5.1) 11/09/22 17:50 Chloride 105 mmol/L (98-107) 11/09/22 17:50 Carbon Dioxide 22 mmol/L (22-29) 11/09/22 17:50 Anion Gap 16.7 (5-19) 11/09/22 17:50 BUN 27 mg/dL (8-23) H 11/09/22 17:50 Creatinine 0.9 mg/dL (0.5-0.9) 11/09/22 17:50 GFR Calculation Not Reportable 11/09/22 17:50 Glucose 178 mg/dL (65-115) H 11/09/22 17:50 Calculated Osmolality 300 mOsm/kg (285-295) H 11/09/22 17:50 Calcium 9.2 mg/dL (8.5-10.5) 11/09/22 17:50 Total Bilirubin 0.4 mg/dL (0.15-1.2) 11/09/22 17:50 AST 12 U/L (0-32) 11/09/22 17:50 ALT < 5 U/L (0-33) 11/09/22 17:50 Alkaline Phosphatase 121 U/L (35-105) H 11/09/22 17:50 Total Protein 6.2 g/dL (6.6-8.7) L 11/09/22 17:50 Albumin 4.0 g/dL (3.5-5.2) 11/09/22 17:50 Globulin 2.2 g/dL (1.3-4.6) 11/09/22 17:50 SARS-CoV-2 Ag (Rapid) negative (Negative) 11/09/22 17:50 Discharge Plan Discharge Patient Disposition: Admitted As Inpatient Clinical Impression: Community acquired pneumonia Condition: Stable Prescriptions: No Action nitroglycerin 0.4 mg tablet, sublingual 0.4 mg SUBLINGUAL Q5M PRN (Reason: chest pain) 30 Days Qty: 30 3RF Rx Instructions: until response; do not exceed 3 doses per episode trazodone 50 mg tablet 50 mg PO BEDTIME sertraline 50 mg tablet 50 mg PO DAILY roflumilast [Daliresp] 250 mcg tablet 250 mcg PO DAILY Qty: 30 3RF spironolactone 25 mg tablet 25 mg PO DAILY albuterol sulfate 90 mcg/actuation HFA aerosol inhaler 2 puff inhalation Q6H PRN (Reason: Shortness Of Breath) naloxone 4 mg/actuation spray,non-aerosol 4 mg intranasal Q3M PRN (Reason: overdose) Rx Instructions: spray 1 dose into ONE nostril; alternate nostrils w each dose until help arrives (DME) post mastectomy Bras See Rx Instructions .Route .MEDSUPPLY Qty: 4 0RF Rx Instructions: As directed apixaban 2.5 mg tablet 2.5 mg PO BID Qty: 90 3RF Hold Instructions: Resume on 09/10/20. May restart this medicine today after 4:00 PM metoprolol tartrate 25 mg tablet 25 mg PO BID Qty: 180 3RF isosorbide mononitrate 60 mg tablet extended release 24 hr 60 mg PO DAILY Qty: 90 3RF magnesium hydroxide [Milk of Magnesia] 400 mg/5 mL Suspension 30 ml PO DAILY PRN (Reason: Constipation) omeprazole 40 mg capsule,delayed release(DR/EC) 40 mg PO BID sucralfate 100 mg/mL suspension 10 ml PO QID PRN (Reason: Heartburn) fluticasone propionate [Flonase Allergy Relief] 50 mcg/actuation spray,suspension 2 spray INTRANASAL QAM calcium carbonate-vitamin D3 [Calcium 600 + D(3)] 600 mg(1,500mg) -200 unit Tablet 1 tab PO DAILY sennosides-docusate sodium 8.6-50 mg Tablet 1 tab-cap PO BID PRN (Reason: Constipation) oxycodone-acetaminophen 10-325 mg tablet 1 tab PO Q8H PRN (Reason: Pain, Mild) carbidopa-levodopa 25-100 mg tablet 1 tab PO TID pravastatin 40 mg tablet 40 mg PO DAILY clonazepam 1 mg tablet 1 mg PO BEDTIME pramipexole 0.5 mg tablet 1 mg PO BEDTIME cyanocobalamin (vitamin B-12) 1,000 mcg/mL solution 1,000 mcg IM Q30D Rx Instructions: OF THE allopurinol 300 mg tablet 300 mg PO BID Lumigan 0.01 % drops 1 drp ophthalmic (eye) BEDTIME potassium chloride [Klor-Con 10] 10 mEq tablet extended release 20 meq PO DAILY furosemide 20 mg tablet 20 mg PO DAILY zinc 10 mg Tablet 10 mg PO DAILY levothyroxine 100 mcg tablet 100 mcg PO DAILY fluticasone furoate-vilanterol [Breo Ellipta] 100-25 mcg/dose blister with device 1 inh INHALATION BID Lantus U-100 Insulin 100 unit/mL Solution 10 unit SUBCUT BEDTIME Referrals: Terence Rogers [Primary Care Provider] - Coding Level of Care Code ED Radiological Defense Officer for Patrizia Corral
[2022-11-09 18:11] LABS: Basophils % 0.2 %; Hematocrit 31.6 % (37.0-47.0); Hemoglobin 9.6 g/dL (11.5-15.3); Lymphocytes # 0.6 10^3/uL (0.8-4.8); Lymphocytes % 3.8 %; Mean Corpuscular HGB Conc 30.4 g/dL (30.0-36.0); Mean Corpuscular Volume 95.5 fl (81-99); Mean Platelet Volume 11.8 fL (7.4-10.4); Monocytes # 1.1 10^3/uL (0.2-0.9); Monocytes % 6.4 %; Neutrophils # 14.94 10^3/uL (1.8-7.7); Neutrophils % 89.1 %; Nucleated Red Blood Cells % 0 %; Platelet Count 132 10^3/cmm (130-400); Red Blood Count 3.31 10^6/uL (4.1-5.3); Red Cell Distribution Width 15.4 % (12.1-15.1); White Blood Count 16.8 10^3/uL (4.0-10.0)
[2022-11-09 18:21] LABS: Alanine Aminotransferase < 5 U/L (0-33); Alkaline Phosphatase 121 U/L (35-105); Anion Gap 16.7 (5-19); Aspartate Amino Transferase 12 U/L (0-32); Blood Urea Nitrogen 27 mg/dL (8-23); Calcium 9.2 mg/dL (8.5-10.5); Carbon Dioxide 22 mmol/L (22-29); Chloride 105 mmol/L (98-107); Creatinine Clr Calc Pharmacy 43.5311; Globulin 2.2 g/dL (1.3-4.6); Glucose 178 mg/dL (65-115); Osmolality Calculated 300 mOsm/kg (285-295); Potassium 3.7 mmol/L (3.5-5.1); Sodium 140 mmol/L (136-145); Total Bilirubin 0.4 mg/dL (0.15-1.2); Total Protein 6.2 g/dL (6.6-8.7)
--- NOTE | 2022-11-09 18:36 | PC.PHAR ---
pt family states she is no longer taking propafenone 150 mg every 8 hours
[2022-11-09 18:38] LABS: SARS Covid-2 Antigen negative (Negative)
[2022-11-09 19:45] LABS: NT Pro B Type Natriuretic Pept 5104 pg/mL (0-450)
[2022-11-09 19:50] LABS: Urine Color Dark yellow (Yellow)
[2022-11-09 19:51] LABS: Add Urine Microscopic? YES; Bacteria Urine TRACE /hpf; Bilirubin Urine Neg (Negative); Blood Urine Neg (Negative); Glucose Urine UA Norm (Normal); Ketones Urine 1+ (Negative); Leukocyte Esterase Urine Trace (Negative); Nitrate Urine Negative (Negative); Protein Urine 3+ (Negative); RBC Urine 0-4 /hpf (0-2); Squamous Epithelial Cell Urine 15-25 /hpf (0-5); Urobilinogen Urine Norm (Negative); pH Urine 5 (5-7)
[2022-11-09 19:52] LABS: Add Urine Culture? No
[2022-11-09] MEDS: albuterol 2.5 mg/3 mL Neb INHALATION (19:54)
[2022-11-09] MEDS: cefTRIAXone 1,000 MG in sodium chloride 0.9% (plus) 50 ML 100 MG IV (20:04)
[2022-11-09] MEDS: azithromycin 500 MG in sodium chloride 0.9% 250 ML 250 MG IV (21:19)
--- NOTE | 2022-11-09 21:30 | PM.HP ---
Providers/Chief Complaint Admitting Physician: Vignesh Garibay MD Primary Care Provider: Terence Rogers Chief Complaint: SOB History of Present Illness Vaibhav Ramsey is a 82 year old female with a past medical history of atrial fibrillation on Eliquis, history of insulin-dependent type 2 diabetes mellitus, hypothyroidism, restrictive lung disease, history of anxiety, who presents to [facility] due to increased shortness of breath, wheezing, productive cough. She tells me that she is here in the hospital because of her productive wheezing, increased shortness of breath with exertion, productive cough, yellow-green sputum. Denies any fevers, no chills. She does report lower extremity edema, no orthopnea, no paroxysmal nocturnal dyspnea, no chest pain, no palpitations Review of Systems Const: Denies: fever(s) Eyes: Denies: change in vision Card: Denies: chest pain Resp: Reports: dyspnea GI: Denies: abdominal pain : Denies: flank pain Musc: Denies: back pain Neuro: Denies: headache(s) Medications/Allergies Home Medications Medication Instructions Recorded Confirmed Last Taken Type allopurinol 300 mg tablet 300 mg PO BID 07/31/19 11/09/22 11/09/22 History bimatoprost 0.01 % eye drops 1 drp ophthalmic (eye) BEDTIME 07/31/19 11/09/22 11/08/22 History (Mario Alberto) carbidopa 25 mg-levodopa 100 mg 1 tab PO TID 07/31/19 11/09/22 11/09/22 History tablet clonazepam 1 mg tablet 1 mg PO BEDTIME 07/31/19 11/09/22 11/08/22 History cyanocobalamin (vitamin B-12) 1,000 mcg IM Q30D 07/31/19 11/09/22 08/20/22 History 1,000 mcg/mL injection solution oxycodone-acetaminophen 10 mg-325 1 tab PO Q8H PRN Pain, Mild 07/31/19 11/09/22 11/09/22 History mg tablet pramipexole 0.5 mg tablet 1 mg PO BEDTIME 07/31/19 11/09/22 11/08/22 History pravastatin 40 mg tablet 40 mg PO DAILY 07/31/19 11/09/22 11/08/22 History sennosides 8.6 mg-docusate sodium 1 tab-cap PO BID PRN Constipation 07/31/19 11/09/22 08/29/22 History 50 mg tablet nitroglycerin 0.4 mg sublingual 0.4 mg sublingual Q5M PRN chest 12/10/19 11/09/22 07/06/20 20:00 Rx tablet pain 30 days #30 tabs magnesium hydroxide 400 mg/5 mL 30 ml PO DAILY PRN Constipation 12/15/19 11/09/22 07/05/20 09:00 History oral suspension (Milk of Magnesia) omeprazole 40 mg capsule,delayed 40 mg PO BID 12/15/19 11/09/22 11/09/22 History release sucralfate 100 mg/mL oral 10 ml PO QID PRN Heartburn 12/15/19 11/09/22 05/28/21 History suspension calcium carbonate 600 mg-vitamin 1 tab PO DAILY 06/22/20 11/09/22 11/09/22 History D3 5 mcg (200 unit) tablet (Calcium 600 + D(3)) potassium chloride 10 mEq 20 meq PO DAILY 07/15/20 11/09/22 11/09/22 History tablet,extended release (Klor-Con) fluticasone propionate 50 2 spray intranasal QAM 10/27/20 11/09/22 11/09/22 History mcg/actuation nasal spray,suspension (Flonase Allergy Relief) sertraline 50 mg tablet 50 mg PO DAILY 07/02/21 11/09/22 11/09/22 History trazodone 50 mg tablet 50 mg PO BEDTIME 07/02/21 11/09/22 11/08/22 History post mastectomy Bras #4 ea 01/14/22 11/09/22 Unknown Rx apixaban 2.5 mg tablet 2.5 mg PO BID #90 tabs 03/16/22 11/09/22 11/09/22 Rx metoprolol tartrate 25 mg tablet 25 mg PO BID #180 tabs 05/19/22 11/09/22 11/09/22 Rx isosorbide mononitrate 60 mg 60 mg PO DAILY #90 tabs 07/20/22 11/09/22 11/09/22 Rx tablet,extended release 24 hr roflumilast 250 mcg tablet 250 mcg PO DAILY #30 tabs 08/17/22 11/09/22 11/09/22 Rx (Daliresp) furosemide 20 mg tablet 20 mg PO DAILY 08/26/22 11/09/22 11/09/22 History zinc 10 mg tablet 10 mg PO DAILY 08/26/22 11/09/22 11/09/22 History fluticasone furoate 100 1 inh inhalation BID 08/30/22 11/09/22 11/09/22 History mcg-vilanterol 25 mcg/dose inhalation powder (Breo Ellipta) levothyroxine 100 mcg tablet 100 mcg PO DAILY 08/30/22 11/09/22 11/09/22 History albuterol sulfate 90 mcg/actuation 2 puff inhalation Q6H PRN 09/01/22 11/09/22 Unknown History aerosol inhaler Shortness Of Breath naloxone 4 mg/actuation nasal spray 4 mg intranasal Q3M PRN overdose 09/01/22 11/09/22 Unknown History spironolactone 25 mg tablet 25 mg PO DAILY 09/01/22 11/09/22 11/09/22 History insulin glargine 100 unit/mL 10 unit SUBCUT BEDTIME 11/09/22 11/09/22 11/08/22 History subcutaneous solution (Lantus U-100 Insulin) Allergies Allergy/AdvReac Type Severity Reaction Status Date / Time codeine Allergy patient Verified 09/09/22 08:57 doesn't recall flecainide Allergy severe Verified 09/09/22 08:57 vomiting Iodinated Contrast Media Allergy renal Verified 09/09/22 08:57 disease naproxen Allergy renal Verified 09/09/22 08:57 disease Penicillins Allergy hives Verified 09/09/22 08:57 shellfish derived Allergy unknown Verified 09/09/22 08:57 Sulfa (Sulfonamide Allergy itching Verified 09/09/22 08:57 Antibiotics) tramadol AdvReac makes me Verified 09/09/22 08:57 crazy garlic Allergy unknown Uncoded 09/09/22 08:57 PFSH Acute PFSH: Medical History Anemia -on iron supplementation Atypical chest pain Cardiac [place]ization [place] [address] Monaco. She had no significant coronary artery disease at that time. Bilateral renal cysts On multiple imaging modalities all appear simple. No further work-up recommended December 2020 Bradycardia Chest pain Chronic anticoagulation Chronic back pain Chronic kidney disease -baseline Cr appears to be around 2-2.3 - Chronic kidney disease Chronic respiratory failure with hypoxia and hypercapnia COPD (chronic obstructive pulmonary disease) Uses 3 L [id number] and BiPAP at night COVID-19 Diastolic heart failure Diastolic heart failure Elevated troponin Former smoker GERD (gastroesophageal reflux disease) Gout History of pulmonary embolism -is on AC with Eliquis Hypertension Hypothyroidism Intermittent atrial fibrillation Normal coronary angiogram Cardiac angiogram done in September 2015 Osteoarthritis Pacemaker Paroxysmal A-fib Right bundle branch block Supraventricular tachycardia Symptomatic bradycardia Syncope Type 2 diabetes mellitus UTI (urinary tract infection) - Surgical History H/O colonoscopy 2019 H/O esophagogastroduodenoscopy (~04/2020) 2019 H/O hernia repair H/O left knee surgery H/O right mastectomy History of cholecystectomy History of tonsillectomy Tubal ligation status Family History Father CAD (coronary artery disease) Family history of premature coronary artery disease Hypertension Mother Cancer Chronic kidney disease (CKD) Hypertension Sister Hyperlipidemia Hypertension Daughter No problems noted. Other Diabetes Social History Smoking and tobacco status: former smoker Quit status (tobacco): has quit using tobacco Year quit tobacco: 1970 - PD x 25 Years Alcohol intake: never Substance/Drug Use: never Caregiver/support person: Yes Lives independently: Yes Household members: family Housing: House Marital status: / Current occupational status: retired Do you think of yourself as: Straight/Heterosexual Vitals/I&O/Wt Last Vital Signs Temp 98.9 F 11/09/22 17:30 Pulse 92 11/09/22 21:21 Resp 16 11/09/22 21:21 BP 133/60 11/09/22 21:21 Pulse Ox 98 11/09/22 21:21 O2 Del Method Nasal Cannula 11/09/22 19:56 O2 Flow Rate 3 11/09/22 19:56 11/09/22 11/09/22 11/09/22 06:59 14:59 22:59 Intake Total 50 / 50 Balance 50 / 50 Weight last 48 hrs Weight 63.503 kg Physical Exam Const: COMMON NORMALS: no acute distress and patient oriented x3 Eye: COMMON NORMALS: Equal, round and reactive pupils present and EOMs intact bilaterally Neck/C-Spine: COMMON NORMALS: full ROM and no lymphadenopathy Lymph: LYMPHATIC: no lymphadenopathy noted Resp: COMMON NORMALS: normal respiratory effort, No retractions, No use of accessory muscles and clear to auscultation bilaterally AUSCULTATION: wheezes inspiratory wheezes and throughout Cardio: COMMON NORMALS: regular rate, regular rhythm, S1 normal heart sound present and S2 normal heart sound present RATE: regular rate RHYTHM: regular rhythm HEART SOUNDS: S1 normal heart sound present and S2 normal heart sound present GI: COMMON NORMALS: Normal to inspection, nondistended, normoactive bowel sounds present, Soft to palpation and non-tender Extremity: COMMON NORMALS: no pedal edema Neuro: COMMON NORMALS: patient oriented x3, CN's II-XII intact bilaterally, moves all extremities and no focal motor deficits Psych: COMMON NORMALS: mental status grossly normal Data 11/09/22 17:50 11/09/22 17:50 Micro: Microbiology 11/09/22 19:45 Blood Culture - Preliminary Blood SPECIMEN COLLECTED 11/09/22 19:39 Blood Culture - Preliminary Blood SPECIMEN COLLECTED A&P Assessment and plan (1) Acute respiratory failure with hypoxia: (2) Community acquired pneumonia: (3) Restrictive lung disease: (4) Acute exacerbation of chronic obstructive pulmonary disease: (5) Atrial fibrillation: (6) CHF exacerbation: (7) Diastolic heart failure: Qualifiers: Heart failure chronicity: chronic Qualified Code(s): I50.32 - Chronic diastolic (congestive) heart failure (8) Type 2 diabetes mellitus: Qualifiers: Diabetes mellitus complication status: without complication Diabetes mellitus long term care administrator insulin use: without longterm use Qualified Code(s): E11.9 - Type 2 diabetes mellitus without complications Plan Acute hypoxic respiratory failure -Multifactorial -Likely secondary to exacerbation of COPD, restrictive lung disease, pneumonia, CHF Plan -Will monitor respiratory status -Continue Rocephin, azithromycin -Continue Decadron -Continue Lasix therapy 40 IV twice daily, monitor creatinine, monitor potassium -CT chest -Continue home BiPAP -Full code -Eliquis for DVT prophylaxis UTI Rocephin History of restrictive lung disease History of diastolic CHF History of insulin-dependent type 2 diabetes mellitus, low-dose sliding scale, Lantus History of atrial fibrillation continue Eliquis History of hypothyroidism Attestations Medical Necessity Statement*: Patient requires hospitalization for acute hypoxic respiratory failure, secondary to pneumonia, COPD, restrictive lung disease, diastolic CHF, inpatient, greater than 2 midnights Diagnoses Acute respiratory failure with hypoxia J96.01 Community acquired pneumonia J18.9 Restrictive lung disease J98.4 Acute exacerbation of chronic obstructive pulmonary disease J44.1 Atrial fibrillation I48.91 CHF exacerbation I50.9 Diastolic heart failure I50.32 Heart failure chronicity: chronic Type 2 diabetes mellitus E11.9 Diabetes mellitus complication status: without complication Diabetes mellitus long term care administrator insulin use: without long term care administrator use
--- NOTE | 2022-11-09 21:32 | ECG_ITS ---
[facility] Test Date: 2022-11-09 Pat Name: Vaibhav Ramsey Department: Room: 269 Gender: Female Licensed Appraiser: : 1940 Requested By: Vignesh Garibay Order Number: [id number] Rodolfo MD: Vanessa Gregorio M.D. Measurements Intervals [place] Rate: 92 P: 60 ME: 238 QRS: 83 QRSD: 141 T: -7 QT: 386 QTc: 479 Interpretive Statements SINUS RHYTHM WITH FIRST DEGREE AV BLOCK WITH OCCASIONAL SUPRAVENTRICULAR PREMATURE COMPLEXES RIGHT BUNDLE BRANCH BLOCK [120+ ms QRS DURATION, UPRIGHT V1, 40+ ms S IN I/aVL/V4/V5/V6] ST DEPRESSION, CONSIDER SUBENDOCARDIAL INJURY [0.1+ mV ST DEPRESSION] Compared to ECG 11/09/2022 17:41:15 ST (T wave) deviation now present Electronically Signed On 11-10-2022 0:23:55 CDT by Vanessa Gregorio M.D. [email or web address]
--- NOTE | 2022-11-09 22:15 | CTR_ITS ---
PROCEDURE INFORMATION: Exam: CT Chest Without Contrast; Diagnostic Exam date and time: 11/09/2022 10:37 PM Age: 82 years old Clinical indication: Shortness of breath; Prior surgery; Surgery type: Pacer; Patient HX: SOB. History of breast cancer. TECHNIQUE: Imaging protocol: Diagnostic computed tomography of the chest without contrast. Radiation optimization: All CT scans at this facility use at least one of these dose optimization techniques: automated exposure control; mA and/or kV adjustment per patient size (includes targeted exams where dose is matched to clinical indication); or iterative reconstruction. REPORTING DATA: Count of CT and Cardiac NM exams in prior 12 months: This patient has received 3 known CTs and 0 known cardiac nuclear medicine studies in the 12 months prior to the current study. COMPARISON: 1. CT chest wo con [id number] 07/15/2022 2:26 PM 2. CR (CHEST, ) 11/09/2022 6:02 PM RADIATION DOSE METRICS: Total DLP (mGy-cm): 238.63 FINDINGS: Tubes, catheters and devices: There is a single lead cardiac pacer via left subclavian approach. Findings are stable. Trachea: Tracheobronchial structures are patent. Lungs: Areas of ground-glass opacification in the upper lobe, middle lobe, and lower lobe. More extensive alveolar opacification and reticulonodular interstitial thickening in the lower lobes, greater on the left. Findings are better visualized compared with the prior chest x-ray done earlier on 11/09/2022. Calcified granuloma in the right middle lobe. Pleural spaces: No pneumothorax. No pleural effusion. Heart: Stable marked enlargement of the heart. Stable calcification of the aortic valve and mitral valve annulus. Esophagus: The esophagus is unremarkable. Mediastinal space: No mediastinal hematoma. No pneumomediastinum. Lymph nodes: Stable enlarged mediastinal lymph nodes measuring up to 1.6 cm in the precarinal region (series 3, image 24). Vasculature: Stable moderate atherosclerotic changes in the visualized arteries. No evidence for aortic aneurysm. Liver: The visualized liver is unremarkable. Gallbladder and bile ducts: Patient has had a previous cholecystectomy. No dilatation of the visualized bile ducts. Pancreas: The visualized pancreas is unremarkable. No pancreatic ductal dilatation. Spleen: Calcified granuloma in the spleen. Adrenal glands: Low-density nodules in the right and left adrenal glands, consistent with adenomas. Right adrenal adenoma measures 2.2 x 1.1 cm (series 3, image 59). Two adenomas in the left adrenal, the larger measures 3.2 x 1.6 cm (series 3, image 59). Kidneys and ureters: Partially visualized cyst in the left kidney measures 4.7 cm. Bones/joints: Degenerative changes in the spine and shoulders. Bones are diffusely osteopenic. 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 No lytic or sclerotic bony lesions. Soft tissues: .Stable findings consistent with a previous right mastectomy. Mild body wall edema. CT/CT chest wo con [id number] IMPRESSION: 1. Areas of ground-glass opacification in the upper lobe, middle lobe, and lower lobe. More extensive alveolar opacification and reticulonodular interstitial thickening in the lower lobes, greater on the left. Findings are better visualized compared with the prior chest x-ray done earlier on 11/09/2022. Findings are suspicious for pneumonia, including atypical organisms. Recommend clinical correlation. Recommend followup chest imaging to insure resolution of these findings. 2. Mild body wall edema. 3. Stable mediastinal lymphadenopathy. Possible metastatic foci cannot be ruled out. 4. Incidental/nonacute findings are listed in the report. COMMENTS: 1. Urgent results were discussed with WINTER Gonzalez on 11/09/2022 at 11:02 PM the CDT. 2. Consistent with the [employer]'s Incidental Findings Committee white paper (J Am Elvis Radiol 2017): For any incidental adrenal lesion greater than or equal to 1 cm but less than or equal to 4 cm classified in this report as benign, likely benign, or containing fat (including classification as an adenoma or myelolipoma), no follow-up imaging is recommended per consensus recommendations based on imaging criteria. Further lab evaluation could be pursued if warranted based on clinical findings. 3. Consistent with the [employer]'s Incidental Findings Committee white paper (J Am Elvis Radiol 2018): Any incidental renal lesion less than 1 cm or classified as too small to characterize, or any incidental cystic renal lesion characterized as simple-appearing, is likely benign. No follow-up imaging is recommended for these lesions per consensus recommendations based on imaging criteria.
[2022-11-09 22:45] LABS: Troponin(5th) Baseline 32 ng/L (0-10)
[2022-11-09] MEDS: pramipexole 0.25 mg Tablet 1 MG PO (22:51)
[2022-11-09] MEDS: FUROsemide 10 mg/mL SDV 4mL 40 MG IVP (22:51)
[2022-11-09] MEDS: pantoprazole 40 mg SDV IVP (22:52)
[2022-11-09 23:01] LABS: C Reactive Protein 81.2 mg/L (0.0-4.9); Procalcitonin 1.71 ng/mL (0-0.5)
[2022-11-09] MEDS: insulin glargine 100 units/1 mL 10 UNIT SUBCUT (23:45)
[2022-11-10] VITALS (19 sets, daily range): BP systolic 107–133; BP diastolic 52–63; PULSE 80–94; RESP 13–18; TEMP 36.6–36.9; O2SAT 96–99
[2022-11-10] MEDS: ipratropium-albuterol 3 mL Neb INHALATION ×7 (01:43→23:10)
[2022-11-10 02:43] LABS: Troponin 5 2HR 30.03 ng/L (0-10)
[2022-11-10 02:44] LABS: Troponin 5 2HR Delta -1.97 ABS# (0-10)
[2022-11-10 04:05] LABS: Adenovirus Not Detected (NOT DETECT); Chlamydia Pneumoniae Not Detected (NOT DETECT); Coronavirus 229E,HKU1,NL63,OC4 Not Detected (NOT DETECT); Human Metapneumovirus Not Detected (NOT DETECT); Human Rhinovirus/Enterovirus Detected (NOT DETECT); Influenza A Not Detected (NOT DETECT); Influenza A H1 Not Detected (NOT DETECT); Influenza A H1-2009 Not Detected (NOT DETECT); Influenza A H3 Not Detected (NOT DETECT); Influenza B Not Detected (NOT DETECT); Mycoplasma Pneumoniae Not Detected (NOT DETECT); Parainfluenza Virus Type 1 Not Detected (NOT DETECT); Parainfluenza Virus Type 2 Not Detected (NOT DETECT); Parainfluenza Virus Type 3 Not Detected (NOT DETECT); Parainfluenza Virus Type 4 Not Detected (NOT DETECT); Respiratory Syncytial Virus A Not Detected (NOT DETECT); Respiratory Syncytial Virus B Not Detected (NOT DETECT); SARS-COV-2 Not Detected (NOT DETECT)
--- NOTE | 2022-11-10 05:05 | ECG_ITS ---
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 Measurements Intervals [place] Rate: 91 P: 10 MO: 155 QRS: 51 QRSD: 142 T: -20 QT: 424 QTc: 523 Interpretive Statements SINUS RHYTHM RIGHT BUNDLE BRANCH BLOCK [120+ ms QRS DURATION, UPRIGHT V1, 40+ ms S IN I/aVL/V4/V5/V6] MARKED T-WAVE ABNORMALITY, CONSIDER ANTERIOR ISCHEMIA [-0.5+ mV T-WAVE IN V3/V4] INTERPRETATION BASED ON A DEFAULT AGE OF 40 YEARS Compared to ECG 11/09/2022 21:32:59 T-wave abnormality now present Possible ischemia now present First degree AV block no longer present ST (T wave) deviation no longer present Electronically Signed On 11-10-2022 14:24:16 CDT by Enzo Monaco M.D. [id number]
[2022-11-10 05:11] LABS: Basophils % 0.1 %; Hematocrit 30.6 % (37.0-47.0); Hemoglobin 9.6 g/dL (11.5-15.3); Lymphocytes # 0.2 10^3/uL (0.8-4.8); Lymphocytes % 1.5 %; Mean Corpuscular HGB Conc 31.4 g/dL (30.0-36.0); Mean Corpuscular Hemoglobin 29.4 pg (28.0-34.0); Mean Corpuscular Volume 93.6 fl (81-99); Mean Platelet Volume 12.3 fL (7.4-10.4); Monocytes # 0.2 10^3/uL (0.2-0.9); Monocytes % 1.6 %; Neutrophils % 96.4 %; Nucleated Red Blood Cells % 0 %; Platelet Count 134 10^3/cmm (130-400); Red Blood Count 3.27 10^6/uL (4.1-5.3); Red Cell Distribution Width 15.5 % (12.1-15.1)
[2022-11-10 05:26] LABS: Troponin 5 6HR 34.34 ng/L (0-10); Troponin 5 6HR Delta 2.34 ng/L (0-12)
[2022-11-10 05:27] LABS: Estmated Average Glucose 131; Hemoglobin A1C 6.2 % (4.0-6.0)
[2022-11-10 05:39] LABS: Anion Gap 15.5 (5-19); Blood Urea Nitrogen 33 mg/dL (8-23); Calcium 9.1 mg/dL (8.5-10.5); Carbon Dioxide 22 mmol/L (22-29); Chloride 105 mmol/L (98-107); Glucose 283 mg/dL (65-115); NT Pro B Type Natriuretic Pept 8250 pg/mL (0-450); Osmolality Calculated 306 mOsm/kg (285-295); Potassium 3.5 mmol/L (3.5-5.1); Sodium 139 mmol/L (136-145); Thyroid Stimulating Hormone 0.89 uIU/mL (0.27-4.20)
[2022-11-10] MEDS: levothyroxine 100 mcg Tablet PO (05:56)
[2022-11-10] MEDS: fluticasone nasal spray 16gm Btl 2 SPRAY INTRANASAL (05:56)
[2022-11-10] MEDS: budesonide 0.5 mg/2 mL Neb INHALATION ×2 (08:18→20:01)
[2022-11-10] MEDS: carbidopa-levodopa 25-100mg Tablet 1 EACH PO ×3 (08:44→20:57)
[2022-11-10] MEDS: roflumilast 500 mcg Tablet 250 MCG PO (08:44)
[2022-11-10] MEDS: sertraline 50 mg Tablet PO (08:45)
[2022-11-10] MEDS: atorvastatin 40 mg Tablet 20 MG PO (08:45)
[2022-11-10] MEDS: potassium chloride ER 10 mEq Tablet 20 MEQ PO (08:45)
[2022-11-10] MEDS: apixaban 5 mg Tablet 2.5 MG PO ×2 (08:45→17:35)
[2022-11-10] MEDS: isosorbide mononitrate ER 60 mg Tablet PO (08:45)
[2022-11-10] MEDS: allopurinol 300 mg Tablet PO ×2 (08:46→17:35)
[2022-11-10] MEDS: spironolactone 25 mg Tablet PO (08:46)
[2022-11-10] MEDS: metoprolol tartrate 25 mg Tablet PO ×2 (08:46→17:35)
[2022-11-10 08:57] LABS: Glucose Point of Care 213 mg/dL (70-110)
[2022-11-10] MEDS: insulin lispro 100 unit/1 mL SUBCUT ×2 (10:10→12:51)
--- NOTE | 2022-11-10 10:54 | PC.CHAP ---
Pastoral Care Encounter/Spiritual Assessment Type of Contact [] Declined cloud operations engineer visit [] Patient/Family/Request visit [] Outpatient visit [] Follow-up visit [] Physician referral [] Code/Alert [x] Routine visit [] Staff referral [] Actively dying [] Patient sleeping [] Family support [] [] Out of room [] Palliative care [] [] Receiving care in room [] Pre-surgical visit [] Trauma [] Long length of stay [] ICU visit [] Other: Relational/Emotional Strength [] Patient feels connected with others/family/visitors/staff [] Distress [] Loneliness/isolation [] Abandonment Spirituality of Patient [x] Person of Alexa [] Attends Hoahaoism of their Alexa [] Believes in Prayer [] Reads Bible or Evangelical materials [] There are Spiritual issues to be addressed Customer Experience Analyst Interventions x[] Prayer [] Active listening [] Non-anxious presence [] Spiritual/emotional support [] Crisis/trauma care [] Spiritual counseling [] Bereavement support [] Provided bereavement packet [] Provided Bible/devotional materials [] Provided toy/stuffed animal, coloring book to patient or family member [] Provided Communion [] Anointing/[place] [] Salvation [x] Completed spiritual assessment [] Other: Impact on Illness or Injury [] Angry [] Fearful [] Anxious [] Often cries [] Exhaustion [] Unable to work [] Unable to attend mandaen [] Unable to walk/stand [] Unable to read [] Unable to drive [] Unable to eat/drink [] Unable to sleep [] Unable to be with family [] Patient intubated [] Other: Summary Time spent with patient 19 min
[2022-11-10] MEDS: FUROsemide 10 mg/mL SDV 4mL 40 MG IVP ×2 (11:33→22:14)
[2022-11-10 12:28] LABS: Glucose Point of Care 250 mg/dL (70-110)
[2022-11-10 12:28] LABS: Glucose Point of Care 201 mg/dL (70-110)
[2022-11-10 17:08] LABS: Glucose Point of Care 119 mg/dL (70-110)
[2022-11-10] MEDS: pramipexole 0.25 mg Tablet 1 MG PO (20:57)
[2022-11-10] MEDS: CLONazepam 1 mg Tablet PO (20:57)
[2022-11-10] MEDS: trazodone 50 mg Tablet PO (20:57)
[2022-11-10 20:58] LABS: Glucose Point of Care 143 mg/dL (70-110)
[2022-11-10] MEDS: cefTRIAXone 1,000 MG in sodium chloride 0.9% (plus) 50 ML 100 MG IV (20:58)
[2022-11-10] MEDS: azithromycin 500 MG in sodium chloride 0.9% 250 ML 250 MG IV (21:40)
[2022-11-10] MEDS: insulin glargine 100 units/1 mL 10 UNIT SUBCUT (21:50)
[2022-11-10] MEDS: pantoprazole 40 mg SDV IVP (22:14)
--- NOTE | 2022-11-10 23:06 | PM.PN ---
Subjective Subjective: overnight labs and H&P reviwed. Continues to have significant hweezing this afternoon though patient feels symptomaticallly better. She is on 3lpm supplemental 02 which is her baseline. Vitals/I&O/Wt Last Vital Signs Temp 98.5 F 11/10/22 19:28 Pulse 89 11/10/22 20:10 Resp 18 11/10/22 20:00 BP 125/61 11/10/22 19:28 Pulse Ox 99 11/10/22 20:00 O2 Del Method Nasal Cannula 11/10/22 20:00 O2 Flow Rate 3 11/10/22 20:00 11/10/22 11/10/22 11/11/22 14:59 22:59 06:59 Intake Total 610 / 610 290 / 900 Balance 610 / 610 290 / 900 Weight last 48 hrs Weight 63.503 kg Physical Exam Narrative: General: No acute distress, AO x3 HEENT: PERRLA, pupils bilaterally equal and reactive, pallors not present Chest: Normal vesicular breath sounds, no added sounds, equal good air entry bilaterally CVS: S1-S2 regular, no murmurs, no tachycardia, no gallops, no rubs Abdomen: Soft, nontender, no organomegaly, bowel sounds present Neuro: No focal deficits, no facial deformity, AO x3, power 5/5 in all limbs Data 11/10/22 04:26 11/10/22 04:26 Micro: Microbiology 11/09/22 19:45 Blood Culture - Preliminary Blood NEGATIVE TO DATE 11/09/22 19:39 Blood Culture - Preliminary Blood NEGATIVE TO DATE A&P Assessment and plan (1) Acute respiratory failure with hypoxia: (2) Community acquired pneumonia: (3) Restrictive lung disease: (4) Acute exacerbation of chronic obstructive pulmonary disease: (5) Atrial fibrillation: (6) CHF exacerbation: (7) Diastolic heart failure: Qualifiers: Heart failure chronicity: chronic Qualified Code(s): I50.32 - Chronic diastolic (congestive) heart failure (8) Type 2 diabetes mellitus: Qualifiers: Diabetes mellitus watermelon inspector insulin use: without senior care use Diabetes mellitus complication status: without complication Qualified Code(s): E11.9 - Type 2 diabetes mellitus without complications (9) Enterovirus infection, unspecified: Plan Acute hypoxic respiratory failure -Multifactorial -Likely secondary to exacerbation of COPD, restrictive lung disease, pneumonia, CHF -Continue Rocephin, azithromycin -Continue Decadron -Continue Lasix therapy 40 IV twice daily, monitor creatinine, monitor potassium -CT chest Areas of ground-glass opacification in the upper lobe, middle lobe, and lower lobe. More extensive alveolar opacification and reticulonodular interstitial thickening in the lower lobes, greater on the left. -RVP positive for entero/rhinovirus -Continue home BiPAP -Full code -Eliquis for DVT prophylaxis UTI Rocephin History of restrictive lung disease History of diastolic CHF History of insulin-dependent type 2 diabetes mellitus, low-dose sliding scale, Lantus History of atrial fibrillation continue Eliquis History of hypothyroidism Attestations Medical Necessity Statement*: continued respiratory support with iv steroids, scehduled nebulization Coding Level of Care Code Acute Code for [facility] Diagnoses Acute respiratory failure with hypoxia J96.01 Community acquired pneumonia J18.9 Restrictive lung disease J98.4 Acute exacerbation of chronic obstructive pulmonary disease J44.1 Atrial fibrillation I48.91 CHF exacerbation I50.9 Diastolic heart failure I50.32 Heart failure chronicity: chronic Type 2 diabetes mellitus E11.9 Diabetes mellitus watermelon inspector insulin use: without senior care use Diabetes mellitus complication status: without complication Enterovirus infection, unspecified B34.1
[2022-11-11] VITALS (11 sets, daily range): BP systolic 103–130; BP diastolic 51–67; PULSE 70–96; RESP 15–22; TEMP 36.4–36.8; O2SAT 91–100
[2022-11-11] MEDS: ipratropium-albuterol 3 mL Neb INHALATION ×5 (03:58→21:32)
[2022-11-11] MEDS: fluticasone nasal spray 16gm Btl 2 SPRAY INTRANASAL (05:29)
[2022-11-11] MEDS: levothyroxine 100 mcg Tablet PO (05:29)
[2022-11-11 05:49] LABS: Basophils % 0.1 %; Eosinophils % 0.2 %; Hematocrit 30.1 % (37.0-47.0); Hemoglobin 9.1 g/dL (11.5-15.3); Lymphocytes # 0.7 10^3/uL (0.8-4.8); Lymphocytes % 7.1 %; Mean Corpuscular HGB Conc 30.2 g/dL (30.0-36.0); Mean Corpuscular Hemoglobin 28.7 pg (28.0-34.0); Mean Platelet Volume 11.9 fL (7.4-10.4); Monocytes # 0.6 10^3/uL (0.2-0.9); Monocytes % 5.9 %; Neutrophils # 8.26 10^3/uL (1.8-7.7); Neutrophils % 86.2 %; Nucleated Red Blood Cells % 0 %; Platelet Count 117 10^3/cmm (130-400); Red Blood Count 3.17 10^6/uL (4.1-5.3); Red Cell Distribution Width 15.8 % (12.1-15.1); White Blood Count 9.6 10^3/uL (4.0-10.0)
[2022-11-11 06:09] LABS: Alanine Aminotransferase < 5 U/L (0-33); Albumin Level 3.7 g/dL (3.5-5.2); Alkaline Phosphatase 104 U/L (35-105); Anion Gap 15.9 (5-19); Aspartate Amino Transferase 13 U/L (0-32); Blood Urea Nitrogen 45 mg/dL (8-23); Calcium 9.2 mg/dL (8.5-10.5); Carbon Dioxide 23 mmol/L (22-29); Chloride 107 mmol/L (98-107); Globulin 2.5 g/dL (1.3-4.6); Glucose 74 mg/dL (65-115); Osmolality Calculated 304 mOsm/kg (285-295); Potassium 3.9 mmol/L (3.5-5.1); Sodium 142 mmol/L (136-145); Total Bilirubin 0.2 mg/dL (0.15-1.2); Total Protein 6.2 g/dL (6.6-8.7)
[2022-11-11 06:37] LABS: Glucose Point of Care 83 mg/dL (70-110)
[2022-11-11] MEDS: isosorbide mononitrate ER 60 mg Tablet PO (08:44)
[2022-11-11] MEDS: sertraline 50 mg Tablet PO (08:44)
[2022-11-11] MEDS: apixaban 5 mg Tablet 2.5 MG PO ×2 (08:44→17:22)
[2022-11-11] MEDS: atorvastatin 40 mg Tablet 20 MG PO (08:45)
[2022-11-11] MEDS: carbidopa-levodopa 25-100mg Tablet 1 EACH PO ×3 (08:45→21:02)
[2022-11-11] MEDS: allopurinol 300 mg Tablet PO ×2 (08:45→17:23)
[2022-11-11] MEDS: spironolactone 25 mg Tablet PO (08:45)
[2022-11-11] MEDS: roflumilast 500 mcg Tablet 250 MCG PO (08:45)
[2022-11-11] MEDS: potassium chloride ER 10 mEq Tablet 20 MEQ PO (08:45)
[2022-11-11] MEDS: budesonide 0.5 mg/2 mL Neb INHALATION ×2 (09:27→21:32)
[2022-11-11] MEDS: FUROsemide 10 mg/mL SDV 4mL 40 MG IVP ×2 (11:13→22:45)
[2022-11-11 11:27] LABS: Glucose Point of Care 133 mg/dL (70-110)
[2022-11-11] MEDS: oxyCODONE-APAP 10-325 mg Tablet 1 TAB PO (15:08)
--- NOTE | 2022-11-11 15:54 | PM.PN ---
Subjective Subjective: Patient has significant wheezing on exam today. She has just worked with OT, now back in bed. States that its difficult to breathe Medications: Reviewed: Yes Vitals/I&O/Wt Last Vital Signs Temp 98.2 F 11/11/22 12:00 Pulse 90 11/11/22 12:00 Resp 17 11/11/22 15:08 BP 122/67 11/11/22 12:00 Pulse Ox 97 11/11/22 12:00 O2 Del Method Nasal Cannula 11/11/22 12:00 O2 Flow Rate 3 11/11/22 12:00 11/11/22 11/11/22 11/11/22 06:59 14:59 22:59 Intake Total 250 / 1150 480 / 480 Balance 250 / 1150 480 / 480 Weight last 48 hrs Weight 63.503 kg Physical Exam Narrative: General: No acute distress, AO x3 HEENT: PERRLA, pupils bilaterally equal and reactive, pallors not present Chest: Normal vesicular breath sounds, no added sounds, equal good air entry bilaterally CVS: S1-S2 regular, no murmurs, no tachycardia, no gallops, no rubs Abdomen: Soft, nontender, no organomegaly, bowel sounds present Neuro: No focal deficits, no facial deformity, AO x3, power 5/5 in all limbs Data 11/11/22 05:29 11/11/22 05:29 Micro: Microbiology 11/09/22 19:45 Blood Culture - Preliminary Blood NEGATIVE TO DATE 11/09/22 19:39 Blood Culture - Preliminary Blood NEGATIVE TO DATE A&P Assessment and plan (1) Acute respiratory failure with hypoxia: (2) Community acquired pneumonia: (3) Restrictive lung disease: (4) Acute exacerbation of chronic obstructive pulmonary disease: (5) Atrial fibrillation: (6) CHF exacerbation: (7) Diastolic heart failure: Qualifiers: Heart failure chronicity: chronic Qualified Code(s): I50.32 - Chronic diastolic (congestive) heart failure (8) Type 2 diabetes mellitus: Qualifiers: Diabetes mellitus watermelon harvesting supervisor insulin use: without watermelon harvesting supervisor use Diabetes mellitus complication status: without complication Qualified Code(s): E11.9 - Type 2 diabetes mellitus without complications (9) Enterovirus infection, unspecified: Plan Acute hypoxic respiratory failure -Multifactorial -Likely secondary to exacerbation of COPD, restrictive lung disease, pneumonia, CHF -Continue Rocephin, azithromycin -Continue Decadron, increase dose to 6mg iv every 12 hrs -Continue Lasix therapy 40 IV twice daily, monitor creatinine, monitor potassium -CT chest Areas of ground-glass opacification in the upper lobe, middle lobe, and lower lobe. More extensive alveolar opacification and reticulonodular interstitial thickening in the lower lobes, greater on the left. -RVP positive for entero/rhinovirus -Continue BiPAP at night -Full code -Eliquis for DVT prophylaxis -add cough suppressants UTI Rocephin History of restrictive lung disease History of diastolic CHF History of insulin-dependent type 2 diabetes mellitus, low-dose sliding scale, Lantus History of atrial fibrillation continue Eliquis History of hypothyroidism Attestations Medical Necessity Statement*: increase steroids given persistent significant wheezing Coding Level of Care Code Acute Code for [facility] Diagnoses Acute respiratory failure with hypoxia J96.01 Community acquired pneumonia J18.9 Restrictive lung disease J98.4 Acute exacerbation of chronic obstructive pulmonary disease J44.1 Atrial fibrillation I48.91 CHF exacerbation I50.9 Diastolic heart failure I50.32 Heart failure chronicity: chronic Type 2 diabetes mellitus E11.9 Diabetes mellitus watermelon harvesting supervisor insulin use: without watermelon harvesting supervisor use Diabetes mellitus complication status: without complication Enterovirus infection, unspecified B34.1
[2022-11-11] MEDS: dexamethasone 10 mg/mL INJ 6 MG IVP (16:49)
[2022-11-11 16:50] LABS: Glucose Point of Care 129 mg/dL (70-110)
[2022-11-11] MEDS: guaiFENesin-dextromethorphan UDC 10 mL 5 ML PO ×2 (17:22→21:02)
[2022-11-11] MEDS: benzonatate 100 mg Capsule PO (17:22)
[2022-11-11] MEDS: metoprolol tartrate 25 mg Tablet PO ×2 (17:49→21:01)
[2022-11-11] MEDS: cefTRIAXone 1,000 MG in sodium chloride 0.9% (plus) 50 ML 100 MG IV (20:15)
[2022-11-11 20:31] LABS: Glucose Point of Care 344 mg/dL (70-110)
[2022-11-11] MEDS: azithromycin 500 MG in sodium chloride 0.9% 250 ML 250 MG IV (20:53)
[2022-11-11] MEDS: pramipexole 0.25 mg Tablet 1 MG PO (21:01)
[2022-11-11] MEDS: trazodone 50 mg Tablet PO (21:02)
[2022-11-11] MEDS: insulin glargine 100 units/1 mL 10 UNIT SUBCUT (21:02)
[2022-11-11] MEDS: CLONazepam 1 mg Tablet PO (21:02)
[2022-11-11] MEDS: pantoprazole 40 mg SDV IVP (22:46)
[2022-11-12] VITALS (9 sets, daily range): BP systolic 107–144; BP diastolic 50–78; PULSE 80–86; RESP 15–22; TEMP 36.3–36.6; O2SAT 92–100
[2022-11-12] MEDS: ipratropium-albuterol 3 mL Neb INHALATION ×4 (00:17→11:48)
[2022-11-12] MEDS: dexamethasone 10 mg/mL INJ 6 MG IVP (03:45)
[2022-11-12 05:03] LABS: Hematocrit 30.3 % (37.0-47.0); Hemoglobin 8.9 g/dL (11.5-15.3); Lymphocytes # 0.2 10^3/uL (0.8-4.8); Lymphocytes % 3.3 %; Mean Corpuscular HGB Conc 29.4 g/dL (30.0-36.0); Mean Corpuscular Hemoglobin 28.5 pg (28.0-34.0); Mean Corpuscular Volume 97.1 fl (81-99); Mean Platelet Volume 11.9 fL (7.4-10.4); Monocytes # 0.1 10^3/uL (0.2-0.9); Monocytes % 2.2 %; Neutrophils # 6.04 10^3/uL (1.8-7.7); Neutrophils % 94.3 %; Nucleated Red Blood Cells % 0 %; Platelet Count 113 10^3/cmm (130-400); Red Blood Count 3.12 10^6/uL (4.1-5.3); Red Cell Distribution Width 15.7 % (12.1-15.1); White Blood Count 6.4 10^3/uL (4.0-10.0)
[2022-11-12 05:25] LABS: Alanine Aminotransferase < 5 U/L (0-33); Albumin Level 3.5 g/dL (3.5-5.2); Alkaline Phosphatase 101 U/L (35-105); Anion Gap 15.5 (5-19); Aspartate Amino Transferase 10 U/L (0-32); Blood Urea Nitrogen 41 mg/dL (8-23); Calcium 8.9 mg/dL (8.5-10.5); Carbon Dioxide 25 mmol/L (22-29); Chloride 105 mmol/L (98-107); Globulin 2.5 g/dL (1.3-4.6); Glucose 221 mg/dL (65-115); Osmolality Calculated 309 mOsm/kg (285-295); Potassium 4.5 mmol/L (3.5-5.1); Sodium 141 mmol/L (136-145); Total Bilirubin 0.2 mg/dL (0.15-1.2)
[2022-11-12] MEDS: fluticasone nasal spray 16gm Btl 2 SPRAY INTRANASAL (05:30)
[2022-11-12] MEDS: levothyroxine 100 mcg Tablet PO (05:30)
[2022-11-12 06:29] LABS: Glucose Point of Care 198 mg/dL (70-110)
--- NOTE | 2022-11-12 08:15 | PC.SOCIAL ---
IMM update IMM updated with patient. Copy Pg 2 provided. Verbalized an understanding. Initialled, dated, timed, and placed in chart.
[2022-11-12] MEDS: insulin lispro 100 unit/1 mL SUBCUT ×2 (08:26→12:09)
[2022-11-12] MEDS: roflumilast 500 mcg Tablet 250 MCG PO (08:26)
[2022-11-12] MEDS: isosorbide mononitrate ER 60 mg Tablet PO (08:26)
[2022-11-12] MEDS: potassium chloride ER 10 mEq Tablet 20 MEQ PO (08:27)
[2022-11-12] MEDS: carbidopa-levodopa 25-100mg Tablet 1 EACH PO (08:27)
[2022-11-12] MEDS: sertraline 50 mg Tablet PO (08:27)
[2022-11-12] MEDS: apixaban 5 mg Tablet 2.5 MG PO (08:27)
[2022-11-12] MEDS: metoprolol tartrate 25 mg Tablet PO (08:27)
[2022-11-12] MEDS: spironolactone 25 mg Tablet PO (08:27)
[2022-11-12] MEDS: atorvastatin 40 mg Tablet 20 MG PO (08:27)
[2022-11-12] MEDS: allopurinol 300 mg Tablet PO (08:27)
[2022-11-12] MEDS: budesonide 0.5 mg/2 mL Neb INHALATION (08:37)
[2022-11-12] MEDS: FUROsemide 10 mg/mL SDV 4mL 40 MG IVP (10:31)
[2022-11-12] MEDS: oxyCODONE-APAP 10-325 mg Tablet 1 TAB PO (10:37)
[2022-11-12 11:39] LABS: Glucose Point of Care 192 mg/dL (70-110)
--- NOTE | 2022-11-12 15:26 | XRR_ITS ---
PROCEDURE INFORMATION: Exam: XR Sacrum and Coccyx, 2 or More Views Exam date and time: 11/12/2022 2:50 PM Age: 82 years old Clinical indication: Pain in coccyx area; Additional info: Evalute for fracture, h/o trauma with persistent pain TECHNIQUE: Imaging protocol: XR of the sacrum and coccyx, 2 or more views. COMPARISON: CT abdomen pelvis con [id number] 06/22/2020 12:27 PM FINDINGS: Bones/joints: Moderate degenerative changes of bilateral hip joints. Soft tissues: Vascular calcifications. XR/XR sacrum coccyx min 2V [id number] IMPRESSION: No acute abnormality.
--- NOTE | 2022-11-12 15:27 | XRR_ITS ---
PROCEDURE INFORMATION: Exam: XR Spine; Lumbar Exam date and time: 11/12/2022 2:56 PM Age: 82 years old Clinical indication: Pain: Low back pain, coccyx pain; Additional info: Evaluate for fracture TECHNIQUE: Imaging protocol: XR of the spine. Exam focused on the lumbar spine. Views: 1 view. 1 view. COMPARISON: OT XR lumbar spine 1V [id number] 05/29/2021 10:16 AM FINDINGS: Bones/joints: Degenerative changes of the spine. Vertebral body heights are maintained. Vasculature: Vascular calcifications. Soft tissues: Normal. XR/XR lumbar spine 1V port [id number] IMPRESSION: No acute abnormality.
--- NOTE | 2022-11-12 16:12 | PM.DCS ---
Discharge Providers Date of Admission: 11/09/22 19:34 Date of Discharge: November 12, 2022 Attending Provider at Admission: Vignesh Garibay MD Attending Provider at Discharge: Maricarmen Choi MD Primary Care Provider: Terence Rogers Diagnoses at Discharge Discharge Diagnosis (1) Acute respiratory failure with hypoxia: Status: Acute (2) Community acquired pneumonia: Status: Acute (3) Restrictive lung disease: Status: Acute (4) Acute exacerbation of chronic obstructive pulmonary disease: Status: Inactive (5) Atrial fibrillation: Status: Acute (6) CHF exacerbation: Status: Acute (7) Diastolic heart failure: Status: Inactive Qualifiers: Heart failure chronicity: chronic Qualified Code(s): I50.32 - Chronic diastolic (congestive) heart failure (8) Type 2 diabetes mellitus: Status: Inactive Qualifiers: Diabetes mellitus long term care phlebotomist insulin use: without long term care phlebotomist use Diabetes mellitus complication status: without complication Qualified Code(s): E11.9 - Type 2 diabetes mellitus without complications (9) Enterovirus infection, unspecified: Status: Acute Reason for Visit Reason for Visit: SOB Brief History: Vaibhav Ramsey is a 82 year old female with a past medical history of atrial fibrillation on Eliquis, history of insulin-dependent type 2 diabetes mellitus, hypothyroidism, restrictive lung disease, history of anxiety, who presents to [facility] due to increased shortness of breath, wheezing, productive cough.?She does report lower extremity edema, no orthopnea, no paroxysmal nocturnal dyspnea, no chest pain, no palpitations Hospital Course Hospital Course She was admitted to the hospital for : #Acute hypoxic respiratory failure -Multifactorial -Likely secondary to exacerbation of COPD, restrictive lung disease, pneumonia, CHF -s/p treatment with Rocephin, azithromycin, to complete course with po augmentin as outpatient -received Decadron iv, she is being discharged with prednisone taper -received Lasix therapy 40 IV twice daily which she is tolerated well, discharged on lasix 40mg po -She tested positive for rhinovorus/enterovirus -CT chest?Areas of ground-glass opacification in the upper lobe, middle lobe, and lower lobe. More extensive alveolar opacification and reticulonodular interstitial thickening in the lower lobes, greater on the left. -added cough suppressants UTI : based on abnormal UA, urine cx N/A , received empiric Rocephin She is much improved today, being discharged in stable condition. At discharge she requested Xrays of her lower back, stating that she recently sustained a fall and ankle injury and since then her lower backc has been hurting as well. These have been ordered, to be followed up as outpatient. Physical Exam Narrative: General: No acute distress, AO x3 HEENT: PERRLA, pupils bilaterally equal and reactive, pallors not present Chest: Normal vesicular breath sounds, no added sounds, equal good air entry bilaterally CVS: S1-S2 regular, no murmurs, no tachycardia, no gallops, no rubs Abdomen: Soft, nontender, no organomegaly, bowel sounds present Neuro: No focal deficits, no facial deformity, AO x3, power 5/5 in all limbs Discharge Data Studies Completed and Pending Completed Studies During Hospitalization Category Date Time Status CT chest wo con [id number] Routine Cat Scan 11/09/22 22:15 Completed XR chest 1V portable [id number] Stat Exams 11/09/22 17:35 Completed Pending at discharge Category Date Time Status XR lumbar spine 1 view portable [XR lumbar spine 1V Exams 11/12/22 15:27 Taken port [id number]] Routine XR sacrum coccyx min 2V [id number] Routine Exams 11/12/22 15:26 Taken Blood Culture Stat Lab 11/09/22 19:45 Results Radiology Impressions Chest X-Ray 11/09/22 17:35 IMPRESSION: 1. Fullness in the pulmonary vasculature suggesting volume overload in the lungs. 2. Incidental/nonacute findings are listed in the report. Chest CT 11/09/22 22:15 IMPRESSION: 1. Areas of ground-glass opacification in the upper lobe, middle lobe, and lower lobe. More extensive alveolar opacification and reticulonodular interstitial thickening in the lower lobes, greater on the left. Findings are better visualized compared with the prior chest x-ray done earlier on 11/09/2022. Findings are suspicious for pneumonia, including atypical organisms. Recommend clinical correlation. Recommend followup chest imaging to insure resolution of these findings. 2. Mild body wall edema. 3. Stable mediastinal lymphadenopathy. Possible metastatic foci cannot be ruled out. 4. Incidental/nonacute findings are listed in the report. COMMENTS: 1. Urgent results were discussed with VIGNESH Gonzalez on 11/09/2022 at 11:02 PM the CDT. 2. Consistent with the [employer]'s Incidental Findings Committee white paper (J Am Elvis Radiol 2017): For any incidental adrenal lesion greater than or equal to 1 cm but less than or equal to 4 cm classified in this report as benign, likely benign, or containing fat (including classification as an adenoma or myelolipoma), no follow-up imaging is recommended per consensus recommendations based on imaging criteria. Further lab evaluation could be pursued if warranted based on clinical findings. 3. Consistent with the [employer]'s Incidental Findings Committee white paper (J Am Elvis Radiol 2018): Any incidental renal lesion less than 1 cm or classified as too small to characterize, or any incidental cystic renal lesion characterized as simple-appearing, is likely benign. No follow-up imaging is recommended for these lesions per consensus recommendations based on imaging criteria. Laboratory Results WBC 6.4 10^3/uL (4.0-10.0) 11/12/22 04:25 RBC 3.12 10^6/uL (4.1-5.3) L 11/12/22 04:25 Hgb 8.9 g/dL (11.5-15.3) L 11/12/22 04:25 Hct 30.3 % (37.0-47.0) L 11/12/22 04:25 MCV 97.1 fl (81-99) 11/12/22 04:25 MCH 28.5 pg (28.0-34.0) 11/12/22 04:25 MCHC 29.4 g/dL (30.0-36.0) L 11/12/22 04:25 RDW 15.7 % (12.1-15.1) H 11/12/22 04:25 Plt Count 113 10^3/cmm (130-400) L 11/12/22 04:25 MPV 11.9 fL (7.4-10.4) H 11/12/22 04:25 Neut % (Auto) 94.3 % 11/12/22 04:25 Lymph % (Auto) 3.3 % 11/12/22 04:25 [place] % (Auto) 2.2 % 11/12/22 04:25 Eos % (Auto) 0.0 % 11/12/22 04:25 Baso % (Auto) 0.0 % 11/12/22 04:25 Neut # (Auto) 6.04 10^3/uL (1.8-7.7) 11/12/22 04:25 Lymph # (Auto) 0.2 10^3/uL (0.8-4.8) L 11/12/22 04:25 [place] # (Auto) 0.1 10^3/uL (0.2-0.9) L 11/12/22 04:25 Eos # (Auto) 0.0 10^3/uL (0.0-0.8) 11/12/22 04:25 Baso # (Auto) 0.0 10^3/uL (0.0-0.1) 11/12/22 04:25 Nucleated RBC % (auto) 0 % 11/12/22 04:25 Nucleated RBCs # 0.0 /100WBC 11/12/22 04:25 Sodium 141 mmol/L (136-145) 11/12/22 04:25 Potassium 4.5 mmol/L (3.5-5.1) 11/12/22 04:25 Chloride 105 mmol/L (98-107) 11/12/22 04:25 Carbon Dioxide 25 mmol/L (22-29) 11/12/22 04:25 Anion Gap 15.5 (5-19) 11/12/22 04:25 BUN 41 mg/dL (8-23) H 11/12/22 04:25 Creatinine 1.2 mg/dL (0.5-0.9) H 11/12/22 04:25 GFR Calculation Not Reportable 11/12/22 04:25 Glucose 221 mg/dL (65-115) H 11/12/22 04:25 POC Glucose 192 mg/dL (70-110) H 11/12/22 11:22 Estimat Average Glucose 131 11/10/22 04:26 Hemoglobin A1c 6.2 % (4.0-6.0) H 11/10/22 04:26 Calculated Osmolality 309 mOsm/kg (285-295) H 11/12/22 04:25 Calcium 8.9 mg/dL (8.5-10.5) 11/12/22 04:25 Total Bilirubin 0.2 mg/dL (0.15-1.2) 11/12/22 04:25 AST 10 U/L (0-32) 11/12/22 04:25 ALT < 5 U/L (0-33) 11/12/22 04:25 Alkaline Phosphatase 101 U/L (35-105) 11/12/22 04:25 Troponin T Baseline 32 ng/L (0-10) H 11/09/22 22:15 Troponin T 120 Minute 30.03 ng/L (0-10) H 11/10/22 02:02 Delta Troponin T -1.97 ABS# (0-10) L 11/10/22 02:02 Troponin T Hi Sens 6Hr 34.34 ng/L (0-10) H 11/10/22 04:26 Troponin T Hi Sens 6Hr Delta 2.34 ng/L (0-12) 11/10/22 04:26 C-Reactive Protein 81.2 mg/L (0.0-4.9) H 11/09/22 22:15 NT-Pro-B Natriuret Pep 8250 pg/mL (0-450) H 11/10/22 04:26 Total Protein 6.0 g/dL (6.6-8.7) L 11/12/22 04:25 Albumin 3.5 g/dL (3.5-5.2) 11/12/22 04:25 Globulin 2.5 g/dL (1.3-4.6) 11/12/22 04:25 Procalcitonin 1.71 ng/mL (0-0.5) H 11/09/22 22:15 TSH 0.89 uIU/mL (0.27-4.20) 11/10/22 04:26 Urine Color Dark yellow (Yellow) 11/09/22 19:19 Urine Appearance Sl cloudy (CLEAR) A 11/09/22 19:19 Urine pH 5 (5-7) 11/09/22 19:19 Ur Specific [place] 1.020 (1.005-1.030) 11/09/22 19:19 Urine Protein 3+ (Negative) H 11/09/22 19:19 Urine Glucose (UA) Norm (Normal) 11/09/22 19:19 Urine Ketones 1+ (Negative) H 11/09/22 19:19 Urine Blood Neg (Negative) 11/09/22 19:19 Urine Nitrate Negative (Negative) 11/09/22 19:19 Urine Bilirubin Neg (Negative) 11/09/22 19:19 Urine Urobilinogen Norm mg/dL (Negative) 11/09/22 19:19 Ur Leukocyte Esterase Trace (Negative) H 11/09/22 19:19 Urine RBC 0-4 /hpf (0-2) H 11/09/22 19:19 Urine WBC 5-10 /hpf (0-5) H 11/09/22 19:19 Ur Squamous Epith Cells 15-25 /hpf (0-5) H 11/09/22 19:19 Amorphous Sediment Not Reportable 11/09/22 19:19 Urine Bacteria Trace /hpf (NONE) 11/09/22 19:19 Nasal Influ A H1 2009 PCR Not detected (NOT DETECT) 11/10/22 01:00 Adenovirus (PCR) Not detected (NOT DETECT) 11/10/22 01:00 C. pneumoniae DNA (PCR) Not detected (NOT DETECT) 11/10/22 01:00 Coronavirus 229E (PCR) Not detected (NOT DETECT) 11/10/22 01:00 Human Metapneumovir PCR Not detected (NOT DETECT) 11/10/22 01:00 Influenza A (H1) PCR Not detected (NOT DETECT) 11/10/22 01:00 Influenza A (H3) PCR Not detected (NOT DETECT) 11/10/22 01:00 Influenza Type A (PCR) Not detected (NOT DETECT) 11/10/22 01:00 Influenza Type B (PCR) Not detected (NOT DETECT) 11/10/22 01:00 M. pneumoniae (PCR) Not detected (NOT DETECT) 11/10/22 01:00 Parainfluenza 1 (PCR) Not detected (NOT DETECT) 11/10/22 01:00 Parainfluenza 2 (PCR) Not detected (NOT DETECT) 11/10/22 01:00 Parainfluenza 3 (PCR) Not detected (NOT DETECT) 11/10/22 01:00 Parainfluenza 4 (PCR) Not detected (NOT DETECT) 11/10/22 01:00 RSV Type A (PCR) Not detected (NOT DETECT) 11/10/22 01:00 RSV Type B (PCR) Not detected (NOT DETECT) 11/10/22 01:00 Entero/Rhino (PCR) Detected (NOT DETECT) A 11/10/22 01:00 SARS-CoV-2 (PCR) Not detected (NOT DETECT) 11/10/22 01:00 SARS-CoV-2 Ag (Rapid) negative (Negative) 11/09/22 17:50 Vitals Last Vital Signs Temp 97.4 F L 11/12/22 12:00 Pulse 83 11/12/22 12:00 Resp 15 11/12/22 12:00 BP 107/50 11/12/22 12:00 Pulse Ox 97 11/12/22 12:00 O2 Del Method Nasal Cannula 11/12/22 12:00 O2 Flow Rate 3 11/12/22 11:48 Discharge Plan Discharge Patient Disposition: Home Condition: Stable Prescriptions: New benzonatate 100 mg Capsule 100 mg PO TID PRN (Reason: Cough) 10 Days Qty: 30 0RF dextromethorphan-guaifenesin 10-100 mg/5 mL Syrup 5 ml PO Q4H PRN (Reason: Cough) 15 Days Qty: 1 0RF cephalexin 500 mg capsule 500 mg PO BID 5 Days Qty: 10 0RF prednisone 10 mg tablet See Taper PO DIRECTED Qty: 30 0RF Taper: predniSONE 60-10 60 mg Daily for 2 Days and 0 Hour 50 mg Daily for 2 Days and 0 Hour 40 mg Daily for 2 Days and 0 Hour 30 mg Daily for 2 Days and 0 Hour 20 mg Daily for 2 Days and 0 Hour 10 mg Daily for 2 Days and 0 Hour Rx Instructions: see taper instructions Continued nitroglycerin 0.4 mg tablet, sublingual 0.4 mg SUBLINGUAL Q5M PRN (Reason: chest pain) 30 Days Qty: 30 3RF Rx Instructions: until response; do not exceed 3 doses per episode trazodone 50 mg tablet 50 mg PO BEDTIME sertraline 50 mg tablet 50 mg PO DAILY roflumilast [Daliresp] 250 mcg tablet 250 mcg PO DAILY Qty: 30 3RF spironolactone 25 mg tablet 25 mg PO DAILY albuterol sulfate 90 mcg/actuation HFA aerosol inhaler 2 puff inhalation Q6H PRN (Reason: Shortness Of Breath) naloxone 4 mg/actuation spray,non-aerosol 4 mg intranasal Q3M PRN (Reason: overdose) Rx Instructions: spray 1 dose into ONE nostril; alternate nostrils w each dose until help arrives (DME) post mastectomy Bras See Rx Instructions .Route .MEDSUPPLY Qty: 4 0RF Rx Instructions: As directed apixaban 2.5 mg tablet 2.5 mg PO BID Qty: 90 3RF Hold Instructions: Resume on 09/10/20. May restart this medicine today after 4:00 PM metoprolol tartrate 25 mg tablet 25 mg PO BID Qty: 180 3RF isosorbide mononitrate 60 mg tablet extended release 24 hr 60 mg PO DAILY Qty: 90 3RF magnesium hydroxide [Milk of Magnesia] 400 mg/5 mL Suspension 30 ml PO DAILY PRN (Reason: Constipation) omeprazole 40 mg capsule,delayed release(DR/EC) 40 mg PO BID sucralfate 100 mg/mL suspension 10 ml PO QID PRN (Reason: Heartburn) fluticasone propionate [Flonase Allergy Relief] 50 mcg/actuation spray,suspension 2 spray INTRANASAL QAM calcium carbonate-vitamin D3 [Calcium 600 + D(3)] 600 mg(1,500mg) -200 unit Tablet 1 tab PO DAILY sennosides-docusate sodium 8.6-50 mg Tablet 1 tab-cap PO BID PRN (Reason: Constipation) oxycodone-acetaminophen 10-325 mg tablet 1 tab PO Q8H PRN (Reason: Pain, Mild) carbidopa-levodopa 25-100 mg tablet 1 tab PO TID pravastatin 40 mg tablet 40 mg PO DAILY clonazepam 1 mg tablet 1 mg PO BEDTIME pramipexole 0.5 mg tablet 1 mg PO BEDTIME cyanocobalamin (vitamin B-12) 1,000 mcg/mL solution 1,000 mcg IM Q30D Rx Instructions: THE allopurinol 300 mg tablet 300 mg PO BID Lumigan 0.01 % drops 1 drp ophthalmic (eye) BEDTIME potassium chloride [Klor-Con 10] 10 mEq tablet extended release 20 meq PO DAILY zinc 10 mg Tablet 10 mg PO DAILY levothyroxine 100 mcg tablet 100 mcg PO DAILY fluticasone furoate-vilanterol [Breo Ellipta] 100-25 mcg/dose blister with device 1 inh INHALATION BID Lantus U-100 Insulin 100 unit/mL Solution 10 unit SUBCUT BEDTIME Changed furosemide 20 mg tablet 40 mg PO DAILY Qty: 30 0RF Discharge Orders: Discharge Order (Routine); Ordered 11/12/22 Ordered By: Maricarmen Choi Referrals: Terence Rogers [Primary Care Provider] - 11/16/22 9:00 am Discharge Diet: Usual diet Discharge Activity: Resume usual activity Patient Instructions: Cephalexin (By mouth), Benzonatate (By mouth), Prednisone (By mouth), Heart Failure (ED), Community Acquired Pneumonia (IP), CHF Stoplight, Opioid Safety, Pneumonia Stoplight Discharge Attestations Time Spent in Discharge Care*: greater than 30 min Status at Discharge: Cognitive status at discharge: cognitively intact, Behavioral status at discharge: cooperative, Quality Metrics Clinical Quality Measures [ No reported AMI, CVA or VTE this stay] Coding Level of Care Code Acute Code for g Fwd Diagnoses Acute respiratory failure with hypoxia J96.01 Community acquired pneumonia J18.9 Restrictive lung disease J98.4 Acute exacerbation of chronic obstructive pulmonary disease J44.1 Atrial fibrillation I48.91 CHF exacerbation I50.9 Diastolic heart failure I50.32 Heart failure chronicity: chronic Type 2 diabetes mellitus E11.9 Diabetes mellitus long term care phlebotomist insulin use: without penitentiary use Diabetes mellitus complication status: without complication Enterovirus infection, unspecified B34.1
== END 2022-11-12 16:22 | disposition home or self-care (01) | DRG 291 ==
LOC: ER 19:50 → MEDSURG 11-10 00:36
PROVIDERS: Family Medicine; Admitting Provider Family Medicine; Emergency Provider Emergency Medicine; PCP Family Medicine; Visit Provider Student in an Organized Health Care Education/Training Program
DX: I13.0 Hypertensive heart and chronic kidney disease with heart failure and stage 1 through stage 4 chronic kidney disease, or unspecified chronic kidney disease (principal); I50.33 Acute on chronic diastolic (congestive) heart failure; J18.9 Pneumonia, unspecified organism; J44.0 Chronic obstructive pulmonary disease with (acute) lower respiratory infection; N39.0 Urinary tract infection, site not specified; J44.1 Chronic obstructive pulmonary disease with (acute) exacerbation; I48.0 Paroxysmal atrial fibrillation; Z79.01 Long term (current) use of anticoagulants; Z79.4 Long term (current) use of insulin; E03.9 Hypothyroidism, unspecified; F41.9 Anxiety disorder, unspecified; N18.9 Chronic kidney disease, unspecified; E11.22 Type 2 diabetes mellitus with diabetic chronic kidney disease; B97.89 Other viral agents as the cause of diseases classified elsewhere; Z79.891 Long term (current) use of opiate analgesic; Z79.51 Long term (current) use of inhaled steroids; Z86.16 Personal history of COVID-19; K21.9 Gastro-esophageal reflux disease without esophagitis; Z87.891 Personal history of nicotine dependence; Z90.11 Acquired absence of right breast and nipple; Z95.0 Presence of cardiac pacemaker; Z86.711 Personal history of pulmonary embolism; M10.9 Gout, unspecified
CPT/HCPCS: 36415; 36416; 71045; 71250; 72020; 72220; 80048; 80053; 81001; 82962; 83036; 83880; 84145; 84443; 84484; 85025; 86140; 87040; 87426; 87486; 87581; 87633; 93005; 94640; 96365; 96366; 96367; 96372; 96375; 97110; 97161; 97165; 97535; 99285; C9113; J0456; J0696; J1100; J1815; J1940; J2930; J7050; J7613; J7626

== ENCOUNTER → 2022-11-23 10:59 | Outpatient (BNVA) | payer MEDICARE, MEDICAID, SELFPAY | PROVIDERS: PCP Family Medicine; Visit Provider Internal Medicine Cardiovascular Disease | DX: Z45.010 Encounter for checking and testing of cardiac pacemaker pulse generator [battery] (principal) | CPT/HCPCS: 93296 ==

== ENCOUNTER → 2023-02-09 11:15 | Outpatient (BNVA) | payer MEDICARE, MEDICAID, SELFPAY | PROVIDERS: PCP Family Medicine; Visit Provider Internal Medicine Cardiovascular Disease | DX: R06.02 Shortness of breath (principal); I48.91 Unspecified atrial fibrillation; I50.9 Heart failure, unspecified; I05.0 Rheumatic mitral stenosis; R42 Dizziness and giddiness; I10 Essential (primary) hypertension | CPT/HCPCS: 80048; 83880; 99214 ==

== ENCOUNTER 2023-02-18 13:01 | Outpatient (CLI) | payer MEDICARE, MEDICAID, SELFPAY ==
--- NOTE | 2023-02-18 13:45 | USCV_ITS ---
Vaibhav Ramsey Age: 82 Gender: F : 1940 Exam Date: 02/18/2023 13:53 Ordering Phys: Vanessa Gregorio MD ([email or web address]) Technologist: CT Exam Location: [facility] – [place] Indication: mr BP: 135 / 82 HR: 65 Rhythm: Sinus Technical Quality: Adequate MEASUREMENTS (Male / Female) Normal Values 2D ECHO LV Chamber Size 5.3 cm RV Chamber Size 4.2 cm LVOT Diameter 2.0 cm LV Ejection Fraction MOD 2C 47.8 % LV Ejection Fraction 2C AL 47.1 % LA Diameter 5.0 cm LA Width 4.9 cm LA Height 6.5 cm RA Width 3.5 cm RA Height 5.1 cm Aorta at Sinotubular Diameter 2.3 cm IVC Diameter 2.0 cm M-MODE Aortic Annulus Diameter 2.4 cm LA Ao Ratio MM 2.0 MV E Point Septal Separation 1.9 cm DOPPLER AV Peak Velocity 174.0 cm/s LVOT Peak Velocity 104.0 cm/s AV Area Cont Eq vti 2.5 cm squared AV Area Cont Eq pk 1.9 cm squared MV Peak Velocity 297.0 cm/s MV Area PHT 2.5 cm squared Mitral E to A Ratio 1.1 MV E' Velocity 115.5 cm/s Mitral E to MV E' Ratio 31.2 Mitral E to LV E' Lateral Ratio 36.8 Mitral E to LV E' Septal Ratio 27.1 TR Peak Velocity 338.3 cm/s TR Peak Gradient 45.8 mmHg TV Peak E Velocity 100.0 cm/s Right Atrial Pressure 3.0 mmHg Pulmonary Artery Systolic Pressu 48.8 mmHg PV Peak Velocity 131.0 cm/s FINDINGS Left Ventricle Moderate left ventricular hypertrophy. Normal left ventricular size and systolic function, EF 60 %. Grade III/IV diastolic dysfunction (restrictive filling pattern), severely elevated filling pressures. Right Ventricle The right ventricle is normal in size and function. Right Atrium The right atrium is normal in size. Left Atrium Moderately increased left atrial size. Mitral Valve Moderate to heavy mitral annular calcification.moderate-severe mitral valve regurgitation. Mitral valve peak velocity of 2.97 m/s with a peak gradient of 35 and a mean gradient of 17 mmHg Aortic Valve Thickened aortic valve. Tricuspid Valve [id number] tricuspid valve regurgitation. Estimated pulmonary artery peak systolic pressure 46 mmHg Pulmonic Valve Thickened pulmonic valve. Pericardium No pericardial effusion. Aorta Normal ascending aorta dimension. IVC The inferior vena cava appears normal. CONCLUSIONS Moderate left ventricular hypertrophy. Normal left ventricular size and systolic function, EF 60 %. Grade III/IV diastolic dysfunction (restrictive filling pattern), severely elevated filling pressures. Moderately increased left atrial size. Moderate to heavy mitral annular calcification.moderate-severe mitral valve regurgitation. Thickened aortic valve. [id number] tricuspid valve regurgitation. Estimated pulmonary artery peak systolic pressure 46 mmHg. Thickened pulmonic valve. There is no pericardial effusion. There are no intracardiac masses. The peak gradient across the mitral valve was 35 mmHg with a mean gradient of 17 mmHg The valve area calculation needs to be repeated Compared to the study from 07/07/2020, there seems to be worsening of mitral valve stenosis The valve area calculation needs to be repeated Dr Vanessa Gregorio MD FACC (Electronically Signed) Final Date: 18 February 2023 20:50 S
== END 2023-02-18 13:02 | disposition home or self-care (01) ==
LOC: RAD 13:03
PROVIDERS: PCP Family Medicine; Visit Provider Internal Medicine Cardiovascular Disease
DX: R06.09 Other forms of dyspnea (principal); I34.81 Nonrheumatic mitral (valve) annulus calcification; I35.8 Other nonrheumatic aortic valve disorders; I07.1 Rheumatic tricuspid insufficiency; I37.8 Other nonrheumatic pulmonary valve disorders; I34.0 Nonrheumatic mitral (valve) insufficiency; I34.2 Nonrheumatic mitral (valve) stenosis; R42 Dizziness and giddiness
CPT/HCPCS: 80048; 83880; 93306; 99214

== ENCOUNTER 2023-02-28 09:33 | Outpatient (CLI) | payer MEDICARE, MEDICAID, SELFPAY ==
[2023-02-28 10:43] LABS: Alanine Aminotransferase < 5 U/L (0-33); Albumin Level 3.5 g/dL (3.5-5.2); Alkaline Phosphatase 140 U/L (35-105); Blood Urea Nitrogen 33 mg/dL (8-23); Calcium 8.7 mg/dL (8.5-10.5); Carbon Dioxide 25 mmol/L (22-29); Chloride 108 mmol/L (98-107); Globulin 2.5 g/dL (1.3-4.6); Glucose 130 mg/dL (65-115); NT Pro B Type Natriuretic Pept 3334 pg/mL (0-450); Osmolality Calculated 305 mOsm/kg (285-295); Sodium 143 mmol/L (136-145); Total Bilirubin 0.2 mg/dL (0.15-1.2)
[2023-02-28 10:45] LABS: Anion Gap 14.4 (5-19); Aspartate Amino Transferase 18 U/L (0-32); Potassium 4.4 mmol/L (3.5-5.1)
== END 2023-02-28 09:34 | disposition home or self-care (01) ==
LOC: LAB 09:38
PROVIDERS: PCP Family Medicine; Visit Provider Internal Medicine Cardiovascular Disease
DX: I50.9 Heart failure, unspecified (principal); J96.01 Acute respiratory failure with hypoxia
CPT/HCPCS: 36415; 80053; 83880

== ENCOUNTER → 2023-03-08 15:18 | Outpatient (BNVA) | payer MEDICARE, MEDICAID, SELFPAY | PROVIDERS: PCP Family Medicine; Visit Provider Internal Medicine Cardiovascular Disease | DX: Z45.010 Encounter for checking and testing of cardiac pacemaker pulse generator [battery] (principal) | CPT/HCPCS: 93296 ==

== ENCOUNTER 2023-04-02 18:45 | Emergency (ER) | payer MEDICARE, MEDICAID, SELFPAY ==
[2023-04-02 18:48] VITALS: BP 131/96; PULSE 74; RESP 18; TEMP 36.3; O2SAT 98; BMI 23.1
--- NOTE | 2023-04-02 18:48 | ECG_ITS ---
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 Measurements Intervals [place] Rate: 66 P: 0 SD: 0 QRS: 95 QRSD: 137 T: 1 QT: 428 QTc: 450 Interpretive Statements SINUS RHYTHM WITH FIRST DEGREE AV BLOCK RIGHT BUNDLE BRANCH BLOCK [120+ ms QRS DURATION, UPRIGHT V1, 40+ ms S IN I/aVL/V4/V5/V6] Compared to ECG 11/10/2022 05:05:24 T-wave abnormality no longer present Possible ischemia no longer present Electronically Signed On 04-02-2023 20:29:11 CDT by Uziel Ramos M.D. [id number]
--- NOTE | 2023-04-02 18:48 | XRR_ITS ---
PROCEDURE INFORMATION: Exam: XR Chest Exam date and time: 04/02/2023 6:55 PM Age: 82 years old Clinical indication: Prior surgery; Surgery date: 6+ months; Surgery type: Pacer; Patient HX: General weakness. History of chf and breast cancer. ; Additional info: Chf, ble swelling TECHNIQUE: Imaging protocol: Radiologic exam of the chest. Views: 1 view. COMPARISON: CT chest con [id number] 11/09/2022 10:37 PM FINDINGS: Lungs: No consolidation or pulmonary edema. Pleural spaces: Unremarkable. No pleural effusion. No pneumothorax. Heart/Mediastinum: Heart is enlarged. There is pulmonary vascular distribution indicating elevated central venous pressure. Single electrode pacemaker projecting within the right ventricle unchanged. Bones/joints: Unremarkable for age. XR/XR chest 1V [id number] IMPRESSION: Cardiomegaly with elevated central venous pressure otherwise negative chest.
--- NOTE | 2023-04-02 18:56 | ED_ITS ---
HPI - Extremity Problem General: Chief complaint: Extremity Problem,Nontraumatic Stated complaint: WEAKNESS; ANNA MARIE LOW EXT SWELLING Time Seen by Provider: 04/02/23 18:47 Source: patient and EMS Mode of arrival: EMS Limitations: no limitations History of Present Illness: Patient presents to the emergency department today brought by EMS for evaluation and treatment of complaints of bilateral lower extremity edema. Patient has a history of CHF and often has edema but, patient states that most recently he has gotten more significant. Patient is also complaining of some generalized abdominal pain, difficulty urinating, and mid back pains. Patient indicates she has been taking her medications as prescribed. She denies any upper respiratory symptoms including cough or congestion acutely over the last few days. No fevers. EMS reports that the patient told them she has been eating a lot of soup recently and was unaware of sodium levels in soup. Review of Systems General: Reports: 10 or more systems reviewed and unremarkable except in HPI and below PFSH ED PFSH: Medical History Anemia -on iron supplementation Atypical chest pain Cardiac catheter[place] [address] Monaco. She had no significant coronary artery disease at that time. Bilateral renal cysts On multiple imaging modalities all appear simple. No further work-up wesley mmended December 2020 Bradycardia Chest pain Chronic anticoagulation Chronic back pain Chronic kidney disease -baseline Cr appears to be around 2-2.3 - Chronic kidney disease Chronic respiratory failure with hypoxia and hypercapnia COPD (chronic obstructive pulmonary disease) Uses 3 L [id number] and BiPAP at night COVID-19 Diastolic heart failure Diastolic heart failure Elevated troponin Former smoker GERD (gastroesophageal reflux disease) Gout History of pulmonary embolism -is on AC with Eliquis Hypertension Hypothyroidism Intermittent atrial fibrillation Normal coronary angiogram Cardiac angiogram done in September 2015 Osteoarthritis Pacemaker Paroxysmal A-fib Right bundle branch block Supraventricular tachycardia Symptomatic bradycardia Syncope Type 2 diabetes mellitus UTI (urinary tract infection) - Surgical History H/O colonoscopy 2019 H/O esophagogastroduodenoscopy (~04/2020) 2019 H/O hernia repair H/O left knee surgery H/O right mastectomy History of cholecystectomy History of tonsillectomy Tubal ligation status Family History Father CAD (coronary artery disease) Family history of premature coronary artery disease Hypertension Mother Cancer Chronic kidney disease (CKD) Hypertension Sister Hyperlipidemia Hypertension Daughter No problems noted. Other Diabetes Social History Smoking and tobacco status: former smoker Quit status (tobacco): has quit using tobacco Year quit tobacco: 1970 - 1PPD x 25 Years Alcohol intake: never Substance/Drug Use: never Caregiver/support person: Yes Lives independently: Yes Household members: family Housing: House Marital status: / Current occupational status: retired Do you think of yourself as: Straight/Heterosexual Physical Exam Const: COMMON NORMALS: no acute distress, patient oriented x3 and alert OTHER: Patient is pleasant, social. Answers her own history. HENMT: COMMON NORMALS: normocephalic, atraumatic, hearing grossly normal bilaterally, external ears normal, Normal external nose present, Normal nasal mucous membranes and turbinates present and moist oral mucous membranes HEAD & SCALP: normocephalic and atraumatic NOSE: Normal external nose present and Normal nasal mucous membranes and turbinates present EXTERNAL EAR: Yes external ears normal Eye: COMMON NORMALS: Equal, round and reactive pupils present, EOMs intact bilaterally and conjunctivae normal CONJUNCTIVA: Yes conjunctivae normal PUPIL: Yes Equal, round and reactive pupils present Neck/C-Spine: COMMON NORMALS: no JVD Lymph: LYMPHATIC: no lymphadenopathy noted Resp: COMMON NORMALS: normal respiratory effort, No retractions and No use of accessory muscles OTHER: Pulse ox 98% on room air Cardio: COMMON NORMALS: no JVD and regular rate RATE: regular rate : COMMON NORMALS: Yes no CVA tenderness BLADDER/KIDNEY EXAM: Yes no CVA tenderness Back/Pelvis: COMMON NORMALS: no CVA tenderness, thoracic and lumbar spine normal to inspection and thoraco-lumbar ROM normal Extremity: COMMON NORMALS: normal to inspection, full ROM and no pedal edema Neuro: COMMON NORMALS: patient oriented x3 SENSORIUM/ORIENTATION: Yes alert Skin: COMMON NORMALS: no rashes or lesions noted and turgor normal NARRATIVE SKIN EXAM: Patient with some mild bilateral lower extremity edema. Patient has near 1 pitting edema located primarily to the lateral portion of the ankles bilaterally. GENERAL SKIN EXAM: no rashes or lesions noted and turgor normal Course Vital Signs: Vital signs: Vital Signs Temperature 97.4 F L 04/02/23 19:06 Pulse Rate 72 04/02/23 21:27 Respiratory Rate 18 04/02/23 21:27 Blood Pressure 172/69 04/02/23 21:27 Pulse Oximetry 97 04/02/23 21:27 Oxygen Delivery Me thod Room Air 04/02/23 19:06 MDM - Extremity (Nontraumatic) Medical Decision Making Patient's lab work is generally unremarkable given the patient's typical baseline. Patient's hemoglobin is 9.9 but is stable from multiple previous counts. Patient has no signs of an elevated white blood cell count and, creatinine is within normal limits. Patient does have findings of urinary tract infection at this time however. Chest x-ray shows some vascular congestion and, she has a noticeable elevation in BNP from her typical, though not a significant jump. No pleural effusions noted on chest x-ray. Troponin stable. I did discuss the case with Dr. Montgomery as the patient did not have significantly el evated blood pressure readings and wanted to be very careful about dosing her IV Lasix. We agreed to start with 20 of Lasix IV. Patient seemed to do well with this so we discharged with instructions to add an extra 20 mg of Lasix for the next 3 days to treat acute, mild CHF flare. Patient was given antibiotics to continue as well for urinary tract infection. We went with doxycycline as a previous culture and sensitivity of her urine indicated sensitivity to tetracyclines and patient has several antibiotic allergies. Patient is to have follow-up with her primary care doctor the middle or end of next week for general recheck and repeat UA. However, went over strict return precautions for which patient needs to be seen and reevaluated back here in the emergency department. Patient verbalized understanding and agreement to treatment plan. Differential Diagnosis Likely lower extremity edema; Unlikely gout, cellulitis, superficial thrombophlebitis or deep vein thrombosis of lower extremity Lab Data 04/02/23 19:00 04/02/23 19:00 Radiology Impressions Chest X-Ray 04/02/23 18:48 IMPRESSION: Cardiomegaly with elevated central venous pressure otherwise negative chest. Laboratory Results WBC 9.17 10^3/uL (3.29-11.43) 04/02/23 19:00 RBC 3.37 10^6/uL (3.85-5.65) L 04/02/23 19:00 Hgb 9.90 g/dL (11.27-16.99) L 04/02/23 19:00 Hct 32.3 % (36-47) L 04/02/23 19:00 MCV 95.8 fl (85-98) 04/02/23 19:00 MCH 29.4 pg (27-33) 04/02/23 19: MCHC 30.7 g/dL (30-55) 04/02/23 19:00 RDW 15.2 % (12.1-15.1) H 04/02/23 19:00 Plt Count 149 10^3/cmm (157-399) L 04/02/23 19:00 MPV 9.9 fL (7.4-10.4) 04/02/23 19:00 Neut % (Auto) 81.4 % 04/02/23 19:00 Lymph % (Auto) 11.1 % 04/02/23 19:00 [place] % (Auto) 6.3 % 04/02/23 19:00 Eos % (Auto) 0.7 % 04/02/23 19:00 Baso % (Auto) 0.2 % 04/02/23 19:00 Neut # (Auto) 7.46 10^3/uL (1.8-7.7) 04/02/23 19:00 Lymph # (Auto) 1.0 10^3/uL (0.8-4.8) 04/02/23 19:00 [place] # (Auto) 0.6 10^3/uL (0.2-0.9) 04/02/23 19:00 Eos # (Auto) 0.1 10^3/uL (0.0-0.8) 04/02/23 19:00 Baso # (Auto) 0.0 10^3/uL (0.0-0.1) 04/02/23 19:00 Nucleated RBC % (auto) 0 % 04/02/23 19:00 Nucleated RBCs # 0.0 /100WBC 04/02/23 19:00 Sodium 137 mmol/L (136-145) 04/02/23 19:00 Potassium 3.8 mmol/L (3.5-5.1) 04/02/23 19:00 Chloride 106 mmol/L (98-107) 04/02/23 19:00 Carbon Dioxide 23 mmol/L (22-29) 04/02/23 19:00 Anion Gap 11.8 (5-19) 04/02/23 19:00 BUN 26 mg/dL (8-23) H 04/02/23 19:00 Creatinine 0.8 mg/dL (0.5-0.9) 04/02/23 19:00 GFR Calculation Not Reportable 04/02/23 19:00 Glucose 142 mg/dL (65-115) H 04/02/23 19:00 Calculated Osmolality 291 mOsm/kg (285-295) 04/02/23 19:00 Calcium 8.6 mg/dL (8.5-10.5) 04/02/23 19:00 Total Bilirubin 0.4 mg/dL (0.15-1.2) 04/02/23 19:00 AST 19 U/L (0-32) 04/02/23 19:00 ALT 9 U/L (0-33) 04/02/23 19:00 Alkaline Phosphatase 187 U/L (35-105) H 04/02/23 19:00 Troponin T Baseline 33 ng/L (0-10) H 04/02/23 19:00 Troponin T 120 Minute 31.60 ng/L (0-10) H 04/02/23 21:00 Delta Troponin T -1.40 ABS# (0-10) L 04/02/23 21:00 NT-Pro-B Natriuret Pep 5813 pg/mL (0-450) H 04/02/23 19:00 Total Protein 6.2 g/dL (6.6-8.7) L 04/02/23 19:00 Albumin 3.8 g/dL (3.5-5.2) 04/02/23 19:00 Globulin 2.4 g/dL (1.3-4.6) 04/02/23 19:00 Procalcitonin 0.08 ng/mL (0-0.5) 04/02/23 19:00 Urine Color Yellow (Yellow) 04/02/23 19:21 Urine Appearance Hazy (CLEAR) A 04/02/23 19:21 Urine pH 6 (5-7) 04/02/23 19:21 Ur Specific [place] 1.015 (1.005-1.030) 04/02/23 19:21 Urine Protein 3+ (Negative) H 04/02/23 19:21 Urine Glucose (UA) Norm (Normal) 04/02/23 19:21 Urine Ketones Negative (Negative) 04/02/23 19:21 Urine Blood Neg (Negative) 04/02/23 19:21 Urine Nitrate Negative (Negative) 04/02/23 19:21 Urine Bilirubin Neg (Negative) 04/02/23 19:21 Urine Urobilinogen Neg mg/dL (Negative) 04/02/23 19:21 Ur Leukocyte Esterase Negative (Negative) 04/02/23 19:21 Urine RBC Rare /hpf (0-2) 04/02/23 19:21 Urine WBC 10-15 /hpf (0-5) H 04/02/23 19:21 Ur Squamous Epith Cells 0-4 /hpf (0-5) H 04/02/23 19:21 Amorphous Sediment Not Reportable 04/02/23 19:21 Urine Bacteria 2+ /hpf (NONE) H 04/02/23 19:21 All radiology interpretation(s) finalized by discharge Discharge Plan Discharge Patient Disposition: Home Clinical Impression: Lower extremity edema, History of chronic CHF, UTI (urinary tract infection) Condition: Stable Prescriptions: New doxycycline hyclate 100 mg tablet 100 mg PO BID 10 Days Qty: 20 0RF No Action nitroglycerin 0.4 mg tablet, sublingual 0.4 mg SUBLINGUAL Q5M PRN (Reason: chest pain) 30 Days Qty: 30 3RF Rx Instructions: until response; do not exceed 3 doses per episode trazodone 50 mg tablet 50 mg PO BEDTIME sertraline 50 mg tablet 50 mg PO DAILY spironolactone 25 mg tablet 25 mg PO DAILY albuterol sulfate 90 mcg/actuation HFA aerosol inhaler 2 puff inhalation Q6H PRN (Reason: Shortness Of Breath) naloxone 4 mg/actuation spray,non-aerosol 4 mg intranasal Q3M PRN (Reason: overdose) Rx Instructions: spray 1 dose into ONE nostril; alternate nostrils w each dose until help arrives (DME) post mastectomy Bras See Rx Instructions .Route .MEDSUPPLY Qty: 4 0RF Rx Instructions: As directed apixaban 2.5 mg tablet 2.5 mg PO BID Qty: 90 3RF Hold Instructions: Resume on 09/10/20. May restart this medicine today after 4:00 PM metoprolol tartrate 25 mg tablet 25 mg PO BID Qty: 180 3RF isosorbide mononitrate 60 mg tablet extended release 24 hr 60 mg PO DAILY Qty: 90 3RF roflumilast [Daliresp] 250 mcg tablet 250 mcg PO DAILY Qty: 30 3RF magnesium hydroxide [Milk of Magnesia] 400 mg/5 mL Suspension 30 ml PO DAILY PRN (Reason: Constipation) omeprazole 40 mg capsule,delayed release(DR/EC) 40 mg PO BID sucralfate 100 mg/mL suspension 10 ml PO QID PRN (Reason: Heartburn) fluticasone propionate [Flonase Allergy Relief] 50 mcg/actuation spray,suspension 2 spray INTRANASAL QAM calcium carbonate-vitamin D3 [Calcium 600 + D(3)] 600 mg(1,500mg) -200 unit Tablet 1 tab PO DAILY sennosides-docusate sodium 8.6-50 mg Tablet 1 tab-cap PO BID PRN (Reason: Constipation) oxycodone-acetaminophen 10-325 mg tablet 1 tab PO Q8H PRN (Reason: Pain, Mild) carbidopa-levodopa 25-100 mg tablet 1 tab PO TID pravastatin 40 mg tablet 40 mg PO DAILY clonazepam 1 mg tablet 1 mg PO BEDTIME pramipexole 0.5 mg tablet 1 mg PO BEDTIME cyanocobalamin (vitamin B-12) 1,000 mcg/mL solution 1,000 mcg IM Q30D Rx Instructions: THE allopurinol 300 mg tablet 300 mg PO BID Lumigan 0.01 % drops 1 drp ophthalmic (eye) BEDTIME potassium chloride [Klor-Con 10] 10 mEq tablet extended release 20 meq PO DAILY zinc 10 mg Tablet 10 mg PO DAILY levothyroxine 100 mcg tablet 100 mcg PO DAILY fluticasone furoate-vilanterol [Breo Ellipta] 100-25 mcg/dose blister with device 1 inh INHALATION BID Lantus U-100 Insulin 100 unit/mL Solution 10 unit SUBCUT BEDTIME prednisone 10 mg tablet See Taper PO DIRECTED Qty: 30 0RF Taper: predniSONE 60-10 60 mg Daily for 2 Days and 0 Hour 50 mg Daily for 2 Days and 0 Hour 40 mg Daily for 2 Days and 0 Hour 30 mg Daily for 2 Days and 0 Hour 20 mg Daily for 2 Days and 0 Hour 10 mg Daily for 2 Days and 0 Hour Rx Instructions: see taper instructions furosemide 20 mg tablet 40 mg PO DAILY Qty: 30 0RF Discharge Orders: Discharge ED (Routine); Ordered 04/02/23 Ordered By: Naty Soto Referrals: Terence Rogers [Primary Care Provider] - Discharge Diet: Low Salt Discharge Activity: Increase activity as tolerated Patient Instructions: Heart Failure (ED), Urinary Tract Infection in Women (ED), Low-Sodium Diet (ED) Activity Restrictions/Additional Instructions: Chest x-ray showed no signs of fluid accumulation in the lungs however, your lab work shows a slight elevation in your BNP. This levels elevated when you have a slight worsening in your chronic CHF. I also think this is why you are accumulating more fluid in your lower extremities at this time. We provided you a very small amount of Lasix through your IV but would also like you to increase your daily Lasix dosing by 20 mg for the next 3 days. Carefully monitor your blood pressure during this time as it can cause decrease in blood pressure. If dizziness worsens or you notice low blood pressure readings, return back to your normal dosing schedule. Your urine also showed signs of urinary tract infection. After referring back to previous urine cultures we will treat with doxycycline as it has been shown to treat your previous UTIs in the past. Please follow-up with your primary care physician later this week for recheck of your blood pressure, lower extremity edema, and urine. If for any reason you have acute worsening you should be seen and evaluated back here in the ER. Coding Level of Care Code ED Study Manager for Patrizia Corral
[2023-04-02 19:06] VITALS: BP 170/66; PULSE 66; RESP 18; TEMP 36.3; O2SAT 98
[2023-04-02 19:09] LABS: Basophils % 0.2 %; Eosinophils # 0.1 10^3/uL (0.0-0.8); Eosinophils % 0.7 %; Hematocrit 32.3 % (36-47); Lymphocytes % 11.1 %; Mean Corpuscular HGB Conc 30.7 g/dL (30-55); Mean Corpuscular Hemoglobin 29.4 pg (27-33); Mean Corpuscular Volume 95.8 fl (85-98); Mean Platelet Volume 9.9 fL (7.4-10.4); Monocytes # 0.6 10^3/uL (0.2-0.9); Monocytes % 6.3 %; Neutrophils # 7.46 10^3/uL (1.8-7.7); Neutrophils % 81.4 %; Nucleated Red Blood Cells % 0 %; Platelet Count 149 10^3/cmm (157-399); Red Blood Count 3.37 10^6/uL (3.85-5.65); Red Cell Distribution Width 15.2 % (12.1-15.1); White Blood Count 9.17 10^3/uL (3.29-11.43)
[2023-04-02 19:31] LABS: Troponin(5th) Baseline 33 ng/L (0-10)
[2023-04-02 19:32] LABS: Alanine Aminotransferase 9 U/L (0-33); Albumin Level 3.8 g/dL (3.5-5.2); Alkaline Phosphatase 187 U/L (35-105); Anion Gap 11.8 (5-19); Aspartate Amino Transferase 19 U/L (0-32); Blood Urea Nitrogen 26 mg/dL (8-23); Calcium 8.6 mg/dL (8.5-10.5); Carbon Dioxide 23 mmol/L (22-29); Chloride 106 mmol/L (98-107); Globulin 2.4 g/dL (1.3-4.6); Glucose 142 mg/dL (65-115); Osmolality Calculated 291 mOsm/kg (285-295); Potassium 3.8 mmol/L (3.5-5.1); Sodium 137 mmol/L (136-145); Total Bilirubin 0.4 mg/dL (0.15-1.2); Total Protein 6.2 g/dL (6.6-8.7)
[2023-04-02 19:39] LABS: Procalcitonin 0.08 ng/mL (0-0.5)
[2023-04-02 19:42] LABS: Add Urine Culture? Yes; Add Urine Microscopic? YES; Bacteria Urine 2+ /hpf; Bilirubin Urine Neg (Negative); Blood Urine Neg (Negative); Glucose Urine UA Norm (Normal); Ketones Urine Negative (Negative); Leukocyte Esterase Urine Negative (Negative); Nitrate Urine Negative (Negative); Protein Urine 3+ (Negative); RBC Urine RARE /hpf (0-2); Specific Gravity, Urine 1.015 (1.005-1.030); Squamous Epithelial Cell Urine 0-4 /hpf (0-5); Urine Appearance Hazy (CLEAR); Urine Color Yellow (Yellow); Urobilinogen Urine Neg (Negative); pH Urine 6 (5-7)
[2023-04-02 19:46] LABS: NT Pro B Type Natriuretic Pept 5813 pg/mL (0-450)
[2023-04-02] MEDS: FUROsemide 10 mg/mL SDV 2mL 20 MG IVP (20:30)
[2023-04-02] MEDS: doxycycline 100 mg Tablet PO (21:14)
[2023-04-02 21:27] VITALS: BP 172/69; PULSE 72; RESP 18; O2SAT 97
== END 2023-04-02 21:20 | disposition home or self-care (01) ==
PROVIDERS: Emergency Provider Physician Assistant; PCP Family Medicine
DX: R60.0 Localized edema (principal); N39.0 Urinary tract infection, site not specified; Z79.4 Long term (current) use of insulin; Z87.891 Personal history of nicotine dependence; I13.0 Hypertensive heart and chronic kidney disease with heart failure and stage 1 through stage 4 chronic kidney disease, or unspecified chronic kidney disease; E11.22 Type 2 diabetes mellitus with diabetic chronic kidney disease; N18.9 Chronic kidney disease, unspecified; I50.9 Heart failure, unspecified; J44.9 Chronic obstructive pulmonary disease, unspecified; Z99.81 Dependence on supplemental oxygen; Z95.0 Presence of cardiac pacemaker
CPT/HCPCS: 36415; 71045; 80053; 81001; 83880; 84145; 84484; 85025; 87077; 87086; 87186; 93005; 96374; 99285; J1940

== ENCOUNTER 2023-08-19 21:14 | Emergency (ER) | payer MEDICARE, MEDICAID, SELFPAY ==
[2023-08-19 21:16] VITALS: BP 137/65; PULSE 74; RESP 16; TEMP 36.6; O2SAT 97; BMI 22.3
--- NOTE | 2023-08-19 21:24 | XRR_ITS ---
PROCEDURE INFORMATION: Exam: XR Chest Exam date and time: 08/19/2023 9:26 PM Age: 83 years old Clinical indication: Prior surgery; Surgery date: 6+ months; Surgery type: Pacemaker 2020; Patient HX: Dyspnea; SOB TECHNIQUE: Imaging protocol: Radiologic exam of the chest. Views: 1 view. COMPARISON: CT chest wo con [id number] 05/29/2023 9:27 PM FINDINGS: Tubes, catheters and devices: Stable left chest pacemaker. Lungs: Small airspace opacities in the left lung base, which likely represent atelectasis, less likely pneumonia. Small peripheral atelectasis in the right lung base. Pleural spaces: No pleural effusion. No pneumothorax. Heart/Mediastinum: Cardiac silhouette is mildly enlarged. Vasculature: Atherosclerotic calcifications in the thoracic aorta. No mediastinal widening. Bones/joints: No acute fractures. XR/XR chest 1V portable [id number] IMPRESSION: 1. Small airspace opacities in the left lung base, which likely represent atelectasis, less likely pneumonia. Small peripheral atelectasis in the right lung base. 2. Cardiac silhouette is mildly enlarged.
--- NOTE | 2023-08-19 21:25 | ECG_ITS ---
[facility] Test Date: 2023-08-19 Pat Name: Vaibhav Ramsey Department: Room: Gender: Female Second Mate: : 1940 Requested By: Rakan Montgomery Order Number: [id number] Rodolfo MD: Uziel Ramos M.D. Measurements Intervals [place] Rate: 70 P: 131 FL: 288 QRS: -70 QRSD: 186 T: 107 QT: 487 QTc: 528 Interpretive Statements ELECTRONIC VENTRICULAR PACEMAKER Compared to ECG 04/02/2023 19:08:27 Sinus rhythm no longer present First degree AV block no longer present Right bundle-branch block no longer present Electronically Signed On 08-20-2023 5:54:36 TELEPHONE ORDER CLERK ROOM SERVICE by Uziel Ramos M.D. [id number]
[2023-08-19 21:38] LABS: Basophils % 0.5 %; Eosinophils # 0.1 10^3/uL (0.0-0.8); Eosinophils % 1.4 %; Hematocrit 31.7 % (36-47); Lymphocytes # 1.1 10^3/uL (0.8-4.8); Lymphocytes % 17.2 %; Mean Corpuscular HGB Conc 30.9 g/dL (30-55); Mean Corpuscular Hemoglobin 29.8 pg (27-33); Mean Corpuscular Volume 96.4 fl (85-98); Mean Platelet Volume 12.4 fL (7.4-10.4); Monocytes # 0.6 10^3/uL (0.2-0.9); Monocytes % 9.5 %; Neutrophils # 4.47 10^3/uL (1.8-7.7); Neutrophils % 71.1 %; Nucleated Red Blood Cells % 0 %; Platelet Count 107 10^3/cmm (157-399); Red Blood Count 3.29 10^6/uL (3.85-5.65); Red Cell Distribution Width 16.6 % (12.1-15.1); White Blood Count 6.29 10^3/uL (3.29-11.43)
--- NOTE | 2023-08-19 21:46 | ED_ITS ---
HPI - SOB/Dyspnea 2 General: Chief Complaint: Shortness of Breath/Dyspnea Stated Complaint: SOB Time Seen by Provider: 08/19/23 21:19 History of Present Illness: HPI Narrative: Patient brought in by EMS with complaints of shortness of breath, worsening over the last 3 days. Patient is normally on 40 mg Lasix daily but over the last 3 days son has increased to 80 mg daily. Patient says she hardly produces any urine and that her feet are very swollen compared to normal. Patient normally wears 3 L of oxygen at all times. Patient was given albuterol and nebulizer treatment on route. Upon arrival patient is on 2 L of oxygen and her oxygen saturation is 97%. Review of Systems 2 General: Reports: 10 or more systems reviewed and unremarkable except in HPI and below PFSH ED 2 PFSH: Medical History Bilateral renal cysts On multiple imaging modalities all appear simple. No further work-up recommended December 2020 Pacemaker Right bundle branch block Supraventricular tachycardia COVID-19 Elevated troponin Chest pain Chronic respiratory failure with hypoxia and hypercapnia GERD (gastroesophageal reflux disease) Atypical chest pain Cardiac [place] [address] [place]. She had no significant coronary artery disease at that time. Chronic kidney disease Diastolic heart failure Osteoarthritis Syncope Chronic kidney disease -baseline Cr appears to be around 2-2.3 - Symptomatic bradycardia UTI (urinary tract infection) - Bradycardia Anemia -on iron supplementation Intermittent atrial fibrillation COPD (chronic obstructive pulmonary disease) Uses 3 L [id number] and BiPAP at night Gout Former smoker Normal coronary angiogram Cardiac angiogram done in September 2015 Chronic back pain History of pulmonary embolism -is on AC with Eliquis Hypothyroidism Type 2 diabetes mellitus Hypertension Diastolic heart failure Chronic anticoagulation Paroxysmal A-fib Surgical History H/O right mastectomy History of tonsillectomy H/O hernia repair H/O colonoscopy 2019 H/O esophagogastroduodenoscopy (~04/2020) 2019 H/O left knee surgery Tubal ligation status History of cholecystectomy Family History Father CAD (coronary artery disease) Family history of premature coronary artery disease Hypertension Mother Cancer Chronic kidney disease (CKD) Hypertension Sister Hyperlipidemia Hypertension Daughter No problems noted. Other Diabetes Social History Smoking and tobacco/nicotine status: former use of tobacco/nicotine Quit status (tobacco/nicotine): has quit using Year quit tobacco: 1971 - 1PPD x 25 Years Alcohol intake: never Substance/Drug Use: never Caregiver/support person: Yes Lives independently: Yes Household members: family Housing: House Marital status: / Current occupational status: retired Do you think of yourself as: Straight/Heterosexual Physical Exam 2 Const: COMMON NORMALS: no acute distress, average body habitus, patient oriented x3, no limitations, healthy appearing, alert and well nourished HENMT: COMMON NORMALS: normocephalic, atraumatic, hearing grossly normal bilaterally, external ears normal, Normal external nose present, moist oral mucous membranes and oropharynx normal HEAD & SCALP: normocephalic and atraumatic NOSE: Normal external nose present EXTERNAL EAR: Yes external ears normal Neck/C-Spine: COMMON NORMALS: no JVD Chest: COMMONS NORMALS: normal inspection of the chest and normal palpation of entire chest wall Resp: COMMON NORMALS: normal respiratory effort, No retractions, No use of accessory muscles and clear to auscultation bilaterally AUSCULTATION: clear to auscultation bilaterally Cardio: COMMON NORMALS: no JVD, regular rate, regular rhythm, S1 normal heart sound present, S2 normal heart sound present, No gallops present (Cardio), No murmurs present (Cardio) and No rub (Cardio) RATE: regular rate RHYTHM: r egular rhythm HEART SOUNDS: S1 normal heart sound present and S2 normal heart sound present GI: COMMON NORMALS: Normal to inspection, nondistended, normoactive bowel sounds present, Soft to palpation, non-tender, No hepatosplenomegaly present and no masses PALPATION: Yes Soft to palpation and Yes No hepatosplenomegaly present Extremity: NARRATIVE EXTREMITY EXAM: 2+ pitting edema bilateral lower extremi ties least to the knees Neuro: COMMON NORMALS: patient oriented x3 SENSORIUM/ORIENTATION: Yes alert Course 2 Vital Signs: Vital signs: Vital Signs Temperature 97.9 F 08/19/23 21:16 Pulse Rate 74 08/19/23 21:16 Respiratory Rate 16 08/19/23 21:16 Blood Pressure 137/65 08/19/23 21:16 Pulse Oximetry 97 08/19/23 21:16 Oxygen Delivery Me thod Nasal Cannula 08/19/23 21:16 Oxygen Flow Rate 2 08/19/23 21:16 MDM - SOB/Dyspnea Medical Decision Making Patient presented with shortness of breath on 2 L of oxygen even though she wears 3 L of oxygen at home. Lab work was obtained which showed hemoglobin hematocrit of 9.8/31.7, BUN/creatinine of 39/1.0. Chest x-ray showed atelectasis, serial troponin showed delta of 0.8. Patient was given an additional 60 mg Lasix IV which produced good diuresis. Patient was resting comfortably in bed upon reexamination. Patient will be placed on metolazone for 3 days along with her Lasix for additional diuresis. Patient should follow-up with her PCP for further evaluation and treatment. Lab Data 08/19/23 21:33 08/19/23 21:33 Labs/Radiology: Radiology Impressions Chest X-Ray 08/19/23: IMPRESSION: 1. Small airspace opacities in the left lung base, which likely represent atelectasis, less likely pneumonia. Small peripheral atelectasis in the right lung base. 2. Cardiac silhouette is mildly enlarged. Laboratory Results WBC 6.29 10^3/uL (3.29-11.43) 08/19/23: RBC 3.29 10^6/uL (3.85-5.65) L 08/19/23 21:33 Hgb 9.80 g/dL (11.27-16.99) L 08/19/23: Hct 31.7 % (36-47) L 08/19/23 21: MCV 96.4 fl (85-98) 08/19/23 21: MCH 29.8 pg (27-33) 08/19/23 21: MCHC 30.9 g/dL (30-55) 08/19/23 21: RDW 16.6 % (12.1-15.1) H 08/19/23 21:33 Plt Count 107 10^3/cmm (157-399) L 08/19/23 21: MPV 12.4 fL (7.4-10.4) H 08/19/23 21: Neut % (Auto) 71.1 % 08/19/23 21: Lymph % (Auto) 17.2 % 08/19/23 21:33 [place] % (Auto) 9.5 % 08/19/23 21: Eos % (Auto) 1.4 % 08/19/23 21: Baso % (Auto) 0.5 % 08/19/23 21:33 Neut # (Auto) 4.47 10^3/uL (1.8-7.7) 08/19/23 21: Lymph # (Auto) 1.1 10^3/uL (0.8-4.8) 08/19/23 21: [place] # (Auto) 0.6 10^3/uL (0.2-0.9) 08/19/23 21: Eos # (Auto) 0.1 10^3/uL (0.0-0.8) 08/19/23 21: Baso # (Auto) 0.0 10^3/uL (0.0-0.1) 08/19/23 21: Nucleated RBC % (auto) 0 % 08/19/23 21: Nucleated RBCs # 0.0 /100WBC 08/19/23 21:33 Sodium 146 mmol/L (136-145) H 08/19/23 21:33 Potassium 3.8 mmol/L (3.5-5.1) 08/19/23 21: Chloride 111 mmol/L (98-107) H 08/19/23 21: Carbon Dioxide 24 mmol/L (22-29) 08/19/23 21:33 Anion Gap 14.8 (5-19) 08/19/23 21:33 BUN 39 mg/dL (8-23) H 08/19/23 21:33 Creatinine 1.0 mg/dL (0.5-0.9) H 08/19/23 21:33 GFR Calculation Not Reportable 08/19/23 21:33 Glucose 123 mg/dL (65-115) H 08/19/23 21:33 Calculated Osmolality 313 mOsm/kg (285-295) H 08/19/23 21:33 Calcium 8.0 mg/dL (8.5-10.5) L 08/19/23 21:33 Magnesium 1.4 mg/dL (1.7-2.3) L 08/19/23 21:33 Total Bilirubin 0.3 mg/dL (0.15-1.2) 08/19/23 21:33 AST 21 U/L (0-32) 08/19/23 21:33 ALT < 5 U/L (0-33) 08/19/23 21:33 Alkaline Phosphatase 188 U/L (35-105) H 08/19/23 21:33 Troponin T Baseline 39 ng/L (0-10) H 08/19/23 21:33 Troponin T 120 Minute 38.16 ng/L (0-10) H 08/19/23 23:15 Delta Troponin T -0.84 ABS# (0-10) L 08/19/23 23:15 NT-Pro-B Natriuret Pep 8116 pg/mL (0-450) H 08/19/23 21:33 Total Protein 5.6 g/dL (6.6-8.7) L 08/19/23 21:33 Albumin 3.4 g/dL (3.5-5.2) L 08/19/23 21:33 Globulin 2.2 g/dL (1.3-4.6) 08/19/23 21:33 All radiology interpretation(s) finalized by discharge EKG Data EKG 1: I personally reviewed and interpreted this EKG as follows: EKG Interpretation Date: 08/19/23 EKG interpretation time: 21:21 Prior EKG tracings: not available for review Interpretation: Ventricular rate 70 bpm, OH interval 288, QRS duration 186, QTc of 508, electronic ventricular pacemaker Discharge Plan Discharge Patient Disposition: Home Clinical Impression: Shortness of breath, Hypomagnesemia Acute exacerbation of CHF (congestive heart failure) Qualifiers: Heart failure type: unspecified Qualified Code(s): I50.9 - Heart failure, unspecified Condition: Stable Prescriptions: New metolazone 5 mg tablet 5 mg PO DAILY Qty: 5 0RF No Action nitroglycerin 0.4 mg tablet, sublingual 0.4 mg SUBLINGUAL Q5M PRN (Reason: chest pain) 30 Days Qty: 30 3RF Rx Instructions: until response; do not exceed 3 doses per episode trazodone 50 mg tablet 50 mg PO BEDTIME sertraline 50 mg tablet 50 mg PO DAILY Breztri Aerosphere 160-9-4.8 mcg/actuation HFA aerosol inhaler 2 inh inhalation BID Qty: 10.7 3RF spironolactone 25 mg tablet 25 mg PO DAILY albuterol sulfate 90 mcg/actuation HFA aerosol inhaler 2 puff inhalation Q6H PRN (Reason: Shortness Of Breath) naloxone 4 mg/actuation spray,non-aerosol 4 mg intranasal Q3M PRN (Reason: overdose) Rx Instructions: spray 1 dose into ONE nostril; alternate nostrils w each dose until help arrives (DME) post mastectomy Bras See Rx Instructions .Route .MEDSUPPLY Qty: 4 0RF Rx Instructions: As directed apixaban 2.5 mg tablet 2.5 mg PO BID Qty: 90 3RF Hold Instructions: Resume on 09/10/20. May restart this medicine today after 4:00 PM isosorbide mononitrate 60 mg tablet extended release 24 hr 60 mg PO DAILY Qty: 90 3RF roflumilast [Daliresp] 250 mcg tablet 250 mcg PO DAILY Qty: 30 3RF metoprolol tartrate 25 mg tablet See Rx Instructions .ROUTE .COMPLEX Qty: 60 0RF Dose Instruction: Take 1 tablet by mouth twice daily Rx Instructions: Take 1 tablet by mouth twice daily magnesium hydroxide [Milk of Magnesia] 400 mg/5 mL Suspension 30 ml PO DAILY PRN (Reason: Constipation) omeprazole 40 mg capsule,delayed release(DR/EC) 40 mg PO BID sucralfate 100 mg/mL suspension 10 ml PO QID PRN (Reason: Heartburn) fluticasone propionate [Flonase Allergy Relief] 50 mcg/actuation spray,suspension 2 spray INTRANASAL QAM calcium carbonate-vitamin D3 [Calcium 600 + D(3)] 600 mg(1,500mg) -200 unit Tablet 1 tab PO DAILY sennosides-docusate sodium 8.6-50 mg Tablet 1 tab-cap PO BID PRN (Reason: Constipation) oxycodone-acetaminophen 10-325 mg tablet 1 tab PO Q8H PRN (Reason: Pain, Mild) carbidopa-levodopa 25-100 mg tablet 1 tab PO TID pravastatin 40 mg tablet 40 mg PO DAILY clonazepam 1 mg tablet 1 mg PO BEDTIME pramipexole 0.5 mg tablet 1 mg PO BEDTIME cyanocobalamin (vitamin B-12) 1,000 mcg/mL solution 1,000 mcg IM Q30D Rx Instructions: 15 OF THE allopurinol 300 mg tablet 300 mg PO BID Lumigan 0.01 % drops 1 drp ophthalmic (eye) BEDTIME potassium chloride [Klor-Con 10] 10 mEq tablet extended release 20 meq PO DAILY zinc 10 mg Tablet 10 mg PO DAILY levothyroxine 100 mcg tablet 100 mcg PO DAILY Lantus U-100 Insulin 100 unit/mL Solution 10 unit SUBCUT BEDTIME furosemide 20 mg tablet 40 mg PO DAILY Qty: 30 0RF Discharge Orders: Discharge ED (Routine); Ordered 08/20/23 Ordered By: Rakan Montgomery Referrals: Terence Rogers [Primary Care Provider] - 1 week Patient Instructions: Dependent Edema, Congestive Heart Failure Activity Restrictions/Additional Instructions: Your test in ER showed you may be overloaded with fluid. Will be placed on additional diuretic along with your Lasix to take for the next 5 days to help you get rid of this extra fluid. He will be sent to [facility]. Please follow-up with your family practice doctor within the next 7 days for further evaluation and treatment. If your symptoms worsen please return to the ER. Coding Level of Care Code ED Therapy Assistant for Patrizia Corral
[2023-08-19 21:56] LABS: Troponin(5th) Baseline 39 ng/L (0-10)
[2023-08-19 22:16] LABS: Alanine Aminotransferase < 5 U/L (0-33); Albumin Level 3.4 g/dL (3.5-5.2); Alkaline Phosphatase 188 U/L (35-105); Aspartate Amino Transferase 21 U/L (0-32); Blood Urea Nitrogen 39 mg/dL (8-23); Carbon Dioxide 24 mmol/L (22-29); Chloride 111 mmol/L (98-107); Globulin 2.2 g/dL (1.3-4.6); Glucose 123 mg/dL (65-115); Magnesium 1.4 mg/dL (1.7-2.3); NT Pro B Type Natriuretic Pept 8116 pg/mL (0-450); Osmolality Calculated 313 mOsm/kg (285-295); Sodium 146 mmol/L (136-145); Total Bilirubin 0.3 mg/dL (0.15-1.2); Total Protein 5.6 g/dL (6.6-8.7)
[2023-08-19 22:19] LABS: Anion Gap 14.8 (5-19); Potassium 3.8 mmol/L (3.5-5.1)
[2023-08-19] MEDS: magnesium sulfate premix 1 GM/100 ML PIGGYBACK IV (22:55)
[2023-08-19] MEDS: FUROsemide 10 mg/mL SDV 4mL 40 MG IVP (22:55)
--- NOTE | 2023-08-19 23:25 | ECG_ITS ---
[facility] Test Date: 2023-08-19 Pat Name: Vaibhav Ramsey Department: Room: Gender: Female Nurse Practitioner Physicians Assistant: : 1940 Requested By: Rakan Montgomery Order Number: [id number] Rodolfo MD: Uziel Ramos M.D. Measurements Intervals [place] Rate: 70 P: 131 MT: 288 QRS: -70 QRSD: 186 T: 107 QT: 487 QTc: 528 Interpretive Statements ELECTRONIC VENTRICULAR PACEMAKER ABNORMAL RHYTHM ECG Compared to ECG 04/02/2023 19:08:27 Sinus rhythm no longer present First degree AV block no longer present Right bundle-branch block no longer present Electronically Signed On 08-20-2023 5:59:43 SSIS SSRS DEVELOPER by Uziel Ramos M.D. [id number] f
[2023-08-19 23:50] LABS: Troponin 5 2HR 38.16 ng/L (0-10)
[2023-08-19 23:59] LABS: Troponin 5 2HR Delta -0.84 ABS# (0-10)
== END 2023-08-20 00:31 | disposition home or self-care (01) ==
PROVIDERS: Emergency Provider Emergency Medicine; PCP Family Medicine
DX: R06.02 Shortness of breath (principal); E83.42 Hypomagnesemia; Z79.4 Long term (current) use of insulin; Z87.891 Personal history of nicotine dependence; Z95.0 Presence of cardiac pacemaker; I13.0 Hypertensive heart and chronic kidney disease with heart failure and stage 1 through stage 4 chronic kidney disease, or unspecified chronic kidney disease; E11.22 Type 2 diabetes mellitus with diabetic chronic kidney disease; N18.9 Chronic kidney disease, unspecified; I50.9 Heart failure, unspecified; J44.9 Chronic obstructive pulmonary disease, unspecified; Z99.81 Dependence on supplemental oxygen
CPT/HCPCS: 36415; 71045; 80053; 83735; 83880; 84484; 85025; 93005; 96374; 96375; 99285; J1940; J3475

== ENCOUNTER → 2023-08-23 08:53 | Outpatient (BNVA) | payer MEDICARE, MEDICAID, SELFPAY | PROVIDERS: PCP Family Medicine; Visit Provider Nurse Practitioner Family | DX: I48.0 Paroxysmal atrial fibrillation (principal); I13.0 Hypertensive heart and chronic kidney disease with heart failure and stage 1 through stage 4 chronic kidney disease, or unspecified chronic kidney disease; I50.33 Acute on chronic diastolic (congestive) heart failure; E11.22 Type 2 diabetes mellitus with diabetic chronic kidney disease; N18.9 Chronic kidney disease, unspecified; Z79.4 Long term (current) use of insulin; Z95.0 Presence of cardiac pacemaker; Z79.01 Long term (current) use of anticoagulants; Z87.891 Personal history of nicotine dependence; Z86.711 Personal history of pulmonary embolism | CPT/HCPCS: 36415; 80048; 83880; 99214 ==

== ENCOUNTER → 2023-09-21 23:08 | Outpatient (BNVA) | payer MEDICARE, MEDICAID, SELFPAY | PROVIDERS: PCP Family Medicine; Visit Provider Internal Medicine Cardiovascular Disease | DX: Z45.010 Encounter for checking and testing of cardiac pacemaker pulse generator [battery] (principal) | CPT/HCPCS: 93296 ==

== ENCOUNTER 2023-09-26 13:20 | Emergency (ER) | payer MEDICARE, MEDICAID, SELFPAY ==
[2023-09-26] VITALS (8 sets, daily range): BP systolic 91–107; BP diastolic 45–66; PULSE 60–76; RESP 16; TEMP 36.3; O2SAT 96–100
--- NOTE | 2023-09-26 13:27 | XRR_ITS ---
PROCEDURE INFORMATION: Exam: XR Chest Exam date and time: 09/26/2023 1:47 PM Age: 83 years old Clinical indication: Pain; Angina pectoris; Additional info: Chest pain TECHNIQUE: Imaging protocol: Radiologic exam of the chest. Views: 1 view. COMPARISON: CR (CHEST, ) 08/19/2023 9:26 PM FINDINGS: Tubes, catheters and devices: Single lead pacemaker enters from the left and terminates in the right ventricle. Lungs: Mild interstitial prominence. Mild linear atelectasis in the left. Pleural spaces: Unremarkable. No pleural effusion. No pneumothorax. Heart/Mediastinum: See Vasculature finding. Vasculature: Mild cardiomegaly and uncoiling of the thoracic aorta. Bones/joints: Unremarkable. XR/XR chest 1V [id number] IMPRESSION: No acute cardiopulmonary disease.
--- NOTE | 2023-09-26 13:28 | ECG_ITS ---
[facility] Test Date: 2023-09-26 Pat Name: Vaibhav Ramsey Department: Room: Gender: Female Progressive Care Manager: : 1940 Requested By: Isabel Rubin Order Number: [id number] Rodolfo MD: Vanessa Gregorio M.D. Measurements Intervals [place] Rate: 76 P: 0 [place]: 0 QRS: -77 QRSD: 198 T: 102 QT: 497 QTc: 559 Interpretive Statements ELECTRONIC VENTRICULAR PACEMAKER ABNORMAL RHYTHM ECG Compared to ECG 08/19/2023 21:21:17 No significant changes Electronically Signed On 09-26-2023 18:54:16 CDT by Vanessa Gregorio M.D. [id number]
[2023-09-26 13:48] LABS: Basophils % 0.5 %; Eosinophils # 0.1 10^3/uL (0.0-0.8); Lymphocytes % 16.5 %; Mean Corpuscular Hemoglobin 29.7 pg (27-33); Mean Corpuscular Volume 99.1 fl (85-98); Mean Platelet Volume 11.3 fL (7.4-10.4); Monocytes # 0.4 10^3/uL (0.2-0.9); Neutrophils # 4.32 10^3/uL (1.8-7.7); Neutrophils % 73.5 %; Nucleated Red Blood Cells % 0 %; Platelet Count 121 10^3/cmm (157-399); Red Blood Count 3.23 10^6/uL (3.85-5.65); Red Cell Distribution Width 15.8 % (12.1-15.1); White Blood Count 5.88 10^3/uL (3.29-11.43)
--- NOTE | 2023-09-26 14:05 | ED_ITS ---
HPI - Chest Pain 2 General: Chief Complaint: Chest Pain Stated Complaint: general weakness Time Seen by Provider: 09/26/23 13:22 History of Present Illness: 83-year-old female with a history of cor onary artery disease, coronary artery disease, atrial fibrillation on Eliquis who presents to the emergency room with chest pains. She says she has been feeling very weak. She has had episodes of some chest pain. Describes a tightness in her chest. No fevers. No cough. No abdominal pain. No nausea or vomiting. No diaphoresis. No lower extremity swelling. Review of Systems 2 Narrative: Constitutional symptoms: Negative except as documented in HPI. Skin symptoms: Negative except as documented in HPI. Eye symptoms: Negative except as documented in HPI. ENMT symptoms: Negative except as documented in HPI. Respiratory symptoms: Negative except as documented in HPI. Cardiovascular symptoms: Negative except as documented in HPI. Gastrointestinal symptoms: Negative except as documented in HPI. Genitourinary symptoms: Negative except as documented in HPI. Musculoskeletal symptoms: Negative except as documented in HPI. Neurologic symptoms: Negative except as documented in HPI. Psychiatric symptoms: Negative except as documented in HPI. Endocrine symptoms: Negative except as documented in HPI. PFSH ED 2 PFSH: Medical History Bilateral renal cysts On multiple imaging modalities all appear simple. No further work-up recommended December 2020 Pacemaker Right bundle branch block Supraventricular tachycardia COVID-19 Elevated troponin Chest pain Chronic respiratory failure with hypoxia and hypercapnia GERD (gastroesophageal reflux disease) Atypical chest pain Cardiac [place] [address] [place]. She had no significant coronary artery disease at that time. Chronic kidney disease Diastolic heart failure Osteoarthritis Syncope Chronic kidney disease -baseline Cr appears to be around 2-2.3 - Symptomatic bradycardia UTI (urinary tract infection) - Bradycardia Anemia -on iron supplementation Intermittent atrial fibrillation COPD (chronic obstructive pulmonary disease) Uses 3 L [id number] and BiPAP at night Gout Former smoker Normal coronary angiogram Cardiac angiogram done in September 2015 Chronic back pain History of pulmonary embolism -is on AC with Eliquis Hypothyroidism Type 2 diabetes mellitus Hypertension Diastolic heart failure Chronic anticoagulation Paroxysmal A-fib Surgical History H/O right mastectomy History of tonsillectomy H/O hernia repair H/O colonoscopy 2019 H/O esophagogastroduodenoscopy (~04/2020) 2019 H/O left knee surgery Tubal ligation status History of cholecystectomy Family History Father CAD (coronary artery disease) Family history of premature coronary artery disease Hypertension Mother Cancer Chronic kidney disease (CKD) Hypertension Sister Hyperlipidemia Hypertension Daughter No problems noted. Other Diabetes Social History Smoking and tobacco/nicotine status: former use of tobacco/nicotine Quit status (tobacco/nicotine): has quit using Year quit tobacco: 1970 - 1PPD x 25 Years Alcohol intake: never Substance/Drug Use: never Caregiver/support person: Yes Lives independently: Yes Household members: family Housing: House Marital status: / Current occupational status: retired Do you think of yourself as: Straight/Heterosexual Physical Exam 2 Narrative: EXAM NARRATIVE: General: Alert, no acute distress. Skin: Warm, dry. Head: Normocephalic, atraumatic. Neck: Supple, trachea midline. Eye: Extraocular movements are intact. Ears, nose, mouth and throat: mucosa moist. Cardiovascular: Regular, Normal peripheral perfusion. Respiratory: Lungs are clear to auscultation, respirations are non-labored, breath sounds are equal, Symmetrical chest wall expansion. Gastrointestinal: Soft, Nontender, Non distended, Normal bowel sounds. Musculoskeletal: Normal ROM, no deformity. Neurological: Alert and oriented, No focal neurological deficit observed. Psychiatric: Cooperative, appropriate mood & affect. Course 2 Vital Signs: Vital signs: Vital Signs Temperature 97.4 F L 09/26/23 13:26 Pulse Rate 60 09/26/23 17:26 Respiratory Rate 16 09/26/23 13:26 Blood Pressure 96/65 09/26/23 17:26 Pulse Oximetry 97 09/26/23 17:26 Oxygen Delivery Me thod Nasal Cannula 09/26/23 17:26 Oxygen Flow Rate 2 09/26/23 17:26 MDM - Chest Pain Medical Decision Making Differential diagnosis for patient with chest pain includes but is not limited to and based on the above HPI, review of systems and physical exam: Pneumonia. unstable angina. angina. Acute coronary syndrome / LA. Pulmonary embolism. Costochondritis / musculoskeletal. Pleurisy. Pericarditis. Esophageal spasm. Pancreatis. Cholecystitis. Workup: Lab work, chest X-ray and EKG ordered to evaluate, rule in and rule out above pathologies. Lab Review: Laboratory results were reviewed and interpreted by myself the emergency room physician. White count is 5.8. Hemoglobin 9.6. Platelets are 121. Mild anemia and thrombocytopenia stable as compared to lab work last month. Stable chronic renal failure with a slight increase in creatinine from 1.2-1.4. BUN is always around 40. Initial troponin was 43. Urinalysis is clear. EKG: Time 1326. P.m. Rate 76 normal sinus rhythm, No ST-T changes, no ectopy, paced rhythm, this was reviewed and interpreted by myself the emergency room physician at 1330 PM Chest x-ray: No acute process. I do not see any pulmonary edema or infiltrates. Stable cardiomegaly, pacemaker in place, calcified aorta this was reviewed and interpreted by myself the ER physician. Reexamination: Patient remained stable. No increased work of breathing. Chest pain has resolved. Lab Data 09/26/23 13:39 09/26/23 13:39 Radiology Impressions Chest X-Ray 09/26/23 13:27 IMPRESSION: No acute cardiopulmonary disease. Laboratory Results WBC 5.88 10^3/uL (3.29-11.43) 09/26/23 13:39 RBC 3.23 10^6/uL (3.85-5.65) L 09/26/23 13:39 Hgb 9.60 g/dL (11.27-16.99) L 09/26/23 13:39 Hct 32.0 % (36-47) L 09/26/23 13:39 MCV 99.1 fl (85-98) H 09/26/23 13:39 MCH 29.7 pg (27-33) 09/26/23 13:39 MCHC 30.0 g/dL (30-55) 09/26/23 13:39 RDW 15.8 % (12.1-15.1) H 09/26/23 13:39 Plt Count 121 10^3/cmm (157-399) L 09/26/23 13:39 MPV 11.3 fL (7.4-10.4) H 09/26/23 13:39 Neut % (Auto) 73.5 % 09/26/23 13:39 Lymph % (Auto) 16.5 % 09/26/23 13:39 [place] % (Auto) 7.0 % 09/26/23 13:39 Eos % (Auto) 2.0 % 09/26/23 13:39 Baso % (Auto) 0.5 % 09/26/23 13:39 Neut # (Auto) 4.32 10^3/uL (1.8-7.7) 09/26/23 13:39 Lymph # (Auto) 1.0 10^3/uL (0.8-4.8) 09/26/23 13:39 [place] # (Auto) 0.4 10^3/uL (0.2-0.9) 09/26/23 13:39 Eos # (Auto) 0.1 10^3/uL (0.0-0.8) 09/26/23 13:39 Baso # (Auto) 0.0 10^3/uL (0.0-0.1) 09/26/23 13:39 Nucleated RBC % (auto) 0 % 09/26/23 13:39 Nucleated RBCs # 0.0 /100WBC 09/26/23 13:39 Sodium 141 mmol/L (136-145) 09/26/23 13:39 Potassium 3.2 mmol/L (3.5-5.1) L 09/26/23 13:39 Chloride 105 mmol/L (98-107) 09/26/23 13:39 Carbon Dioxide 24 mmol/L (22-29) 09/26/23 13:39 Anion Gap 15.2 (5-19) 09/26/23 13:39 BUN 39 mg/dL (8-23) H 09/26/23 13:39 Creatinine 1.4 mg/dL (0.5-0.9) H 09/26/23 13:39 GFR Calculation Not Reportable 09/26/23 13:39 Glucose 156 mg/dL (65-115) H 09/26/23 13:39 Calculated Osmolality 305 mOsm/kg (285-295) H 09/26/23 13:39 Calcium 8.3 mg/dL (8.5-10.5) L 09/26/23 13:39 Total Bilirubin 0.3 mg/dL (0.15-1.2) 09/26/23 13:39 AST 9 U/L (0-32) 09/26/23 13:39 ALT < 5 U/L (0-33) 09/26/23 13:39 Alkaline Phosphatase 187 U/L (35-105) H 09/26/23 13:39 Troponin T Baseline 43 ng/L (0-10) H 09/26/23 13:39 Troponin T 120 Minute 41.36 ng/L (0-10) H 09/26/23 15:41 Delta Troponin T -1.64 ABS# (0-10) L 09/26/23 15:41 C-Reactive Protein 25.5 mg/L (0.0-4.9) H 09/26/23 13:39 Total Protein 5.3 g/dL (6.6-8.7) L 09/26/23 13:39 Albumin 3.5 g/dL (3.5-5.2) 09/26/23 13:39 Globulin 1.8 g/dL (1.3-4.6) 09/26/23 13:39 Urine Color Yellow (Yellow) 09/26/23 16:09 Urine Appearance Clear (CLEAR) 09/26/23 16:09 Urine pH 5 (5-7) 09/26/23 16:09 Ur Specific [place] 1.010 (1.005-1.030) 09/26/23 16:09 Urine Protein Trace (Negative) 09/26/23 16:09 Urine Glucose (UA) Norm (Normal) 09/26/23 16:09 Urine Ketones Negative (Negative) 09/26/23 16:09 Urine Blood Neg (Negative) 09/26/23 16:09 Urine Nitrate Negative (Negative) 09/26/23 16:09 Urine Bilirubin Neg (Negative) 09/26/23 16:09 Urine Urobilinogen Neg mg/dL (Negative) 09/26/23 16:09 Ur Leukocyte Esterase Negative (Negative) 09/26/23 16:09 Urine RBC None /hpf (0-2) 09/26/23 16:09 Urine WBC Rare /hpf (0-5) 09/26/23 16:09 Ur Squamous Epith Cells 0-4 /hpf (0-5) H 09/26/23 16:09 Amorphous Sediment Not Reportable 09/26/23 16:35 Urine Bacteria None /hpf (NONE) 09/26/23 16:09 Coronavirus 229E (PCR) Not detected (NOT DETECT) 09/26/23 13:58 Influenza Type A Ag negative (Negative) 09/26/23 13:58 Influenza Type B Ag negative (Negative) 09/26/23 13:58 SARS-CoV-2 (PCR) Not detected (NOT DETECT) 09/26/23 13:58 All radiology interpretation(s) finalized by discharge Discharge Plan Discharge Patient Disposition: Home Clinical Impression: Chest pain, non-cardiac Condition: Stable Prescriptions: No Action nitroglycerin 0.4 mg tablet, sublingual 0.4 mg SUBLINGUAL Q5M PRN (Reason: chest pain) 30 Days Qty: 30 3RF Rx Instructions: until response; do not exceed 3 doses per episode trazodone 50 mg tablet 50 mg PO BEDTIME sertraline 50 mg tablet 50 mg PO DAILY Breztri Aerosphere 160-9-4.8 mcg/actuation HFA aerosol inhaler 2 inh inhalation BID Qty: 10.7 3RF spironolactone 25 mg tablet 25 mg PO DAILY albuterol sulfate 90 mcg/actuation HFA aerosol inhaler 2 puff inhalation Q6H PRN (Reason: Shortness Of Breath) naloxone 4 mg/actuation spray,non-aerosol 4 mg intranasal Q3M PRN (Reason: overdose) Rx Instructions: spray 1 dose into ONE nostril; alternate nostrils w each dose until help arrives (DME) post mastectomy Bras See Rx Instructions .Route .MEDSUPPLY Qty: 4 0RF Rx Instructions: As directed apixaban 2.5 mg tablet 2.5 mg PO BID Qty: 90 3RF Hold Instructions: Resume on 09/10/20. May restart this medicine today after 4:00 PM roflumilast [Daliresp] 250 mcg tablet 250 mcg PO DAILY Qty: 30 3RF magnesium hydroxide [Milk of Magnesia] 400 mg/5 mL Suspension 30 ml PO DAILY PRN (Reason: Constipation) omeprazole 40 mg capsule,delayed release(DR/EC) 40 mg PO BID sucralfate 100 mg/mL suspension 10 ml PO QID PRN (Reason: Heartburn) fluticasone propionate [Flonase Allergy Relief] 50 mcg/actuation spray,suspension 2 spray INTRANASAL QAM calcium carbonate-vitamin D3 [Calcium 600 + D(3)] 600 mg(1,500mg) -200 unit Tablet 1 tab PO DAILY sennosides-docusate sodium 8.6-50 mg Tablet 1 tab-cap PO BID PRN (Reason: Constipation) oxycodone-acetaminophen 10-325 mg tablet 1 tab PO Q8H PRN (Reason: Pain, Mild) carbidopa-levodopa 25-100 mg tablet 1 tab PO TID pravastatin 40 mg tablet 40 mg PO DAILY clonazepam 1 mg tablet 1 mg PO BEDTIME pramipexole 0.5 mg tablet 1 mg PO BEDTIME cyanocobalamin (vitamin B-12) 1,000 mcg/mL solution 1,000 mcg IM Q30D Rx Instructions: OF THE allopurinol 300 mg tablet 300 mg PO BID Lumigan 0.01 % drops 1 drp ophthalmic (eye) BEDTIME potassium chloride [Klor-Con 10] 10 mEq tablet extended release 20 meq PO DAILY levothyroxine 100 mcg tablet 100 mcg PO DAILY insulin glargine [Lantus U-100 Insulin] 100 unit/mL Solution 10 unit SUBCUT BEDTIME furosemide 20 mg tablet 40 mg PO DAILY Qty: 30 0RF zinc acetate 25 mg (zinc) Capsule 25 mg PO DAILY isosorbide mononitrate 60 mg tablet extended release 24 hr 60 mg PO DAILY metoprolol tartrate 25 mg tablet 25 mg PO BID Discharge Orders: Discharge ED (Routine); Ordered 09/26/23 Ordered By: Isabel Leiva Referrals: Terence Rogers [Primary Care Provider] - (You have been screened and evaluated and felt safe for discharge. Health conditions do change or evolve sometimes and as such it is important that you follow up with your Primary Doctor to be re checked, 3-5 days is a general good time frame for follow up. You are always welcome to return to the ED for re assessment if your symptoms are worsening or you have new concerns) Discharge Diet: Usual diet Discharge Activity: Resume usual activity Patient Instructions: Chest Pain - Noncardiac, Opioid Safety, Pain Management Coding Level of Care Code ED Benefits Manager for Patrizia Corral
[2023-09-26 14:07] LABS: Troponin(5th) Baseline 43 ng/L (0-10)
[2023-09-26 14:24] LABS: Influenza A by IFA negative (Negative); Influenza B by IFA negative (Negative)
--- NOTE | 2023-09-26 14:40 | PC.PHAR ---
medications verified by paperwork provided by pts son- son states no changes from discharge paperwork from 09/02/23
[2023-09-26 15:19] LABS: Alanine Aminotransferase < 5 U/L (0-33); Albumin Level 3.5 g/dL (3.5-5.2); Alkaline Phosphatase 187 U/L (35-105); Anion Gap 15.2 (5-19); Aspartate Amino Transferase 9 U/L (0-32); Blood Urea Nitrogen 39 mg/dL (8-23); C Reactive Protein 25.5 mg/L (0.0-4.9); Calcium 8.3 mg/dL (8.5-10.5); Carbon Dioxide 24 mmol/L (22-29); Chloride 105 mmol/L (98-107); Creatinine Clr Calc Pharmacy 25.7797; Globulin 1.8 g/dL (1.3-4.6); Glucose 156 mg/dL (65-115); Osmolality Calculated 305 mOsm/kg (285-295); Potassium 3.2 mmol/L (3.5-5.1); Sodium 141 mmol/L (136-145); Total Bilirubin 0.3 mg/dL (0.15-1.2); Total Protein 5.3 g/dL (6.6-8.7)
--- NOTE | 2023-09-26 15:28 | ECG_ITS ---
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 Measurements Intervals [place] Rate: 59 P: 0 NE: 0 QRS: -77 QRSD: 193 T: 102 QT: 551 QTc: 550 Interpretive Statements ELECTRONIC VENTRICULAR PACEMAKER PROLONGED QT INTERVAL CRITICAL TEST RESULT Compared to ECG 09/26/2023 13:26:06 Prolonged QT interval now present Electronically Signed On 09-26-2023 18:58:33 CDT by Vanessa Gregorio M.D. [id number]
[2023-09-26 15:52] LABS: Adenovirus Not Detected (NOT DETECT); Chlamydia Pneumoniae Not Detected (NOT DETECT); Coronavirus 229E,HKU1,NL63,OC4 Not Detected (NOT DETECT); Human Metapneumovirus Not Detected (NOT DETECT); Human Rhinovirus/Enterovirus Not Detected (NOT DETECT); Influenza A Not Detected (NOT DETECT); Influenza A H1 Not Detected (NOT DETECT); Influenza A H1-2009 Not Detected (NOT DETECT); Influenza A H3 Not Detected (NOT DETECT); Influenza B Not Detected (NOT DETECT); Mycoplasma Pneumoniae Not Detected (NOT DETECT); Parainfluenza Virus Type 1 Not Detected (NOT DETECT); Parainfluenza Virus Type 2 Not Detected (NOT DETECT); Parainfluenza Virus Type 3 Not Detected (NOT DETECT); Parainfluenza Virus Type 4 Not Detected (NOT DETECT); Respiratory Syncytial Virus A Not Detected (NOT DETECT); Respiratory Syncytial Virus B Not Detected (NOT DETECT); SARS-COV-2 Not Detected (NOT DETECT)
[2023-09-26 16:34] LABS: Troponin 5 2HR 41.36 ng/L (0-10)
[2023-09-26 16:36] LABS: Troponin 5 2HR Delta -1.64 ABS# (0-10)
[2023-09-26 17:31] LABS: Add Urine Culture? No; Bilirubin Urine Neg (Negative); Blood Urine Neg (Negative); Glucose Urine UA Norm (Normal); Ketones Urine Negative (Negative); Leukocyte Esterase Urine Negative (Negative); Nitrate Urine Negative (Negative); Protein Urine Trace (Negative); Squamous Epithelial Cell Urine 0-4 /hpf (0-5); Urine Appearance Clear (CLEAR); Urine Color Yellow (Yellow); Urobilinogen Urine Neg (Negative); WBC Urine RARE /hpf (0-5); pH Urine 5 (5-7)
== END 2023-09-26 18:20 | disposition home or self-care (01) ==
PROVIDERS: Emergency Provider Emergency Medicine; PCP Family Medicine
DX: R07.89 Other chest pain (principal); Z79.4 Long term (current) use of insulin; Z11.52 Encounter for screening for COVID-19; Z87.891 Personal history of nicotine dependence; Z95.0 Presence of cardiac pacemaker; E11.22 Type 2 diabetes mellitus with diabetic chronic kidney disease; I13.0 Hypertensive heart and chronic kidney disease with heart failure and stage 1 through stage 4 chronic kidney disease, or unspecified chronic kidney disease; N18.9 Chronic kidney disease, unspecified; I50.30 Unspecified diastolic (congestive) heart failure; J44.9 Chronic obstructive pulmonary disease, unspecified; Z99.81 Dependence on supplemental oxygen
CPT/HCPCS: 36415; 71045; 80053; 81001; 84484; 85025; 86140; 87040; 87635; 87804; 93005; 99285

== ENCOUNTER 2023-10-28 13:46 | Outpatient (CLI) | payer MEDICARE, MEDICAID, SELFPAY ==
--- NOTE | 2023-10-28 13:53 | CT_ITS ---
WS: [id number] CT ABDOMEN AND PELVIS NONCONTRAST HISTORY: INTESTINAL OBSTRUCTION/PERIUMBILICAL ABD PAIN/VOMITING TECHNIQUE: Imaging performed through the abdomen and pelvis. Coronal and sagittal reformats are submi tted. All CT scans at [facility] use at least one of these dose optimization techniques: auto mated exposure control; mA and/or kV adjustment per patient size (includes targeted exams where dose is matched to clinical indication); or iterative reconstruction. DLP: 516.83 mGy.cm COMPARISON: 06/30/2021 Lower thorax: Small hiatal hernia. Otherwise negative. Liver: Normal size liver. No mass or bile duct dilatation. Gallbladder: Prior cholecystectomy. Pancreas: Diffuse atrophy. Spleen: Normal. Adrenal glands: Normal. No mass. Right kidney: Normal size kidney. There are a few scattered cortical hypodensities which cannot be ch aracterized further. These have not increased in size. No obstruction of the kidney. Mild perinephric stranding. Left kidney: Mild perinephric stranding. 5.2 cm cyst upper pole. No obstruction of the kidney. Aorta: Extensive atherosclerotic plaque within the abdominal aorta and the mesenteric arteries and re nal arteries. Small amount of abdominal ascites. There is diffuse soft tissue anasarca. No free air is identified. GI tract: Nondistended stomach. No small bowel obstruction. There is no colon obstruction. Abdominal wall: Negative. No hernia. Pelvis: Moderate free fluid in the pelvis. Very coarse uterine calcifications from fibroids. The urin ang bladder is minimally distended. Osseous structures: Osteopenia. IMPRESSION: 1. No GI tract obstruction. 2. Interval development of mild ascites and soft tissue anasarca since 06/30/2021. 3. Cardiomegaly. 4. Severe atherosclerosis aorta and mesenteric arteries. 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 Patient's symptoms may be related to gastrointestinal i schemia. There is no free air or perforation. 5. No renal obstruction. 6. Prior cholecystectomy. 7. Fibroid uterus. Notified Terence Rogers at 10/28/2023 2:34 PM.
== END 2023-10-28 13:47 | disposition home or self-care (01) ==
LOC: RAD 13:47
PROVIDERS: PCP Family Medicine; Visit Provider Family Medicine
DX: K42.0 Umbilical hernia with obstruction, without gangrene (principal); R10.33 Periumbilical pain; R11.10 Vomiting, unspecified; I51.7 Cardiomegaly; R18.8 Other ascites; I70.0 Atherosclerosis of aorta; K55.1 Chronic vascular disorders of intestine; D25.9 Leiomyoma of uterus, unspecified
CPT/HCPCS: 74176

== ENCOUNTER 2023-10-29 12:57 | Emergency (ER) | payer MEDICARE, MEDICAID, SELFPAY ==
[2023-10-29] VITALS (16 sets, daily range): BP systolic 112–142; BP diastolic 59–74; PULSE 60–86; RESP 16–20; TEMP 36.4; O2SAT 96–100
--- NOTE | 2023-10-29 13:36 | W.ED.ABDPA2 ---
HPI - Abdominal Pain General: Chief Complaint: Abdominal Pain Stated Complaint: ABD PAIN Time Seen by Provider: 10/29/23 13:02 Source: patient and EMS Mode of arrival: EMS Limitations: no limitations History of Present Illness: 83-year-old female states she is been having abdominal pain for over a month states that she had seen at [facility] yesterday was sent here for an outpatient CT of her abdomen but never did receive the results continue have diffuse pain she rates 4 out of 10 denies any diarrhea she denies any worse improved factors no fevers. Associated Symptoms: Denies chills, diarrhea, dysuria, fever(s), nausea and vomiting Review of Systems Const: Denies: fever(s), chills, body aches or change in appetite ENMT: Denies: throat pain or dental pain Card: Denies: chest pain Resp: Denies: dyspnea GI: Reports: abdominal pain; Denies: nausea, vomiting or diarrhea : Denies: dysuria Musc: Denies: neck pain or back pain Skin/Breast: Denies: rash Neuro: Denies: headache(s) Psych: Denies: depression Buzz/Lymph: Denies: easy bruising All/Imm: Denies: urticaria PFSH ED PFSH: Medical History Bilateral renal cysts On multiple imaging modalities all appear simple. No further work-up recommended December 2020 Pacemaker Right bundle branch block Supraventricular tachycardia COVID-19 Elevated troponin Chest pain Chronic respiratory failure with hypoxia and hypercapnia GERD (gastroesophageal reflux disease) Atypical chest pain Cardiac [place] [address] Monaco. She had no significant coronary artery disease at that time. Chronic kidney disease Diastolic heart failure Osteoarthritis Syncope Chronic kidney disease -baseline Cr appears to be around 2-2.3 - Symptomatic bradycardia UTI (urinary tract infection) - Bradycardia Anemia -on iron supplementation Intermittent atrial fibrillation COPD (chronic obstructive pulmonary disease) Uses 3 L [id number] and BiPAP at night Gout Former smoker Normal coronary angiogram Cardiac angiogram done in September 2015 Chronic back pain History of pulmonary embolism -is on AC with Eliquis Hypothyroidism Type 2 diabetes mellitus Hypertension Diastolic heart failure Chronic anticoagulation Paroxysmal A-fib Surgical History H/O right mastectomy History of tonsillectomy H/O hernia repair H/O colonoscopy 2019 H/O esophagogastroduodenoscopy (~04/2020) 2019 H/O left knee surgery Tubal ligation status History of cholecystectomy Family History Father CAD (coronary artery disease) Family history of premature coronary artery disease Hypertension Mother Cancer Chronic kidney disease (CKD) Hypertension Sister Hyperlipidemia Hypertension Daughter No problems noted. Other Diabetes Social History Smoking and tobacco/nicotine status: former use of tobacco/nicotine Quit status (tobacco/nicotine): has quit using Year quit tobacco: 1970 - 1PPD x 25 Years Alcohol intake: never Substance/Drug Use: never Caregiver/support person: Yes Lives independently: Yes Household members: family Housing: House Marital status: / Current occupational status: retired Do you think of yourself as: Straight/Heterosexual Physical Exam Const: COMMON NORMALS: no acute distress, patient oriented x3 and healthy appearing HENMT: COMMON NORMALS: normocephalic and atraumatic HEAD & SCALP: normocephalic and atraumatic Neck/C-Spine: COMMON NORMALS: full ROM and supple Chest: COMMONS NORMALS: normal inspection of the chest and normal palpation of entire chest wall Resp: COMMON NORMALS: normal respiratory effort, No retractions, No use of accessory muscles and clear to auscultation bilaterally AUSCULTATION: clear to auscultation bilaterally Cardio: COMMON NORMALS: regular rate, regular rhythm and No murmurs present (Cardio) RATE: regular rate RHYTHM: regular rhythm GI: COMMON NORMALS: Soft to palpation, non-tender and no masses PALPATION: Yes Soft to palpation OTHER: distended abdomen Extremity: COMMON NORMALS: normal to inspection and full ROM Neuro: COMMON NORMALS: patient oriented x3, moves all extremities and no focal motor deficits Psych: COMMON NORMALS: mental status grossly normal, Normal thought process present and cooperative THOUGHT PROCESS: Normal thought process present Skin: COMMON NORMALS: no rashes or lesions noted and no wounds GENERAL SKIN EXAM: no rashes or lesions noted Course Vital Signs: Vital signs: Vital Signs Temperature 97.6 F 10/29/23 12:58 Pulse Rate 80 10/29/23 14:20 Respiratory Rate 18 10/29/23 14:05 Blood Pressure 116/65 10/29/23 14:30 Pulse Oximetry 97 10/29/23 14:30 Oxygen Delivery Me thod Nasal Cannula 10/29/23 13:06 Oxygen Flow Rate 3 10/29/23 13:06 MDM - Abdominal Pain Medical Decision Making Patient presents here with abdominal pain has been going on for a month I did review her CT from yesterday was normal blood work here is normal as well her exam is benign she feels improved we will prescribe her pain meds for home she is follow-up with PCP return if worsening. Medical Records I reviewed the patient's medical records. Lab Data I reviewed the patient's lab results. 10/29/23 13:55 10/29/23 13:55 Labs/Radiology: Laboratory Results WBC 7.87 10^3/uL (3.29-11.43) 10/29/23 13:55 RBC 3.82 10^6/uL (3.85-5.65) L 10/29/23 13:55 Hgb 11.40 g/dL (11.27-16.99) 10/29/23 13:55 Hct 39.2 % (36-47) 10/29/23 13:55 MCV 102.6 fl (85-98) H 10/29/23 13:55 MCH 29.8 pg (27-33) 10/29/23 13:55 MCHC 29.1 g/dL (30-55) L 10/29/23 13:55 RDW 16.3 % (12.1-15.1) H 10/29/23 13:55 Plt Count 111 10^3/cmm (157-399) L 10/29/23 13:55 MPV 12.6 fL (7.4-10.4) H 10/29/23 13:55 Neut % (Auto) 82.7 % 10/29/23 13:55 Lymph % (Auto) 10.3 % 10/29/23 13:55 [place] % (Auto) 5.3 % 10/29/23 13:55 Eos % (Auto) 0.8 % 10/29/23 13:55 Baso % (Auto) 0.3 % 10/29/23 13:55 Neut # (Auto) 6.51 10^3/uL (1.8-7.7) 10/29/23 13:55 Lymph # (Auto) 0.8 10^3/uL (0.8-4.8) 10/29/23 13:55 [place] # (Auto) 0.4 10^3/uL (0.2-0.9) 10/29/23 13:55 Eos # (Auto) 0.1 10^3/uL (0.0-0.8) 10/29/23 13:55 Baso # (Auto) 0.0 10^3/uL (0.0-0.1) 10/29/23 13:55 Nucleated RBC % (auto) 0 % 10/29/23 13:55 Nucleated RBCs # 0.0 /100WBC 10/29/23 13:55 Sodium 143 mmol/L (136-145) 10/29/23 13:55 Potassium 4.6 mmol/L (3.5-5.1) 10/29/23 13:55 Chloride 109 mmol/L (98-107) H 10/29/23 13:55 Carbon Dioxide 24 mmol/L (22-29) 10/29/23 13:55 Anion Gap 14.6 (5-19) 10/29/23 13:55 BUN 47 mg/dL (8-23) H 10/29/23 13:55 Creatinine 1.5 mg/dL (0.5-0.9) H 10/29/23 13:55 GFR Calculation Not Reportable 10/29/23 13:55 Glucose 184 mg/dL (65-115) H 10/29/23 13:55 Calculated Osmolality 313 mOsm/kg (285-295) H 10/29/23 13:55 Calcium 8.6 mg/dL (8.5-10.5) 10/29/23 13:55 Total Bilirubin 0.4 mg/dL (0.15-1.2) 10/29/23 13:55 AST 13 U/L (0-32) 10/29/23 13:55 ALT < 5 U/L (0-33) 10/29/23 13:55 Alkaline Phosphatase 199 U/L (35-105) H 10/29/23 13:55 Total Protein 5.6 g/dL (6.6-8.7) L 10/29/23 13:55 Albumin 3.3 g/dL (3.5-5.2) L 10/29/23 13:55 Globulin 2.3 g/dL (1.3-4.6) 10/29/23 13:55 Lipase 31 U/L (13-60) 10/29/23 13:55 Urine Color Dark yellow (Yellow) 10/29/23 14:12 Urine Appearance Clear (CLEAR) 10/29/23 14:12 Urine pH 5 (5-7) 10/29/23 14:12 Ur Specific [place] 1.020 (1.005-1.030) 10/29/23 14:12 Urine Protein 2+ (Negative) H 10/29/23 14:12 Urine Glucose (UA) Norm (Normal) 10/29/23 14:12 Urine Ketones Negative (Negative) 10/29/23 14:12 Urine Blood Neg (Negative) 10/29/23 14:12 Urine Nitrate Negative (Negative) 10/29/23 14:12 Urine Bilirubin Neg (Negative) 10/29/23 14:12 Urine Urobilinogen Norm mg/dL (Negative) 10/29/23 14:12 Ur Leukocyte Esterase Negative (Negative) 10/29/23 14:12 Urine RBC None /hpf (0-2) 10/29/23 14:12 Urine WBC 0-4 /hpf (0-5) H 10/29/23 14:12 Ur Squamous Epith Cells 0-4 /hpf (0-5) H 10/29/23 14:12 Amorphous Sediment Not Reportable 10/29/23 14:12 Urine Bacteria Trace /hpf (NONE) 10/29/23 14:12 Coarse Granular Casts 15-25 /lpf H 10/29/23 14:12 No radiology studies performed this visit Discharge Plan Discharge Patient Disposition: Home Clinical Impression: Abdominal pain Condition: Stable Prescriptions: New hydrocodone-acetaminophen 5-325 mg tablet 1 tab PO Q6H PRN (Reason: pain) Qty: 14 0RF ondansetron 4 mg tablet,disintegrating 4 mg PO Q6H PRN (Reason: nausea and vomiting) Qty: 14 0RF No Action nitroglycerin 0.4 mg tablet, sublingual 0.4 mg SUBLINGUAL Q5M PRN (Reason: chest pain) 30 Days Qty: 30 3RF Rx Instructions: until response; do not exceed 3 doses per episode trazodone 50 mg tablet 50 mg PO BEDTIME Jackeline Aerosphere 160-9-4.8 mcg/actuation HFA aerosol inhaler 2 inh inhalation BID Qty: 10.7 3RF spironolactone 25 mg tablet 25 mg PO DAILY albuterol sulfate 90 mcg/actuation HFA aerosol inhaler 2 puff inhalation Q6H PRN (Reason: Shortness Of Breath) naloxone 4 mg/actuation spray,non-aerosol 4 mg intranasal Q3M PRN (Reason: overdose) Rx Instructions: spray 1 dose into ONE nostril; alternate nostrils w each dose until help arrives (DME) post mastectomy Bras See Rx Instructions .Route .MEDSUPPLY Qty: 4 0RF Rx Instructions: As directed apixaban 2.5 mg tablet 2.5 mg PO BID Qty: 90 3RF Hold Instructions: Resume on 09/10/20. May restart this medicine today after 4:00 PM magnesium hydroxide [Milk of Magnesia] 400 mg/5 mL Suspension 30 ml PO DAILY PRN (Reason: Constipation) omeprazole 40 mg capsule,delayed release(DR/EC) 40 mg PO BID fluticasone propionate [Flonase Allergy Relief] 50 mcg/actuation spray,suspension 2 spray INTRANASAL QAM PRN (Reason: ALLERGIES) calcium carbonate-vitamin D3 [Calcium 600 + D(3)] 600 mg(1,500mg) -200 unit Tablet 1 tab PO DAILY sennosides-docusate sodium 8.6-50 mg Tablet 1 tab-cap PO BID PRN (Reason: Constipation) oxycodone-acetaminophen 10-325 mg tablet 1 tab PO Q8H PRN (Reason: Pain, Mild) carbidopa-levodopa 25-100 mg tablet 1 tab PO TID pravastatin 40 mg tablet 40 mg PO DAILY clonazepam 1 mg tablet 1 mg PO BEDTIME pramipexole 0.5 mg tablet 1 mg PO BEDTIME cyanocobalamin (vitamin B-12) 1,000 mcg/mL solution 1,000 mcg IM Q30D Rx Instructions: OF THE allopurinol 300 mg tablet 300 mg PO BID Lumigan 0.01 % drops 1 drp ophthalmic (eye) BEDTIME potassium chloride [Klor-Con 10] 10 mEq tablet extended release 20 meq PO DAILY PRN (Reason: Edema) latanoprost 0.005 % drops 1 drp ophthalmic (eye) QAM buspirone 5 mg tablet 5 mg PO DAILY sertraline 100 mg tablet 100 mg PO DAILY metolazone 5 mg tablet See Rx Instructions .ROUTE .COMPLEX Rx Instructions: TAKE 1 TABLET BY MOUTH ONCE DAILY; TAKE 30 MINUTES BEFORE LASIX IN THE MORNING baclofen 5 mg tablet 5 mg PO DAILY levothyroxine 100 mcg tablet 100 mcg PO DAILY insulin glargine [Lantus U-100 Insulin] 100 unit/mL Solution 10 unit SUBCUT BEDTIME furosemide 20 mg tablet 40 mg PO DAILY Qty: 30 0RF zinc acetate 25 mg (zinc) Capsule 25 mg PO DAILY isosorbide mononitrate 60 mg tablet extended release 24 hr 60 mg PO DAILY metoprolol tartrate 25 mg tablet 25 mg PO BID Discharge Orders: Discharge ED (Routine); Ordered 10/29/23 Ordered By: Thien Cline Referrals: Terence Rogers [Primary Care Provider] - 4-7 days Discharge Diet: Advance as tolerated Discharge Activity: Resume usual activity Patient Instructions: Abdominal Pain (ED), Opioid Safety Coding Level of Care Code ED [employer] Agent for Patrizia Corral
[2023-10-29 14:04] LABS: Basophils % 0.3 %; Eosinophils # 0.1 10^3/uL (0.0-0.8); Eosinophils % 0.8 %; Hematocrit 39.2 % (36-47); Lymphocytes # 0.8 10^3/uL (0.8-4.8); Lymphocytes % 10.3 %; Mean Corpuscular HGB Conc 29.1 g/dL (30-55); Mean Corpuscular Hemoglobin 29.8 pg (27-33); Mean Corpuscular Volume 102.6 fl (85-98); Mean Platelet Volume 12.6 fL (7.4-10.4); Monocytes # 0.4 10^3/uL (0.2-0.9); Monocytes % 5.3 %; Neutrophils # 6.51 10^3/uL (1.8-7.7); Neutrophils % 82.7 %; Nucleated Red Blood Cells % 0 %; Platelet Count 111 10^3/cmm (157-399); Red Blood Count 3.82 10^6/uL (3.85-5.65); Red Cell Distribution Width 16.3 % (12.1-15.1); White Blood Count 7.87 10^3/uL (3.29-11.43)
--- NOTE | 2023-10-29 14:04 | PC.PHAR ---
PT USES [facility] TO SET MEDICATIONS UP-THEY ARE CLOSED ON WEEKENDS. PT RECENTLY SEEN HER AT [facility]. MED REC DONE FROM PREVIOUS LIST AND VERIFIED WITH GUARDIAN (SON).
[2023-10-29] MEDS: morphine 4 mg/mL SDV 1 mL IVP (14:05)
[2023-10-29] MEDS: ondansetron 2 mg/ML SDV 2 mL 4 MG IVP (14:05)
[2023-10-29 14:24] LABS: Alanine Aminotransferase < 5 U/L (0-33); Albumin Level 3.3 g/dL (3.5-5.2); Alkaline Phosphatase 199 U/L (35-105); Anion Gap 14.6 (5-19); Aspartate Amino Transferase 13 U/L (0-32); Blood Urea Nitrogen 47 mg/dL (8-23); Calcium 8.6 mg/dL (8.5-10.5); Carbon Dioxide 24 mmol/L (22-29); Chloride 109 mmol/L (98-107); Globulin 2.3 g/dL (1.3-4.6); Glucose 184 mg/dL (65-115); Lipase 31 U/L (13-60); Osmolality Calculated 313 mOsm/kg (285-295); Potassium 4.6 mmol/L (3.5-5.1); Sodium 143 mmol/L (136-145); Total Bilirubin 0.4 mg/dL (0.15-1.2); Total Protein 5.6 g/dL (6.6-8.7)
[2023-10-29 14:26] LABS: Creatinine Clr Calc Pharmacy 25.2606
[2023-10-29 15:11] LABS: Add Urine Microscopic? YES; Bacteria Urine TRACE /hpf; Bilirubin Urine Neg (Negative); Blood Urine Neg (Negative); Coarse Granular Casts Urine 15-25 /lpf; Glucose Urine UA Norm (Normal); Ketones Urine Negative (Negative); Leukocyte Esterase Urine Negative (Negative); Nitrate Urine Negative (Negative); Protein Urine 2+ (Negative); Squamous Epithelial Cell Urine 0-4 /hpf (0-5); Urine Appearance Clear (CLEAR); Urine Color Dark Yellow (Yellow); Urobilinogen Urine Norm (Negative); WBC Urine 0-4 /hpf (0-5); pH Urine 5 (5-7)
[2023-10-29 15:12] LABS: Add Urine Culture? No
== END 2023-10-29 16:11 | disposition home or self-care (01) ==
PROVIDERS: Emergency Provider Emergency Medicine; PCP Family Medicine
DX: R10.9 Unspecified abdominal pain (principal); Z79.4 Long term (current) use of insulin; R14.0 Abdominal distension (gaseous); Z87.891 Personal history of nicotine dependence; E11.22 Type 2 diabetes mellitus with diabetic chronic kidney disease; I13.0 Hypertensive heart and chronic kidney disease with heart failure and stage 1 through stage 4 chronic kidney disease, or unspecified chronic kidney disease; N18.9 Chronic kidney disease, unspecified; I50.9 Heart failure, unspecified; Z95.0 Presence of cardiac pacemaker; J44.9 Chronic obstructive pulmonary disease, unspecified; Z99.81 Dependence on supplemental oxygen
CPT/HCPCS: 80053; 81001; 83690; 85025; 96374; 96375; 99284; J2270; J2405

== ENCOUNTER 2023-11-05 17:39 | Inpatient (IN) | payer MEDICARE, MEDICAID, SELFPAY ==
[2023-11-05] VITALS (10 sets, daily range): BP systolic 78–127; BP diastolic 52–80; PULSE 60–66; RESP 15–18; TEMP 36.3–36.4; O2SAT 97–100
--- NOTE | 2023-11-05 17:47 | XRR_ITS ---
PROCEDURE INFORMATION: Exam: XR Complete Acute Abdomen Series Including Chest Exam date and time: 11/05/2023 6:04 PM Age: 83 years old Clinical indication: Abdominal pain; Generalized; Prior surgery; Surgery date: 6+ months; Surgery type: Gb. Hernia repair. Patient HX: Abd pain with n/v; Additional info: Abdomen pain TECHNIQUE: Imaging protocol: Radiologic exam. Complete acute abdomen series, including 2 or more views of the abdomen and a single view chest. COMPARISON: CR XR chest 1V [id number] 09/26/2023 1:47 PM FINDINGS: Lungs: No focal consolidation. Pleural spaces: No evidence of pneumothorax. No evidence of effusion. Heart/Mediastinum: Mild cardiomegaly. Left subclavian approach single lead pacemaker. Gastrointestinal tract: Multiple loops of dilated small bowel measuring up to 3 cm. Intraperitoneal space: No gross evidence of pneumoperitoneum or pneumatosis. Bones/joints: No evidence of acute osseous abnormality. Soft tissues: Grossly unremarkable. XR/XR acute abdomen series [id number] IMPRESSION: 1. Multiple loops of dilated small bowel raising the question of small bowel obstruction. Consider correlation with dedicated CT of the abdomen/pelvis with contrast if clinically feasible.
[2023-11-05 18:02] LABS: Basophils % 0.1 %; Eosinophils % 0.2 %; Hematocrit 38.4 % (36-47); Lymphocytes % 7.2 %; Mean Corpuscular HGB Conc 29.9 g/dL (30-55); Mean Corpuscular Hemoglobin 30.3 pg (27-33); Mean Corpuscular Volume 101.1 fl (85-98); Mean Platelet Volume 12.5 fL (7.4-10.4); Monocytes # 0.6 10^3/uL (0.2-0.9); Monocytes % 4.4 %; Neutrophils # 12.08 10^3/uL (1.8-7.7); Neutrophils % 87.7 %; Nucleated Red Blood Cells % 0 %; Platelet Count 89 10^3/cmm (157-399); Red Cell Distribution Width 17.4 % (12.1-15.1); White Blood Count 13.76 10^3/uL (3.29-11.43)
[2023-11-05 18:21] LABS: Alanine Aminotransferase < 5 U/L (0-33); Albumin Level 3.1 g/dL (3.5-5.2); Alkaline Phosphatase 189 U/L (35-105); Anion Gap 14.5 (5-19); Aspartate Amino Transferase 19 U/L (0-32); Blood Urea Nitrogen 60 mg/dL (8-23); C Reactive Protein 31.5 mg/L (0.0-4.9); Calcium 8.1 mg/dL (8.5-10.5); Carbon Dioxide 20 mmol/L (22-29); Chloride 114 mmol/L (98-107); Creatinine Clr Calc Pharmacy 22.2888; Globulin 2.1 g/dL (1.3-4.6); Glucose 197 mg/dL (65-115); Osmolality Calculated 320 mOsm/kg (285-295); Potassium 4.5 mmol/L (3.5-5.1); Sodium 144 mmol/L (136-145); Total Bilirubin 0.5 mg/dL (0.15-1.2); Total Protein 5.2 g/dL (6.6-8.7)
--- NOTE | 2023-11-05 18:59 | W.ED.ABDPA2 ---
HPI - Abdominal Pain General: Chief Complaint: Abdominal Pain Stated Complaint: abd pain, n/v Time Seen by Provider: 11/05/23 18:05 History of Present Illness: 83-year-old female here with abdominal pain. Evidently this is chronic. It has been about a month. 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 She has had continued abdominal pain. Family brings her in today with continued abdominal pain, mostly after eating. She has pain with movement as well. She vomited once today. No diarrhea. No blood in her stool. Associated Symptoms: Reports nausea and vomiting; Denies fever(s) Review of Systems Const: Denies: fever(s) ENMT: Reports: throat pain Card: Denies: chest pain Resp: Denies: dyspnea or productive cough GI: Reports: abdominal pain, nausea and vomiting PFSH ED PFSH: Medical History Bilateral renal cysts On multiple imaging modalities all appear simple. No further work-up recommended December 2020 Pacemaker Right bundle branch block Supraventricular tachycardia COVID-19 Elevated troponin Chest pain Chronic respiratory failure with hypoxia and hypercapnia GERD (gastroesophageal reflux disease) Atypical chest pain Cardiac [place] [address] [place]. She had no significant coronary artery disease at that time. Chronic kidney disease Diastolic heart failure Osteoarthritis Syncope Chronic kidney disease -baseline Cr appears to be around 2-2.3 - Symptomatic bradycardia UTI (urinary tract infection) - Bradycardia Anemia -on iron supplementation Intermittent atrial fibrillation COPD (chronic obstructive pulmonary disease) Uses 3 L [id number] and BiPAP at night Gout Former smoker Normal coronary angiogram Cardiac angiogram done in September 2015 Chronic back pain History of pulmonary embolism -is on AC with Eliquis Hypothyroidism Type 2 diabetes mellitus Hypertension Diastolic heart failure Chronic anticoagulation Paroxysmal A-fib Surgical History H/O right mastectomy History of tonsillectomy H/O hernia repair H/O colonoscopy 2019 H/O esophagogastroduodenoscopy (~04/2020) 2019 H/O left knee surgery Tubal ligation status History of cholecystectomy Family History Father CAD (coronary artery disease) Family history of premature coronary artery disease Hypertension Mother Cancer Chronic kidney disease (CKD) Hypertension Sister Hyperlipidemia Hypertension Daughter No problems noted. Other Diabetes Social History Smoking and tobacco/nicotine status: former use of tobacco/nicotine Quit status (tobacco/nicotine): has quit using Year quit tobacco: 1971 - 1PPD x 25 Years Alcohol intake: never Substance/Drug Use: never Caregiver/support person: Yes Lives independently: Yes Household members: family Housing: House Marital status: / Current occupational status: retired Do you think of yourself as: Straight/Heterosexual Physical Exam Const: GENERAL APPEARANCE: cooperative, ill appearing and frail appearing HENMT: COMMON NORMALS: normocephalic, atraumatic and Normal external nose present HEAD & SCALP: normocephalic and atraumatic FACE & SINUS: normal facial exam and face symmetric NOSE: Normal external nose present Eye: COMMON NORMALS: Equal, round and reactive pupils present and EOMs intact bilaterally PUPIL: Yes Equal, round and reactive pupils present Neck/C-Spine: GENERAL: Yes trachea midline Chest: CHEST: Yes Symmetrical chest wall rise Resp: COMMON NORMALS: normal respiratory effort, No retractions, No use of accessory muscles and clear to auscultation bilaterally AUSCULTATION: clear to auscultation bilaterally Cardio: COMMON NORMALS: regular rate and regular rhythm RATE: regular rate RHYTHM: regular rhythm GI: COMMON NORMALS: Normal to inspection, nondistended, normoactive bowel sounds present INSPECTION: Yes abdominal distension AUSCULTATION: Yes Hyperactive bowel sounds present PALPATION: Yes Firmness to palpation present (GI) and Yes Tenderness to palpation present (GI) (generalized) Extremity: COMMON NORMALS: no pedal edema Neuro: GODFREY COMA SCALE: document GCS findings Godfrey coma scale eye opening: Spontaneous [place] coma scale verbal response: Orientated [place] coma scale motor response: Obey commands [place] coma scale total score: 15 SENSORY EXAM: Yes extremities (intact) Psych: COMMON NORMALS: speech normal SPEECH: Yes normal speech Skin: COMMON NORMALS: no rashes or lesions noted GENERAL SKIN EXAM: no rashes or lesions noted Course Vital Signs: Vital signs: Vital Signs Temperature 97.6 F 11/05/23 17:40 Pulse Rate 60 11/05/23 20:22 Respiratory Rate 18 11/05/23 20:22 Blood Pressure 104/58 11/05/23 20:22 Pulse Oximetry 97 11/05/23 20:22 Oxygen Delivery Me thod Room Air 11/05/23 18:35 Oxygen Flow Rate 3 11/05/23 17:40 MDM - Abdominal Pain Medical Decision Making 83-year-old female with chronic abdominal pain. She has vomited today. She presents with continued symptoms. White blood cell count is 13.8. Abdominal x-ray shows multiple loops of dilated small bowel. CT is pending. CTA is ordered, because of history of superior mesenteric artery stenosis. CTA shows no high-grade stenosis. There is bladder wall thickening consistent with urinary tract infection found on urinalysis, the differs from last week. This could be a source of elevation of her white blood cell count as well. There is no evidence of small bowel obstruction. Patient will be observed for IV hydration, given apparent acute kidney injury, treatment of urinary tract infection, generalized weakness. Hospitalist notified he will see the patient. Lab Data 11/05/23 17:45 11/05/23 17:45 Labs/Radiology: Radiology Impressions Chest/Abdomen X-ray 11/05/23 17:47 IMPRESSION: 1. Multiple loops of dilated small bowel raising the question of small bowel obstruction. Consider correlation with dedicated CT of the abdomen/pelvis with contrast if clinically feasible. Abdomen/Pelvis CTA 11/05/23 19:12 IMPRESSION: 1. Anasarca with diffuse soft tissue edema and moderate intraperitoneal free fluid/ascites. No evidence of bowel obstruction. 2. Cardiomegaly with evidence of increased right-sided heart pressures. There is mild nodularity of the liver contour raising the question of cirrhosis (including cardiac cirrhosis). 3. Atherosclerosis without aneurysmal dilatation or dissection of the abdominal aorta. Laboratory Results WBC 13.76 10^3/uL (3.29-11.43) H 11/05/23 17:45 RBC 3.80 10^6/uL (3.85-5.65) L 11/05/23 17:45 Hgb 11.50 g/dL (11.27-16.99) 11/05/23 17:45 Hct 38.4 % (36-47) 11/05/23 17:45 MCV 101.1 fl (85-98) H 11/05/23 17:45 MCH 30.3 pg (27-33) 11/05/23 17:45 MCHC 29.9 g/dL (30-55) L 11/05/23 17:45 RDW 17.4 % (12.1-15.1) H 11/05/23 17:45 Plt Count 89 10^3/cmm (157-399) L 11/05/23 17:45 MPV 12.5 fL (7.4-10.4) H 11/05/23 17:45 Neut % (Auto) 87.7 % 11/05/23 17:45 Lymph % (Auto) 7.2 % 11/05/23 17:45 [place] % (Auto) 4.4 % 11/05/23 17:45 Eos % (Auto) 0.2 % 11/05/23 17:45 Baso % (Auto) 0.1 % 11/05/23 17:45 Neut # (Auto) 12.08 10^3/uL (1.8-7.7) H 11/05/23 17:45 Lymph # (Auto) 1.0 10^3/uL (0.8-4.8) 11/05/23 17:45 [place] # (Auto) 0.6 10^3/uL (0.2-0.9) 11/05/23 17:45 Eos # (Auto) 0.0 10^3/uL (0.0-0.8) 11/05/23 17:45 Baso # (Auto) 0.0 10^3/uL (0.0-0.1) 11/05/23 17:45 Nucleated RBC % (auto) 0 % 11/05/23 17:45 Nucleated RBCs # 0.0 /100WBC 11/05/23 17:45 Sodium 144 mmol/L (136-145) 11/05/23 17:45 Potassium 4.5 mmol/L (3.5-5.1) 11/05/23 17:45 Chloride 114 mmol/L (98-107) H 11/05/23 17:45 Carbon Dioxide 20 mmol/L (22-29) L 11/05/23 17:45 Anion Gap 14.5 (5-19) 11/05/23 17:45 BUN 60 mg/dL (8-23) H 11/05/23 17:45 Creatinine 1.7 mg/dL (0.5-0.9) H 11/05/23 17:45 GFR Calculation Not Reportable 11/05/23 17:45 Glucose 197 mg/dL (65-115) H 11/05/23 17:45 Calculated Osmolality 320 mOsm/kg (285-295) H 11/05/23 17:45 Lactic Acid 1.0 mmol/L (0.5-2.2) 11/05/23 17:54 Calcium 8.1 mg/dL (8.5-10.5) L 11/05/23 17:45 Total Bilirubin 0.5 mg/dL (0.15-1.2) 11/05/23 17:45 AST 19 U/L (0-32) 11/05/23 17:45 ALT < 5 U/L (0-33) 11/05/23 17:45 Alkaline Phosphatase 189 U/L (35-105) H 11/05/23 17:45 C-Reactive Protein 31.5 mg/L (0.0-4.9) H 11/05/23 17:45 Total Protein 5.2 g/dL (6.6-8.7) L 11/05/23 17:45 Albumin 3.1 g/dL (3.5-5.2) L 11/05/23 17:45 Globulin 2.1 g/dL (1.3-4.6) 11/05/23 17:45 Urine Color Dark yellow (Yellow) 11/05/23 19:09 Urine Appearance Turbid (CLEAR) A 11/05/23 19:09 Urine pH 9 (5-7) H 11/05/23 19:09 Ur Specific [place] 1.010 (1.005-1.030) 11/05/23 19:09 Urine Protein 2+ (Negative) H 11/05/23 19:09 Urine Glucose (UA) Norm (Normal) 11/05/23 19:09 Urine Ketones 1+ (Negative) H 11/05/23 19:09 Urine Blood 3+ (Negative) H 11/05/23 19:09 Urine Nitrate Negative (Negative) 11/05/23 19:09 Urine Bilirubin Neg (Negative) 11/05/23 19:09 Prot Sulfosalicylic Acd Positive (Negative) 11/05/23 19:09 Urine Urobilinogen Neg mg/dL (Negative) 11/05/23 19:09 Ur Leukocyte Esterase 2+ (Negative) H 11/05/23 19:09 Urine RBC 15-25 /hpf (0-2) H 11/05/23 19:09 Urine WBC 25-40 /hpf (0-5) H 11/05/23 19:09 Ur Squamous Epith Cells 0-4 /hpf (0-5) H 11/05/23 19:09 Triple Phos Crystals 5-10 /hpf H 11/05/23 19:09 Amorphous Sediment Not Reportable 11/05/23 19:09 Urine Bacteria 3+ /hpf (NONE) H 11/05/23 19:09 Coarse Granular Casts 5-10 /lpf H 11/05/23 19:09 Urine Mucus Trace /hpf 11/05/23 19:09 All radiology interpretation(s) finalized by discharge Discharge Plan Discharge Patient Disposition: Placed in Observation Clinical Impression: Acute UTI, MATILDA (acute kidney injury) Coding Level of Care Code ED [employer] Driller for Patrizia Corral
--- NOTE | 2023-11-05 19:12 | CTR_ITS ---
PROCEDURE INFORMATION: Exam: CTA Abdomen and Pelvis With Contrast Exam date and time: 11/05/2023 7:29 PM Age: 83 years old Clinical indication: Other: Atherosclerosis of celiac/sma; Abdominal pain; Generalized; Prior surgery; Surgery date: 6+ months; Surgery type: Gb. Hernia repair. Patient HX: Abd pain with n/v. 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 ; Additional info: Abd pain. HX sma stenosis. ? Sbo TECHNIQUE: Imaging protocol: Computed tomographic angiography of the abdomen and pelvis with contrast. Exam focused on the arteries. 3D rendering (Not supervised by radiologist): MIP and/or 3D reconstructed images were created by the technologist. Radiation optimization: All CT scans at this facility use at least one of these dose optimization techniques: automated exposure control; mA and/or kV adjustment per patient size (includes targeted exams where dose is matched to clinical indication); or iterative reconstruction. Contrast material: OMNI 350; Contrast volume: 200 ml; Contrast route: INTRAVENOUS (IV); COMPARISON: CT abdomen pelvis wo con [id number] 10/28/2023 2:08 PM RADIATION DOSE METRICS: Total DLP (mGy-cm): 1275.05 FINDINGS: Lungs: Trace right-sided pleural effusion. There is cardiomegaly with biatrial and right ventricular dilatation. Partially visualized pacemaker/ICD lead. Aorta: Moderate aortobiiliac atherosclerosis without aneurysmal dilatation or dissection. Celiac trunk and mesenteric arteries: Moderate narrowing of the origins of the celiac trunk and SMA secondary to densely calcified atherosclerotic plaque. No evidence of high-grade stenosis or occlusion. Renal arteries: Moderate narrowing of the proximal renal arteries bilaterally, left worse than right. No evidence of high-grade stenosis or occlusion. Right iliac arteries: Patent. Left iliac arteries: Patent. Liver: There is retrograde opacification of the hepatic veins in keeping with right heart failure. Very mild nodularity of the liver contour raising the question of hepatic cirrhosis. Gallbladder and bile ducts: Status post cholecystectomy. Mild central intrahepatic biliary dilatation. There is mild extrahepatic biliary dilatation, frequently seen post cholecystectomy. CBD measures up to 10 mm. No evidence of intraductal stone. Pancreas: Grossly unremarkable. Spleen: Grossly unremarkable. Adrenal glands: Grossly unremarkable. Kidneys and ureters: There are simple appearing renal cysts for which dedicated imaging follow-up is not required. Otherwise no evidence of renal parenchymal abnormality. No hydronephrosis or ureteral stone. Stomach and bowel: No bowel obstruction or perienteric inflammatory changes. There is mild bowel wall edema secondary to anasarca and/or hypoalbuminemia. Appendix: Normal appendix. Intraperitoneal space: Moderate free fluid/ascites, similar to prior exam from 10/28/2023. No evidence of pneumoperitoneum or fluid collection. Lymph nodes: Multiple prominent upper abdominal nodes, which may be secondary to lymphovascular congestion or reactive in the setting of cirrhosis. For example, there is a 14 mm short axis gastrohepatic node (image 46 of series 14). Urinary bladder: Moderate diffuse bladder wall thickening/haziness, significantly more prominent than on prior exam from 10/28/2023. Reproductive: Fibroid uterus. Bones/joints: No evidence of acute fracture or aggressive osseous lesion. Soft tissues: Diffuse superficial soft tissue edema. No evidence of fluid collection or hematoma in the superficial soft tissues. CT/CT angio abdomen pelvis [id number] IMPRESSION: 1. Anasarca with diffuse soft tissue edema and moderate intraperitoneal free fluid/ascites. No evidence of bowel obstruction. 2. Cardiomegaly with evidence of increased right-sided heart pressures. There is mild nodularity of the liver contour raising the question of cirrhosis (including cardiac cirrhosis). 3. Atherosclerosis without aneurysmal dilatation or dissection of the abdominal aorta.
[2023-11-05 19:33] LABS: Bilirubin Urine Neg (Negative); Blood Urine 3+ (Negative); Glucose Urine UA Norm (Normal); Ketones Urine 1+ (Negative); Nitrate Urine Negative (Negative); Protein Urine 2+ (Negative); Urine Appearance Turbid (CLEAR); Urine Color Dark Yellow (Yellow); Urobilinogen Urine Neg (Negative); pH Urine 9 (5-7)
[2023-11-05 19:34] LABS: Bacteria Urine 3+ /hpf; Leukocyte Esterase Urine 2+ (Negative); Mucus Urine TRACE /hpf; RBC Urine 15-25 /hpf (0-2); Squamous Epithelial Cell Urine 0-4 /hpf (0-5); WBC Urine 25-40 /hpf (0-5)
[2023-11-05 19:35] LABS: Sulfosalicylic Acid Urine Positive (Negative)
[2023-11-05 19:36] LABS: Add Urine Culture? Yes
--- NOTE | 2023-11-05 20:32 | P.HP_ITS ---
Providers/Chief Complaint 2 Primary Care Provider: Terence Rogers Chief Complaint: abd pain, n/v History of Present Illness Vaibhav Ramsey is a 83 year old female chronic conditions such as A-fib, chronic anticoagulation with Eliquis, last dose was in the morning, hypertension, liver cirrhosis, heart failure, pacemaker presented with chief complaint of worsening abdominal pain and vomiting. 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 No significant obstruction or occlusion. She is presenting with chief complaint of low blood pressure abdominal pain nausea vomiting. She has not noticed any fever but endorsing dysuria. Patient is stating that every time she eats her abdominal pain gets worse and then she experiences nausea and vomiting. Workup in the ER revealed leukocytosis no fever, she does have UTI, CT revealed mesenteric ischemic changes she does have thrombocytopenia, Goals of care discussed with the patient in front of her sons, she is DNR/DNI She is agreeable to hold Eliquis for paracentesis likely on Tuesday She is getting ceftriaxone Review of Systems 2 Const: Reports: chills Eyes: Denies: change in vision ENMT: Denies: throat pain Card: Denies: chest pain Resp: Reports: dyspnea GI: Reports: abdominal pain, nausea and vomiting : Reports: flank pain, difficulty voiding and urinary urgency Musc: Reports: back pain Skin/Breast: Reports: rash Medications/Allergies Home Medications Medication Instructions Recorded Confirmed Last Taken Type allopurinol 300 mg tablet 300 mg PO BID 07/31/19 10/29/23 10/29/23 History bimatoprost 0.01 % eye drops 1 drp ophthalmic (eye) BEDTIME 07/31/19 10/29/23 10/28/23 History (Mario Alberto) carbidopa 25 mg-levodopa 100 mg 1 tab PO TID 07/31/19 10/29/23 10/29/23 History tablet clonazepam 1 mg tablet 1 mg PO BEDTIME 07/31/19 10/29/23 10/28/23 History cyanocobalamin (vitamin B-12) 1,000 mcg IM Q30D 07/31/19 10/29/23 10/24/23 History 1,000 mcg/mL injection solution oxycodone-acetaminophen 10 mg-325 1 tab PO Q8H PRN Pain, Mild 07/31/19 10/29/23 11/09/22 History mg tablet pramipexole 0.5 mg tablet 1 mg PO BEDTIME 07/31/19 10/29/23 10/28/23 History pravastatin 40 mg tablet 40 mg PO DAILY 07/31/19 10/29/23 10/29/23 History sennosides 8.6 mg-docusate sodium 1 tab-cap PO BID PRN Constipation 07/31/19 10/29/23 08/29/22 History 50 mg tablet nitroglycerin 0.4 mg sublingual 0.4 mg sublingual Q5M PRN chest 12/10/19 10/29/23 07/06/20 20:00 Rx tablet pain 30 days #30 tabs magnesium hydroxide 400 mg/5 mL 30 ml PO DAILY PRN Constipation 12/15/19 10/29/23 07/05/20 09:00 History oral suspension (Milk of Magnesia) omeprazole 40 mg capsule,delayed 40 mg PO BID 12/15/19 10/29/23 10/29/23 History release calcium carbonate 600 mg-vitamin 1 tab PO DAILY 06/22/20 10/29/23 10/29/23 History D3 5 mcg (200 unit) tablet (Calcium 600 + D(3)) potassium chloride 10 mEq 20 meq PO DAILY PRN Edema 07/15/20 10/29/23 09/26/23 History tablet,extended release (Klor-Con) fluticasone propionate 50 2 spray intranasal QAM PRN 10/27/20 10/29/23 09/26/23 History mcg/actuation nasal ALLERGIES spray,suspension (Flonase Allergy Relief) trazodone 50 mg tablet 50 mg PO BEDTIME 07/02/21 10/29/23 10/28/23 History post mastectomy Bras #4 ea 01/14/22 10/29/23 Unknown Rx apixaban 2.5 mg tablet 2.5 mg PO BID #90 tabs 03/16/22 10/29/23 10/29/23 Rx levothyroxine 100 mcg tablet 100 mcg PO DAILY 08/30/22 10/29/23 10/29/23 History albuterol sulfate 90 mcg/actuation 2 puff inhalation Q6H PRN 09/01/22 10/29/23 Unknown History aerosol inhaler Shortness Of Breath naloxone 4 mg/actuation nasal spray 4 mg intranasal Q3M PRN overdose 09/01/22 10/29/23 Unknown History spironolactone 25 mg tablet 25 mg PO DAILY 09/01/22 10/29/23 10/29/23 History insulin glargine 100 unit/mL 10 unit SUBCUT BEDTIME 11/09/22 10/29/23 10/28/23 History subcutaneous solution (Lantus U-100 Insulin) furosemide 20 mg tablet 40 mg (2 x 20 mg) PO DAILY #30 tabs 11/12/22 10/29/23 10/29/23 Rx budesonide 160 mcg-glycopyr 9 2 inh inhalation BID #10.7 grams 05/25/23 10/29/23 10/29/23 Rx mcg-formot 4.8 mcg/actuation HFA inhaler (Breztri Aerosphere) isosorbide mononitrate 60 mg 60 mg PO DAILY 09/26/23 10/29/23 10/29/23 History tablet,extended release 24 hr metoprolol tartrate 25 mg tablet 25 mg PO BID 09/26/23 10/29/23 10/29/23 History zinc acetate 25 mg (zinc) capsule 25 mg PO DAILY 09/26/23 10/29/23 10/29/23 History baclofen 5 mg tablet 5 mg PO DAILY 10/29/23 10/29/23 10/29/23 History buspirone 5 mg tablet 5 mg PO DAILY 10/29/23 10/29/23 10/29/23 History hydrocodone 5 mg-acetaminophen 325 1 tab PO Q6H PRN pain #14 tabs 10/29/23 Unknown Rx mg tablet latanoprost 0.005 % eye drops 1 drp ophthalmic (eye) QAM 10/29/23 10/29/23 Unknown History metolazone 5 mg tablet See Rx Instructions .Route .COMPLEX 10/29/23 10/29/23 Unknown History ondansetron 4 mg disintegrating 4 mg PO Q6H PRN nausea and 10/29/23 Unknown Rx tablet vomiting #14 tabs sertraline 100 mg tablet 100 mg PO DAILY 10/29/23 10/29/23 10/29/23 History Allergies Allergy/AdvReac Type Severity Reaction Status Date / Time codeine Allergy patient Verified 11/05/23 21:05 doesn't recall flecainide Allergy severe Verified 11/05/23 21:05 vomiting Iodinated Contrast Media Allergy renal Verified 11/05/23 21:05 disease naproxen Allergy renal Verified 11/05/23 21:05 disease Penicillins Allergy hives Verified 11/05/23 21:05 shellfish derived Allergy unknown Verified 11/05/23 21:05 Sulfa (Sulfonamide Allergy itching Verified 11/05/23 21:05 Antibiotics) tramadol AdvReac makes me Verified 11/05/23 21:05 crazy garlic Allergy unknown Uncoded 11/05/23 21:06 PFSH Acute 2 PFSH: Medical History (Updated 11/05/23 @ 21:10 by Marbella Matthew MD) Enterovirus infection, unspecified CHF exacerbation Community acquired pneumonia Fracture of distal end of right fibula Lung nodule, solitary Restrictive lung disease Restrictive lung disease Transaminitis Mild. Most likely due to passive congestion due her CHF. Lumbar stenosis with neurogenic claudication Difficulty in swallowing High anion gap metabolic acidosis Bilateral renal cysts On multiple imaging modalities all appear simple. No further work-up recommended December 2020 Pacemaker Right bundle branch block Supraventricular tachycardia COVID-19 Elevated troponin Chest pain Chronic respiratory failure with hypoxia and hypercapnia GERD (gastroesophageal reflux disease) Atypical chest pain Cardiac [place] [address] [place]. She had no significant coronary artery disease at that time. Chronic kidney disease Diastolic heart failure Osteoarthritis Syncope Chronic kidney disease -baseline Cr appears to be around 2-2.3 - Symptomatic bradycardia UTI (urinary tract infection) - Bradycardia Anemia -on iron supplementation Intermittent atrial fibrillation COPD (chronic obstructive pulmonary disease) Uses 3 L [id number] and BiPAP at night Gout Former smoker Normal coronary angiogram Cardiac angiogram done in September 2015 Chronic back pain History of pulmonary embolism -is on AC with Eliquis Hypothyroidism Type 2 diabetes mellitus Hypertension Diastolic heart failure Chronic anticoagulation Paroxysmal A-fib Surgical History (Updated 11/05/23 @ 21:10 by Marbella Matthew MD) Postoperative state Status post lumbar laminectomy H/O right mastectomy History of tonsillectomy H/O hernia repair H/O colonoscopy 2019 H/O esophagogastroduodenoscopy (~04/2020) 2020 H/O left knee surgery Tubal ligation status History of cholecystectomy Family History Father CAD (coronary artery disease) Family history of premature coronary artery disease Hypertension Mother Cancer Chronic kidney disease (CKD) Hypertension Sister Hyperlipidemia Hypertension Daughter No problems noted. Other Diabetes Social History Smoking and tobacco/nicotine status: former use of tobacco/nicotine Quit status (tobacco/nicotine): has quit using Year quit tobacco: 1970 - 1PPD x 25 Years Alcohol intake: never Substance/Drug Use: never Caregiver/support person: Yes Lives independently: Yes Household members: family Housing: House Marital status: / Current occupational status: retired Do you think of yourself as: Straight/Heterosexual Vitals/I&O/Wt Last Vital Signs Temp 97.6 F 11/05/23 17:40 Pulse 60 11/05/23 20:22 Resp 18 11/05/23 20:22 BP 104/58 11/05/23 20:22 Pulse Ox 97 11/05/23 20:22 O2 Del Method Room Air 11/05/23 18:35 O2 Flow Rate 3 11/05/23 17:40 Weight last 48 hrs Weight 61.235 kg Physical Exam 2 Narrative: Patient is awake and alert Laying supine Abdominal distention Ascites Tender on deep palpation Paced rhythm Hemodynamic stable Currently on 3 L cannula GCS 15 Nonfocal neuroexam Family at the bedside Data 11/05/23 17:45 11/05/23 17:45 A&P Assessment and plan (1) Pacemaker: (2) Atrial fibrillation: (3) Sinus node dysfunction: (4) Intermittent atrial fibrillation: (5) Gastritis and duodenitis: (6) Abdominal pain: Qualifiers: Abdominal location: generalized Qualified Code(s): R10.84 - Generalized abdominal pain (7) 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: (8) MATILDA (acute kidney injury): (9) DNR (do not resuscitate): (10) Acute UTI: (11) MATILDA (acute kidney injury): (12) Obstructive sleep apnea: Plan Acute on chronic mesenteric ischemia Atherosclerotic disease noted on CT abdomen pelvis No active high-grade lesion or stenosis Patient does not want to get vascular opinion from [place] at this point Agreeable to stay in the hospital I will give her IV fluids and ceftriaxone 2 g daily I will give her IV Dilaudid for now for her abdominal pain Acute UTI Metabolic encephalopathy Start ceftriaxone Request urine culture Previous urine culture positive for E. coli Intermittent A-fib: Hold Eliquis for paracentesis Rule out SBP Start ceftriaxone Last dose of Eliquis was on 10/28 7 in the morning Acute on chronic kidney disease Likely related to third spacing of dehydration I will give her gentle fluid hydration If blood pressure does not improve will use albumin Hold nephrotoxic agents Hypotensive: Related to hypovolemia Hold antihypertensive regimen Along Lasix spironolactone Liver cirrhosis no acute decompensation Etiology of liver cirrhosis seems to be heart failure Patient is not sure about the etiology though Generalized weakness fatigue weight loss, limited functional capacity, uses a walker at home, uses 3 L of oxygen [id number] at home DNR/DNI goals of care discussed with the patient in front of her sons She may benefit from a palliative consultation/referral at the time of discharge Attestations 2 Medical Necessity Statement*: More than 2 midnights anticipated Diagnoses Pacemaker Z95.0 Atrial fibrillation I48.91 Sinus node dysfunction I49.5 Intermittent atrial fibrillation I48.0 Gastritis and duodenitis K29.90 Abdominal pain R10.84 Abdominal location: generalized 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 K55.1 MATILDA (acute kidney injury) N17.9 DNR (do not resuscitate) Z66 Acute UTI N39.0 Obstructive sleep apnea G47.33
[2023-11-05] MEDS: cefTRIAXone 1,000 MG in sodium chloride 0.9% (plus) 50 ML 100 MG IV (21:09)
[2023-11-05] MEDS: sodium chloride 0.9% 1,000 ML 75 ML IV (21:34)
[2023-11-05 21:43] LABS: Glucose Point of Care 144 mg/dL (70-110)
[2023-11-05] MEDS: lidocaine 2% viscous 15 ML, aluminum-mag hydrox-simethicon 30 ML, sucralfate oral liq 1 GM PO (22:11)
[2023-11-05] MEDS: CLONazepam 1 mg Tablet PO (22:11)
[2023-11-05] MEDS: carbidopa-levodopa 25-100mg Tablet 1 EACH PO (22:11)
[2023-11-05] MEDS: pramipexole 0.25 mg Tablet 1 MG PO (22:11)
[2023-11-05] MEDS: insulin glargine 100 units/1 mL 5 UNIT SUBCUT (22:12)
[2023-11-05] MEDS: HYDROmorphone 1 mg/mL INJ 1 mL 0.200000000000000011 MG IVP (22:16)
[2023-11-05] MEDS: sodium chloride 0.9% 1,000 ML 999 ML IV (23:55)
[2023-11-06] VITALS (14 sets, daily range): BP systolic 89–132; BP diastolic 46–72; PULSE 59–80; RESP 12–19; TEMP 36.2–36.6; O2SAT 97–100
[2023-11-06 01:11] LABS: Glucose Point of Care 153 mg/dL (70-110)
[2023-11-06 04:43] LABS: Basophils % 0.1 %; Eosinophils # 0.1 10^3/uL (0.0-0.8); Eosinophils % 0.6 %; Hematocrit 37.2 % (36-47); Lymphocytes # 1.1 10^3/uL (0.8-4.8); Lymphocytes % 13.4 %; Mean Corpuscular HGB Conc 28.5 g/dL (30-55); Mean Corpuscular Hemoglobin 29.5 pg (27-33); Mean Corpuscular Volume 103.6 fl (85-98); Mean Platelet Volume 13.5 fL (7.4-10.4); Monocytes # 0.5 10^3/uL (0.2-0.9); Monocytes % 5.6 %; Neutrophils # 6.57 10^3/uL (1.8-7.7); Neutrophils % 79.9 %; Nucleated Red Blood Cells % 0 %; Platelet Count 80 10^3/cmm (157-399); Red Blood Count 3.59 10^6/uL (3.85-5.65); Red Cell Distribution Width 17.2 % (12.1-15.1); White Blood Count 8.22 10^3/uL (3.29-11.43)
[2023-11-06 05:01] LABS: Alanine Aminotransferase < 5 U/L (0-33); Albumin Level 2.9 g/dL (3.5-5.2); Alkaline Phosphatase 165 U/L (35-105); Anion Gap 14.6 (5-19); Aspartate Amino Transferase 16 U/L (0-32); Blood Urea Nitrogen 56 mg/dL (8-23); Calcium 7.7 mg/dL (8.5-10.5); Carbon Dioxide 21 mmol/L (22-29); Chloride 117 mmol/L (98-107); Creatinine Clr Calc Pharmacy 26.0433; Globulin 1.8 g/dL (1.3-4.6); Glucose 129 mg/dL (65-115); Magnesium 2.1 mg/dL (1.7-2.3); Osmolality Calculated 323 mOsm/kg (285-295); Potassium 4.6 mmol/L (3.5-5.1); Sodium 148 mmol/L (136-145); Total Bilirubin 0.3 mg/dL (0.15-1.2); Total Protein 4.7 g/dL (6.6-8.7)
[2023-11-06] MEDS: levothyroxine 100 mcg Tablet PO (06:19)
[2023-11-06 06:39] LABS: Glucose Point of Care 119 mg/dL (70-110)
[2023-11-06] MEDS: carbidopa-levodopa 25-100mg Tablet 1 EACH PO (08:58)
[2023-11-06] MEDS: pantoprazole 40 mg SDV IVP ×2 (08:58→18:00)
[2023-11-06] MEDS: allopurinol 300 mg Tablet PO (08:59)
[2023-11-06] MEDS: meropenem 1,000 MG in sodium chloride 0.9% (plus) 50 ML 100 MG IV ×2 (09:09→19:10)
--- NOTE | 2023-11-06 10:23 | PC.SLP ---
Pt requested for the therapist to come back. Therapist will attempt to see once again.
[2023-11-06 10:27] LABS: HIV 1 & 2 Antibody Non-Reactive (Non-Reactiv); HIV 1 & 2 Antigen Non-Reactive (Non-Reactiv)
[2023-11-06] MEDS: heparin 5,000 unit/mL INJ 1 mL IV (10:32)
[2023-11-06] MEDS: heparin drip 25,000 UNIT/500 ML PREMIX 21.6700000000000017 UNIT IV (10:32)
[2023-11-06 10:45] LABS: Hepatitis A Antibody IgM Non-Reactive (Nonreactive); Hepatitis B Core IgM Non-Reactive (Nonreactive); Hepatitis B Surface Antigen Non-Reactive (Nonreactive); Hepatitis C Virus Antibody Non-Reactive (Nonreactive)
[2023-11-06] MEDS: metroNIDAZOLE IV 500 MG/100 ML PREMIX 100 MG IV ×2 (10:46→18:00)
[2023-11-06] MEDS: fluconazole 100 mg Tablet PO (10:46)
[2023-11-06 11:38] LABS: Glucose Point of Care 99 mg/dL (70-110)
--- NOTE | 2023-11-06 11:59 | PM.OBGYCN ---
Providers/Reason for Consult Consulting Physican/Specialty*: Paulina Nunez DO/OPERATIONS OFFICER consult Reason for Consult*: Vaginal pain and discharge Attending Physician: Vignesh Garibay MD Primary Care Provider: Terence Rogers [employer]SMISSION SPECIALIST Consult HPI History of Present Illness Vaibhav Ramsey is a 83 year old female admited with Abdomen pain yesterday with associated Nausea and vomiting. Pt denies vaginal pain or bleeding, but does admit to discharge and itching. She denies sexual activity. Lab- reviewed with Dx of UTI Abd CT- ascites fluid noted (etiology uncertain if Liver but liver palpates enlarged) Review of Systems : Reports: flank pain, genital pruritis, vaginal dryness and vaginal discharge Medications/Allergies Home Medications Medication Instructions Recorded Confirmed Last Taken Type allopurinol 300 mg tablet 300 mg PO BID 07/31/19 11/05/23 10/29/23 History bimatoprost 0.01 % eye drops 1 drp ophthalmic (eye) BEDTIME 07/31/19 11/05/23 10/28/23 History (Mario Alberto) carbidopa 25 mg-levodopa 100 mg 1 tab PO TID 07/31/19 11/05/23 10/29/23 History tablet clonazepam 1 mg tablet 1 mg PO BEDTIME 07/31/19 11/05/23 10/28/23 History cyanocobalamin (vitamin B-12) 1,000 mcg IM Q30D 07/31/19 11/05/23 10/24/23 History 1,000 mcg/mL injection solution oxycodone-acetaminophen 10 mg-325 1 tab PO Q8H PRN Pain, Mild 07/31/19 11/05/23 11/09/22 History mg tablet pramipexole 0.5 mg tablet 1 mg PO BEDTIME 07/31/19 11/05/23 10/28/23 History pravastatin 40 mg tablet 40 mg PO DAILY 07/31/19 11/05/23 10/29/23 History sennosides 8.6 mg-docusate sodium 1 tab-cap PO BID PRN Constipation 07/31/19 11/05/23 08/29/22 History 50 mg tablet nitroglycerin 0.4 mg sublingual 0.4 mg sublingual Q5M PRN chest 12/10/19 11/05/23 07/06/20 20:00 Rx tablet pain 30 days #30 tabs magnesium hydroxide 400 mg/5 mL 30 ml PO DAILY PRN Constipation 12/15/19 11/05/23 07/05/20 09:00 History oral suspension (Milk of Magnesia) omeprazole 40 mg capsule,delayed 40 mg PO BID 12/15/19 11/05/23 10/29/23 History release calcium carbonate 600 mg-vitamin 1 tab PO DAILY 06/22/20 11/05/23 10/29/23 History D3 5 mcg (200 unit) tablet (Calcium 600 + D(3)) potassium chloride 10 mEq 20 meq PO DAILY PRN Edema 07/15/20 11/05/23 09/26/23 History tablet,extended release (Klor-Con) fluticasone propionate 50 2 spray intranasal BEDTIME PRN 10/27/20 11/05/23 09/26/23 History mcg/actuation nasal ALLERGIES spray,suspension (Flonase Allergy Relief) trazodone 50 mg tablet 50 mg PO BEDTIME 07/02/21 11/05/23 10/28/23 History post mastectomy Bras #4 ea 01/14/22 11/05/23 Unknown Rx apixaban 2.5 mg tablet 2.5 mg PO BID #90 tabs 03/16/22 11/05/23 10/29/23 Rx levothyroxine 100 mcg tablet 100 mcg PO DAILY 08/30/22 11/05/23 10/29/23 History albuterol sulfate 90 mcg/actuation 2 puff inhalation Q4H PRN 09/01/22 11/05/23 Unknown History aerosol inhaler Shortness Of Breath naloxone 4 mg/actuation nasal spray 4 mg intranasal Q3M PRN overdose 09/01/22 11/05/23 Unknown History spironolactone 25 mg tablet 25 mg PO DAILY 09/01/22 11/05/23 10/29/23 History insulin glargine 100 unit/mL 10 unit SUBCUT BEDTIME 11/09/22 11/05/23 10/28/23 History subcutaneous solution (Lantus U-100 Insulin) budesonide 160 mcg-glycopyr 9 2 inh inhalation BID #10.7 grams 05/25/23 11/05/23 10/29/23 Rx mcg-formot 4.8 mcg/actuation HFA inhaler (Breztri Aerosphere) isosorbide mononitrate 60 mg 60 mg PO DAILY 09/26/23 11/05/23 10/29/23 History tablet,extended release 24 hr metoprolol tartrate 25 mg tablet 25 mg PO BID 09/26/23 11/05/23 10/29/23 History zinc acetate 25 mg (zinc) capsule 25 mg PO DAILY 09/26/23 11/05/23 10/29/23 History baclofen 5 mg tablet 5 mg PO BID PRN Spasms 10/29/23 11/05/23 10/29/23 History buspirone 5 mg tablet 5 mg PO DAILY 10/29/23 11/05/23 10/29/23 History latanoprost 0.005 % eye drops 1 drp ophthalmic (eye) QAM 10/29/23 11/05/23 Unknown History sertraline 100 mg tablet 100 mg PO DAILY 10/29/23 11/05/23 10/29/23 History furosemide 20 mg tablet 20 mg PO DAILY 11/05/23 11/05/23 Unknown History pantoprazole 40 mg tablet,delayed 40 mg PO DAILY 11/05/23 11/05/23 Unknown History release Allergies Allergy/AdvReac Type Severity Reaction Status Date / Time codeine Allergy patient Verified 11/05/23 21:05 doesn't recall flecainide Allergy severe Verified 11/05/23 21:05 vomiting Iodinated Contrast Media Allergy renal Verified 11/05/23 21:05 disease naproxen Allergy renal Verified 11/05/23 21:05 disease Penicillins Allergy hives Verified 11/05/23 21:05 shellfish derived Allergy unknown Verified 11/05/23 21:05 Sulfa (Sulfonamide Allergy itching Verified 11/05/23 21:05 Antibiotics) tramadol AdvReac makes me Verified 11/05/23 21:05 crazy garlic Allergy unknown Uncoded 11/05/23 21:06 Current Medications Generic Name Dose Route Start Last Admin Trade Name Pedritoq PRN Reason Stop Dose Admin Allopurinol 300 mg 11/06/23 09:00 11/06/23 08:59 Allopurinol 300 Mg Tablet PO 300 mg BID GONZALO Administration Carbidopa/Levodopa 1 each 11/05/23 21:27 11/06/23 08:58 Carbidopa-Levodopa 25-100mg Tablet PO 1 each TID GONZALO Administration Clonazepam 1 mg 11/05/23 21:27 11/05/23 22:11 Clonazepam 1 Mg Tablet PO 1 mg BEDTIME GONZALO Administration Fluconazole 100 mg 11/06/23 09:45 11/06/23 10:46 Fluconazole 100 Mg Tablet PO 100 mg DAILY GONZALO Administration Heparin Sodium (Porcine) 0 unit 11/06/23 08:05 11/06/23 10:32 Heparin 5,000 Unit/Ml Inj 1 Ml IV 3,900 unit PRN PRN Administration Heparin weight-base protocol Protocol Hydromorphone HCl 0.2 mg 11/05/23 21:27 11/05/23 22:16 Hydromorphone 1 Mg/Ml Inj 1 Ml IVP 0.2 mg Q4H PRN Administration SEVERE PAIN Sodium Chloride 1,000 mls @ 50 mls/hr 11/05/23 21:27 11/06/23 11:09 Sodium Chloride 0.9% IV Infused .Q20H GONZALO Infusion Heparin Sodium/Sodium Chloride 25,000 unit in 500 mls @ 0 mls/hr 11/06/23 08:15 11/06/23 10:32 Heparin Drip IV 14 unit/kg/hr .Q0M GONZALO 21.67 mls/hr Administration Protocol Per Protocol Meropenem 1,000 mg/ Sodium 50 mls @ 100 mls/hr 11/06/23 08:15 11/06/23 11:10 Chloride IV Infused Q12H GONZALO Infusion Protocol Metronidazole 500 mg in 100 mls @ 100 mls/hr 11/06/23 09:45 11/06/23 10:46 Flagyl Iv IV 100 mls/hr Q8H GONZALO Administration Protocol Insulin Glargine 5 unit 11/05/23 21:27 11/05/23 22:12 Insulin Glargine 100 Units/1 Ml SUBCUT 5 unit BEDTIME GONZALO Administration Insulin Human Lispro 0 unit 11/06/23 08:00 11/06/23 08:59 Insulin Lispro 100 Unit/1 Ml SUBCUT Not Given [facility] Protocol Levothyroxine Sodium 100 mcg 11/06/23 07:00 11/06/23 06:19 Levothyroxine 100 Mcg Tablet PO 100 mcg ACBREAKFAST GONZALO Administration Pantoprazole Sodium 40 mg 11/06/23 09:00 11/06/23 08:58 Pantoprazole 40 Mg Sdv IVP 40 mg BID GONZALO Administration Pramipexole Dihydrochloride 1 mg 11/05/23 21:34 11/05/23 22:11 Pramipexole 0.25 Mg Tablet PO 1 mg BEDTIME GONZALO Administration PFS [employer] SPECIALIST PFSH: Medical History (Updated 11/06/23 @ 12:21 by Paulina Nunez DO) Enterovirus infection, unspecified CHF exacerbation Community acquired pneumonia Fracture of distal end of right fibula Lung nodule, solitary Restrictive lung disease Restrictive lung disease Transaminitis Mild. Most likely due to passive congestion due her CHF. Lumbar stenosis with neurogenic claudication Difficulty in swallowing High anion gap metabolic acidosis Bilateral renal cysts On multiple imaging modalities all appear simple. No further work-up recommended December 2020 Pacemaker Right bundle branch block Supraventricular tachycardia COVID-19 Elevated troponin Chest pain Chronic respiratory failure with hypoxia and hypercapnia GERD (gastroesophageal reflux disease) Atypical chest pain Cardiac [place] [address] [place]. She had no significant coronary artery disease at that time. Chronic kidney disease Diastolic heart failure Osteoarthritis Syncope Chronic kidney disease -baseline Cr appears to be around 2-2.3 - Symptomatic bradycardia UTI (urinary tract infection) - Bradycardia Anemia -on iron supplementation Intermittent atrial fibrillation COPD (chronic obstructive pulmonary disease) Uses 3 L [id number] and BiPAP at night Gout Former smoker Normal coronary angiogram Cardiac angiogram done in September 2015 Chronic back pain History of pulmonary embolism -is on AC with Eliquis Hypothyroidism Type 2 diabetes mellitus Hypertension Diastolic heart failure Chronic anticoagulation Paroxysmal A-fib Surgical History (Updated 11/05/23 @ 21:10 by Marbella Matthew MD) Postoperative state Status post lumbar laminectomy H/O right mastectomy History of tonsillectomy H/O hernia repair H/O colonoscopy 2019 H/O esophagogastroduodenoscopy (~04/2020) 2020 H/O left knee surgery Tubal ligation status History of cholecystectomy Family History Father CAD (coronary artery disease) Family history of premature coronary artery disease Hypertension Mother Cancer Chronic kidney disease (CKD) Hypertension Sister Hyperlipidemia Hypertension Daughter No problems noted. Other Diabetes Social History Smoking and tobacco/nicotine status: former use of tobacco/nicotine Quit status (tobacco/nicotine): has quit using Year quit tobacco: 1970 - 1PPD x 25 Years Alcohol intake: never Substance/Drug Use: never Caregiver/support person: Yes Lives independently: Yes Household members: family Housing: House Marital status: / Current occupational status: retired Do you think of yourself as: Straight/Heterosexual Vitals/I&O/Wt Last Vital Signs Temp 97.5 F L 11/06/23 07:00 Pulse 61 11/06/23 09:08 Resp 18 11/06/23 09:08 BP 103/65 11/06/23 07:00 Pulse Ox 98 11/06/23 09:08 O2 Del Method Nasal Cannula 11/06/23 09:08 O2 Flow Rate 3 11/06/23 09:08 11/05/23 11/06/23 11/06/23 22:59 06:59 14:59 Intake Total 50 / 50 1000 / 1050 1050 / 1050 Output Total 150 / 150 Balance 50 / 50 850 / 900 1050 / 1050 Weight last 48 hrs Weight 77.383 kg Weight 75.523 kg Weight 61.235 kg Physical Exam Narrative: 83yo female awakens easily, and answers questions appropriately. She verbally consents to pelvic exam. Back/Pelvis: OTHER: Abd- soft, distended, Firm RUQ Liver margins palpated. Diffuse TTP RUQ,LUQ, RLQ,LLQ. Hyperactive Bowel sounds throughout all Quads. No Guarding but discomfort noted. External Genital Exam- Mons very puffy but pt may have been obese in past for this presentation. External Labia with multiple white papular lesions- chronic follicular lesions Internal Labia no lesions Sterile Speculum Exam- Vaginal vault visualized, pale and atrophic, no lesions or bleeding noted. Small amount of clear vaginal discharge noted. Atrophic cervix no lesions noted. Extremity: COMMON NORMALS: normal to inspection, no clubbing, cyanosis or edema and no calf tenderness Urinary Catheter Management: Ferrari: Cath Placed During This Visit: yes Reason for Continuing Indwelling Catheter: Acute Urinary Retention or Obstruction Urinary Catheter Date of Insertion: 11/06/23 Urinary Catheter Time of Insertion: 00:34 Data 11/06/23 04:15 11/06/23 04:15 Micro: Microbiology 11/05/23 04:15 Blood Culture - Preliminary Blood SPECIMEN COLLECTED 11/05/23 20:58 Blood Culture - Preliminary Blood SPECIMEN COLLECTED CT Abd/Pel: I personally reviewed and interpreted this imaging study as follows: A&P Assessment and plan (1) Clear vaginal discharge: (2) Vaginal itching: (3) Abdominal distention: (4) Ascitic fluid: Plan P. 1. Order Ca 125 to r/o Ovarian Ca which could be source of watery discharge and ascites. 2. Await culture results GC,chlamydia and Trich. 3. Will check result 11/07/23 and assist with treatment if needed. Consult Attestations Time Spent in Patient Care: 16 - 35 minutes Coding Level of Care Code Acute Code for Chg Fwd Diagnoses Clear vaginal discharge N89.8 Vaginal itching N89.8 Abdominal distention R14.0 Ascitic fluid R18.8
[2023-11-06] MEDS: sodium chloride 0.9% 1,000 ML 50 ML IV (12:08)
[2023-11-06 12:17] LABS: CA 125 373.1 U/mL (0-35)
--- NOTE | 2023-11-06 12:31 | USR_ITS ---
PROCEDURE INFORMATION: Exam: US Pelvis, Transvaginal Exam date and time: 11/06/2023 3:10 PM Age: 83 years old Clinical indication: Abnormal findings; Abnormal lab test; Elevated ca-125; Prior surgery; Surgery date: 6+ months; Surgery type: HX of tubal ligation; Additional info: High ca125/ascites, transvaginal TECHNIQUE: Imaging protocol: Real-time transvaginal pelvic ultrasound with image documentation. Transvaginal imaging was used for better evaluation of the endometrium, adnexa, and/or cervix. COMPARISON: CT angio abdomen pelvis [id number] 11/05/2023 7:29 PM FINDINGS: Uterus: Multiple uterine fibroids with internal calcifications. Endometrial thickness measures 7 mm. The uterus measures 7.9 x 3.1 x 3.5 cm. Right ovary/adnexa: Not visualized. Left ovary/adnexa: Not visualized. Intraperitoneal space: Moderate free fluid. US/US transvaginal [id number] IMPRESSION: 1. Moderate free fluid. 2. Uterine fibroids.
[2023-11-06 17:17] LABS: Glucose Point of Care 151 mg/dL (70-110)
--- NOTE | 2023-11-06 17:24 | USCV_ITS ---
Vaibhav Ramsey Age: 83 Gender: F : 1940 Exam Date: 11/06/2023 18:22 Ordering Phys: Vignesh Garibay MD Technologist: Luis Biggs [place]am Location[place] [facility] [place]ication: chf BP: 124 / 69 HR: 60 Rhythm: Sinus Technical Quality: Adequate MEASUREMENTS (Male / Female) Normal Values 2D ECHO LV Diastolic Diameter PLAX 4.7 cm 4.2 - 5.9 / 3.9 - 5.3 cm IVS Diastolic Thickness 1.0 cm 0.6 - 1.0 / 0.6 - 0.9 cm IVS Systolic Thickness 1.3 cm LVPW Diastolic Thickness 1.8 cm 0.6 - 1.0 / 0.6 - 0.9 cm LVPW Systolic Thickness 2.2 cm LVOT Diameter 2.0 cm LV Ejection Fraction 2D Teich 82.7 % LV Ejection Fraction MOD 2C 62.8 % LV Ejection Fraction 2C AL 70.4 % LA Diameter 4.5 cm RA Systolic Volume 4C AL 85.3 ml RA Systolic Volume 4C MOD 85.3 ml LA Sys Volume AL 79.8 cm cubed LA Sys Volume Index AL 42.2 cm cubed/m squared Aorta at Sinotubular Diameter 2.1 cm IVC Diameter 2.6 cm M-MODE LA Ao Ratio MM 1.9 AV Cusp Separation MM 1.5 cm DOPPLER AV Peak Velocity 124.0 cm/s LVOT Peak Velocity 66.0 cm/s AV Area Cont Eq vti 1.9 cm squared AV Area Cont Eq pk 1.7 cm squared MV Peak Velocity 354.6 cm/s MV Area PHT 2.7 cm squared Mitral E to A Ratio 60.3 TR Peak Velocity 340.0 cm/s TR Peak Gradient 46.2 mmHg TR Mean Velocity 256.0 cm/s TR Mean Gradient 29.1 mmHg TR Velocity Time Integral 89.7 cm PV Peak Velocity 79.0 cm/s RV Ejection Time 0.3 s FINDINGS Left Ventricle Normal left ventricular size and systolic function, EF 70%. Moderate left ventricular hypertrophy. Abnormal septal motion consistent with conduction abnormality. Right Ventricle Normal right ventricular size and systolic function. Pacemaker wire is noted Right Atrium Moderately increased right atrial size. Catheter/pacemaker wire in the right atrial cavity. Left Atrium Moderately increased left atrial size. Mitral Valve Moderate to heavy mitral annular calcification. Thickened mitral valve.moderate-severe mitral valve regurgitation. Peak velocity of 2.46 m/s with a peak gradient of 24 and a mean gradient of 5 mmHg the mitral valve area was 2.7 cm squared Aortic Valve Thickened aortic valve. Tricuspid Valve Pqklxgyd-[id number] tricuspid valve regurgitation. Moderate pulmonary hypertension with a peak pulmonary artery systolic pressure of 61 mmHg. The mean pressure was 41 mmHg Pulmonic Valve No gross abnormalities noted Pericardium Normal pericardium without effusion. Aorta Normal ascending aorta dimension. IVC Dilated IVC with decreased respiratory variation. CONCLUSIONS Normal left ventricular size and systolic function, EF 70%. Moderate left ventricular hypertrophy. Abnormal septal motion consistent with conduction abnormality. Moderate biatrial enlargementModerate to heavy mitral annular calcification. Thickened mitral valve.moderate-severe mitral valve regurgitation. Peak velocity of 2.46 m/s with a peak gradient of 24 and a mean gradient of 5 mmHg the mitral valve area was 2.7 cm squared. Thickened aortic valve. Fvlhflgi-[id number]-rruoyv tricuspid valve regurgitation. Moderate pulmonary hypertension with a peak pulmonary artery systolic pressure of 61 mmHg. The mean pressure was 41 mmHg There is no pericardial effusion. There are no intracardiac masses. Compared to the study from 02/18/2023 , there is worsening of the tricuspid regurgitation and pulmonary hypertension Dr Vanessa Gregorio MD [facility] (Electronically Signed) Final Date: 07 November 2023 10:06 S
--- NOTE | 2023-11-06 17:24 | ECG_ITS ---
[facility] Test Date: 2023-11-06 Pat Name: Vaibhav Ramsey Department: Room: 258 Gender: Female [employer] Agent: : 1940 Requested By: Vignesh Garibay Order Number: [id number] Rodolfo MD: Vanessa Gregorio M.D. Measurements Intervals [place] Rate: 60 P: 0 [place]: 0 QRS: -75 QRSD: 177 T: 106 QT: 482 QTc: 482 Interpretive Statements ELECTRONIC VENTRICULAR PACEMAKER ABNORMAL RHYTHM ECG Compared to ECG 09/26/2023 16:24:11 Prolonged QT interval no longer present Electronically Signed On 11-06-2023 22:48:26 CDT by Vanessa Gregorio M.D. [email or web address]
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
--- NOTE | 2023-11-06 18:00 | PC.NURSE ---
Lab delay in obtaining PTT.
[2023-11-06 18:14] LABS: Ferritin 451 ng/mL (15-150); NT Pro B Type Natriuretic Pept 21106 pg/mL (0-450); Thyroid Stimulating Hormone 6.94 uIU/mL (0.27-4.20); Vitamin B12 1843 pg/mL (232-1245)
--- NOTE | 2023-11-06 19:24 | ECG_ITS ---
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 Measurements Intervals [place] Rate: 69 P: 0 HI: 0 QRS: -82 QRSD: 193 T: 96 QT: 493 QTc: 531 Interpretive Statements ELECTRONIC VENTRICULAR PACEMAKER ABNORMAL RHYTHM ECG Compared to ECG 11/06/2023 18:10:17 No significant changes Electronically Signed On 11-06-2023 22:52:26 CDT by Vanessa Gregorio M.D. [email or web address]
[2023-11-06] MEDS: fluconazole premix 100 MG in empty flexible container 1 EACH 50 MG IV (19:35)
[2023-11-06 21:23] LABS: Estmated Average Glucose 160; Hemoglobin A1C 7.2 % (4.0-6.0)
[2023-11-06 21:43] LABS: Folate Level 7.4 ng/mL (4.8-37.3)
--- NOTE | 2023-11-06 21:58 | XRR_ITS ---
PROCEDURE INFORMATION: Exam: XR Chest Exam date and time: 11/06/2023 10:24 PM Age: 83 years old Clinical indication: Device placement; Prior surgery; Surgery date: 6+ months; Surgery type: Pacemaker; Patient HX: Left picc confirmation; Additional info: Picc placement verification TECHNIQUE: Imaging protocol: Radiologic exam of the chest. Views: 1 view. COMPARISON: CR (ABDOMEN, ) 11/05/2023 6:04 PM FINDINGS: Tubes, catheters and devices: Left-sided PICC catheter tip reaches the proximal to mid SVC level. Single lead cardiac pacer is again noted in place. Lungs:The lung apices are excluded without visualization of a pneumothorax otherwise. Pleural spaces: No obvious pleural effusion. Heart/Mediastinum: Mild cardiomegaly, stable from the previous day. Moderate pulmonary vascular congestion. Extensive mitral annular calcification. Bones/joints: Unremarkable. XR/XR chest 1V portable [id number] IMPRESSION: PICC catheter tip reaches the proximal to mid SVC level.
[2023-11-06] MEDS: insulin glargine 100 units/1 mL 5 UNIT SUBCUT (21:59)
[2023-11-06 22:17] LABS: Basophils % 0.3 %; Eosinophils # 0.1 10^3/uL (0.0-0.8); Eosinophils % 0.9 %; Hematocrit 38.6 % (36-47); Lymphocytes # 1.1 10^3/uL (0.8-4.8); Lymphocytes % 14.2 %; Mean Corpuscular HGB Conc 29.8 g/dL (30-55); Mean Corpuscular Hemoglobin 30.4 pg (27-33); Mean Corpuscular Volume 102.1 fl (85-98); Mean Platelet Volume 13.6 fL (7.4-10.4); Monocytes # 0.5 10^3/uL (0.2-0.9); Monocytes % 6.2 %; Neutrophils # 6.11 10^3/uL (1.8-7.7); Neutrophils % 77.8 %; Nucleated Red Blood Cells % 0 %; Platelet Count 91 10^3/cmm (157-399); Red Blood Count 3.78 10^6/uL (3.85-5.65); Red Cell Distribution Width 17.3 % (12.1-15.1); White Blood Count 7.86 10^3/uL (3.29-11.43)
--- NOTE | 2023-11-06 22:17 | PC.NURSE ---
Consent obtained by myself and the patient. All risk and benefits discussed. Risk included dvt and infection. LUE scanned with US and basilic vein was the best option. Vein was straight, 4mm, and free of visible clot. Pt prepped and draped in usual sterile fashion. Using real time US, lidocaine injected, vein accessed, and picc floated into position. Chest xray obtained and waitin confirmation. EBL less then 5 m. No bleeding no hematoma.
[2023-11-06 22:33] LABS: Troponin(5th) Baseline 65 ng/L (0-10)
--- NOTE | 2023-11-06 22:40 | PC.NURSE ---
Picc line pulled back 3 cm.
[2023-11-06 22:43] LABS: Partial Thromboplastin Time > 250.0 SECONDS (23.9-36.7)
[2023-11-06 22:46] LABS: Glucose Point of Care 110 mg/dL (70-110)
--- NOTE | 2023-11-06 23:24 | ECG_ITS ---
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 Measurements Intervals [place] Rate: 60 P: 0 HI: 0 QRS: -79 QRSD: 190 T: 101 QT: 504 QTc: 504 Interpretive Statements ELECTRONIC VENTRICULAR PACEMAKER ABNORMAL RHYTHM ECG Compared to ECG 11/06/2023 21:00:26 No significant changes Electronically Signed On 11-07-2023 22:52:19 CDT by Vanessa Gregorio M.D. [email or web address]
[2023-11-06 23:50] LABS: Troponin 5 2HR 70.25 ng/L (0-10); Troponin 5 2HR Delta 5.25 ABS# (0-10)
[2023-11-07] VITALS (10 sets, daily range): BP systolic 119–127; BP diastolic 52–70; PULSE 60–64; RESP 14–20; TEMP 36.2–36.7; O2SAT 90–99; BMI 29.2
[2023-11-07] MEDS: metroNIDAZOLE IV 500 MG/100 ML PREMIX 100 MG IV ×3 (01:07→17:47)
[2023-11-07] MEDS: albumin 12.5 GM/250 ML VIAL IV (01:16)
[2023-11-07 02:25] LABS: Basophils % 0.3 %; Eosinophils # 0.1 10^3/uL (0.0-0.8); Eosinophils % 0.8 %; Hematocrit 36.2 % (36-47); Lymphocytes # 0.8 10^3/uL (0.8-4.8); Lymphocytes % 11.6 %; Mean Corpuscular HGB Conc 29.6 g/dL (30-55); Mean Corpuscular Hemoglobin 30.4 pg (27-33); Mean Corpuscular Volume 102.8 fl (85-98); Mean Platelet Volume 12.6 fL (7.4-10.4); Monocytes # 0.5 10^3/uL (0.2-0.9); Monocytes % 6.3 %; Neutrophils # 5.79 10^3/uL (1.8-7.7); Neutrophils % 80.6 %; Nucleated Red Blood Cells % 0 %; Platelet Count 77 10^3/cmm (157-399); Red Blood Count 3.52 10^6/uL (3.85-5.65); Red Cell Distribution Width 17.3 % (12.1-15.1); White Blood Count 7.18 10^3/uL (3.29-11.43)
[2023-11-07 02:42] LABS: Blood Urea Nitrogen 56 mg/dL (8-23); Calcium 8.3 mg/dL (8.5-10.5); Carbon Dioxide 21 mmol/L (22-29); Chloride 115 mmol/L (98-107); Creatinine Clr Calc Pharmacy 24.8007; Glucose 98 mg/dL (65-115); Osmolality Calculated 311 mOsm/kg (285-295); Sodium 143 mmol/L (136-145)
[2023-11-07 02:43] LABS: Partial Thromboplastin Time 96.6 SECONDS (23.9-36.7)
[2023-11-07 02:44] LABS: Anion Gap 11.5 (5-19); Potassium 4.5 mmol/L (3.5-5.1)
[2023-11-07 02:45] LABS: Troponin 5 6HR 64.37 ng/L (0-10)
[2023-11-07 02:46] LABS: Troponin 5 6HR Delta -0.63 ng/L (0-12)
--- NOTE | 2023-11-07 06:00 | US_ITS ---
WS: [id number] Abdominal ultrasound, limited. History: Evaluate for ascites. Comparison: None. All 4 quadrants are imaged by ultrasound to evaluate for ascites. There is only a small amount of flu id in the LEFT lower quadrant identified. US/US abdomen lmt fluid [id number] IMPRESSION: Very small amount of ascites in the LEFT lower quadrant. No paracentesis will b e performed.
[2023-11-07] MEDS: ondansetron 2 mg/ML SDV 2 mL 4 MG IVP (06:02)
[2023-11-07 07:07] LABS: Glucose Point of Care 95 mg/dL (70-110)
[2023-11-07] MEDS: meropenem 1,000 MG in sodium chloride 0.9% (plus) 50 ML 100 MG IV (09:11)
[2023-11-07] MEDS: pantoprazole 40 mg SDV IVP ×2 (09:11→17:47)
--- NOTE | 2023-11-07 09:22 | PC.NURSE ---
reinforced drsg over picc with abd and bola wrap.
--- NOTE | 2023-11-07 10:22 | P.CONIM_ITS ---
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 Reviewed pt Ca 125 (elevated at 373.1) and her TVUS -with uterine fibroids, and nonvisualized ovaries. CT reviewed. Questioned pt regarding her past DISPATCH ASSOCIATE surgeries, she only recalls her Tubes being bad(stuck) and being removed. She doesn't know if Ovaries were removed. Medications/Allergies Home Medications Medication Instructions Recorded Confirmed Last Taken Type allopurinol 300 mg tablet 300 mg PO BID 07/31/19 11/05/23 10/29/23 History bimatoprost 0.01 % eye drops 1 drp ophthalmic (eye) BEDTIME 07/31/19 11/05/23 10/28/23 History (Mario Alberto) carbidopa 25 mg-levodopa 100 mg 1 tab PO TID 07/31/19 11/05/23 10/29/23 History tablet clonazepam 1 mg tablet 1 mg PO BEDTIME 07/31/19 11/05/23 10/28/23 History cyanocobalamin (vitamin B-12) 1,000 mcg IM Q30D 07/31/19 11/05/23 10/24/23 History 1,000 mcg/mL injection solution oxycodone-acetaminophen 10 mg-325 1 tab PO Q8H PRN Pain, Mild 07/31/19 11/05/23 11/09/22 History mg tablet pramipexole 0.5 mg tablet 1 mg PO BEDTIME 07/31/19 11/05/23 10/28/23 History pravastatin 40 mg tablet 40 mg PO DAILY 07/31/19 11/05/23 10/29/23 History sennosides 8.6 mg-docusate sodium 1 tab-cap PO BID PRN Constipation 07/31/19 11/05/23 08/29/22 History 50 mg tablet nitroglycerin 0.4 mg sublingual 0.4 mg sublingual Q5M PRN chest 12/10/19 11/05/23 07/06/20 20:00 Rx tablet pain 30 days #30 tabs magnesium hydroxide 400 mg/5 mL 30 ml PO DAILY PRN Constipation 12/15/19 11/05/23 07/05/20 09:00 History oral suspension (Milk of Magnesia) omeprazole 40 mg capsule,delayed 40 mg PO BID 12/15/19 11/05/23 10/29/23 History release calcium carbonate 600 mg-vitamin 1 tab PO DAILY 06/22/20 11/05/23 10/29/23 History D3 5 mcg (200 unit) tablet (Calcium 600 + D(3)) potassium chloride 10 mEq 20 meq PO DAILY PRN Edema 07/15/20 11/05/23 09/26/23 History tablet,extended release (Klor-Con) fluticasone propionate 50 2 spray intranasal BEDTIME PRN 10/27/20 11/05/23 09/26/23 History mcg/actuation nasal ALLERGIES spray,suspension (Flonase Allergy Relief) trazodone 50 mg tablet 50 mg PO BEDTIME 07/02/21 11/05/23 10/28/23 History post mastectomy Bras #4 ea 01/14/22 11/05/23 Unknown Rx apixaban 2.5 mg tablet 2.5 mg PO BID #90 tabs 03/16/22 11/05/23 10/29/23 Rx levothyroxine 100 mcg tablet 100 mcg PO DAILY 08/30/22 11/05/23 10/29/23 History albuterol sulfate 90 mcg/actuation 2 puff inhalation Q4H PRN 09/01/22 11/05/23 Unknown History aerosol inhaler Shortness Of Breath naloxone 4 mg/actuation nasal spray 4 mg intranasal Q3M PRN overdose 09/01/22 11/05/23 Unknown History spironolactone 25 mg tablet 25 mg PO DAILY 09/01/22 11/05/23 10/29/23 History insulin glargine 100 unit/mL 10 unit SUBCUT BEDTIME 11/09/22 11/05/23 10/28/23 History subcutaneous solution (Lantus U-100 Insulin) budesonide 160 mcg-glycopyr 9 2 inh inhalation BID #10.7 grams 05/25/23 11/05/23 10/29/23 Rx mcg-formot 4.8 mcg/actuation HFA inhaler (Breztri Aerosphere) isosorbide mononitrate 60 mg 60 mg PO DAILY 09/26/23 11/05/23 10/29/23 History tablet,extended release 24 hr metoprolol tartrate 25 mg tablet 25 mg PO BID 09/26/23 11/05/23 10/29/23 History zinc acetate 25 mg (zinc) capsule 25 mg PO DAILY 09/26/23 11/05/23 10/29/23 History baclofen 5 mg tablet 5 mg PO BID PRN Spasms 10/29/23 11/05/23 10/29/23 History buspirone 5 mg tablet 5 mg PO DAILY 10/29/23 11/05/23 10/29/23 History latanoprost 0.005 % eye drops 1 drp ophthalmic (eye) QAM 10/29/23 11/05/23 Unknown History sertraline 100 mg tablet 100 mg PO DAILY 10/29/23 11/05/23 10/29/23 History furosemide 20 mg tablet 20 mg PO DAILY 11/05/23 11/05/23 Unknown History pantoprazole 40 mg tablet,delayed 40 mg PO DAILY 11/05/23 11/05/23 Unknown History release Allergies Allergy/AdvReac Type Severity Reaction Status Date / Time codeine Allergy patient Verified 11/05/23 21:05 doesn't recall flecainide Allergy severe Verified 11/05/23 21:05 vomiting Iodinated Contrast Media Allergy renal Verified 11/05/23 21:05 disease naproxen Allergy renal Verified 11/05/23 21:05 disease Penicillins Allergy hives Verified 11/05/23 21:05 shellfish derived Allergy unknown Verified 11/05/23 21:05 Sulfa (Sulfonamide Allergy itching Verified 11/05/23 21:05 Antibiotics) tramadol AdvReac makes me Verified 11/05/23 21:05 crazy garlic Allergy unknown Uncoded 11/05/23 21:06 Current Medications Generic Name Dose Route Start Last Admin Trade Name Pedritoq PRN Reason Stop Dose Admin Allopurinol 300 mg 11/06/23 09:00 11/06/23 08:59 Allopurinol 300 Mg Tablet PO 300 mg BID GONZALO Administration Carbidopa/Levodopa 1 each 11/05/23 21:27 11/06/23 08:58 Carbidopa-Levodopa 25-100mg Tablet PO 1 each TID GONZALO Administration Clonazepam 1 mg 11/05/23 21:27 11/05/23 22:11 Clonazepam 1 Mg Tablet PO 1 mg BEDTIME GONZALO Administration Meropenem 1,000 mg/ Sodium 50 mls @ 100 mls/hr 11/06/23 08:15 11/07/23 10:00 Chloride IV Infused Q12H GONZALO Infusion Protocol Metronidazole 500 mg in 100 mls @ 100 mls/hr 11/06/23 09:45 11/07/23 09:55 Flagyl Iv IV 100 mls/hr Q8H GONZALO Administration Protocol Fluconazole 100 mg/ N/A 50 mls @ 50 mls/hr 11/06/23 18:00 11/06/23 23:55 IV Infused Q24H GONZALO Infusion Insulin Glargine 5 unit 11/05/23 21:27 11/06/23 21:59 Insulin Glargine 100 Units/1 Ml SUBCUT 5 unit BEDTIME GONZALO Administration Insulin Human Lispro 0 unit 11/06/23 08:00 11/07/23 07:51 Insulin Lispro 100 Unit/1 Ml SUBCUT Not Given [facility] Protocol Levothyroxine Sodium 100 mcg 11/06/23 07:00 11/06/23 06:19 Levothyroxine 100 Mcg Tablet PO 100 mcg ACBREAKFAST GONZALO Administration Ondansetron HCl 4 mg 11/05/23 21:27 11/07/23 06:02 Ondansetron 2 Mg/Ml Sdv 2 Ml IVP 4 mg Q6H PRN Administration NAUSEA AND VOMITING Pantoprazole Sodium 40 mg 11/06/23 09:00 11/07/23 09:11 Pantoprazole 40 Mg Sdv IVP 40 mg BID GONZALO Administration Pramipexole Dihydrochloride 1 mg 11/05/23 21:34 11/05/23 22:11 Pramipexole 0.25 Mg Tablet PO 1 mg BEDTIME GONZALO Administration PFSH SUPERVISOR RECLAMATION 2 PFSH: Medical History (Updated 11/07/23 @ 10:35 by Paulina Nunez DO) Enterovirus infection, unspecified CHF exacerbation Community acquired pneumonia Fracture of distal end of right fibula Lung nodule, solitary Restrictive lung disease Restrictive lung disease Transaminitis Mild. Most likely due to passive congestion due her CHF. Lumbar stenosis with neurogenic claudication Difficulty in swallowing High anion gap metabolic acidosis Bilateral renal cysts On multiple imaging modalities all appear simple. No further work-up recommended December 2020 Pacemaker Right bundle branch block Supraventricular tachycardia COVID-19 Elevated troponin Chest pain Chronic respiratory failure with hypoxia and hypercapnia GERD (gastroesophageal reflux disease) Atypical chest pain Cardiac [place] [address] [place]. She had no significant coronary artery disease at that time. Chronic kidney disease Diastolic heart failure Osteoarthritis Syncope Chronic kidney disease -baseline Cr appears to be around 2-2.3 - Symptomatic bradycardia UTI (urinary tract infection) - Bradycardia Anemia -on iron supplementation Intermittent atrial fibrillation COPD (chronic obstructive pulmonary disease) Uses 3 L [id number] and BiPAP at night Gout Former smoker Normal coronary angiogram Cardiac angiogram done in September 2015 Chronic back pain History of pulmonary embolism -is on AC with Eliquis Hypothyroidism Type 2 diabetes mellitus Hypertension Diastolic heart failure Chronic anticoagulation Paroxysmal A-fib Surgical History (Updated 11/05/23 @ 21:10 by Marbella Matthew MD) Postoperative state Status post lumbar laminectomy H/O right mastectomy History of tonsillectomy H/O hernia repair H/O colonoscopy 2019 H/O esophagogastroduodenoscopy (~04/2020) 2019 H/O left knee surgery Tubal ligation status History of cholecystectomy Family History Father CAD (coronary artery disease) Family history of premature coronary artery disease Hypertension Mother Cancer Chronic kidney disease (CKD) Hypertension Sister Hyperlipidemia Hypertension Daughter No problems noted. Other Diabetes Social History Smoking and tobacco/nicotine status: former use of tobacco/nicotine Quit status (tobacco/nicotine): has quit using Year quit tobacco: 1971 - 1PPD x 25 Years Alcohol intake: never Substance/Drug Use: never Caregiver/support person: Yes Lives independently: Yes Household members: family Housing: House Marital status: / Current occupational status: retired Do you think of yourself as: Straight/Heterosexual Vitals/I&O/Wt Last Vital Signs Temp 98.0 F 11/07/23 08:42 Pulse 64 11/07/23 08:42 Resp 17 11/07/23 08:42 BP 124/65 11/07/23 08:42 Pulse Ox 98 11/07/23 08:42 O2 Del Method Nasal Cannula 11/07/23 08:42 O2 Flow Rate 3 04/29/24 08:00 11/06/23 11/07/23 11/07/23 22:59 06:59 14:59 Intake Total 154.167 / 1304.167 395.833 / 1700.000 50 / 50 Output Total 350 / 350 200 / 550 Balance -195.833 / 954.167 195.833 / 1150.000 50 / 50 Weight last 48 hrs Weight 77.111 kg Weight 77.383 kg Weight 75.523 kg Weight 61.235 kg Physical Exam 2 Urinary Catheter Management: Ferrari: Cath Placed During This Visit: yes Reason for Continuing Indwelling Catheter: Acute Urinary Retention or Obstruction Urinary Catheter Date of Insertion: 11/06/23 Urinary Catheter Time of Insertion: 00:34 Data 11/07/23 02:18 11/07/23 02:18 Micro: Microbiology 11/05/23 19:09 Urine Culture - Final Urine,Clean Catch 11/05/23 04:15 Blood Culture - Preliminary Blood NEGATIVE TO DATE 11/05/23 20:58 Blood Culture - Preliminary Blood NEGATIVE TO DATE A&P Assessment and plan (1) Vaginal discharge: (2) Ascitic fluid: (3) Abdominal distention: (4) Vaginal itching: (5) Liver cirrhosis: (6) Acute UTI: (7) Elevated CA-125: A. Etiology Unsure if Ovarian Ovaries not visuaized by TVUS Pt is poor Surgical Candidate GC/Chlamydia and Trichomonas lab is Pending P. Recommend [facility] On[facility] Referral if Pt and Family want definite diagnosis and treatment. (8) Anemia: Qualifiers: Anemia type: iron deficiency Iron deficiency anemia type: unspecified iron deficiency Qualified Code(s): D50.9 - Iron deficiency anemia, unspecified (9) Physical deconditioning: Coding Level of Care Code Acute Code for Chg Fwd Diagnoses Vaginal discharge N89.8 Ascitic fluid R18.8 Abdominal distention R14.0 Vaginal itching N89.8 Liver cirrhosis K74.60 Acute UTI N39.0 Elevated CA-125 R97.1 Iron deficiency anemia, unspecified iron deficiency anemia type D50.9 Anemia type: iron deficiency Iron deficiency anemia type: unspecified iron deficiency Physical deconditioning R53.81
[2023-11-07 11:20] LABS: Glucose Point of Care 95 mg/dL (70-110)
--- NOTE | 2023-11-07 13:20 | P.PN_ITS ---
Subjective 2 Subjective: Patient is still experiencing nausea She is not willing to go to [facility] for further intervention, she does not want to go to rehab or penitentiary prefers to go home She does understand that her symptoms probably will not resolve completely She is on 2 to 3 L which she uses at home No significant overnight events Vitals/I&O/Wt Last Vital Signs Temp 97.7 F 11/07/23 13:05 Pulse 60 11/07/23 13:05 Resp 18 11/07/23 13:05 BP 120/65 11/07/23 13:05 Pulse Ox 90 11/07/23 13:05 O2 Del Method Room Air 11/07/23 13:05 O2 Flow Rate 3 11/07/23 08:00 11/06/23 11/07/23 11/07/23 22:59 06:59 14:59 Intake Total 154.167 / 1304.167 395.833 / 1700.000 570 / 570 Output Total 350 / 350 200 / 550 Balance -195.833 / 954.167 195.833 / 1150.000 570 / 570 Weight last 48 hrs Weight 77.111 kg Weight 77.383 kg Weight 75.523 kg Weight 61.235 kg Physical Exam 2 Narrative: Signs of dehydration present but improving Hemodynamic stable currently on 2 L Holding a bucket experiencing nauseous Abdomen distended nontender Lower extremity no significant edema Pleasant cooperative awake and alert nonfocal neuroexam Urinary Catheter Management: Ferrari: Cath Placed During This Visit: yes Reason for Continuing Indwelling Catheter: Acute Urinary Retention or Obstruction Urinary Catheter Date of Insertion: 11/06/23 Urinary Catheter Time of Insertion: 00:34 Data 11/07/23 02:18 11/07/23 02:18 Micro: Microbiology 11/05/23 19:09 Urine Culture - Final Urine,Clean Catch 11/05/23 04:15 Blood Culture - Preliminary Blood NEGATIVE TO DATE 11/05/23 20:58 Blood Culture - Preliminary Blood NEGATIVE TO DATE A&P Assessment and plan (1) DNR (do not resuscitate): (2) Pacemaker: (3) Protein calorie malnutrition: (4) Liver cirrhosis: (5) Abdominal distention: (6) Ascitic fluid: (7) 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: (8) MATILDA (acute kidney injury): (9) Clear vaginal discharge: (10) Vaginal itching: (11) Vaginal discharge: (12) Anemia: Qualifiers: Anemia type: iron deficiency Iron deficiency anemia type: unspecified iron deficiency Qualified Code(s): D50.9 - Iron deficiency anemia, unspecified (13) Elevated CA-125: (14) Sarcopenia: (15) Physical deconditioning: Plan Mesenteric angina/ischemia: Chronic symptoms no acute sign obstruction Discontinue heparin drip Abnormal tumor markers Ovaries not visualized She does not want to pursue intervention at [facility] as of now Disposition: Home once she is able to tolerate diet Small meals, I will use bland/brat diet DNR/DNI She has been treated for possible STDs Chlamydia gonorrhea panel is pending I have asked patient privately in absence of family member if she feels safe at home, she is complacent and content with the care she is getting from her daughter and 2 sons She has not raised any concerns at this point Attestations 2 Medical Necessity Statement*: Plan to discharge home by tomorrow Diagnoses DNR (do not resuscitate) Z66 Pacemaker Z95.0 Protein calorie malnutrition E46 Liver cirrhosis K74.60 Abdominal distention R14.0 Ascitic fluid R18.8 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
[2023-11-07 16:44] LABS: Glucose Point of Care 117 mg/dL (70-110)
[2023-11-07] MEDS: meropenem 1,000 MG in sodium chloride 0.9% (plus) 50 ML 1 MG IV (19:53)
[2023-11-07] MEDS: fluconazole premix 100 MG in empty flexible container 1 EACH 50 MG IV (19:53)
[2023-11-07] MEDS: insulin glargine 100 units/1 mL 5 UNIT SUBCUT (20:43)
[2023-11-07 20:45] LABS: Glucose Point of Care 181 mg/dL (70-110)
[2023-11-08 00:39] LABS: Chlamydia Trachomatis RNA TMA NOT DETECTED (NOT DETECTED); Neisseria Gonorrhoeae RNA, TMA NOT DETECTED (NOT DETECTED)
[2023-11-08 00:53] VITALS: BP 130/62; PULSE 62; RESP 18; TEMP 36.5; O2SAT 98
[2023-11-08] MEDS: metroNIDAZOLE IV 500 MG/100 ML PREMIX 100 MG IV ×2 (01:08→11:46)
[2023-11-08 04:00] VITALS: BP 143/72; PULSE 66; RESP 18; TEMP 36.6; O2SAT 97
[2023-11-08] MEDS: acetaminophen 500 mg Tablet PO ×2 (04:34→08:30)
[2023-11-08 05:23] LABS: Platelet Count 90 10^3/cmm (157-399)
[2023-11-08 06:35] LABS: Glucose Point of Care 84 mg/dL (70-110)
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
[2023-11-08] MEDS: meropenem 1,000 MG in sodium chloride 0.9% (plus) 50 ML 100 MG IV (08:19)
--- NOTE | 2023-11-08 08:27 | USCV_ITS ---
Vaibhav Ramsey Age: 83 Gender: F : 1940 Exam Date: 11/08/2023 09:05 Ordering Phys: Marbella Matthew MD Technologist: FREDI Exam Location: [facility] [place] Indication: lt arm swelling pic line in place PROCEDURES: Venous duplex imaging was performed in only the left upper extremity. The following venous structures were evaluated: internal jugular vein, subclavian vein, axillary vein, and brachial veins. In addition, the basilic vein, cephalic vein, radial vein, and ulnar vein. FINDINGS: The veins of the left upper extremity are readily compressible with normal venous flow dynamics including spontaneous flow, respiratory phasic variation and augmentation. There is no clot around the picc line CONCLUSIONS No left upper extremity DVT. Dr. Macey Benitez DO (Electronically Signed) Final Date: 08 November 2023 15:33 S
[2023-11-08] MEDS: pantoprazole 40 mg SDV IVP (08:30)
[2023-11-08 09:29] VITALS: PULSE 70; RESP 16; O2SAT 94
[2023-11-08 11:01] VITALS: BP 116/51; PULSE 66; RESP 16; TEMP 36.7; O2SAT 99
[2023-11-08 11:46] LABS: Glucose Point of Care 112 mg/dL (70-110)
[2023-11-08 14:00] VITALS: BP 116/51; PULSE 66; RESP 16; TEMP 36.7; O2SAT 99
== END 2023-11-08 14:02 | disposition home or self-care (01) | DRG 393 ==
LOC: ER 20:34 → MEDSURG 21:25
PROVIDERS: Emergency Medicine; Family Medicine; Obstetrics & Gynecology; Admitting Provider Internal Medicine; Emergency Provider Emergency Medicine; PCP Family Medicine; Visit Provider Internal Medicine
DX: K55.1 Chronic vascular disorders of intestine (principal); G93.41 Metabolic encephalopathy; E46 Unspecified protein-calorie malnutrition; R18.8 Other ascites; N17.9 Acute kidney failure, unspecified; K76.6 Portal hypertension; I50.32 Chronic diastolic (congestive) heart failure; I48.20 Chronic atrial fibrillation, unspecified; I13.0 Hypertensive heart and chronic kidney disease with heart failure and stage 1 through stage 4 chronic kidney disease, or unspecified chronic kidney disease; N39.0 Urinary tract infection, site not specified; Z66 Do not resuscitate; Z95.0 Presence of cardiac pacemaker; K74.60 Unspecified cirrhosis of liver; R14.0 Abdominal distension (gaseous); N89.8 Other specified noninflammatory disorders of vagina; D64.9 Anemia, unspecified; M62.84 Sarcopenia; R53.81 Other malaise; N18.9 Chronic kidney disease, unspecified; D69.6 Thrombocytopenia, unspecified; Z79.01 Long term (current) use of anticoagulants; E11.22 Type 2 diabetes mellitus with diabetic chronic kidney disease; E03.9 Hypothyroidism, unspecified; Z79.4 Long term (current) use of insulin; Z99.81 Dependence on supplemental oxygen; Z87.891 Personal history of nicotine dependence; J44.9 Chronic obstructive pulmonary disease, unspecified; R97.1 Elevated cancer antigen 125 [CA 125]; M79.89 Other specified soft tissue disorders
CPT/HCPCS: 36415; 36416; 36573; 36592; 49083; 51702; 71045; 74022; 74174; 76705; 76830; 80048; 80053; 80074; 81001; 82607; 82728; 82746; 82962; 83036; 83605; 83735; 83880; 84443; 84484; 85025; 85049; 85730; 86140; 86304; 87040; 87086; 87491; 87591; 87806; 92610; 93005; 93306; 93971; 96365; 96372; 97110; 97116; 97163; 97530; 99285; C9113; E0352; J0696; J1170; J1450; J1644; J1815; J2185; J2405; J3490; J7030; P9045; Q9967

== ENCOUNTER → 2024-01-26 13:42 | Outpatient (BNVA) | payer MEDICARE, MEDICAID, SELFPAY | PROVIDERS: PCP Family Medicine; Visit Provider Internal Medicine Cardiovascular Disease | DX: I48.0 Paroxysmal atrial fibrillation (principal); I08.1 Rheumatic disorders of both mitral and tricuspid valves; Z86.711 Personal history of pulmonary embolism; I13.0 Hypertensive heart and chronic kidney disease with heart failure and stage 1 through stage 4 chronic kidney disease, or unspecified chronic kidney disease; N18.9 Chronic kidney disease, unspecified; I50.30 Unspecified diastolic (congestive) heart failure; Z95.0 Presence of cardiac pacemaker; E11.22 Type 2 diabetes mellitus with diabetic chronic kidney disease; Z79.4 Long term (current) use of insulin; Z87.891 Personal history of nicotine dependence | CPT/HCPCS: 36415; 80048; 83880; 99214 ==

== ENCOUNTER → 2024-02-22 11:26 | Outpatient (BNVA) | payer MEDICARE, MEDICAID, SELFPAY | PROVIDERS: PCP Family Medicine; Visit Provider Internal Medicine | DX: Z45.010 Encounter for checking and testing of cardiac pacemaker pulse generator [battery] (principal) | CPT/HCPCS: 93296 ==

== ENCOUNTER → 2024-06-06 11:04 | Outpatient (BNVA) | payer MEDICARE, MEDICAID, SELFPAY | PROVIDERS: PCP Family Medicine; Visit Provider Internal Medicine Cardiovascular Disease | DX: Z45.010 Encounter for checking and testing of cardiac pacemaker pulse generator [battery] (principal) | CPT/HCPCS: 93296 ==

== ENCOUNTER → 2024-07-30 09:01 | Outpatient (BNVA) | payer MEDICAID, SELFPAY | PROVIDERS: PCP Family Medicine; Visit Provider Nurse Practitioner Family | DX: I13.0 Hypertensive heart and chronic kidney disease with heart failure and stage 1 through stage 4 chronic kidney disease, or unspecified chronic kidney disease (principal); I50.33 Acute on chronic diastolic (congestive) heart failure; N18.9 Chronic kidney disease, unspecified; R07.9 Chest pain, unspecified; I48.0 Paroxysmal atrial fibrillation; I08.1 Rheumatic disorders of both mitral and tricuspid valves; Z86.711 Personal history of pulmonary embolism; Z95.0 Presence of cardiac pacemaker; Z79.01 Long term (current) use of anticoagulants; E11.22 Type 2 diabetes mellitus with diabetic chronic kidney disease; Z79.4 Long term (current) use of insulin; Z87.891 Personal history of nicotine dependence | CPT/HCPCS: 99214 ==

== ENCOUNTER 2024-08-27 09:36 | Outpatient (CLI) | payer OTHER, MEDICAID, SELFPAY ==
[2024-08-27 09:56] VITALS: BMI 24.5
--- NOTE | 2024-08-27 09:58 | ECG_ITS ---
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 The perfusion scan will be documented separately. DATA: Baseline heart rate was 78 beats per minute. Baseline blood pressure was 139/64 millimeters of mercury. Target heart rate was 135. Maximum heart rate achieved was 85. which was 62% of the predicted target heart rate. Maximum blood pressure was 142/64 millimeters of mercury. The reason for ending the test was completion of the protocol. The patient did not experience any symptoms. ELECTROCARDIOGRAM: BASELINE: Sinus rhythm. Right axis. Right bundle branch block, otherwise, no ST-T changes suggestive of ischemia noted. No arrhythmia noted. EXERCISE: After Lexiscan injection, no ST-T changes suggestive of ischemic noted. No arrhythmia noted. CONCLUSION: Please note due to baseline abnormality of the EKG specificity and sensitivity of the EKG portion of LexiScan MIBI stress test will be low 1. EKG not suggestive of ischemia 2. Lexiscan injection unremarkable. 3. Perfusion scan will be documented separately. Electronically Signed On 09-20-2024 18:14:39 CDT by LACY LENZ [email or web address]
--- NOTE | 2024-08-27 09:58 | NMCV_ITS ---
NM roxi perf SPECT r/s* [id number] Vaibhav Ramsey Age: 84 Gender: F : 1940 Exam Date: 08/27/2024 09:58 Ordering Phys: Moon Antoine NP Technologist: LEN Zamorano Exam Location: [facility] Indications: cp STRESS TEST Please see separate stress test report in [facility] for full findings IMAGE PROTOCOL Rest/Stress 1 Day Radiopharmaceutical Dose (mCi) Administration Site Administered by Rest: Tc-99m 10.7 IV Ruthie Oquendo, [employer] SUPERVISOR Sestamibi Stress:Tc-99m 32.6 IV Ruthie Espinozagle, [employer] SUPERVISOR Sestamibi Rest: 27-Aug-2024 60 Discovery 630 Stress: 27-Aug-2024 30 Discovery 630 0.4mg Lexiscan. Supine position only as patient was unable to lay prone. SPECT RESULTS Technical Quality: Good Raw Data Analysis: Normal Image Corrections: No attenuation or motion correction applied Summed Stress Score: 0 Summed Rest Score: 0 Summed Difference Score: 0 PERFUSION FINDINGS SPECT images demonstrate homogeneous tracer distribution throughout the myocardium. FUNCTIONAL RESULTS (calculated via Gated SPECT) Stress Image LV EF (%): 67 Stress EDV (mL):95 TID: 1.35 Stress ESV (mL):31 FUNCTIONAL FINDINGS: There is normal left ventricular systolic function. IMPRESSIONS Myocardial perfusion imaging is normal. Marbella Ardon MD (Electronically Signed) Final Date: 29 August 2024 16:44 S
[2024-08-27] MEDS: regadenoson 0.4 Mg/5 ml Syringe IVP (11:15)
[2024-08-27 12:01] VITALS: BP 141/63; PULSE 81
== END 2024-08-27 09:37 | disposition home or self-care (01) ==
PROVIDERS: PCP Family Medicine; Visit Provider Nurse Practitioner Family
DX: R07.9 Chest pain, unspecified (principal); I45.10 Unspecified right bundle-branch block
CPT/HCPCS: 36415; 78452; 93017; 96374; A9500; J2785

== ENCOUNTER 2024-08-27 13:01 | Outpatient (CLI) | payer OTHER, MEDICAID, SELFPAY ==
--- NOTE | 2024-08-27 14:45 | USCV_ITS ---
Vaibhav Ramsey Age: 84 Gender: F : 1940 Exam Date: 08/27/2024 14:42 Ordering Phys: Moon Antoine NP Technologist: [place] [facility] [place]: mr,ms BP: / HR: Rhythm: Sinus Technical Quality: Adequate MEASUREMENTS (Male / Female) Normal Values FINDINGS Left Ventricle Normal left ventricular size, systolic function and wall thickness, with no regional wall motion abnormalities. Left ventricular ejection fraction is estimated at 60%. Grade II/IV diastolic dysfunction, moderately elevated filling pressures. Right Ventricle The right ventricle is normal in size and function. Right Atrium The right atrium is normal in size. Left Atrium Moderately increased left atrial size. Mitral Valve Severely thickened mitral valve. Severe mitral annular calcification. Mild mitral valve stenosis. Moderate mitral valve regurgitation. Aortic Valve Moderate aortic valve calcification. No aortic valve stenosis. Trace aortic valve regurgitation. Tricuspid Valve Ppjihudg-aw-ltmevb tricuspid valve regurgitation. Pulmonic Valve Structurally normal pulmonic valve without significant stenosis. There is no pulmonic regurgitation. Pericardium Normal pericardium without effusion. Aorta Normal ascending aorta dimension. IVC The inferior vena cava appears normal. CONCLUSIONS Normal left ventricular size, systolic function and wall thickness, with no regional wall motion abnormalities. Left ventricular ejection fraction is estimated at 60%. Grade II/IV diastolic dysfunction, moderately elevated filling pressures. Moderately increased left atrial size. Severely thickened mitral valve. Severe mitral annular calcification. Mild mitral valve stenosis. Moderate mitral valve regurgitation. Moderate aortic valve calcification. No aortic valve stenosis. Trace aortic valve regurgitation. Buvvcmao-bw-vuceyv tricuspid valve regurgitation. There is no pericardial effusion. Right atrial pressure is around 10 mm of mercury. Marbella Ardon MD (Electronically Signed) Final Date: 29 August 2024 16:17 S
== END 2024-08-27 13:02 | disposition home or self-care (01) ==
PROVIDERS: PCP Family Medicine; Visit Provider Nurse Practitioner Family
DX: I34.2 Nonrheumatic mitral (valve) stenosis (principal); R93.1 Abnormal findings on diagnostic imaging of heart and coronary circulation; I34.81 Nonrheumatic mitral (valve) annulus calcification; I34.0 Nonrheumatic mitral (valve) insufficiency; I35.8 Other nonrheumatic aortic valve disorders; I07.1 Rheumatic tricuspid insufficiency
CPT/HCPCS: 93306

== ENCOUNTER → 2024-11-14 11:15 | Outpatient (BNVA) | payer OTHER, MEDICAID, SELFPAY | PROVIDERS: PCP Family Medicine; Visit Provider Internal Medicine Cardiovascular Disease | DX: Z45.018 Encounter for adjustment and management of other part of cardiac pacemaker (principal) | CPT/HCPCS: 93296 ==

== ENCOUNTER → 2025-04-09 09:45 | Outpatient (BNVA) | payer OTHER, MEDICAID, SELFPAY | PROVIDERS: PCP Family Medicine; Visit Provider Internal Medicine Cardiovascular Disease | DX: Z45.018 Encounter for adjustment and management of other part of cardiac pacemaker (principal) | CPT/HCPCS: 93296 ==

== ENCOUNTER 2025-06-16 16:29 | Inpatient (IN) | payer MEDICARE, MEDICAID, SELFPAY ==
[2025-06-16] VITALS (7 sets, daily range): BP systolic 160–165; BP diastolic 80–88; PULSE 81–110; RESP 16–24; TEMP 36.6–37.2; O2SAT 92–98; BMI 37.8; BMI 30.2
--- NOTE | 2025-06-16 16:38 | XRR_ITS ---
PROCEDURE INFORMATION: Exam: XR Chest Exam date and time: 06/16/2025 4:44 PM Age: 84 years old Clinical indication: Shortness of breath; Prior surgery; Surgery date: 6+ months; Surgery type: Pacer; Additional info: SOA TECHNIQUE: Imaging protocol: Radiologic exam of the chest. Views: 1 view. Total images: 246 COMPARISON: 1. CR XR chest 1V portable [id number] 11/06/2023 10:24 PM 2. CR XR chest 1V [id number] 09/26/2023 1:47 PM 3. CR XR chest 1V portable [id number] 08/19/2023 9:[address] chest wo con [id number] 05/29/2023 9:27 PM FINDINGS: Tubes, catheters and devices: Interval removal of the left arm PICC line compared with 11/06/2023. Single chamber cardiac pacemaker lead projecting satisfactory. Lungs: Reticular interstitial thickening, likely chronic, without focal alveolar consolidation. No lung consolidation, mass, or acute pulmonary abnormality identified. Pleural spaces: No pathologic pleural thickening, significant pleural effusion or pneumothorax. Heart/Mediastinum: Moderate cardiomegaly. Mitral valve annulus calcification. Vasculature: Aorta moderate atherosclerotic calcification. Bones/joints: Acromioclavicular joint mild chronic degenerative arthrosis. Shoulder glenohumeral mild osteoarthritis. Moderate generalized degenerative changes of the vertebral column, including multilevel osteophytes, degenerative disc height loss, and facet arthrosis, consistent with patient age. No intrinsic osseous abnormality identified. Qualitative demineralization of bones (osteopenia) limiting evaluation for nondisplaced fractures. XR/XR chest 1V [id number] IMPRESSION: 1. No new or worsening findings; chronic findings stable. 2. Reticular interstitial thickening, likely chronic, without focal alveolar consolidation. Nonspecific; most consistent with chronic fibrotic interstitial change, age-related/nonspecific. Recommend correlation with clinical history; pulmonary function tests if clinically indicated. 3. Moderate age-appropriate degenerative spinal changes. Other chronic/non-acute findings as described above. COMMENTS: Qualitative demineralization of bones (osteopenia) limiting evaluation for nondisplaced fractures.
--- OUTSIDE RECORDS SUMMARY | 2025-06-16 16:39 | XMS_ITS | Encounter Summary ---
Author Organization [facility] Address [address] [place] [address] Care Team Providers Care Candle Molder Machine Name Role Phone Terence Rogers MD Primary Care Provider [phone] [phone] Encounter Details Date Type Department Care Team (Late st Contact Info) Description 01/08/1999 Outpatient Historical [facility] Social History Tobacco Use Types Packs/Day Years Used Date Smoking Tobacco: Never Assessed Comments Unknown Sex and Gender Information Value Date Recorded Sex Assigned at Not on file Legal Sex Female 6:46 AM SYSTEMS MANAGER Gender Identity Not on file Sexual Orientation Not on file documented as of this encounter Plan of Treatment Not on file documented as of this encounter Visit Diagnoses Not on filedocumented in this encounter Additional Health Concerns Infection Onset Date Last Indicated Resolved Time COVID-19 06/25/2020 06/25/2020 07/25/2020 8:08 PM SYSTEMS MANAGER documented as of this encounter Care Teams Candle Molder Machine Relationship Specialty Start Date End Date Terence Rogers MD [address] [place] [address] PCP - General Family Practice 12/20/16 documented as of this encounter
--- OUTSIDE RECORDS SUMMARY | 2025-06-16 16:39 | XMS_ITS | Encounter Summary ---
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) Social History Tobacco Use Types Packs/Day Years Used Date Smoking Tobacco: Never Assessed Comments Unknown Sex and Gender Information Value Date Recorded Sex Assigned at Not on file Legal Sex Female 6:46 AM SOLE DYER Gender Identity Not on file Sexual Orientation Not on file documented as of this encounter Plan of Treatment Not on file documented as of this encounter Visit Diagnoses Diagnosis Type I (juvenile type) diabetes mellitus with neurological manifestations, 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
--- OUTSIDE RECORDS SUMMARY | 2025-06-16 16:39 | XMS_ITS | Encounter Summary ---
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) Social History Tobacco Use Types Packs/Day Years Used Date Smoking Tobacco: Never Assessed Comments Unknown Sex and Gender Information Value Date Recorded Sex Assigned at Not on file Legal Sex Female 6:46 AM SERVICE CENTER SUPERVISOR Gender Identity Not on file Sexual Orientation [...] Time COVID-19 06/25/2020 06/25/2020 07/25/2020 8:08 PM SERVICE CENTER SUPERVISOR documented as of this encounter Care Teams Care Professionals Relationship Specialty Start Date End Date Terence Rogers MD [address] [id number] PCP - General Family Practice 12/20/16 documented as of this encounter
--- OUTSIDE RECORDS SUMMARY | 2025-06-16 16:39 | XMS_ITS | Encounter Summary ---
Author Organization [facility] Address [address] [place] [address] Care Team Providers Care Risk And Compliance Analytics Director Name Role Phone Terence Rogers MD Primary Care Provider [phone] [phone] Encounter Details Date Type Department Care Team (Late st Contact Info) Description 01/08/1999 Outpatient Historical [facility] Social History Tobacco Use Types Packs/Day Years Used Date Smoking Tobacco: Never Assessed Comments Unknown Sex and Gender Information Value Date Recorded Sex Assigned at Not on file Legal Sex Female 6:46 AM SUPERVISOR BOILERMAKING SHOP Gender Identity Not on file Sexual Orientation Not on file documented as of this encounter Plan of Treatment Not on file documented as of this encounter Visit Diagnoses Not on filedocumented in this encounter Additional Health Concerns Infection Onset Date Last Indicated Resolved Time COVID-19 06/25/2020 06/25/2020 07/25/2020 8:08 PM SUPERVISOR BOILERMAKING SHOP documented as of this encounter Care Teams Risk And Compliance Analytics Director Relationship Specialty Start Date End Date Terence Rogers MD [address] [place] [address] PCP - General Family Practice 12/20/16 documented as of this encounter
--- OUTSIDE RECORDS SUMMARY | 2025-06-16 16:39 | XMS_ITS | Encounter Summary ---
Author Organization [facility] Address [address] [place] [address] Care Team Providers Care Supervisor Coil Winding Name Role Phone Terence Rogers MD Primary Care Provider [phone] [phone] Reason for Referral * Outpatient Services (Routine) - Closed Specialty Diagnoses / Procedures Referred By Ikerac hermelinda Referred To Contact Radiology Diagnoses Carotid stenosis Neck pain Procedures US CAROTID DOPPLER Sabi Dick MD [address] [place] [address] Phone: tel: fax: [facility] [address] [facility] [address] [place] [address] Phone: tel: fax: Referral ID Status Reason Start Date Expiration Date V isits Requested Visits Authorized [id number] Closed [facility] CTS to Schedule (SGF) 11/22/2014 12/23/2015 1 1 Encounter Details Date Type Department Care Team (Latest Contact Info) Description 11/22/2014 Ancillary Orders [facility] Scheduling [address] [facility] [address] [place] [address] Sabi Dick MD [address] [place] [address] Carotid stenosis (Primary Dx); Neck pain Social History Tobacco Use Types Packs/Day Years Used Date Smoking Tobacco: Former Cigarettes 0.5 20 0 08/14/1951 - 08/14/1971 Smokeless Tobacco: Never Alcohol Use Standard Drinks/Week Comments No 0 (1 standard drink = 0.6 oz pur e alcohol) Comments No Sex and Gender Information Value Date Recorded Sex Assigned at Not on file Legal Sex Female 6:46 AM ROTARY DRILLER PROSPECTING Gender Identity Not on file Sexual Orientation Not on file Occupation Industry Job Start Date Job End Date Not on file Not on file Not on file Not on file documented as of this encounter Plan of Treatment Not on file documented as of this encounter Results * US CAROTID DOPPLER (11/26/2014 10:01 AM CDT) Anatomical Region Laterality Modality Neck Ultrasound 11/26/2014 9:47 AM CDT Narrative 11/26/2014 10:13 AM CDT PROCEDURE CAROTID DUPLEX ULTRASOUND, 26 Nov 2014 DESCRIPTION Carotid duplex sonography showed mid common carotid velocities of 0.493 m/sec on the right and 0.655 m/sec on the left. Peak systolic internal carotid velocities are 0.701 m/sec on the right and 0.720 m/sec on the left for IC/CC ratios of 1.4 on the right and 1.1 on the left. There is minimal plaque of the internal carotid artery bilaterally. No ulcerated plaque is seen. Antegrade vertebral artery flow is noted bilaterally. IMPRESSION negative for hemodynamically significant stenosis Procedure Note Jose Kearns MD - 11/26/2014 PROCEDURE CAROTID DUPLEX ULTRASOUND, 26 Nov 2014 DESCRIPTION Carotid duplex sonography showed mid common carotid velocities of 0.493 m/sec on the right and 0.655 m/sec on the left. Peak systolic internal carotid velocities are 0.701 m/sec on the right and 0.720 m/sec on the left for IC/CC ratios of 1.4 on the right and 1.1 on the left. There is minimal plaque of the internal carotid artery bilaterally. No ulcerated plaque is seen. Antegrade vertebral artery flow is noted bilaterally. IMPRESSION negative for hemodynamically significant stenosis us Sabi Dick MD US ORDERABLES Final Resu lt documented in this encounter Visit Diagnoses Diagnosis Carotid stenosis- Primary Occlusion and stenosis of carotid artery without mention of cerebral infarction Neck pain Cervicalgia Carotid stenosis Occlusion and stenosis of carotid artery without mention of cerebral infarction Neck pain Cervicalgia documented in this encounter Additional Health Concerns Infection Onset Date Last Indicated Resolved Time COVID-19 06/25/2020 06/25/2020 07/25/2020 8:08 PM ROTARY DRILLER PROSPECTING documented as of this encounter Care Teams Supervisor Coil Winding Relationship Specialty Start Date End Date Terence Rogers MD [address] [address] PCP - General Family Practice 12/20/16 documented as of this encounter
--- OUTSIDE RECORDS SUMMARY | 2025-06-16 16:39 | XMS_ITS | Encounter Summary ---
Author Organization [employer] Address [address] [place] [address] Care Team Providers Care Dairy Consultant Name Role Phone Terence Rogers MD Primary Care Provider [phone] [phone] Encounter Details Date Type Department Care Team (Late st Contact Info) Description 11/29/2016 Ancillary Orders [facility] [address] [place] [address] Cathleen Babb, PST MANAGER [address] [place] [address] Lumbar spine pain; Hip pain, acute, left Social History Tobacco Use Types Packs/Day Years Used Date Smoking Tobacco: Former Cigarettes 0.5 20 0 08/14/1951 - 08/14/1971 Smokeless Tobacco: Never Alcohol Use Standard Drinks/Week Comments No 0 (1 standard drink = 0.6 oz pur e alcohol) Comments No Sex and Gender Information Value Date Recorded Sex Assigned at Not on file Legal Sex Female 6:46 AM HELP DESK REPRESENTATIVE Gender Identity Not on file Sexual Orientation Not on file Occupation Industry Job Start Date Job End Date Not on file Not on file Not on file Not on file documented as of this encounter Plan of Treatment Not on file documented as of this encounter Results * XR LUMBAR SPINE 2 OR 3 VW (11/29/2016 2:12 PM CDT) Anatomical Region Laterality Modality Spine Computed Radiogr aphy 11/29/2016 2:12 PM CDT Impressions 12/03/2016 4:08 PM CDT IMPRESSION: Please see below. Exam: XR LUMBAR SPINE 2 OR 3 VW Date/Time of Exam: 11/29/2016 2:12 PM Reason For Exam: Lumbar spine pain. Comparison: 10/14/2015. Findings: No vertebral body height loss. Mild disc and endplate degenerative changes in the lower thoracic spine. L2-3: Mild disc space height loss and moderate endplate sclerotic degenerative changes. L3-4: Mild endplate degenerative changes. L4-5: Very mild endplate degenerative changes. L5-S1: Significant disc space height loss and moderate endplate sclerosis. Bilateral facet arthrosis. Cholecystectomy clips. IMPRESSION: 1. Degenerative changes. [id number] Narrative Procedure Note Gianluca Edouard MD - 12/03/2016 IMPRESSION IMPRESSION: Please see below. Exam: XR LUMBAR SPINE 2 OR 3 VW Date/Time of Exam: 11/29/2016 2:12 PM Reason For Exam: Lumbar spine pain. Comparison: 10/14/2015. Findings: No vertebral body height loss. Mild disc and endplate degenerative changes in the lower thoracic spine. L2-3: Mild disc space height loss and moderate endplate sclerotic degenerative changes. L3-4: Mild endplate degenerative changes. L4-5: Very mild endplate degenerative changes. L5-S1: Significant disc space height loss and moderate endplate sclerosis. Bilateral facet arthrosis. Cholecystectomy clips. IMPRESSION: 1. Degenerative changes. [id number] Cathleen Babb PST MANAGER DIAGNOSTIC IMAGING ORDERABL ES Final Result * XR SACROILIAC JOINTS 3+ VW (11/29/2016 2:11 PM CDT) Anatomical Region Laterality Modality Pelvis Computed Radiogr aphy 11/29/2016 2:12 PM CDT Impressions 12/03/2016 4:08 PM CDT IMPRESSION: Please see below. Exam: XR SACROILIAC JOINTS 3+ VW Date/Time of Exam: 11/29/2016 2:11 PM Reason For Exam: Hip pain, acute, left. Comparison: None Findings: Mild bilateral sacroiliac degenerative changes. A clip overlies the left lower pelvis. Probable residual contrast within a few diverticula versus amorphous calcification within one or more fibroids. Advanced degenerative change at the pubic symphysis. Lower lumbar degenerative changes. IMPRESSION: 1. Mild bilateral sacroiliac degenerative changes. [id number] Narrative Procedure Note Gianluca Edouard MD - 12/03/2016 IMPRESSION IMPRESSION: Please see below. Exam: XR SACROILIAC JOINTS 3+ VW Date/Time of Exam: 11/29/2016 2:11 PM Reason For Exam: Hip pain, acute, left. Comparison: None Findings: Mild bilateral sacroiliac degenerative changes. A clip overlies the left lower pelvis. Probable residual contrast within a few diverticula versus amorphous calcification within one or more fibroids. Advanced degenerative change at the pubic symphysis. Lower lumbar degenerative changes. IMPRESSION: 1. Mild bilateral sacroiliac degenerative changes. [id number] Cathleen Babb PST MANAGER DIAGNOSTIC IMAGING ORDERABL ES Final Result documented in this encounter Visit Diagnoses Diagnosis Lumbar spine pain Lumbago Hip pain, acute, left Hip pain, acute, left Lumbar spine pain Lumbago documented in this encounter Additional Health Concerns Infection Onset Date Last Indicated Resolved Time COVID-19 06/25/2020 06/25/2020 07/25/2020 8:08 PM HELP DESK REPRESENTATIVE documented as of this encounter Care Teams Dairy Consultant Relationship Specialty Start Date End Date Terence Rogers MD [address] [address] PCP - General Family Practice 12/20/16 documented as of this encounter
--- OUTSIDE RECORDS SUMMARY | 2025-06-16 16:39 | XMS_ITS | Encounter Summary ---
Author Organization [facility] Address [address] [place] [address] Care Team Providers Care Fitter Armament Name Role Phone Terence Rogers MD Primary Care Provider +1 [phone] Reason for Referral * Outpatient Services (Routine) - Closed Specialty Diagnoses / Procedures Referred By Chio shen Referred To Contact Radiology Diagnoses RUQ pain Procedures CT ABDOMEN PELVIS WO CONTRAST Tarah De La Torre APRN NO ADDRESS ON FILE [facility] CT Scan [place] [address] [facility] [address] [place] [address] Phone: tel: fax: Referral ID Status Reason Start Date Expiration Date V isits Requested Visits Authorized [id number] Closed [facility] CTS to Schedule (SGF) 04/25/2013 05/26/2014 1 1 Encounter Details Date Type Department Care Team (Late st Contact Info) Description 04/25/2013 Ancillary Orders [facility] Family Medicine [place] [address] [facility] [address] [place] [address] Tarah De La Torre APRN NO ADDRESS ON FILE RUQ pain (Primary Dx) Social History Tobacco Use Types Packs/Day Years Used Date Smoking Tobacco: Former Cigarettes 0.5 20 0 08/14/1951 - 08/14/1971 Smokeless Tobacco: Never Alcohol Use Standard Drinks/Week Comments No 0 (1 standard drink = 0.6 oz pur e alcohol) Comments No Sex and Gender Information Value Date Recorded Sex Assigned at Not on file Legal Sex Female 6:46 AM RISK DEVELOPER Gender Identity Not on file Sexual Orientation Not on file Occupation Industry Job Start Date Job End Date Not on file Not on file Not on file Not on file documented as of this encounter Plan of Treatment Not on file documented as of this encounter Results * CT ABDOMEN PELVIS WO CONTRAST (04/25/2013 12:18 PM CDT) Anatomical Region Laterality Modality Abdomen Computed Tomogra phy 04/25/2013 11:5 0 AM CDT Narrative 04/25/2013 1:[address] ABDOMEN and PELVIS, non-contrast 25 April 2013 TECHNIQUE With the patient supine in the scanning gantry, after oral contrast is administered, helical axial imaging was obtained from above the diaphragm through the pelvis at 5 mm increments for 89 axial images. Sagittal and coronal reconstructions are also obtained. The study of 27 March 2012 is compared. DESCRIPTION There again appears to be mild cardiomegaly and lung bases remain clear. No hepatic focal defect is seen on noncontrast study. Since the previous study there is slight lateral prolapse of the peritoneum around the anterior rib cage in the right upper quadrant with hepatic flexure extending into the prolapsed fat. No rib lesion is identified. There is mild hepatosplenomegaly, as on the previous study. There status post cholecystectomy again noted. Pancreas and adrenal glands appear unremarkable. The exophytic lucency of the upper pole of the left kidney compatible with cyst is again noted. Kidneys show no hydronephrosis or nephrolithiasis. The small bowel appears unremarkable. The cecal region appears unremarkable although appendix is not identified. There is moderate gas and fecal artifact throughout the colon without obstructive distention. There is some sigmoid diverticulosis without pericolic inflammatory change. Uterus and adnexa appear unremarkable except for calcified uterine fibroids. No free fluid or free air are seen in the abdomen. IMPRESSION 1. no acute abdominal findings appreciated 2. right upper quadrant interval changes as described 3. diverticulosis with no pericolic inflammatory changes seen COMMENT Discussed with Tarah De La Torre at the clinic at approximately 1240 hours. Procedure Note Jose Kearns MD - 04/25/[address] ABDOMEN and PELVIS, non-contrast 25 April 2013 TECHNIQUE With the patient supine in the scanning gantry, after oral contrast is administered, helical axial imaging was obtained from above the diaphragm through the pelvis at 5 mm increments for 89 axial images. Sagittal and coronal reconstructions are also obtained. The study of 27 March 2012 is compared. DESCRIPTION There again appears to be mild cardiomegaly and lung bases remain clear. No hepatic focal defect is seen on noncontrast study. Since the previous study there is slight lateral prolapse of the peritoneum around the anterior rib cage in the right upper quadrant with hepatic flexure extending into the prolapsed fat. No rib lesion is identified. There is mild hepatosplenomegaly, as on the previous study. There status post cholecystectomy again noted. Pancreas and adrenal glands appear unremarkable. The exophytic lucency of the upper pole of the left kidney compatible with cyst is again noted. Kidneys show no hydronephrosis or nephrolithiasis. The small bowel appears unremarkable. The cecal region appears unremarkable although appendix is not identified. There is moderate gas and fecal artifact throughout the colon without obstructive distention. There is some sigmoid diverticulosis without pericolic inflammatory change. Uterus and adnexa appear unremarkable except for calcified uterine fibroids. No free fluid or free air are seen in the abdomen. IMPRESSION 1. no acute abdominal findings appreciated 2. right upper quadrant interval changes as described 3. diverticulosis with no pericolic inflammatory changes seen COMMENT Discussed with Tarah De La Torre at the clinic at approximately 1240 hours. Tarah De La Torre APPLICATION SUPPORT ANALYST CT ORDERABLES F inal Result documented in this encounter Visit Diagnoses Diagnosis RUQ pain Abdominal pain, right upper quadrant RUQ pain- Primary Abdominal pain, right upper quadrant documented in this encounter Additional Health Concerns Infection Onset Date Last Indicated Resolved Time COVID-19 06/25/2020 06/25/2020 07/25/2020 8:08 PM RISK DEVELOPER documented as of this encounter Care Teams Fitter Armament Relationship Specialty Start Date End Date Terence Rogers MD [address] [facility] [address] [place] [phone] PCP - General Family Practice 12/20/16 documented as of this encounter
--- OUTSIDE RECORDS SUMMARY | 2025-06-16 16:39 | XMS_ITS | Encounter Summary ---
Author Organization [facility] Address [address] [facility] [address] Cervantes: [place] [address] Care Team Providers Care Manager Credit Name Role Phone Terence Rogers MD Primary Care Provider [phone] [phone] Encounter Details Date Type Department Care Team (Late st Contact Info) Description 01/23/1999 Outpatient Historical Sandra Cates MD [address] [place] [address] Social History Tobacco Use Types Packs/Day Years Used Date Smoking Tobacco: Never Assessed Comments Unknown Sex and Gender Information Value Date Recorded Sex Assigned at Not on file Legal Sex Female 6:46 AM TOW CAR DRIVER Gender Identity Not on file Sexual Orientation Not on file documented as of this encounter Plan of Treatment Not on file documented as of this encounter Visit Diagnoses Not on filedocumented in this encounter Additional Health Concerns Infection Onset Date Last Indicated Resolved Time COVID-19 06/25/2020 06/25/2020 07/25/2020 8:08 PM TOW CAR DRIVER documented as of this encounter Care Teams Manager Credit Relationship Specialty Start Date End Date Terence Rogers MD [address] [facility] [address] [place] [address] PCP - General Family Practice 12/20/16 documented as of this encounter
--- OUTSIDE RECORDS SUMMARY | 2025-06-16 16:39 | XMS_ITS | Encounter Summary ---
Author Organization [facility] Address [address] [place] [address] Care Team Providers Care Workers Compensation Claims Examiner Name Role Phone Terence Rogers MD Primary Care Provider [phone] [phone] Encounter Details Date Type Department Care Team (Late st Contact Info) Description 10/28/2023 Lab Requisition [facility] Medicine Laboratory Services [place] [address] [address] Terence Rogers MD [address] [place] [address] Unspecified intestinal obstruction, unspecified as to partial versus complete obstruction (CMS/HCC) Social History Tobacco Use Types Packs/Day Years Used Date Smoking Tobacco: Former Cigarettes 0 Q uit: 08/14/1971 Smokeless Tobacco: Never Alcohol Use Standard Drinks/Week Comments No 0 (1 standard drink = 0.6 oz pur e alcohol) Feeling Safe Answer Date Recorded Within the last year, have y ou been afraid of your partner or ex-partner? Not asked 11/17/2019 Within the last year, have y ou been humiliated or emotionally abused in other ways by your partner or ex-partner? Not asked 11/17/2019 Physically Abused Not on file 11/17/2019 Sexually Abused Not on file 11/17/2019 Social Connections Answer Date Recorded In a typical week, how many times do you talk on the phone with family, friends, or neighbors? Not asked 11/17/2019 How often do you get together with friends or re latives? Not asked 11/17/2019 How often do you attend amish or alevism serv ices? Not asked 11/17/2019 Do you belong to any clubs o r organizations such as amish groups, unions, fraternal or athletic groups, or school groups? Not asked 11/17/2019 How often do you attend meet ings of the clubs or organizations you belong to? Not asked 11/17/2019 Are you , , di vorced, , never , or living with a partner? Not asked 11/17/2019 Financial Resource Strain Answer Date R ecorded How hard is it for you to pa y for the very basics like food, housing, medical care, and heating? Not hard at all 11/26/2021 Food Insecurity Answer Date Recorded In the past 12 months, have you worried that your food would run out before you had money to buy more? Never true 11/26/2021 In the past 12 months, did y ou run out of food and didn't have money to buy more? Never true 11/26/2021 Transportation Needs Answer Date Record ed In the past 12 months, has l ack of transportation kept you from medical appointments or from getting medications? No 11/26/2021 Lack of Transportation (Non-Medical) Not on file 11/26/2021 Feeling Safe Answer Date Recorded Are you in a relationship wi th someone who hurts you emotionally and/or physically? 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 Gender Identity Not on file Sexual Orientation Not on file documented as of this encounter Plan of Treatment Upcoming Encounters Date Type Department Care Team (Late st Contact Info) Description 06/24/2025 10:00 AM FLEA MARKET SELLER Office Visit [facility] Medicine [place] [address] [phone] Terence Rogers MD [address] [address] (work) documented as of this encounter Procedures Procedure Name Priority Date/Time Associated Diagnosis Comments CBC WITH DIFFERENTIAL Stat 10/28/2023 12:00 PM CDT Unspecified intestinal obstruction, unspecified as to partial versus complete obstruction C-REACTIVE PROTEIN Stat 10/28/2023 12 :00 PM CDT Unspecified intestinal obstruction, unspecified as to partial versus complete obstruction COMPREHENSIVE METABOLIC PANEL Stat 10/28/2023 12:00 PM CDT Unspecified intestinal obstruction, unspecified as to partial versus complete obstruction documented in this encounter Results * (ABNORMAL) C-REACTIVE PROTEIN (10/28/2023 12:00 PM CDT) CRP 19.2(H) <5.0 mg/L 10/28/2023 12:31 PM CDT [facility] Blood 10/28/2023 12:0 0 PM CDT 10/28/2023 12:00 PM CDT Terence Rogers MD CHEMISTRY ORDERABLES Geena deshpande Result [facility] CLIA # [id number] [address] [place] [address] * (ABNORMAL) COMPREHENSIVE METABOLIC PANEL (10/28/2023 12:00 PM CDT) SODIUM 140 136 - 145 mmol/L 10/28/2023 12:30 PM CDT [facility] POTASSIUM 4.7 3.5 - 5.1 mmol/L 10/28/2023 12:30 PM CDT [facility] CHLORIDE 106 98 - 107 mmol/L 10/28/2023 12:30 PM CDT [facility] CO2 23 22 - 29 mmol/L 10/28/2023 12:30 PM CDT [facility] CALCIUM 9.0 8.8 - 10.2 mg/dL 10/28/2023 12:30 PM [facility] BUN 47(H) 8 - 23 mg/dL 10/28/2023 12:30 PM [facility] CREATININE 1.57(H) 0.51 - 0.95 mg/dL 10/28/2023 12:30 PM [facility] Comment:The GFR result is no t clinically significant on patients <18 or >70 years of age. GLUCOSE 185(H) 74 - 99 mg/dL 10/28/2023 12:30 PM [facility] TOTAL PROTEIN 5.7(L) 6.6 - 8.7 g/dL 10/28/2023 12:30 PM [facility] ALBUMIN 3.4(L) 3.5 - 5.2 g/dL 10/28/2023 12:30 PM [facility] BILIRUBIN TOTAL 0.4 <=1.2 mg/dL 10/28/2023 12:30 PM [facility] ALKALINE PHOSPHATASE 201(H) 35 - 104 U/L 10/28/2023 12:30 PM [facility] AST 13 10 - 35 U/L 10/28/2023 12:30 PM [facility] ALT 5(L) 10 - 35 U/L 10/28/2023 12:30 PM [facility] GFR 32 mL/min/1.7 3 sq meter 10/28/2023 12:30 PM [facility] Comment:eGFR calculated with 2020 CKD-EPI equation. Vegetarian diet, extremely high or low muscle mass, and may affect results. Cystatin C with Glomerular Filtration Rate is a suitable alternative for these patients. ANION GAP 11(L) 12 - 20 mmol/L 10/28/2023 12:30 PM [facility] Blood 10/28/2023 12:0 0 PM CDT 10/28/2023 12:00 PM CDT us Terence Rogers MD CHEMISTRY ORDERABLES Geena jeramy Result [facility] CLIA # [id number] [address] [place] [address] * (ABNORMAL) CBC WITH DIFFERENTIAL (10/28/2023 12:00 PM T) [facility] WBC 8.8 4.0 - 10.0 K/uL 10/28/2023 12:19 PM [facility] RBC 3.79(L) 3.93 - 5.22 M/uL 10/28/2023 12:19 PM [facility] HEMOGLOBIN 11.5 11.2 - 15.7 g/dL 10/28/2023 12:19 PM [facility] HEMATOCRIT 37.4 34.1 - 44.9 % 10/28/2023 12:19 PM [facility] MCV 98.7(H) 79.4 - 94.8 fL 10/28/2023 12:19 PM [facility] MCH 30.3 25.6 - 32.2 pg 10/28/2023 12:19 PM [facility] MCHC 30.7(L) 32.2 - 35.5 g/dL 10/28/2023 12:19 PM [facility] RDW 16.2(H) 11.0 - 14.5 % 10/28/2023 12:19 PM [facility] RDW-STDEV 57.9(H) 36.9 - 56.9 fL 10/28/2023 12:19 PM [facility] PLATELETS 126(L) 163 - 337 K/uL 10/28/2023 12:19 PM [facility] MPV 12.2 10.0 - 14.8 fL 10/28/2023 12:19 PM [facility] NEUTROPHILS 80(H) 34 - 71 % 10/28/2023 12:19 PM [facility] LYMPHOCYTES 13(L) 19 - 52 % 10/28/2023 12:19 PM [facility] MONOCYTES 6 5 - 13 % 10/28/2023 12:19 PM [facility] EOSINOPHILS 1 1 - 6 % 10/28/2023 12:19 PM CDT [facility] BASOPHILS 0 0 - 1 % 10/28/2023 12:19 PM CDT [facility] IMMATURE GRANULOCYTES 1 % 10/28/2023 12:19 PM [facility] NEUTROPHIL ABSOLUTE 7.10(H) 1.56 - 6.13 K/uL 10/28/2023 12:19 PM T [facility] LYMPHOCYTE ABSOLUTE 1.12(L) 1.20 - 3.40 K/uL 10/28/2023 12:19 PM T [facility] MONOCYTE ABSOLUTE 0.49(H) 0.24 - 0.36 K/uL 10/28/2023 12:19 PM T [facility] EOSINOPHIL ABSOLUTE 0.05 0.04 - 0.36 K/uL 10/28/2023 12:19 PM [facility] BASOPHILS ABSOLUTE 0.02 0.01 - 0.08 K/uL 10/28/2023 12:19 PM T [facility] IMMATURE GRANULOCYTES ABSOLUTE 0.06 K/uL 10/28/2023 12:19 PM [facility] Blood Collection / Unknown 10/28/2023 12:00 PM CDT 10/28/2023 12:00 PM CDT Terence Rogers MD HEMATOLOGY ORDERABLES Fin al [id number] [address] [place] [address] documented in this encounter Visit Diagnoses Diagnosis Unspecified intestinal obstruction, unspecified as to partial versus complete obstruction (CMS/HCC) documented in this encounter Additional Health Concerns Infection Onset Date Last Indicated Resolved Time R/O COVID-19 03/24/2025 03/24/2025 03/24/2025 9:22 PM CDT R/O GI Pathogen 03/25/2025 03/25/2025 03/26/2025 3 :30 AM CDT documented as of this encounter Care Teams Workers Compensation Claims Examiner Relationship Specialty Start Date End Date Terence Rogers MD [address] [phone] PCP - General Family Practice 12/20/16 documented as of this encounter
--- OUTSIDE RECORDS SUMMARY | 2025-06-16 16:39 | XMS_ITS | Encounter Summary ---
Author Organization [facility] Address [address] [place] [address] Care Team Providers Care Life Skills Coordinator Volunteer Name Role Phone Terence Rogers MD Primary Care Provider [phone] [phone] Reason for Referral * Outpatient Services (Routine) - Closed Specialty Diagnoses / Procedures Referred By Chio shen Referred To Contact Diagnoses Arm pain, left Procedures MRI HUMERUS WO CONTRAST LEFT Faith Harley FNP [address] [place] [address] Phone: tel: fax: [facility] [address] [address] Phone: tel: fax: Referral ID Status Reason Start Date Expiration Date Visits Re quested Visits Authorized [id number] Closed 11/25/2011 11/24/2012 1 1 Encounter Details Date Type Department Care Team (Late st Contact Info) Description 11/25/2011 Ancillary Orders [facility] Medicine [place] [address] [facility] [address] [place] [phone] Faith Harley FNP [address] [place] [address] Arm pain, left Social History Tobacco Use Types Packs/Day Years Used Date Smoking Tobacco: Former Cigarettes 0.5 Q uit: 08/14/1971 Smokeless Tobacco: Never Alcohol Use Standard Drinks/Week Comments No 0 (1 standard drink = 0.6 oz pur e alcohol) Comments No Sex and Gender Information Value Date Recorded Sex Assigned at Not on file 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 An infiltrative marrow process although felt to be less likely cannot be entirely excluded. If clinically indicated and for further evaluation MRI of the cervical spine as well as the brachial plexus may be considered as the next diagnostic algorithm of choice. lucía - uploaded from [employer] - Narrative 11/26/2011 6:26 PM CDT MRI of the left humerus. Reason for study: Left arm pain. Standard technique was performed. Findings: Marrow signal slightly heterogeneous which may be indicative of osteopenia. An infiltrative marrow process is felt to be less likely. The soft tissues demonstrate no discrete soft tissue mass. No collections. 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
--- OUTSIDE RECORDS SUMMARY | 2025-06-16 16:39 | XMS_ITS | Encounter Summary ---
Author Organization [facility] Address [address] [place] [address] Care Team Providers Care Manager Of Investigations Name Role Phone Terence Rogers MD Primary Care Provider [phone] [phone] Encounter Details Date Type Department Care Team (Late st Contact Info) Description 01/15/2015 Ancillary Orders [facility] Admitting [address] [place] [address] Sabi Dick MD [address] [place] [address] Chest pain (Primary Dx) Social History Tobacco Use Types Packs/Day Years Used Date Smoking Tobacco: Former Cigarettes 0.5 20 0 08/14/1952 - [birth year]14/1971 Smokeless Tobacco: Never Alcohol Use Standard Drinks/Week Comments No 0 (1 standard drink = 0.6 oz pur e alcohol) Comments No Sex and Gender Information Value Date Recorded Sex Assigned at Not on file 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 Gender Identity Not on file Sexual Orientation Not on file Occupation Industry Job Start Date Job End Date Not on file Not on file Not on file Not on file documented as of this encounter Plan of Treatment Not on file documented as of this encounter Results * XR CHEST PA AND LATERAL (01/15/2015 11:36 AM CDT) Anatomical Region Laterality Modality Chest Computed Radiogr aphy 01/15/2015 11:2 9 AM CDT Narrative 01/16/2015 8:25 AM CDT PROCEDURE XR CHEST, 2 views, 15 January 2015 COMPARISON Current: PA and lateral chest Prior: PA and lateral chest, 21 September 2014 DESCRIPTION Frontal view of the chest shows no infiltrate or atelectasis and the cardiomediastinal silhouette appears normal. There is some patchy pulmonary parenchymal scarring as on the previous study without apparent interval change. No new focal infiltrate or atelectasis is seen. On the lateral view, no infiltrate or spine sign is seen. Costophrenic angles are clear of effusion posteriorly. IMPRESSION no acute infiltrate or atelectasis seen Procedure Note Jose Kearns MD - 01/16/2015 PROCEDURE XR CHEST, 2 views, 15 January 2015 COMPARISON Current: PA and lateral chest Prior: PA and lateral chest, 21 September 2014 DESCRIPTION Frontal view of the chest shows no infiltrate or atelectasis and the cardiomediastinal silhouette appears normal. There is some patchy pulmonary parenchymal scarring as on the previous study without apparent interval change. No new focal infiltrate or atelectasis is seen. On the lateral view, no infiltrate or spine sign is seen. Costophrenic angles are clear of effusion posteriorly. 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
--- OUTSIDE RECORDS SUMMARY | 2025-06-16 16:39 | XMS_ITS | Encounter Summary ---
Author Organization [facility] Address [address] [place] [address] Care Team Providers Care Cork Compounder Name Role Phone Terence Rogers MD Primary Care Provider [phone] [phone] Encounter Details Date Type Department Care Team (Late st Contact Info) Description 06/29/2018 Telephone Risk Ident [facility] [id number] [place] [id number] Natalie Mariano, SPINDLE CARVER Social History Tobacco Use Types Packs/Day Years Used Date Smoking Tobacco: Former Cigarettes 0.5 20 0 [birth year]/14/1951 - 08/14/1971 Smokeless Tobacco: Never Alcohol Use Standard Drinks/Week Comments No 0 (1 standard drink = 0.6 oz pur e alcohol) Comments No Sex and Gender Information Value Date Recorded Sex Assigned at Not on file 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
--- OUTSIDE RECORDS SUMMARY | 2025-06-16 16:39 | XMS_ITS | Encounter Summary ---
Author Organization [facility] Address [address] [place] [address] Care Team Providers Care Color Worker Name Role Phone Terence Rogers MD Primary Care Provider [phone] Encounter Details Date Type Department Care Team (Late st Contact Info) Description 11/29/2016 Ancillary Orders [facility] Purdy [address] [place] [address] [facility] , TYLER Smith [address] [place] [address] Social History Tobacco Use Types Packs/Day Years Used Date Smoking Tobacco: Former Cigarettes 0.5 20 0 [birth year]/14/1951 - 08/14/1971 Smokeless Tobacco: Never Alcohol Use Standard Drinks/Week Comments No 0 (1 standard drink = 0.6 oz pur e alcohol) Comments No Sex and Gender Information Value Date Recorded Sex Assigned at Not on file 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
--- OUTSIDE RECORDS SUMMARY | 2025-06-16 16:39 | XMS_ITS | Encounter Summary ---
Author Organization [facility] Address [address] [place] [address] Care Team Providers Care Chalk Molding Machine Operator Name Role Phone Terence Rogers MD Primary Care Provider [phone] Reason for Referral * Outpatient Services (Routine) - Closed Specialty Diagnoses / Procedures Referred By Contac t Referred To Contact Radiology Diagnoses Dorsalgia, unspecified Procedures MRI LUMBAR WO CONTRAST Sabi Dick MD [address] [place] [address] Phone: tel: fax: [facility] [address] [facility] [address] [place] [address] Phone: tel: fax: Referral ID Status Reason Start Date Expiration Date V isits Requested Visits Authorized [id number] Closed [facility] CTS to Schedule (SGF) 11/03/2015 12/15/2015 1 1 Encounter Details Date Type Department Care Team (Latest Contact Info) Description 11/03/2015 Ancillary Orders [facility] [address] [facility] [address] [place] [address] Sabi Dick MD [address] [place] [address] Dorsalgia, unspecified (Primary Dx) Social History Tobacco Use Types Packs/Day Years Used Date Smoking Tobacco: Former Cigarettes 0.5 20 0 [birth year]/14/1951 - 08/14/1971 Smokeless Tobacco: Never Alcohol Use Standard Drinks/Week Comments No 0 (1 standard drink = 0.6 oz pur e alcohol) Comments No Sex and Gender Information Value Date Recorded Sex Assigned at Not on file 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 Exam: MRI LUMBAR WO CONTRAST Date/Time of Exam: 11/07/2015 2:56 PM Reason For Exam: Dorsalgia, unspecified. Technique: MRI of the lumbar spine was performed without the administration of intravenous contrast. Findings: The lumbar spine is normal in sagittal alignment. The cauda equina and conus medullaris appear normal. No intradural disease is present. The paraspinal tissues are unremarkable. STIR images show no sites of abnormal signal. Mildly heterogeneous marrow is seen at several levels especially in the L4 body. L1-2: Minimal left central disc herniation is present. L2-3: Moderate right facet arthrosis is present. Mild disc herniation and spondylosis are seen in the right central and subarticular zones causing moderate recess stenosis. L3-4: A mild diffuse disc bulge is present. L4-5: Mild disc herniation and spondylosis are present causing prominent left and mild right recess stenosis and mild spinal stenosis. L5-S1: Disc is largely absent. Spondylosis causes mild bilateral foraminal stenoses. Small disc remnant and spondylosis causes moderate right recess stenosis. IMPRESSION: 1. Marrow heterogeneity is probably physiologic. Active bone lesion cannot be excluded, especially in the L4 body. This is not strongly suspected however. 2. Diffuse and focal disc changes at L4-5 narrow the lateral recesses and causes mild spinal stenosis. This would be expected affect the left and less likely the right L5 nerve roots. 3. Small disc herniation and spondylosis on the right at L2-3 could affect the right L3 nerve root. 4. Some recess stenosis is seen on the right at L5-S1. This could affect the right S1 nerve root. Narrative Procedure Note Charles Schmidt MD - 11/10/2015 IMPRESSION IMPRESSION: Please see below. Exam: MRI LUMBAR WO CONTRAST Date/Time of Exam: 11/07/2015 2:56 PM Reason For Exam: Dorsalgia, unspecified. Technique: MRI of the lumbar spine was performed without the administration of intravenous contrast. Findings: The lumbar spine is normal in sagittal alignment. The cauda equina and conus medullaris appear normal. No intradural disease is present. The paraspinal tissues are unremarkable. STIR images show no sites of abnormal signal. Mildly heterogeneous marrow is seen at several levels especially in the L4 body. L1-2: Minimal left central disc herniation is present. L2-3: Moderate right facet arthrosis is present. Mild disc herniation and spondylosis are seen in the right central and subarticular zones causing moderate recess stenosis. L3-4: A mild diffuse disc bulge is present. L4-5: Mild disc herniation and spondylosis are present causing prominent left and mild right recess stenosis and mild spinal stenosis. L5-S1: Disc is largely absent. Spondylosis causes mild bilateral foraminal stenoses. Small disc remnant and spondylosis causes moderate right recess stenosis. IMPRESSION: 1. Marrow heterogeneity is probably physiologic. Active bone lesion cannot be excluded, especially in the L4 body. This is not strongly suspected however. 2. Diffuse and focal disc changes at L4-5 narrow the lateral recesses and causes mild spinal stenosis. This would be expected affect the left and less likely the right L5 nerve roots. 3. Small disc herniation and spondylosis on the right at L2-3 could affect the right L3 nerve root. 4. Some recess stenosis is seen on the right at L5-S1. This could affect the right S1 nerve root. 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
--- OUTSIDE RECORDS SUMMARY | 2025-06-16 16:39 | XMS_ITS | Clinical Summary ---
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 control. A1c targets should be individualized based on duration of diabetes, age, comorbid conditions, and other considerations. Currently, no consensus exists regarding use of hemoglobin A1c for diagnosis of diabetes for children. Test Performed at: [facility] [address] [place] [address] Abbe Portillo D.O., MPH Blood 01/01/2021 9:55 AM CDT 01/02/2021 2:36 AM CDT us Terence Rogers MD CHEMISTRY ORDERABLES Geena deshpande Result [facility] [place] [address] [place] [address] * (ABNORMAL) LIPID PANEL (01/01/2021 9:55 AM CDT) CHOLESTEROL 182 <200 mg/dL [facility] HDL 57 > OR = 50 mg/dL [facility] TRIGLYCERIDE 161(H) <150 mg/dL [facility] LDL CALCULATED 99 mg/dL (calc) [facility] Comment: Reference range: <100 Desirable range <100 mg/dL for primary prevention; <70 mg/dL for patients with CHD or diabetic patients with > or = 2 CHD risk factors. LDL-C is now calculated using the Soledad calculation, which is a validated novel method providing better accuracy than the Friedewald equation in the estimation of LDL-C. Daniel SS et al. MAGO. 2013;310(19): 8255-0585 (http://education.[facility]/faq/XZU188) CHOL/HDL RATIO 3.2 <5.0 (calc) [facility] TOTAL NON-HDL CHOL(LDL+VLDL) 125 <130 mg/dL (calc) [facility] Comment: For patients with diabetes plus 1 major ASCVD risk factor, treating to a non-HDL-C goal of <100 mg/dL (LDL-C of <70 mg/dL) is considered a therapeutic option. Test Performed at: [facility] [address] [place] [address] Abbe Portillo D.O., MPH Blood 01/01/2021 9:55 AM CDT 01/02/2021 2:36 AM CDT Terence Rogers MD CHEMISTRY ORDERABLES Geena deshpande Result [facility] [address] [place] [address] * HM DIABETES EYE EXAM (12/10/2020) us Abstract Spg Provider HEALTH MAINTENANCE Final R esult * (ABNORMAL) MICROALBUMIN/CREATININE RATIO, RANDOM UR (09/07/2019 2:30 PM MEDICAL CASE WORKER) MICROALBUMIN, URINE 8.0 No Reference Range mg/dL 09/07/2019 9:15 PM MEDICAL CASE WORKER [facility] CREATININE, URINE 33.5 29.0 - 226.0 mg/dL 09/07/2019 9:15 PM MEDICAL CASE WORKER [facility] Comment:Reference Range vari es with fluid intake and diet. MICROALBUMIN/ CREAT RATIO, UR 238.8(H) <25.0 mg/g 09/07/2019 9:15 PM MEDICAL CASE WORKER [facility] Urine URINE SPECIMEN OBTAINED BY CLEAN CATCH PROCEDURE / Unknown Collection / Unknown 09/07/2019 2:30 PM MEDICAL CASE WORKER 09/07/2019 8:21 PM MEDICAL CASE WORKER Narrative [facility] - 09/07/2019 9:15 PM MEDICAL CASE WORKER Condition Microalbumin/Creat ratio Normal Males <17 Normal Females <25 Microalbuminuria Males 17-299 Microalbuminuria Females 25-299 Overt proteinuria >=300 Terence Rogers MD URINE ORDERABLES Final Re sult [facility] IA# [id number] [address] [place] [address] * COLONOSCOPY REPORT (05/31/2018 10:05 AM MEDICAL CASE WORKER) Narrative Procedure Note Shemar Saenz MD - 05/31/2018 10:04 AM CST [facility] GI Patient Name: Vaibhav Ramsey Procedure Date: 05/31/2018 Date of : 1940 Admit Type: Outpatient Age: 77 Attending MD: Shemar Saenz , Procedure: Colonoscopy Indications: Heme positive stool Providers: Misa Camarena, Dawn Brown Referring MD: Terence Rogers Medicines: Monitored Anesthesia Care Complications: No immediate complications. Procedure: Pre-Anesthesia Assessment: - The risks and benefits of the procedure and the sedation options and risks were discussed with the patient. All questions were answered and informed consent was obtained. - ASA Grade Assessment: III - A patient with severe systemic disease. After I obtained informed consent, the scope was passed under direct vision. Throughout the procedure, the patient's blood pressure, pulse, and oxygen saturations were monitored continuously. The Colonoscope was introduced through the anus and advanced to the cecum, identified by appendiceal orifice and ileocecal valve. The colonoscopy was performed without difficulty. The patient tolerated the procedure well. The quality of the bowel preparation was adequate. Estimated Blood Loss: Estimated blood loss: none. Findings: The perianal and digital rectal examinations were normal. Many diverticula were found in the sigmoid colon. Internal hemorrhoids were found during retroflexion. The hemorrhoids were small. The exam was otherwise without abnormality. Impression: - Diverticulosis in the sigmoid colon. - Internal hemorrhoids. - The examination was otherwise normal. - No specimens collected. Recommendation: - Return to primary care physician as previously scheduled. Shemar Saenz, 05/31/2018 10:04:26 AM Number of Addenda: 0 Note Initiated On: 05/31/2018 9:11 AM Scope Withdrawal Time 0 hours 9 minutes 29 seconds Scope In: 9:42:47 AM Scope Out: 9:59:13 AM [address] [place], [place] us Shemar Saenz MD GI PROCEDURE ORDERABLES Final Result * (ABNORMAL) OCCULT BLOOD IMMUNOASSAY, COLORECTAL SCREEN (04/10/2018 2:34 PM CDT) OCCULT BLOOD, STOOL Positive(A ) Negative 04/11/2018 10:59 AM CDT [facility] Stool STOOL SPECIMEN / Unknown Collection / Unknown 04/10/2018 2:34 PM CDT 04/10/2018 8:36 PM CDT us Terence Rogers MD BODY FLUIDS AND STOOLS Fi nal Result [facility] WHEAT# [id number] [address] [place] [address] * DIABETES FOOT EXAM (02/06/2013) Paco Fonseca MD HEALTH MAINTENANCE Final Result * XR DEXA BONE DENSITY AXIAL 1 OR MORE SITES (09/28/2011 1:35 PM CDT) Anatomical Region Laterality Modality Digital Radiogra phy 09/28/2011 1:35 PM CDT Narrative 09/28/2011 4:29 PM CDT Bone mineral densitometry was assessed by DEXA of the lumbar spine and left hip. Total density measured in the lumbar spine is 1.16 g/sq cm for a T score of 0.0. The total bone density of the left hip measures 0.935 g/sq cm for a T score of -0.1. The femoral neck region measures 0.544 grams percent square meters for a T score of -2.7 IMPRESSION osteoporosis with high fracture risk Procedure Note Jose Kearns MD - 09/28/2011 Bone mineral densitometry was assessed by DEXA of the lumbar spine and left hip. Total density measured in the lumbar spine is 1.16 g/sq cm for a T score of 0.0. The total bone density of the left hip measures 0.935 g/sq cm for a T score of -0.1. 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 Advance Directive Living Will 11/06/2018 11:29 AM Advance Directive Living Will Advance Directive POA 09/27/2018 1:11 PM A dvance Directive POA Advance Directive Living Will 09/27/2018 1:10 PM Advance Directive Living Will * Full Code (Latest Code Status on File) Date Activated Date Inactivated Comments 07/17/2019 1:02 AM 07/23/2019 4:03 PM * Full Code Date Activated Date Inactivated Comments 07/14/2019 2:55 AM 07/15/2019 7:29 PM * Full Code Date Activated Date Inactivated Comments 07/11/2019 9:18 PM 07/13/2019 2:07 PM * Full Code Date Activated Date Inactivated Comments 09/25/2018 5:00 PM 09/28/2018 2:18 PM * Full Code Date Activated Date Inactivated Comments 09/25/2018 12:18 PM 09/25/2018 4:15 PM Care Teams Manager Tax Relationship Specialty Start Date End Date Terence Rogers MD [address] [address] PCP - General Family Practice 12/20/16
--- OUTSIDE RECORDS SUMMARY | 2025-06-16 16:39 | XMS_ITS | Encounter Summary ---
[facility] Organization [facility] Address [address] [place] [address] Care Team Providers Care Medical Record Retrieval Specialist Name Role Phone Terence Rogers MD Primary Care Provider [phone] [phone] Encounter Details Date Type Department Care Team (Latest Contact Info) Description 03/30/2006 Outpatient Historical [facility] [place] [place] [facility] [address] [place] [phone] Saeid Crump MD NO ADDRESS ON FILE Pain in Joint, Lower Leg (Primary Dx); Primary Localized Osteoarthrosis, Lower Leg; Pain in Joint, Ankle and Foot Social History Tobacco Use Types Packs/Day Years Used Date Smoking Tobacco: Never Assessed Comments Unknown Sex and Gender Information Value Date Recorded Sex Assigned at Not on file Legal Sex Female 6:46 AM GRADUATE NURSE Gender Identity Not on file Sexual Orientation Not on file documented as of this encounter Plan of Treatment Not on file documented as of this encounter Visit Diagnoses Diagnosis Pain in joint, lower leg- Primary Primary localized osteoarthrosis, lower leg Pain in joint, ankle and foot documented in this encounter Additional Health Concerns Infection Onset Date Last Indicated Resolved Time COVID-19 06/25/2020 06/25/2020 07/25/2020 8:08 PM GRADUATE NURSE documented as of this encounter Care Teams Medical Record Retrieval Specialist Relationship Specialty Start Date End Date Terence Rogers MD [address] [facility] [address] [place] [phone] PCP - General Family Practice 12/20/16 documented as of this encounter
--- OUTSIDE RECORDS SUMMARY | 2025-06-16 16:39 | XMS_ITS | Encounter Summary ---
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
--- OUTSIDE RECORDS SUMMARY | 2025-06-16 16:39 | XMS_ITS | Encounter Summary ---
Author Organization [facility] Address [address] [place] [address] Care Team Providers Care Plate Grinder Name Role Phone Terence Rogers MD Primary Care Provider [phone] [phone] Reason for Referral * Radiology Services (Routine) - Closed Specialty Diagnoses / Procedures Referred By Contac t Referred To Contact Radiology Diagnoses Urinary incontinence without sensory awareness Bilateral renal cysts Procedures US RENAL AND BLADDER US RENAL US RENAL Brionna Colon MD [address] [place] [address] Phone: tel: fax: [facility] Ultrasound [place] [address] [place] [address] Phone: tel: fax: Referral ID Status Reason Start Date Expiration Date V isits Requested Visits Authorized [id number] Closed [facility] View CTS to Schedule (SGF) 06/13/2019 07/13/2020 1 1 R UP Encounter Details Date Type Department Care Team (Latest Contact Info) Description 06/15/[address] [facility] [place] [address] [facility] [address], 3rd [place] [address] Brionna Colon MD [address] [place] [address] [address] [place] [address] Urinary incontinence without sensory awareness; Bilateral renal cysts Social History Tobacco Use Types Packs/Day Years Used Date Smoking Tobacco: Former Cigarettes 0.5 20 0 08/14/1951 - 08/14/1971 Smokeless Tobacco: Never Alcohol Use Standard Drinks/Week Comments No 0 (1 standard drink = 0.6 oz pur e alcohol) Comments No Sex and Gender Information Value Date Recorded Sex Assigned at Not on file Legal Sex Female 6:46 AM LAYER UP Gender Identity Not on file Sexual Orientation Not on file Occupation Industry Job Start Date Job End Date Not on file Not on file Not on file Not on file documented as of this encounter Plan of Treatment Not on file documented as of this encounter Results * US RENAL AND BLADDER (06/15/2019 9:50 AM LAYER UP) Anatomical Region Laterality Modality Abdomen Ultrasound 06/15/2019 9:50 AM LAYER UP Impressions 06/15/2019 8:26 PM LAYER UP IMPRESSION: 1. Findings suggestive of medical renal disease. 2. Multiple simple cysts of the bilateral kidneys. The largest is a 3.9 cm exophytic cyst in the superior pole of the right kidney. Narrative 06/15/2019 8:26 PM LAYER UP EXAM: Ultrasonography of kidneys and bladder. DIAGNOSIS/REASON FOR EXAM: Urinary incontinence without sensory awareness; Bilateral renal cysts. DATE AND TIME: 06/15/2019, 9:50 AM. COMPARISON: None TECHNIQUE: Real-time avendano scale images of the kidneys and bladder were performed in transverse and longitudinal projections. FINDINGS: Right Kidney: The right kidney measures 11.7 cm in length. The renal parenchyma is diffusely hyperechoic. In the mid to inferior right kidney, there is a 1.4 x 1.3 x 1.2 cm round well-circumscribed anechoic lesion. A similar-appearing, smaller lesions in the right kidney measuring 0.6 cm in diameter and 1.2 cm in diameter. There is no evidence of solid renal mass, calculus, or hydronephrosis. Left Kidney: The left kidney measures 12.6 cm in length. The renal parenchyma is diffusely hyperechoic. The left kidney contains multiple round well-circumscribed anechoic lesions. The largest is an exophytic lesion in the superior pole of the right kidney that measures 3.4 x 2.8 x 3.9 cm. There is no evidence of solid renal mass, calculus, or hydronephrosis. Bladder: The moderately distended bladder is unremarkable. Procedure Note Javon Pace MD - 06/15/2019 EXAM: Ultrasonography of kidneys and bladder. DIAGNOSIS/REASON FOR EXAM: Urinary incontinence without sensory awareness; Bilateral renal cysts. DATE AND TIME: 06/15/2019, 9:50 AM. COMPARISON: None TECHNIQUE: Real-time avendano scale images of the kidneys and bladder were performed in transverse and longitudinal projections. FINDINGS: Right Kidney: The right kidney measures 11.7 cm in length. The renal parenchyma is diffusely hyperechoic. In the mid to inferior right kidney, there is a 1.4 x 1.3 x 1.2 cm round well-circumscribed anechoic lesion. A similar-appearing, smaller lesions in the right kidney measuring 0.6 cm in diameter and 1.2 cm in diameter. There is no evidence of solid renal mass, calculus, or hydronephrosis. Left Kidney: The left kidney measures 12.6 cm in length. The renal parenchyma is diffusely hyperechoic. The left kidney contains multiple round well-circumscribed anechoic lesions. The largest is an exophytic lesion in the superior pole of the right kidney that measures 3.4 x 2.8 x 3.9 cm. There is no evidence of solid renal mass, calculus, or hydronephrosis. Bladder: The moderately distended bladder is unremarkable. IMPRESSION: 1. Findings suggestive of medical renal disease. 2. Multiple simple cysts of the bilateral kidneys. The largest is a 3.9 cm exophytic cyst in the superior pole of the right kidney. 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
--- OUTSIDE RECORDS SUMMARY | 2025-06-16 16:39 | XMS_ITS | Encounter Summary ---
Author Organization [employer] Address [address] [place] [address] Care Team Providers Care Copy Reader Name Role Phone Terence Rogers MD Primary Care Provider [phone] Reason for Visit * Reason Onset Date Comments Hospital Follow Up 09/27/2021 Encounter Details Date Type Department Care Team (Late st Contact Info) Description 09/27/2021 Telephone [facility] Nurse medical transcription radiology [address] [place] [address] Tisha Mortensen, [facility] Hospital Follow Up Social History Tobacco Use Types Packs/Day Years [...] asked 11/17/2019 How often do you attend jainism or temple serv ices? Not asked 11/17/2019 Do you belong to any clubs o r organizations such as jainism groups, unions, fraternal or athletic groups, or school groups? Not asked 11/17/2019 How often do you attend meet ings of the clubs or organizations you belong to? Not asked 11/17/2019 Are you , , di vorced, , never , or living with a partner? Not asked 11/17/2019 Food Insecurity Answer Date Recorded In the past 12 months, have you worried that your food would run out before you had money to buy more? Never true 03/26/2021 In the past 12 months, did y ou run out of food and didn't have money to buy more? Never true 03/26/2021 Transportation Needs Answer Date Record ed In the past 12 months, has l ack of transportation kept you from medical appointments or from getting medications? No 03/26/2021 Lack of Transportation (Non-Medical) Not on file 03/26/2021 Comments No Sex and Gender Information Value Date Recorded Sex Assigned at Not on file Legal Sex Female 1:01 PM HARDBOARD PANEL PRINTER Gender Identity Not on file Sexual Orientation Not on file COVID-19 Exposure Response Date Recorded In the last month, have you been in contact with someone who was confirmed or suspected to have Coronavirus / COVID-19? No / Unsure 09/29/2021 12:47 PM CDT documented as of this encounter Miscellaneous Notes * Telephone Encounter - Tisha Mortensen - 09/27/2021 3:20 PM CDT Patient Discharge Date: 09/26/21 Patient Admitting Diagnosis: Pneumonia due to infectious disease Date of Hospital Follow-Up Appointment: 09/29/21, 1:20pm with Terence Rogers MD. Hospital follow-up appointment made within 5 days of discharge. Patient has been made aware. If there are any questions about this message, please email [email or web address] documented in this encounter Plan of Treatment Upcoming Encounters Date Type Department Care Team (Late st Contact Info) Description 06/24/2025 10:00 AM HARDBOARD PANEL PRINTER Office Visit [facility] [address] [phone] Terence Rogers MD [address] [phone] documented as of this encounter Visit Diagnoses Not on filedocumented in this encounter Additional Health Concerns Infection Onset Date Last Indicated Resolved Time R/O GI Pathogen 05/24/2023 05/24/2023 05/24/2023 4 :05 PM HARDBOARD PANEL PRINTER R/O COVID-19 05/29/2023 05/29/2023 05/29/2023 7:24 PM HARDBOARD PANEL PRINTER R/O COVID-19 03/24/2025 03/24/2025 03/24/2025 9:22 PM CDT R/O GI Pathogen 03/25/2025 03/25/2025 03/26/2025 3 :30 AM CDT Assessment Noted Time PHQ-9 Depression Total Score: 2 09/24/19 22 5:11 PM CDT documented as of this encounter Care Teams Copy Reader Relationship Specialty Start Date End Date Terence Rogers MD [address] [phone] PCP - General Family Practice 12/20/16 documented as of this encounter
--- OUTSIDE RECORDS SUMMARY | 2025-06-16 16:39 | XMS_ITS | Encounter Summary ---
Author Organization [facility] Address [address] [place] [address] Care Team Providers Care Technology Architect Name Role Phone Terence Rogers MD Primary Care Provider [phone] [phone] Encounter Details Date Type Department Care Team (Late st Contact Info) Description 05/11/2025 Results Follow-Up [facility] Emergency Medicine [address] [facility] [address] [place] [address] Myranda Mayer FNP [address] [facility] [address] [place] [address] SPUTUM CULTURE WITH GRAM STAIN Social History Tobacco Use Types Packs/Day Years [...] asked 11/17/2019 How often do you attend hoahaoism or nondenominational serv ices? Not asked 11/17/2019 Do you belong to any clubs o r organizations such as hoahaoism groups, unions, fraternal or athletic groups, or [...] of Transportation (Non-Medical) Not on file 11/26/2021 Food Insecurity Answer Date Recorded Do you find you are eating l ess than you should because you can t pay for food? No 05/10/2025 Transportation Needs Answer Date Record ed Have you gone without health care because you didn t have a way to get there? Or worry about transportation for future doctor visits, bean picker medication, etc.? No 2024 Housing Stability Answer Date Recorded Do you worry you won t have a steady place to sleep or struggle to pay rent or mortgage? No 05/10/2025 Utility Needs Answer Date Recorded Do you have difficulty payin g for utility costs (electric, water or gas bills)? No 05/10/2025 Medication Needs Answer Date Recorded Have you skipped taking medi cation due to cost or worry you can t afford new medications? No 05/10/2025 Feeling Safe Answer Date Recorded Are you in a relationship wi th someone who hurts you emotionally and/or physically? No 05/10/2025 Food Insecurity Answer Date Recorded Patient needs follow up regardin 03/25/2025 Transportation Needs Answer Date Record ed Patient needs follow up regardin 03/25/2025 Utility Needs Answer Date Recorded Patient needs follow up regardin 03/25/2025 Comments No Sex and Gender Information Value Date Recorded Sex Assigned at Not on file Legal Sex Female 1:01 PM HOUSING COORDINATOR Gender Identity Not on file Sexual Orientation Not on file documented as of this encounter Plan of Treatment Upcoming Encounters Date Type Department Care Team (Late st Contact Info) Description 06/24/2025 10:00 AM HOUSING COORDINATOR Office Visit [facility] Medicine [place] [address] [address] Terence Rogers MD [address] [phone] documented as of this encounter Visit Diagnoses Not on filedocumented in this encounter Care Teams Technology Architect Relationship Specialty Start Date End Date Terence Rogers MD [address] [address] PCP - General Family Practice 12/20/16 documented as of this encounter
--- OUTSIDE RECORDS SUMMARY | 2025-06-16 16:39 | XMS_ITS | Clinical Summary ---
Author Organization [facility] Address [address] [place] [address] Care Team Providers Care Comparator Operator Name Role Phone Terence Rogers MD Primary Care Provider [phone] Allergies Active Allergy Reactions Criticality Noted Date Comments Codeine Palpitations Low 02/03/2009 Flecainide Unknown 11/26/2022 Garlic Abdominal Pain Low 10/11/2021 Belching and stomach upset Iodinated Contrast Media Anaphylaxis High 05/29/2013 Mucomyst-20 Other (See Comments) 08/14/2010 Pt states dry's her out Naproxen Nausea and Vomiting Low 01/31/2012 Penicillins Rash Low 02/03/2009 Shellfish Derived Unknown 05/25/2023 Sulfa (Sulfonamide Antibiotics) Itching Low 02/03/2009 Tramadol Hcl Delirium Medium 08/06/2010 Medications bi-level machineIndication s:Obstructive sleep apnea syndrome Bipap: IPAP 13 and 7 EPAP with heated humidifier. Length of Need: 99 mo Cpap/Bipap supplies: nasal mask with headgear A7034,A7035 1/6mo, mask only A7034 1/3mo, cushion A7032 2/mo, non heated tubing A7037 1/3mo, water chamber A7046 1/6mo, filter disposable A7038 2/mo, Filter reusable A7039 1/6mo Length of need: 99 months DX G47.33 1 Each 0 019 Active sennosides-docusa te sodium (SENNA-S) 8.6-50 mg tablet Take 1 Tablet by mouth 2 times daily. 180 Tablet 2 019 Active Syringe with Needle, Disp, (BD Luer-Demetria Syringe) 3 mL 23 gauge x 1 /2 Syringe USE FOR B12 INJECTION 12 Each 3 020 Active lancets TEST SUGARS 3 TIMES DAILY. 300 Each 5 020 Active metoprolol tartrate (LOPRESSOR) 25 mg tablet Take 25 mg by mouth 2 times daily. 020 Active propafenone (RYTHMOL) 150 mg Tablet Active ferrous sulfate 325 mg (65 mg iron) tablet 2 times daily. Ac tive ondansetron (ZOFRAN ODT) 4 mg Tablet, Rapid Dissolve Take 1 Tablet (4 mg) by mouth every 6 hours as needed for Nausea or Emesis. Dissolve tablet on top of tongue, then swallow with saliva. 30 Tablet 11 Active dapagliflozin propanediol (Farxiga) 10 mg TabletIndications :Chronic combined systolic and diastolic congestive heart failure (CMS/HCC) Take 1 Tablet (10 mg) by mouth daily in the morning. 100 Tablet 3 Active naloxone (NARCAN) 4 mg/spray [place], Non-AerosolIndica tions:terminal system operator prescription opiate use Administer 1 [place] (4 mg) in one nostril (alternate nostril with each dose) one time as needed for Respiration (Altered consciousness related to opioid overdose). Push plunger to administer. Call 911. May repeat dose, every 2-3 minutes, if the person does not wake up or breathing is not improved. 2 Each 3 Active sertraline (ZOLOFT) 100 mg tabletIndications :Mild episode of recurrent major depressive disorder Take 1 tablet by mouth once daily 100 Tablet 3 025 Active baclofen (LIORESAL) 5 mg tabletIndications :Cervical disc herniation,Cervic algia Take 1 tablet by mouth twice daily as needed for pain 200 Tablet 3 Active albuterol sulfate HFA 90 mcg/actuation aerosol inhalerIndication s:Mucopurulent chronic bronchitis (CMS/HCC) Take 2 Puffs by inhalation every 4 hours as needed for Respiration. 8.5 Gram 11 025 Active Breztri Aerosphere 160 mcg-9mcg-4.8mcg/a ctuation HFA aerosol inhalerIndication s:Mucopurulent chronic bronchitis (CMS/HCC) Take 2 Puffs by inhalation 2 times daily. 10.7 Gram 11 025 Active diabetic shoes with insertsIndication s:Type 2 diabetes mellitus with diabetic neuropathy, with long-term current use of insulin ([facility]) DETAILED ORDER AND STATEMENT OF CERTIFYING PHYSICIAN FOR DIABETIC SHOESLON: 99 months. I certify that the patient has diabetes mellitus and peripheral neuropathy and decreased circulation. Patient is being treated under comprehensive plan for diabetes and needs shoes and inserts because of the condition. Dispense 1 pr/year shoe and 3 pr/year inserts A5500 AND A5513.[address] [place], [place] [id number] 1 Each 025 Active levothyroxine 100 mcg tabletIndications :Acquired hypothyroidism Take 1 tablet by mouth once daily 100 Tablet 3 025 Active isosorbide mononitrate (IMDUR) 120 mg Extended Release 24 hour tablet TAKE 1 TABLET BY MOUTH ONCE DAILY IN THE MORNING 100 Tablet 3 025 Active apixaban (Eliquis) 2.5 mg tabletIndications :Paroxysmal atrial fibrillation ([facility]),Chronic anticoagulation Take 1 tablet by mouth twice daily 200 Tablet 1 025 Active Blood-Glucose Meter KitIndications:Ty pe 2 diabetes mellitus with stage 3 chronic kidney disease, with long-term current use of insulin, unspecified whether stage 3a or 3b CKD ([facility]) Use to check blood sugars 2 times daily E11.22 1 Each 025 Active pravastatin (PRAVACHOL) 40 mg tabletIndications :Mixed hyperlipidemia Take 1 tablet by mouth once daily 90 Tablet 1 025 Active pramipexole (MIRAPEX) 0.5 mg tabletIndications :Parkinson disease ([facility]/HCC) TAKE 2 TABLETS BY MOUTH ONCE DAILY AT BEDTIME 180 Tablet 1 025 Active allopurinoL (ZYLOPRIM) 300 mg tablet Take 1 tablet by mouth twice daily 200 Tablet 1 025 Active cetirizine (ZyrTEC) 10 mg tabletIndications :Mucopurulent chronic bronchitis (CMS/HCC) Take 1 Tablet (10 mg) by mouth daily at bedtime. 30 Tablet 5 025 Active ipratropium bromide (ATROVENT) 42 mcg (0.06 %) [place], Non-AerosolIndica tions:Mucopurulen t chronic bronchitis (CMS/HCC) Administer 2 Sprays in each nostril 2 times daily with meals. 15 mL 5 025 Active furosemide (LASIX) 40 mg tabletIndications :Chronic combined systolic and diastolic congestive heart failure (CMS/HCC) TAKE 1 TABLET BY MOUTH ONCE DAILY IN THE MORNING AND 1 ONCE DAILY AFTER LUNCH 200 Tablet 1 025 Active Accu-Chek Guide Me Glucose Mtr USE TO CHECK BLOOD SUGAR TWICE DAILY 025 Active mupirocin (BACTROBAN) 2 % OintmentIndicatio ns:Skin tear of left hand without complication, initial encounter Apply to affected area 2 times daily. 30 Gram 025 Active nystatin (MYCOSTATIN) 100,000 unit/gram CreamIndications: Intertrigo Apply to affected area 2 times daily. 60 Gram 5 025 Active fluticasone propionate (FLONASE) 50 mcg/spray [place], Suspension nasal inhalerIndication s:Fluid level behind tympanic membrane of both ears Administer 2 Sprays in each nostril daily. 16 Gram 2 025 Active spironolactone (ALDACTONE) 25 mg tabletIndications :Chronic combined systolic and diastolic congestive heart failure (CMS/HCC) Take 1 Tablet (25 mg) by mouth daily. 100 Tablet 2 025 Active peg 3350-electrolytes (GOLYTELY) 236-22.74-6.74 -5.86 gram Recon Soln TAKE DIRECTED ONE TIME ONLY FOR 1 DOSE. 025 Active blood sugar diagnostic (Accu-Chek Guide test strips) StripIndications: Type 2 diabetes mellitus with stage 3 chronic kidney disease, with long-term current use of insulin, unspecified whether stage 3a or 3b CKD (CMS/HCC) TEST BLOOD SUGAR 3 TIMES DAILY DX:E11.22 300 Each 2 025 Active predniSONE (DELTASONE) 10 mg tabletIndications :Intercostal muscle pain Take 4 tablets for 3 days then 3 tablets for 3 days then 2 tablets for 3 days and 1 tablet for 3 days 30 Tablet 025 Active nystatin (MYCOSTATIN) 100,000 unit/mL suspensionIndicat ions:Oral thrush Take 5 mL (500,000 Units) by mouth 4 times daily. 473 mL 025 Active eszopiclone (Lunesta) 1 mg TabletIndications :Primary insomnia Take 1 Tablet (1 mg) by mouth nightly as needed for Insomnia. 7 Tablet 025 Active insulin glargine (Lantus Solostar U-100 Insulin) 100 unit/mL pen syringeIndication s:Type 2 diabetes mellitus with stage 3 chronic kidney disease, with long-term current use of insulin, unspecified whether stage 3a or 3b CKD (CMS/HCC) INJECT 20 UNITS SUBCUTANEOUSLY ONCE DAILY AT BEDTIME 45 mL 1 Active Insulin [place], Disposable, (BD Ultra-Fine Mini Pen Needle) 31 gauge x 3/16 Needle USE 1 THREE TIMES DAILY OR DIRECTED 100 Each 2 Active carbidopa-levodop a (SINEMET) 25-100 mg tabletIndications :Parkinson disease ([facility]) TAKE 1 TABLET BY MOUTH THREE TIMES DAILY 300 Tablet 2 Active oxyCODONE-acetami nophen (PERCOCET) 10-325 mg TabletIndications :Chronic pain syndrome,Degenera tive cervical spinal stenosis,Lumbar degenerative disc disease Take 1 Tablet by mouth every 8 hours as needed for Pain, Moderate. Max Daily Amount: 3 Tablets 90 Tablet Active Insulin [place], Disposable, 31 gauge x 3/16 Needle USE THREE TIMES DAILY OR DIRECTED 100 Each 5 025 2024 Discontinued carbidopa-levodop a (SINEMET) 25-100 mg tabletIndications :Parkinson disease (CMS/HCC) TAKE 1 TABLET BY MOUTH THREE TIMES DAILY 300 Tablet 025 2024 Discontinued oxyCODONE-acetami nophen (PERCOCET) 10-325 mg TabletIndications :Chronic pain syndrome,Degenera tive cervical spinal stenosis,Lumbar degenerative disc disease Take 1 Tablet by mouth every 8 hours as needed for Pain, Moderate. Max Daily Amount: 3 Tablets 90 Tablet 025 2024 Discontinued( Reorder) cefdinir (OMNICEF) 300 mg capsule Take 1 Capsule (300 mg) by mouth every 12 hours for 10 days. 20 Capsule 025 2024 dextromethorphan- guaiFENesin 60-1,200 mg Tablet Sustained Release 12HR Take 1 Tablet by mouth 2 times daily for 10 days. 20 Tablet 025 2024 Hospital, Clinic, or Other Facility Administered Medication Ordered Dose Route Frequency Start Date End Date Status cyanocobalamin (VITAMIN B-12) injection 1,000 mcgIndications:Low maternal serum vitamin B12 1000 mcg IM EVERY MONTH 07/26/2023 Active Active Problems Problem Noted Date Diagnosed Date COPD with exacerbation 03/25/2025 Mesenteric artery stenosis 03/13/2025 Head injury without concussion or intracranial h emorrhage 09/20/2024 Wrist injury, right, initial encounter 5 Injury, knee 09/20/2024 Generalized osteoarthritis of multiple sites 04/2024 Intertrigo 06/19/2024 Foraminal stenosis of cervical region 05/24/2023 Central stenosis of spinal canal 05/24/2023 Chronic diarrhea 05/24/2023 PUD (peptic ulcer disease) 12/21/2021 Pneumonia due to infectious organism 09/26/2021 Dependence on other enabling machines and device s 08/24/2021 Mild episode of recurrent major depressive disor ralf 03/26/2021 Gastritis and duodenitis 10/17/2020 History of 2019 novel coronavirus disease (COVID -19) 07/19/2020 PSVT (paroxysmal supraventricular tachycardia) 0 07/18/2020 Gait instability 06/12/2020 Need for assistance with personal care 0 Adjustment disorder with depressed mood 04/03/20 20 Overview (01/13/2021): ADDED PER PB QUERY DOS 9.17.2019 Calcified granuloma of lung 04/01/2020 Overview (01/13/2021): ADDED PER PVQ RESPONSE DOS 9 Aortic atherosclerosis 04/01/2020 Overview (01/13/2021): ADDED PER PVQ RESPONSE DOS 9 Right bundle branch block 02/19/2020 Paroxysmal atrial fibrillation 02/19/2020 Anticoagulated 02/19/2020 KIARA treated with BiPAP 12/28/2018 Moderate mitral stenosis 10/24/2018 Moderate tricuspid regurgitation 10/24/2018 Mild aortic stenosis 10/24/2018 History of lymph node excision 10/03/2018 Chronic anticoagulation 09/25/2018 Pre-ulcerative corn or callous 08/22/2018 GERD (gastroesophageal reflux disease) 9 History of right mastectomy 04/06/2018 terminal system operator prescription opiate use 04/06/2018 Cervical disc herniation [...] with long-term current use of insulin 12/20/2016 Parkinson's disease without dyskinesia or fluctuating manifestations 12/20/2016 Carpal tunnel syndrome, S/P L CTR (2012) 013 Overview (01/13/2021): Conservative management with splints Lumbar degenerative disc disease 09/07/2012 Overview (01/13/2021): MRI: 06/21 Osteoporosis 09/29/2011 Overview (01/13/2021): BMD (09/19): Spine 0.0, Hip -2.7 25-Vitamin D: 23 (01/19) Osteoarthritis of knee, Bila teral, S/P L Knee Replacement (07/22) 11/19/2010 Overview (01/13/2021): Xray L knee: 11/17 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 Normal LV. Followed by Dr. Mathis. Overflow incontinence 06/04/2009 Mucopurulent chronic bronchitis 06/04/2009 Vitamin B12 deficiency 03/03/2009 Overview (01/13/2021): B12: 1022 (02/19); 281 (2005) Microalbuminuria, 02/1602/20/2009 Overview (01/13/2021): On Accupril 5 History of breast cancer 02/03/2009 Overview (01/13/2021): S/P Chemotherapy x 6 months. Hypertensive heart disease w ith combined systolic and diastolic heart failure and stage 3 chronic kidney disease 02/03/2009 Overview (01/13/2021): CHANGED PER PVQ RESPONSE DOS 9.17.2020 Hypothyroidism 02/03/2009 Overview (01/13/2021): TSH: 08/23; 04/21 (7.54); 05/21; 06/19; 01/16 Hyperlipidemia 02/03/2009 Overview (01/13/2021): LDL: 78 (06/21); 125 (05/21); 136 (09/18); 97 (03/19); 141 (01/16) HDL: 57 (06/21); 48 (05/21); 45 (09/18); 43 (03/19); 45 (01/16) Chronic combined systolic an d diastolic congestive heart failure Dilated bile duct Resolved Problems Problem Noted Date Diagnosed Date Resolved Date Acute on chronic combined sy stolic and diastolic congestive heart failure 12/08/202308/07 Elevated troponin 09/25/2018 12/28/2022 Type 2 diabetes mellitus with hyperglycemia 09/25/2018 04/01/2021 Encounters Date Type Department Care Team Description 05/30/[address] [phone] Terence Rogers MD Chronic pain syndrome; Degenerative cervical spinal stenosis; Lumbar degenerative disc disease 05/21/[address] [address] Terence Rogers MD Parkinson disease ([facility]) 05/18/[address] [address] Terence Rogers MD 05/11/2025 Results Follow-Up [facility] Emergency [facility] [address] [place] [address] Myranda Mayer FNP SPUTUM CULTURE WITH GRAM STAIN 05/10/2025 12:07 AM CDT - 05/10/2025 3:40 AM T Emergency [facility] Emergency Medicine [address] [place] [address] Rakan Montgomery DO Upper respiratory tract infection, unspecified type (Primary Dx); Cough, unspecified type Discharge Disposition: Home or Self Care 05/10/2025 Travel 05/09/[address] [address] Terence Rogers MD Type 2 diabetes mellitus with stage 3 chronic kidney disease, with long-term current use of insulin, unspecified whether stage 3a or 3b CKD ([facility]) 05/02/[address] [address] Terence Rogers MD Chronic pain syndrome; Degenerative cervical spinal stenosis; Lumbar degenerative disc disease 04/23/2025 11:00 AM CDT Procedure visit [address] [address] Terence Rogers MD Primary insomnia (Primary Dx); Constipation, unspecified constipation type 04/17/[address] [phone] SudhaArelis soto GRAVITY PROSPECTING SUPERVISOR Medication Authorization 04/16/2025 8:53 AM CDT - 04/16/2025 11:59 PM CDT Hospital Encounter [facility] [address] [phone] SudhaArelis, GRAVITY PROSPECTING SUPERVISOR Discharge Disposition: Home or Self Care 04/16/2025 8:20 AM CDT Office Visit [address] [phone] Vicenta Mejia, GARTH Cervicalgia (Primary Dx); Oral thrush; Intercostal muscle pain 04/16/2025 External Device Data STL ABSTRACTION Provider, Abstract 04/16/2025 Results Follow-Up [address] [place] [phone] Sudha Crystal Jenae, GRAVITY PROSPECTING SUPERVISOR XR CHEST PA AND LATERAL 2 VW 04/15/[address] [phone] Provider, Abstract 04/15/[address] [phone] Terence Rogers MD Type 2 diabetes mellitus with stage 3 chronic kidney disease, with long-term current use of insulin, unspecified whether stage 3a or 3b CKD ([facility]) 04/11/2025 10:00 AM CDT Office Visit [address] [phone] SudhaArelisn, GRAVITY PROSPECTING SUPERVISOR Pneumonia of right upper lobe due to infectious organism (Primary Dx); Constipation, unspecified constipation type; Chronic pain of left knee 04/09/[address] [phone] Terence Rogers MD Patient Communication 04/08/2025 Results Follow-Up [address] [address] Terence Rogers MD TSH, HEMOGLOBIN A1C, COMPREHENSIVE METABOLIC PANEL, CBC WITH DIFFERENTIAL 04/08/[address] [phone] Terence Rogers MD Ed Follow-up; Patient Communication 04/07/2025 6:13 PM CDT - 04/07/2025 8:59 PM CDT Emergency [facility] Emergency Medicine [address] [phone] Елена London MD Sindlinger, Timothy S, MD Pneumonia of right upper lobe due to infectious organism (Primary Dx); Constipation, unspecified constipation type Discharge Disposition: Home or Self Care 04/07/2025 Travel 04/04/[address] [phone] Terence Rogers MD Chronic pain syndrome; Degenerative cervical spinal stenosis; Lumbar degenerative disc disease 04/02/[address] [phone] Terence Rogers MD Chronic combined systolic and diastolic congestive heart failure (CMS/HCC) 03/28/2025 1:20 PM CDT Office Visit [address] [phone] SudhaArelis soto FNP Transition of care completed (Primary Dx); Skin tear of left hand without complication, initial encounter; Intertrigo; Fluid level behind tympanic membrane of both ears; Buttock pain; COPD with exacerbation (CMS/HCC) 03/28/2025 Telephone [facility] Utilization Management [address] [place] [address] Misa Antoine RN Follow Up (Attempted two numbers to reach patient for hospital follow up call. Both number unsuccessful. ) 03/26/2025 Refill [facility] [address] [address] Terence Rogers MD Chronic combined systolic and diastolic congestive heart failure ([facility]/HCC) 03/24/2025 8:38 PM CDT - 03/26/2025 10:25 AM CDT Hospital Encounter [facility] [address] [place] [address] Jose Jimenez MD Day, Shamuel M, MD COPD with exacerbation ([facility]) Discharge Disposition: Home or Self Care 03/24/2025 Travel 03/22/2025 Telephone [facility] [address] [place] [address] Terence Rogers MD ER Follow Up 03/21/2025 6:17 PM CDT - 03/21/2025 10:15 PM CDT Emergency [facility] Emergency Medicine [address] [place] [address] Елена London MD Starnes, Kenneth Fondren, MD Chest pain, unspecified type (Primary Dx) Discharge Disposition: Home or Self Care 03/21/2025 Travel from Last 3 Months Immunizations Immunization Administration Dates Next Due (PNEUMOVAX 23)(50 YRS UP) PN EUMOCOCCAL POLYSACCHARIDE (PPV23) 0.5 ML, IM 04/10/2008 (PREVNAR 13)(6 WKS UP) PNEUM OCOCCAL CONJUGATE (PCV13) 0.5 ML, IM 07/15/2019 (SHINGRIX)(50 YRS UP) ZOSTER VACCINE RECOMBINANT, 0.5 ML, IM 04/18/2023 (SPIKEVAX) (12 YRS UP PRIMAR Y SERIES) COVID-19 VACCINE - MRNA-1273(PF) 100 MCG/0.5 ML IM SUSP 09/23/2020,08/26/2020 (TENIVAC)(7 YRS UP) TETANUS AND DIPHTHERIA TOXOIDS, ADSORBED (5 LF OF TETANUS TOXOID AND 2 LF OF DIPHTHERIA TOXOID), 0.5ML (PF), IM 10/14/2011 INFLUENZA VACCINE HIGH DOSE QUADRIVALENT 65 YR UP PF IM 05/05/2022,03/26/2021,03/27/2020 INFLUENZA VACCINE HIGH DOSE TRIVALENT SPLIT VIRUS, (65 YR UP), 0.5ML (PF), IM 04/23/2025,06/19/2024 INFLUENZA VACCINE QUADRIVALE NT ADJ 65 YR UP PF IM 04/18/2023 Influenza Seasonal Unspecifi ed Formulation IM 04/28/2016,04/21/1998 [...] asked 11/17/2019 How often do you attend spiritism or jain serv ices? Not asked 11/17/2019 Do you belong to any clubs o r organizations such as spiritism groups, unions, fraternal or athletic groups, or [...] worry about transportation for future doctor visits, belt picker medication, etc.? No 2024 Housing Stability [...] on file Legal Sex Female 1:01 PM POLYSOMNOGRAPH TECH Gender Identity Not on file Sexual Orientation Not on file Last Filed Vital Signs Vital Sign Reading Time Taken Comments Blood Pressure 157/75 05/10/2025 3:00 AM CDT Pulse 86 05/10/2025 3:00 AM CDT Temperature 36.1 C (96.9 F) 05/10/2025 12:11 AM CDT Respiratory Rate 19 05/10/2025 3:00 AM CDT Oxygen Saturation 94% 05/10/2025 3:00 AM CDT Inhaled Oxygen Concentration - - Weight 73.5 kg (162 lb) 05/10/2025 12:11 AM CDT Height 162.6 cm (5' 4 ) 05/10/2025 12:11 AM CDT Body Mass Index 27.81 05/10/2025 12:11 AM CDT Plan of Treatment Upcoming Encounters Date Type Department Care Team (Late st Contact Info) Description 06/24/2025 10:00 AM POLYSOMNOGRAPH TECH Office Visit [facility] [address] [phone] Terence Rogers MD [address] [address] Health Maintenance Due Date Last Done Comments DTAP/TDAP/TD VACCINES (1 - Tdap) 10/15/2011 10/14/19 12 RSV VACCINE (60+ or ) (1 - 1-dose 75+ series) 2014 OSTEOPOROSIS SCREENING 09/27/2016 09/28/2011, 2011 ZOSTER VACCINE (2 of 2) 06/13/2023 04/18/2023 [place] Preventative Visit/Annual Wellness Visit 07/11/2024 12/15/2023, 11/26/2021, 03/26/2021 COVID-19 Vaccine (2024-2 6 season) 2025 09/23/2020, 08/26/2020 DIABETES MICROALBUMIN ANNUAL SCREEN 08/06/2025 08/06/2024, 08/29/2023, 07/13/2022, Additional history exists LDL CHOLESTEROL ANNUAL 08/06/2025 , 08/29/2023, 01/01/2021, Additional history exists DIABETES ANNUAL FOOT EXAM 09/07/20252024, 07/15/2023, 12/21/2021, Additional history exists DIABETES HBA1C Q 6 MONTHS 09/10/20252024, 08/06/2024, 11/06/2023, Additional history exists DIABETES ANNUAL RETINAL EXAM 11/13/202512/2024, 02/08/2023, 06/15/2021, Additional history exists DIABETES: A1C (Auto Order) 03/13/202603/13, 08/06/2024, 11/06/2023, Additional history exists PNEUMOCOCCAL VACCINE 50+ YEARS Completed 0 07/15/2019, 04/15/2016, 04/10/2008 [facility] uACR (Auto Order) Completed 09/07/2024 , 08/06/2024, 08/29/2023, Additional history exists INFLUENZA VACCINE Completed 04/23/2025, , 04/18/2023, Additional history exists KHE eGFR (Auto Order) Completed 05/10/2025 , 04/07/2025, 03/25/2025, Additional history exists Procedures Procedure Name Priority Date/Time Associated Diagnosis Comments TROPONIN 2 HR, 5TH GEN Timed Study 05/10/2025 2:42 AM CDT SPUTUM CULTURE WITH GRAM STAIN Stat 05/10/2025 12:47 AM CDT LACTIC ACID Stat 05/10/2025 12:40 AM CDT TROPONIN BASELINE, 5TH GEN Stat 05/10/2025 12:40 AM CDT BRAIN NATRIURETIC PEPTIDE, BNP OR PROBNP Stat 05/10/2025 12:40 AM CDT COMPREHENSIVE METABOLIC PANEL Stat 05/10/2025 12:40 AM CDT CBC WITH DIFFERENTIAL Stat 05/10/2025 12:40 AM CDT XR CHEST PA OR AP 1 VW Stat 05/10/2025 12:28 AM CDT XR CHEST PA AND LATERAL 2 VW Routine 04/16/2025 9:16 AM CDT Pneumonia of right upper lobe due to infectious organism MAGNESIUM LEVEL Stat 04/07/2025 7:22 PM CDT LACTIC ACID Stat 04/07/2025 7:22 PM CDT C-REACTIVE PROTEIN Stat 04/07/2025 7: 22 PM CDT BRAIN NATRIURETIC PEPTIDE, BNP OR PROBNP Stat 04/07/2025 7:22 PM CDT COMPREHENSIVE METABOLIC PANEL Stat 04/07/2025 7:22 PM CDT CBC WITH DIFFERENTIAL Stat 04/07/2025 7:[address] CHEST WO CONTRAST Stat 04/07/2025 7:12 PM CDT TELEMETRY REPORT 03/27/2025 7:13 AM CDT POC GLUCOSE Routine 03/26/2025 6:59 AM CDT POC GLUCOSE Routine 03/25/2025 10:24 PM CDT POC GLUCOSE Routine 03/25/2025 9:17 PM CDT POC GLUCOSE Routine 03/25/2025 5:14 PM CDT SPUTUM CULTURE WITH GRAM STAIN Routine 03/25/2025 3:35 PM CDT PNEUMONIA PATHOGEN PCR PANEL Routine 03/25/2025 3:35 PM CDT POC GLUCOSE Routine 03/25/2025 12:11 PM CDT POC GLUCOSE Routine 03/25/2025 7:36 AM CDT DIFFERENTIAL, MANUAL Routine 03/25/2025 6:05 AM CDT C-REACTIVE PROTEIN Routine 03/25/2025 6: 05 AM CDT BASIC METABOLIC PANEL Routine 03/25/2025 6:05 AM CDT CBC WITH DIFFERENTIAL Routine 03/25/2025 6:05 AM CDT BRAIN NATRIURETIC PEPTIDE, BNP OR PROBNP Routine 03/25/2025 6:05 AM CDT BLOOD CULTURE Stat 03/24/2025 10:05 PM CDT BLOOD CULTURE Stat 03/24/2025 10:05 PM CDT BLOOD CULTURE Stat 03/24/2025 10:00 PM CDT BLOOD CULTURE Stat 03/24/2025 10:00 PM CDT XR CHEST PA OR AP 1 VW Stat 03/24/2025 9:03 PM CDT COVID-19 ANTIGEN Stat 03/24/2025 8:54 PM CDT INFLUENZA VIRUS A AND B, ANTIGEN DETECTION Stat 03/24/2025 8:54 PM CDT LACTIC ACID Stat 03/24/2025 8:52 PM CDT COMPREHENSIVE METABOLIC PANEL Stat 03/24/2025 8:52 PM CDT CBC WITH DIFFERENTIAL Stat 03/24/2025 8:52 PM CDT XR CHEST PA OR AP 1 VW Stat 03/21/2025 8:52 PM CDT URINALYSIS MICROSCOPY ONLY Stat 03/21/2025 8:26 PM CDT DRUG SCREEN, URINE Stat 03/21/2025 8: 26 PM CDT URINALYSIS W/REFLEX MICROSCOPIC Stat 03/21/2025 8:26 PM CDT TROPONIN 2 HR, 5TH GEN Timed Study 03/21/2025 8:25 PM CDT TROPONIN BASELINE, 5TH GEN Stat 03/21/2025 6:38 PM CDT MAGNESIUM LEVEL Stat 03/21/2025 6:38 PM CDT C-REACTIVE PROTEIN Stat 03/21/2025 6: 38 PM CDT LACTIC ACID Stat 03/21/2025 6:38 PM CDT TSH Stat 03/21/2025 6:38 PM CDT LIPASE Stat 03/21/2025 6:38 PM CDT BRAIN NATRIURETIC PEPTIDE, BNP OR PROBNP Stat 03/21/2025 6:38 PM CDT COMPREHENSIVE METABOLIC PANEL Stat 03/21/2025 6:38 PM CDT SEDIMENTATION RATE Stat 03/21/2025 6: 38 PM CDT D-DIMER Stat 03/21/2025 6:38 PM CDT PTT Stat 03/21/2025 6:38 PM CDT PROTIME-INR Stat 03/21/2025 6:38 PM CDT CBC WITH DIFFERENTIAL Stat 03/21/2025 6:38 PM CDT HEMOGLOBIN A1C Routine 03/13/2025 3:26 PM CDT Type 2 diabetes mellitus with stage 3a chronic kidney disease, with long-term current use of insulin ([facility]) HM DIABETES EYE EXAM Routine 11/13/2024 10:00 AM CDT LIPID PANEL Routine 08/06/2024 10:36 AM POLYSOMNOGRAPH TECH Type 2 diabetes mellitus with stage 3a chronic kidney disease, with long-term current use of insulin ([facility]) MICROALBUMIN/CREATINI NE RATIO, RANDOM UR Routine 08/06/2024 10:30 AM POLYSOMNOGRAPH TECH Type 2 diabetes 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 TROPONIN T, 2 HR 5TH GEN 57(H) <=10 ng/L 05/10/2025 3:03 AM CDT [facility] DELTA 2HR TROPONIN T -3 See Interp. 05/10/2025 3:03 AM CDT [facility] Blood Venipuncture / Unknown 05/10/2025 2:42 AM CDT 05/10/2025 2:46 AM CDT Narrative [facility] - 05/10/2025 3:03 AM CDT Troponin elevated. Delta not changing. us Rakan Montgomery DO CHEMISTRY ORDERABLES Final Resul t [facility] CLIA # [id number] [address] [place] [id number] * SPUTUM CULTURE WITH GRAM STAIN (05/10/2025 12:47 AM CDT) Only the most recent of2 resultswithin the time period is included. CULTURE No pathogens isolated. Normal respiratory jose carlos present. 05/12/2025 7:34 AM [facility] GRAM STAIN Smear contains </=10 squamous epithelial cells per low power field 05/12/2025 7:34 AM [facility] GRAM STAIN >25 PMN WBC/LPF 7:34 AM [facility] GRAM STAIN 4+ (Heavy) Gram positive cocci 05/12/2025 7:34 AM [facility] GRAM STAIN 4+ (Heavy) Gram negative cocci 05/12/2025 7:34 AM [facility] Sputum COUGHED SPUTUM SPECIMEN / Unknown Collection / Unknown 05/10/2025 12:47 AM CDT 05/10/2025 12:57 AM CDT Rakan Montgomery DO MICROBIOLOGY - GENERAL ORDERABLE S Final Result [facility] CLIA # [id number] Critical access hospital[address] [address] * (ABNORMAL) TROPONIN BASELINE, 5TH GEN (05/10/2025 12:40 AM CDT) Only the most recent of2 resultswithin the time period is included. TROPONIN T, BASELINE 5TH GEN 60(H) <=10 ng/L 05/10/2025 1:07 AM CDT [facility] Blood Venipuncture / Unknown 05/10/2025 12:40 AM CDT 05/10/2025 12:48 AM CDT Narrative [facility] - 05/10/2025 1:07 AM CDT Troponin elevated. us Rakan Montgomery DO CHEMISTRY ORDERABLES Final Resul t Performing Organization Address City/[facility]/ZIP Co de Phone Number [facility] CLIA # [id number] [address] [place] [phone] * LACTIC ACID (05/10/2025 12:40 AM CDT) Only the most recent of4 resultswithin the time period is included. Pathologist [facility] LACTIC ACID 0.5 <=2.0 mmol/L 05/10/2025 1:20 AM [facility] Blood BLOOD SPECIMEN / Unknown Venipuncture / Unknown 05/10/2025 12:40 AM CDT 05/10/2025 1:05 AM CDT Rakan Montgomery DO CHEMISTRY ORDERABLES Final Resul t Performing Organization Address [facility] Co de Phone Number [facility] CLIA # [id number] [address] [place] [phone] * (ABNORMAL) CBC WITH DIFFERENTIAL (05/10/2025 12:40 AM CDT) Only the most recent of5 resultswithin the time period is included. Pathologist [facility] WBC 8.8 4.0 - 10.0 K/uL 05/10/2025 1:06 AM [facility] RBC 3.33(L) 3.93 - 5.22 M/uL 05/10/2025 1:06 AM [facility] HEMOGLOBIN 9.9(L) 11.2 - 15.7 g/dL 05/10/2025 1:06 AM [facility] HEMATOCRIT 31.1(L) 34.1 - 44.9 % 05/10/2025 1:06 AM [facility] MCV 93.4 79.4 - 94.8 fL 05/10/2025 1:06 AM [facility] MCH 29.7 25.6 - 32.2 pg 05/10/2025 1:06 AM [facility] MCHC 31.8(L) 32.2 - 35.5 g/dL 05/10/2025 1:06 AM [facility] RDW 15.3(H) 11.0 - 14.5 % 05/10/2025 1:06 AM [facility] RDW-STDEV 52.6 36.9 - 56.9 fL 05/10/2025 1:06 AM [facility] PLATELETS 119(L) 163 - 337 K/uL 05/10/2025 1:06 AM [facility] MPV 11.6 10.0 - 14.8 fL 05/10/2025 1:06 AM [facility] NEUTROPHILS 82(H) 34 - 71 % 05/10/2025 1:06 AM [facility] LYMPHOCYTES 9(L) 19 - 52 % 05/10/2025 1:06 AM [facility] MONOCYTES 7 5 - 13 % 05/10/2025 1:06 AM [facility] EOSINOPHILS 1 1 - 6 % 05/10/2025 1:06 AM [facility] BASOPHILS 0 0 - 1 % 05/10/2025 1:06 AM [facility] IMMATURE GRANULOCYTES 1 % 05/10/2025 1:06 AM [facility] NEUTROPHIL ABSOLUTE 7.20(H) 1.56 - 6.13 K/uL 05/10/2025 1:06 AM [facility] LYMPHOCYTE ABSOLUTE 0.79(L) 1.20 - 3.40 K/uL 05/10/2025 1:06 AM [facility] MONOCYTE ABSOLUTE 0.65(H) 0.24 - 0.36 K/uL 05/10/2025 1:06 AM [facility] EOSINOPHIL ABSOLUTE 0.07 0.04 - 0.36 K/uL 05/10/2025 1:06 AM [facility] BASOPHILS ABSOLUTE 0.01 0.01 - 0.08 K/uL 05/10/2025 1:06 AM [facility] IMMATURE GRANULOCYTES ABSOLUTE 0.04 K/uL 05/10/2025 1:06 AM CDT [facility] Blood Venipuncture / Unknown 05/10/2025 12:40 AM CDT 05/10/2025 12:48 AM CDT us Rakan Montgomery DO HEMATOLOGY ORDERABLES Final Resu lt Performing Organization Address [facility] Co de Phone Number [facility] CLIA # [id number] [address] [place] [phone] * (ABNORMAL) BRAIN NATRIURETIC PEPTIDE, BNP OR PROBNP (05/10/2025 12:40 AM CDT) Only the most recent of4 resultswithin the time period is included. PROBNP, N TERMINAL 4,707(H) 0 - 450 pg/mL 05/10/2025 1:07 AM CDT [facility] Comment: INTERPRETIVE COMMENT based on diagnosis: Diagnostic NT pro-BNP cutoffs for Heart Failure in the absence of renal failure is suggested for the following ranges <75 years: <125 pg/mL >=75 years: <450 pg/mL Exclusionary rule out cut-point for Acute Decompensated Heart Failure(ADHF) All ages: <300 pg/mL Diagnostic NT pro-BNP cutoffs for Acute Decompensated Heart Failure(ADHF) in the absence of renal failure is suggested for the following ages <50 years: > 450 pg/mL 50-75 years: > 900 pg/mL >75 years: >1800 pg/mL Blood Venipuncture / Unknown 05/10/2025 12:40 AM CDT 05/10/2025 12:48 AM CDT us Rakan Montgomery DO CHEMISTRY ORDERABLES Final Resul t Performing Organization Address [facility]/ZIP Co de Phone Number [facility] CLIA # [id number] [address] [place] [phone] * (ABNORMAL) COMPREHENSIVE METABOLIC PANEL (05/10/2025 12:40 AM CDT) Only the most recent of4 resultswithin the time period is included. SODIUM 142 136 - 145 mmol/L 05/10/2025 1:07 AM [facility] POTASSIUM 4.1 3.5 - 5.1 mmol/L 05/10/2025 1:07 AM [facility] CHLORIDE 108(H) 98 - 107 mmol/L 05/10/2025 1:07 AM [facility] CO2 26 22 - 29 mmol/L 05/10/2025 1:07 AM [facility] CALCIUM 9.0 8.8 - 10.2 mg/dL 05/10/2025 1:07 AM [facility] BUN 32(H) 8 - 23 mg/dL 05/10/2025 1:07 AM [facility] CREATININE 1.08(H) 0.51 - 0.95 mg/dL 05/10/2025 1:07 AM [facility] Comment:The GFR result is no t clinically significant on patients <18 or >70 years of age. GLUCOSE 101(H) 74 - 99 mg/dL 05/10/2025 1:07 AM [facility] TOTAL PROTEIN 6.3(L) 6.6 - 8.7 g/dL 05/10/2025 1:07 AM [facility] ALBUMIN 3.5 3.5 - 5.2 g/dL 05/10/2025 1:07 AM [facility] BILIRUBIN TOTAL 0.5 0.0 - 1.2 mg/dL 05/10/2025 1:07 AM [facility] ALKALINE PHOSPHATASE 184(H) 35 - 104 U/L 05/10/2025 1:07 AM [facility] AST 34 0 - 35 U/L 05/10/2025 1:07 AM [facility] ALT 8 0 - 35 U/L 05/10/2025 1:07 AM [facility] GFR 50 mL/min/1.7 3 sq meter 05/10/2025 1:07 AM [facility] Comment:eGFR calculated with 2020 CKD-EPI equation. Vegetarian diet, extremely high or low muscle mass, and may affect results. Cystatin C with Glomerular Filtration Rate is a suitable alternative for these patients. ANION GAP 8 5 - 20 mmol/L 05/10/2025 1:07 AM CDT [facility] Blood Venipuncture / Unknown 05/10/2025 12:40 AM CDT 05/10/2025 12:48 AM CDT us Rakan Montgomery DO CHEMISTRY ORDERABLES Final Resul t [facility] CLIA # [id number] [address] [place] [id number] * XR CHEST PA OR AP 1 VW (05/10/2025 12:28 AM CDT) Only the most recent of3 resultswithin the time period is included. Anatomical Region Laterality Modality Chest Computed Radiogr aphy 05/10/2025 12:2 9 AM CDT Impressions 05/10/2025 12:59 AM CDT IMPRESSION: No acute cardiopulmonary abnormality identified. MACRO: None Narrative 05/10/2025 12:59 AM CDT EXAMINATION: XR CHEST PA OR AP 1 VW CLINICAL HISTORY: ASSOCIATED DIAGNOSIS: Chest Pain ORDERING PROVIDER: RAKAN MONTGOMERY TECHNOLOGISTS NOTE: COMPARISON: Chest radiograph 04/16/2025 FINDINGS: Lines, tubes, and devices: Unchanged left chest wall pacemaker with intact single lead terminating over the right ventricle. Lungs and pleura: No focal pulmonary consolidation, effusion or pneumothorax. Left midlung scarring. Chronically coarsened interstitial markings. Cardiomediastinal silhouette: Enlarged cardiomediastinal silhouette. Dense mitral calcification. Musculoskeletal: Unremarkable. Procedure Note Hilton Ram MD - 05/10/2025 EXAMINATION: XR CHEST PA OR AP 1 VW CLINICAL HISTORY: ASSOCIATED DIAGNOSIS: Chest Pain ORDERING PROVIDER: RAKAN MONTGOMERY TECHNOLOGISTS NOTE: COMPARISON: Chest radiograph 04/16/2025 FINDINGS: Lines, tubes, and devices: Unchanged left chest wall pacemaker with intact single lead terminating over the right ventricle. Lungs and pleura: No focal pulmonary consolidation, effusion or pneumothorax. Left midlung scarring. Chronically coarsened interstitial markings. Cardiomediastinal silhouette: Enlarged cardiomediastinal silhouette. Dense mitral calcification. Musculoskeletal: Unremarkable. IMPRESSION: No acute cardiopulmonary abnormality identified. MACRO: None us Rakan Montgomery DO DIAGNOSTIC IMAGING ORDERABLES Fi nal Result * XR CHEST PA AND LATERAL 2 VW (04/16/2025 9:16 AM CDT) Anatomical Region Laterality Modality Chest Computed Radiogr aphy 04/16/2025 9:17 AM CDT Impressions 04/16/2025 9:37 AM CDT Impression: The cardiac silhouette appears enlarged. No airspace disease is seen in the right upper lobe to correspond with groundglass nodule seen on prior CT. Follow-up chest CT may be warranted to document complete resolution. There is no pneumothorax. No pleural effusion. Left chest single lead pacemaker. Narrative 04/16/2025 9:37 AM CDT Exam: XR CHEST PA AND LATERAL 2 VW Date/Time of Exam: 04/16/2025 9:16 AM Reason For Exam: See Diagnosis. Diagnosis: Pneumonia of right upper lobe due to infectious organism. Comparison: March 24, 2025. April 07, 2025 Procedure Note Blaze Clemente MD - 04/16/2025 Exam: XR CHEST PA AND LATERAL 2 VW Date/Time of Exam: 04/16/2025 9:16 AM Reason For Exam: See Diagnosis. Diagnosis: Pneumonia of right upper lobe due to infectious organism. Comparison: March 24, 2025. April 07, 2025 Impression: The cardiac silhouette appears enlarged. No airspace disease is seen in the right upper lobe to correspond with groundglass nodule seen on prior CT. Follow-up chest CT may be warranted to document complete resolution. There is no pneumothorax. No pleural effusion. Left chest single lead pacemaker. Arelis Haley [employer]RAV[employer]OSPECTING SUPERVISOR DIAGNOSTIC IMAGING ORDER DAREK Final Result * (ABNORMAL) C-REACTIVE PROTEIN (04/07/2025 7:22 PM CDT) Only the most recent of3 resultswithin the time period is included. CRP 19.2(H) <5.0 mg/L 04/07/2025 8:05 PM CDT [facility] Blood Collection / Unknown 04/07/2025 7:22 PM CDT 04/07/2025 7:42 PM CDT Елена London MD CHEMISTRY ORDERABLES Final Resu lt Performing Organization Address [facility] Co de Phone Number [facility] CLIA # [id number] [address] [place] [phone] * MAGNESIUM LEVEL (04/07/2025 7:22 PM CDT) Only the most recent of2 resultswithin the time period is included. MAGNESIUM 2.2 1.6 - 2.4 mg/dL 04/07/2025 8:05 PM CDT [facility] Blood Collection / Unknown 04/07/2025 7:22 PM CDT 04/07/2025 7:42 PM CDT us Елена London MD CHEMISTRY ORDERABLES Final Resu lt Performing Organization Address [facility] Co de Phone Number [facility] CLIA # [id number] [address] [place] [phone] * CT CHEST WO CONTRAST (04/07/2025 7:12 PM CDT) Anatomical Region Laterality Modality Chest Computed Tomogra phy 04/07/2025 6:50 PM CDT Impressions 04/07/2025 7:28 PM CDT IMPRESSION: Subtle groundglass opacity in the right upper lobe measuring 1.7 cm. Finding may represent an inflammatory process or infection. No large consolidation. Similar appearance of the lingula segment bibasilar atelectasis. Unchanged appearance of the prominent mediastinal lymphadenopathy which may represent a reactive or inflammatory process. Narrative 04/07/2025 7:28 PM CDT EXAM: CT CHEST WO CONTRAST DATE/TIME OF EXAM: 04/07/2025 7:12 PM REASON FOR EXAM: Pneumonia, complication suspected, xray done DIAGNOSIS: See Reason for Exam COMPARISON: CT of the chest without contrast 05/29/2023 chest x-ray 03/30/2025 TECHNIQUE: Multiple contiguous axial CT images were obtained of the chest extending from the lower neck through the upper abdomen. Supplemental 2-D reformatted images were created in the sagittal and coronal plane and reviewed as needed. FINDINGS: Thoracic inlet and lower neck: No acute findings. Mediastinum: Multiple enlarged mediastinal lymph nodes, example precarinal lymph node measuring 2.6 x 2.1 cm. Additional bilateral hilar lymphadenopathy. Findings are unchanged compared to prior imaging Heart/Vessels: Moderate multichamber cardiomegaly. No pericardial effusion. Severe three-vessel coronary atherosclerosis. Severe calcification of the mitral valve. Left anterior chest wall cardiac pacemaker with leads in the right atrium and right ventricle. Lungs: Subtle groundglass opacity in the upper lobe measuring 1.7 x 1.2 cm. Atelectasis of the left upper lobe. Calcified granuloma of the right middle lobe. Pleura: No pneumothorax or effusion. Upper Abdomen: No acute abnormality. Bones: No suspicious bony lesions. Additional comments: None. Procedure Note Essence Hanks MD - 04/07/2025 EXAM: CT CHEST WO CONTRAST DATE/TIME OF EXAM: 04/07/2025 7:12 PM REASON FOR EXAM: Pneumonia, complication suspected, xray done DIAGNOSIS: See Reason for Exam COMPARISON: CT of the chest without contrast 05/29/2023 chest x-ray 03/30/2025 TECHNIQUE: Multiple contiguous axial CT images were obtained of the chest extending from the lower neck through the upper abdomen. Supplemental 2-D reformatted images were created in the sagittal and coronal plane and reviewed as needed. FINDINGS: Thoracic inlet and lower neck: No acute findings. Mediastinum: Multiple enlarged mediastinal lymph nodes, example precarinal lymph node measuring 2.6 x 2.1 cm. Additional bilateral hilar lymphadenopathy. Findings are unchanged compared to prior imaging Heart/Vessels: Moderate multichamber cardiomegaly. No pericardial effusion. Severe three-vessel coronary atherosclerosis. Severe calcification of the mitral valve. Left anterior chest wall cardiac pacemaker with leads in the right atrium and right ventricle. Lungs: Subtle groundglass opacity in the upper lobe measuring 1.7 x 1.2 cm. Atelectasis of the left upper lobe. Calcified granuloma of the right middle lobe. Pleura: No pneumothorax or effusion. Upper Abdomen: No acute abnormality. Bones: No suspicious bony lesions. Additional comments: None. IMPRESSION: Subtle groundglass opacity in the right upper lobe measuring 1.7 cm. Finding may represent an inflammatory process or infection. No large consolidation. Similar appearance of the lingula segment bibasilar atelectasis. Unchanged appearance of the prominent mediastinal lymphadenopathy which may represent a reactive or inflammatory process. us Елена London MD CT ORDERABLES Final Result * TELEMETRY REPORT (03/27/2025 7:13 AM CDT) Provider Scanning ECG ORDERABLES Final Result * POC GLUCOSE (03/26/2025 6:59 AM CDT) Only the most recent of6 resultswithin the time period is included. [facility] GLUCOSE POC 86 74 - 99 mg/dL 03/26/2025 6:59 AM CDT [facility] SPECIMEN SOURCE, GLUCOSE POC Whole Blood 03/26/2025 6:59 AM CDT [facility] Blood, whole 03/26/2025 6:59 AM CDT 03/26/2025 7:15 AM CDT us Елена London MD POINT OF CARE TESTING Final Res [id number] [address] [place] [id number] * PNEUMONIA PATHOGEN PCR PANEL (03/25/2025 3:35 PM CDT) [facility] Pneumonia Pathogen PCR Panel NOT DETECTED No nucleic acids detected. 03/26/2025 9:52 PM CDT [facility] [employer] [facility] Sputum COUGHED SPUTUM SPECIMEN / Unknown Collection / Unknown 03/25/2025 3:35 PM CDT 03/25/2025 3:57 PM CDT Narrative [facility] - 03/26/2025 9:52 PM CDT NOTE: Per the business reporting developer, this current lot of reagent may be insensitive for the full detection of adenoviruses. If adenovirus is within the differential diagnosis, the specimen may be submitted to a reference laboratory for further testing. If desired, order [id number] Lab Test, stating Adenovirus by PCR testing in the ordering comment and notify the Microbiology lab. A negative result does not exclude the possibility of infection. A semi-quantitative (copies/mL) result is provided for bacteria. This panel does not distinguish between nucleic acid from live or bacteria or virus. Culture is needed for recovery of bacterial isolates and antimicrobial susceptibility testing. The [employer] Pneumonia Pathogen PCR Panel is a multiplexed nucleic acid detection test for 33 targets of bacteria, viruses, and resistance markers in respiratory specimens that cause pneumonia. Bacteria: Acinetobacter calcoaceticus-baumannii complex Enterobacter cloacae complex Escherichia coli Haemophilus influenzae Klebsiella aerogenes Klebsiella oxytoca Klebsiella pneumoniae group Moraxella catarrhalis Proteus spp. Pseudomonas aeruginosa Serratia marcescens Staphylococcus aureus Streptococcus agalactiae Streptococcus pneumoniae Streptococcus pyogenes Atypical Bacteria: Chlamydia pneumoniae Legionella pneumophila Mycoplasma pneumoniae Viruses: Adenovirus Coronavirus (229E, OC43, HKU1, NL63) Human Metapneumovirus Human Rhinovirus/Enterovirus Influenza A Influenza B Parainfluenza Virus Respiratory Syncytial Virus Antimicrobial Resistance Genes: CTX-M IMP KPC NDM OXA-48-like VIM mecA/C and MREJ Homer Garza MD MICROBIOLOGY - GENERAL ORDERABLE S Final Result [facility] # [id number] [address] [place] [id number] * MANUAL DIFFERENTIAL (03/25/2025 6:05 AM CDT) PLATELET EST. Consistent w Count 03/25/2025 6:53 AM CDT [facility] RBC MORPHOLOGY Normal 03/25/2025 6:53 AM CDT [facility] Blood Venipuncture / Unknown 03/25/2025 6:05 AM CDT 03/25/2025 6:27 AM CDT Homer Garza MD HEMATOLOGY ORDERABLES COM Final Result [facility] CLIA # [id number] [address] [place] [phone] * (ABNORMAL) BASIC METABOLIC PANEL (03/25/2025 6:05 AM CDT) SODIUM 138 136 - 145 mmol/L 03/25/2025 6:55 AM [facility] POTASSIUM 4.0 3.5 - 5.1 mmol/L 03/25/2025 6:55 AM [facility] CHLORIDE 101 98 - 107 mmol/L 03/25/2025 6:55 AM [facility] CO2 27 22 - 29 mmol/L 03/25/2025 6:55 AM [facility] CALCIUM 9.0 8.8 - 10.2 mg/dL 03/25/2025 6:55 AM [facility] BUN 28(H) 8 - 23 mg/dL 03/25/2025 6:55 AM [facility] CREATININE 1.28(H) 0.51 - 0.95 mg/dL 03/25/2025 6:55 AM [facility] Comment:The GFR result is no t clinically significant on patients <18 or >70 years of age. GLUCOSE 105(H) 74 - 99 mg/dL 03/25/2025 6:55 AM [facility] GFR 41 mL/min/1.7 3 sq meter 03/25/2025 6:55 AM [facility] Comment:eGFR calculated with 2020 CKD-EPI equation. Vegetarian diet, extremely high or low muscle mass, and may affect results. Cystatin C with Glomerular Filtration Rate is a suitable alternative for these patients. ANION GAP 10 5 - 20 mmol/L 03/25/2025 6:55 AM [facility] Blood Venipuncture / Unknown 03/25/2025 6:05 AM CDT 03/25/2025 6:27 AM CDT Homer Garza MD CHEMISTRY ORDERABLES Final Resul t [facility] CLIA # [id number] [address] [place] [phone] * BLOOD CULTURE (03/24/2025 10:05 PM CDT) Only the most recent of2 resultswithin the time period is included. Pathologist [facility] BLOOD CULTURE No growth 03/30/2025 6:00 PM CDT [facility] Blood (Peripheral) Venipuncture / Unknown 03/24/2025 10:05 PM CDT 03/24/2025 10:13 PM CDT Jose Jimenez MD MICROBIOLOGY - GENERAL O RDERABLES Final Result Performing Organization Address City/[facility]/ZIP Co de Phone Number [facility] CLIA # [id number] Critical access hospital[address] [address] * COVID-19 ANTIGEN (03/24/2025 8:54 PM CDT) [facility] COVID-19 ANTIGEN Presumptive Negative Presumptive Negative 03/24/2025 9:22 PM CDT [facility] Upper Respiratory ANTERIOR NARES SWAB / Unknown Collection / Unknown 03/24/2025 8:54 PM CDT 03/24/2025 9:01 PM CDT Narrative [facility] - 03/24/2025 9:22 PM CDT Amber SARS antigen test has been authorized by FDA under an emergency use authorization (EUA) and has been authorized only for the detection of proteins from SARS-CoV-2 and influenza, not for any other viruses or pathogens. Amber SARS Antigen MOO is intended for the simultaneous qualitative detection and differentiation of nucleocapsid protein antigen from SARS-CoV-2 directly from nasopharyngeal ([employer] SUPERVISOR) and nasal (NS) swab specimens collected from individuals who are suspected of respiratory viral infection consistent with COVID-19 by their healthcare provider within the first five (5) days of symptom onset when tested at least twice over three days with at least 48 hours between tests, or from individuals without symptoms or other epidemiological reasons to suspect COVID-19 when tested at least three times over five days with at least 48 hours between tests. This test is only authorized for the duration of the declaration that circumstances exist justifying the authorization of emergency use of in vitro diagnostics for detection and/or diagnosis of the virus that causes COVID-19 under Section 564(b)(1) of the Act, 21 U.S.C. 360bbb-3(b)(1), unless the authorization is terminated or revoked sooner. Negative results should be treated as presumptive and confirmed with a molecular assay, if necessary for patient care. Serial testing should be performed in individuals with negative results at least twice over three days (with 48 hours between tests) for symptomatic individuals or from individuals without symptoms or other epidemiological reasons to suspect COVID-19 when tested at least three times over five days with at least 48 hours between tests. Jose Jimenez MD MICROBIOLOGY - GENERAL O BARBARA Final Result [facility] CLIA # [id number] [address] [place] [phone] * INFLUENZA VIRUS A AND B, ANTIGEN DETECTION (03/24/2025 8:54 PM CDT) INFLUENZA A AG NOT DETECTED Not Detected 03/24/2025 9:22 PM CDT [facility] INFLUENZA B AG NOT DETECTED Not Detected 03/24/2025 9:22 PM CDT [facility] Upper Respiratory ENTIRE NASOPHARYNX / Unknown Collection / Unknown 03/24/2025 8:54 PM CDT 03/24/2025 9:01 PM CDT Former[facility] - 03/24/2025 9:22 PM CDT Negative results do not rule out infection. If clinically indicated, consider PCR testing which is more sensitive than antigen testing. If PCR testing is desired, consult with your local laboratory as sample recollection may be required. Jose Jimenez MD MICROBIOLOGY - GENERAL O RDERABLES Final Result [facility] CLIA # [id number] [address] [place] [address] * URINALYSIS MICROSCOPY ONLY (03/21/2025 8:26 PM CDT) WBC UA 0-2 0 - 2 /hpf 03/21/2025 9:00 PM CDT [facility] RBC UA 0-2 0 - 2 /hpf 03/21/2025 9:00 PM CDT [facility] BACTERIA UA Negative Negative /hpf 03/21/2025 9:00 PM CDT [facility] EPITHELIAL CELLS, URINE 0-5 0 - 5 /hpf 03/21/2025 9:00 PM CDT [facility] Urine URINE SPECIMEN OBTAINED BY CLEAN CATCH PROCEDURE / Unknown Collection / Unknown 03/21/2025 8:26 PM CDT 03/21/2025 8:43 PM CDT Елена London MD URINE ORDERABLES Final Result [facility] CLIA # [id number] [address] [place] [id number] * DRUG SCREEN, URINE (03/21/2025 8:26 PM CDT) CANNABINOIDS QUAL, URINE Negative Negative 03/21/2025 9:01 PM CDT [facility] PCP QUAL, URINE Negative Negative 9:01 PM CDT [facility] COCAINE QUAL URINE Negative Negative 2024 9:01 PM CDT [facility] METHAMPHETAMINE QUAL, URINE Negative Negative 03/21/2025 9:01 PM CDT [facility] OPIATE QUAL, URINE Negative Negative 2024 9:01 PM CDT [facility] AMPHETAMINE QUAL, URINE Negative Negative 03/21/2025 9:01 PM CDT [facility] BENZODIAZEPINE QUAL, URINE Negative Negative 03/21/2025 9:01 PM CDT [facility] TRICYCLICS QUAL, URINE Negative Negative 03/21/2025 9:01 PM CDT [facility] METHADONE QUAL, URINE Negative Negative 03/21/2025 9:01 PM CDT [facility] BARBITURATE QUAL, URINE Negative Negative 03/21/2025 9:01 PM CDT [facility] OXYCODONE QUAL, URINE Negative Negative 03/21/2025 9:01 PM T [facility] Urine URINE SPECIMEN OBTAINED BY CLEAN CATCH PROCEDURE / Unknown Collection / Unknown 03/21/2025 8:26 PM CDT 03/21/2025 8:43 PM CDT [facility] - 03/21/2025 9:01 PM CDT This test is a qualitative screen. The presumptive positive results should not be used for legal purposes. If confirmation of results is desired, the lab must be contacted without delay. Drug Screening Threshold Amphetamines 500 ng/mL Barbiturates 200 ng/mL Benzodiazepines 150 ng/mL Cocaine Metabolites 150 ng/mL Methamphetamine 500 ng/mL Methadone 200 ng/mL Opiates 100 ng/mL Oxycodone 100 ng/mL Phencyclidine 25 ng/mL THC Cannabinoids 50 ng/mL Tricyclic Antidepressants 300 ng/mL Елена London MD URINE ORDERABLES [id number] [address] [place] [address] * (ABNORMAL) URINALYSIS WITH REFLEX MICROSCOPIC (03/21/2025 8:26 PM CDT) COLOR UA Yellow Pale to Dark Yellow 03/21/2025 9:00 PM [facility] CLARITY UA Clear Clear 03/21/2025 9:00 PM [facility] SPECIFIC GRAVITY UA 1.020 1.003 - 1.035 03/21/2025 9:00 PM [facility] PH UA 6.5 5.0 - 8.0 03/21/2025 9:00 PM T [facility] LEUKOCYTE ESTERASE UA Negative Negative 03/21/2025 9:00 PM CDT [facility] NITRITE UA Negative Negative 03/21/2025 9:00 PM CDT [facility] PROTEIN UA 3+(A) Negative 03/21/2025 9:00 PM CDT [facility] GLUCOSE UA Negative Negative 03/21/2025 9:00 PM CDT [facility] KETONES UA Negative Negative 03/21/2025 9:00 PM CDT [facility] UROBILINOGEN UA 0.2 <2.0 mg/dL 9:00 PM CDT [facility] BILIRUBIN UA Negative Negative 03/21/2025 9:00 PM CDT [facility] BLOOD UA Negative Negative 03/21/2025 9:00 PM CDT [facility] Urine URINE SPECIMEN OBTAINED BY CLEAN CATCH PROCEDURE / Unknown Collection / Unknown 03/21/2025 8:26 PM CDT 03/21/2025 8:43 PM CDT us Елена London MD URINE ORDERABLES Final Result [facility] CLIA # [id number] [address] [place] [address] [phone] * PTT (03/21/2025 6:38 PM CDT) PTT 27.7 25.1 - 35.4 seconds 03/21/2025 6:54 PM CDT [facility] Blood Collection / Unknown 03/21/2025 6:38 PM CDT 03/21/2025 6:44 PM CDT us Елена London MD HEMATOLOGY ORDERABLES Final Res ult [facility] CLIA # [id number] [address] [place] [phone] * (ABNORMAL) SEDIMENTATION RATE (03/21/2025 6:38 PM CDT) ESR (SEDIMENTATION RATE) 62(H) 0 - 30 mm/Hr 03/21/2025 6:51 PM CDT [facility] Blood Collection / Unknown 03/21/2025 6:38 PM CDT 03/21/2025 6:44 PM CDT Narrative [facility] - 03/21/2025 6:51 PM CDT Tube Lot: #[id number] Exp Date: 07/10/2026 QC1 LOT [id number] EXP.07/15/2025 QC2 LOT [id number] EXP.07/15/2025 us Елена London MD HEMATOLOGY ORDERABLES Final Res ult Performing Organization Address City/[facility]/ZIP Co de Phone Number [facility] CLIA # [id number] [address] [place] [address] [phone] * PROTIME-INR (03/21/2025 6:38 PM CDT) PROTIME 12.9 12.1 - 14.3 Seconds 03/21/2025 6:54 PM CDT [facility] INR 1.0 0.9 - 1.1 03/21/2025 6:54 PM CDT [facility] Blood Collection / Unknown 03/21/2025 6:38 PM CDT 03/21/2025 6:44 PM CDT us Елена London MD HEMATOLOGY ORDERABLES Final Res ult [facility] CLIA # [id number] [address] [place] [phone] * D-DIMER (03/21/2025 6:38 PM CDT) D-DIMER QUANT 0.42 <0.50 ug/mL FEU 03/21/2025 6:59 PM CDT [facility] Blood Collection / Unknown 03/21/2025 6:38 PM CDT 03/21/2025 6:44 PM CDT Narrative [facility] - 03/21/2025 6:59 PM CDT D-Dimer assay cutoff value for exclusion of DVT and/or PE is <0.50 ug/mL FEU. As D-Dimer levels increase naturally with age, age stratification for patients over 50 is potentially more appropriate in determining whether a patient should undergo further evaluation for DVT and/or PE than a general cutoff of 0.50 ug/mL FEU. Clinical consideration is recommended. Age Stratified Cutoff Values: 50-60 years: 0.50-0.60 ug/mL FEU 61-70 years: 0.61-0.70 ug/mL FEU 71-80 years: 0.71-0.80 ug/mL FEU Елена London MD HEMATOLOGY ORDERABLES Final Res ult Performing Organization Address City/[facility]/ZIP Co de Phone Number [facility] CLIA # [id number] [address] [place] [phone] * (ABNORMAL) TSH (03/21/2025 6:38 PM CDT) TSH 5.70(H) 0.27 - 4.20 uIU/mL 03/21/2025 7:08 PM CDT [facility] Blood Collection / Unknown 03/21/2025 6:38 PM CDT 03/21/2025 6:44 PM CDT us Елена London MD CHEMISTRY ORDERABLES Final Resu lt Performing Organization Address [facility]/ZIP Co de Phone Number [facility] CLIA # [id number] [address] [place] [phone] * LIPASE (03/21/2025 6:38 PM CDT) LIPASE 45 13 - 60 U/L 03/21/2025 7:04 PM CDT [facility] Blood Collection / Unknown 03/21/2025 6:38 PM CDT 03/21/2025 6:44 PM CDT us Елена London MD CHEMISTRY ORDERABLES Final [facility]u lt [id number] [address] [place] [address] [phone] * (ABNORMAL) HEMOGLOBIN A1C (03/13/2025 3:26 PM CDT) HEMOGLOBIN A1C 6.1(H) <5.7 % [facility] Comment: For someone without known diabetes, a hemoglobin A1c value between 5.7% and 6.4% is consistent with prediabetes and should be confirmed with a follow-up test. For someone with known diabetes, a value <7% indicates that their diabetes is well controlled. A1c targets should be individualized based on duration of diabetes, age, comorbid conditions, and other considerations. This assay result is consistent with an increased risk of diabetes. Currently, no consensus exists regarding use of hemoglobin A1c for diagnosis of diabetes for children. ESTIMATED AVERAGE GLUCOSE (MG/DL) 128 mg/dL [facility] ESTIMATED AVERAGE GLUCOSE (MMOL/L) 7.1 mmol/L [facility] Comment: Test Performed at: [facility] [address] [place] [address] Ehsan Frank MD Blood 03/13/2025 3:26 PM CDT 03/15/2025 5:07 AM CDT us Terence Rogers MD CHEMISTRY ORDERABLES Geena l Result [facility] [phone] [facility] [address] [place] [address] * HM DIABETES EYE EXAM (11/13/2024 10:00 AM CDT) us Abstract Provider HEALTH MAINTENANCE Edited Resu lt - Final * (ABNORMAL) LIPID PANEL (08/06/2024 10:36 AM POLYSOMNOGRAPH TECH) CHOLESTEROL 184 <200 mg/dL [facility] HDL 57 > OR = 50 mg/dL [facility] TRIGLYCERIDE 144 <150 mg/dL [facility] LDL CALCULATED 103(H) mg/dL (calc) [facility] Comment: Reference range: <100 Desirable range <100 mg/dL for primary prevention; <70 mg/dL for patients with CHD or diabetic patients with > or = 2 CHD risk factors. LDL-C is now calculated using the Soledad calculation, which is a validated novel method providing better accuracy than the Friedewald equation in the estimation of LDL-C. Daniel SS et al. MAGO. 2013;310(19): 0824-7492 (http://education.YourSports/faq/KJG298) CHOL/HDL RATIO 3.2 <5.0 (calc) [facility] NON-HDL CHOLESTEROL 127 <130 mg/dL (calc) [facility] Comment: For patients with diabetes plus 1 major ASCVD risk factor, treating to a non-HDL-C goal of <100 mg/dL (LDL-C of <70 mg/dL) is considered a therapeutic option. Test Performed at: [facility] [address] [place] [phone] Ehsan Frank MD Blood 08/06/2024 10:3 6 AM POLYSOMNOGRAPH TECH 08/07/2024 6:37 AM POLYSOMNOGRAPH TECH us Terence Rogers MD CHEMISTRY ORDERABLES Geena l Result [facility] [phone] [facility] [address] * (ABNORMAL) MICROALBUMIN/CREATININE RATIO, RANDOM UR (08/06/2024 10:30 AM POLYSOMNOGRAPH TECH) Creatinine, Urine 108 20 - 275 mg/dL [facility] MICROALBUMIN, URINE 72.9 See Note: mg/dL [facility] Comment: Reference Range: Reference Range Not established MICROALBUMIN/CREAT RATIO, UR 675(H) <30 mg/g creat [facility] Comment: The ADA defines abnormalities in albumin excretion as follows: Albuminuria Category Result (mg/g creatinine) Normal to Mildly increased <30 Moderately increased 30-299 Severely increased > OR = 300 The ADA recommends that at least two of three specimens collected within a 3-6 month period be abnormal before considering a patient to be within a diagnostic category. Test Performed at: [facility] [address] [place] [address] Ehsan Frank MD Urine URINE SPECIMEN OBTAINED BY CLEAN CATCH PROCEDURE / Unknown 08/06/2024 10:30 AM POLYSOMNOGRAPH TECH 08/07/2024 7:09 AM POLYSOMNOGRAPH TECH us Terence Rogers MD URINE ORDERABLES Final Re sult [facility] [phone] [facility] [address] [place] [address] * XR DEXA BONE DENSITY AXIAL 1 OR MORE SITES (09/28/2011 1:35 PM CDT) Anatomical Region Laterality Modality Other Narrative 09/28/2011 4:29 PM CDT Bone mineral [...] risk Procedure Note Jose Kearns MD - 09/10/2022 Bone mineral densitometry was assessed by DEXA [...] Most Recently Relevant to Health Maintenance Insurance RX [employer] RX Member Subscriber Plan / Payer (Ef fective 2024-Present) Name:Cathryn Ramsey Relation to Subscriber:Self Name:Cathryn Ramsey Payer ID:Not on file Group ID:[id number] Type:RX Medicare Part D Address: [address] [address] Advance Directives For more information, please contact: [phone] Documents on File Type Date 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 intubation): No Mechanical Ventilation (for respiratory distress) - Non-Invasive (i.e. BiPAP, CPAP): Yes * Full Code Date Activated Date Inactivated Comments 12/11/2024 10:55 AM 03/21/2025 6:16 PM * NO CPR (In Event of Cardiopulmonary Arrest) Date Activated Date Inactivated Comments 11/17/2023 9:22 AM 12/08/2023 6:16 PM Question Answer Comments Mechanical Ventilation (for respiratory distress) - Invasive (i.e. intubation): No Mechanical Ventilation (for respiratory distress) - Non-Invasive (i.e. BiPAP, CPAP): Yes * Full Code Date Activated Date Inactivated Comments 10/11/2021 5:33 PM 10/13/2021 1:24 PM * Full Code Date Activated Date Inactivated Comments 09/23/2021 4:46 PM 09/26/2021 3:48 PM Care Teams Comparator Operator Relationship Specialty Start Date End Date Terence Rogers MD [address] [phone] PCP - General Family Practice 12/20/16
--- OUTSIDE RECORDS SUMMARY | 2025-06-16 16:39 | XMS_ITS | Encounter Summary ---
Author Organization [facility] Address [address] 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 Gender Identity Not on file Sexual Orientation Not on file documented as of this encounter Plan of Treatment Not on file documented as of this encounter Procedures Procedure Name Priority Date/Time Associated Diagnosis Comments VITAMIN B12 LEVEL Routine 03/31/2006 12: 16 PM CDT documented in this encounter Results * VITAMIN B12 (03/31/2006 12:16 PM CDT) VITAMIN B12 281 211 - 911 pg/dL INTERFACE SYSTEM 03/31/2006 12:1 6 PM CDT us Madhav Sarmiento MD CHEMISTRY ORDERABLES Final R esult INTERFACE SYSTEM Refer to clinic/hospital department documented in this encounter Visit Diagnoses Not on filedocumented in this encounter Additional Health Concerns Infection Onset Date Last Indicated Resolved Time COVID-19 06/25/2020 06/25/2020 07/25/2020 8:08 PM MARKETING EXECUTIVE documented as of this encounter Care Teams Sausage Meat Trimmer Relationship Specialty Start Date End Date Terence Rogers MD [address] [address] PCP - General Family Practice 12/20/16 documented as of this encounter
--- OUTSIDE RECORDS SUMMARY | 2025-06-16 16:39 | XMS_ITS | Encounter Summary ---
Author Organization [employer] [facility] Address [address] [place] [address] Care Team Providers Care Garment Looper Name Role Phone Terence Rogers MD Primary Care Provider [phone] Encounter Details Date Type Department Care Team (Latest Contact Info) Description 05/11/2006 Outpatient Historical [facility] 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 Gender Identity Not on file Sexual Orientation Not on file documented as of this encounter Plan of Treatment Not on file documented as of this encounter Visit Diagnoses Diagnosis Primary localized osteoarthrosis, lower leg- Primary documented in this encounter Additional Health Concerns Infection Onset Date Last Indicated Resolved Time COVID-19 06/25/2020 06/25/2020 07/25/2020 8:08 PM CONVEYANCER documented as of this encounter Care Teams Garment Looper Relationship Specialty Start Date End Date Terence Rogers MD [address] [facility] [address] [place] [phone] PCP - General Family Practice 12/20/16 documented as of this encounter
--- OUTSIDE RECORDS SUMMARY | 2025-06-16 16:39 | XMS_ITS | Encounter Summary ---
Author Organization [facility] Address [address] [place] [address] Care Team Providers Care Band Attacher Name Role Phone Terence Rogers MD Primary Care Provider [phone] Encounter Details Date Type Department Care Team (Latest Contact Info) Description 11/19/2014 Ancillary Orders [facility] Centralized Scheduling [address] [place] [phone] Sabi Dick MD [address] [place] [address] Cervicalgia (Primary Dx) Social History Tobacco Use Types Packs/Day Years Used Date Smoking Tobacco: Former Cigarettes 0.5 20 0 [birth year]14/1952 - 08/14/1971 Smokeless Tobacco: Never Alcohol Use Standard Drinks/Week Comments No 0 (1 standard drink = 0.6 oz pur e alcohol) Comments No Sex and Gender Information Value Date Recorded Sex Assigned at Not on file Legal Sex Female 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 COTTON ROLL PACKER Gender Identity Not on file Sexual Orientation Not on file Occupation Industry Job Start Date Job End Date Not on file Not on file Not on file Not on file documented as of this encounter Plan of Treatment Not on file documented as of this encounter Visit Diagnoses Diagnosis Cervicalgia- Primary documented in this encounter Additional Health Concerns Infection Onset Date Last Indicated Resolved Time COVID-19 06/25/2020 06/25/2020 07/25/2020 8:08 PM COTTON ROLL PACKER documented as of this encounter Care Teams Band Attacher Relationship Specialty Start Date End Date Terence Rogers MD [address] [phone] PCP - General Family Practice 12/20/16 documented as of this encounter
--- NOTE | 2025-06-16 16:44 | W.ED.SOB ---
HPI - SOB/Dyspnea General: Chief Complaint: Shortness of Breath/Dyspnea Stated Complaint: trouble breathing Time Seen by Provider: 06/16/25 16:32 History of Present Illness: HPI Narrative: 84-year-old female patient presents to the emergency department today for complaint of increased shortness of breath over the last several days. Patient reports that she has been using her albuterol inhaler more often at home and feels like the 3 L she normally wears is not enough. Related Data Home Medications ?Medication ?Instructions ?Recorded ?Confirmed allopurinol 300 mg tablet 300 mg PO BID 07/31/19 02/06/25 carbidopa 25 mg-levodopa 100 mg 1 tab PO TID 07/31/19 02/06/25 tablet cyanocobalamin (vitamin B-12) 1,000 mcg IM Q30D 07/31/19 02/06/25 1,000 mcg/mL injection solution oxycodone-acetaminophen 10 mg-325 1 tab PO Q8H PRN Pain, Mild 07/31/19 02/06/25 mg tablet pramipexole 0.5 mg tablet 1 mg PO BEDTIME 07/31/19 02/06/25 sennosides 8.6 mg-docusate sodium 1 tab-cap PO BID PRN Constipation 07/31/19 02/06/25 50 mg tablet calcium 600 mg (as 1 tab PO DAILY 06/22/20 02/06/25 carbonate)-vitamin D3 5 mcg (200 unit) tablet (Calcium 600 + D(3)) potassium chloride 10 mEq 20 meq PO DAILY PRN Edema 07/15/20 02/06/25 tablet,extended release (Klor-Con) levothyroxine 100 mcg tablet 100 mcg PO DAILY 08/30/22 02/06/25 albuterol sulfate 90 mcg/actuation 2 puff inhalation Q4H PRN 09/01/22 02/06/25 aerosol inhaler Shortness Of Breath naloxone 4 mg/actuation nasal spray 4 mg intranasal Q3M PRN overdose 09/01/22 02/06/25 insulin glargine 100 unit/mL 10 unit SUBCUT BEDTIME 11/09/22 02/06/25 subcutaneous solution (Lantus U-100 Insulin) zinc acetate 25 mg (zinc) capsule 25 mg PO DAILY 09/26/23 02/06/25 baclofen 5 mg tablet 5 mg PO BID PRN Spasms 10/29/23 02/06/25 buspirone 5 mg tablet 5 mg PO DAILY 10/29/23 02/06/25 sertraline 100 mg tablet 100 mg PO DAILY 10/29/23 02/06/25 furosemide 20 mg tablet 20 mg PO DAILY 11/05/23 02/06/25 pantoprazole 40 mg tablet,delayed 40 mg PO DAILY 11/05/23 02/06/25 release metoprolol tartrate 25 mg tablet 50 mg PO BID 08/15/24 02/06/25 Previous Rx's ?Medication ?Instructions ?Recorded nitroglycerin 0.4 mg sublingual 0.4 mg sublingual Q5M PRN chest 12/10/19 tablet pain 30 days #30 tabs post mastectomy Bras #4 ea 01/14/22 apixaban 2.5 mg tablet 2.5 mg PO BID #90 tabs 03/16/22 budesonide 160 mcg-glycopyr 9 2 inh inhalation BID #10.7 grams 05/25/23 mcg-formot 4.8 mcg/actuation HFA inhaler (Breztri Aerosphere) isosorbide mononitrate 60 mg 60 mg PO DAILY #90 tabs 12/07/23 tablet,extended release 24 hr Allergies Allergy/AdvReac Type Severity Reaction Status Date / Time codeine Allergy patient Verified 02/06/25 08:09 doesn't recall flecainide Allergy severe Verified 02/06/25 08:09 vomiting garlic Allergy Unknown Verified 02/06/25 08:09 Iodinated Contrast Media Allergy renal Verified 02/06/25 08:09 disease naproxen Allergy renal Verified 02/06/25 08:09 disease Penicillins Allergy hives Verified 02/06/25 08:09 shellfish derived Allergy unknown Verified 02/06/25 08:09 Sulfa (Sulfonamide Allergy itching Verified 02/06/25 08:09 Antibiotics) tramadol AdvReac makes me Verified 02/06/25 08:09 kinga Review of Systems Resp: Reports: dyspnea, non-productive cough and wheezing PFSH ED PFSH: Medical History (Updated 06/16/25 @ 18:01 by Christina Gillespie NP) Diastolic heart failure Intermittent atrial fibrillation Ascitic fluid Abdominal distention Clear vaginal discharge DNR (do not resuscitate) MATILDA (acute kidney injury) MATILDA (acute kidney injury) Acute UTI Atrial fibrillation Sinus node dysfunction Obstructive sleep apnea Gastritis and duodenitis Enterovirus infection, unspecified CHF exacerbation Community acquired pneumonia Fracture of distal end of right fibula Lung nodule, solitary Restrictive lung disease Restrictive lung disease Transaminitis Mild. Most likely due to passive congestion due her CHF. Lumbar stenosis with neurogenic claudication Difficulty in swallowing High anion gap metabolic acidosis Bilateral renal cysts On multiple imaging modalities all appear simple. No further work-up recommended December 2020 Pacemaker Right bundle branch block Supraventricular tachycardia COVID-19 Elevated troponin Chest pain Chronic respiratory failure with hypoxia and hypercapnia GERD (gastroesophageal reflux disease) Atypical chest pain Cardiac [place] [address] [place]. She had no significant coronary artery disease at that time. Chronic kidney disease Osteoarthritis Syncope Chronic kidney disease -baseline Cr appears to be around 2-2.3 - Symptomatic bradycardia UTI (urinary tract infection) - Bradycardia Anemia -on iron supplementation COPD (chronic obstructive pulmonary disease) Uses 3 L [id number] and BiPAP at night Gout Former smoker Normal coronary angiogram Cardiac angiogram done in September 2015 Chronic back pain History of pulmonary embolism -is on AC with Eliquis Hypothyroidism Type 2 diabetes mellitus Hypertension Diastolic heart failure Chronic anticoagulation Paroxysmal A-fib Surgical History Postoperative state Status post lumbar laminectomy H/O right mastectomy History of tonsillectomy H/O hernia repair H/O colonoscopy 2019 H/O esophagogastroduodenoscopy (~04/2020) 2020 H/O left knee surgery Tubal ligation status History of cholecystectomy Family History Father CAD (coronary artery disease) Family history of premature coronary artery disease Hypertension Mother Cancer Chronic kidney disease (CKD) Hypertension Sister Hyperlipidemia Hypertension Daughter No problems noted. Other Diabetes Social History Smoking and tobacco/nicotine status: former use of tobacco/nicotine Quit status (tobacco/nicotine): has quit using Year quit tobacco: 1970 - 1PPD x 25 Years Alcohol intake: never Substance/Drug Use: never Caregiver/support person: Yes Lives independently: Yes Household members: family Housing: House Marital status: / Current occupational status: retired Do you think of yourself as: Straight/Heterosexual Course Consultations: Consultation #1: [id number] ESCALANTE about admitting the patient to the hospital for CTA chest exacerbation patient will be admitted to the medical floor. Vital Signs: Vital signs: Vital Signs Temperature 98.2 F 06/16/25 16:35 Pulse Rate 86 06/16/25 17:31 Respiratory Rate 18 06/16/25 17:24 Blood Pressure 160/80 06/16/25 16:35 Pulse Oximetry 98 06/16/25 17:24 Oxygen Delivery Me thod Nasal Cannula 06/16/25 17:24 Oxygen Flow Rate 3 06/16/25 17:24 MDM - SOB/Dyspnea Medical Decision Making 84-year-old female patient presents to the emergency department today for complaint of increased shortness of breath over the last several days. Patient reports that she has been using her albuterol inhaler more often at home and feels like the 3 L she normally wears is not enough. On assessment patient has left upper and lower lung with inspiratory and expiratory wheezing, right lung slightly diminished in the right lower lobe clear right upper. Patient's abdomen is round, distended, and firm. Right lower extremity with 1+ pitting edema circumferential in nature. Left lower extremity with edema however it is not pitting at this time. Patient is alert and oriented she arrived on room air however she usually wears 3 L at home. She is tachypneic and noted working to breathe on arrival after administering 3 L of oxygen she is more comfortable, patient reports that DuoNeb treatment did not help her shortness of breath. BNP 7456 patient given 40 mg of Lasix IV for fluid overload. I spoke with the hospitalist Dr. ESCALANTE who graciously except this admission for CHF exacerbation and shortness of breath. Differential Diagnosis Likely acute exacerbation of chronic obstructive airways disease, congestive heart failure and community acquired pneumonia Lab Data 06/16/25 17:04 06/16/25 17:04 Labs/Radiology: Radiology Impressions Chest X-Ray 06/16/25 16:38 IMPRESSION: 1. No new or worsening findings; chronic findings stable. 2. Reticular interstitial thickening, likely chronic, without focal alveolar consolidation. Nonspecific; most consistent with chronic fibrotic interstitial change, age-related/nonspecific. Recommend correlation with clinical history; pulmonary function tests if clinically indicated. 3. Moderate age-appropriate degenerative spinal changes. Other chronic/non-acute findings as described above. COMMENTS: Qualitative demineralization of bones (osteopenia) limiting evaluation for nondisplaced fractures. Laboratory Results WBC 6.77 10^3/uL (3.29-11.43) 06/16/25 17:04 RBC 3.43 10^6/uL (3.85-5.65) L 06/16/25 17:04 Hgb 9.90 g/dL (11.27-16.99) L 06/16/25 17:04 Hct 32.9 % (36-47) L 06/16/25 17:04 MCV 95.9 fl (85-98) 06/16/25 17:04 MCH 28.9 pg (27-33) 06/16/25 17:04 MCHC 30.1 g/dL (30-55) 06/16/25 17:04 RDW 16.1 % (12.1-15.1) H 06/16/25 17:04 Plt Count 133 10^3/cmm (157-399) L 06/16/25 17:04 MPV 11.3 fL (7.4-10.4) H 06/16/25 17:04 Neut % (Auto) 74.3 % 06/16/25 17:04 Lymph % (Auto) 15.5 % 06/16/25 17:04 [place] % (Auto) 8.3 % 06/16/25 17:04 Eos % (Auto) 0.9 % 06/16/25 17:04 Baso % (Auto) 0.3 % 06/16/25 17:04 Neut # (Auto) 5.03 10^3/uL (1.8-7.7) 06/16/25 17:04 Lymph # (Auto) 1.1 10^3/uL (0.8-4.8) 06/16/25 17:04 [place]on # (Auto) 0.6 10^3/uL (0.2-0.9) 06/16/25 17:04 Eos # (Auto) 0.1 10^3/uL (0.0-0.8) 06/16/25 17:04 Baso # (Auto) 0.0 10^3/uL (0.0-0.1) 06/16/25 17:04 Nucleated RBC % (auto) 0 % 06/16/25 17:04 Nucleated RBCs # 0.0 /100WBC 06/16/25 17:04 Sodium 140 mmol/L (136-145) 06/16/25 17:04 Potassium 4.1 mmol/L (3.5-5.1) 06/16/25 17:04 Chloride 104 mmol/L (98-107) 06/16/25 17:04 Carbon Dioxide 23 mmol/L (22-29) 06/16/25 17:04 Anion Gap 17.1 (5-19) 06/16/25 17:04 BUN 45 mg/dL (8-23) H 06/16/25 17:04 Creatinine 1.2 mg/dL (0.5-0.9) H 06/16/25 17:04 GFR Calculation Not Reportable 06/16/25 17:04 Glucose 133 mg/dL (65-115) H 06/16/25 17:04 Calculated Osmolality 303 mOsm/kg (285-295) H 06/16/25 17:04 Calcium 8.9 mg/dL (8.5-10.5) 06/16/25 17:04 Total Bilirubin 0.4 mg/dL (0.15-1.2) 06/16/25 17:04 AST 27 U/L (0-32) 06/16/25 17:04 ALT < 5 U/L (0-33) 06/16/25 17:04 Alkaline Phosphatase 226 U/L (35-105) H 06/16/25 17:04 Troponin T Baseline 69 ng/L (0-10) H 06/16/25 17:04 C-Reactive Protein 11.8 mg/L (0.0-4.9) H 06/16/25 17:04 NT-Pro-B Natriuret Pep 7456 pg/mL (0-450) H 06/16/25 17:04 Total Protein 6.1 g/dL (6.6-8.7) L 06/16/25 17:04 Albumin 3.7 g/dL (3.5-5.2) 06/16/25 17:04 Globulin 2.4 g/dL (1.3-4.6) 06/16/25 17:04 XR interpretation done by ED provider, pending radiology final review EKG Data EKG 1: Interpretation: Vent rate 80 bpm, UT interval 245, QRS duration 145, QT/QTc 407/444P?RR?T axes 60 33 -2 Computer Generated Interpretation: Sinus rhythm with first-degree AV block with occasional supraventricular premature complexes right bundle branch block EKGs presented to the ER physician Dr. Leiva. Discharge Plan Discharge Patient Disposition: Admitted As Inpatient Clinical Impression: Breath shortness Acute exacerbation of CHF (congestive heart failure) Qualifiers: Heart failure type: unspecified Qualified Code(s): I50.9 - Heart failure, unspecified Condition: Stable Coding Level of Care Code ED Medical Physics Teacher for Patrizia Corral
--- NOTE | 2025-06-16 16:50 | ECG_ITS ---
[facility]16 Pat Name: Vaibhav Ramsey Department: Room: Gender: Female Student: : 1940 Requested By: Christina Gillespie Order Number: [id number] Rodolfo MD: Vanessa Gregorio M.D. Measurements Intervals [place] Rate: 80 P: 60 NV: 245 QRS: 33 QRSD: 145 T: -2 QT: 407 QTc: 472 Interpretive Statements SINUS RHYTHM WITH FIRST DEGREE AV BLOCK WITH OCCASIONAL SUPRAVENTRICULAR PREMATURE COMPLEXES RIGHT BUNDLE BRANCH BLOCK [120+ ms QRS DURATION, UPRIGHT V1, 40+ ms S IN I/aVL/V4/V5/V6] Compared to ECG 11/06/2023 23:47:20 First degree AV block now present Right bundle-branch block now present Ventricular-paced complex(es) or rhythm no longer present Electronically Signed On 06-20-2025 18:23:19 PUBLIC WORKS TECHNICIAN by Vanessa Gregorio M.D. [email or web address]
--- NOTE | 2025-06-16 16:54 | CTR_ITS ---
PROCEDURE INFORMATION: Exam: CT Abdomen And Pelvis Without Contrast Exam date and time: 06/16/2025 5:16 PM Age: 84 years old Clinical indication: Bloating; Prior surgery; Surgery date: 6+ months; Surgery type: Pacer; Additional info: Ascites, abdominal distention TECHNIQUE: Imaging protocol: Computed tomography of the abdomen and pelvis without contrast. Total images: 1 Radiation optimization: All CT scans at this facility use at least one of these dose optimization techniques: automated exposure control; mA and/or kV adjustment per patient size (includes targeted exams where dose is matched to clinical indication); or iterative reconstruction. COMPARISON: 1. CT angio abdomen pelvis [id number] 11/05/2023 7:[address] abdomen pelvis wo con [id number] 10/28/2023 2:08 PM RADIATION DOSE METRICS: Total DLP (mGy-cm): 663.6 FINDINGS: Limitations: Noncontrast technique limits assessment of solid organs, mucosal surfaces, and vascular structures. Bowel evaluation limited by lack of oral contrast. Tubes, catheters and devices: Single chamber cardiac pacemaker lead projecting satisfactory. Lungs: Reticular interstitial thickening, likely chronic, without focal alveolar consolidation. Bibasilar streaky linear opacities characteristic of atelectasis or postinflammatory parenchymal scarring. Pleural spaces: No pleural effusion or pneumothorax insofar as the pleural contours are visualized within the field of view. Heart: Moderate cardiomegaly. Mitral valve annulus calcification. Diaphragm: Small hiatal hernia. Liver: Nodular liver capsule contour consistent with early cirrhosis. Gallbladder and biliary ducts: Cholecystectomy clips account for surgical clips in gallbladder fossa. No biliary tree dilation or retained stones appreciated. Pancreas: Pancreatic generalized parenchymal thinning of chronic atrophy. Spleen: Splenic punctate calcification, likely chronic sequelae of prior granulomatous infection. Spleen is otherwise unremarkable. Adrenal glands: Adrenal glands are normal. Kidneys and ureters: Bilateral likely benign renal cysts are present, requiring no further evaluation, as large as 6.4 cm arising from the upper pole of the left kidney, 2.2 cm at the mid to lower pole of the right kidney and 2.4 cm at the lower pole of the right kidney. Nonspecific mild perinephric stranding; likely senescent and incidental. Kidneys are otherwise normal. Stomach and bowel: There is a small duodenal diverticulum. Stomach is nondistended demonstrating areas of gastric wall thickening without suspicious pathologic fluid or inflammation to suggest acute gastritis or other specific inflammatory gastric process. No pathologic bowel distension or bowel wall thickening. Moderate burden of colonic stool without distension. Mild chronic diverticulosis of the distal colon without imaging evidence of acute diverticulitis. Appendix: Appendix is not confidently visualized; however, no regional inflammatory changes are seen in the expected location of the appendix. Intraperitoneal space: Trace right upper abdominal perihepatic low-density simple ascites fluid. Vasculature: Severe scattered vascular calcifications, with greatest calcification involving the aorta and splenic artery and left renal artery. No major vessel aneurysm. However hemodynamically significant stenosis or occlusion of small vessels, especially the left renal artery, is difficult to exclude in the setting of severe plaque burden. Lymph nodes: Right para-aortic enlarged 1.3 cm short axis lymph node (series 4, image 31) along with shotty subcentimeter aortocaval lymph nodes. Clustered small mesenteric lymph nodes with mild surrounding hazy mesenteric fat and mild adjacent bowel wall thickening (enteritis). No focal mesenteric abscess or bowel obstruction. Urinary bladder: Small volume intraluminal bladder gas, most likely post-instrumentation. No evidence of obstructing urinary calculus or hydronephrosis. Reproductive: Calcification of uterus; likely benign incidental uterine fibroids. Uterus is normal in size and serosal contour. Bones/joints: Pubic symphysis severe degenerative changes (osteitis pubis). Sacroiliac joint degenerative manifestations. Severe chronic generalized degenerative changes of the vertebral column, including multilevel osteophytes, degenerative disc height loss, vacuum disc phenomenon, and facet arthrosis, consistent with patient age. L2-L3, L3-L4, L5-S1 prominent dorsal disc osteophytic ridges moderately narrowing the spinal canal, and bilateral neural foramina. 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 No intrinsic osseous abnormality identified. Generalized bony tendon origin/insertion proliferative enthesopathy, mild. Soft tissues: Posterior/dependent superficial soft tissue edema; suspicious for anasarca. Ventral abdominal wall midline umbilical-periumbilical fat-containing hernia without inflammatory manifestations. Diastasis of the anterior abdominal wall. Otherwise dermal and superficial subcutaneous soft tissues as visualized appear normal without pathologic mass or induration. CT/CT abdomen pelvis wo con [id number] IMPRESSION: 1. Nodular liver capsule contour consistent with early cirrhosis. 2. Trace right upper abdominal perihepatic low-density simple ascites fluid. 3. Post-cholecystectomy biliary system normal. 4. Right para-aortic enlarged 1.3 cm short axis lymph node (series 4, image 31) along with shotty subcentimeter aortocaval lymph nodes. 5. Mild mesenteric adenitis nonspecific; often postinfectious or reactive. 6. Uncomplicated distal colonic diverticulosis. 7. Posterior/dependent superficial soft tissue edema; suspicious for anasarca. 8. Advanced age-appropriate degenerative spinal changes, with other chronic/non-acute findings as described above. 9. Severe scattered vascular calcifications, with greatest calcification involving the aorta and splenic artery and left renal artery. 10. Small volume intraluminal bladder gas, most likely post-instrumentation. If no recent instrumentation, consider infection with gas-forming organisms. 11. Lung interstitial reticular thickening, likely chronic, without focal alveolar consolidation. Nonspecific; most consistent with chronic fibrotic interstitial change, age-related/nonspecific. Recommend correlation with clinical history; pulmonary function tests if clinically indicated. COMMENTS: 1. Consider repeat with IV contrast if clinically warranted. 2. Bowel evaluation limited; repeat with oral contrast if clinically warranted.
[2025-06-16 17:08] LABS: Hematocrit 32.9 % (36-47); Hemoglobin 9.90 g/dL (11.27-16.99); Mean Corpuscular HGB Conc 30.1 g/dL (30-55); Mean Corpuscular Hemoglobin 28.9 pg (27-33); Mean Corpuscular Volume 95.9 fl (85-98); Nucleated Red Blood Cells % 0 %; Platelet Count 133 10^3/cmm (157-399); Red Blood Count 3.43 10^6/uL (3.85-5.65); White Blood Count 6.77 10^3/uL (3.29-11.43)
[2025-06-16 17:26] LABS: Troponin(5th) Baseline 69 ng/L (0-10)
[2025-06-16 17:45] LABS: Alanine Aminotransferase < 5 U/L (0-33); Albumin Level 3.7 g/dL (3.5-5.2); Alkaline Phosphatase 226 U/L (35-105); Anion Gap 17.1 (5-19); Aspartate Amino Transferase 27 U/L (0-32); Blood Urea Nitrogen 45 mg/dL (8-23); Calcium 8.9 mg/dL (8.5-10.5); Carbon Dioxide 23 mmol/L (22-29); Chloride 104 mmol/L (98-107); Globulin 2.4 g/dL (1.3-4.6); Glucose 133 mg/dL (65-115); NT Pro B Type Natriuretic Pept 7456 pg/mL (0-450); Osmolality Calculated 303 mOsm/kg (285-295); Potassium 4.1 mmol/L (3.5-5.1); Sodium 140 mmol/L (136-145); Total Protein 6.1 g/dL (6.6-8.7)
--- NOTE | 2025-06-16 18:39 | PM.HP ---
Providers/Chief Complaint Primary Care Provider: Terence Rogers Chief Complaint: trouble breathing History of Present Illness Vaibhav Ramsey is a 84 year old female with past medical diabetesintermittent atrial fibrillation, permanent pacer implantation, supraventricular tachycardia, essential benign hypertension and congestive heart failure. She also is known to have obstructive sleep apnea Presents with progressive shortness of breath. Worse in the last 3 days. Reports that she is normally on 2 to 3 L of oxygen. States he has a dry cough. No increased leg swelling. Denies chest pain. She does state that she feels congested. The patient does also have history of sleep apnea. Reports she is on bilevel. She also states that she follows with cardiology for her pacemaker. In addition to increased leg swelling and difficulty breathing she also reports that she has had some fatigue. Denies any dark stools. Denies abdominal pain. Or recent change in her medications. Review of Systems General: Reports: 10 or more systems reviewed and unremarkable except in HPI and below Const: Denies: fever(s), chills or change in appetite Card: Denies: chest pain, palpitations or irregular heart rhythm GI: Denies: abdominal pain or nausea Musc: Denies: neck pain or back pain Neuro: Denies: headache(s) or numbness in extremities Endo: Denies: polyuria or polydipsia Medications/Allergies Home Medications ?Medication ?Instructions ?Recorded ?Confirmed ?Last Taken ?Type allopurinol 300 mg tablet 300 mg PO BID 07/31/19 02/06/25 10/29/23 History carbidopa 25 mg-levodopa 100 mg 1 tab PO TID 07/31/19 02/06/25 10/29/23 History tablet cyanocobalamin (vitamin B-12) 1,000 mcg IM Q30D 07/31/19 02/06/25 10/24/23 History 1,000 mcg/mL injection solution oxycodone-acetaminophen 10 mg-325 1 tab PO Q8H PRN Pain, Mild 07/31/19 02/06/25 11/09/22 History mg tablet pramipexole 0.5 mg tablet 1 mg PO BEDTIME 07/31/19 02/06/25 10/28/23 History sennosides 8.6 mg-docusate sodium 1 tab-cap PO BID PRN Constipation 07/31/19 02/06/25 08/29/22 History 50 mg tablet nitroglycerin 0.4 mg sublingual 0.4 mg sublingual Q5M PRN chest 12/10/19 02/06/25 07/06/20 20:00 Rx tablet pain 30 days #30 tabs calcium 600 mg (as 1 tab PO DAILY 06/22/20 02/06/25 10/29/23 History carbonate)-vitamin D3 5 mcg (200 unit) tablet (Calcium 600 + D(3)) potassium chloride 10 mEq 20 meq PO DAILY PRN Edema 07/15/20 02/06/25 09/26/23 History tablet,extended release (Klor-Con) post mastectomy Bras #4 ea 01/14/22 07/30/24 Unknown Rx apixaban 2.5 mg tablet 2.5 mg PO BID #90 tabs 03/16/22 02/06/25 10/29/23 Rx levothyroxine 100 mcg tablet 100 mcg PO DAILY 08/30/22 02/06/25 10/29/23 History albuterol sulfate 90 mcg/actuation 2 puff inhalation Q4H PRN 09/01/22 02/06/25 Unknown History aerosol inhaler Shortness Of Breath naloxone 4 mg/actuation nasal spray 4 mg intranasal Q3M PRN overdose 09/01/22 02/06/25 Unknown History insulin glargine 100 unit/mL 10 unit SUBCUT BEDTIME 11/09/22 02/06/25 10/28/23 History subcutaneous solution (Lantus U-100 Insulin) budesonide 160 mcg-glycopyr 9 2 inh inhalation BID #10.7 grams 05/25/23 02/06/25 10/29/23 Rx mcg-formot 4.8 mcg/actuation HFA inhaler (Breztri Aerosphere) zinc acetate 25 mg (zinc) capsule 25 mg PO DAILY 09/26/23 02/06/25 10/29/23 History baclofen 5 mg tablet 5 mg PO BID PRN Spasms 10/29/23 02/06/25 10/29/23 History buspirone 5 mg tablet 5 mg PO DAILY 10/29/23 02/06/25 10/29/23 History sertraline 100 mg tablet 100 mg PO DAILY 10/29/23 02/06/25 10/29/23 History furosemide 20 mg tablet 20 mg PO DAILY 11/05/23 02/06/25 Unknown History pantoprazole 40 mg tablet,delayed 40 mg PO DAILY 11/05/23 02/06/25 Unknown History release isosorbide mononitrate 60 mg 60 mg PO DAILY #90 tabs 12/07/23 02/06/25 Unknown Rx tablet,extended release 24 hr metoprolol tartrate 25 mg tablet 50 mg PO BID 08/15/24 02/06/25 Unknown History Allergies Allergy/AdvReac Type Severity Reaction Status Date / Time codeine Allergy patient Verified 02/06/25 08:09 doesn't recall flecainide Allergy severe Verified 02/06/25 08:09 vomiting garlic Allergy Unknown Verified 02/06/25 08:09 Iodinated Contrast Media Allergy renal Verified 02/06/25 08:09 disease naproxen Allergy renal Verified 02/06/25 08:09 disease Penicillins Allergy hives Verified 02/06/25 08:09 shellfish derived Allergy unknown Verified 02/06/25 08:09 Sulfa (Sulfonamide Allergy itching Verified 02/06/25 08:09 Antibiotics) tramadol AdvReac makes me Verified 02/06/25 08:09 crazy PFSH Acute PFSH: Medical History (Updated 06/16/25 @ 18:45 by Bonnie Taveras MD) Diastolic heart failure Intermittent atrial fibrillation Ascitic fluid Abdominal distention Clear vaginal discharge DNR (do not resuscitate) MATILDA (acute kidney injury) MATILDA (acute kidney injury) Acute UTI Atrial fibrillation Sinus node dysfunction Obstructive sleep apnea Gastritis and duodenitis Enterovirus infection, unspecified CHF exacerbation Community acquired pneumonia Fracture of distal end of right fibula Lung nodule, solitary Restrictive lung disease Restrictive lung disease Transaminitis Mild. Most likely due to passive congestion due her CHF. Lumbar stenosis with neurogenic claudication Difficulty in swallowing High anion gap metabolic acidosis Bilateral renal cysts On multiple imaging modalities all appear simple. No further work-up recommended December 2020 Pacemaker Right bundle branch block Supraventricular tachycardia COVID-19 Elevated troponin Chest pain Chronic respiratory failure with hypoxia and hypercapnia GERD (gastroesophageal reflux disease) Atypical chest pain Cardiac catheterization [place] [address] Monaco. She had no significant coronary artery disease at that time. Chronic kidney disease Osteoarthritis Syncope Chronic kidney disease -baseline Cr appears to be around 2-2.3 - Symptomatic bradycardia UTI (urinary tract infection) - Bradycardia Anemia -on iron supplementation COPD (chronic obstructive pulmonary disease) Uses 3 L [id number] and BiPAP at night Gout Former smoker Normal coronary angiogram Cardiac angiogram done in September 2015 Chronic back pain History of pulmonary embolism -is on AC with Eliquis Hypothyroidism Type 2 diabetes mellitus Hypertension Diastolic heart failure Chronic anticoagulation Paroxysmal A-fib Surgical History Postoperative state Status post lumbar laminectomy H/O right mastectomy History of tonsillectomy H/O hernia repair H/O colonoscopy 2019 H/O esophagogastroduodenoscopy (~04/2020) 2019 H/O left knee surgery Tubal ligation status History of cholecystectomy Family History Father CAD (coronary artery disease) Family history of premature coronary artery disease Hypertension Mother Cancer Chronic kidney disease (CKD) Hypertension Sister Hyperlipidemia Hypertension Daughter No problems noted. Other Diabetes Social History Smoking and tobacco/nicotine status: former use of tobacco/nicotine Quit status (tobacco/nicotine): has quit using Year quit tobacco: 1970 - 1PPD x 25 Years Alcohol intake: never Substance/Drug Use: never Caregiver/support person: Yes Lives independently: Yes Household members: family Housing: House Marital status: / Current occupational status: retired Do you think of yourself as: Straight/Heterosexual Vitals/I&O/Wt Last Vital Signs Temp 98.2 F 06/16/25 16:35 Pulse 86 06/16/25 17:31 Resp 18 06/16/25 17:24 BP 160/80 06/16/25 16:35 Pulse Ox 98 06/16/25 17:24 O2 Del Method Nasal Cannula 06/16/25 17:24 O2 Flow Rate 3 06/16/25 17:24 Weight last 48 hrs Weight 90.718 kg Physical Exam Const: COMMON NORMALS: no acute distress and patient oriented x3 OTHER: Obese Resp: COMMON NORMALS: normal respiratory effort and No retractions EFFORT & INSPECTION: Yes able to speak in complete sentences Cardio: COMMON NORMALS: no JVD, regular rate and regular rhythm GI: COMMON NORMALS: Normal to inspection, nondistended, normoactive bowel sounds present Extremity: OTHER: +1 edema bilateral Data 06/16/25 17:04 06/16/25 17:04 A&P Assessment and plan 1. Anemia: Appears to be chronic and her hemoglobin is at her baseline. Will continue to monitor 2. Presence of permanent cardiac pacemaker: Keep on telemetry 3. Diastolic heart failure: Check echocardiogram continue IV Lasix await home medication reconciliation consider cardiology consultation 4. Acute exacerbation of CHF (congestive heart failure): As above 5. Benign essential hypertension with target blood pressure below 140/90: Restart home medication once medication conciliation completed 6. Diabetes: FSBS, sign scale insulin restart home Lantus when medication reconciliation completed 7. Hypothyroidism: check TSH PDMP PDMP Reviewed: Not Reviewed Attestations Medical Necessity Statement*: She will be diuresis oxygen treatment consider cardiology consultation Coding Level of Care Code 32182 Diagnoses Anemia D64.9 Presence of permanent cardiac pacemaker Z95.0 Diastolic heart failure I50.30 Acute exacerbation of CHF (congestive heart failure) I50.9 Benign essential hypertension with target blood pressure below 140/90 I10 Diabetes E11.9 Hypothyroidism E03.9
[2025-06-16] MEDS: FUROsemide 10 mg/mL SDV 4mL 40 MG IVP (19:45)
[2025-06-16 20:16] LABS: Respiratory Syncytial Virus Ce NEGATIVE (Negative); SARS-CoV-2 PCR NEGATIVE (Negative)
[2025-06-16] MEDS: neomycin-poly-bacitracin oint 28 gm 1 APPLIC TOPICAL (22:08)
--- NOTE | 2025-06-16 22:31 | ECG_ITS ---
[facility] Test Date: 2025-06-16 Pat Name: Vaibhav Ramsey Department: Room: 275 Gender: Female Logistics Solution Manager: : 1940 Requested By: Christina Gillespie Order Number: [id number] Rodolfo MD: Vanessa Gregorio M.D. Measurements Intervals Calder Rate: 78 P: 69 WY: 263 QRS: 122 QRSD: 146 T: -1 QT: 437 QTc: 499 Interpretive Statements SINUS RHYTHM WITH FIRST DEGREE AV BLOCK WITH OCCASIONAL SUPRAVENTRICULAR PREMATURE COMPLEXES RIGHT AXIS DEVIATION [QRS AXIS > 100] RIGHT BUNDLE BRANCH BLOCK [120+ ms QRS DURATION, UPRIGHT V1, 40+ ms S IN I/aVL/V4/V5/V6] Compared to ECG 06/16/2025 16:50:03 Right-axis deviation now present Electronically Signed On 06-20-2025 18:21:28 PLANT FACILITIES TECHNICIAN by Vanessa Gregorio M.D. [email or web address]
[2025-06-16 23:26] LABS: Troponin 5 6HR 68.77 ng/L (0-10)
[2025-06-16 23:29] LABS: Troponin 5 6HR Delta -0.23 ng/L (0-12)
[2025-06-17] VITALS (8 sets, daily range): BP systolic 113–151; BP diastolic 52–84; PULSE 66–88; RESP 16–18; TEMP 36.3–36.6; O2SAT 94–98; BMI 30.9
[2025-06-17 03:57] LABS: Hematocrit 31.2 % (36-47); Hemoglobin 9.50 g/dL (11.27-16.99); Mean Corpuscular HGB Conc 30.4 g/dL (30-55); Mean Corpuscular Hemoglobin 29.6 pg (27-33); Mean Corpuscular Volume 97.2 fl (85-98); Nucleated Red Blood Cells % 0 %; Platelet Count 130 10^3/cmm (157-399); Red Blood Count 3.21 10^6/uL (3.85-5.65); White Blood Count 6.46 10^3/uL (3.29-11.43)
[2025-06-17 04:21] LABS: Anion Gap 14.1 (5-19); Blood Urea Nitrogen 43 mg/dL (8-23); Calcium 8.8 mg/dL (8.5-10.5); Carbon Dioxide 27 mmol/L (22-29); Chloride 102 mmol/L (98-107); Glucose 104 mg/dL (65-115); Magnesium 1.9 mg/dL (1.7-2.3); Osmolality Calculated 299 mOsm/kg (285-295); Potassium 4.1 mmol/L (3.5-5.1); Sodium 139 mmol/L (136-145)
[2025-06-17] MEDS: FUROsemide 10 mg/mL SDV 4mL 40 MG IVP (04:48)
--- NOTE | 2025-06-17 11:29 | P.PN_ITS ---
Subjective 2 Subjective: ECHO done today on O2 denies chest pain BP stable Vitals/I&O/Wt Last Vital Signs Temp 97.7 F 06/17/25 11:22 Pulse 75 06/17/25 11:22 Resp 16 06/17/25 11:22 BP 121/52 06/17/25 11:22 Pulse Ox 94 06/17/25 11:22 O2 Del Method Nasal Cannula 06/17/25 11:22 O2 Flow Rate 3 06/17/25 04:00 FiO2 36 06/17/25 00:57 06/16/25 06/17/25 06/17/25 22:59 06:59 14:59 Intake Total 360 / 360 240 / 240 Output Total 350 / 350 200 / 550 Balance -350 / -350 160 / -190 240 / 240 Weight last 48 hrs Weight 74.298 kg Weight 72.711 kg Weight 90.718 kg Physical Exam 2 Const: COMMON NORMALS: no acute distress and patient oriented x3 OTHER: Obese Neck/C-Spine: COMMON NORMALS: no JVD Resp: COMMON NORMALS: normal respiratory effort and No retractions EFFORT & INSPECTION: Yes able to speak in complete sentences Cardio: COMMON NORMALS: no JVD, regular rate and regular rhythm RATE: r egular rate RHYTHM: regular rhythm GI: COMMON NORMALS: Normal to inspection, nondistended, normoactive bowel sounds present Extremity: OTHER: +1 edema bilateral Neuro: COMMON NORMALS: patient oriented x3 Data 06/17/25 03:46 06/17/25 03:46 A&P Assessment and plan 1. Anemia: Appears to be chronic and her hemoglobin is at her baseline. Will continue to monitor 2. Presence of permanent cardiac pacemaker: Keep on telemetry 3. Diastolic heart failure: ECHO done IV lasix await home med rec ,family to bring medicines cards consult 4. Acute exacerbation of CHF (congestive heart failure): As above 5. Benign essential hypertension with target blood pressure below 140/90: Restart home medication once medication conciliation completed 6. Diabetes: FSBS, sign scale insulin restart home Lantus when medication reconciliation completed 7. Hypothyroidism: check TSH pending PDMP PDMP Reviewed: Not Reviewed Attestations 2 Medical Necessity Statement*: diuresis Coding Level of Care Code Acute Code for Chg Fwd Diagnoses Anemia D64.9 Presence of permanent cardiac pacemaker Z95.0 Diastolic heart failure I50.30 Acute exacerbation of CHF (congestive heart failure) I50.9 Benign essential hypertension with target blood pressure below 140/90 I10 Diabetes E11.9 Hypothyroidism E03.9
[2025-06-17 12:08] LABS: Thyroid Stimulating Hormone 4.95 uIU/mL (0.27-4.20)
--- NOTE | 2025-06-17 13:07 | P.CONIM_ITS ---
<Statement entered by Marbella Ardon MD - 06/17/25 18:58> Patient was evaluated and cared for in conjunction with an advanced practice practitioner. I personally not examined the patient but reviewed the chart and all pertinent data including imaging, telemetry, and laboratory results. I discussed the patient in detail with the advanced practice practitioner. Please see their note for complete H&P testing result and agreed upon plan of care for the patient. Providers/Reason For Consult 2 Consulting Physician/Specialty*: Dr. Ardon Reason for Consult*: Elevated troponin Requesting Physician: Dr. Taveras Attending Physician: Bonnie Taveras MD Primary Care Provider: Terence Rogers History of Present Illness History of Present Illness Vaibhav Ramsey is a 84 year old female history of atypical chest pain, A-fib, moderate to severe mitral valve regurgitation, diastolic heart failure, pacemaker placement, chronically anticoagulated, came into the emergency room yesterday with her grandson. She uses oxygen at home at 3 L nasal cannula. Her grandson stated that she began to develop shortness of breath and orthopnea that was severe and so she was brought into the emergency room by him. He lives with her and is her primary caregiver. She had been also using her albuterol inhaler more often at home. In the ER she was tachypneic on arrival. She was given a DuoNeb treatment. proBNP was 7004 and 56 and patient was given 40 mg of Lasix IV for fluid overload. Chest x-ray showed chronic changes but no new or worsening findings. She has had a previous stress test in August that was normal. She denies any recent chest pressure chest pain. Her EKG showed sinus rhythm with first-degree AV block. Right bundle branch block is present. Creatinine is 1.1. Troponin was 69?60 8.81?68.77 with delta negative. Troponin appears to be chronically elevated. At this time she states her symptoms have improved but she is still short of breath on exertion. Review of Systems 2 Narrative: Consitutional: denies fever, chills, body aches Card: Denies chest pain, palpitations, irregular heart rhythm, edema Resp: Reports shortness of breath on exertion, relieved with rest Musc: Denies extremity pain Skin: Denies rash Neuro: s/s of stroke Buzz: Denies easy bruiding/bleeding Medications/Allergies Home Medications ?Medication ?Instructions ?Recorded ?Confirmed ?Last Taken ?Type allopurinol 300 mg tablet 300 mg PO BID 07/31/1906/1710/29/23 History carbidopa 25 mg-levodopa 100 mg 1 tab PO BID 07/31/19 06/17/25 10/29/23 History tablet cyanocobalamin (vitamin B-12) 1,000 mcg IM Q30D 06/17/25 10/24/23 History 1,000 mcg/mL injection solution oxycodone-acetaminophen 10 mg-325 1 tab PO Q6H PRN Bridgette n, Mild 07/31/19 06/17/25 11/09/22 History mg tablet pramipexole 0.5 mg tablet 2 mg PO BEDTIME 07/31/1903/0410/28/23 History nitroglycerin 0.4 mg sublingual 0.4 mg sublingual Q5M PRN chest 12/10/19 06/17/25 07/06/20 20:00 Rx tablet pain 30 days #30 tabs post mastectomy Bras #4 ea 01/14/22 06/17/25 Unkn own Rx apixaban 2.5 mg tablet 2.5 mg PO BID #90 tabs 03/1606/17/25 10/29/23 Rx levothyroxine 100 mcg tablet 100 mcg PO DAILY 08/30/22 06/17/25 10/29/23 History insulin glargine 100 unit/mL 20 unit SUBCUT BEDTIME 06/17/25 10/28/23 History subcutaneous solution (Lantus U-100 Insulin) zinc acetate 25 mg (zinc) capsule 50 mg PO DAILY 09/2506/17/25 10/29/23 History baclofen 5 mg tablet 5 mg PO BID PRN Spasms 10/2806/17/25 10/29/23 History sertraline 100 mg tablet 100 mg PO DAILY 10/29/2303/0410/29/23 History pantoprazole 40 mg tablet,delayed 40 mg PO DAILY 11/0406/17/25 Unknown History release metoprolol tartrate 25 mg tablet 25 mg PO BID 08/15/24 06/17/25 Unknown History ascorbic acid (vitamin C) 500 mg 500 mg PO DAILY 06/1706/17/25 Unknown History tablet (Vitamin C) docusate sodium 100 mg capsule 100 mg PO BID 06/17/25 06/17/25 Unknown History (Colace) fluticasone propionate 50 2 spray intranasal BEDTIME 1 08/18/24 06/17/25 Unknown History mcg/actuation nasal spray,suspension furosemide 40 mg tablet (Lasix) 40 mg PO BID 06/17/25 06/17/25 Unknown History isosorbide mononitrate 120 mg 120 mg PO DAILY 06/17/25 06/17/25 Unknown History tablet,extended release 24 hr meclizine 25 mg tablet 25 mg PO TID PRN Dizziness 1 08/18/24 06/17/25 Unknown History ondansetron HCl 4 mg tablet 4 mg PO Q6H PRN Nausea 03/0406/17/25 Unknown History pravastatin 40 mg tablet 40 mg PO BEDTIME 06/17/25 Unknown History spironolactone 25 mg tablet 25 mg PO DAILY 06/17/25 Unknown History Allergies Allergy/AdvReac Type Severity Reaction Status Date / Time codeine Allergy patient Verified 02/06/25 08:09 doesn't recall flecainide Allergy severe Verified 02/06/25 08:09 vomiting garlic Allergy Unknown Verified 02/06/25 08:09 Iodinated Contrast Media Allergy renal Verified 02/06/25 08:09 disease naproxen Allergy renal Verified 02/06/25 08:09 disease Penicillins Allergy hives Verified 02/06/25 08:09 shellfish derived Allergy unknown Verified 02/06/25 08:09 Sulfa (Sulfonamide Allergy itching Verified 02/06/25 08:09 Antibiotics) tramadol AdvReac makes me Verified 02/06/25 08:09 crazy Current Medications Generic Name Dose Route Start Last Admin Trade Name Freq PRN Reason Stop Dose Admin Insulin Human Lispro 0 unit 06/16/25 21:00 06/16/25 22:07 Insulin Lispro 100 Unit/1 Ml SUBCUT Not Given BEDTIME GONZALO Protocol Insulin Human Lispro 0 unit 06/16/25 21:00 06/17/25 11:31 Insulin Lispro 100 Unit/1 Ml SUBCUT Not Given WM&BEDTIME GONZALO Protocol PFSH Acute 2 PFSH: Medical History (Updated 06/17/25 @ 13:19 by Moon Antoine NP) Diastolic heart failure Intermittent atrial fibrillation Ascitic fluid Abdominal distention Clear vaginal discharge DNR (do not resuscitate) MATILDA (acute kidney injury) MATILDA (acute kidney injury) Acute UTI Atrial fibrillation Sinus node dysfunction Obstructive sleep apnea Gastritis and duodenitis Enterovirus infection, unspecified CHF exacerbation Community acquired pneumonia Fracture of distal end of right fibula Lung nodule, solitary Restrictive lung disease Restrictive lung disease Transaminitis Mild. Most likely due to passive congestion due her CHF. Lumbar stenosis with neurogenic claudication Difficulty in swallowing High anion gap metabolic acidosis Bilateral renal cysts On multiple imaging modalities all appear simple. No further work-up recommended December 2020 Pacemaker Right bundle branch block Supraventricular tachycardia COVID-19 Elevated troponin Chest pain Chronic respiratory failure with hypoxia and hypercapnia GERD (gastroesophageal reflux disease) Atypical chest pain Cardiac [place] [address] Monaco. She had no significant coronary artery disease at that time. Chronic kidney disease Osteoarthritis Syncope Chronic kidney disease -baseline Cr appears to be around 2-2.3 - Symptomatic bradycardia UTI (urinary tract infection) - Bradycardia Anemia -on iron supplementation COPD (chronic obstructive pulmonary disease) Uses 3 L [id number] and BiPAP at night Gout Former smoker Normal coronary angiogram Cardiac angiogram done in September 2015 Chronic back pain History of pulmonary embolism -is on AC with Eliquis Hypothyroidism Type 2 diabetes mellitus Hypertension Diastolic heart failure Chronic anticoagulation Paroxysmal A-fib Surgical History Postoperative state Status post lumbar laminectomy H/O right mastectomy History of tonsillectomy H/O hernia repair H/O colonoscopy 2019 H/O esophagogastroduodenoscopy (~04/2020) 2020 H/O left knee surgery Tubal ligation status History of cholecystectomy Family History Father CAD (coronary artery disease) Family history of premature coronary artery disease Hypertension Mother Cancer Chronic kidney disease (CKD) Hypertension Sister Hyperlipidemia Hypertension Daughter No problems noted. Other Diabetes Social History Smoking and tobacco/nicotine status: former use of tobacco/nicotine Quit status (tobacco/nicotine): has quit using Year quit tobacco: 1971 - 1PPD x 25 Years Alcohol intake: never Substance/Drug Use: never Caregiver/support person: Yes Lives independently: Yes Household members: family Housing: House Marital status: / Current occupational status: retired Do you think of yourself as: Straight/Heterosexual Vitals/I&O/Wt Last Vital Signs Temp 97.7 F 06/17/25 11:22 Pulse 75 06/17/25 11:22 Resp 16 06/17/25 11:22 BP 121/52 06/17/25 11:22 Pulse Ox 94 06/17/25 11:22 O2 Del Method Nasal Cannula 06/17/25 11:22 O2 Flow Rate 3 06/17/25 04:00 FiO2 36 06/17/25 00:57 06/16/25 06/17/25 06/17/25 22:59 06:59 14:59 Intake Total 360 / 360 240 / 240 Output Total 350 / 350 200 / 550 Balance -350 / -350 160 / -190 240 / 240 Weight last 48 hrs Weight 163 lb 12.8 oz Weight 160 lb 4.8 oz Weight 200 lb Physical Exam 2 Narrative: General: No apparent distress Muskuloskeletal: Full ROM Respiratory: Normal respiratory effort, bilateral anterior and posterior lower lobes coarse crackles Cardio: No JVD, regular rate, regular rhythm, S1 S2 normal, grade III/ murmur mitral space, peripheral pulses 2+ radial palpated bilaterally GI: Normal to inspection, nondistended Extremities: Full ROM, normal, normal capillary refill, no cyanosis, 1+ nonpitting edema bilateral lower extremities Neuro: Alert and oriented x4, no focal motor deficits Psych: Affect normal, denies suicidal ideation, mental status grossly normal Skin: No rashes or lesions noted, no wounds Data 06/17/25 03:46 06/17/25 03:46 A&P Assessment and plan 1. Elevated troponin: 2. Acute on chronic diastolic heart failure: 3. Intermittent atrial fibrillation: 4. Moderate to severe mitral regurgitation: Plan: Patient has slightly elevated troponin without chest pain or acute EKG changes. Stress test in August of this year was wnl. This is most likely elevated due to demand ischemia. Will continue to monitor for s/s such as chest pain or EKG changes. Continue Isosorbide. Patient appears to be in diastolic heart failure exacerbation. Would recommend increasing Lasix to 60 mg IV TID. Titrate to patient's response, strict I&O, and monitor renal function. Patient has hx of moderate to severe mitral valve regug. EF in August was normal. Continue medical therapy with diuresis, bp control. Patient has xh of afib. Continue Anticoagulant Eliquis 2.5 BID for stroke prevention. Continue with diuresis and titrate to patient's response. Thank you, Dr. Taveras, for allowing us to care for this very pleasant 84 year old female. PDMP PDMP Reviewed: Not Reviewed Consult Attestations 2 Medical Necessity Statement: Deferred to primary. Coding Level of Care Code Acute Code for Chg Fwd Diagnoses Elevated troponin R79.89 Acute on chronic diastolic heart failure I50.33 Heart failure chronicity: acute on chronic Intermittent atrial fibrillation I48.0 Moderate to severe mitral regurgitation I34.0
[2025-06-17] MEDS: carbidopa-levodopa 25-100mg Tablet 1 EACH PO (17:54)
[2025-06-17] MEDS: FUROsemide 10 mg/mL SDV 4mL 60 MG IVP (17:54)
[2025-06-17] MEDS: APIXABAN 2.5 MG TABLET PO (17:55)
--- NOTE | 2025-06-17 18:32 | XRR_ITS ---
PROCEDURE INFORMATION: Exam: XR Abdomen Exam date and time: 06/17/2025 8:07 PM Age: 84 years old Clinical indication: Bloating; Prior surgery; Surgery date: 6+ months; Surgery type: Pacer; Additional info: Distension TECHNIQUE: Imaging protocol: Radiologic exam of the abdomen. Views: Frontal supine view of the abdomen. 1 View. COMPARISON: CT abdomen pelvis wo con [id number] 06/16/2025 5:16 PM FINDINGS: Gastrointestinal tract: Normal. No bowel dilation. Organs: Questionable fibroid uterus. Bones/joints: Mild degenerative changes of lumbar vertebral bodies. XR/XR abdomen 1V* [id number] IMPRESSION: No definite acute findings.
--- NOTE | 2025-06-17 18:35 | USCV_ITS ---
Vaibhav Ramsey Age: 84 Gender: F : 1940 Exam Date: 06/17/2025 09:19 Ordering Phys: Bonnie Taveras MD Technologist: Exam Location: [facility] – [place] Indication: cp sob BP: 132 / 75 HR: 69 Rhythm: Sinus Technical Quality: Adequate MEASUREMENTS (Male / Female) Normal Values 2D ECHO LV Diastolic Diameter PLAX 5.0 cm 4.2 - 5.9 / 3.9 - 5.3 cm IVS Diastolic Thickness 1.5 cm 0.6 - 1.0 / 0.6 - 0.9 cm IVS Systolic Thickness 2.3 cm LVPW Diastolic Thickness 1.7 cm 0.6 - 1.0 / 0.6 - 0.9 cm LVPW Systolic Thickness 1.7 cm LVOT Diameter 2.0 cm LV Ejection Fraction 2D Teich 78.2 % LV Ejection Fraction MOD 4C 66.9 % LV Ejection Fraction MOD 2C 57.7 % LV Ejection Fraction 2C AL 58.5 % LA Diameter 4.2 cm RA Systolic Volume 4C AL 101.9 ml RA Systolic Volume 4C MOD 97.1 ml LA Sys Volume AL 164.9 cm cubed LA Sys Volume Index AL 88.7 cm cubed/m squared Aorta at Sinotubular Diameter 2.6 cm IVC Diameter 2.2 cm M-MODE LA Ao Ratio MM 1.7 AV Cusp Separation MM 1.4 cm DOPPLER AV Peak Velocity 199.0 cm/s LVOT Peak Velocity 102.0 cm/s AV Area Cont Eq vti 1.8 cm squared AV Area Cont Eq pk 1.6 cm squared MV Peak Velocity 266.0 cm/s MV Area PHT 2.7 cm squared Mitral E to A Ratio 1.4 TV Peak Velocity 268.5 cm/s TR Peak Velocity 417.0 cm/s TR Peak Gradient 69.6 mmHg TV Peak E Velocity 203.0 cm/s PV Peak Velocity 104.0 cm/s FINDINGS Left Ventricle Normal left ventricular size, systolic function and wall thickness, with no regional wall motion abnormalities. Left ventricular ejection fraction is estimated at 60 %. Flattened septum in diastole consistent with right ventricle volume overload. Flattened septum in systole consistent with right ventricle pressure overload. Grade II/IV diastolic dysfunction, moderately elevated filling pressures. Right Ventricle Normal right ventricular size and systolic function. Right Atrium Normal right atrial size. Left Atrium Normal left atrial size. IA Septum Normal appearance of the interatrial septum. Mitral Valve Severely thickened mitral valve. No mitral valve stenosis. Severe mitral valve regurgitation. Aortic Valve Moderate aortic valve calcification. Mild aortic valve stenosis, mean gradient 7.5 mmHg, FALLON 1.8 cm squared. Trace aortic valve regurgitation. Tricuspid Valve Moderate tricuspid valve regurgitation. Pulmonic Valve Normal pulmonic valve structure. No pulmonic valve stenosis or regurgitation. Pericardium No pericardial effusion. Aorta Normal diameter of the aortic root and ascending thoracic aorta. IVC Normal IVC diameter. CONCLUSIONS Normal left ventricular size, systolic function and wall thickness, with no regional wall motion abnormalities. Left ventricular ejection fraction is estimated at 60 %. Flattened septum in diastole consistent with right ventricle volume overload. Flattened septum in systole consistent with right ventricle pressure overload. Grade II/IV diastolic dysfunction, moderately elevated filling pressures. Moderate aortic valve calcification. Mild aortic valve stenosis, mean gradient 7.5 mmHg, [place] 1.8 cm squared. Trace aortic valve regurgitation. Moderate tricuspid valve regurgitation. Severely thickened mitral valve. No mitral valve stenosis. Severe mitral valve regurgitation. There is no pericardial effusion. Right atrial pressure is around 10 mm of mercury. Marbella Ardon MD (Electronically Signed) Final Date: 17 June 2025 19:30 S
[2025-06-17] MEDS: PRAMIPEXOLE 0.5 MG TABLET 2 MG PO (20:31)
[2025-06-17] MEDS: ATORVASTATIN 20 MG TABLET PO (20:31)
[2025-06-17] MEDS: insulin glargine 100 units/1 mL 20 UNIT SUBCUT (20:31)
[2025-06-17 21:22] LABS: Lipase 32 U/L (13-60)
[2025-06-18] VITALS (9 sets, daily range): BP systolic 83–130; BP diastolic 53–80; PULSE 59–73; RESP 16–22; TEMP 36.3–36.7; O2SAT 91–99; BMI 30.9
[2025-06-18 05:14] LABS: Glucose Urine UA Negative (Normal); Nitrate Urine Negative (Negative); Specific Gravity, Urine 1.016 (1.005-1.030)
[2025-06-18 05:17] LABS: Add Urine Microscopic? YES
[2025-06-18] MEDS: APIXABAN 2.5 MG TABLET PO ×2 (05:42→16:48)
[2025-06-18] MEDS: FUROsemide 10 mg/mL SDV 4mL 60 MG IVP (05:42)
[2025-06-18] MEDS: carbidopa-levodopa 25-100mg Tablet 1 EACH PO ×2 (05:43→16:48)
[2025-06-18 05:46] LABS: UA Slide Review UA Slide Review Perf
[2025-06-18 06:02] LABS: Hematocrit 34.7 % (36-47); Hemoglobin 10.50 g/dL (11.27-16.99); Mean Corpuscular HGB Conc 30.3 g/dL (30-55); Mean Corpuscular Hemoglobin 29.3 pg (27-33); Mean Corpuscular Volume 96.9 fl (85-98); Nucleated Red Blood Cells % 0 %; Platelet Count 146 10^3/cmm (157-399); Red Blood Count 3.58 10^6/uL (3.85-5.65); White Blood Count 7.56 10^3/uL (3.29-11.43)
[2025-06-18 06:24] LABS: Anion Gap 14.0 (5-19); Blood Urea Nitrogen 49 mg/dL (8-23); Calcium 8.9 mg/dL (8.5-10.5); Carbon Dioxide 27 mmol/L (22-29); Chloride 102 mmol/L (98-107); Glucose 74 mg/dL (65-115); Magnesium 2.1 mg/dL (1.7-2.3); Osmolality Calculated 298 mOsm/kg (285-295); Potassium 5.0 mmol/L (3.5-5.1); Sodium 138 mmol/L (136-145)
--- NOTE | 2025-06-18 10:53 | PC.CHAP ---
Pastoral Care Encounter/Spiritual Assessment Type of Contact [] Declined residential door unit installer visit [] Patient/Family/Request visit [] Outpatient visit [] Follow-up visit [] Physician referral [] Code/Alert [x] Routine visit [] Staff referral [] Actively dying [] Patient sleeping [] Family support [] [] Out of room [] Palliative care [] [] Receiving care in room [] Pre-surgical visit [] Trauma [] Long length of stay [] ICU visit [] Other: Relational/Emotional Strength [x] Patient feels connected with others/family/visitors/staff [] Distress [] Loneliness/isolation [] Abandonment Spirituality of Patient [x] Person of Alexa [] Attends Episcopal of their Alexa [x] Believes in Prayer [] Reads Bible or Yarsanism materials [] There are Spiritual issues to be addressed Acupressurist Interventions [x] Prayer [x] Active listening [x] Non-anxious presence [x] Spiritual/emotional support [] Crisis/trauma care [] Spiritual counseling [] Bereavement support [] Provided bereavement packet [] Provided Bible/devotional materials [] Provided toy/stuffed animal, coloring book to patient or family member [] Provided Communion [] Anointing/[place] [] Salvation [x] Completed spiritual assessment [] Other: Impact on Illness or Injury [] Angry [] Fearful [] Anxious [] Often cries [] Exhaustion [] Unable to work [] Unable to attend roman catholic [] Unable to walk/stand [] Unable to read [] Unable to drive [] Unable to eat/drink [] Unable to sleep [] Unable to be with family [] Patient intubated [] Other: Summary Time spent with patient 5 min
--- NOTE | 2025-06-18 12:04 | P.PN_ITS ---
Subjective 2 Subjective: breathing better denies chest pain grandson at bedside Vitals/I&O/Wt Last Vital Signs Temp 97.4 F L 06/18/25 11:36 Pulse 61 06/18/25 11:36 Resp 18 06/18/25 11:36 BP 126/72 06/18/25 11:36 Pulse Ox 98 06/18/25 11:36 O2 Del Method Nasal Cannula 06/18/25 11:36 O2 Flow Rate 4 06/18/25 04:00 FiO2 36 06/17/25 20:36 06/17/25 06/18/25 06/18/25 22:59 06:59 14:59 Intake Total 600 / 960 480 / 1440 120 / 120 Output Total 400 / 600 75 / 675 150 / 150 Balance 200 / 360 405 / 765 -30 / -30 Weight last 48 hrs Weight 74.162 kg Weight 74.298 kg Weight 72.711 kg Weight 90.718 kg Physical Exam 2 Const: COMMON NORMALS: no acute distress and patient oriented x3 OTHER: Obese Neck/C-Spine: COMMON NORMALS: no JVD Resp: COMMON NORMALS: normal respiratory effort and No retractions EFFORT & INSPECTION: Yes able to speak in complete sentences Cardio: COMMON NORMALS: no JVD, regular rate and regular rhythm RATE: r egular rate RHYTHM: regular rhythm GI: COMMON NORMALS: Normal to inspection, nondistended, normoactive bowel sounds present Extremity: OTHER: +1 edema bilateral Neuro: COMMON NORMALS: patient oriented x3 Data 06/18/25 05:50 06/18/25 05:50 A&P Assessment and plan 1. Anemia: Appears to be chronic and her hemoglobin is at her baseline. Will continue to monitor 2. Presence of permanent cardiac pacemaker: Keep on telemetry 3. Diastolic heart failure: ECHO done IV lasix await home med rec ,family to bring medicines cards consult 4. Acute exacerbation of CHF (congestive heart failure): As above 5. Benign essential hypertension with target blood pressure below 140/90: Restart home medication once medication conciliation completed 6. Diabetes: FSBS, sign scale insulin restart home Lantus 7. Hypothyroidism: TSH mildly elevated PDMP PDMP Reviewed: Not Reviewed Attestations 2 Medical Necessity Statement*: diuresis, monitoring labs Coding Level of Care Code Acute Code for Chg Fwd Diagnoses Anemia D64.9 Presence of permanent cardiac pacemaker Z95.0 Diastolic heart failure I50.30 Acute exacerbation of CHF (congestive heart failure) I50.9 Benign essential hypertension with target blood pressure below 140/90 I10 Diabetes E11.9 Hypothyroidism E03.9
--- NOTE | 2025-06-18 14:08 | P.PN_ITS ---
<Statement entered by Marbella Ardon MD - 06/18/25 16:24> Patient was evaluated and cared for in conjunction with an advanced practice practitioner. I personally examined the patient and reviewed the chart and all pertinent data including imaging, telemetry, and laboratory results. I discussed the patient in detail with the advanced practice practitioner. Please see their note for complete H&P testing result and agreed upon plan of care for the patient. Subjective 2 Subjective: Patient still short of breath on exertion. Denies chest pain. Creatinine has slightly increased. Vitals/I&O/Wt Last Vital Signs Temp 97.4 F L 06/18/25 11:36 Pulse 61 06/18/25 11:36 Resp 18 06/18/25 11:36 BP 126/72 06/18/25 11:36 Pulse Ox 98 06/18/25 11:36 O2 Del Method Nasal Cannula 06/18/25 11:36 O2 Flow Rate 4 06/18/25 04:00 FiO2 36 06/17/25 20:36 06/17/25 06/18/25 06/18/25 22:59 06:59 14:59 Intake Total 600 / 960 480 / 1440 480 / 480 Output Total 400 / 600 75 / 675 150 / 150 Balance 200 / 360 405 / 765 330 / 330 Weight last 48 hrs Weight 163 lb 8 oz Weight 163 lb 12.8 oz Weight 160 lb 4.8 oz Weight 200 lb Physical Exam 2 Narrative: General: No apparent distress Muskuloskeletal: Full ROM Respiratory: Normal respiratory effort, bilateral anterior and posterior lower lobes coarse crackles Cardio: No JVD, regular rate, regular rhythm, S1 S2 normal, grade III/ murmur mitral space, peripheral pulses 2+ radial palpated bilaterally GI: Normal to inspection, nondistended Extremities: Full ROM, normal, normal capillary refill, no cyanosis, 1+ nonpitting edema bilateral lower extremities Neuro: Alert and oriented x4, no focal motor deficits Psych: Affect normal, denies suicidal ideation, mental status grossly normal Skin: No rashes or lesions noted, no wounds Data 06/18/25 05:50 06/18/25 05:50 A&P Assessment and plan 1. Elevated troponin: 2. Acute on chronic diastolic heart failure: 3. Intermittent atrial fibrillation: 4. Moderate to severe mitral regurgitation: Plan: Patient has normal EF at 60%. Mitral valve regurgitation is now severe. Diuresis on hold as patient has had an increase in creatinine to 1.6. At some point, patient may need outpatient referral for mitraclip. For now, see how patient's renal function is and possibly switch her to PO lasix tomorrow. PDMP PDMP Reviewed: Not Reviewed Attestations 2 Medical Necessity Statement*: Deferred to primary Coding Level of Care Code Acute Code for Chg Fwd Diagnoses Elevated troponin R79.89 Acute on chronic diastolic heart failure I50.33 Heart failure chronicity: acute on chronic Intermittent atrial fibrillation I48.0 Moderate to severe mitral regurgitation I34.0
[2025-06-18] MEDS: oxyCODONE-APAP 10-325 mg Tablet 1 TAB PO (15:27)
[2025-06-18] MEDS: ondansetron hcl ODT 4 mg Tab PO (16:49)
[2025-06-18] MEDS: PRAMIPEXOLE 0.5 MG TABLET 2 MG PO (20:39)
[2025-06-18] MEDS: insulin glargine 100 units/1 mL 20 UNIT SUBCUT (20:39)
[2025-06-18] MEDS: ATORVASTATIN 20 MG TABLET PO (20:41)
[2025-06-19] VITALS (9 sets, daily range): BP systolic 97–130; BP diastolic 60–75; PULSE 60–77; RESP 16–18; TEMP 36.3–36.7; O2SAT 91–98; BMI 30.9
[2025-06-19] MEDS: APIXABAN 2.5 MG TABLET PO ×2 (05:51→16:55)
[2025-06-19] MEDS: carbidopa-levodopa 25-100mg Tablet 1 EACH PO ×2 (05:51→16:55)
[2025-06-19 06:03] LABS: Hematocrit 37.8 % (36-47); Hemoglobin 11.30 g/dL (11.27-16.99); Mean Corpuscular HGB Conc 29.9 g/dL (30-55); Mean Corpuscular Hemoglobin 29.4 pg (27-33); Mean Corpuscular Volume 98.4 fl (85-98); Nucleated Red Blood Cells % 0 %; Platelet Count 165 10^3/cmm (157-399); Red Blood Count 3.84 10^6/uL (3.85-5.65); White Blood Count 8.03 10^3/uL (3.29-11.43)
[2025-06-19 06:22] LABS: Anion Gap 16.9 (5-19); Blood Urea Nitrogen 61 mg/dL (8-23); Calcium 8.8 mg/dL (8.5-10.5); Carbon Dioxide 25 mmol/L (22-29); Chloride 101 mmol/L (98-107); Glucose 69 mg/dL (65-115); Magnesium 2.4 mg/dL (1.7-2.3); Osmolality Calculated 300 mOsm/kg (285-295); Potassium 5.9 mmol/L (3.5-5.1); Sodium 137 mmol/L (136-145)
[2025-06-19] MEDS: oxyCODONE-APAP 10-325 mg Tablet 1 TAB PO (07:31)
[2025-06-19] MEDS: ondansetron hcl ODT 4 mg Tab PO ×2 (07:32→17:34)
--- NOTE | 2025-06-19 10:24 | ECG_ITS ---
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 Measurements Intervals [place] Rate: 62 P: 0 CO: 0 QRS: -74 QRSD: 187 T: 94 QT: 508 QTc: 518 Interpretive Statements ELECTRONIC VENTRICULAR PACEMAKER ABNORMAL RHYTHM ECG Compared to ECG 06/16/2025 22:31:37 Sinus rhythm no longer present First degree AV block no longer present Right-axis deviation no longer present Right bundle-branch block no longer present Electronically Signed On 06-20-2025 17:29:45 STOCK ORDER LISTER by Vanessa Gregorio M.D. [email or web address]
[2025-06-19 12:01] LABS: Potassium 6.8 mmol/L (3.5-5.1)
[2025-06-19] MEDS: calcium gluconate 0.9% NaCL 1 GM/50 ML PREMIX IV (12:30)
--- NOTE | 2025-06-19 12:33 | P.PN_ITS ---
Subjective 2 Subjective: .Reports feeling tired today noted to be elevated. Reading she states is stable. Grandson at bedside Vitals/I&O/Wt Last Vital Signs Temp 98.0 F 06/19/25 11:05 Pulse 60 06/19/25 11:05 Resp 16 06/19/25 11:05 BP 100/60 06/19/25 11:05 Pulse Ox 98 06/19/25 11:05 O2 Del Method Nasal Cannula 06/19/25 11:05 O2 Flow Rate 3 06/19/25 11:05 FiO2 36 06/17/25 20:36 06/18/25 06/19/25 06/19/25 22:59 06:59 14:59 Intake Total 360 / 840 240 / 240 Output Total 600 / 750 Balance -240 / 90 240 / 240 Weight last 48 hrs Weight 74.298 kg Weight 74.162 kg Physical Exam 2 Const: COMMON NORMALS: no acute distress and patient oriented x3 OTHER: Obese Neck/C-Spine: COMMON NORMALS: no JVD Resp: COMMON NORMALS: normal respiratory effort and No retractions EFFORT & INSPECTION: Yes able to speak in complete sentences Cardio: COMMON NORMALS: no JVD, regular rate and regular rhythm RATE: r egular rate RHYTHM: regular rhythm GI: COMMON NORMALS: Normal to inspection, nondistended, normoactive bowel sounds present Neuro: COMMON NORMALS: patient oriented x3 Data 06/19/25 05:48 06/19/25 11:07 A&P Assessment and plan 1. Anemia: Appears to be chronic and her hemoglobin is at her baseline. Will continue to monitor 2. Presence of permanent cardiac pacemaker: Keep on telemetry 3. Diastolic heart failure: ECHO done IV lasix await home med rec ,family to bring medicines cards consult 4. Acute exacerbation of CHF (congestive heart failure): As above 5. Benign essential hypertension with target blood pressure below 140/90: Restart home medication once medication conciliation completed 6. Diabetes: FSBS, sign scale insulin restart home Lantus 7. Hypothyroidism: TSH mildly elevated 8. Hyperkalemia: recheck labs, calcium gluconate, ekg, kayaxalate PDMP PDMP Reviewed: Not Reviewed Attestations 2 Medical Necessity Statement*: monitoring electrolytes Coding Level of Care Code 95428 Diagnoses Anemia D64.9 Presence of permanent cardiac pacemaker Z95.0 Diastolic heart failure I50.30 Acute exacerbation of CHF (congestive heart failure) I50.9 Benign essential hypertension with target blood pressure below 140/90 I10 Diabetes E11.9 Hypothyroidism E03.9 Hyperkalemia E87.5
--- NOTE | 2025-06-19 13:05 | P.PN_ITS ---
<Statement entered by Marbella Ardon MD - 06/19/25 18:17> Patient was evaluated and cared for in conjunction with an advanced practice practitioner. I personally examined the patient and reviewed the chart and all pertinent data including imaging, telemetry, and laboratory results. I discussed the patient in detail with the advanced practice practitioner. Please see their note for complete H&P testing result and agreed upon plan of care for the patient. Patient is overall feeling tired and fatigued. Potassium has jumped up from 5.9-6.8 it was rechecked GENERAL: Patient is alert, awake and oriented x3. Patient appears to be fatigued and somnolent but pretty coherent HEART: Regular S1 and S2. No murmur, rub or gallop. LUNGS: Left lower lobe inspiratory crackles. CENTRAL NERVOUS SYSTEM: Grossly nonfocal. EXTREMITIES: Lower extremities with out edema bilaterally. Severe mitral valve regurgitation Acute on chronic diastolic heart failure Hyperkalemia Discontinue spironolactone it was done yesterday Calcium gluconate Insulin/glucose Kayexalate IV Lasix can be also given I have discussed this options, hospitalist team is on board for hyperkalemia management. Subjective 2 Subjective: Patient still reports shortness of breath on exertion. Creatinine has increased to 2.5 and potassium to 5.9. Her diuretics and potassium have been on hold. Vitals/I&O/Wt Last Vital Signs Temp 98.0 F 06/19/25 11:05 Pulse 60 06/19/25 11:05 Resp 16 06/19/25 11:05 BP 100/60 06/19/25 11:05 Pulse Ox 98 06/19/25 11:05 O2 Del Method Nasal Cannula 06/19/25 11:05 O2 Flow Rate 3 06/19/25 11:05 FiO2 36 06/17/25 20:36 06/18/25 06/19/25 06/19/25 22:59 06:59 14:59 Intake Total 360 / 840 240 / 240 Output Total 600 / 750 Balance -240 / 90 240 / 240 Weight last 48 hrs Weight 163 lb 12.8 oz Weight 163 lb 8 oz Physical Exam 2 Narrative: General: No apparent distress Muskuloskeletal: Full ROM Respiratory: Normal respiratory effort, right clear, left posterior lower lobes coarse crackles Cardio: No JVD, regular rate, regular rhythm, S1 S2 normal, grade III/ murmur mitral space, peripheral pulses 2+ radial palpated bilaterally GI: Normal to inspection, nondistended Extremities: Full ROM, normal, normal capillary refill, no cyanosis, 1+ nonpitting edema bilateral lower extremities Neuro: Alert and oriented x4, no focal motor deficits Psych: Affect normal, denies suicidal ideation, mental status grossly normal Skin: No rashes or lesions noted, no wounds Data 06/19/25 05:48 06/19/25 11:07 A&P Assessment and plan 1. Elevated troponin: 2. Acute on chronic diastolic heart failure: 3. Intermittent atrial fibrillation: 4. Moderate to severe mitral regurgitation: Plan: Patient has normal EF at 60%. Mitral valve regurgitation is now severe. May need mitraclip in the future. Diuresis on hold as patient has had an increase in creatinine to 2.5. Potassium was 5.9. Repeat showed 6.8. Discussed with the hospitalist Dr. Taveras. Plan is for calcium gluconate, kayexalate as well. Continue to monitor patient response to this. PDMP PDMP Reviewed: Not Reviewed Attestations 2 Medical Necessity Statement*: Deferred to primary. Coding Level of Care Code Acute Code for Chg Fwd Diagnoses Elevated troponin R79.89 Acute on chronic diastolic heart failure I50.33 Heart failure chronicity: acute on chronic Intermittent atrial fibrillation I48.0 Moderate to severe mitral regurgitation I34.0
[2025-06-19 17:05] LABS: Potassium 6.8 mmol/L (3.5-5.1)
[2025-06-19] MEDS: PRAMIPEXOLE 0.5 MG TABLET 2 MG PO (21:11)
[2025-06-19] MEDS: ATORVASTATIN 20 MG TABLET PO (21:11)
[2025-06-19] MEDS: insulin glargine 100 units/1 mL 20 UNIT SUBCUT (21:12)
[2025-06-20] VITALS (10 sets, daily range): BP systolic 90–110; BP diastolic 53–64; PULSE 60–72; RESP 14–18; TEMP 36.4–36.7; O2SAT 93–100
[2025-06-20] MEDS: oxyCODONE-APAP 10-325 mg Tablet 1 TAB PO ×2 (00:05→08:28)
[2025-06-20 01:11] LABS: Anion Gap 16.7 (5-19); Blood Urea Nitrogen 71 mg/dL (8-23); Calcium 8.6 mg/dL (8.5-10.5); Carbon Dioxide 25 mmol/L (22-29); Chloride 99 mmol/L (98-107); Glucose 115 mg/dL (65-115); Osmolality Calculated 302 mOsm/kg (285-295); Potassium 5.7 mmol/L (3.5-5.1); Sodium 135 mmol/L (136-145)
[2025-06-20] MEDS: carbidopa-levodopa 25-100mg Tablet 1 EACH PO ×2 (04:58→16:56)
[2025-06-20] MEDS: APIXABAN 2.5 MG TABLET PO ×2 (04:58→16:56)
[2025-06-20 06:02] LABS: Hematocrit 34.0 % (36-47); Hemoglobin 10.40 g/dL (11.27-16.99); Mean Corpuscular HGB Conc 30.6 g/dL (30-55); Mean Corpuscular Hemoglobin 29.8 pg (27-33); Mean Corpuscular Volume 97.4 fl (85-98); Nucleated Red Blood Cells % 0 %; Platelet Count 173 10^3/cmm (157-399); Red Blood Count 3.49 10^6/uL (3.85-5.65); White Blood Count 8.84 10^3/uL (3.29-11.43)
[2025-06-20 06:16] LABS: Blood Urea Nitrogen 72 mg/dL (8-23); Calcium 8.3 mg/dL (8.5-10.5); Chloride 99 mmol/L (98-107); Potassium 5.7 mmol/L (3.5-5.1); Sodium 136 mmol/L (136-145)
[2025-06-20 06:40] LABS: Alanine Aminotransferase 19 U/L (0-33); Albumin Level 3.3 g/dL (3.5-5.2); Alkaline Phosphatase 240 U/L (35-105); Anion Gap 19.7 (5-19); Aspartate Amino Transferase 154 U/L (0-32); Carbon Dioxide 23 mmol/L (22-29); Globulin 2.9 g/dL (1.3-4.6); Glucose 101 mg/dL (65-115); Osmolality Calculated 303 mOsm/kg (285-295); Total Protein 6.2 g/dL (6.6-8.7)
--- NOTE | 2025-06-20 15:17 | P.PN_ITS ---
<Statement entered by Marbella Ardon MD - 06/21/25 16:00> Patient was evaluated and cared for in conjunction with an advanced practice practitioner. I personally examined the patient and reviewed the chart and all pertinent data including imaging, telemetry, and laboratory results. I discussed the patient in detail with the advanced practice practitioner. Please see their note for complete H&P testing result and agreed upon plan of care for the patient. Worsening of renal function Denies any shortness of breath but feel overly fatigued GENERAL: Patient is alert, awake and oriented x3. HEART: Regular S1 and S2. No murmur, rub or gallop. LUNGS: Inspiratory bilateral crackle in the basal segment CENTRAL NERVOUS SYSTEM: Grossly nonfocal. EXTREMITIES: Lower extremities with out edema bilaterally. Assessment and plan COPD exacerbation with respiratory distress Possible pulmonary hypertension Acute on chronic diastolic heart failure Severe mitral valve regurgitation Moderate to severe tricuspid valve regurgitation Acute on chronic kidney injury Hyperkalemia Mild aortic valve stenosis Diuretics and Aldactone was stopped High potassium level was treated as per protocol by hospitalist Continue to monitor. Continue oxygen Subjective 2 Subjective: Patient being seen this morning. States she does not feel too well. Still has some shortness of breath on exertion. Crackles bilateral posterior lower lobes present. Renal function has declined and creatinine is now 3.1 BUN 72 potassium is better at 5.7 after patient was given Kayexalate. Vitals/I&O/Wt Last Vital Signs Temp 97.5 F L 06/20/25 07:28 Pulse 60 06/20/25 11:35 Resp 17 06/20/25 11:35 BP 104/57 06/20/25 11:35 Pulse Ox 100 06/20/25 11:35 O2 Del Method Nasal Cannula 06/20/25 11:35 O2 Flow Rate 3 06/20/25 11:35 FiO2 36 06/17/25 20:36 06/20/25 06/20/25 06/20/25 06:59 14:59 22:59 Intake Total 240 / 240 Balance 240 / 240 Weight last 48 hrs Weight 162 lb 2 oz Weight 163 lb 12.8 oz Physical Exam 2 Narrative: General: No apparent distress Muskuloskeletal: Full ROM Respiratory: Normal respiratory effort, right clear, left posterior lower lobes coarse crackles Cardio: No JVD, regular rate, regular rhythm, S1 S2 normal, grade III/ murmur mitral space, peripheral pulses 2+ radial palpated bilaterally GI: Normal to inspection, nondistended Extremities: Full ROM, normal, normal capillary refill, no cyanosis, 1+ nonpitting edema bilateral lower extremities Neuro: Alert and oriented x4, no focal motor deficits Psych: Affect normal, denies suicidal ideation, mental status grossly normal Skin: No rashes or lesions noted, no wounds Data 06/20/25 05:47 06/20/25 05:47 A&P Assessment and plan 1. Elevated troponin: 2. Acute on chronic diastolic heart failure: 3. Intermittent atrial fibrillation: 4. Moderate to severe mitral regurgitation: Plan: Patient has normal EF at 60%. Mitral valve regurgitation is now severe. May need mitraclip in the future. Diuresis on hold as patient has had an increase in creatinine to 3.1. will continue to hold duretics until kandy has cleared. PDMP PDMP Reviewed: Not Reviewed Attestations 2 Medical Necessity Statement*: Deferred to primary Coding Level of Care Code Acute Code for [facility] Fwd Diagnoses Elevated troponin R79.89 Acute on chronic diastolic heart failure I50.33 Heart failure chronicity: acute on chronic Intermittent atrial fibrillation I48.0 Moderate to severe mitral regurgitation I34.0
--- NOTE | 2025-06-20 15:41 | PC.SOCIAL ---
*IMM* CM delivered IMM from Medicare to patient. Patient received a copy. Copy placed in chart, initialed and dated 06/19/25.
--- NOTE | 2025-06-20 17:06 | P.PN_ITS ---
Vitals/I&O/Wt Last Vital Signs Temp 98.0 F 06/20/25 16:00 Pulse 60 06/20/25 16:00 Resp 17 06/20/25 11:35 BP 90/58 06/20/25 16:00 Pulse Ox 94 06/20/25 16:00 O2 Del Method Nasal Cannula 06/20/25 16:00 O2 Flow Rate 3 06/20/25 16:00 FiO2 36 06/17/25 20:36 06/20/25 06/20/25 06/20/25 06:59 14:59 22:59 Intake Total 240 / 240 Balance 240 / 240 Weight last 48 hrs Weight 73.539 kg Weight 74.298 kg Physical Exam 2 Const: COMMON NORMALS: patient oriented x3 and alert GENERAL APPEARANCE: c ooperative ORIENTATION/CONSCIOUSNESS: Yes awake HENMT: COMMON NORMALS: oropharynx normal Neck/C-Spine: COMMON NORMALS: no JVD Resp: COMMON NORMALS: normal respiratory effort and clear to auscultation bilaterally AUSCULTATION: clear to auscultation bilaterally Cardio: COMMON NORMALS: no JVD, regular rhythm, S1 normal heart sound present, S2 normal heart sound present and No murmurs present (Cardio) RHYTHM: regular rhythm HEART SOUNDS: S1 normal heart sound present and S2 normal heart sound present GI: COMMON NORMALS: Normal to inspection, nondistended, normoactive bowel sounds present, Soft to palpation and non-tender PALPATION: Yes Soft to palpation Extremity: COMMON NORMALS: no joint enlargement and no pedal edema Neuro: COMMON NORMALS: patient oriented x3 and moves all extremities S ENSORIUM/ORIENTATION: Yes alert Skin: COMMON NORMALS: no rashes or lesions noted GENERAL SKIN EXAM: no rashes or lesions noted Data 06/20/25 05:47 06/20/25 05:47 A&P Assessment and plan 1. Hyperkalemia: Reviewed history. Potassium reviewed, today 5.7. Recheck potassium. May need additional Kayexalate. Did have a bowel movement yesterday. Continue to withhold potassium supplement, spironolactone. Discussed with her and also her grandson. With some body ache today, requested CK. Discussed with cardiology team. Discussed with nursing, dependency case manager. 2. Acute kidney injury superimposed on chronic kidney disease: Reviewed chemistry, intake and output. Discussed with her and also her grandson, noted renal function improved, creatinine up to 3.1. Discussed with cardiology. Hold off further diuresis at this time. Requested CK to assess for rhabdomyolysis. Later this evening blood pressure soft 90/58. Will hold Imdur, metoprolol dose was held. Albumin reviewed, low, will give a dose of albumin. Monitor for risk of fluid overload. Continue to withhold diuretic. Recheck chemistry. 3. Iron deficiency anemia, unspecified iron deficiency anemia type: Reviewed hemoglobin. Appears to be chronic and her hemoglobin is at her baseline. Will continue to monitor. 4. Presence of permanent cardiac pacemaker: Keep on telemetry 5. Acute on chronic diastolic heart failure: Diuretics on hold with worsening renal function. Overall likely without further hypervolemia. He is on baseline oxygen, normally on 3 L. Suspect mitral regurgitation contributing to similar dyspnea. Reviewed cardiology note. Per discussion with cardiology consideration of MitraClip repair of mitral valve regurgitation which may be needed, likely outpatient as discussed with patient and grandson, although cardiology will be further discussing with them. 6. Benign essential hypertension with target blood pressure below 140/90: Restart home medication once medication conciliation completed 7. Diabetes: FSBS, sign scale insulin restart home Lantus 8. Hypothyroidism: TSH mildly elevated PDMP PDMP Reviewed: Not Reviewed Attestations 2 Medical Necessity Statement*: Continue admission for reassessment of persistent hyperkalemia, MATILDA on CKD, reassessment of volume status, treatment of low blood pressure and lady with additional comorbidities as above. and High MDM includes amount and/or complexity of data reviewed/ordered [ previous or external records, resulted lab(s)/test(s), ordered lab(s)/test(s) and other healthcare professional discussion] and described risk of complication, morbidity or mortality of management as documented Diagnoses Hyperkalemia E87.5 Acute kidney injury superimposed on chronic kidney disease N17.9; N18.9 Iron deficiency anemia, unspecified iron deficiency anemia type D50.9 Anemia type: iron deficiency Iron deficiency anemia type: unspecified iron deficiency Presence of permanent cardiac pacemaker Z95.0 Acute on chronic diastolic heart failure I50.33 Heart failure chronicity: acute on chronic Benign essential hypertension with target blood pressure below 140/90 I10 Diabetes E11.9 Hypothyroidism E03.9
[2025-06-20 18:12] LABS: Potassium 4.6 mmol/L (3.5-5.1)
[2025-06-20] MEDS: insulin glargine 100 units/1 mL 20 UNIT SUBCUT (21:03)
[2025-06-20] MEDS: PRAMIPEXOLE 0.5 MG TABLET 2 MG PO (21:03)
[2025-06-21] VITALS (8 sets, daily range): BP systolic 90–149; BP diastolic 57–92; PULSE 59–67; RESP 15–17; TEMP 36.6–36.8; O2SAT 94–99
[2025-06-21 04:44] LABS: Hematocrit 35.5 % (36-47); Hemoglobin 10.30 g/dL (11.27-16.99); Mean Corpuscular HGB Conc 29.0 g/dL (30-55); Mean Corpuscular Hemoglobin 28.5 pg (27-33); Mean Corpuscular Volume 98.1 fl (85-98); Nucleated Red Blood Cells % 0 %; Platelet Count 144 10^3/cmm (157-399); Red Blood Count 3.62 10^6/uL (3.85-5.65); White Blood Count 9.13 10^3/uL (3.29-11.43)
[2025-06-21] MEDS: APIXABAN 2.5 MG TABLET PO ×2 (05:00→17:03)
[2025-06-21] MEDS: carbidopa-levodopa 25-100mg Tablet 1 EACH PO ×2 (05:00→17:03)
[2025-06-21 05:13] LABS: Alanine Aminotransferase 11 U/L (0-33); Albumin Level 3.4 g/dL (3.5-5.2); Alkaline Phosphatase 234 U/L (35-105); Blood Urea Nitrogen 78 mg/dL (8-23); Calcium 8.1 mg/dL (8.5-10.5); Carbon Dioxide 25 mmol/L (22-29); Chloride 97 mmol/L (98-107); Globulin 2.5 g/dL (1.3-4.6); Glucose 84 mg/dL (65-115); Osmolality Calculated 307 mOsm/kg (285-295); Sodium 137 mmol/L (136-145); Total Protein 5.9 g/dL (6.6-8.7)
[2025-06-21 05:19] LABS: Anion Gap 19.9 (5-19); Aspartate Amino Transferase 113 U/L (0-32); Potassium 4.9 mmol/L (3.5-5.1)
[2025-06-21] MEDS: blistex lip oint 7 gm Tube 1 APPLIC TOPICAL (05:19)
--- NOTE | 2025-06-21 09:27 | PM.PN ---
Subjective Subjective: States she is still not feeling well. Vitals/I&O/Wt Last Vital Signs Temp 98.0 F 06/21/25 07:21 Pulse 60 06/21/25 07:21 Resp 17 06/21/25 07:21 BP 95/62 06/21/25 07:21 Pulse Ox 99 06/21/25 07:21 O2 Del Method Nasal Cannula 06/21/25 07:21 O2 Flow Rate 3 06/21/25 07:21 FiO2 36 06/17/25 20:36 06/20/25 06/21/25 06/21/25 22:59 06:59 14:59 Intake Total 50 / 290 960 / 1250 Balance 50 / 290 960 / 1250 Weight last 48 hrs Weight 73.482 kg Weight 73.539 kg Physical Exam Narrative: Accompanied by her grandson. Const: COMMON NORMALS: patient oriented x3 and alert GENERAL APPEARANCE: cooperative ORIENTATION/CONSCIOUSNESS: Yes awake HENMT: COMMON NORMALS: oropharynx normal Neck/C-Spine: COMMON NORMALS: no JVD Resp: COMMON NORMALS: normal respiratory effort and clear to auscultation bilaterally AUSCULTATION: clear to auscultation bilaterally Cardio: COMMON NORMALS: no JVD, regular rhythm, S1 normal heart sound present, S2 normal heart sound present and No murmurs present (Cardio) RHYTHM: regular rhythm HEART SOUNDS: S1 normal heart sound present and S2 normal heart sound present GI: COMMON NORMALS: Normal to inspection, nondistended, normoactive bowel sounds present, Soft to palpation and non-tender PALPATION: Yes Soft to palpation Extremity: COMMON NORMALS: no joint enlargement GENERAL: Yes edema (Trace) Neuro: COMMON NORMALS: patient oriented x3 and moves all extremities SENSORIUM/ORIENTATION: Yes alert Skin: COMMON NORMALS: no rashes or lesions noted GENERAL SKIN EXAM: no rashes or lesions noted Data 06/21/25 04:11 06/21/25 04:11 A&P Assessment and plan 1. Acute kidney injury superimposed on chronic kidney disease: Reviewed vitals, intake and output, she does not have a Ferrari so pain has been difficult to track, but otherwise has been noted oliguric. Hyperkalemia has resolved. Worsening renal parameters this morning, BUN 78, creatinine 4.1. Reviewed CK, without any significant elevation. Obtain kidney ultrasound. Discussed with water resource engineering specialist, appreciate consultation. Again with soft blood pressure this morning, obtain orthostatics. Continue to hold off Imdur. Reduce beta-michael dose. Add midodrine at low-dose. Monitor for risk of worsening bradycardia. Monitor intake and output. Repeat chemistry. Decrease insulin pramipexole dose. Monitor for risk of hypoglycemia. 2. Hyperkalemia: So far resolved with treatment. But with worsening renal function. Repeat chemistry. Reviewed CK. Discussed with nephrology, cardiology team. Discussed with nursing, disability case manager. 3. Iron deficiency anemia, unspecified iron deficiency anemia type: Reviewed hemoglobin. Appears to be chronic and her hemoglobin is at her baseline. Will continue to monitor. 4. Presence of permanent cardiac pacemaker: Keep on telemetry 5. Acute on chronic diastolic heart failure: Diuretics on hold with worsening renal function. Overall likely without further hypervolemia. He is on baseline oxygen, normally on 3 L. Suspect mitral regurgitation contributing to similar dyspnea. Reviewed cardiology note. Per discussion with cardiology consideration of MitraClip repair of mitral valve regurgitation which may be needed, likely outpatient as discussed with patient and grandson, although cardiology will be further discussing with them. 6. Benign essential hypertension with target blood pressure below 140/90: Restart home medication once medication conciliation completed 7. Diabetes: FSBS, sign scale insulin Reduce Lantus dose, monitor for risk of hypoglycemia. 8. Hypothyroidism: TSH mildly elevated Plan: Contaminated UA: With noted more than 100 WBC, but 11-20 squamous patella cells. Repeat UA with straight cath requested. PDMP PDMP Reviewed: Not Reviewed Attestations Medical Necessity Statement*: Continue admission for reassessment of persistent hyperkalemia, MATILDA on CKD, reassessment of volume status, treatment of low blood pressure and lady with additional comorbidities as above. and High MDM includes amount and/or complexity of data reviewed/ordered [ resulted lab(s)/test(s), ordered lab(s)/test(s) and other healthcare professional discussion] and described risk of complication, morbidity or mortality of management as documented Diagnoses Acute kidney injury superimposed on chronic kidney disease N17.9; N18.9 Hyperkalemia E87.5 Iron deficiency anemia, unspecified iron deficiency anemia type D50.9 Anemia type: iron deficiency Iron deficiency anemia type: unspecified iron deficiency Presence of permanent cardiac pacemaker Z95.0 Acute on chronic diastolic heart failure I50.33 Heart failure chronicity: acute on chronic Benign essential hypertension with target blood pressure below 140/90 I10 Diabetes E11.9 Hypothyroidism E03.9
[2025-06-21] MEDS: oxyCODONE-APAP 10-325 mg Tablet 1 TAB PO (09:50)
--- NOTE | 2025-06-21 10:13 | PM.CONSULT ---
Providers/Reason For Consult Consulting Physician/Specialty*: sylvester renee md, / telenephrology Reason for Consult*: Acute kidney injury Requesting Physician: Silverio Dominguez Attending Physician: Silverio Dominguez Primary Care Provider: Terence Rogers History of Present Illness History of Present Illness Vaibhav Ramsey is a 84 year old female she was admitted on June 16, 2025 with worsening shortness of breath. Patient has history of heart failure preserved EF intermittent atrial fibrillation UTI obstructive sleep apnea obstructive lung disease, moderate to severe mitral valve regurgitation permanent pacemaker. Patient was given diuretics and her creatinine which is normally 1.1 by June up to 1.6 and has been rising steadily daily today's creatinine is 4.1 mg/dL during this admission her spironolactone and her potassium supplementation was held as she has had hyperkalemia with potassium is in the mid sixes her potassium is improved but her creatinine continues to rise renal was called to see the patient. Review of Systems Narrative: Weak short of breath lethargic has some edema. Abdominal distention and nausea. Poor appetite positive dyspnea on exertion orthopnea. Positive headaches. Denies fevers or chills. She denies difficulty urinating but is not urinating much denies diarrhea denies constipation. Has some leg pain. Medications/Allergies Home Medications ?Medication ?Instructions ?Recorded ?Confirmed ?Last Taken ?Type allopurinol 300 mg tablet 300 mg PO BID 07/31/19 06/17/25 10/29/23 History carbidopa 25 mg-levodopa 100 mg 1 tab PO BID 07/31/19 06/17/25 10/29/23 History tablet cyanocobalamin (vitamin B-12) 1,000 mcg IM Q30D 07/31/19 06/17/25 10/24/23 History 1,000 mcg/mL injection solution oxycodone-acetaminophen 10 mg-325 1 tab PO Q6H PRN Pain, Mild 07/31/19 06/17/25 11/09/22 History mg tablet pramipexole 0.5 mg tablet 2 mg PO BEDTIME 07/31/19 06/17/25 10/28/23 History nitroglycerin 0.4 mg sublingual 0.4 mg sublingual Q5M PRN chest 12/10/19 06/17/25 07/06/20 20:00 Rx tablet pain 30 days #30 tabs post mastectomy Bras #4 ea 01/14/22 06/17/25 Unknown Rx apixaban 2.5 mg tablet 2.5 mg PO BID #90 tabs 03/16/22 06/17/25 10/29/23 Rx levothyroxine 100 mcg tablet 100 mcg PO DAILY 08/30/22 06/17/25 10/29/23 History insulin glargine 100 unit/mL 20 unit SUBCUT BEDTIME 11/09/22 06/17/25 10/28/23 History subcutaneous solution (Lantus U-100 Insulin) zinc acetate 25 mg (zinc) capsule 50 mg PO DAILY 09/26/23 06/17/25 10/29/23 History baclofen 5 mg tablet 5 mg PO BID PRN Spasms 10/29/23 06/17/25 10/29/23 History sertraline 100 mg tablet 100 mg PO DAILY 10/29/23 06/17/25 10/29/23 History pantoprazole 40 mg tablet,delayed 40 mg PO DAILY 11/05/23 06/17/25 Unknown History release metoprolol tartrate 25 mg tablet 25 mg PO BID 08/15/24 06/17/25 Unknown History ascorbic acid (vitamin C) 500 mg 500 mg PO DAILY 06/17/25 06/17/25 Unknown History tablet (Vitamin C) docusate sodium 100 mg capsule 100 mg PO BID 06/17/25 06/17/25 Unknown History (Colace) fluticasone propionate 50 2 spray intranasal BEDTIME 06/17/25 06/17/25 Unknown History mcg/actuation nasal spray,suspension furosemide 40 mg tablet (Lasix) 40 mg PO BID 06/17/25 06/17/25 Unknown History isosorbide mononitrate 120 mg 120 mg PO DAILY 06/17/25 06/17/25 Unknown History tablet,extended release 24 hr meclizine 25 mg tablet 25 mg PO TID PRN Dizziness 06/17/25 06/17/25 Unknown History ondansetron HCl 4 mg tablet 4 mg PO Q6H PRN Nausea 06/17/25 06/17/25 Unknown History pravastatin 40 mg tablet 40 mg PO BEDTIME 06/17/25 06/17/25 Unknown History spironolactone 25 mg tablet 25 mg PO DAILY 06/17/25 06/17/25 Unknown History Allergies Allergy/AdvReac Type Severity Reaction Status Date / Time codeine Allergy patient Verified 02/06/25 08:09 doesn't recall flecainide Allergy severe Verified 02/06/25 08:09 vomiting garlic Allergy Unknown Verified 02/06/25 08:09 Iodinated Contrast Media Allergy renal Verified 02/06/25 08:09 disease naproxen Allergy renal Verified 02/06/25 08:09 disease Penicillins Allergy hives Verified 02/06/25 08:09 shellfish derived Allergy unknown Verified 02/06/25 08:09 Sulfa (Sulfonamide Allergy itching Verified 02/06/25 08:09 Antibiotics) tramadol AdvReac makes me Verified 02/06/25 08:09 crazy Current Medications Generic Name Dose Route Start Last Admin Trade Name Freq PRN Reason Stop Dose Admin Apixaban 2.5 mg 06/17/25 17:00 06/21/25 05:00 Apixaban 2.5 Mg Tablet PO 2.5 mg BID GONZALO Administration Atorvastatin Calcium 20 mg 06/17/25 21:00 06/19/25 21:11 Atorvastatin 20 Mg Tablet PO 20 mg On Hold: 06/20/25 17:28 BEDTIME GONZALO Administration Camphor/Menthol/Phenol 1 applic 06/21/25 05:02 06/21/25 05:19 Blistex Lip Oint 7 Gm Tube TOPICAL 1 applic PRN PRN Administration DRYNESS Carbidopa/Levodopa 1 each 06/17/25 17:00 06/21/25 05:00 Carbidopa-Levodopa 25-100mg Tablet PO 1 each BID GONZALO Administration Furosemide 60 mg 06/17/25 17:00 06/18/25 05:42 Furosemide 10 Mg/Ml Sdv 4ml IVP 60 mg On Hold: 06/18/25 08:36 BID GONZALO Administration Insulin Human Lispro 0 unit 06/16/25 21:00 06/20/25 21:20 Insulin Lispro 100 Unit/1 Ml SUBCUT Not Given BEDTIME GONZALO Protocol Insulin Human Lispro 0 unit 06/16/25 21:00 06/21/25 07:29 Insulin Lispro 100 Unit/1 Ml SUBCUT Not Given WM&BEDTIME GONZALO Protocol Isosorbide Mononitrate 120 mg 06/18/25 05:00 06/20/25 04:58 Isosorbide Mononitrate Er 60 Mg Tablet PO 120 mg On Hold: 06/20/25 17:00 DAILY GONZALO Administration Levothyroxine Sodium 100 mcg 06/18/25 05:00 06/21/25 05:00 Levothyroxine 100 Mcg Tablet PO 100 mcg DAILY GONZALO Administration Midodrine 5 mg 06/21/25 09:30 06/21/25 09:47 Midodrine 5 Mg Tablet PO 5 mg TID GONZALO Administration Ondansetron HCl 4 mg 06/18/25 16:43 06/19/25 17:34 Ondansetron Hcl Odt 4 Mg Tab PO 4 mg Q4H PRN Administration NAUSEA AND VOMITING Oxycodone/Acetaminophen 1 tab 06/18/25 14:44 06/21/25 09:50 Oxycodone-Apap 10-325 Mg Tablet PO 1 tab Q6H PRN Administration MODERATE PAIN Pantoprazole Sodium 40 mg 06/18/25 05:00 06/21/25 04:[address] 40 Mg Tablet PO 40 mg DAILY GONZALO Administration Sertraline HCl 100 mg 06/18/25 05:00 06/21/25 04:59 Sertraline 100 Mg Tablet PO 100 mg DAILY GONZALO Administration PFSH Acute PFSH: Medical History (Updated 06/20/25 @ 17:26 by Silverio Dominguez MD) Diastolic heart failure Intermittent atrial fibrillation Ascitic fluid Abdominal distention Clear vaginal discharge DNR (do not resuscitate) MATILDA (acute kidney injury) MATILDA (acute kidney injury) Acute UTI Atrial fibrillation Sinus node dysfunction Obstructive sleep apnea Gastritis and duodenitis Enterovirus infection, unspecified CHF exacerbation Community acquired pneumonia Fracture of distal end of right fibula Lung nodule, solitary Restrictive lung disease Restrictive lung disease Transaminitis Mild. Most likely due to passive congestion due her CHF. Lumbar stenosis with neurogenic claudication Difficulty in swallowing High anion gap metabolic acidosis Bilateral renal cysts On multiple imaging modalities all appear simple. No further work-up recommended December 2020 Pacemaker Right bundle branch block Supraventricular tachycardia COVID-19 Elevated troponin Chest pain Chronic respiratory failure with hypoxia and hypercapnia GERD (gastroesophageal reflux disease) Atypical chest pain Cardiac [place] [address] [place]. She had no significant coronary artery disease at that time. Chronic kidney disease Osteoarthritis Syncope Chronic kidney disease -baseline Cr appears to be around 2-2.3 - Symptomatic bradycardia UTI (urinary tract infection) - Bradycardia Anemia -on iron supplementation COPD (chronic obstructive pulmonary disease) Uses 3 L [id number] and BiPAP at night Gout Former smoker Normal coronary angiogram Cardiac angiogram done in September 2015 Chronic back pain History of pulmonary embolism -is on AC with Eliquis Hypothyroidism Type 2 diabetes mellitus Hypertension Diastolic heart failure Chronic anticoagulation Paroxysmal A-fib Surgical History Postoperative state Status post lumbar laminectomy H/O right mastectomy History of tonsillectomy H/O hernia repair H/O colonoscopy 2019 H/O esophagogastroduodenoscopy (~04/2020) 2019 H/O left knee surgery Tubal ligation status History of cholecystectomy Family History Father CAD (coronary artery disease) Family history of premature coronary artery disease Hypertension Mother Cancer Chronic kidney disease (CKD) Hypertension Sister Hyperlipidemia Hypertension Daughter No problems noted. Other Diabetes Social History Smoking and tobacco/nicotine status: former use of tobacco/nicotine Quit status (tobacco/nicotine): has quit using Year quit tobacco: 1970 - 1PPD x 25 Years Alcohol intake: never Substance/Drug Use: never Caregiver/support person: Yes Lives independently: Yes Household members: family Housing: House Marital status: / Current occupational status: retired Do you think of yourself as: Straight/Heterosexual Vitals/I&O/Wt Last Vital Signs Temp 98.0 F 06/21/25 07:21 Pulse 60 06/21/25 07:21 Resp 17 06/21/25 09:50 BP 95/62 06/21/25 07:21 Pulse Ox 99 06/21/25 07:21 O2 Del Method Nasal Cannula 06/21/25 07:21 O2 Flow Rate 3 06/21/25 07:21 FiO2 36 06/17/25 20:36 06/20/25 06/21/25 06/21/25 22:59 06:59 14:59 Intake Total 50 / 290 960 / 1250 240 / 240 Balance 50 / 290 960 / 1250 240 / 240 Weight last 48 hrs Weight 73.482 kg Weight 73.539 kg Physical Exam Narrative: Patient is lying in bed vital signs noted. Patient requiring nasal cannula oxygen. HEENT normocephalic atraumatic. Neck is supple. Lungs dull bases. Heart has a murmur is regular positive S1-S2. Abdomen is soft nontender positive distended with ascites. Extremities 1+ edema Neuro awake and alert. Data 06/21/25 04:11 06/21/25 04:11 A&P Assessment and plan 1. Acute kidney injury superimposed on chronic kidney disease: 84-year-old lady with baseline creatinine 1.1 mg/dL giving her mild CKD stage IIIa. Patient has heart failure preserved EF, coronary artery disease, intermittent atrial fibrillation, Moderate to severe mitral regurgitation. Patient was admitted with worsening shortness of breath patient was given diuretics. Patient has had hypotension patient has developed acute kidney injury between June 17 and June 18 and it continues with an oliguric renal failure 1. Oliguric acute kidney injury differential diagnosis in this case is ATN versus cardiorenal syndrome versus prerenal azotemia versus pulmonary renal syndrome versus others. On imaging on June 18 she had no hydronephrosis. On urinalysis from June 18 she had 3+ protein 2+ blood 2+ leuk esterase, 11-20 RBCs and greater than 100 white cells with 4+ bacteria. Will repeat a urinalysis at this time. Also repeat urine electrolytes. Will check a CPK. Given her shortness of breath will send basic serologies. Repeat a chest x-ray. 2. Patient has mild anemia appears stable her thrombocytopenia has improved. 3. Will check TSH Regarding heart failure management can continue furosemide will see if she responds. Patient was seen and examined using A/V equipment. The case was discussed in detail with the patient, her nurse and her son. The patient and family consented to telehealth. Plan: As above. PDMP PDMP Reviewed: Not Reviewed Consult Attestations Medical Necessity Statement: Acute kidney injury Time Spent in Patient Care: Greater than 35 minutes (>than 50% of time spent in counselling and/or direct pt care on unit). Coding Level of Care Code Acute Code for g Fwd Diagnoses Acute kidney injury superimposed on chronic kidney disease N17.9; N18.9
--- NOTE | 2025-06-21 10:26 | XR_ITS ---
WS: [id number] XR chest 2V insp/exp [id number] REASON FOR EXAM: sob, chf, kandy FINDINGS: Cardiac device of the left chest with trans left subclavian lead to the right ventricular apex. Moderate tortuosity and ectasia of the thoracic aorta with calcification of the aortic arch. Cardiomegaly with mitral valve annulus calcification. Mild to moderate congestion of the central pulmonary veins. The inspiratory chest is unchanged to the previous examination of 06/16/2025. Expiratory image demonstrates the expected diaphragmatic movement. No air trapping or pneumothorax demonstrated. XR/XR chest 2V insp/exp [id number] IMPRESSION: Stable abnormal chest as above.
--- NOTE | 2025-06-21 10:31 | USR_ITS ---
PROCEDURE INFORMATION: Exam: US Retroperitoneal, Complete, Kidneys, Aorta, IVC. Exam date and time: 06/21/2025 4:40 PM Age: 84 years old Clinical indication: Condition or Disease; Other: MATILDA TECHNIQUE: Imaging protocol: Real-time ultrasound of the retroperitoneum with image documentation. Complete exam focused on the bilateral kidneys, aorta, and inferior vena cava. COMPARISON: US renal BI w/PV bladder [id number] 10/27/2020 9:12 AM FINDINGS: Right kidney: The right kidney is normal in size with generally increased echogenicity, 10.8 cm in length. No visible right renal stones. No solid right renal mass. Multiple renal cortical cysts are present. Largest is in the lower pole measuring 2.3 cm. No right hydronephrosis. Left kidney: The left kidney is normal in size with generally increased echogenicity, 9.0 cm in length. Diffuse renal cortical thinning also noted. Multiple left renal cortical cysts are present, largest measuring 6 cm. No visible left renal stones. No solid left renal mass. No left hydronephrosis. Aorta: Normal. No aneurysm. Intraperitoneal space: Generalized intra-abdominal ascites noted, most prominent in the lower abdomen. US/US renal BI* [id number] IMPRESSION: 1. No acute findings. No renal stones or obstruction. 2. Both kidneys demonstrate generalized increased echogenicity compatible with nonspecific chronic renal disease. 3. Generalized intra-abdominal ascites.
--- NOTE | 2025-06-21 11:20 | PC.SOCIAL ---
IMM Updated Updated pt on IMM. No questions voiced. Provided a copy to pt. Initialed, dated, & timed copy in chart.
[2025-06-21 11:56] LABS: Uric Acid 3.5 mg/dL (2.4-5.7)
[2025-06-21 12:23] LABS: Hepatitis B Surface Antigen Non-Reactive (Nonreactive)
[2025-06-21 12:32] LABS: Glucose Urine UA Negative (Normal); Nitrate Urine Negative (Negative); Specific Gravity, Urine 1.021 (1.005-1.030)
[2025-06-21 12:49] LABS: Potassium, Radom Urine 39 mmol/L; Urine Random Chloride 33 mmol/L; Urine Random Sodium 48 mmol/L
[2025-06-21 12:54] LABS: UA Slide Review UA Slide Review Perf
[2025-06-21 19:10] LABS: Glucose Urine UA Negative (Normal); Nitrate Urine Negative (Negative); Specific Gravity, Urine 1.021 (1.005-1.030)
[2025-06-21 19:16] LABS: Add Urine Microscopic? YES; Universal Test for UA Present (0)
[2025-06-21] MEDS: PRAMIPEXOLE 0.5 MG TABLET 1 MG PO (20:21)
[2025-06-22] VITALS (7 sets, daily range): BP systolic 94–98; BP diastolic 56–66; PULSE 59–60; RESP 16–17; TEMP 36.3–36.8; O2SAT 94–98
[2025-06-22 03:56] LABS: Hematocrit 35.7 % (36-47); Hemoglobin 10.60 g/dL (11.27-16.99); Mean Corpuscular HGB Conc 29.7 g/dL (30-55); Mean Corpuscular Hemoglobin 28.6 pg (27-33); Mean Corpuscular Volume 96.5 fl (85-98); Nucleated Red Blood Cells % 0 %; Platelet Count 143 10^3/cmm (157-399); Red Blood Count 3.70 10^6/uL (3.85-5.65); White Blood Count 9.32 10^3/uL (3.29-11.43)
[2025-06-22 04:31] LABS: Alanine Aminotransferase 12 U/L (0-33); Albumin Level 3.2 g/dL (3.5-5.2); Alkaline Phosphatase 238 U/L (35-105); Anion Gap 23.4 (5-19); Aspartate Amino Transferase 76 U/L (0-32); Calcium 7.8 mg/dL (8.5-10.5); Carbon Dioxide 23 mmol/L (22-29); Chloride 93 mmol/L (98-107); Ferritin 173 ng/mL (15-150); Globulin 2.5 g/dL (1.3-4.6); Glucose 87 mg/dL (65-115); Iron 21 ug/dL (37-145); Magnesium 2.7 mg/dL (1.7-2.3); Osmolality Calculated 308 mOsm/kg (285-295); Potassium 4.4 mmol/L (3.5-5.1); Sodium 135 mmol/L (136-145); Total Iron Binding Capacity 248 mcg/dl; Total Protein 5.7 g/dL (6.6-8.7); Unsaturated Iron Binding 227 ug/dL (112-347)
[2025-06-22 04:39] LABS: Blood Urea Nitrogen 94 mg/dL (8-23)
[2025-06-22] MEDS: carbidopa-levodopa 25-100mg Tablet 1 EACH PO ×2 (05:58→16:00)
[2025-06-22] MEDS: ondansetron hcl ODT 4 mg Tab PO ×3 (05:59→22:16)
[2025-06-22] MEDS: APIXABAN 2.5 MG TABLET PO (05:59)
[2025-06-22 08:19] LABS: Anti-Double Strand DNA AB <1 IU/mL
--- NOTE | 2025-06-22 09:49 | P.PN_ITS ---
Subjective 2 Subjective: weak, poor appetite, swollen and abd pain. mild SOB, has mild edema in legs Medications: Reviewed: Yes Medication Review Details: Current Medications Acetaminophen (Acetaminophen 325 Mg Tablet) 650 mg PO Q6H PRN PRN Reason: Mild/Mod Pain Or Temp >/= 101 Last Admin: 06/21/25 20:24 Dose: 650 mg Apixaban (Apixaban 2.5 Mg Tablet) 2.5 mg PO BID GONZALO Last Admin: 06/22/25 05:59 Dose: 2.5 mg Atorvastatin Calcium (Atorvastatin 20 Mg Tablet) 20 mg PO BEDTIME GONZALO On Hold: 06/20/25 17:28 Last Admin: 06/19/25 21:11 Dose: 20 mg Camphor/Menthol/Phenol (Blistex Lip Oint 7 Gm Tube) 1 applic TOPICAL PRN PRN PRN Reason: DRYNESS Last Admin: 06/21/25 05:19 Dose: 1 applic Carbidopa/Levodopa (Carbidopa-Levodopa 25-100mg Tablet) 1 each PO BID GONZALO Last Admin: 06/22/25 05:58 Dose: 1 each Furosemide (Furosemide 10 Mg/Ml Sdv 4ml) 60 mg IVP BID GONZALO On Hold: 06/18/25 08:36 Last Admin: 06/18/25 05:42 Dose: 60 mg Glucagon (Glucagon 1 Mg/Ml Kit 1 Ml) 1 mg IM ONCE PRN; Protocol PRN Reason: Adult Acute Hypoglycemia Nursing Prot. Dextrose (D5w) 500 mls @ 0 mls/hr IV ONCE PRN; Protocol PRN Reason: Adult Acute Hypoglycemia Prot Dextrose (D10w) 125 mls @ 750 mls/hr IV PRN PRN; Protocol PRN Reason: Adult Acute Hypoglycemia Nursing Protocol Dextrose (D10w) 250 mls @ 1,000 mls/hr IV PRN PRN; Protocol PRN Reason: Adult Acute Hypoglycemia Nursing Protocol Ciprofloxacin/Dextrose (Cipro) 400 mg in 200 mls @ 200 mls/hr IV Q24H GONZALO; Protocol Last Admin: 06/22/25 08:56 Dose: 200 mls/hr Insulin Glargine (Insulin Glargine 100 Units/1 Ml) 10 unit SUBCUT BEDTIME GONZALO Last Admin: 06/21/25 20:22 Dose: Not Given Insulin Human Lispro (Insulin Lispro 100 Unit/1 Ml) 0 unit SUBCUT BEDTIME GONZALO; Protocol Last Admin: 06/21/25 20:22 Dose: Not Given Insulin Human Lispro (Insulin Lispro 100 Unit/1 Ml) 0 unit SUBCUT WM&BEDTIME GONZALO; Protocol Last Admin: 06/22/25 07:37 Dose: Not Given Isosorbide Mononitrate (Isosorbide Mononitrate Er 60 Mg Tablet) 120 mg PO DAILY [facility] On Hold: 06/20/25 17:00 Last Admin: 06/20/25 04:58 Dose: 120 mg Levothyroxine Sodium (Levothyroxine 100 Mcg Tablet) 100 mcg PO DAILY [facility] Last Admin: 06/22/25 05:59 Dose: 100 mcg Metoprolol Tartrate (Metoprolol Tartrate 25 Mg Tablet) 12.5 mg PO BID [facility] Last Admin: 06/22/25 06:28 Dose: Not Given Midodrine (Midodrine 5 Mg Tablet) 5 mg PO TID [facility] Last Admin: 06/22/25 05:59 Dose: 5 mg Ondansetron HCl (Ondansetron Hcl Odt 4 Mg Tab) 4 mg PO Q4H PRN PRN Reason: NAUSEA AND VOMITING Last Admin: 06/22/25 05:59 Dose: 4 mg Oxycodone/Acetaminophen (Oxycodone-Apap 10-325 Mg Tablet) 1 tab PO Q6H PRN PRN Reason: MODERATE PAIN Last Admin: 06/21/25 09:50 Dose: 1 tab Pantoprazole Sodium (Pantoprazole Dr 40 Mg Tablet) 40 mg PO DAILY [facility] Last Admin: 06/22/25 05:59 Dose: 40 mg Pramipexole Dihydrochloride (Pramipexole 0.5 Mg Tablet) 1 mg PO BEDTIME [facility] Last Admin: 06/21/25 20:21 Dose: 1 mg Sertraline HCl (Sertraline 100 Mg Tablet) 100 mg PO DAILY [facility] Last Admin: 06/22/25 05:59 Dose: 100 mg Vitals/I&O/Wt Last Vital Signs Temp 97.7 F 06/22/25 08:05 Pulse 59 L 06/22/25 08:05 Resp 16 06/22/25 08:05 BP 94/61 06/22/25 08:05 Pulse Ox 96 06/22/25 08:05 O2 Del Method Nasal Cannula 06/22/25 08:05 O2 Flow Rate 3 06/21/25 20:16 FiO2 36 06/17/25 20:36 06/21/25 06/22/25 06/22/25 22:59 06:59 14:59 Intake Total 480 / 840 980 / 1820 120 / 120 Output Total 100 / 100 Balance 480 / 840 880 / 1720 120 / 120 Weight last 48 hrs Weight 73.482 kg Weight 73.482 kg Physical Exam 2 Narrative: Patient is lying in bed at a high angle, vital signs noted. Patient requiring nasal cannula oxygen. HEENT normocephalic atraumatic. Neck is supple. Lungs dull bases. Heart has a murmur is regular positive S1-S2. Abdomen is soft, diffuse tenderness positive distended with ascites. Extremities -b/l leg trace to 1+ edema Neuro awake and alert. Data 06/22/25 03:12 06/22/25 03:12 Micro: Microbiology 06/21/25 11:45 Urine Culture - Preliminary Urine,Clean Catch Gram Negative Rods A&P Assessment and plan 1. Acute kidney injury superimposed on chronic kidney disease: 84-year-old lady with baseline creatinine 1.1 mg/dL giving her mild CKD stage IIIa. Patient has heart failure preserved EF, coronary artery disease, intermittent atrial fibrillation, Moderate to severe mitral regurgitation. Patient was admitted with worsening shortness of breath patient was given diuretics. Patient has had hypotension patient has developed acute kidney injury between June 17 and June 18 and it continues with an oliguric renal failure 1. Oliguric acute kidney injury-urinalysis reviewed dark yellow turbid 2+ protein 2+ blood 1+ ketones 2+ bili 2+ leuk esterase, greater than 100 white cells 6-12 squamous epithelials and 4+ bacteria. Renal ultrasound without any hydronephrosis. Patient does have ascites. Potassium remains 4.4 bicarbonate 23 BUN rising to 94 patient does have some uremic symptoms phosphorus is 9.6. Puoz-qkchuj-onuzfodg DNA is negative complements are normal C3-C4 Hepatitis B surface antigen and antibody negative hep C negative. Patient likely has ATN versus cardiorenal syndrome. Patient does have an enlarged tender belly. Question of abdominal syndrome will place Ferrari catheter. Will monitor patient if she does not start urinating then please place dialysis catheter and will likely need dialysis soon. The patient is hypotensive will be difficult to do dialysis. May need to transfer to ICU for dialysis. Please discussed with cardiology whether we should do a repeat echo. Normal CPK CONTINUE TO HOLD ELIQUIS WILL LIKELY NEED A DIALYSIS CATHETER 1B. Echo reviewed patient has heart failure preserved EF grade 2 out of 4 diastolic dysfunction severe MR pulmonary hypertension tricuspid regurgitation mild AI. 2.Replace vitamin D. 3. Patient has mild anemia appears stable her thrombocytopenia has improved. Iron saturation 8.4% ferritin 173 will give IV iron 4. Will check TSH If patient is eating well use a phosphorus binder Patient was seen and examined using A/V equipment. The case was discussed in detail with the patient, her nurse and her son. The patient and family consented to telehealth and to dialysis as needed. Plan: As above. PDMP PDMP Reviewed: Not Reviewed Attestations 2 Medical Necessity Statement*: MATILDA, ABD PAIN, HYPOTENSION Time Spent in Patient Care: Greater than 35 minutes (>than 50% of time spent in counselling and/or direct pt care on unit) . Coding Level of Care Code Acute Code for Chg Fwd Diagnoses Acute kidney injury superimposed on chronic kidney disease N17.9; N18.9
[2025-06-22 10:48] LABS: Thyroid Stimulating Hormone 8.04 uIU/mL (0.27-4.20)
[2025-06-22] MEDS: ferric gluconate 125 MG in sodium chloride 0.9% (100 ml) 100 ML 110 MG IV (10:54)
--- NOTE | 2025-06-22 15:20 | P.PN_ITS ---
Subjective 2 Subjective: She does not feel improved. Has not had very good appetite. Vitals/I&O/Wt Last Vital Signs Temp 97.4 F L 06/22/25 11:09 Pulse 60 06/22/25 11:09 Resp 17 06/22/25 11:09 BP 96/57 06/22/25 11:09 Pulse Ox 96 06/22/25 11:09 O2 Del Method Nasal Cannula 06/22/25 11:09 O2 Flow Rate 3 06/22/25 11:09 FiO2 36 06/17/25 20:36 06/22/25 06/22/25 06/22/25 06:59 14:59 22:59 Intake Total 980 / 1820 430 / 430 Output Total 100 / 100 Balance 880 / 1720 430 / 430 Weight last 48 hrs Weight 73.482 kg Weight 73.482 kg Physical Exam 2 Narrative: Accompanied by her grandson on second visit today. Const: COMMON NORMALS: patient oriented x3 and alert GENERAL APPEARANCE: c ooperative ORIENTATION/CONSCIOUSNESS: Yes awake HENMT: COMMON NORMALS: oropharynx normal Neck/C-Spine: COMMON NORMALS: no JVD Resp: COMMON NORMALS: normal respiratory effort and clear to auscultation bilaterally AUSCULTATION: clear to auscultation bilaterally Cardio: COMMON NORMALS: no JVD, regular rhythm, S1 normal heart sound present, S2 normal heart sound present and No murmurs present (Cardio) RHYTHM: regular rhythm HEART SOUNDS: S1 normal heart sound present and S2 normal heart sound present GI: COMMON NORMALS: Normal to inspection, nondistended, normoactive bowel sounds present, Soft to palpation and non-tender PALPATION: Yes Soft to palpation Extremity: COMMON NORMALS: no joint enlargement and no pedal edema GENERAL: Yes edema (Trace) Neuro: COMMON NORMALS: patient oriented x3 and moves all extremities S ENSORIUM/ORIENTATION: Yes alert Skin: COMMON NORMALS: no rashes or lesions noted GENERAL SKIN EXAM: no rashes or lesions noted Urinary Catheter Management: Ferrari: Cath Placed During This Visit: yes Urinary Catheter Date of Insertion: 06/22/25 Urinary Catheter Time of Insertion: 11:45 Data 06/22/25 03:12 06/22/25 03:12 Micro: Microbiology 06/21/25 11:45 Urine Culture - Preliminary Urine,Clean Catch Gram Negative Rods A&P Assessment and plan 1. Acute kidney injury superimposed on chronic kidney disease: Without improvement in renal function, worsening renal parameters so far. Oliguric. Reviewed chemistry, BUN 94, creatinine 5.5 reviewed potassium, 4.4. Bicarb 23, anion gap 23.4. Phosphorus 9.6. Magnesium 2.7. Reviewed nephrology note, discussed with barking machine feeder. Worsening renal function. Discussed with patient and grandson. With acute renal failure in case of lack of improvement may be progressing and may require initiation of REAL ESTATE TRANSACTION MANAGER. As per discussion she had previously had dialysis temporarily in the past. Held Eliquis anticipation of possible need of dialysis cath placement. Discussed with the surgeon, continue to hold Eliquis, ideally would hold for at least 48 hours, however, in case of progressively worsening renal failure may consider placing 1 sooner tomorrow. Continue to monitor urine output. Further discussed with cardiology, however, dopamine or dobutamine currently would be risky to start with concern for worsening of her severe MR, risk of pulm edema. Okay to raise midodrine dose. In case hemodynamic support was needed, Shaquille-Synephrine could be considered. Consider trial of IV Lasix, okay per discussion with barking machine feeder. Monitor for risk of worsening bradycardia, electro abnormality. With worsening condition it is not clear that she will regain candidacy for MitraClip. Decrease insulin pramipexole dose. Monitor for risk of hypoglycemia. 2. Hyperkalemia: So far resolved with treatment. But with worsening renal function. Repeat chemistry. Reviewed CK. Discussed with nephrology, cardiology team. Discussed with nursing, registered nurse hh case manager. 3. Iron deficiency anemia, unspecified iron deficiency anemia type: Reviewed hemoglobin. Appears to be chronic and her hemoglobin is at her baseline. Will continue to monitor. 4. Presence of permanent cardiac pacemaker: Keep on telemetry 5. Acute on chronic diastolic heart failure: Diuretics on hold with worsening renal function. Overall likely without further hypervolemia. He is on baseline oxygen, normally on 3 L. Suspect mitral regurgitation contributing to similar dyspnea. Reviewed cardiology note. Per discussion with cardiology consideration of MitraClip repair of mitral valve regurgitation which may be needed, likely outpatient as discussed with patient and grandson, although cardiology will be further discussing with them. 6. Benign essential hypertension with target blood pressure below 140/90: Restart home medication once medication conciliation completed 7. Diabetes: FSBS, sign scale insulin Reduce Lantus dose, monitor for risk of hypoglycemia. 8. Hypothyroidism: TSH mildly elevated Plan: UTI: Repeat UA kitchen cleaner sample, still more 100 WBC. Requested ceftriaxone. Follow-up urine culture. Possible liver cirrhosis: With nodular contour of the liver suggestive of cirrhosis on review of prior CT. Not aware of past history of cirrhosis appears may be new diagnosis. Reviewed CBC, chemistry. Prior serology with negative hepatitis panel. Does not drink alcohol. I suspect nonalcoholic fatty liver disease basis. Poor appetite: Oral intake is tolerating. Add renal safe nutritional shakes. PDMP PDMP Reviewed: Not Reviewed Attestations 2 Medical Necessity Statement*: Continue admission for reassessment of renal failure, volume overload in a lady with additional comorbidities as above. Diagnoses Acute kidney injury superimposed on chronic kidney disease N17.9; N18.9 Hyperkalemia E87.5 Iron deficiency anemia, unspecified iron deficiency anemia type D50.9 Anemia type: iron deficiency Iron deficiency anemia type: unspecified iron deficiency Presence of permanent cardiac pacemaker Z95.0 Acute on chronic diastolic heart failure I50.33 Heart failure chronicity: acute on chronic Benign essential hypertension with target blood pressure below 140/90 I10 Diabetes E11.9 Hypothyroidism E03.9
[2025-06-22] MEDS: FUROsemide 10 mg/mL SDV 10mL 80 MG IVP (16:00)
--- NOTE | 2025-06-22 16:47 | P.PN_ITS ---
Subjective 2 Subjective: Feeling SOB Vitals/I&O/Wt Last Vital Signs Temp 97.4 F L 06/22/25 11:09 Pulse 60 06/22/25 11:09 Resp 17 06/22/25 11:09 BP 96/57 06/22/25 11:09 Pulse Ox 96 06/22/25 11:09 O2 Del Method Nasal Cannula 06/22/25 11:09 O2 Flow Rate 3 06/22/25 11:09 FiO2 36 06/17/25 20:36 06/22/25 06/22/25 06/22/25 06:59 14:59 22:59 Intake Total 980 / 1820 430 / 430 Output Total 100 / 100 Balance 880 / 1720 430 / 430 Weight last 48 hrs Weight 162 lb Weight 162 lb Physical Exam 2 Narrative: General: appears ill and weak Heart: Normal S1 and S2 with a regular rate and 3/6 systolic murmur Lungs: Normal respiratory effort with no use of intercostal muscles, clear lungs sounds to auscultation Extremities: Mild edema Abd: protuberant abd Neuro: Alert and oriented x 3 Urinary Catheter Management: Ferrari: Cath Placed During This Visit: yes Urinary Catheter Date of Insertion: 06/22/25 Urinary Catheter Time of Insertion: 11:45 Data 06/22/25 03:12 06/22/25 03:12 Micro: Microbiology 06/21/25 11:45 Urine Culture - Preliminary Urine,Clean Catch Gram Negative Rods Other data: Echo 06/17/25: Normal left ventricular size, systolic function and wall thickness, with no regional wall motion abnormalities. Left ventricular ejection fraction is estimated at 60 %. Flattened septum in diastole consistent with right ventricle volume overload. Flattened septum in systole consistent with right ventricle pressure overload. Grade II/IV diastolic dysfunction, moderately elevated filling pressures. Moderate aortic valve calcification. Mild aortic valve stenosis, mean gradient 7.5 mmHg, F[place] 1.8 cm squared. Trace aortic valve regurgitation. Moderate tricuspid valve regurgitation. Severely thickened mitral valve. No mitral valve stenosis. Severe mitral valve regurgitation. There is no pericardial effusion. A&P Assessment and plan 1. Elevated troponin: 2. Intermittent atrial fibrillation: 3. Moderate to severe mitral regurgitation: 4. Acute kidney injury superimposed on chronic kidney disease: 5. Hypotension: 6. Presence of permanent cardiac pacemaker: Plan: Patient's condition worse today due to significant increase in Cr up to 5.5 and having hypotension Oxygenating well on chronic 3L oxygen Pressor of choice to aid in BP support is alpha agonist. Can start with midodrine 10 mg tid Dobutamine not recommended due to normal EF and severe MR Diuresis on hold as patient has had a further increase in creatinine Patient currently not stable enough for a Mee-clip Plan of care being discussed with patient and grandson at bedside PDMP PDMP Reviewed: Not Reviewed Attestations 2 Medical Necessity Statement*: Patient needs at least 2 more midnights in the hospital due to acute kidney injury, hypotension and congestive heart failure Coding Level of Care Code 50493 Diagnoses Elevated troponin R79.89 Intermittent atrial fibrillation I48.0 Moderate to severe mitral regurgitation I34.0 Acute kidney injury superimposed on chronic kidney disease N17.9; N18.9 Hypotension I95.9 Presence of permanent cardiac pacemaker Z95.0
[2025-06-22] MEDS: PRAMIPEXOLE 0.5 MG TABLET 1 MG PO (22:08)
[2025-06-22] MEDS: MIDODRINE HCL 10 MG TABLET PO (22:09)
[2025-06-22] MEDS: insulin glargine 100 units/1 mL 10 UNIT SUBCUT (22:10)
[2025-06-23] VITALS (10 sets, daily range): BP systolic 107–129; BP diastolic 57–89; PULSE 58–85; RESP 14–22; TEMP 35.1–36.9; O2SAT 94–97
[2025-06-23] MEDS: ondansetron hcl ODT 4 mg Tab PO (02:45)
[2025-06-23] MEDS: oxyCODONE-APAP 5-325 mg Tablet 1 TAB PO (03:27)
--- NOTE | 2025-06-23 04:44 | PC.NURSE ---
Pt BP been soft all day yesterday and night tonight. Dr. Fisher notified and he said to hold scheduled 12.5 mg metoprolol this morning. Physician notification put in.
[2025-06-23] MEDS: carbidopa-levodopa 25-100mg Tablet 1 EACH PO ×2 (04:51→18:18)
[2025-06-23] MEDS: MIDODRINE HCL 10 MG TABLET PO ×3 (04:51→20:08)
[2025-06-23 05:06] LABS: Hematocrit 39.3 % (36-47); Hemoglobin 11.60 g/dL (11.27-16.99); Mean Corpuscular HGB Conc 29.5 g/dL (30-55); Mean Corpuscular Hemoglobin 28.6 pg (27-33); Mean Corpuscular Volume 96.8 fl (85-98); Nucleated Red Blood Cells % 0 %; Platelet Count 173 10^3/cmm (157-399); Red Blood Count 4.06 10^6/uL (3.85-5.65); White Blood Count 11.98 10^3/uL (3.29-11.43)
[2025-06-23 06:12] LABS: Alanine Aminotransferase 14 U/L (0-33); Albumin Level 3.4 g/dL (3.5-5.2); Alkaline Phosphatase 264 U/L (35-105); Aspartate Amino Transferase 52 U/L (0-32); Calcium 7.9 mg/dL (8.5-10.5); Carbon Dioxide 24 mmol/L (22-29); Chloride 90 mmol/L (98-107); Globulin 2.7 g/dL (1.3-4.6); Glucose 122 mg/dL (65-115); Magnesium 2.8 mg/dL (1.7-2.3); Osmolality Calculated 308 mOsm/kg (285-295); Sodium 134 mmol/L (136-145); Total Protein 6.1 g/dL (6.6-8.7)
[2025-06-23 06:14] LABS: Anion Gap 24.7 (5-19); Potassium 4.7 mmol/L (3.5-5.1)
[2025-06-23 06:16] LABS: Blood Urea Nitrogen 92 mg/dL (8-23)
--- NOTE | 2025-06-23 09:56 | P.PN_ITS ---
Subjective 2 Subjective: Feels SOB but appears comfortable though very weak Vitals/I&O/Wt Last Vital Signs Temp 98.2 F 06/23/25 05:00 Pulse 73 06/23/25 07:50 Resp 17 06/23/25 07:50 BP 107/62 06/23/25 07:50 Pulse Ox 95 06/23/25 07:50 O2 Del Method Room Air 06/23/25 07:50 O2 Flow Rate 3 06/22/25 20:00 FiO2 36 06/17/25 20:36 06/22/25 06/23/25 06/23/25 22:59 06:59 14:59 Intake Total 400 / 830 350 / 1180 Output Total 150 / 150 Balance 400 / 830 200 / 1030 Weight last 48 hrs Weight 162 lb Weight 162 lb Physical Exam 2 Narrative: General: appears ill and weak Heart: Normal S1 and S2 with a regular rate and 2/6 systolic murmur Lungs: Normal respiratory effort with no use of intercostal muscles, clear lungs sounds to auscultation Extremities: Mild edema Abd: protuberant abd Neuro: Alert and oriented x 3 Urinary Catheter Management: Ferrari: Cath Placed During This Visit: yes Reason for Continuing Indwelling Catheter: Acute Urinary Retention or Obstruction Urinary Catheter Date of Insertion: 06/22/25 Urinary Catheter Time of Insertion: 11:45 Data 06/23/25 04:39 06/23/25 04:39 Micro: Microbiology 06/21/25 11:45 Urine Culture - Preliminary Urine,Clean Catch Gram Negative Rods A&P Assessment and plan 1. Elevated troponin: 2. Intermittent atrial fibrillation: 3. Acute kidney injury superimposed on chronic kidney disease: 4. Hypotension: 5. Presence of permanent cardiac pacemaker: 6. Severe mitral valve regurgitation: 7. Acute on chronic heart failure with preserved ejection fraction: Plan: Patient's condition is guarded and I recommend discussing goals of care with her and her POA Code status is DNR on chart Too frail to undergo Mee clip at this point Hypotension better with the midodrine but patient's renal function continues to worsen and patient appears very weak Oxygenation stable on chronic 3L oxygen Mild trop elevation due to renal failure Mild trop elevation due to renal failure and not ACS Diuresis on hold as patient has had a further increase in creatinine Renal on board and so far holding off on dialysis. Potassium level normal. Oxygenation stable. Did have nausea likely from urea yesterday (BUN 92) PDMP PDMP Reviewed: Not Reviewed Attestations 2 Medical Necessity Statement*: needs 2 more midnights due to MATILDA Coding Level of Care Code 15246 Diagnoses Elevated troponin R79.89 Intermittent atrial fibrillation I48.0 Acute kidney injury superimposed on chronic kidney disease N17.9; N18.9 Hypotension I95.9 Presence of permanent cardiac pacemaker Z95.0 Severe mitral valve regurgitation I34.0 Acute on chronic heart failure with preserved ejection fraction I50.33
--- NOTE | 2025-06-23 10:00 | P.PN_ITS ---
Subjective 2 Subjective: Patient is weak lethargic short of breath nausea itching poor appetite and uremic. Medications: Reviewed: Yes Medication Review Details: Current Medications Acetaminophen (Acetaminophen 325 Mg Tablet) 650 mg PO Q6H PRN PRN Reason: Mild/Mod Pain Or Temp >/= 101 Last Admin: 06/21/25 20:24 Dose: 650 mg Apixaban (Apixaban 2.5 Mg Tablet) 2.5 mg PO BID GONZALO On Hold: 06/22/25 12:54 Last Admin: 06/22/25 05:59 Dose: 2.5 mg Atorvastatin Calcium (Atorvastatin 20 Mg Tablet) 20 mg PO BEDTIME [facility] On Hold: 06/20/25 17:28 Last Admin: 06/19/25 21:11 Dose: 20 mg Camphor/Menthol/Phenol (Blistex Lip Oint 7 Gm Tube) 1 applic TOPICAL PRN PRN PRN Reason: DRYNESS Last Admin: 06/21/25 05:19 Dose: 1 applic Carbidopa/Levodopa (Carbidopa-Levodopa 25-100mg Tablet) 1 each PO BID GONZALO Last Admin: 06/23/25 04:51 Dose: 1 each Ergocalciferol (Ergocalciferol (Vitamin D2) 50,000 Unit Capsule) 50,000 unit PO Q7D GONZALO Last Admin: 06/22/25 10:55 Dose: 50,000 unit Glucagon (Glucagon 1 Mg/Ml Kit 1 Ml) 1 mg IM ONCE PRN; Protocol PRN Reason: Adult Acute Hypoglycemia Nursing Prot. Dextrose (D5w) 500 mls @ 0 mls/hr IV ONCE PRN; Protocol PRN Reason: Adult Acute Hypoglycemia Prot Dextrose (D10w) 125 mls @ 750 mls/hr IV PRN PRN; Protocol PRN Reason: Adult Acute Hypoglycemia Nursing Protocol Dextrose (D10w) 250 mls @ 1,000 mls/hr IV PRN PRN; Protocol PRN Reason: Adult Acute Hypoglycemia Nursing Protocol Ciprofloxacin/Dextrose (Cipro) 400 mg in 200 mls @ 200 mls/hr IV Q24H GONZALO; Protocol Last Admin: 06/23/25 09:24 Dose: 200 mls/hr Ferric Sodium Gluconate 125 mg (/ Sodium Chloride) 110 mls @ 110 mls/hr IV Q24H GONZALO Stop: 06/29/25 10:59 Last Infusion: 06/22/25 12:08 Dose: Infused Insulin Glargine (Insulin Glargine 100 Units/1 Ml) 10 unit SUBCUT BEDTIME [facility] Last Admin: 06/22/25 22:10 Dose: 10 unit Insulin Human Lispro (Insulin Lispro 100 Unit/1 Ml) 0 unit SUBCUT WM&BEDTIME [facility]; Protocol Last Admin: 06/23/25 07:40 Dose: Not Given Isosorbide Mononitrate (Isosorbide Mononitrate Er 60 Mg Tablet) 120 mg PO DAILY [facility] On Hold: 06/20/25 17:00 Last Admin: 06/20/25 04:58 Dose: 120 mg Levothyroxine Sodium (Levothyroxine 100 Mcg Sdv) 80 mcg IVP DAILY [facility] Last Admin: 06/23/25 04:51 Dose: 80 mcg Metoprolol Tartrate (Metoprolol Tartrate 25 Mg Tablet) 12.5 mg PO BID [facility] Last Admin: 06/23/25 04:44 Dose: Not Given Midodrine (Midodrine Hcl 10 Mg Tablet) 10 mg PO TID [facility] Last Admin: 06/23/25 04:51 Dose: 10 mg Ondansetron HCl (Ondansetron 2 Mg/Ml Sdv 2 Ml) 4 mg IVP Q4H PRN PRN Reason: NAUSEA AND VOMITING Oxycodone/Acetaminophen (Oxycodone-Apap 5-325 Mg Tablet) 1 tab PO Q4H PRN PRN Reason: MODERATE PAIN Last Admin: 06/23/25 03:27 Dose: 1 tab Pantoprazole Sodium (Pantoprazole Dr 40 Mg Tablet) 40 mg PO DAILY [facility] Last Admin: 06/23/25 04:50 Dose: 40 mg Pramipexole Dihydrochloride (Pramipexole 0.5 Mg Tablet) 1 mg PO BEDTIME [facility] Last Admin: 06/22/25 22:08 Dose: 1 mg Sertraline HCl (Sertraline 100 Mg Tablet) 100 mg PO DAILY [facility] Last Admin: 06/23/25 04:51 Dose: 100 mg Sevelamer Carbonate (Sevelamer 800 Mg Tablet) 800 mg PO TIDWM [facility] Last Admin: 06/23/25 09:12 Dose: Not Given Vitals/I&O/Wt Last Vital Signs Temp 98.2 F 06/23/25 05:00 Pulse 73 06/23/25 07:50 Resp 17 06/23/25 07:50 BP 107/62 06/23/25 07:50 Pulse Ox 95 06/23/25 07:50 O2 Del Method Room Air 06/23/25 07:50 O2 Flow Rate 3 06/22/25 20:00 FiO2 36 06/17/25 20:36 06/22/25 06/23/25 06/23/25 22:59 06:59 14:59 Intake Total 400 / 830 350 / 1180 Output Total 150 / 150 Balance 400 / 830 200 / 1030 Weight last 48 hrs Weight 73.482 kg Weight 73.482 kg Physical Exam 2 Narrative: Patient is sitting up in bed at a high angle, vital signs noted. Patient requiring nasal cannula oxygen. HEENT normocephalic atraumatic. Neck is supple. Lungs dull bases and b/l crackles. Heart has a murmur is regular positive S1-S2. Abdomen is soft, diffuse tenderness positive distended with ascites. Extremities -b/l leg 1+ edema Neuro - more lethargic, weak. Urinary Catheter Management: Ferrari: Cath Placed During This Visit: yes Reason for Continuing Indwelling Catheter: Acute Urinary Retention or Obstruction Urinary Catheter Date of Insertion: 06/22/25 Urinary Catheter Time of Insertion: 11:45 Data 06/23/25 04:39 06/23/25 04:39 Micro: Microbiology 06/21/25 11:45 Urine Culture - Preliminary Urine,Clean Catch Gram Negative Rods A&P Assessment and plan 1. Acute kidney injury superimposed on chronic kidney disease: 84-year-old lady with baseline creatinine 1.1 mg/dL giving her mild CKD stage IIIa. Patient has heart failure preserved EF, coronary artery disease, intermittent atrial fibrillation, Moderate to severe mitral regurgitation. Patient was admitted with worsening shortness of breath patient was given diuretics. Patient has had hypotension patient has developed acute kidney injury between June 17 and June 18 and it continues with an oliguric renal failure 1. Oliguric acute kidney injury- Patient likely has ATN versus cardiorenal syndrome. Patient does have an enlarged tender belly. Patient has minimal urine output on volume overloaded weak and not getting diuretics as she is uremic and volume overloaded we will initiate dialysis and monitor how she does unfortunately blood pressure is on the low side given her cardiac disease. CONTINUE TO HOLD ELIQUIS WILL LIKELY NEED A DIALYSIS CATHETER 2 Echo reviewed patient has heart failure preserved EF grade 2 out of 4 diastolic dysfunction severe MR pulmonary hypertension tricuspid regurgitation mild AI. 3.Replace vitamin D. 4. Patient has mild anemia appears stable her thrombocytopenia has improved. Iron saturation 8.4% ferritin 173 will give IV iron 5. Hyponatremia from renal insufficiency Hyperphosphatemia from renal failure should improve with dialysis and a phosphate binder TSH of a cortisol level 19.79. Patient was seen and examined using A/V equipment. The case was discussed in detail with the patient, her nurse and her son. The patient and family consented to telehealth and to dialysis. Plan: As above. PDMP PDMP Reviewed: Not Reviewed Attestations 2 Medical Necessity Statement*: Acute kidney injury, uremic symptoms, volume overload, heart failure and valvular heart disease Time Spent in Patient Care: 16 - 35 minutes (>than 50% of time sp ent in counselling and/or direct pt care on unit) . Coding Level of Care Code Acute Code for Chg Fwd Diagnoses Acute kidney injury superimposed on chronic kidney disease N17.9; N18.9
[2025-06-23 10:03] LABS: Hepatitis B Surface Antigen Non-Reactive (Nonreactive)
[2025-06-23] MEDS: FUROsemide 10 mg/mL SDV 10mL 100 MG IVP (10:44)
--- NOTE | 2025-06-23 10:51 | PM.PN ---
Subjective Subjective: Nauseated this morning, vomited small amount of gastric secretion. Vitals/I&O/Wt Last Vital Signs Temp 98.2 F 06/23/25 05:00 Pulse 73 06/23/25 07:50 Resp 17 06/23/25 07:50 BP 107/62 06/23/25 07:50 Pulse Ox 95 06/23/25 07:50 O2 Del Method Room Air 06/23/25 07:50 O2 Flow Rate 3 06/22/25 20:00 FiO2 36 06/17/25 20:36 06/22/25 06/23/25 06/23/25 22:59 06:59 14:59 Intake Total 400 / 830 350 / 1180 1000 / 1000 Output Total 150 / 150 Balance 400 / 830 200 / 1030 1000 / 1000 Weight last 48 hrs Weight 73.482 kg Weight 73.482 kg Physical Exam Narrative: Weak. Sat up at bedside with assistance, but after a while had to lay back down. Const: COMMON NORMALS: patient oriented x3 and alert GENERAL APPEARANCE: cooperative ORIENTATION/CONSCIOUSNESS: Yes awake HENMT: COMMON NORMALS: oropharynx normal Neck/C-Spine: COMMON NORMALS: no JVD Resp: COMMON NORMALS: normal respiratory effort and clear to auscultation bilaterally AUSCULTATION: clear to auscultation bilaterally Cardio: COMMON NORMALS: no JVD, regular rhythm, S1 normal heart sound present, S2 normal heart sound present and No murmurs present (Cardio) RHYTHM: regular rhythm HEART SOUNDS: S1 normal heart sound present and S2 normal heart sound present GI: COMMON NORMALS: Soft to palpation and non-tender INSPECTION: Yes abdominal distension PALPATION: Yes Soft to palpation Extremity: COMMON NORMALS: no joint enlargement and no pedal edema GENERAL: Yes edema (Trace) Neuro: COMMON NORMALS: patient oriented x3 and moves all extremities SENSORIUM/ORIENTATION: Yes alert Skin: COMMON NORMALS: no rashes or lesions noted GENERAL SKIN EXAM: no rashes or lesions noted Urinary Catheter Management: Ferrari: Cath Placed During This Visit: yes Reason for Continuing Indwelling Catheter: Acute Urinary Retention or Obstruction Urinary Catheter Date of Insertion: 06/22/25 Urinary Catheter Time of Insertion: 11:45 Data 06/23/25 04:39 06/23/25 04:39 Micro: Microbiology 06/21/25 16:15 Urine Culture - Preliminary Urine,Clean Catch Gram Negative Rods Gram Negative Rods#2 06/21/25 11:45 Urine Culture - Preliminary Urine,Clean Catch Gram Negative Rods A&P Assessment and plan 1. Acute kidney injury superimposed on chronic kidney disease: Worsening acute renal failure. BUN of 92, creatinine 5.8. Appears may be having uremic symptoms with nausea, small amount of vomiting today. Phosphorus up to 10.3. Hypomagnesemia 2.8. Minimal urine output, 150 mL despite 80 mg IV Lasix push. Retort Pre Cooker, MAYCO with placement of dialysis catheter despite not being outside the window since stopping Eliquis. Discussed with surgeon who is going to further touch base with lead database administrator. Dialysis catheter placed. Proceeding to dialysis. So far blood pressures are permissive. Zofran as needed for nausea and vomiting, switch to IV. Continue to monitor urine output. Further discussed with cardiology, however, dopamine or dobutamine currently would be risky to start with concern for worsening of her severe MR, risk of pulm edema. Increased midodrine dose, so far with good response and tolerating medication. In case hemodynamic support was needed, Shaquille-Synephrine could be considered. With worsening condition it is not clear that she will regain candidacy for MitraClip. Decrease insulin pramipexole dose. Monitor for risk of hypoglycemia. 2. Hyperkalemia: So far resolved with treatment. But with worsening renal function. Repeat chemistry. Min elev CK. Discussed with nephrology, cardiology team. Discussed with nursing, piano case and bench assembler. 3. Iron deficiency anemia, unspecified iron deficiency anemia type: Reviewed hemoglobin. Appears to be chronic and her hemoglobin is at her baseline. Will continue to monitor. 4. Presence of permanent cardiac pacemaker: Keep on telemetry 5. Acute on chronic diastolic heart failure: Diuretics on hold with worsening renal function. Overall likely without further hypervolemia. He is on baseline oxygen, normally on 3 L. Suspect mitral regurgitation contributing to similar dyspnea. Reviewed cardiology note. 6. Benign essential hypertension with target blood pressure below 140/90: Restart home medication once medication conciliation completed 7. Diabetes: FSBS, sign scale insulin Reduce Lantus dose, monitor for risk of hypoglycemia. 8. Hypothyroidism: TSH mildly elevated Plan: UTI: Repeat UA oil tank car cleaner sample, still more 100 WBC. Requested ceftriaxone. Follow-up urine culture. Possible liver cirrhosis: With nodular contour of the liver suggestive of cirrhosis on review of prior CT. Not aware of past history of cirrhosis appears may be new diagnosis. Reviewed CBC, chemistry. Prior serology with negative hepatitis panel. Does not drink alcohol. I suspect nonalcoholic fatty liver disease basis. Poor appetite: Oral intake is tolerating. Nutritional shakes as tolerated. A-fib: Eliquis on hold PDMP PDMP Reviewed: Not Reviewed Attestations Medical Necessity Statement*: Continue admission for reassessment of renal failure, uremia, volume overload in a lady with additional comorbidities as above. Diagnoses Acute kidney injury superimposed on chronic kidney disease N17.9; N18.9 Hyperkalemia E87.5 Iron deficiency anemia, unspecified iron deficiency anemia type D50.9 Anemia type: iron deficiency Iron deficiency anemia type: unspecified iron deficiency Presence of permanent cardiac pacemaker Z95.0 Acute on chronic diastolic heart failure I50.33 Heart failure chronicity: acute on chronic Benign essential hypertension with target blood pressure below 140/90 I10 Diabetes E11.9 Hypothyroidism E03.9
--- NOTE | 2025-06-23 11:49 | XRR_ITS ---
PROCEDURE INFORMATION: Exam: XR Chest Exam date and time: 06/23/2025 12:55 PM Age: 84 years old Clinical indication: Other vascular access device placement or adjustment; Central line, non-tunnelled; Prior surgery; Surgery date: 6+ months; Surgery type: Pacemaker; RT trialysis cath confirmation; Additional info: Dialysis permacath placement TECHNIQUE: Imaging protocol: Radiologic exam of the chest. Views: 1 view. COMPARISON: CR XR chest 2V insp/exp [id number] 06/21/2025 12:06 PM FINDINGS: Tubes, catheters and devices: Cardiac pacemaker on the left with leads in satisfactory position. A right-sided central line has its tip in good position within the SVC. Lungs: Both lungs demonstrate diffuse interstitial coarsening which is felt to be chronic. No lung mass or infiltrate. Pleural spaces: Unremarkable. No pleural effusion. No pneumothorax. Heart/Mediastinum: Moderate cardiomegaly is noted. Bones/joints: Unremarkable. XR/XR chest 1V portable [id number] IMPRESSION: Good central line positioning with no complication noted
[2025-06-23] MEDS: ondansetron 2 mg/ML SDV 2 mL 4 MG IVP ×2 (12:35→18:18)
--- NOTE | 2025-06-23 12:40 | PM.CONSULT ---
Providers/Reason For Consult Consulting Physician/Specialty*: phillip valdes MD general surgery Reason for Consult*: Evaluate for temporary dialysis catheter Requesting Physician: MD víctor rubber calender helper Attending Physician: Silverio Dominguez Primary Care Provider: Terence Rogers History of Present Illness History of Present Illness Vaibhav Ramsey is a 84 year old female who is in acute renal failure and needs dialysis. She took her apixaban yesterday for history of afib and CAD in past. She has pacer in place. She states she had PE over a year ago. Dr. Cavazos feels it is urgent/emergency to proceed with temp renal catheter even though is anticoagulated and at higher risk of bleeding. Review of Systems Narrative: see others notes Dr. Borja yesterday Medications/Allergies Home Medications ?Medication ?Instructions ?Recorded ?Confirmed ?Last Taken ?Type allopurinol 300 mg tablet 300 mg PO BID 07/31/19 06/17/25 10/29/23 History carbidopa 25 mg-levodopa 100 mg 1 tab PO BID 07/31/19 06/17/25 10/29/23 History tablet cyanocobalamin (vitamin B-12) 1,000 mcg IM Q30D 07/31/19 06/17/25 10/24/23 History 1,000 mcg/mL injection solution oxycodone-acetaminophen 10 mg-325 1 tab PO Q6H PRN Pain, Mild 07/31/19 06/17/25 11/09/22 History mg tablet pramipexole 0.5 mg tablet 2 mg PO BEDTIME 07/31/19 06/17/25 10/28/23 History nitroglycerin 0.4 mg sublingual 0.4 mg sublingual Q5M PRN chest 12/10/19 06/17/25 07/06/20 20:00 Rx tablet pain 30 days #30 tabs post mastectomy Bras #4 ea 01/14/22 06/17/25 Unknown Rx apixaban 2.5 mg tablet 2.5 mg PO BID #90 tabs 03/16/22 06/17/25 10/29/23 Rx levothyroxine 100 mcg tablet 100 mcg PO DAILY 08/30/22 06/17/25 10/29/23 History insulin glargine 100 unit/mL 20 unit SUBCUT BEDTIME 11/09/22 06/17/25 10/28/23 History subcutaneous solution (Lantus U-100 Insulin) zinc acetate 25 mg (zinc) capsule 50 mg PO DAILY 09/26/23 06/17/25 10/29/23 History baclofen 5 mg tablet 5 mg PO BID PRN Spasms 10/29/23 06/17/25 10/29/23 History sertraline 100 mg tablet 100 mg PO DAILY 10/29/23 06/17/25 10/29/23 History pantoprazole 40 mg tablet,delayed 40 mg PO DAILY 11/05/23 06/17/25 Unknown History release metoprolol tartrate 25 mg tablet 25 mg PO BID 08/15/24 06/17/25 Unknown History ascorbic acid (vitamin C) 500 mg 500 mg PO DAILY 06/17/25 06/17/25 Unknown History tablet (Vitamin C) docusate sodium 100 mg capsule 100 mg PO BID 06/17/25 06/17/25 Unknown History (Colace) fluticasone propionate 50 2 spray intranasal BEDTIME 06/17/25 06/17/25 Unknown History mcg/actuation nasal spray,suspension furosemide 40 mg tablet (Lasix) 40 mg PO BID 06/17/25 06/17/25 Unknown History isosorbide mononitrate 120 mg 120 mg PO DAILY 06/17/25 06/17/25 Unknown History tablet,extended release 24 hr meclizine 25 mg tablet 25 mg PO TID PRN Dizziness 06/17/25 06/17/25 Unknown History ondansetron HCl 4 mg tablet 4 mg PO Q6H PRN Nausea 06/17/25 06/17/25 Unknown History pravastatin 40 mg tablet 40 mg PO BEDTIME 06/17/25 06/17/25 Unknown History spironolactone 25 mg tablet 25 mg PO DAILY 06/17/25 06/17/25 Unknown History Allergies Allergy/AdvReac Type Severity Reaction Status Date / Time codeine Allergy patient Verified 02/06/25 08:09 doesn't recall flecainide Allergy severe Verified 02/06/25 08:09 vomiting garlic Allergy Unknown Verified 02/06/25 08:09 Iodinated Contrast Media Allergy renal Verified 02/06/25 08:09 disease naproxen Allergy renal Verified 02/06/25 08:09 disease Penicillins Allergy hives Verified 02/06/25 08:09 shellfish derived Allergy unknown Verified 02/06/25 08:09 Sulfa (Sulfonamide Allergy itching Verified 02/06/25 08:09 Antibiotics) tramadol AdvReac makes me Verified 02/06/25 08:09 crazy Current Medications Generic Name Dose Route Start Last Admin Trade Name Freq PRN Reason Stop Dose Admin Acetaminophen 650 mg 06/16/25 18:35 06/21/25 20:24 Acetaminophen 325 Mg Tablet PO 650 mg Q6H PRN Administration Mild/Mod Pain Or Temp >/= 101 Apixaban 2.5 mg 06/17/25 17:00 06/22/25 05:59 Apixaban 2.5 Mg Tablet PO 2.5 mg On Hold: 06/22/25 12:54 BID GONZALO Administration Atorvastatin Calcium 20 mg 06/17/25 21:00 06/19/25 21:11 Atorvastatin 20 Mg Tablet PO 20 mg On Hold: 06/20/25 17:28 BEDTIME GONZALO Administration Camphor/Menthol/Phenol 1 applic 06/21/25 05:02 06/21/25 05:19 Blistex Lip Oint 7 Gm Tube TOPICAL 1 applic PRN PRN Administration DRYNESS Carbidopa/Levodopa 1 each 06/17/25 17:00 06/23/25 04:51 Carbidopa-Levodopa 25-100mg Tablet PO 1 each BID GONZALO Administration Ergocalciferol 50,000 unit 06/22/25 11:00 06/22/25 10:55 Ergocalciferol (Vitamin D2) 50,000 Unit Capsule PO 50,000 unit Q7D GONZALO Administration Ciprofloxacin/Dextrose 400 mg in 200 mls @ 200 mls/hr 06/22/25 08:15 06/23/25 11:51 Cipro IV Infused Q24H GONZALO Infusion Protocol Ferric Sodium Gluconate 125 mg 110 mls @ 110 mls/hr 06/22/25 10:00 06/23/25 10:46 / Sodium Chloride IV 06/29/25 10:59 100 mls/hr Q24H GONZALO Administration Insulin Glargine 10 unit 06/21/25 21:00 06/22/25 22:10 Insulin Glargine 100 Units/1 Ml SUBCUT 10 unit BEDTIME GONZALO Administration Insulin Human Lispro 0 unit 06/22/25 21:48 06/23/25 11:52 Insulin Lispro 100 Unit/1 Ml SUBCUT Not Given WM&BEDTIME [facility] Protocol Isosorbide Mononitrate 120 mg 06/18/25 05:00 06/20/25 04:58 Isosorbide Mononitrate Er 60 Mg Tablet PO 120 mg On Hold: 06/20/25 17:00 DAILY GONZALO Administration Levothyroxine Sodium 80 mcg 06/23/25 05:00 06/23/25 04:51 Levothyroxine 100 Mcg Sdv IVP 80 mcg DAILY GONZALO Administration Metoprolol Tartrate 12.5 mg 06/21/25 17:00 06/23/25 04:44 Metoprolol Tartrate 25 Mg Tablet PO Not Given BID GONZALO Midodrine 10 mg 06/22/25 21:00 06/23/25 04:51 Midodrine Hcl 10 Mg Tablet PO 10 mg TID GONZALO Administration Oxycodone/Acetaminophen 1 tab 06/22/25 19:20 06/23/25 03:27 Oxycodone-Apap 5-325 Mg Tablet PO 1 tab Q4H PRN Administration MODERATE PAIN Pantoprazole Sodium 40 mg 06/18/25 05:00 06/23/25 04:[address] 40 Mg Tablet PO 40 mg DAILY GONZALO Administration Pramipexole Dihydrochloride 1 mg 06/21/25 21:00 06/22/25 22:08 Pramipexole 0.5 Mg Tablet PO 1 mg BEDTIME GONZALO Administration Sertraline HCl 100 mg 06/18/25 05:00 06/23/25 04:51 Sertraline 100 Mg Tablet PO 100 mg DAILY GONZALO Administration PFSH Acute PFSH: Medical History (Updated 06/23/25 @ 10:05 by Anthony Álvarez MD) Diastolic heart failure Intermittent atrial fibrillation Ascitic fluid Abdominal distention Clear vaginal discharge DNR (do not resuscitate) MATILDA (acute kidney injury) MATILDA (acute kidney injury) Acute UTI Atrial fibrillation Sinus node dysfunction Obstructive sleep apnea Gastritis and duodenitis Enterovirus infection, unspecified CHF exacerbation Community acquired pneumonia Fracture of distal end of right fibula Lung nodule, solitary Restrictive lung disease Restrictive lung disease Transaminitis Mild. Most likely due to passive congestion due her CHF. Lumbar stenosis with neurogenic claudication Difficulty in swallowing High anion gap metabolic acidosis Bilateral renal cysts On multiple imaging modalities all appear simple. No further work-up recommended December 2020 Pacemaker Right bundle branch block Supraventricular tachycardia COVID-19 Elevated troponin Chest pain Chronic respiratory failure with hypoxia and hypercapnia GERD (gastroesophageal reflux disease) Atypical chest pain Cardiac catheter[place] [address] [place]. She had no significant coronary artery disease at that time. Chronic kidney disease Osteoarthritis Syncope Chronic kidney disease -baseline Cr appears to be around 2-2.3 - Symptomatic bradycardia UTI (urinary tract infection) - Bradycardia Anemia -on iron supplementation COPD (chronic obstructive pulmonary disease) Uses 3 L [id number] and BiPAP at night Gout Former smoker Normal coronary angiogram Cardiac angiogram done in September 2015 Chronic back pain History of pulmonary embolism -is on AC with Eliquis Hypothyroidism Type 2 diabetes mellitus Hypertension Diastolic heart failure Chronic anticoagulation Paroxysmal A-fib Surgical History Postoperative state Status post lumbar laminectomy H/O right mastectomy History of tonsillectomy H/O hernia repair H/O colonoscopy 2019 H/O esophagogastroduodenoscopy (~04/2020) 2019 H/O left knee surgery Tubal ligation status History of cholecystectomy Family History Father CAD (coronary artery disease) Family history of premature coronary artery disease Hypertension Mother Cancer Chronic kidney disease (CKD) Hypertension Sister Hyperlipidemia Hypertension Daughter No problems noted. Other Diabetes Social History Smoking and tobacco/nicotine status: former use of tobacco/nicotine Quit status (tobacco/nicotine): has quit using Year quit tobacco: 1971 - 1PPD x 25 Years Alcohol intake: never Substance/Drug Use: never Caregiver/support person: Yes Lives independently: Yes Household members: family Housing: House Marital status: / Current occupational status: retired Do you think of yourself as: Straight/Heterosexual Vitals/I&O/Wt Last Vital Signs Temp 98.2 F 06/23/25 05:00 Pulse 73 06/23/25 07:50 Resp 17 06/23/25 07:50 BP 107/62 06/23/25 07:50 Pulse Ox 95 06/23/25 07:50 O2 Del Method Room Air 06/23/25 07:50 O2 Flow Rate 3 06/22/25 20:00 FiO2 36 06/17/25 20:36 06/22/25 06/23/25 06/23/25 22:59 06:59 14:59 Intake Total 400 / 830 350 / 1180 1200 / 1200 Output Total 150 / 150 Balance 400 / 830 200 / 1030 1200 / 1200 Weight last 48 hrs Weight 162 lb Weight 162 lb Physical Exam Narrative: Patient is a well developed well nourished and in NAD and is afebrile with vitals stable and is answering questions appropriately with a normal affect and is alert and oriented x3 HEENT: normocephalic with normal external ears and nonicteric, oral mucosa moist and dentition normal for age, trachea midline with no large masses visualized Heart: RRR, no gallops murmurs or rubs, normal PMI with no thrills Lungs: normal excursions, no loud audible wheezing, no subcutaneous emphysema Abdomen: nondistended, no gross hepatosplenomegaly, no masses, no rigidity or rebound, no loud borborygmi Neuro: nonfocal, ROSENBERG, grossly normal sensation Musculoskeletal: good muscle tone, no fasciculations Skin: pink warm and dry with no rashes but multiple ecchymosis Vascular: good radial pulses, no ulceration, less than 2 second capillary refill in hand : deferred Urinary Catheter Management: Ferrari: Cath Placed During This Visit: yes Reason for Continuing Indwelling Catheter: Acute Urinary Retention or Obstruction Urinary Catheter Date of Insertion: 06/22/25 Urinary Catheter Time of Insertion: 11:45 Data 06/23/25 04:39 06/23/25 04:39 Micro: Microbiology 06/21/25 16:15 Urine Culture - Preliminary Urine,Clean Catch Gram Negative Rods Gram Negative Rods#2 06/21/25 11:45 Urine Culture - Preliminary Urine,Clean Catch Gram Negative Rods A&P Assessment and plan 1. Acute kidney injury superimposed on chronic kidney disease: Plan: Will proceed with temporary dialysis catheter placement with understanding she is at higher risk for bleeding complications. She understands risks, benefits and alternatives and wishes to proceed. Risks include bleeding, infection, cardiopulmonary problems, PTX, aspiration, mechanical issues, VTE, more surgery, injury to surrounding structures in neck or chest or leg depending where cath is placed. PDMP PDMP Reviewed: Not Reviewed Coding Level of Care Code 26097 Diagnoses Acute kidney injury superimposed on chronic kidney disease N17.9; N18.9
--- NOTE | 2025-06-23 12:47 | PM.OP ---
Operative Report Date of procedure: June 23, 2025 Pre-op diagnosis: Renal failure Post-op diagnosis: same Procedure done: temporary dialysis catheter placement right IJ with US Surgeon: Rocky Coto MD Brief History: Patient with renal failure in need of renal dialysis. Procedure: After prepping and draping the neck right IJ area, patient was placed into trendelenberg position. Local was injucted over the IJ vein. With use of US the vein was cannulated and via Seldinger technique the temporary dialysis catheter was advanced and secured to the skin with 3-0 silk. Good blood return was noted from both ports and then was saline flushed. Area was aseptically dressed. X ray was obtained to check for positioning of catheter with tip in RA/SVC junction and no PTX>
[2025-06-23] MEDS: ferric gluconate 125 MG in sodium chloride 0.9% (100 ml) 100 ML 110 MG IV (15:37)
[2025-06-23] MEDS: PRAMIPEXOLE 0.5 MG TABLET 1 MG PO (20:08)
[2025-06-23] MEDS: LORazepam 2 mg/mL INJ 1 mL 0.5 MG IVP (20:42)
[2025-06-23] MEDS: insulin glargine 100 units/1 mL 10 UNIT SUBCUT (20:47)
[2025-06-24] VITALS (9 sets, daily range): BP systolic 93–141; BP diastolic 44–80; PULSE 58–68; RESP 13–20; TEMP 36.1–36.9; O2SAT 97–100
[2025-06-24] MEDS: carbidopa-levodopa 25-100mg Tablet 1 EACH PO ×2 (05:57→17:08)
[2025-06-24] MEDS: MIDODRINE HCL 10 MG TABLET PO ×3 (05:57→20:16)
--- NOTE | 2025-06-24 10:28 | PM.PN ---
Subjective Subjective: Patient was seen and examined. Patient dialysis yesterday. Patient feels a little better still weak nausea poor appetite short of breath. No chest pain Medications: Reviewed: Yes Medication Review Details: Current Medications Acetaminophen (Acetaminophen 325 Mg Tablet) 650 mg PO Q6H PRN PRN Reason: Mild/Mod Pain Or Temp >/= 101 Last Admin: 06/21/25 20:24 Dose: 650 mg Apixaban (Apixaban 2.5 Mg Tablet) 2.5 mg PO BID GONZALO On Hold: 06/22/25 12:54 Last Admin: 06/22/25 05:59 Dose: 2.5 mg Atorvastatin Calcium (Atorvastatin 20 Mg Tablet) 20 mg PO BEDTIME GONZALO On Hold: 06/20/25 17:28 Last Admin: 06/19/25 21:11 Dose: 20 mg Camphor/Menthol/Phenol (Blistex Lip Oint 7 Gm Tube) 1 applic TOPICAL PRN PRN PRN Reason: DRYNESS Last Admin: 06/21/25 05:19 Dose: 1 applic Carbidopa/Levodopa (Carbidopa-Levodopa 25-100mg Tablet) 1 each PO BID GONZALO Last Admin: 06/24/25 05:57 Dose: 1 each Ergocalciferol (Ergocalciferol (Vitamin D2) 50,000 Unit Capsule) 50,000 unit PO Q7D GONZALO Last Admin: 06/22/25 10:55 Dose: 50,000 unit Glucagon (Glucagon 1 Mg/Ml Kit 1 Ml) 1 mg IM ONCE PRN; Protocol PRN Reason: Adult Acute Hypoglycemia Nursing Prot. Dextrose (D5w) 500 mls @ 0 mls/hr IV ONCE PRN; Protocol PRN Reason: Adult Acute Hypoglycemia Prot Dextrose (D10w) 125 mls @ 750 mls/hr IV PRN PRN; Protocol PRN Reason: Adult Acute Hypoglycemia Nursing Protocol Dextrose (D10w) 250 mls @ 1,000 mls/hr IV PRN PRN; Protocol PRN Reason: Adult Acute Hypoglycemia Nursing Protocol Ciprofloxacin/Dextrose (Cipro) 400 mg in 200 mls @ 200 mls/hr IV Q24H GONZALO; Protocol Last Infusion: 06/24/25 09:51 Dose: Infused Ferric Sodium Gluconate 125 mg (/ Sodium Chloride) 110 mls @ 110 mls/hr IV Q24H GONZALO Stop: 06/29/25 10:59 Last Infusion: 06/23/25 17:14 Dose: Infused Insulin Glargine (Insulin Glargine 100 Units/1 Ml) 10 unit SUBCUT BEDTIME [facility] Last Admin: 06/23/25 20:47 Dose: 10 unit Insulin Human Lispro (Insulin Lispro 100 Unit/1 Ml) 0 unit SUBCUT WM&BEDTIME [facility]; Protocol Last Admin: 06/24/25 07:27 Dose: Not Given Isosorbide Mononitrate (Isosorbide Mononitrate Er 60 Mg Tablet) 120 mg PO DAILY GONZALO On Hold: 06/20/25 17:00 Last Admin: 06/20/25 04:58 Dose: 120 mg Levothyroxine Sodium (Levothyroxine 100 Mcg Sdv) 80 mcg IVP DAILY [facility] Last Admin: 06/24/25 06:01 Dose: 80 mcg Lorazepam (Lorazepam 2 Mg/Ml Inj 1 Ml) 0.5 mg IVP Q4H PRN PRN Reason: NAUSEA Last Admin: 06/23/25 20:42 Dose: 0.5 mg Metoprolol Tartrate (Metoprolol Tartrate 25 Mg Tablet) 12.5 mg PO BID [facility] Last Admin: 06/24/25 05:57 Dose: 12.5 mg Midodrine (Midodrine Hcl 10 Mg Tablet) 10 mg PO TID [facility] Last Admin: 06/24/25 05:57 Dose: 10 mg Ondansetron HCl (Ondansetron 2 Mg/Ml Sdv 2 Ml) 4 mg IVP Q4H PRN PRN Reason: NAUSEA AND VOMITING Last Admin: 06/23/25 18:18 Dose: 4 mg Oxycodone/Acetaminophen (Oxycodone-Apap 5-325 Mg Tablet) 1 tab PO Q4H PRN PRN Reason: MODERATE PAIN Last Admin: 06/23/25 03:27 Dose: 1 tab Pantoprazole Sodium (Pantoprazole Dr 40 Mg Tablet) 40 mg PO DAILY [facility] Last Admin: 06/24/25 05:57 Dose: 40 mg Pramipexole Dihydrochloride (Pramipexole 0.5 Mg Tablet) 1 mg PO BEDTIME [facility] Last Admin: 06/23/25 20:08 Dose: 1 mg Sertraline HCl (Sertraline 100 Mg Tablet) 100 mg PO DAILY [facility] Last Admin: 06/24/25 05:57 Dose: 100 mg Sevelamer Carbonate (Sevelamer 800 Mg Tablet) 1,600 mg PO TIDWM [facility] Last Admin: 06/24/25 08:44 Dose: 1,600 mg Vitals/I&O/Wt Last Vital Signs Temp 97.5 F L 06/24/25 07:26 Pulse 60 06/24/25 07:26 Resp 20 H 06/24/25 07:26 BP 127/70 06/24/25 07:26 Pulse Ox 99 06/24/25 07:26 O2 Del Method Nasal Cannula 06/24/25 07:26 O2 Flow Rate 3 06/24/25 08:00 FiO2 36 06/17/25 20:36 06/23/25 06/24/25 06/24/25 22:59 06:59 14:59 Intake Total 110 / 1810 240 / 2050 200 / 200 Output Total 260 / 1760 Balance 110 / 310 -20 / 290 200 / 200 Weight last 48 hrs Weight 74.843 kg Weight 75 kg Weight 73.482 kg Physical Exam Narrative: Patient is sitting up in bed at a high angle, vital signs noted. Patient requiring nasal cannula oxygen. HEENT normocephalic atraumatic. Neck is supple. Has a right neck dialysis catheter Lungs still have basal dullness and crackles improved from yesterday Heart has a murmur is regular positive S1-S2. Abdomen is soft, nontender, positive distended with ascites. Extremities -b/l leg 1+ edema Neuro - more awake remains lethargic and weak follows commands and interactive. Urinary Catheter Management: Ferrari: Cath Placed During This Visit: yes Reason for Continuing Indwelling Catheter: Acute Urinary Retention or Obstruction Urinary Catheter Date of Insertion: 06/22/25 Urinary Catheter Time of Insertion: 11:45 Data 06/23/25 04:39 06/23/25 04:39 Micro: Microbiology 06/21/25 11:45 Urine Culture - Final Urine,Clean Catch Escherichia coli 06/21/25 16:15 Urine Culture - Preliminary Urine,Clean Catch Gram Negative Rods Gram Negative Rods#2 A&P Assessment and plan 1. Acute kidney injury superimposed on chronic kidney disease: 84-year-old lady with baseline creatinine 1.1 mg/dL giving her mild CKD stage IIIa. Patient has heart failure preserved EF, coronary artery disease, intermittent atrial fibrillation, Moderate to severe mitral regurgitation. Patient was admitted with worsening shortness of breath patient was given diuretics. Patient has had hypotension patient has developed acute kidney injury between June 17 and June 18 and it continues with an oliguric renal failure 1. Oliguric acute kidney injury- Patient likely has ATN versus cardiorenal syndrome. - We initiated dialysis yesterday. Repeat dialysis today. Thank you Dr. Coto for placing the line. Follow-up serologies are still pending normal complements. Repeat labs are pending 2 Echo reviewed patient has heart failure preserved EF grade 2 out of 4 diastolic dysfunction severe MR pulmonary hypertension tricuspid regurgitation mild AI. 3.Replace vitamin D. 4. Patient has mild anemia appears stable her thrombocytopenia has improved. Iron saturation 8.4% ferritin 173 will give IV iron. Hemoglobin stable status post dialysis 5. Hyponatremia from renal insufficiency Hyperphosphatemia from renal failure should improve with dialysis and a phosphate binder TSH of a cortisol level 19.79. Patient was seen and examined using A/V equipment. The case was discussed in detail with the patient, her nurse and her son. The patient and family consented to telehealth and to dialysis. Plan: As above. PDMP PDMP Reviewed: Not Reviewed Attestations Medical Necessity Statement*: Acute kidney injury shortness of breath Time Spent in Patient Care: 16 - 35 minutes (>than 50% of time spent in counselling and/or direct pt care on unit). Coding Level of Care Code Acute Code for Chg Fwd Diagnoses Acute kidney injury superimposed on chronic kidney disease N17.9; N18.9
[2025-06-24 10:52] LABS: Hematocrit 39.8 % (36-47); Hemoglobin 11.60 g/dL (11.27-16.99); Mean Corpuscular HGB Conc 29.1 g/dL (30-55); Mean Corpuscular Hemoglobin 28.6 pg (27-33); Mean Corpuscular Volume 98.3 fl (85-98); Nucleated Red Blood Cells % 0.2 %; Platelet Count 151 10^3/cmm (157-399); Red Blood Count 4.05 10^6/uL (3.85-5.65); White Blood Count 10.42 10^3/uL (3.29-11.43)
[2025-06-24 11:14] LABS: Alanine Aminotransferase 10 U/L (0-33); Albumin Level 3.4 g/dL (3.5-5.2); Alkaline Phosphatase 265 U/L (35-105); Blood Urea Nitrogen 74 mg/dL (8-23); Calcium 8.2 mg/dL (8.5-10.5); Carbon Dioxide 22 mmol/L (22-29); Chloride 96 mmol/L (98-107); Globulin 2.4 g/dL (1.3-4.6); Glucose 80 mg/dL (65-115); Magnesium 2.7 mg/dL (1.7-2.3); Osmolality Calculated 301 mOsm/kg (285-295); Sodium 135 mmol/L (136-145); Total Protein 5.8 g/dL (6.6-8.7)
[2025-06-24] MEDS: ferric gluconate 125 MG in sodium chloride 0.9% (100 ml) 100 ML 110 MG IV (11:16)
[2025-06-24 11:47] LABS: Anion Gap 22.1 (5-19); Aspartate Amino Transferase 72 U/L (0-32); Potassium 5.1 mmol/L (3.5-5.1)
--- NOTE | 2025-06-24 12:00 | P.PN_ITS ---
Subjective 2 Subjective: Received dialysis last night. Today she is feeling better. Nausea and vomiting resolved. Still weak. Vitals/I&O/Wt Last Vital Signs Temp 97.2 F L 06/24/25 11:44 Pulse 68 06/24/25 11:44 Resp 18 06/24/25 11:44 BP 131/66 06/24/25 11:44 Pulse Ox 98 06/24/25 11:41 O2 Del Method Nasal Cannula 06/24/25 11:41 O2 Flow Rate 3 06/24/25 08:00 FiO2 36 06/17/25 20:36 06/23/25 06/24/25 06/24/25 22:59 06:59 14:59 Intake Total 110 / 1810 240 / 2050 200 / 200 Output Total 260 / 1760 Balance 110 / 310 -20 / 290 200 / 200 Weight last 48 hrs Weight 74.843 kg Weight 75 kg Weight 73.482 kg Physical Exam 2 Narrative: Accompanied by her grandson. Const: COMMON NORMALS: patient oriented x3 and alert GENERAL APPEARANCE: c ooperative ORIENTATION/CONSCIOUSNESS: Yes awake HENMT: COMMON NORMALS: oropharynx normal OTHER: Right IJ HDC Neck/C-Spine: COMMON NORMALS: no JVD Resp: COMMON NORMALS: normal respiratory effort and clear to auscultation bilaterally AUSCULTATION: clear to auscultation bilaterally Cardio: COMMON NORMALS: no JVD, regular rhythm, S1 normal heart sound present, S2 normal heart sound present and No murmurs present (Cardio) RHYTHM: regular rhythm HEART SOUNDS: S1 normal heart sound present and S2 normal heart sound present GI: COMMON NORMALS: Normal to inspection, nondistended, normoactive bowel sounds present, Soft to palpation and non-tender INSPECTION: Yes abdominal distension PALPATION: Yes Soft to palpation Extremity: COMMON NORMALS: no joint enlargement and no pedal edema GENERAL: Yes edema (Trace) Neuro: COMMON NORMALS: patient oriented x3 and moves all extremities S ENSORIUM/ORIENTATION: Yes alert Skin: COMMON NORMALS: no rashes or lesions noted GENERAL SKIN EXAM: no rashes or lesions noted Urinary Catheter Management: Ferrari: Cath Placed During This Visit: yes Reason for Continuing Indwelling Catheter: Acute Urinary Retention or Obstruction Urinary Catheter Date of Insertion: 06/22/25 Urinary Catheter Time of Insertion: 11:45 Data 06/24/25 10:37 06/24/25 10:37 Micro: Microbiology 06/21/25 11:45 Urine Culture - Final Urine,Clean Catch Escherichia coli 06/21/25 16:15 Urine Culture - Preliminary Urine,Clean Catch Gram Negative Rods Gram Negative Rods#2 A&P Assessment and plan 1. Acute kidney injury superimposed on chronic kidney disease: Underwent dialysis last night. 1 L removed. Today she is feeling better. Uremic symptoms abating. Nausea and vomiting so far resolved. Subjectively feels better. Blood pressure so far tolerating dialysis. This afternoon 131/66 Reviewed intake and output, chemistry. Reviewed nephrology note. This morning labs delayed due to difficulties with blood draws. Poor peripheral access. Per discussion with his grandson request is made for PICC line. Continue to monitor urine output. Discussed with nursing, field case manager. Requiring at least short-term dialysis, but cannot exclude need for long-term dialysis as also discussed with her and her family. Further discussed with cardiology, however, dopamine or dobutamine currently would be risky to start with concern for worsening of her severe MR, risk of pulm edema. Increased midodrine dose, so far with good response and tolerating medication. In case hemodynamic support was needed, Shaquille-Synephrine could be considered. With worsened condition not a candidate for MitraClip. 2. Hyperkalemia: So far resolved with treatment. But with worsening renal function. Repeat chemistry. Min elev CK. 3. Iron deficiency anemia, unspecified iron deficiency anemia type: Reviewed hemoglobin. Appears to be chronic and her hemoglobin is at her baseline. Will continue to monitor. 4. Presence of permanent cardiac pacemaker: Keep on telemetry 5. Acute on chronic diastolic heart failure: Diuretics on hold with worsening renal function. Overall likely without further hypervolemia. He is on baseline oxygen, normally on 3 L. Suspect mitral regurgitation contributing to similar dyspnea. Reviewed cardiology note. 6. Benign essential hypertension with target blood pressure below 140/90: Restart home medication once medication conciliation completed 7. Diabetes: FSBS, sign scale insulin Reduce Lantus dose, monitor for risk of hypoglycemia. 8. Hypothyroidism: TSH noted with worsened elevation. Possibly absorbing levothyroxine well. Switched to IV levothyroxine. Continue IV for now. Continue volume optimization, dialysis. Plan: UTI: Repeat UA wool cleaner sample, still more 100 WBC. Continue ceftriaxone. Reviewed urine culture. Noted growing gram-negative rods x 2. More than 100,000. Pansensitive E. coli in initial urine culture. Possible liver cirrhosis: With nodular contour of the liver suggestive of cirrhosis on review of prior CT. Not aware of past history of cirrhosis appears may be new diagnosis. Prior serology with negative hepatitis panel. Does not drink alcohol. I suspect nonalcoholic fatty liver disease basis. Poor appetite: Oral intake is tolerating. Nutritional shakes as tolerated. A-fib: Eliquis on hold. Resume metoprolol. Monitor for risk of hypotension PDMP PDMP Reviewed: Not Reviewed Attestations 2 Medical Necessity Statement*: Continue admission for reassessment of renal failure, uremia, volume overload in a lady with additional comorbidities as above. and High MDM includes amount and/or complexity of data reviewed/ordered [ resulted lab(s)/test(s), ordered lab(s)/test(s) and other healthcare professional discussion] and described risk of complication, morbidity or mortality of management as documented Diagnoses Acute kidney injury superimposed on chronic kidney disease N17.9; N18.9 Hyperkalemia E87.5 Iron deficiency anemia, unspecified iron deficiency anemia type D50.9 Anemia type: iron deficiency Iron deficiency anemia type: unspecified iron deficiency Presence of permanent cardiac pacemaker Z95.0 Acute on chronic diastolic heart failure I50.33 Heart failure chronicity: acute on chronic Benign essential hypertension with target blood pressure below 140/90 I10 Diabetes E11.9 Hypothyroidism E03.9
--- NOTE | 2025-06-24 12:44 | XR_ITS ---
WS: [id number] PORTABLE CHEST x 2 HISTORY: Post PICC insertion COMPARISON: 06/23/2025 Right-sided PICC line insertion. Tip of the PICC line is difficult to see but does appear to be in the mid SVC. The tip does not extend into the RIGHT heart. Patient also has a dialysis catheter and a LEFT subclavian defibrillator. Mild pulmonary edema. Subsegmental atelectasis central LEFT lung. Small LEFT pleural effusion suspected. Cardiac size: Moderately enlarged cardiac silhouette. Mitral annular valve calcification. Mediastinum/Aorta: Mild widening of the mediastinum. No osseous abnormality seen. XR/XR chest 1V portable [id number] IMPRESSION: Satisfactory position of the right-sided PICC line.
--- NOTE | 2025-06-24 12:49 | PC.SOCIAL ---
IMM Update pg 2 of IMM updated and reviewed w/ patient. Copy provided and copy dated, initialed and placed in chart.
--- NOTE | 2025-06-24 13:04 | P.PN_ITS ---
<Statement entered by Marbella Ardon MD - 06/26/25 22:46> Patient was evaluated and cared for in conjunction with an advanced practice practitioner. I personally examined the patient and reviewed the chart and all pertinent data including imaging, telemetry, and laboratory results. I discussed the patient in detail with the advanced practice practitioner. Please see their note for complete H&P testing result and agreed upon plan of care for the patient. Subjective 2 Subjective: Patient had dialysis yesterday. Creatinine improved at 4.9. Currently still making urine. Vitals are stable. Diuretics are still on hold. Vitals/I&O/Wt Last Vital Signs Temp 97.2 F L 06/24/25 11:44 Pulse 68 06/24/25 11:44 Resp 18 06/24/25 11:44 BP 131/66 06/24/25 11:44 Pulse Ox 98 06/24/25 11:41 O2 Del Method Nasal Cannula 06/24/25 11:41 O2 Flow Rate 3 06/24/25 08:00 FiO2 36 06/17/25 20:36 06/23/25 06/24/25 06/24/25 22:59 06:59 14:59 Intake Total 110 / 1810 240 / 2050 430 / 430 Output Total 260 / 1760 Balance 110 / 310 -20 / 290 430 / 430 Weight last 48 hrs Weight 165 lb Weight 165 lb 5.547 oz Weight 162 lb Physical Exam 2 Narrative: General: No apparent distress Muskuloskeletal: Full ROM Respiratory: Normal respiratory effort, right clear, left posterior lower lobes coarse crackles Cardio: No JVD, regular rate, regular rhythm, S1 S2 normal, grade II/ murmur mitral space, peripheral pulses 2+ radial palpated bilaterally GI: Normal to inspection, nondistended Extremities: Full ROM, normal, normal capillary refill, no cyanosis, 1+ nonpitting edema bilateral lower extremities Neuro: Alert and oriented x4, no focal motor deficits Psych: Affect normal, denies suicidal ideation, mental status grossly normal Skin: No rashes or lesions noted, no wounds Urinary Catheter Management: Ferrari: Cath Placed During This Visit: yes Reason for Continuing Indwelling Catheter: Acute Urinary Retention or Obstruction Urinary Catheter Date of Insertion: 06/22/25 Urinary Catheter Time of Insertion: 11:45 Data 06/24/25 10:37 06/24/25 10:37 Micro: Microbiology 06/21/25 11:45 Urine Culture - Final Urine,Clean Catch Escherichia coli 06/21/25 16:15 Urine Culture - Preliminary Urine,Clean Catch Gram Negative Rods Gram Negative Rods#2 A&P Assessment and plan 1. Elevated troponin: 2. Intermittent atrial fibrillation: 3. Acute kidney injury superimposed on chronic kidney disease: 4. Hypotension: 5. Presence of permanent cardiac pacemaker: 6. Severe mitral valve regurgitation: 7. Acute on chronic heart failure with preserved ejection fraction: Plan: Patient got dialysis yesterday per nephrologys. Continue to hold diuretics at this time. Patient may need mitraclip in the future on an outpatient basis. PDMP PDMP Reviewed: Not Reviewed Attestations 2 Medical Necessity Statement*: Deferred to primary Coding Level of Care Code Acute Code for Chg Fwd Diagnoses Elevated troponin R79.89 Intermittent atrial fibrillation I48.0 Acute kidney injury superimposed on chronic kidney disease N17.9; N18.9 Hypotension I95.9 Presence of permanent cardiac pacemaker Z95.0 Severe mitral valve regurgitation I34.0 Acute on chronic heart failure with preserved ejection fraction I50.33
--- NOTE | 2025-06-24 14:09 | PICC.NOTE ---
Double lumen PICC placed to left basilic vein. Referred to vascular access nurse for PICC placement due to poor access. Risks and benefits discussed and informed consent obtained from pt roxy at bedside. Pt with history of right mastectomy with lymph node dissection. Left arm assessed with left basilic vein measuring 4.2 mm, straight, and apparent best choice for placement. Using sterile technique and MST, left basilic vein accessed x 1 stick. Mid-arm circumference measured 10 cm from left AC 36 cm. Trimmed cath 38 cm with 0 cm external length noted. CXR shows tip in SVC, in satisfactory position for use per radiologist. Line secured with stat-lock. Insertion site covered with Biopatch and TSM. Report given to bedside nurse, WILFRIDO Alonzo.
[2025-06-24 15:24] LABS: Glomerular Bsmt Membrane IGG <1.0 AI
[2025-06-24] MEDS: PRAMIPEXOLE 0.5 MG TABLET 1 MG PO (20:16)
[2025-06-24] MEDS: ondansetron 2 mg/ML SDV 2 mL 4 MG IVP (20:21)
[2025-06-25] VITALS (7 sets, daily range): BP systolic 93–121; BP diastolic 43–79; PULSE 59–67; RESP 16–22; TEMP 36.3–36.8; O2SAT 95–100
[2025-06-25] MEDS: carbidopa-levodopa 25-100mg Tablet 1 EACH PO ×2 (04:27→16:49)
[2025-06-25] MEDS: MIDODRINE HCL 10 MG TABLET PO ×3 (04:28→21:42)
[2025-06-25 07:07] LABS: Hematocrit 39.0 % (36-47); Hemoglobin 11.50 g/dL (11.27-16.99); Mean Corpuscular HGB Conc 29.5 g/dL (30-55); Mean Corpuscular Hemoglobin 28.5 pg (27-33); Mean Corpuscular Volume 96.5 fl (85-98); Nucleated Red Blood Cells % 0.2 %; Platelet Count 147 10^3/cmm (157-399); Red Blood Count 4.04 10^6/uL (3.85-5.65); White Blood Count 13.04 10^3/uL (3.29-11.43)
[2025-06-25] MEDS: ondansetron 2 mg/ML SDV 2 mL 4 MG IVP ×3 (07:47→16:49)
[2025-06-25 10:00] LABS: ANCA Screen NEGATIVE (NEGATIVE)
[2025-06-25 10:52] LABS: Alanine Aminotransferase 16 U/L (0-33); Albumin Level 3.3 g/dL (3.5-5.2); Alkaline Phosphatase 264 U/L (35-105); Anion Gap 19.8 (5-19); Aspartate Amino Transferase 71 U/L (0-32); Blood Urea Nitrogen 64 mg/dL (8-23); Calcium 8.0 mg/dL (8.5-10.5); Carbon Dioxide 25 mmol/L (22-29); Chloride 98 mmol/L (98-107); Globulin 2.2 g/dL (1.3-4.6); Glucose 141 mg/dL (65-115); Magnesium 2.6 mg/dL (1.7-2.3); Osmolality Calculated 307 mOsm/kg (285-295); Potassium 4.8 mmol/L (3.5-5.1); Sodium 138 mmol/L (136-145); Total Protein 5.5 g/dL (6.6-8.7)
--- NOTE | 2025-06-25 11:08 | P.PN_ITS ---
<Statement entered by Uziel Ramos M.D - 07/04/25 10:42> Patient was cared for in conjunction with an advanced practice practitioner.? I reviewed the chart and all pertinent data including imaging, telemetry, and laboratory results.? I discussed the patient in detail with the advanced practice practitioner.? Please see? their documentation for progress note, testing results and agreed upon plan of care for the patient. Patient may not be a candidate for mitraclip as also has mitral stenosis. Subjective 2 Subjective: Patient had dialysis yesterday. Patient did have a small amount of bright red blood per rectum, appeared to be hemorrhoids. Notify Dr. Dominguez. Patient has no complaints today. Vitals/I&O/Wt Last Vital Signs Temp 97.7 F 06/25/25 07:26 Pulse 60 06/25/25 07:26 Resp 22 H 06/25/25 07:26 BP 99/57 06/25/25 07:26 Pulse Ox 99 06/25/25 07:26 O2 Del Method Nasal Cannula 06/25/25 07:26 O2 Flow Rate 3 06/25/25 08:00 FiO2 36 06/17/25 20:36 06/24/25 06/25/25 06/25/25 22:59 06:59 14:59 Intake Total 410 / 1340 320 / 320 Output Total 75 / 2075 Balance 410 / -660 -75 / -735 320 / 320 Weight last 48 hrs Weight 169 lb 1 oz Weight 165 lb 2.02 oz Weight 165 lb Weight 165 lb 5.547 oz Physical Exam 2 Narrative: General: No apparent distress Muskuloskeletal: Full ROM Respiratory: Normal respiratory effort, right clear, left posterior lower lobes coarse crackles Cardio: No JVD, regular rate, regular rhythm, S1 S2 normal, grade II/ murmur mitral space, peripheral pulses 2+ radial palpated bilaterally GI: Normal to inspection, nondistended Extremities: Full ROM, normal, normal capillary refill, no cyanosis, 1+ nonpitting edema bilateral lower extremities Neuro: Alert and oriented x4, no focal motor deficits Psych: Affect normal, denies suicidal ideation, mental status grossly normal Skin: No rashes or lesions noted, no wounds Urinary Catheter Management: Ferrari: Cath Placed During This Visit: yes Reason for Continuing Indwelling Catheter: Acute Urinary Retention or Obstruction Urinary Catheter Date of Insertion: 06/22/25 Urinary Catheter Time of Insertion: 11:45 Data 06/25/25 06:51 06/25/25 10:24 A&P Assessment and plan 1. Elevated troponin: 2. Intermittent atrial fibrillation: 3. Acute kidney injury superimposed on chronic kidney disease: 4. Hypotension: 5. Presence of permanent cardiac pacemaker: 6. Severe mitral valve regurgitation: 7. Acute on chronic heart failure with preserved ejection fraction: Plan: Patient got dialysis yesterday per nephrologys. Continue to hold diuretics at this time. Patient may need mitraclip in the future on an outpatient basis. Patient had bright red blood per rectum. Eliquis is on hold for now. Restart as soon as deemed ok by primary. PDMP PDMP Reviewed: Not Reviewed Attestations 2 Medical Necessity Statement*: Deferred to primary. Coding Level of Care Code Acute Code for [facility] Fwd Diagnoses Elevated troponin R79.89 Intermittent atrial fibrillation I48.0 Acute kidney injury superimposed on chronic kidney disease N17.9; N18.9 Hypotension I95.9 Presence of permanent cardiac pacemaker Z95.0 Severe mitral valve regurgitation I34.0 Acute on chronic heart failure with preserved ejection fraction I50.33
[2025-06-25] MEDS: ferric gluconate 125 MG in sodium chloride 0.9% (100 ml) 100 ML 110 MG IV (11:10)
--- NOTE | 2025-06-25 19:24 | PM.PN ---
Subjective Subjective: She is feeling a little worse today. Vitals/I&O/Wt Last Vital Signs Temp 97.6 F 06/25/25 15:31 Pulse 60 06/25/25 15:31 Resp 16 06/25/25 15:31 BP 120/61 06/25/25 15:31 Pulse Ox 98 06/25/25 15:31 O2 Del Method Nasal Cannula 06/25/25 15:31 O2 Flow Rate 3 06/25/25 08:00 FiO2 36 06/17/25 20:36 06/25/25 06/25/25 06/25/25 06:59 14:59 22:59 Intake Total 490 / 490 120 / 610 Output Total 75 / 2075 Balance -75 / -735 490 / 490 120 / 610 Weight last 48 hrs Weight 76.685 kg Weight 74.9 kg Weight 74.843 kg Physical Exam Narrative: Accompanied by her grandson. Const: COMMON NORMALS: patient oriented x3 and alert GENERAL APPEARANCE: cooperative ORIENTATION/CONSCIOUSNESS: Yes awake HENMT: COMMON NORMALS: oropharynx normal OTHER: Right IJ HDC Neck/C-Spine: COMMON NORMALS: no JVD Resp: COMMON NORMALS: normal respiratory effort and clear to auscultation bilaterally AUSCULTATION: clear to auscultation bilaterally Cardio: COMMON NORMALS: no JVD, regular rhythm, S1 normal heart sound present, S2 normal heart sound present and No murmurs present (Cardio) RHYTHM: regular rhythm HEART SOUNDS: S1 normal heart sound present and S2 normal heart sound present GI: COMMON NORMALS: Normal to inspection, nondistended, normoactive bowel sounds present, Soft to palpation and non-tender INSPECTION: Yes abdominal distension PALPATION: Yes Soft to palpation Extremity: COMMON NORMALS: no joint enlargement and no pedal edema NARRATIVE EXTREMITY EXAM: L arm PICC GENERAL: Yes edema (Trace) Neuro: COMMON NORMALS: patient oriented x3 and moves all extremities SENSORIUM/ORIENTATION: Yes alert Skin: COMMON NORMALS: no rashes or lesions noted GENERAL SKIN EXAM: no rashes or lesions noted Urinary Catheter Management: Ferrari: Cath Placed During This Visit: yes Reason for Continuing Indwelling Catheter: Acute Urinary Retention or Obstruction Urinary Catheter Date of Insertion: 06/22/25 Urinary Catheter Time of Insertion: 11:45 Data 06/25/25 06:51 06/25/25 10:24 Micro: Microbiology 06/21/25 16:15 Urine Culture - Final Urine,Clean Catch Klebsiella pneumoniae Escherichia coli A&P Assessment and plan 1. Acute kidney injury superimposed on chronic kidney disease: Difficulties with blood draw this morning, PICC line placed due to difficult access, however, sample from PICC line hemolyzed. Still had to be drawn peripherally. Recent. Discussed with tester operator helper, further assessment today to determine whether proceed with additional dialysis versus reassess kidney function for any improvement. Pending nephrology reassessment. Discussed with nursing, piano case and bench assembler. Reviewed intake and output, chemistry. Continue to monitor urine output. Further discussed with cardiology, however, dopamine or dobutamine currently would be risky to start with concern for worsening of her severe MR, risk of pulm edema. Increased midodrine dose, so far with good response and tolerating medication. In case hemodynamic support was needed, Shaquille-Synephrine could be considered. With worsened condition not a candidate for MitraClip. 2. Acute on chronic diastolic heart failure: Diuretics on hold with worsening renal function. Overall likely without further hypervolemia. She is on baseline oxygen, normally on 3 L. Suspect mitral regurgitation contributing to similar dyspnea. Dialysis as per renal response. 3. Bright red blood per rectum: Small amount of red blood per rectum noted with stool today. Eliquis has been on hold, will not resume at this time. Reassess hemoglobin. Possible hemorrhoidal bleed. She has been having constipation with hard stool; stool softener was added, escalated today. 4. Hyperkalemia: So far resolved with treatment. But with worsening renal function. Repeat chemistry. Min elev CK. 5. Iron deficiency anemia, unspecified iron deficiency anemia type: Reviewed hemoglobin. Has been staying steady. Appears to be chronic and her hemoglobin is at her baseline. Will continue to monitor. 6. Presence of permanent cardiac pacemaker: Keep on telemetry 7. Benign essential hypertension with target blood pressure below 140/90: Restart home medication once medication conciliation completed 8. Diabetes: FSBS, sign scale insulin Reduce Lantus dose, monitor for risk of hypoglycemia. 9. Hypothyroidism: TSH noted with worsened elevation. Possibly absorbing levothyroxine well. Switched to IV levothyroxine. Continue IV for now. Continue volume optimization, dialysis. Plan: UTI: Reviewed repeat culture, noted pansensitive Klebsiella and E. coli. Continue ceftriaxone. Reviewed urine culture. Noted growing gram-negative rods x 2. More than 100,000. Pansensitive E. coli in initial urine culture. Reviewed CBC, with leukocytosis of 13. Possible liver cirrhosis: With nodular contour of the liver suggestive of cirrhosis on review of prior CT. Not aware of past history of cirrhosis appears may be new diagnosis. Prior serology with negative hepatitis panel. Does not drink alcohol. I suspect nonalcoholic fatty liver disease basis. Poor appetite: Oral intake is tolerating. Nutritional shakes as tolerated. A-fib: Eliquis on hold. Resume metoprolol. Monitor for risk of hypotension PDMP PDMP Reviewed: Not Reviewed Attestations Medical Necessity Statement*: Continue admission for reassessment of renal failure, volume overload in a lady with additional comorbidities as above. and High MDM includes amount and/or complexity of data reviewed/ordered [ resulted lab(s)/test(s), ordered lab(s)/test(s) and other healthcare professional discussion] and described risk of complication, morbidity or mortality of management as documented Diagnoses Acute kidney injury superimposed on chronic kidney disease N17.9; N18.9 Acute on chronic diastolic heart failure I50.33 Heart failure chronicity: acute on chronic Bright red blood per rectum K62.5 Hyperkalemia E87.5 Iron deficiency anemia, unspecified iron deficiency anemia type D50.9 Anemia type: iron deficiency Iron deficiency anemia type: unspecified iron deficiency Presence of permanent cardiac pacemaker Z95.0 Benign essential hypertension with target blood pressure below 140/90 I10 Diabetes E11.9 Hypothyroidism E03.9
--- NOTE | 2025-06-25 19:58 | P.PN_ITS ---
Subjective 2 Subjective: events noted Medications: Reviewed: Yes Vitals/I&O/Wt Last Vital Signs Temp 97.6 F 06/25/25 15:31 Pulse 60 06/25/25 15:31 Resp 16 06/25/25 15:31 BP 120/61 06/25/25 15:31 Pulse Ox 98 06/25/25 15:31 O2 Del Method Nasal Cannula 06/25/25 15:31 O2 Flow Rate 3 06/25/25 08:00 FiO2 36 06/17/25 20:36 06/25/25 06/25/25 06/25/25 06:59 14:59 22:59 Intake Total 490 / 490 120 / 610 Output Total 75 / 2075 Balance -75 / -735 490 / 490 120 / 610 Weight last 48 hrs Weight 76.685 kg Weight 74.9 kg Weight 74.843 kg Physical Exam 2 Narrative: Patient is sitting up in bed], vital signs noted. Patient requiring nasal cannula oxygen. HEENT normocephalic atraumatic. Neck is supple. Has a right neck dialysis catheter Lungs still have basal dullness and crackles improved from yesterday Heart has a murmur is regular positive S1-S2. Abdomen is soft, nontender, positive distended with ascites. Extremities -b/l leg 1+ edema Neuro - more awake remains lethargic and weak follows commands and interactive. Urinary Catheter Management: Ferrari: Cath Placed During This Visit: yes Reason for Continuing Indwelling Catheter: Acute Urinary Retention or Obstruction Urinary Catheter Date of Insertion: 06/22/25 Urinary Catheter Time of Insertion: 11:45 Data 06/26/25 06:20 06/26/25 10:15 Micro: Microbiology 06/21/25 16:15 Urine Culture - Final Urine,Clean Catch Klebsiella pneumoniae Escherichia coli A&P Assessment and plan 1. Acute kidney injury superimposed on chronic kidney disease: 84-year-old lady with baseline creatinine 1.1 mg/dL giving her mild CKD stage IIIa. Patient has heart failure preserved EF, coronary artery disease, intermittent atrial fibrillation, Moderate to severe mitral regurgitation. Patient was admitted with worsening shortness of breath patient was given diuretics. Patient has had hypotension patient has developed acute kidney injury between June 17 and June 18 and it continues with an oliguric renal failure 1. Oliguric acute kidney injury- Patient likely has ATN versus cardiorenal syndrome. -HD started and underwent 2 sessions, assess daily for HD needs, urine output remains low Follow-up serologies are still pending normal complements. 2 CHF: Diastolic heart function, with severe MR from pulmonary hypertension and tricuspid regurgitation 3.vitamin D deficiency, replete 4. Patient has mild anemia appears stable her thrombocytopenia has improved. Iron saturation 8.4% ferritin 173 will give IV iron. Hemoglobin stable status post dialysis, improved 5. Hyponatremia, improved . Patient was seen and examined using A/V equipment. The case was discussed in detail with the patient, her nurse and her son. The patient and family consented to telehealth and to dialysis. Plan: As above. PDMP PDMP Reviewed: Not Reviewed Attestations 2 Medical Necessity Statement*: per medicne team Coding Level of Care Code Acute Code for Chg Fwd Diagnoses Acute kidney injury superimposed on chronic kidney disease N17.9; N18.9
[2025-06-25 20:11] LABS: Hemoglobin 12.10 g/dL (11.27-16.99)
[2025-06-25] MEDS: PRAMIPEXOLE 0.5 MG TABLET 1 MG PO (21:42)
[2025-06-25] MEDS: insulin glargine 100 units/1 mL 10 UNIT SUBCUT (21:43)
[2025-06-26] VITALS (11 sets, daily range): BP systolic 99–147; BP diastolic 48–73; PULSE 59–88; RESP 14–18; TEMP 34.4–36.8; O2SAT 95–100
[2025-06-26] MEDS: ondansetron 2 mg/ML SDV 2 mL 4 MG IVP ×3 (02:47→20:34)
[2025-06-26] MEDS: MIDODRINE HCL 10 MG TABLET PO ×3 (06:08→20:34)
[2025-06-26] MEDS: carbidopa-levodopa 25-100mg Tablet 1 EACH PO ×2 (06:09→17:48)
[2025-06-26 06:42] LABS: Hematocrit 39.1 % (36-47); Hemoglobin 11.90 g/dL (11.27-16.99); Mean Corpuscular HGB Conc 30.4 g/dL (30-55); Mean Corpuscular Hemoglobin 29.1 pg (27-33); Mean Corpuscular Volume 95.6 fl (85-98); Nucleated Red Blood Cells % 0.5 %; Platelet Count 134 10^3/cmm (157-399); Red Blood Count 4.09 10^6/uL (3.85-5.65); White Blood Count 13.28 10^3/uL (3.29-11.43)
[2025-06-26 10:55] LABS: Alanine Aminotransferase 25 U/L (0-33); Albumin Level 3.5 g/dL (3.5-5.2); Alkaline Phosphatase 278 U/L (35-105); Anion Gap 21.9 (5-19); Aspartate Amino Transferase 71 U/L (0-32); Blood Urea Nitrogen 76 mg/dL (8-23); Calcium 8.8 mg/dL (8.5-10.5); Carbon Dioxide 23 mmol/L (22-29); Chloride 96 mmol/L (98-107); Globulin 2.5 g/dL (1.3-4.6); Glucose 151 mg/dL (65-115); Magnesium 2.9 mg/dL (1.7-2.3); Osmolality Calculated 308 mOsm/kg (285-295); Potassium 4.9 mmol/L (3.5-5.1); Sodium 136 mmol/L (136-145); Total Protein 6.0 g/dL (6.6-8.7)
[2025-06-26] MEDS: ferric gluconate 125 MG in sodium chloride 0.9% (100 ml) 100 ML 110 MG IV (11:17)
[2025-06-26] MEDS: heparin, porcine 1,000 unit/mL INJ 10 mL 1000 UNIT IV (13:54)
--- NOTE | 2025-06-26 14:01 | P.PN_ITS ---
Subjective 2 Subjective: no new c/o Medications: Reviewed: Yes Vitals/I&O/Wt Last Vital Signs Temp 97.6 F 06/26/25 11:46 Pulse 59 L 06/26/25 11:46 Resp 15 06/26/25 11:46 BP 99/57 06/26/25 11:46 Pulse Ox 99 06/26/25 11:46 O2 Del Method Room Air 06/26/25 11:46 O2 Flow Rate 3 06/26/25 07:51 FiO2 36 06/17/25 20:36 06/25/25 06/26/25 06/26/25 22:59 06:59 14:59 Intake Total 120 / 610 320 / 320 Output Total 50 / 50 0 / 50 Balance 70 / 560 0 / 560 320 / 320 Weight last 48 hrs Weight 75.807 kg Weight 76.685 kg Weight 74.9 kg Physical Exam 2 Narrative: Patient is sitting up in bed], vital signs noted. Patient requiring nasal cannula oxygen. HEENT normocephalic atraumatic. Neck is supple. Has a right neck dialysis catheter Lungs still have basal dullness and crackles improved from yesterday Heart has a murmur is regular positive S1-S2. Abdomen is soft, nontender, positive distended with ascites. Extremities -b/l leg 1+ edema Urinary Catheter Management: Ferrari: Cath Placed During This Visit: yes Reason for Continuing Indwelling Catheter: Acute Urinary Retention or Obstruction Urinary Catheter Date of Insertion: 06/22/25 Urinary Catheter Time of Insertion: 11:45 Data 06/26/25 06:20 06/26/25 10:15 Micro: Microbiology 06/21/25 16:15 Urine Culture - Final Urine,Clean Catch Klebsiella pneumoniae Escherichia coli A&P Assessment and plan 1. Acute kidney injury superimposed on chronic kidney disease: 84-year-old lady with baseline creatinine 1.1 mg/dL giving her mild CKD stage IIIa. Patient has heart failure preserved EF, coronary artery disease, intermittent atrial fibrillation, Moderate to severe mitral regurgitation. Patient was admitted with worsening shortness of breath patient was given diuretics. Patient has had hypotension patient has developed acute kidney injury between June 17 and June 18 and it continues with an oliguric renal failure 1. Oliguric acute kidney injury- Patient likely has ATN versus cardiorenal syndrome. -HD started and underwent 2 sessions, no recovery and HD today Follow-up serologies are still pending normal complements. 2 CHF: Diastolic heart function, with severe MR from pulmonary hypertension and tricuspid regurgitation 3.vitamin D deficiency, replete 4. Patient has mild anemia appears stable her thrombocytopenia has improved. Iron saturation 8.4% ferritin 173 will give IV iron. Hemoglobin stable status post dialysis, improved 5. Hyponatremia, improved . Patient was seen and examined using A/V equipment. The case was discussed in detail with the patient, her nurse and her son. The patient and family consented to telehealth and to dialysis. Plan: As above. PDMP PDMP Reviewed: Not Reviewed Attestations 2 Medical Necessity Statement*: per medicne Coding Level of Care Code Acute Code for Chg Fwd Diagnoses Acute kidney injury superimposed on chronic kidney disease N17.9; N18.9
--- NOTE | 2025-06-26 14:56 | P.PN_ITS ---
<Statement entered by Uziel Ramos M.D - 07/04/25 10:49> Patient was cared for in conjunction with an advanced practice practitioner.? I reviewed the chart and all pertinent data including imaging, telemetry, and laboratory results.? I discussed the patient in detail with the advanced practice practitioner.? Please see? their documentation for progress note, testing results and agreed upon plan of care for the patient. Patient may not be a candidate for mitraclip because of mitral stenosis Subjective 2 Subjective: Patient with a lot of nausea today. Creatinine has increased to 5.6. Not feeling well. Vitals/I&O/Wt Last Vital Signs Temp 97.6 F 06/26/25 11:46 Pulse 59 L 06/26/25 11:46 Resp 15 06/26/25 11:46 BP 99/57 06/26/25 11:46 Pulse Ox 99 06/26/25 11:46 O2 Del Method Room Air 06/26/25 11:46 O2 Flow Rate 3 06/26/25 07:51 FiO2 36 06/17/25 20:36 06/25/25 06/26/25 06/26/25 22:59 06:59 14:59 Intake Total 120 / 610 430 / 430 Output Total 50 / 50 0 / 50 Balance 70 / 560 0 / 560 430 / 430 Weight last 48 hrs Weight 167 lb 2 oz Weight 169 lb 1 oz Physical Exam 2 Narrative: General: No apparent distress Muskuloskeletal: Full ROM Respiratory: Normal respiratory effort, right clear, left posterior lower lobes fine crackles Cardio: No JVD, regular rate, regular rhythm, S1 S2 normal, grade II/ murmur mitral space, peripheral pulses 2+ radial palpated bilaterally GI: Normal to inspection, nondistended Extremities: Full ROM, normal, normal capillary refill, no cyanosis, 1+ nonpitting edema bilateral lower extremities Neuro: Alert and oriented x4, no focal motor deficits Psych: Affect normal, denies suicidal ideation, mental status grossly normal Skin: No rashes or lesions noted, no wounds Urinary Catheter Management: Ferrari: Cath Placed During This Visit: yes Reason for Continuing Indwelling Catheter: Acute Urinary Retention or Obstruction Urinary Catheter Date of Insertion: 06/22/25 Urinary Catheter Time of Insertion: 11:45 Data 06/26/25 06:20 06/26/25 10:15 Micro: Microbiology 06/21/25 16:15 Urine Culture - Final Urine,Clean Catch Klebsiella pneumoniae Escherichia coli A&P Assessment and plan 1. Elevated troponin: 2. Intermittent atrial fibrillation: 3. Acute kidney injury superimposed on chronic kidney disease: 4. Hypotension: 5. Presence of permanent cardiac pacemaker: 6. Severe mitral valve regurgitation: 7. Acute on chronic heart failure with preserved ejection fraction: Plan: Continue to hold diuretics at this time. Dialysis per nephrology. Patient may need mitraclip in the future on an outpatient basis. Patient had bright red blood per rectum. Eliquis is on hold for now. Restart as soon as deemed ok by primary. PDMP PDMP Reviewed: Not Reviewed Attestations 2 Medical Necessity Statement*: Deferred to primary Coding Level of Care Code Acute Code for g Fwd Diagnoses Elevated troponin R79.89 Intermittent atrial fibrillation I48.0 Acute kidney injury superimposed on chronic kidney disease N17.9; N18.9 Hypotension I95.9 Presence of permanent cardiac pacemaker Z95.0 Severe mitral valve regurgitation I34.0 Acute on chronic heart failure with preserved ejection fraction I50.33
--- NOTE | 2025-06-26 15:28 | PC.SOCIAL ---
IMM Update pg 2 of IMM updated and reviewed w/ patient. Copy provided and copy dated, initialed and placed in chart.
--- NOTE | 2025-06-26 18:37 | PM.PN ---
Subjective Subjective: She is currently feeling slightly better, but was getting nauseated earlier today. Vitals/I&O/Wt Last Vital Signs Temp 97.3 F L 06/26/25 17:27 Pulse 60 06/26/25 17:27 Resp 18 06/26/25 17:27 BP 142/48 06/26/25 17:27 Pulse Ox 99 06/26/25 16:00 O2 Del Method Nasal Cannula 06/26/25 16:00 O2 Flow Rate 3 06/26/25 07:51 FiO2 36 06/17/25 20:36 06/26/25 06/26/25 06/26/25 06:59 14:59 22:59 Intake Total 430 / 430 520 / 950 Output Total 0 / 50 3000 / 3000 Balance 0 / 560 430 / 430 -2480 / -2050 Weight last 48 hrs Weight 75.4 kg Weight 75.807 kg Weight 76.685 kg Physical Exam Narrative: Accompanied by her grandson. Const: COMMON NORMALS: patient oriented x3 and alert GENERAL APPEARANCE: cooperative ORIENTATION/CONSCIOUSNESS: Yes awake HENMT: COMMON NORMALS: oropharynx normal OTHER: Right IJ HDC Neck/C-Spine: COMMON NORMALS: no JVD Resp: COMMON NORMALS: normal respiratory effort and clear to auscultation bilaterally AUSCULTATION: clear to auscultation bilaterally Cardio: COMMON NORMALS: no JVD, regular rhythm, S1 normal heart sound present, S2 normal heart sound present and No murmurs present (Cardio) RHYTHM: regular rhythm HEART SOUNDS: S1 normal heart sound present and S2 normal heart sound present GI: COMMON NORMALS: Normal to inspection, nondistended, normoactive bowel sounds present, Soft to palpation and non-tender INSPECTION: Yes abdominal distension PALPATION: Yes Soft to palpation Extremity: COMMON NORMALS: no joint enlargement and no pedal edema NARRATIVE EXTREMITY EXAM: L arm PICC GENERAL: Yes edema (Trace) Neuro: COMMON NORMALS: patient oriented x3 and moves all extremities SENSORIUM/ORIENTATION: Yes alert Skin: COMMON NORMALS: no rashes or lesions noted GENERAL SKIN EXAM: no rashes or lesions noted Urinary Catheter Management: Ferrari: Cath Placed During This Visit: yes Reason for Continuing Indwelling Catheter: Acute Urinary Retention or Obstruction Urinary Catheter Date of Insertion: 06/22/25 Urinary Catheter Time of Insertion: 11:45 Data 06/26/25 06:20 06/26/25 10:15 Micro: Microbiology 06/21/25 16:15 Urine Culture - Final Urine,Clean Catch Klebsiella pneumoniae Escherichia coli A&P Assessment and plan 1. Acute kidney injury superimposed on chronic kidney disease: Additional dialysis today. Hold off metoprolol after dialysis to avoid hypotension. Reassess blood pressure. Reviewed chemistry. Reviewed nephrology note. Discussed with Difficulties with blood draw this morning, PICC line placed due to difficult access, however, sample from PICC line hemolyzed. Still had to be drawn peripherally. Recent. Discussed with mine production engineer, further assessment today to determine whether proceed with additional dialysis versus reassess kidney function for any improvement. Pending nephrology reassessment. Discussed with nursing, case manager specialist. Reviewed intake and output, chemistry. Continue to monitor urine output. Further discussed with cardiology, however, dopamine or dobutamine currently would be risky to start with concern for worsening of her severe MR, risk of pulm edema. Increased midodrine dose, so far with good response and tolerating medication. In case hemodynamic support was needed, [place]-Synephrine could be considered. With worsened condition not a candidate for MitraClip. 2. Acute on chronic diastolic heart failure: Still minimal urine output. Continue hemodialysis as per renal reassessmentsDiuretics on hold with worsening renal function. Overall likely without further hypervolemia. She is on baseline oxygen, normally on 3 L. Suspect mitral regurgitation contributing to similar dyspnea. Dialysis as per renal response. 3. Bright red blood per rectum: Possibly secondary to constipation. So far without recurrence. Did have a very hard stool. Discussed with family continue stool softeners. Held off blood thinners for now as per discussion. 4. Hyperkalemia: So far resolved with treatment. But with worsening renal function. Repeat chemistry. Min elev CK. 5. Iron deficiency anemia, unspecified iron deficiency anemia type: Reviewed hemoglobin. Has been staying steady. Appears to be chronic and her hemoglobin is at her baseline. Will continue to monitor. 6. Presence of permanent cardiac pacemaker: Keep on telemetry 7. Benign essential hypertension with target blood pressure below 140/90: Restart home medication once medication conciliation completed 8. Diabetes: FSBS, sign scale insulin Reduce Lantus dose, monitor for risk of hypoglycemia. 9. Hypothyroidism: TSH noted with worsened elevation. Possibly absorbing levothyroxine well. Switched to IV levothyroxine. Continue IV for now. Continue volume optimization, dialysis. Plan: Thrush, vulvovaginal candidiasis: Discussed with pharmacy, add Diflucan. Discussed with pharmacist. Ordered with renal dosing. UTI: Reviewed repeat culture, noted pansensitive Klebsiella and E. coli. Continue ceftriaxone. Reviewed urine culture. Noted growing gram-negative rods x 2. More than 100,000. Pansensitive E. coli in initial urine culture. Reviewed CBC, with leukocytosis of 13. Possible liver cirrhosis: With nodular contour of the liver suggestive of cirrhosis on review of prior CT. Not aware of past history of cirrhosis appears may be new diagnosis. Prior serology with negative hepatitis panel. Does not drink alcohol. I suspect nonalcoholic fatty liver disease basis. Poor appetite: Oral intake is tolerating. Nutritional shakes as tolerated. A-fib: Eliquis on hold. Resume metoprolol. Monitor for risk of hypotension PDMP PDMP Reviewed: Not Reviewed Attestations Medical Necessity Statement*: Continue admission for reassessment of renal failure, volume overload in a lady with additional comorbidities as above. and High MDM includes amount and/or complexity of data reviewed/ordered [ resulted lab(s)/test(s), ordered lab(s)/test(s) and other healthcare professional discussion] and described risk of complication, morbidity or mortality of management as documented Diagnoses Acute kidney injury superimposed on chronic kidney disease N17.9; N18.9 Acute on chronic diastolic heart failure I50.33 Heart failure chronicity: acute on chronic Bright red blood per rectum K62.5 Hyperkalemia E87.5 Iron deficiency anemia, unspecified iron deficiency anemia type D50.9 Anemia type: iron deficiency Iron deficiency anemia type: unspecified iron deficiency Presence of permanent cardiac pacemaker Z95.0 Benign essential hypertension with target blood pressure below 140/90 I10 Diabetes E11.9 Hypothyroidism E03.9
[2025-06-26] MEDS: fluconazole premix 200 MG/100 ML PREMIX 100 MG IV (20:34)
[2025-06-26] MEDS: PRAMIPEXOLE 0.5 MG TABLET 1 MG PO (20:34)
[2025-06-26] MEDS: insulin glargine 100 units/1 mL 10 UNIT SUBCUT (20:41)
[2025-06-27] VITALS (7 sets, daily range): BP systolic 100–124; BP diastolic 52–72; PULSE 60–61; RESP 16–18; TEMP 36.2–36.7; O2SAT 96–99
[2025-06-27] MEDS: ondansetron 2 mg/ML SDV 2 mL 4 MG IVP ×2 (01:05→23:48)
[2025-06-27] MEDS: lactulose oral liq 20 gm/30 mL UDC 10 GM PO ×2 (01:05→04:52)
[2025-06-27] MEDS: carbidopa-levodopa 25-100mg Tablet 1 EACH PO ×2 (04:53→18:01)
[2025-06-27] MEDS: MIDODRINE HCL 10 MG TABLET PO ×3 (04:53→21:34)
[2025-06-27 06:35] LABS: Hematocrit 38.7 % (36-47); Hemoglobin 11.80 g/dL (11.27-16.99); Mean Corpuscular HGB Conc 30.5 g/dL (30-55); Mean Corpuscular Hemoglobin 29.5 pg (27-33); Mean Corpuscular Volume 96.8 fl (85-98); Nucleated Red Blood Cells % 0.5 %; Platelet Count 135 10^3/cmm (157-399); Red Blood Count 4.00 10^6/uL (3.85-5.65); White Blood Count 12.95 10^3/uL (3.29-11.43)
[2025-06-27 07:01] LABS: Magnesium 2.5 mg/dL (1.7-2.3)
[2025-06-27 07:03] LABS: Alanine Aminotransferase 25 U/L (0-33); Albumin Level 3.3 g/dL (3.5-5.2); Alkaline Phosphatase 259 U/L (35-105); Blood Urea Nitrogen 50 mg/dL (8-23); Calcium 8.5 mg/dL (8.5-10.5); Carbon Dioxide 24 mmol/L (22-29); Chloride 98 mmol/L (98-107); Globulin 2.2 g/dL (1.3-4.6); Glucose 91 mg/dL (65-115); Osmolality Calculated 297 mOsm/kg (285-295); Sodium 137 mmol/L (136-145); Total Protein 5.5 g/dL (6.6-8.7)
[2025-06-27 07:08] LABS: Anion Gap 20.4 (5-19); Aspartate Amino Transferase 68 U/L (0-32); Potassium 5.4 mmol/L (3.5-5.1)
--- NOTE | 2025-06-27 09:05 | P.PN_ITS ---
Subjective 2 Subjective: no new c/o Medications: Reviewed: Yes Vitals/I&O/Wt Last Vital Signs Temp 97.8 F 06/27/25 07:34 Pulse 60 06/27/25 07:34 Resp 18 06/27/25 07:34 BP 111/62 06/27/25 07:34 Pulse Ox 98 06/27/25 07:34 O2 Del Method Nasal Cannula 06/27/25 07:34 O2 Flow Rate 2.5 06/27/25 07:34 FiO2 21 06/26/25 23:23 06/26/25 06/27/25 06/27/25 22:59 06:59 14:59 Intake Total 620 / 1050 100 / 1150 Output Total 3100 / 3100 Balance -2480 / -2050 100 / -1950 Weight last 48 hrs Weight 75.41 kg Weight 75.4 kg Weight 75.807 kg Physical Exam 2 Narrative: Patient is sitting up in bed], vital signs noted. Patient requiring nasal cannula oxygen. HEENT normocephalic atraumatic. Neck is supple. Has a right neck dialysis catheter Lungs still have basal dullness and crackles improved from yesterday Heart has a murmur is regular positive S1-S2. Abdomen is soft, nontender, positive distended with ascites. Extremities -b/l leg 1+ edema Urinary Catheter Management: Ferrari: Cath Placed During This Visit: yes Reason for Continuing Indwelling Catheter: Acute Urinary Retention or Obstruction Urinary Catheter Date of Insertion: 06/22/25 Urinary Catheter Time of Insertion: 11:45 Data 06/28/25 08:47 06/28/25 08:47 A&P Assessment and plan 1. Acute kidney injury superimposed on chronic kidney disease: 84-year-old lady with baseline creatinine 1.1 mg/dL giving her mild CKD stage IIIa. Patient has heart failure preserved EF, coronary artery disease, intermittent atrial fibrillation, Moderate to severe mitral regurgitation. Patient was admitted with worsening shortness of breath patient was given diuretics. Patient has had hypotension patient has developed acute kidney injury between June 17 and June 18 and it continues with an oliguric renal failure 1. Oliguric acute kidney injury- Patient likely has ATN versus cardiorenal syndrome. -HD started , no recovery so far , arrange tunnelled catheter for intermediate accountant HD Follow-up serologies are still pending normal complements. 2 CHF: Diastolic heart function, with severe MR from pulmonary hypertension and tricuspid regurgitation 3.vitamin D deficiency, replete 4. Patient has mild anemia appears stable her thrombocytopenia has improved. Iron saturation 8.4% ferritin 173 will give IV iron. Hemoglobin stable status post dialysis, improved 5. Hyponatremia, improved . Patient was seen and examined using A/V equipment. The case was discussed in detail with the patient, her nurse and her son. The patient and family consented to telehealth and to dialysis. Plan: As above. PDMP PDMP Reviewed: Not Reviewed Attestations 2 Medical Necessity Statement*: PER [facility] Coding Level of Care Code Acute Code for Chg Fwd Diagnoses Acute kidney injury superimposed on chronic kidney disease N17.9; N18.9
[2025-06-27] MEDS: ferric gluconate 125 MG in sodium chloride 0.9% (100 ml) 100 ML 110 MG IV (12:18)
--- NOTE | 2025-06-27 12:38 | P.PN_ITS ---
<Statement entered by Uziel Ramos M.D - 07/04/25 10:52> Patient was cared for in conjunction with an advanced practice practitioner.? I reviewed the chart and all pertinent data including imaging, telemetry, and laboratory results.? I discussed the patient in detail with the advanced practice practitioner.? Please see? their documentation for progress note, testing results and agreed upon plan of care for the patient. Subjective 2 Subjective: Patient got dialysis yesterday. Creatinine improved 4.6. -2 L fluid balance. Vitals/I&O/Wt Last Vital Signs Temp 97.3 F L 06/27/25 11:20 Pulse 60 06/27/25 11:20 Resp 16 06/27/25 11:20 BP 108/58 06/27/25 11:20 Pulse Ox 98 06/27/25 11:20 O2 Del Method Nasal Cannula 06/27/25 11:20 O2 Flow Rate 2.5 06/27/25 11:20 FiO2 21 06/26/25 23:23 06/26/25 06/27/25 06/27/25 22:59 06:59 14:59 Intake Total 620 / 1050 100 / 1150 100 / 100 Output Total 3100 / 3100 Balance -2480 / -2050 100 / -1950 100 / 100 Weight last 48 hrs Weight 166 lb 4 oz Weight 166 lb 3.657 oz Weight 167 lb 2 oz Physical Exam 2 Narrative: General: No apparent distress Muskuloskeletal: Full ROM Respiratory: Normal respiratory effort, right clear, bilateral posterior lobes clear Cardio: No JVD, regular rate, regular rhythm, S1 S2 normal, grade II/ murmur mitral space, peripheral pulses 2+ radial palpated bilaterally GI: Normal to inspection, nondistended Extremities: Full ROM, normal, normal capillary refill, no cyanosis, 1+ nonpitting edema bilateral lower extremities Neuro: Alert and oriented x4, no focal motor deficits Psych: Affect normal, denies suicidal ideation, mental status grossly normal Skin: No rashes or lesions noted, no wounds Urinary Catheter Management: Ferrari: Cath Placed During This Visit: yes Reason for Continuing Indwelling Catheter: Acute Urinary Retention or Obstruction Urinary Catheter Date of Insertion: 06/22/25 Urinary Catheter Time of Insertion: 11:45 Data 06/27/25 06:23 06/27/25 06:23 A&P Assessment and plan 1. Elevated troponin: 2. Intermittent atrial fibrillation: 3. Acute kidney injury superimposed on chronic kidney disease: 4. Hypotension: 5. Presence of permanent cardiac pacemaker: 6. Severe mitral valve regurgitation: 7. Acute on chronic heart failure with preserved ejection fraction: Plan: Patient on Dialysis per nephrology. Echo was reviewed by Dr. Ramos. Reported patient would not be a candidate for mitraclip due to presence of heavy calcification on the valve as well as stenosis to the area. Continue medical management for now. Discussed this with patient's grandson. Patient had bright red blood per rectum. Eliquis is on hold for now. Restart as soon as deemed ok by primary. PDMP PDMP Reviewed: Not Reviewed Attestations 2 Medical Necessity Statement*: Deferred to primary Coding Level of Care Code Acute Code for Chg Fwd Diagnoses Elevated troponin R79.89 Intermittent atrial fibrillation I48.0 Acute kidney injury superimposed on chronic kidney disease N17.9; N18.9 Hypotension I95.9 Presence of permanent cardiac pacemaker Z95.0 Severe mitral valve regurgitation I34.0 Acute on chronic heart failure with preserved ejection fraction I50.33
--- NOTE | 2025-06-27 15:27 | PM.CONSULT ---
Providers/Reason For Consult Consulting Physician/Specialty*: Dr. Hernandez general surgery Reason for Consult*: Dialysis catheter insertion Attending Physician: Silverio Dominguez Primary Care Provider: Terence Rogers History of Present Illness History of Present Illness Vaibhav Ramsey is a 84 year old female with multiple comorbidities including MATILDA on CKD. Hospitalist consulted for tunneled dialysis catheter insertion. Nephrology has been following patient and is also recommending a tunneled dialysis catheter. Patient has a right IJ temporary dialysis catheter. History of heart disease. Medications/Allergies Home Medications ?Medication ?Instructions ?Recorded ?Confirmed ?Last Taken ?Type allopurinol 300 mg tablet 300 mg PO BID 07/31/19 06/17/25 10/29/23 History carbidopa 25 mg-levodopa 100 mg 1 tab PO BID 07/31/19 06/17/25 10/29/23 History tablet cyanocobalamin (vitamin B-12) 1,000 mcg IM Q30D 07/31/19 06/17/25 10/24/23 History 1,000 mcg/mL injection solution oxycodone-acetaminophen 10 mg-325 1 tab PO Q6H PRN Pain, Mild 07/31/19 06/17/25 11/09/22 History mg tablet pramipexole 0.5 mg tablet 2 mg PO BEDTIME 07/31/19 06/17/25 10/28/23 History nitroglycerin 0.4 mg sublingual 0.4 mg sublingual Q5M PRN chest 12/10/19 06/17/25 07/06/20 20:00 Rx tablet pain 30 days #30 tabs post mastectomy Bras #4 ea 01/14/22 06/17/25 Unknown Rx apixaban 2.5 mg tablet 2.5 mg PO BID #90 tabs 03/16/22 06/17/25 10/29/23 Rx levothyroxine 100 mcg tablet 100 mcg PO DAILY 08/30/22 06/17/25 10/29/23 History insulin glargine 100 unit/mL 20 unit SUBCUT BEDTIME 11/09/22 06/17/25 10/28/23 History subcutaneous solution (Lantus U-100 Insulin) zinc acetate 25 mg (zinc) capsule 50 mg PO DAILY 09/26/23 06/17/25 10/29/23 History baclofen 5 mg tablet 5 mg PO BID PRN Spasms 10/29/23 06/17/25 10/29/23 History sertraline 100 mg tablet 100 mg PO DAILY 10/29/23 06/17/25 10/29/23 History pantoprazole 40 mg tablet,delayed 40 mg PO DAILY 11/05/23 06/17/25 Unknown History release metoprolol tartrate 25 mg tablet 25 mg PO BID 08/15/24 06/17/25 Unknown History ascorbic acid (vitamin C) 500 mg 500 mg PO DAILY 06/17/25 06/17/25 Unknown History tablet (Vitamin C) docusate sodium 100 mg capsule 100 mg PO BID 06/17/25 06/17/25 Unknown History (Colace) fluticasone propionate 50 2 spray intranasal BEDTIME 06/17/25 06/17/25 Unknown History mcg/actuation nasal spray,suspension furosemide 40 mg tablet (Lasix) 40 mg PO BID 06/17/25 06/17/25 Unknown History isosorbide mononitrate 120 mg 120 mg PO DAILY 06/17/25 06/17/25 Unknown History tablet,extended release 24 hr meclizine 25 mg tablet 25 mg PO TID PRN Dizziness 06/17/25 06/17/25 Unknown History ondansetron HCl 4 mg tablet 4 mg PO Q6H PRN Nausea 06/17/25 06/17/25 Unknown History pravastatin 40 mg tablet 40 mg PO BEDTIME 06/17/25 06/17/25 Unknown History spironolactone 25 mg tablet 25 mg PO DAILY 06/17/25 06/17/25 Unknown History Allergies Allergy/AdvReac Type Severity Reaction Status Date / Time codeine Allergy patient Verified 02/06/25 08:09 doesn't recall flecainide Allergy severe Verified 02/06/25 08:09 vomiting garlic Allergy Unknown Verified 02/06/25 08:09 Iodinated Contrast Media Allergy renal Verified 02/06/25 08:09 disease naproxen Allergy renal Verified 02/06/25 08:09 disease Penicillins Allergy hives Verified 02/06/25 08:09 shellfish derived Allergy unknown Verified 02/06/25 08:09 Sulfa (Sulfonamide Allergy itching Verified 02/06/25 08:09 Antibiotics) tramadol AdvReac makes me Verified 02/06/25 08:09 crazy Current Medications Generic Name Dose Route Start Last Admin Trade Name Freq PRN Reason Stop Dose Admin Acetaminophen 650 mg 06/16/25 18:35 06/21/25 20:24 Acetaminophen 325 Mg Tablet PO 650 mg Q6H PRN Administration Mild/Mod Pain Or Temp >/= 101 Apixaban 2.5 mg 06/17/25 17:00 06/22/25 05:59 Apixaban 2.5 Mg Tablet PO 2.5 mg On Hold: 06/22/25 12:54 BID GONZALO Administration Atorvastatin Calcium 20 mg 06/17/25 21:00 06/19/25 21:11 Atorvastatin 20 Mg Tablet PO 20 mg On Hold: 06/20/25 17:28 BEDTIME GONZALO Administration Bisacodyl 10 mg 06/27/25 05:00 06/27/25 04:22 Bisacodyl 10 Mg Supp RI 10 mg DAILY GONZALO Administration Camphor/Menthol/Phenol 1 applic 06/21/25 05:02 06/21/25 05:19 Blistex Lip Oint 7 Gm Tube TOPICAL 1 applic PRN PRN Administration DRYNESS Carbidopa/Levodopa 1 each 06/17/25 17:00 06/27/25 04:53 Carbidopa-Levodopa 25-100mg Tablet PO 1 each BID GONZALO Administration Docusate Sodium 100 mg 06/24/25 17:00 06/27/25 04:53 Docusate Sodium 100 Mg Capsule PO 100 mg BID GONZALO Administration Ergocalciferol 50,000 unit 06/22/25 11:00 06/22/25 10:55 Ergocalciferol (Vitamin D2) 50,000 Unit Capsule PO 50,000 unit Q7D GONZALO Administration Ciprofloxacin/Dextrose 400 mg in 200 mls @ 200 mls/hr 06/22/25 08:15 06/27/25 08:17 Cipro IV 200 mls/hr Q24H GONZALO Administration Protocol Fluconazole 200 mg in 100 mls @ 100 mls/hr 06/26/25 18:45 06/26/25 21:49 Diflucan Premix IV Infused Q48H GONZALO Infusion Ferric Sodium Gluconate 125 mg 110 mls @ 110 mls/hr 06/27/25 12:15 06/27/25 12:18 / Sodium Chloride IV 06/29/25 13:14 110 mls/hr Q24H GONZALO Administration Insulin Glargine 10 unit 06/21/25 21:00 06/26/25 20:41 Insulin Glargine 100 Units/1 Ml SUBCUT 10 unit BEDTIME GONZALO Administration Insulin Human Lispro 0 unit 06/22/25 21:48 06/27/25 12:05 Insulin Lispro 100 Unit/1 Ml SUBCUT Not Given WM&BEDTIME GONZALO Protocol Isosorbide Mononitrate 120 mg 06/18/25 05:00 06/20/25 04:58 Isosorbide Mononitrate Er 60 Mg Tablet PO 120 mg On Hold: 06/20/25 17:00 DAILY GONZALO Administration Lactulose 10 gm 06/27/25 00:40 06/27/25 04:52 Lactulose Oral Liq 20 Gm/30 Ml Udc PO 10 gm DAILY GONZALO Administration Levothyroxine Sodium 80 mcg 06/23/25 05:00 06/27/25 04:53 Levothyroxine 100 Mcg Sdv IVP 80 mcg DAILY GONZALO Administration Lorazepam 0.5 mg 06/23/25 20:23 06/23/25 20:42 Lorazepam 2 Mg/Ml Inj 1 Ml IVP 0.5 mg Q4H PRN Administration NAUSEA Metoprolol Tartrate 12.5 mg 06/21/25 17:00 06/27/25 06:36 Metoprolol Tartrate 25 Mg Tablet PO 12.5 mg BID GONZALO Administration Midodrine 10 mg 06/22/25 21:00 06/27/25 12:18 Midodrine Hcl 10 Mg Tablet PO 10 mg TID GONZALO Administration Ondansetron HCl 4 mg 06/23/25 08:35 06/27/25 01:05 Ondansetron 2 Mg/Ml Sdv 2 Ml IVP 4 mg Q4H PRN Administration NAUSEA AND VOMITING Pantoprazole Sodium 40 mg 06/18/25 05:00 06/27/25 04:[address] 40 Mg Tablet PO 40 mg DAILY GONZALO Administration Pramipexole Dihydrochloride 1 mg 06/21/25 21:00 06/26/25 20:34 Pramipexole 0.5 Mg Tablet PO 1 mg BEDTIME GONZALO Administration Senna 8.6 mg 06/25/25 10:40 06/26/25 21:47 Sennosides 8.6 Mg Tablet PO 8.6 mg BEDTIME GONZALO Administration Sertraline HCl 100 mg 06/18/25 05:00 06/27/25 04:53 Sertraline 100 Mg Tablet PO 100 mg DAILY GONZALO Administration Sevelamer Carbonate 1,600 mg 06/23/25 12:00 06/27/25 12:18 Sevelamer 800 Mg Tablet PO 1,600 mg TIDWM GONZALO Administration PFSH Acute PFSH: Medical History (Updated 06/25/25 @ 19:38 by Silverio Dominguez MD) Diastolic heart failure Intermittent atrial fibrillation Ascitic fluid Abdominal distention Clear vaginal discharge DNR (do not resuscitate) MATILDA (acute kidney injury) MATILDA (acute kidney injury) Acute UTI Atrial fibrillation Sinus node dysfunction Obstructive sleep apnea Gastritis and duodenitis Enterovirus infection, unspecified CHF exacerbation Community acquired pneumonia Fracture of distal end of right fibula Lung nodule, solitary Restrictive lung disease Restrictive lung disease Transaminitis Mild. Most likely due to passive congestion due her CHF. Lumbar stenosis with neurogenic claudication Difficulty in swallowing High anion gap metabolic acidosis Bilateral renal cysts On multiple imaging modalities all appear simple. No further work-up recommended December 2020 Pacemaker Right bundle branch block Supraventricular tachycardia COVID-19 Elevated troponin Chest pain Chronic respiratory failure with hypoxia and hypercapnia GERD (gastroesophageal reflux disease) Atypical chest pain Cardiac [place] [address] [place]. She had no significant coronary artery disease at that time. Chronic kidney disease Osteoarthritis Syncope Chronic kidney disease -baseline Cr appears to be around 2-2.3 - Symptomatic bradycardia UTI (urinary tract infection) - Bradycardia Anemia -on iron supplementation COPD (chronic obstructive pulmonary disease) Uses 3 L [id number] and BiPAP at night Gout Former smoker Normal coronary angiogram Cardiac angiogram done in September 2015 Chronic back pain History of pulmonary embolism -is on AC with Eliquis Hypothyroidism Type 2 diabetes mellitus Hypertension Diastolic heart failure Chronic anticoagulation Paroxysmal A-fib Surgical History Postoperative state Status post lumbar laminectomy H/O right mastectomy History of tonsillectomy H/O hernia repair H/O colonoscopy 2019 H/O esophagogastroduodenoscopy (~04/2020) 2020 H/O left knee surgery Tubal ligation status History of cholecystectomy Family History Father CAD (coronary artery disease) Family history of premature coronary artery disease Hypertension Mother Cancer Chronic kidney disease (CKD) Hypertension Sister Hyperlipidemia Hypertension Daughter No problems noted. Other Diabetes Social History Smoking and tobacco/nicotine status: former use of tobacco/nicotine Quit status (tobacco/nicotine): has quit using Year quit tobacco: 1970 - 1PPD x 25 Years Alcohol intake: never Substance/Drug Use: never Caregiver/support person: Yes Lives independently: Yes Household members: family Housing: House Marital status: / Current occupational status: retired Do you think of yourself as: Straight/Heterosexual Vitals/I&O/Wt Last Vital Signs Temp 97.3 F L 06/27/25 11:20 Pulse 60 06/27/25 11:20 Resp 16 06/27/25 11:20 BP 108/58 06/27/25 11:20 Pulse Ox 98 06/27/25 11:20 O2 Del Method Nasal Cannula 06/27/25 11:20 O2 Flow Rate 2.5 06/27/25 11:20 FiO2 21 06/26/25 23:23 06/27/25 06/27/25 06/27/25 06:59 14:59 22:59 Intake Total 100 / 1150 100 / 100 Balance 100 / -1950 100 / 100 Weight last 48 hrs Weight 166 lb 4 oz Weight 166 lb 3.657 oz Weight 167 lb 2 oz Physical Exam Narrative: Alert oriented x 3 Chest: Unlabored breathing room air. No lymphadenopathy. Right IJ temporary dialysis catheter in place Heart: Regular rate and rhythm. Abdomen: Soft, nontender, nondistended. No masses or lymphadenopathy. Urinary Catheter Management: Efrrari: Cath Placed During This Visit: yes Reason for Continuing Indwelling Catheter: Acute Urinary Retention or Obstruction Urinary Catheter Date of Insertion: 06/22/25 Urinary Catheter Time of Insertion: 11:45 Data 06/28/25 08:47 06/28/25 08:47 A&P Assessment and plan 1. Acute kidney injury superimposed on chronic kidney disease: Plan: 84-year-old female multiple comorbidities including MATILDA on CKD whom surgery was consulted for tunneled dialysis catheter insertion. Patient is agreeable to proceed with tunneled dialysis catheter. She has discussed with family. Hospitalist and nephrology are also agreement with this plan. Will plan for tunneled dialysis catheter on 06/28/2025. PDMP PDMP Reviewed: Not Reviewed Coding Level of Care Code 19134 Diagnoses Acute kidney injury superimposed on chronic kidney disease N17.9; N18.9
--- NOTE | 2025-06-27 19:23 | PC.NURSE ---
Patient refused insulin. Patient didn't eat dinner. took ensure with medication. Will reassess blood sugar at bedtime. Notified Dr. Dominguez
--- NOTE | 2025-06-27 21:24 | P.PN_ITS ---
Subjective 2 Subjective: Reports feeling somewhat better. No further bright red blood per rectum. Had additional dialysis yesterday. Blood pressure is doing better today. She and her grandson are agreeable to proceed with tunneled dialysis catheter as per discussion with nephrology. Vitals/I&O/Wt Last Vital Signs Temp 98.1 F 06/27/25 19:44 Pulse 61 06/27/25 19:44 Resp 17 06/27/25 19:44 BP 124/72 06/27/25 19:44 Pulse Ox 99 06/27/25 19:44 O2 Del Method Nasal Cannula 06/27/25 19:44 O2 Flow Rate 3 06/27/25 19:44 FiO2 21 06/26/25 23:23 06/27/25 06/27/25 06/27/25 06:59 14:59 22:59 Intake Total 100 / 1150 100 / 100 310 / 410 Balance 100 / -1950 100 / 100 310 / 410 Weight last 48 hrs Weight 75.41 kg Weight 75.4 kg Weight 75.807 kg Physical Exam 2 Narrative: Accompanied by her grandson. Const: COMMON NORMALS: patient oriented x3 and alert GENERAL APPEARANCE: c ooperative ORIENTATION/CONSCIOUSNESS: Yes awake HENMT: COMMON NORMALS: oropharynx normal OTHER: Right IJ HDC Neck/C-Spine: COMMON NORMALS: no JVD Resp: COMMON NORMALS: normal respiratory effort and clear to auscultation bilaterally AUSCULTATION: clear to auscultation bilaterally Cardio: COMMON NORMALS: no JVD, regular rhythm, S1 normal heart sound present, S2 normal heart sound present and No murmurs present (Cardio) RHYTHM: regular rhythm HEART SOUNDS: S1 normal heart sound present and S2 normal heart sound present GI: COMMON NORMALS: Normal to inspection, nondistended, normoactive bowel sounds present, Soft to palpation and non-tender INSPECTION: Yes abdominal distension PALPATION: Yes Soft to palpation Extremity: COMMON NORMALS: no joint enlargement and no pedal edema N ARRATIVE EXTREMITY EXAM: L arm PICC GENERAL: Yes edema (Trace) Neuro: COMMON NORMALS: patient oriented x3 and moves all extremities S ENSORIUM/ORIENTATION: Yes alert Skin: COMMON NORMALS: no rashes or lesions noted GENERAL SKIN EXAM: no rashes or lesions noted Urinary Catheter Management: Ferrari: Cath Placed During This Visit: yes Reason for Continuing Indwelling Catheter: Acute Urinary Retention or Obstruction Urinary Catheter Date of Insertion: 06/22/25 Urinary Catheter Time of Insertion: 11:45 Data 06/27/25 06:23 06/27/25 06:23 A&P Assessment and plan 1. Acute kidney injury superimposed on chronic kidney disease: Reviewed vitals, intake output, minimal urine output. Reviewed chemistry. Mild hyperkalemia. Creatinine 4.6, BUN 50. Without significant improvement in renal function to be able to come off dialysis. Discussed with nephrology. Recommendation to proceed with tunneled dialysis catheter. Discussed with patient and her grandson. Discussed with surgery. N.p.o. after midnight. Plans for tomorrow. Still had to be drawn peripherally. Recent. Discussed with grain loader, further assessment today to determine whether proceed with additional dialysis versus reassess kidney function for any improvement. Pending nephrology reassessment. Discussed with nursing, case management director. Reviewed intake and output, chemistry. Continue to monitor urine output. Further discussed with cardiology, however, dopamine or dobutamine currently would be risky to start with concern for worsening of her severe MR, risk of pulm edema. Increased midodrine dose, so far with good response and tolerating medication. In case hemodynamic support was needed, Shaquille-Synephrine could be considered. With worsened condition not a candidate for MitraClip. 2. Acute on chronic diastolic heart failure: Still minimal urine output. Continue hemodialysis as per renal reassessmentsDiuretics on hold with worsening renal function. Overall likely without further hypervolemia. She is on baseline oxygen, normally on 3 L. Suspect mitral regurgitation contributing to similar dyspnea. Dialysis as per renal response. Discussed with case management director, arrangements are being made for post discharge dialysis. 3. Bright red blood per rectum: Holding off blood thinner in anticipation of dialysis catheter placement. So far without additional blood in the stools, suspect related to constipation. Possibly secondary to constipation. So far without recurrence. Did have a very hard stool. Discussed with family continue stool softeners. Held off blood thinners for now as per discussion. 4. Hyperkalemia: Will need to continue dialysis. So far resolved with treatment. But with worsening renal function. Repeat chemistry. Min elev CK. 5. Iron deficiency anemia, unspecified iron deficiency anemia type: Reviewed hemoglobin. Has been staying steady. Appears to be chronic and her hemoglobin is at her baseline. Will continue to monitor. 6. Presence of permanent cardiac pacemaker: Keep on telemetry 7. Benign essential hypertension with target blood pressure below 140/90: Restart home medication once medication conciliation completed 8. Diabetes: FSBS, sign scale insulin Reduce Lantus dose, monitor for risk of hypoglycemia. 9. Hypothyroidism: TSH noted with worsened elevation. Possibly absorbing levothyroxine well. Switched to IV levothyroxine. Continue IV for now. Continue volume optimization, dialysis. Plan: Thrush, vulvovaginal candidiasis: Discussed with pharmacy, add Diflucan. Discussed with pharmacist. Ordered with renal dosing. UTI: Reviewed repeat culture, noted pansensitive Klebsiella and E. coli. Continue ceftriaxone. Reviewed urine culture. Noted growing pansensitive E. coli and Klebsiella. More than 100,000. Pansensitive E. coli in initial urine culture. Reviewed CBC, with leukocytosis of 13. Possible liver cirrhosis: With nodular contour of the liver suggestive of cirrhosis on review of prior CT. Not aware of past history of cirrhosis appears may be new diagnosis. Prior serology with negative hepatitis panel. Does not drink alcohol. I suspect nonalcoholic fatty liver disease basis. Physical deconditioning: Discussed with PT, will be reevaluated. Per discussion of disposition plans, plans to return home. Poor appetite: Oral intake is tolerating. Nutritional shakes as tolerated. A-fib: Eliquis on hold. Resume metoprolol. Monitor for risk of hypotension PDMP PDMP Reviewed: Not Reviewed Attestations 2 Medical Necessity Statement*: Continue admission for reassessment of renal failure, volume overload in a lady with additional comorbidities as above. and High MDM includes amount and/or complexity of data reviewed/ordered [ resulted lab(s)/test(s), ordered lab(s)/test(s), independent historian and other healthcare professional discussion] as documented Diagnoses Acute kidney injury superimposed on chronic kidney disease N17.9; N18.9 Acute on chronic diastolic heart failure I50.33 Heart failure chronicity: acute on chronic Bright red blood per rectum K62.5 Hyperkalemia E87.5 Iron deficiency anemia, unspecified iron deficiency anemia type D50.9 Anemia type: iron deficiency Iron deficiency anemia type: unspecified iron deficiency Presence of permanent cardiac pacemaker Z95.0 Benign essential hypertension with target blood pressure below 140/90 I10 Diabetes E11.9 Hypothyroidism E03.9
[2025-06-27] MEDS: PRAMIPEXOLE 0.5 MG TABLET 1 MG PO (21:33)
[2025-06-27] MEDS: insulin glargine 100 units/1 mL 10 UNIT SUBCUT (21:34)
[2025-06-28] VITALS (20 sets, daily range): BP systolic 104–136; BP diastolic 39–81; PULSE 60–90; RESP 14–21; TEMP 35.6–37; O2SAT 81–100
[2025-06-28] MEDS: carbidopa-levodopa 25-100mg Tablet 1 EACH PO ×2 (06:16→18:37)
[2025-06-28] MEDS: MIDODRINE HCL 10 MG TABLET PO ×2 (06:16→20:52)
[2025-06-28 09:00] LABS: Hematocrit 39.2 % (36-47); Hemoglobin 12.20 g/dL (11.27-16.99); Mean Corpuscular HGB Conc 31.1 g/dL (30-55); Mean Corpuscular Hemoglobin 29.7 pg (27-33); Mean Corpuscular Volume 95.4 fl (85-98); Nucleated Red Blood Cells % 0.4 %; Platelet Count 99 10^3/cmm (157-399); Red Blood Count 4.11 10^6/uL (3.85-5.65); White Blood Count 12.39 10^3/uL (3.29-11.43)
[2025-06-28 09:14] LABS: Alanine Aminotransferase 26 U/L (0-33); Albumin Level 3.2 g/dL (3.5-5.2); Alkaline Phosphatase 246 U/L (35-105); Blood Urea Nitrogen 73 mg/dL (8-23); Calcium 8.3 mg/dL (8.5-10.5); Carbon Dioxide 22 mmol/L (22-29); Chloride 96 mmol/L (98-107); Globulin 2.1 g/dL (1.3-4.6); Glucose 133 mg/dL (65-115); Osmolality Calculated 305 mOsm/kg (285-295); Sodium 136 mmol/L (136-145); Total Protein 5.3 g/dL (6.6-8.7)
[2025-06-28 09:22] LABS: Anion Gap 24.0 (5-19); Aspartate Amino Transferase 67 U/L (0-32); Potassium 6.0 mmol/L (3.5-5.1)
--- NOTE | 2025-06-28 10:18 | P.PN_ITS ---
Subjective 2 Subjective: no new c/o Medications: Reviewed: Yes Vitals/I&O/Wt Last Vital Signs Temp 97.6 F 06/28/25 07:29 Pulse 60 06/28/25 07:29 Resp 19 H 06/28/25 07:29 BP 125/63 06/28/25 07:29 Pulse Ox 97 06/28/25 07:29 O2 Del Method Nasal Cannula 06/28/25 07:29 O2 Flow Rate 2.5 06/28/25 07:29 FiO2 21 06/26/25 23:23 06/27/25 06/28/25 06/28/25 22:59 06:59 14:59 Intake Total 310 / 410 Output Total 50 / 50 0 / 50 Balance 260 / 360 0 / 360 Weight last 48 hrs Weight 85.275 kg Weight 75.41 kg Weight 75.4 kg Physical Exam 2 Narrative: Patient is sitting up in bed], vital signs noted. Patient requiring nasal cannula oxygen. HEENT normocephalic atraumatic. Neck is supple. Has a right neck dialysis catheter Lungs still have basal dullness and crackles improved from yesterday Heart has a murmur is regular positive S1-S2. Abdomen is soft, nontender, positive distended with ascites. Extremities -b/l leg 1+ edema Urinary Catheter Management: Ferrari: Cath Placed During This Visit: yes Reason for Continuing Indwelling Catheter: Acute Urinary Retention or Obstruction Urinary Catheter Date of Insertion: 06/22/25 Urinary Catheter Time of Insertion: 11:45 Data 06/28/25 08:47 06/29/25 04:48 A&P Assessment and plan 1. Acute kidney injury superimposed on chronic kidney disease: 84-year-old lady with baseline creatinine 1.1 mg/dL giving her mild CKD stage IIIa. Patient has heart failure preserved EF, coronary artery disease, intermittent atrial fibrillation, Moderate to severe mitral regurgitation. Patient was admitted with worsening shortness of breath patient was given diuretics. Patient has had hypotension patient has developed acute kidney injury between June 17 and June 18 and it continues with an oliguric renal failure 1. Oliguric acute kidney injury- Patient likely has ATN versus cardiorenal syndrome. -HD started , next HD today ,no recovery so far , plan for tunnelled catheter for fpc HD Follow-up serologies are still pending normal complements. 2 CHF: Diastolic heart function, with severe MR from pulmonary hypertension and tricuspid regurgitation 3.vitamin D deficiency, replete 4. Patient has mild anemia appears stable her thrombocytopenia has improved. Iron saturation 8.4% ferritin 173 will give IV iron. Hemoglobin stable status post dialysis, improved 5. Hyponatremia, improved . Patient was seen and examined using A/V equipment. The case was discussed in detail with the patient, her nurse and her son. The patient and family consented to telehealth and to dialysis. Plan: As above. PDMP PDMP Reviewed: Not Reviewed Attestations 2 Medical Necessity Statement*: per anne Coding Level of Care Code Acute Code for Chg Fwd Diagnoses Acute kidney injury superimposed on chronic kidney disease N17.9; N18.9
--- NOTE | 2025-06-28 10:53 | ANES.PREANE2 ---
Pre-Anesthetic Assessment Height/Weight: Height 5 ft 1 in Weight 188 lb Temp Pulse Resp BP Pulse Ox O2 Del Method O2 Flow Rate 97.6 F 60 19 H 125/63 97 Nasal Cannula 2.5 06/28/25 07:29 06/28/25 07:29 06/28/25 07:29 06/28/25 07:29 06/28/25 07:29 06/28/25 07:29 06/28/25 07:29 FiO2 21 06/26/25 23:23 Preop Diagnosis: MATILDA on CKD Operation Date: 06/28/25 13:15 Proposed Procedures p Insertion Central Venous Access Device Dialysis Catheter Insertion(Not Applicable) - Brad Hernandez MD Was Beta Nunu taken within 24 hours: Yes Was Clonidine taken within 24 hours: N/A Social No alcohol and No tobacco Exam alert, oriented x 3 and regular rate & rhythm Airway Submandibular: within normal limits Cervical ROM: within normal limits Mallampati: Class III Comments: Comments: Edentulous Anesthetic Plan ASA status: 4 Anesthesia: MAC Other: Patient initially admitted on 06/16/2025 with acute kidney injury superimposed on CKD. Patient has been receiving dialysis throughout hospitalization and decision has been made to proceed with permanent dialysis catheter No prior issues with anesthesia Patient is currently on 3 L nasal cannula which is her baseline. Patient had bright red blood per rectum after a very hard stool. No current concerns of GI bleed however IDDM, BS 142 Hypothyroidism on Synthroid Labs reviewed from today, hemoglobin 12.2, NA 136, K+ 6.0 today. Last dialysis was 2 days ago Plan for light MAC anesthesia with local via surgeon Medications/Allergies Home Medications ?Medication ?Instructions ?Recorded ?Confirmed ?Last Taken ?Type allopurinol 300 mg tablet 300 mg PO BID 07/31/19 06/17/25 10/29/23 History carbidopa 25 mg-levodopa 100 mg 1 tab PO BID 07/31/19 06/17/25 10/29/23 History tablet cyanocobalamin (vitamin B-12) 1,000 mcg IM Q30D 07/31/19 06/17/25 10/24/23 History 1,000 mcg/mL injection solution oxycodone-acetaminophen 10 mg-325 1 tab PO Q6H PRN Pain, Mild 07/31/19 06/17/25 11/09/22 History mg tablet pramipexole 0.5 mg tablet 2 mg PO BEDTIME 07/31/19 06/17/25 10/28/23 History nitroglycerin 0.4 mg sublingual 0.4 mg sublingual Q5M PRN chest 12/10/19 06/17/25 07/06/20 20:00 Rx tablet pain 30 days #30 tabs post mastectomy Bras #4 ea 01/14/22 06/17/25 Unknown Rx apixaban 2.5 mg tablet 2.5 mg PO BID #90 tabs 03/16/22 06/17/25 10/29/23 Rx levothyroxine 100 mcg tablet 100 mcg PO DAILY 08/30/22 06/17/25 10/29/23 History insulin glargine 100 unit/mL 20 unit SUBCUT BEDTIME 11/09/22 06/17/25 10/28/23 History subcutaneous solution (Lantus U-100 Insulin) zinc acetate 25 mg (zinc) capsule 50 mg PO DAILY 09/26/23 06/17/25 10/29/23 History baclofen 5 mg tablet 5 mg PO BID PRN Spasms 10/29/23 06/17/25 10/29/23 History sertraline 100 mg tablet 100 mg PO DAILY 10/29/23 06/17/25 10/29/23 History pantoprazole 40 mg tablet,delayed 40 mg PO DAILY 11/05/23 06/17/25 Unknown History release metoprolol tartrate 25 mg tablet 25 mg PO BID 08/15/24 06/17/25 Unknown History ascorbic acid (vitamin C) 500 mg 500 mg PO DAILY 06/17/25 06/17/25 Unknown History tablet (Vitamin C) docusate sodium 100 mg capsule 100 mg PO BID 06/17/25 06/17/25 Unknown History (Colace) fluticasone propionate 50 2 spray intranasal BEDTIME 06/17/25 06/17/25 Unknown History mcg/actuation nasal spray,suspension furosemide 40 mg tablet (Lasix) 40 mg PO BID 06/17/25 06/17/25 Unknown History isosorbide mononitrate 120 mg 120 mg PO DAILY 06/17/25 06/17/25 Unknown History tablet,extended release 24 hr meclizine 25 mg tablet 25 mg PO TID PRN Dizziness 06/17/25 06/17/25 Unknown History ondansetron HCl 4 mg tablet 4 mg PO Q6H PRN Nausea 06/17/25 06/17/25 Unknown History pravastatin 40 mg tablet 40 mg PO BEDTIME 06/17/25 06/17/25 Unknown History spironolactone 25 mg tablet 25 mg PO DAILY 06/17/25 06/17/25 Unknown History Allergies Allergy/AdvReac Type Severity Reaction Status Date / Time codeine Allergy patient Verified 02/06/25 08:09 doesn't recall flecainide Allergy severe Verified 02/06/25 08:09 vomiting garlic Allergy Unknown Verified 02/06/25 08:09 Iodinated Contrast Media Allergy renal Verified 02/06/25 08:09 disease naproxen Allergy renal Verified 02/06/25 08:09 disease Penicillins Allergy hives Verified 02/06/25 08:09 shellfish derived Allergy unknown Verified 02/06/25 08:09 Sulfa (Sulfonamide Allergy itching Verified 02/06/25 08:09 Antibiotics) tramadol AdvReac makes me Verified 02/06/25 08:09 crazy Current Medications Generic Name Dose Route Start Last Admin Trade Name Freq PRN Reason Stop Dose Admin Acetaminophen 650 mg 06/16/25 18:35 06/21/25 20:24 Acetaminophen 325 Mg Tablet PO 650 mg Q6H PRN Administration Mild/Mod Pain Or Temp >/= 101 Apixaban 2.5 mg 06/17/25 17:00 06/22/25 05:59 Apixaban 2.5 Mg Tablet PO 2.5 mg On Hold: 06/22/25 12:54 BID GONZALO Administration Atorvastatin Calcium 20 mg 06/17/25 21:00 06/19/25 21:11 Atorvastatin 20 Mg Tablet PO 20 mg On Hold: 06/20/25 17:28 BEDTIME GONZALO Administration Bisacodyl 10 mg 06/27/25 05:00 06/28/25 06:17 Bisacodyl 10 Mg Supp MA Not Given DAILY GONZALO Camphor/Menthol/Phenol 1 applic 06/21/25 05:02 06/21/25 05:19 Blistex Lip Oint 7 Gm Tube TOPICAL 1 applic PRN PRN Administration DRYNESS Carbidopa/Levodopa 1 each 06/17/25 17:00 06/28/25 06:16 Carbidopa-Levodopa 25-100mg Tablet PO 1 each BID GONZALO Administration Docusate Sodium 100 mg 06/24/25 17:00 06/28/25 06:16 Docusate Sodium 100 Mg Capsule PO 100 mg BID GONZALO Administration Ergocalciferol 50,000 unit 06/22/25 11:00 06/22/25 10:55 Ergocalciferol (Vitamin D2) 50,000 Unit Capsule PO 50,000 unit Q7D GONZALO Administration Ciprofloxacin/Dextrose 400 mg in 200 mls @ 200 mls/hr 06/22/25 08:15 06/28/25 10:03 Cipro IV 200 mls/hr Q24H GONZALO Administration Protocol Fluconazole 200 mg in 100 mls @ 100 mls/hr 06/26/25 18:45 06/26/25 21:49 Diflucan Premix IV Infused Q48H GONZALO Infusion Ferric Sodium Gluconate 125 mg 110 mls @ 110 mls/hr 06/27/25 12:15 06/27/25 19:26 / Sodium Chloride IV 06/29/25 13:14 Infused Q24H GONZALO Infusion Insulin Glargine 10 unit 06/21/25 21:00 06/27/25 21:34 Insulin Glargine 100 Units/1 Ml SUBCUT 10 unit BEDTIME GONZALO Administration Insulin Human Lispro 0 unit 06/22/25 21:48 06/28/25 08:08 Insulin Lispro 100 Unit/1 Ml SUBCUT Not Given WM&BEDTIME GONZALO Protocol Isosorbide Mononitrate 120 mg 06/18/25 05:00 06/20/25 04:58 Isosorbide Mononitrate Er 60 Mg Tablet PO 120 mg On Hold: 06/20/25 17:00 DAILY GONZALO Administration Lactulose 10 gm 06/27/25 00:40 06/28/25 06:17 Lactulose Oral Liq 20 Gm/30 Ml Udc PO Not Given DAILY GONZALO Levothyroxine Sodium 80 mcg 06/23/25 05:00 06/28/25 06:13 Levothyroxine 100 Mcg Sdv IVP 80 mcg DAILY GONZALO Administration Metoprolol Tartrate 12.5 mg 06/21/25 17:00 06/28/25 06:16 Metoprolol Tartrate 25 Mg Tablet PO 12.5 mg BID GONZALO Administration Midodrine 10 mg 06/22/25 21:00 06/28/25 06:16 Midodrine Hcl 10 Mg Tablet PO 10 mg TID GONZALO Administration Ondansetron HCl 4 mg 06/23/25 08:35 06/27/25 23:48 Ondansetron 2 Mg/Ml Sdv 2 Ml IVP 4 mg Q4H PRN Administration NAUSEA AND VOMITING Pantoprazole Sodium 40 mg 06/18/25 05:00 06/28/25 06:[address] 40 Mg Tablet PO 40 mg DAILY GONZALO Administration Pramipexole Dihydrochloride 1 mg 06/21/25 21:00 06/27/25 21:33 Pramipexole 0.5 Mg Tablet PO 1 mg BEDTIME GONZALO Administration Senna 8.6 mg 06/25/25 10:40 06/27/25 21:36 Sennosides 8.6 Mg Tablet PO 8.6 mg BEDTIME GONZALO Administration Sertraline HCl 100 mg 06/18/25 05:00 06/28/25 06:16 Sertraline 100 Mg Tablet PO 100 mg DAILY GONZALO Administration Sevelamer Carbonate 1,600 mg 06/23/25 12:00 06/28/25 10:00 Sevelamer 800 Mg Tablet PO Not Given [facility] Additional Medication Information Current Medications Acetaminophen (Acetaminophen 325 Mg Tablet) 650 mg PO Q6H PRN PRN Reason: Mild/Mod Pain Or Temp >/= 101 Last Admin: 06/21/25 20:24 Dose: 650 mg Apixaban (Apixaban 2.5 Mg Tablet) 2.5 mg PO BID GONZALO On Hold: 06/22/25 12:54 Last Admin: 06/22/25 05:59 Dose: 2.5 mg Atorvastatin Calcium (Atorvastatin 20 Mg Tablet) 20 mg PO BEDTIME GONZALO On Hold: 06/20/25 17:28 Last Admin: 06/19/25 21:11 Dose: 20 mg Camphor/Menthol/Phenol (Blistex Lip Oint 7 Gm Tube) 1 applic TOPICAL PRN PRN PRN Reason: DRYNESS Last Admin: 06/21/25 05:19 Dose: 1 applic Carbidopa/Levodopa (Carbidopa-Levodopa 25-100mg Tablet) 1 each PO BID [facility] Last Admin: 06/24/25 05:57 Dose: 1 each Ergocalciferol (Ergocalciferol (Vitamin D2) 50,000 Unit Capsule) 50,000 unit PO Q7D [facility] Last Admin: 06/22/25 10:55 Dose: 50,000 unit Glucagon (Glucagon 1 Mg/Ml Kit 1 Ml) 1 mg IM ONCE PRN; Protocol PRN Reason: Adult Acute Hypoglycemia Nursing Prot. Dextrose (D5w) 500 mls @ 0 mls/hr IV ONCE PRN; Protocol PRN Reason: Adult Acute Hypoglycemia Prot Dextrose (D10w) 125 mls @ 750 mls/hr IV PRN PRN; Protocol PRN Reason: Adult Acute Hypoglycemia Nursing Protocol Dextrose (D10w) 250 mls @ 1,000 mls/hr IV PRN PRN; Protocol PRN Reason: Adult Acute Hypoglycemia Nursing Protocol Ciprofloxacin/Dextrose (Cipro) 400 mg in 200 mls @ 200 mls/hr IV Q24H GONZALO; Protocol Last Infusion: 06/24/25 09:51 Dose: Infused Ferric Sodium Gluconate 125 mg (/ Sodium Chloride) 110 mls @ 110 mls/hr IV Q24H GONZALO Stop: 06/29/25 10:59 Last Infusion: 06/23/25 17:14 Dose: Infused Insulin Glargine (Insulin Glargine 100 Units/1 Ml) 10 unit SUBCUT BEDTIME GONZALO Last Admin: 06/23/25 20:47 Dose: 10 unit Insulin Human Lispro (Insulin Lispro 100 Unit/1 Ml) 0 unit SUBCUT WM&BEDTIME GONZALO; Protocol Last Admin: 06/24/25 07:27 Dose: Not Given Isosorbide Mononitrate (Isosorbide Mononitrate Er 60 Mg Tablet) 120 mg PO DAILY GONZALO On Hold: 06/20/25 17:00 Last Admin: 06/20/25 04:58 Dose: 120 mg Levothyroxine Sodium (Levothyroxine 100 Mcg Sdv) 80 mcg IVP DAILY GONZALO Last Admin: 06/24/25 06:01 Dose: 80 mcg Lorazepam (Lorazepam 2 Mg/Ml Inj 1 Ml) 0.5 mg IVP Q4H PRN PRN Reason: NAUSEA Last Admin: 06/23/25 20:42 Dose: 0.5 mg Metoprolol Tartrate (Metoprolol Tartrate 25 Mg Tablet) 12.5 mg PO BID GONZALO Last Admin: 06/24/25 05:57 Dose: 12.5 mg Midodrine (Midodrine Hcl 10 Mg Tablet) 10 mg PO TID GONZALO Last Admin: 06/24/25 05:57 Dose: 10 mg Ondansetron HCl (Ondansetron 2 Mg/Ml Sdv 2 Ml) 4 mg IVP Q4H PRN PRN Reason: NAUSEA AND VOMITING Last Admin: 06/23/25 18:18 Dose: 4 mg Oxycodone/Acetaminophen (Oxycodone-Apap 5-325 Mg Tablet) 1 tab PO Q4H PRN PRN Reason: MODERATE PAIN Last Admin: 06/23/25 03:27 Dose: 1 tab Pantoprazole Sodium (Pantoprazole Dr 40 Mg Tablet) 40 mg PO DAILY [facility] Last Admin: 06/24/25 05:57 Dose: 40 mg Pramipexole Dihydrochloride (Pramipexole 0.5 Mg Tablet) 1 mg PO BEDTIME [facility] Last Admin: 06/23/25 20:08 Dose: 1 mg Sertraline HCl (Sertraline 100 Mg Tablet) 100 mg PO DAILY [facility] Last Admin: 06/24/25 05:57 Dose: 100 mg Sevelamer Carbonate (Sevelamer 800 Mg Tablet) 1,600 mg PO [facility] Last Admin: 06/24/25 08:44 Dose: 1,600 mg PFSH Anesthesia Medical History (Updated 06/25/25 @ 19:38 by Silverio Dominguez MD) Diastolic heart failure Intermittent atrial fibrillation Ascitic fluid Abdominal distention Clear vaginal discharge DNR (do not resuscitate) MATILDA (acute kidney injury) MATILDA (acute kidney injury) Acute UTI Atrial fibrillation Sinus node dysfunction Obstructive sleep apnea Gastritis and duodenitis Enterovirus infection, unspecified CHF exacerbation Community acquired pneumonia Fracture of distal end of right fibula Lung nodule, solitary Restrictive lung disease Restrictive lung disease Transaminitis Mild. Most likely due to passive congestion due her CHF. Lumbar stenosis with neurogenic claudication Difficulty in swallowing High anion gap metabolic acidosis Bilateral renal cysts On multiple imaging modalities all appear simple. No further work-up recommended December 2020 Pacemaker Right bundle branch block Supraventricular tachycardia COVID-19 Elevated troponin Chest pain Chronic respiratory failure with hypoxia and hypercapnia GERD (gastroesophageal reflux disease) Atypical chest pain Cardiac [place] [address] [place]. She had no significant coronary artery disease at that time. Chronic kidney disease Osteoarthritis Syncope Chronic kidney disease -baseline Cr appears to be around 2-2.3 - Symptomatic bradycardia UTI (urinary tract infection) - Bradycardia Anemia -on iron supplementation COPD (chronic obstructive pulmonary disease) Uses 3 L [id number] and BiPAP at night Gout Former smoker Normal coronary angiogram Cardiac angiogram done in September 2015 Chronic back pain History of pulmonary embolism -is on AC with Eliquis Hypothyroidism Type 2 diabetes mellitus Hypertension Diastolic heart failure Chronic anticoagulation Paroxysmal A-fib Surgical History Postoperative state Status post lumbar laminectomy H/O right mastectomy History of tonsillectomy H/O hernia repair H/O colonoscopy 2019 H/O esophagogastroduodenoscopy (~04/2020) 2019 H/O left knee surgery Tubal ligation status History of cholecystectomy Family History Father CAD (coronary artery disease) Family history of premature coronary artery disease Hypertension Mother Cancer Chronic kidney disease (CKD) Hypertension Sister Hyperlipidemia Hypertension Daughter No problems noted. Other Diabetes Social History Smoking and tobacco/nicotine status: former use of tobacco/nicotine Quit status (tobacco/nicotine): has quit using Year quit tobacco: 1970 - 1PPD x 25 Years Alcohol intake: never Substance/Drug Use: never Caregiver/support person: Yes Lives independently: Yes Household members: family Housing: House Marital status: / Current occupational status: retired Do you think of yourself as: Straight/Heterosexual Data Anesthesia 06/28/25 08:47 06/28/25 08:47 Short CBC 06/27/25 06/28/25 Range/Units 06:23 08:47 WBC 12.95 H 12.39 H (3.29-11.43) 10^3/uL Hgb 11.80 12.20 (11.27-16.99) g/dL Hct 38.7 39.2 (36-47) % MCV 96.8 95.4 (85-98) fl Plt Count 135 L 99 L (157-399) 10^3/cmm Neut % (Auto) 80.5 82.8 % Neut # (Auto) 10.43 H 10.25 H (1.8-7.7) 10^3/uL BMP 06/26/25 06/27/25 06/28/25 10:15 06:23 06:23 Sodium 136 137 Cancelled Potassium 4.9 5.4 H Cancelled Chloride 96 L 98 Cancelled Carbon Dioxide 23 24 Cancelled BUN 76 H 50 H Cancelled Creatinine 5.6 H* 4.6 H Cancelled Glucose 151 H 91 Cancelled Calcium 8.8 8.5 Cancelled 06/28/25 08:47 Sodium 136 Potassium 6.0 H Chloride 96 L Carbon Dioxide 22 BUN 73 H Creatinine 5.8 H* Glucose 133 H Calcium 8.3 L Liver Function 06/26/25 06/27/25 06/28/25 Range/Units 10:15 06:23 06:23 Total Bilirubin 1.0 1.1 Cancelled (0.15-1.2) mg/dL AST 71 H 68 H Cancelled (0-32) U/L ALT 25 25 Cancelled (0-33) U/L Alkaline Phosphatase 278 H 259 H Cancelled (35-105) U/L Albumin 3.5 3.3 L Cancelled (3.5-5.2) g/dL 06/28/25 Range/Units 08:47 Total Bilirubin 1.3 H (0.15-1.2) mg/dL AST 67 H (0-32) U/L ALT 26 (0-33) U/L Alkaline Phosphatase 246 H (35-105) U/L Albumin 3.2 L (3.5-5.2) g/dL Cardiac Studies: Echocardiogram 06/17/25 Echocardiogram Ultrasound 07/07/20 Sestamibi Stress Test (Cardiology) 08/27/24 Cardiac Event Monitor 07/17/20 Holter Monitor 01/24/20
--- NOTE | 2025-06-28 11:57 | PC.SOCIAL ---
IMM update pg 2 of IMM updated and reviewed w/ patient. Copy provided and copy dated, initialed and placed in chart.
--- NOTE | 2025-06-28 13:03 | P.PN_ITS ---
Subjective 2 Subjective: NAEON Vitals/I&O/Wt Last Vital Signs Temp 98.6 F 06/28/25 11:19 Pulse 62 06/28/25 11:19 Resp 15 06/28/25 11:19 BP 123/39 06/28/25 11:19 Pulse Ox 97 06/28/25 11:19 O2 Del Method Nasal Cannula 06/28/25 11:19 O2 Flow Rate 3 06/28/25 11:19 FiO2 21 06/26/25 23:23 06/27/25 06/28/25 06/28/25 22:59 06:59 14:59 Intake Total 310 / 410 Output Total 50 / 50 0 / 50 Balance 260 / 360 0 / 360 Weight last 48 hrs Weight 188 lb Weight 166 lb 4 oz Weight 166 lb 3.657 oz Physical Exam 2 Narrative: AOx3 RRR unlabored breathing RA Temporary dialysis catheter on right neck abdomen soft, nt, nd Urinary Catheter Management: Ferrari: Cath Placed During This Visit: yes Reason for Continuing Indwelling Catheter: Acute Urinary Retention or Obstruction Urinary Catheter Date of Insertion: 06/22/25 Urinary Catheter Time of Insertion: 11:45 Data 06/28/25 08:47 06/28/25 08:47 A&P Assessment and plan 1. Acute kidney injury superimposed on chronic kidney disease: Plan: 84yo female whom surgery was consulted for tunneled dialysis catheter insertion. Had an extensive discussion with the patient regarding the risks and benefits of the procedure. Discussed minimally invasive options/non procedural options. Answered all of her questions. The patient decides to proceed with tunneled dialysis catheter insertion, and she understands that the risks include bleeding, infection, catheter malfunctioning, catheter dislodgment, massive bleeding and , arterial injury and stroke, cardiovascular and pulmonary collapse. Patient decides to proceed after having discussed all of this. Nurse present. PDMP PDMP Reviewed: Not Reviewed Attestations 2 Medical Necessity Statement*: NA Coding Level of Care Code Acute Code for Chg Fwd Diagnoses Acute kidney injury superimposed on chronic kidney disease N17.9; N18.9
--- NOTE | 2025-06-28 13:16 | SC_ITS ---
WS: [id number] C-arm fluoroscopy for dialysis catheter insertion, 06/28/2025 Clinical Data: OR PICS Comparison: Portable chest, 06/24/2025 Findings: Dr. Dominguez inserted the right dialysis catheter through the right internal jugular vein. SC/C-arm FL for CVA [id number] Impression: Insertion of right dialysis catheter.
[2025-06-28] MEDS: heparin, porcine 1,000 unit/mL INJ 10 mL 10000 UNIT IRRIGATION (13:42)
[2025-06-28] MEDS: lidocaine-epi 1% PF 1:200,000 30 mL SDV INJECTION (13:43)
[2025-06-28] MEDS: BUPivacaine 0.25% INJ 30 mL INJECTION (13:43)
--- NOTE | 2025-06-28 13:54 | PM.OP ---
Operative Report Date of procedure: June 28, 2025 Pre-op diagnosis: Renal failure Post-op diagnosis: same Post-op findings: Tip of catheter at atriocaval junction confirmed with intraoperative fluoroscopy Procedure done: Tunneled dialysis catheter insertion Implants: Tunneled dialysis catheter Specimens removed/disposition: Sent old temporary dialysis catheter to pathology Pathology: Old temporary dialysis catheter sent to pathology Surgeon: Brad Hernandez MD [employer] Leader: N/A Anesthesia: MAC Estimated blood loss (mL): 20 Complications: N/A Findings: Tip of catheter at atriocaval junction confirmed with intraoperative fluoroscopy Condition: stable Disposition: floor Brief History: 84-year-old female whom surgery was consulted for tunneled dialysis catheter insertion. Discussed risk and benefits and patient agreed to proceed with tunneled dialysis catheter insertion. Procedure: The patient was taken to the operating room and placed under MAC after IV antibiotic had been administered. The old temporary dialysis catheter placed via the right internal jugular vein was removed and pressure was held for 5 minutes. Temporary dialysis catheter was sent to pathology. The chest and neck were prepped and draped in a sterile manner bilaterally. An ultrasound of the right internal jugular vein revealed patent flow, no thrombus identified. Using introducer needle the internal jugular vein on the right side was accessed and guidewire passed into the right atrium under fluoroscopy. Under fluoroscopy the location for the dialysis catheter was marked. Using 15 blade a skin incision was extended at the vein access site as well as the previously marked location on the right chest wall. The dialysis catheter was attached to the tunneler and passed subcutaneously, exiting at the venous access site. Serial dilators were passed over the guidewire under fluoroscopy. Finally the dilator peel-away sheath was passed over the guidewire and the inner dilator and guidewire was removed and the dialysis catheter was introduced into the right internal jugular vein as the peel-away sheath was removed. The tip of the catheter was noted to be in the right atriocaval junction. Both ports of the catheter julisa blood and flushed easily. The catheter was sutured to the skin using 3-0 nylon and the venous access site was closed with 4-0 Monocryl and Dermabond. A total of 5 mL of 1:10,000 heparin was injected into the 2 ports under dialysis catheter. Fluoroscopic guidance and interpretation for passage of guidewire and dilator and placement of catheter in the atriocaval junction.
--- NOTE | 2025-06-28 14:57 | ANE.PACU2 ---
Inpatient post-anesthesia follow up: Airway intact: Yes Vital signs: Temperature 97.6 F Pulse Rate [Orthos tatic 60 Standing] Pulse Rate [Orthos tatic 61 Sitting] Pulse Rate [Orthos tatic Lying] 60 Pulse Rate 59 Respiratory Rate 18 Blood Pressure [Or thostatic 103/66 Standing] Blood Pressure [Or thostatic 100/60 Sitting] Blood Pressure [Or thostatic 90/59 Lying] Blood Pressure 112/69 Pulse Oximetry 99 Oxygen Delivery Me thod Nasal Cannula Oxygen Flow Rate 3 Fraction of Inspir ed Oxygen 21 Hydration adequate: Yes Nausea and vomiting: No Pain level: 1 Mental status: Baseline
[2025-06-28 15:15] LABS: Vit D 1,25 (Oh)2, Total <8 pg/mL (18-72); Vit D2 1,25 (Oh)2 <8 pg/mL; Vit D3 1,25 (Oh)2 <8 pg/mL
--- NOTE | 2025-06-28 16:10 | P.PN_ITS ---
<Statement entered by Uziel Ramos M.D - 07/04/25 11:05> Patient was cared for in conjunction with an advanced practice practitioner.? I reviewed the chart and all pertinent data including imaging, telemetry, and laboratory results.? I discussed the patient in detail with the advanced practice practitioner.? Please see? their documentation for progress note, testing results and agreed upon plan of care for the patient. Subjective 2 Subjective: Patient being seen today. She got a permanent dialysis catheter. Resting at this time. Vitals/I&O/Wt Last Vital Signs Temp 96.1 F L 06/28/25 15:51 Pulse 61 06/28/25 15:51 Resp 18 06/28/25 15:51 BP 108/57 06/28/25 15:51 Pulse Ox 96 06/28/25 14:50 O2 Del Method Nasal Cannula 06/28/25 14:50 O2 Flow Rate 3 06/28/25 14:50 FiO2 21 06/26/25 23:23 06/28/25 06/28/25 06/28/25 06:59 14:59 22:59 Intake Total 0 / 0 Output Total 0 / 50 Balance 0 / 360 -20 / -20 Weight last 48 hrs Weight 188 lb Weight 166 lb 4 oz Weight 166 lb 3.657 oz Physical Exam 2 Narrative: General: No apparent distress Muskuloskeletal: Full ROM Respiratory: Normal respiratory effort, right clear, bilateral posterior lobes clear Cardio: No JVD, regular rate, regular rhythm, S1 S2 normal, grade II/ murmur mitral space, peripheral pulses 2+ radial palpated bilaterally GI: Normal to inspection, nondistended Extremities: Full ROM, normal, normal capillary refill, no cyanosis, 1+ nonpitting edema bilateral lower extremities Neuro: Alert and oriented x4, no focal motor deficits Psych: Affect normal, denies suicidal ideation, mental status grossly normal Skin: No rashes or lesions noted, no wounds Urinary Catheter Management: Ferrari: Cath Placed During This Visit: yes Reason for Continuing Indwelling Catheter: Acute Urinary Retention or Obstruction Urinary Catheter Date of Insertion: 06/22/25 Urinary Catheter Time of Insertion: 11:45 Data 06/28/25 08:47 06/28/25 08:47 A&P Assessment and plan 1. Elevated troponin: 2. Intermittent atrial fibrillation: 3. Acute kidney injury superimposed on chronic kidney disease: 4. Hypotension: 5. Presence of permanent cardiac pacemaker: 6. Severe mitral valve regurgitation: 7. Acute on chronic heart failure with preserved ejection fraction: Plan: Patient on Dialysis. Now has permanent catheter. Echo was reviewed by Dr. Ramos. Reported patient would not be a candidate for mitraclip due to presence of heavy calcification on the valve as well as stenosis to the area. Continue medical management for now. Patient had bright red blood per rectum. Eliquis is on hold for now. Restart as soon as deemed ok by primary. PDMP PDMP Reviewed: Not Reviewed Attestations 2 Medical Necessity Statement*: Deferred to primary Coding Level of Care Code Acute Code for g Fwd Diagnoses Elevated troponin R79.89 Intermittent atrial fibrillation I48.0 Acute kidney injury superimposed on chronic kidney disease N17.9; N18.9 Hypotension I95.9 Presence of permanent cardiac pacemaker Z95.0 Severe mitral valve regurgitation I34.0 Acute on chronic heart failure with preserved ejection fraction I50.33
[2025-06-28] MEDS: ferric gluconate 125 MG in sodium chloride 0.9% (100 ml) 100 ML 110 MG IV (16:13)
[2025-06-28] MEDS: heparin, porcine 1,000 unit/mL INJ 10 mL 10000 UNIT INTRACATH (16:13)
[2025-06-28] MEDS: heparin, porcine 1,000 unit/mL INJ 10 mL 1000 UNIT IV (16:14)
--- NOTE | 2025-06-28 17:39 | P.PN_ITS ---
Subjective 2 Subjective: She states overall is doing somewhat better. So far no further nausea or vomiting. Vitals/I&O/Wt Last Vital Signs Temp 97.1 F L 06/28/25 16:00 Pulse 60 06/28/25 16:00 Resp 14 06/28/25 16:00 BP 118/58 06/28/25 16:00 Pulse Ox 95 06/28/25 15:10 O2 Del Method Nasal Cannula 06/28/25 15:10 O2 Flow Rate 3 06/28/25 15:10 FiO2 21 06/26/25 23:23 06/28/25 06/28/25 06/28/25 06:59 14:59 22:59 Intake Total 0 / 0 200 / 200 Output Total 0 / 50 20 / 20 Balance 0 / 360 -20 / -20 200 / 180 Weight last 48 hrs Weight 85.275 kg Weight 75.41 kg Physical Exam 2 Const: COMMON NORMALS: patient oriented x3 and alert GENERAL APPEARANCE: c ooperative ORIENTATION/CONSCIOUSNESS: Yes awake HENMT: COMMON NORMALS: oropharynx normal OTHER: Right IJ HDC Neck/C-Spine: COMMON NORMALS: no JVD Resp: COMMON NORMALS: normal respiratory effort and clear to auscultation bilaterally AUSCULTATION: clear to auscultation bilaterally Cardio: COMMON NORMALS: no JVD, regular rhythm, S1 normal heart sound present, S2 normal heart sound present and No murmurs present (Cardio) RHYTHM: regular rhythm HEART SOUNDS: S1 normal heart sound present and S2 normal heart sound present GI: COMMON NORMALS: Normal to inspection, nondistended, normoactive bowel sounds present, Soft to palpation and non-tender INSPECTION: Yes abdominal distension PALPATION: Yes Soft to palpation Extremity: COMMON NORMALS: no joint enlargement and no pedal edema N ARRATIVE EXTREMITY EXAM: L arm PICC GENERAL: Yes edema (Trace) Neuro: COMMON NORMALS: patient oriented x3 and moves all extremities S ENSORIUM/ORIENTATION: Yes alert Skin: COMMON NORMALS: no rashes or lesions noted GENERAL SKIN EXAM: no rashes or lesions noted Urinary Catheter Management: Ferrari: Cath Placed During This Visit: yes Reason for Continuing Indwelling Catheter: Acute Urinary Retention or Obstruction Urinary Catheter Date of Insertion: 06/22/25 Urinary Catheter Time of Insertion: 11:45 Data 06/28/25 08:47 12/19/25 08:47 A&P Assessment and plan 1. Acute kidney injury superimposed on chronic kidney disease: Discussed with surgery, plans for tunneled dialysis catheter today. Discussed with nursing, housing case manager, subsequent plans for hemodialysis as per nephrology. Continued arrangements for outpatient dialysis. As per discussion with her grandson prior to the visit, with possible discharge tomorrow. Reviewed chemistry. Intake and output. Still had to be drawn peripherally. Recent. Discussed with head automatic sawyer, further assessment today to determine whether proceed with additional dialysis versus reassess kidney function for any improvement. Pending nephrology reassessment. Discussed with nursing, housing case manager. Reviewed intake and output, chemistry. Continue to monitor urine output. Further discussed with cardiology, however, dopamine or dobutamine currently would be risky to start with concern for worsening of her severe MR, risk of pulm edema. Increased midodrine dose, so far with good response and tolerating medication. In case hemodynamic support was needed, Shaquille-Synephrine could be considered. With worsened condition not a candidate for MitraClip. 2. Acute on chronic diastolic heart failure: Continue dialysis. Still minimal urine output. Continue hemodialysis as per renal reassessmentsDiuretics on hold with worsening renal function. Overall likely without further hypervolemia. She is on baseline oxygen, normally on 3 L. Suspect mitral regurgitation contributing to similar dyspnea. Dialysis as per renal response. Discussed with housing case manager, arrangements are being made for post discharge dialysis. 3. Bright red blood per rectum: Reviewed CBC. So far without recurrence. Anticoagulation has been held for dialysis catheter. Continue bowel regimen/avoid constipation. Holding off blood thinner in anticipation of dialysis catheter placement. So far without additional blood in the stools, suspect related to constipation. Possibly secondary to constipation. So far without recurrence. Did have a very hard stool. Discussed with family continue stool softeners. Held off blood thinners for now as per discussion. 4. Hyperkalemia: Will need to continue dialysis. So far resolved with treatment. But with worsening renal function. Repeat chemistry. Min elev CK. 5. Iron deficiency anemia, unspecified iron deficiency anemia type: Reviewed hemoglobin. Has been staying steady. Appears to be chronic and her hemoglobin is at her baseline. Will continue to monitor. 6. Presence of permanent cardiac pacemaker: Keep on telemetry 7. Benign essential hypertension with target blood pressure below 140/90: Restart home medication once medication conciliation completed 8. Diabetes: FSBS, sign scale insulin Reduce Lantus dose, monitor for risk of hypoglycemia. 9. Hypothyroidism: TSH noted with worsened elevation. Possibly absorbing levothyroxine well. Switched to IV levothyroxine. Continue IV for now. Continue volume optimization, dialysis. Plan: Thrush, vulvovaginal candidiasis: Discussed with pharmacy, add Diflucan. Discussed with pharmacist. Ordered with renal dosing. UTI: Completed course with Cipro. DC antibiotic. Possible liver cirrhosis: With nodular contour of the liver suggestive of cirrhosis on review of prior CT. Not aware of past history of cirrhosis appears may be new diagnosis. Prior serology with negative hepatitis panel. Does not drink alcohol. I suspect nonalcoholic fatty liver disease basis. Physical deconditioning: Discussed with PT, will be reevaluated. Per discussion of disposition plans, plans to return home. Poor appetite: Oral intake is tolerating. Nutritional shakes as tolerated. A-fib: Eliquis on hold. Metoprolol. Monitor for risk of hypotension PDMP PDMP Reviewed: Not Reviewed Attestations 2 Medical Necessity Statement*: Continue admission for reassessment of renal failure, volume overload in a lady with additional comorbidities as above. Placement of dialysis catheter, arrangement for continued outpatient dialysis. and High MDM includes amount and/or complexity of data reviewed/ordered [ resulted lab(s)/test(s), independent historian and other healthcare professional discussion] as documented Diagnoses Acute kidney injury superimposed on chronic kidney disease N17.9; N18.9 Acute on chronic diastolic heart failure I50.33 Heart failure chronicity: acute on chronic Bright red blood per rectum K62.5 Hyperkalemia E87.5 Iron deficiency anemia, unspecified iron deficiency anemia type D50.9 Anemia type: iron deficiency Iron deficiency anemia type: unspecified iron deficiency Presence of permanent cardiac pacemaker Z95.0 Benign essential hypertension with target blood pressure below 140/90 I10 Diabetes E11.9 Hypothyroidism E03.9
[2025-06-28] MEDS: fluconazole premix 200 MG/100 ML PREMIX 100 MG IV (19:31)
[2025-06-28] MEDS: PRAMIPEXOLE 0.5 MG TABLET 1 MG PO (20:52)
[2025-06-28] MEDS: insulin glargine 100 units/1 mL 10 UNIT SUBCUT (22:01)
[2025-06-29] VITALS (8 sets, daily range): BP systolic 93–115; BP diastolic 9–70; PULSE 60–69; RESP 14–19; TEMP 36.4–36.8; O2SAT 95–100
[2025-06-29] MEDS: MIDODRINE HCL 10 MG TABLET PO ×3 (04:23→20:52)
[2025-06-29] MEDS: carbidopa-levodopa 25-100mg Tablet 1 EACH PO ×2 (04:23→15:28)
[2025-06-29] MEDS: lactulose oral liq 20 gm/30 mL UDC 10 GM PO (04:30)
[2025-06-29 05:23] LABS: Alanine Aminotransferase 15 U/L (0-33); Albumin Level 3.3 g/dL (3.5-5.2); Alkaline Phosphatase 243 U/L (35-105); Anion Gap 18.3 (5-19); Aspartate Amino Transferase 58 U/L (0-32); Blood Urea Nitrogen 45 mg/dL (8-23); Calcium 8.4 mg/dL (8.5-10.5); Carbon Dioxide 26 mmol/L (22-29); Chloride 96 mmol/L (98-107); Globulin 1.9 g/dL (1.3-4.6); Glucose 111 mg/dL (65-115); Osmolality Calculated 294 mOsm/kg (285-295); Potassium 4.3 mmol/L (3.5-5.1); Sodium 136 mmol/L (136-145); Total Protein 5.2 g/dL (6.6-8.7)
[2025-06-29] MEDS: ondansetron 2 mg/ML SDV 2 mL 4 MG IVP ×2 (06:02→23:27)
--- NOTE | 2025-06-29 09:36 | PM.PN ---
Subjective Subjective: no new c/o Medications: Reviewed: Yes Vitals/I&O/Wt Last Vital Signs Temp 97.6 F 06/29/25 07:26 Pulse 60 06/29/25 07:26 Resp 18 06/29/25 07:26 BP 103/9 06/29/25 07:26 Pulse Ox 98 06/29/25 07:26 O2 Del Method Nasal Cannula 06/29/25 07:26 O2 Flow Rate 3 06/29/25 07:26 FiO2 21 06/26/25 23:23 06/28/25 06/29/25 06/29/25 22:59 06:59 14:59 Intake Total 910 / 910 209.5 / 1119.5 0 / 0 Output Total 2497 / 2517 Balance -1587 / -1607 209.5 / -1397.5 0 / 0 Weight last 48 hrs Weight 70.851 kg Weight 73.5 kg Weight 85.275 kg Physical Exam Narrative: Patient is sitting up in bed], vital signs noted. Patient requiring nasal cannula oxygen. HEENT normocephalic atraumatic. Neck is supple. Has a right neck dialysis catheter Lungs still have basal dullness and crackles improved from yesterday Heart has a murmur is regular positive S1-S2. Abdomen is soft, nontender, positive distended with ascites. Extremities -b/l leg 1+ edema Urinary Catheter Management: Ferrari: Cath Placed During This Visit: yes Reason for Continuing Indwelling Catheter: Other Urinary Catheter Date of Insertion: 06/22/25 Urinary Catheter Time of Insertion: 11:45 Data 06/28/25 08:47 06/29/25 04:48 A&P Assessment and plan 1. Acute kidney injury superimposed on chronic kidney disease: 84-year-old lady with baseline creatinine 1.1 mg/dL giving her mild CKD stage IIIa. Patient has heart failure preserved EF, coronary artery disease, intermittent atrial fibrillation, Moderate to severe mitral regurgitation. Patient was admitted with worsening shortness of breath patient was given diuretics. Patient has had hypotension patient has developed acute kidney injury between June 17 and June 18 and it continues with an oliguric renal failure 1. Oliguric acute kidney injury- Patient likely has ATN versus cardiorenal syndrome. 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 2 CHF: Diastolic heart function, with severe MR from pulmonary hypertension and tricuspid regurgitation 3.vitamin D deficiency, replete 4. Patient has mild anemia appears stable her thrombocytopenia has improved. Iron saturation 8.4% ferritin 173 will give IV iron. Hemoglobin stable status post dialysis, improved 5. Hyponatremia, improved . Patient was seen and examined using A/V equipment. The case was discussed in detail with the patient, her nurse and her son. The patient and family consented to telehealth and to dialysis. Plan: As above. PDMP PDMP Reviewed: Not Reviewed Attestations Medical Necessity Statement*: per medicine Coding Level of Care Code Acute Code for Chg Fwd Diagnoses Acute kidney injury superimposed on chronic kidney disease N17.9; N18.9
--- NOTE | 2025-06-29 09:40 | P.PN_ITS ---
Subjective 2 Subjective: No acute events overnight Tunneled dialysis catheter functional Vitals/I&O/Wt Last Vital Signs Temp 97.6 F 06/29/25 07:26 Pulse 60 06/29/25 07:26 Resp 18 06/29/25 07:26 BP 103/9 06/29/25 07:26 Pulse Ox 98 06/29/25 07:26 O2 Del Method Nasal Cannula 06/29/25 07:26 O2 Flow Rate 3 06/29/25 07:26 FiO2 21 06/26/25 23:23 06/28/25 06/29/25 06/29/25 22:59 06:59 14:59 Intake Total 910 / 910 209.5 / 1119.5 0 / 0 Output Total 2497 / 2517 Balance -1587 / -1607 209.5 / -1397.5 0 / 0 Weight last 48 hrs Weight 156 lb 3.2 oz Weight 162 lb 0.636 oz Weight 188 lb Physical Exam 2 Narrative: Chest: Unlabored breathing room air. Tunneled dialysis catheter functional. Heart: Regular rate and rhythm. Abdomen: Soft, nontender, nondistended. No masses or lymphadenopathy. Urinary Catheter Management: Ferrari: Cath Placed During This Visit: yes Reason for Continuing Indwelling Catheter: Other Urinary Catheter Date of Insertion: 06/22/25 Urinary Catheter Time of Insertion: 11:45 Data 06/28/25 08:47 06/29/25 04:48 A&P Assessment and plan 1. Acute on chronic heart failure with preserved ejection fraction: Plan: 84-year-old female status post abdominal dialysis catheter insertion. Catheter functional. Rest of care per hospitalist. Follow-up with nephrology. PDMP PDMP Reviewed: Not Reviewed Attestations 2 Medical Necessity Statement*: N/A Coding Level of Care Code 02628 Diagnoses Acute on chronic heart failure with preserved ejection fraction I50.33
--- NOTE | 2025-06-29 13:17 | PM.DCS ---
Discharge Providers Date of Admission: 06/16/25 18:06 Date of Discharge: June 29, 2025 Attending Provider at Admission: Seven Flowers MD Attending Provider at Discharge: Silverio Dominguez Primary Care Provider: Terence Rogers Diagnoses at Discharge Discharge Diagnosis 1. Acute kidney injury superimposed on chronic kidney disease: Reason for Visit Reason for Visit: trouble breathing Physical Exam Urinary Catheter Management: Ferrari: Cath Placed During This Visit: yes Reason for Continuing Indwelling Catheter: Other Urinary Catheter Date of Insertion: 06/22/25 Urinary Catheter Time of Insertion: 11:45 Discharge Data Studies Completed and Pending Completed Studies During Hospitalization Category Date Time Status CT abdomen pelvis wo con [id number] Stat Cat Scan 06/16/25 16:54 Completed CXRIE [XR chest 2V insp/exp 13183] Routine Exams 06/21/25 10:26 Completed CXRP [XR chest 1V portable [id number]] Routine Exams 06/24/25 12:44 Completed CXRP [XR chest 1V portable 21347] Stat Exams 06/23/25 11:49 Completed XR abdomen 1V* [id number] Routine Exams 06/17/25 18:32 Completed XR chest 1V 35853 Stat Exams 06/16/25 16:38 Completed CV. echo complete* [id number] Stat Ultrasound 06/17/25 18:35 Completed US renal BI* [id number] Routine Ultrasound 06/21/25 10:31 Completed Pending at discharge Category Date Time Status C-arm [place] for CVA [id number] Routine Exams 06/28/25 13:16 Taken Pathology: Surgical [PTH] Routine Pth 06/28/25 13:45 Received Radiology Impressions Abdomen/Pelvis CT 06/16/25 16:54 IMPRESSION: 1. Nodular liver capsule contour consistent with early cirrhosis. 2. Trace right upper abdominal perihepatic low-density simple ascites fluid. 3. Post-cholecystectomy biliary system normal. 4. Right para-aortic enlarged 1.3 cm short axis lymph node (series 4, image 31) along with shotty subcentimeter aortocaval lymph nodes. 5. Mild mesenteric adenitis nonspecific; often postinfectious or reactive. 6. Uncomplicated distal colonic diverticulosis. 7. Posterior/dependent superficial soft tissue edema; suspicious for anasarca. 8. Advanced age-appropriate degenerative spinal changes, with other chronic/non-acute findings as described above. 9. Severe scattered vascular calcifications, with greatest calcification involving the aorta and splenic artery and left renal artery. 10. Small volume intraluminal bladder gas, most likely post-instrumentation. If no recent instrumentation, consider infection with gas-forming organisms. 11. Lung interstitial reticular thickening, likely chronic, without focal alveolar consolidation. Nonspecific; most consistent with chronic fibrotic interstitial change, age-related/nonspecific. Recommend correlation with clinical history; pulmonary function tests if clinically indicated. COMMENTS: 1. Consider repeat with IV contrast if clinically warranted. 2. Bowel evaluation limited; repeat with oral contrast if clinically warranted. Abdomen X-Ray 06/17/25 18:32 IMPRESSION: No definite acute findings. Renal Ultrasound 06/21/25 10:31 IMPRESSION: 1. No acute findings. No renal stones or obstruction. 2. Both kidneys demonstrate generalized increased echogenicity compatible with nonspecific chronic renal disease. 3. Generalized intra-abdominal ascites. Chest X-Ray 06/24/25 12:44 IMPRESSION: Satisfactory position of the right-sided PICC line. Laboratory Results WBC 12.39 10^3/uL (3.29-11.43) H 06/28/25 08:47 RBC 4.11 10^6/uL (3.85-5.65) 06/28/25 08:47 Hgb 12.20 g/dL (11.27-16.99) 06/28/25 08:47 Hct 39.2 % (36-47) 06/28/25 08:47 MCV 95.4 fl (85-98) 06/28/25 08:47 MCH 29.7 pg (27-33) 06/28/25 08:47 MCHC 31.1 g/dL (30-55) 06/28/25 08:47 RDW 19.4 % (12.1-15.1) H 06/28/25 08:47 Plt Count 99 10^3/cmm (157-399) L 06/28/25 08:47 MPV Not Reportable 06/28/25 08:47 Neut % (Auto) 82.8 % 06/28/25 08:47 Lymph % (Auto) 6.3 % 06/28/25 08:47 Dickson % (Auto) 9.1 % 06/28/25 08:47 Eos % (Auto) 0.2 % 06/28/25 08:47 Baso % (Auto) 0.1 % 06/28/25 08:47 Neut # (Auto) 10.25 10^3/uL (1.8-7.7) H 06/28/25 08:47 Lymph # (Auto) 0.8 10^3/uL (0.8-4.8) 06/28/25 08:47 Dickson # (Auto) 1.1 10^3/uL (0.2-0.9) H 06/28/25 08:47 Eos # (Auto) 0.0 10^3/uL (0.0-0.8) 06/28/25 08:47 Baso # (Auto) 0.0 10^3/uL (0.0-0.1) 06/28/25 08:47 Nucleated RBC % (auto) 0.4 % 06/28/25 08:47 Nucleated RBCs # 0.1 /100WBC 06/28/25 08:47 Sodium 136 mmol/L (136-145) 06/29/25 04:48 Potassium 4.3 mmol/L (3.5-5.1) 06/29/25 04:48 Chloride 96 mmol/L (98-107) L 06/29/25 04:48 Carbon Dioxide 26 mmol/L (22-29) 06/29/25 04:48 Anion Gap 18.3 (5-19) 06/29/25 04:48 BUN 45 mg/dL (8-23) H 06/29/25 04:48 Creatinine 4.3 mg/dL (0.5-0.9) H 06/29/25 04:48 GFR Calculation Not Reportable 06/29/25 04:48 Glucose 111 mg/dL (65-115) 06/29/25 04:48 POC Glucose 92 mg/dL (70-110) 06/29/25 11:05 Calculated Osmolality 294 mOsm/kg (285-295) 06/29/25 04:48 Uric Acid 3.5 mg/dL (2.4-5.7) 06/21/25 11:20 Calcium 8.4 mg/dL (8.5-10.5) L 06/29/25 04:48 Phosphorus 6.2 mg/dL (2.5-4.5) H 06/27/25 06:23 Magnesium 2.5 mg/dL (1.7-2.3) H 06/27/25 06:23 Iron 21 ug/dL (37-145) L 06/22/25 03:12 TIBC 248 mcg/dl 06/22/25 03:12 % Saturation 8.4 % (20-50) L 06/22/25 03:12 Unsat Iron Binding 227 ug/dL (112-347) 06/22/25 03:12 Ferritin 173 ng/mL (15-150) H 06/22/25 03:12 Total Bilirubin 1.5 mg/dL (0.15-1.2) H 06/29/25 04:48 AST 58 U/L (0-32) H 06/29/25 04:48 ALT 15 U/L (0-33) 06/29/25 04:48 Alkaline Phosphatase 243 U/L (35-105) H 06/29/25 04:48 Creatine Kinase 236 U/L (26-192) H 06/21/25 11:20 Troponin T Baseline 69 ng/L (0-10) H 06/16/25 17:04 Troponin T 120 Minute 68.81 ng/L (0-10) H 06/16/25 19:22 Delta Troponin T -0.19 ABS# (0-10) L 06/16/25 19:22 Troponin T Hi Sens 6Hr 68.77 ng/L (0-10) H 06/16/25 23:04 Troponin T Hi Sens 6Hr Delta -0.23 ng/L (0-12) L 06/16/25 23:04 C-Reactive Protein 11.8 mg/L (0.0-4.9) H 06/16/25 17:04 NT-Pro-B Natriuret Pep 7456 pg/mL (0-450) H 06/16/25 17:04 Total Protein 5.2 g/dL (6.6-8.7) L 06/29/25 04:48 Albumin 3.3 g/dL (3.5-5.2) L 06/29/25 04:48 Globulin 1.9 g/dL (1.3-4.6) 06/29/25 04:48 Lipase 32 U/L (13-60) 06/17/25 03:46 25-OH Vitamin D Total 18 ng/mL (30-100) L 06/22/25 03:12 1,25 Dihydroxy Vit D2 <8 pg/mL 06/21/25 11:20 1,25 Dihydroxy Vit D3 <8 pg/mL 06/21/25 11:20 TSH 8.04 uIU/mL (0.27-4.20) H 06/22/25 03:12 Random Cortisol 19.79 ug/dL (2.47-19.5) H 06/22/25 03:12 Urine Color Dark yellow (Yellow) A 06/21/25 16:15 Urine Appearance Turbid (CLEAR) A 06/21/25 16:15 Urine pH 5.0 (5-7) 06/21/25 16:15 Ur Specific [place] 1.021 (1.005-1.030) 06/21/25 16:15 Urine Protein 3+ (Negative) A 06/21/25 16:15 Urine Glucose (UA) Negative (Normal) 06/21/25 16:15 Urine Ketones 1+ (Negative) H 06/21/25 16:15 Urine Blood 3+ (Negative) A 06/21/25 16:15 Urine Nitrate Negative (Negative) 06/21/25 16:15 Urine Bilirubin 2+ (Negative) H 06/21/25 16:15 Urine Urobilinogen 1.0 mg/dL (Negative) 06/21/25 16:15 Ur Leukocyte Esterase 3+ (Negative) A 06/21/25 16:15 Urine RBC 3-5 /hpf (0-2) 06/21/25 16:15 Urine WBC >100 /hpf (0-5) H 06/21/25 16:15 Ur Squamous Epith Cells 6-10 /hpf (0-5) 06/21/25 16:15 Calcium Oxalate Crystal Rare /hpf 06/18/25 05:06 Amorphous Sediment Not Reportable 06/21/25 16:15 Urine Bacteria 4+ /hpf (NONE) H 06/21/25 16:15 Hyaline Casts 105.32 /lpf 06/21/25 16:15 Ur Random Sodium 48 mmol/L 06/21/25 11:45 Ur Random Potassium 39 mmol/L 06/21/25 11:45 Ur Random Chloride 33 mmol/L 06/21/25 11:45 FOSTER Screen Negative (NEGATIVE) 06/21/25 11:20 ANCA Screen Negative (NEGATIVE) 06/21/25 11:20 ANCA Titer Not Reportable 06/21/25 11:20 Anti-ds DNA IgG Ab <1 IU/mL 06/21/25 11:20 Glomerular Base Mem IgG <1.0 AI 06/21/25 11:20 Complement C3 124 mg/dL (90-180) 06/21/25 11:20 Complement C4 24 mg/dL (10-40) 06/21/25 11:20 Hep Bs Antigen Non-reactive (Nonreactive) 06/23/25 04:39 Hep Bs Antibody < 3.5 (11.5-1000) L 06/23/25 04:39 Hep B Core Total Ab Non-reactive (Nonreactive) 06/21/25 11:20 Hepatitis C Antibody Non-reactive (Nonreactive) 06/23/25 04:39 Influenza A (PCR) Negative (Negative) 06/16/25 19:28 Influenza Type B (PCR) Negative (Negative) 06/16/25 19:28 RSV (PCR) Negative (Negative) 06/16/25 19:28 SARS-CoV-2 (PCR) Negative (Negative) 06/16/25 19:28 Vitals Last Vital Signs Temp 98.2 F 06/29/25 11:06 Pulse 60 06/29/25 11:06 Resp 14 06/29/25 11:06 BP 106/60 06/29/25 11:06 Pulse Ox 100 06/29/25 11:06 O2 Del Method Room Air 06/29/25 11:06 O2 Flow Rate 3 06/29/25 07:26 FiO2 21 06/26/25 23:23 Discharge Plan Discharge Patient Disposition: Home Health Service Condition: Stable Prescriptions: New docusate sodium 100 mg Capsule 100 mg PO BID Qty: 180 0RF bisacodyl 10 mg Suppository 10 mg GA DAILY PRN (Reason: Constipation) Qty: 30 0RF ferrous sulfate 325 mg (65 mg iron) tablet 325 mg PO EVERY OTHER DAY Qty: 90 0RF fluconazole 200 mg tablet 200 mg PO Q48H 21 Days Qty: 11 0RF Continued nitroglycerin 0.4 mg tablet, sublingual 0.4 mg SUBLINGUAL Q5M PRN (Reason: chest pain) 30 Days Qty: 30 3RF Rx Instructions: until response; do not exceed 3 doses per episode (DME) post mastectomy Bras See Rx Instructions .Route .MEDSUPPLY Qty: 4 0RF Rx Instructions: As directed apixaban 2.5 mg tablet 2.5 mg PO BID Qty: 90 3RF oxycodone-acetaminophen 10-325 mg tablet 1 tab PO Q6H PRN (Reason: Pain, Mild) carbidopa-levodopa 25-100 mg tablet 1 tab PO BID pramipexole 0.5 mg tablet 2 mg PO BEDTIME cyanocobalamin (vitamin B-12) 1,000 mcg/mL solution 1,000 mcg IM Q30D Rx Instructions: OF THE allopurinol 300 mg tablet 300 mg PO BID sertraline 100 mg tablet 100 mg PO DAILY Rx Instructions: at bedtime pantoprazole 40 mg tablet,delayed release (DR/EC) 40 mg PO DAILY furosemide [Lasix] 40 mg Tablet 40 mg PO BID Rx Instructions: AM and Lunch isosorbide mononitrate 120 mg Tablet Extended Release 24 Hr 120 mg PO DAILY docusate sodium [Colace] 100 mg Capsule 100 mg PO BID pravastatin 40 mg Tablet 40 mg PO BEDTIME spironolactone 25 mg Tablet 25 mg PO DAILY ondansetron HCl [Zofran] 4 mg Tablet 4 mg PO Q6H PRN (Reason: Nausea) fluticasone propionate [Flonase] 50 mcg/actuation [place],Suspension 2 spray INTRANASAL BEDTIME Rx Instructions: administer into each nostril meclizine 25 mg Tablet 25 mg PO TID PRN (Reason: Dizziness) ascorbic acid (vitamin C) [Vitamin C] 500 mg Tablet 500 mg PO DAILY levothyroxine 100 mcg tablet 100 mcg PO DAILY zinc acetate 25 mg (zinc) Capsule 50 mg PO DAILY Changed metoprolol tartrate 25 mg tablet 12.5 mg PO BID 1 Days Qty: 1 0RF Rx Instructions: Decrease dose to 12.5mg insulin glargine [Lantus U-100 Insulin] 100 unit/mL Solution 10 unit SUBCUT BEDTIME Qty: 10 0RF Rx Instructions: Dose change only Discontinued baclofen 5 mg tablet 5 mg PO BID PRN (Reason: Spasms) Discharge Order = DC NOW: Discharge Order (Routine); Ordered 06/29/25 Ordered By: Silverio Dominguez Other Ambulatory Orders: DME: [employer] (Order) Location: None Selected Ordered By: Silverio Dominguez Referrals: [facility] - [Outside] - 07/01/25 1:00 pm Referral Note: You are scheduled for dialysis on , , and @ 1:20pm. However due to the holidays your schedule for next week will be Tuesday and Tuesday @ 1:00pm. They will let you know the final day when you go to your appointment on Tuesday. Moon Antoine NP [Nurse Practitioner, Cardiology] - 4-7 days Referral Note: We have notified your physician's clinic of the need for a follow-up appointment to be scheduled. If you have not heard from them within the next 2 business days, please call them directly. Terence Rogers [Primary Care Provider, Family Practice] - 4-7 days Referral Note: You will need to call your primary care provider Tuesday to make a hospital discharge follow up in 4-7 days. Discharge Diet: As Directed and Diabetic Discharge Activity: Increase activity as tolerated, Use walker/crutches as instructed, As per PT/OT instructions and Oxygen as instructed Patient Instructions: Acute Wound Care (DC), Opioid Safety, Post Anesthesia Care, Patient Portal & Raissa Instructions Activity Restrictions/Additional Instructions: Please follow-up with your primary provider for reassessment of renal function, reassessment of blood counts. Follow-up for reassessment of congestive heart failure, follow-up with primary provider and with cardiology. Continue hemodialysis after discharge. Continue management of constipation, bowel regimen. Maintain kidney dialysis diet, low potassium diet. Follow-up thyroid function. Discharge Attestations Status at Discharge: Cognitive status at discharge: cognitively intact, Behavioral status at discharge: cooperative, Coding Level of Care Code Acute Code for Chg Fwd Diagnoses Acute kidney injury superimposed on chronic kidney disease N17.9; N18.9
--- NOTE | 2025-06-29 15:34 | PC.NURSE ---
pt requested to speak to this nurse, pt stated, i do not want to sign that poa! i educ pt she does not have to sign anything she does not want to.
--- NOTE | 2025-06-29 15:49 | PM.PN ---
Vitals/I&O/Wt Last Vital Signs Temp 98.2 F 06/29/25 11:06 Pulse 60 06/29/25 11:06 Resp 14 06/29/25 11:06 BP 106/60 06/29/25 11:06 Pulse Ox 100 06/29/25 11:06 O2 Del Method Room Air 06/29/25 11:06 O2 Flow Rate 3 06/29/25 07:26 FiO2 21 06/26/25 23:23 06/29/25 06/29/25 06/29/25 06:59 14:59 22:59 Intake Total 209.5 / 1119.5 100 / 100 Balance 209.5 / -1397.5 100 / 100 Weight last 48 hrs Weight 70.851 kg Weight 73.5 kg Weight 85.275 kg Physical Exam Narrative: Accompanied by her grandson. Const: COMMON NORMALS: patient oriented x3 and alert GENERAL APPEARANCE: cooperative ORIENTATION/CONSCIOUSNESS: Yes awake HENMT: COMMON NORMALS: oropharynx normal OTHER: Right IJ HDC Neck/C-Spine: COMMON NORMALS: no JVD Resp: COMMON NORMALS: normal respiratory effort and clear to auscultation bilaterally AUSCULTATION: clear to auscultation bilaterally Cardio: COMMON NORMALS: no JVD, regular rhythm, S1 normal heart sound present, S2 normal heart sound present and No murmurs present (Cardio) RHYTHM: regular rhythm HEART SOUNDS: S1 normal heart sound present and S2 normal heart sound present GI: COMMON NORMALS: Normal to inspection, nondistended, normoactive bowel sounds present, Soft to palpation and non-tender INSPECTION: Yes abdominal distension PALPATION: Yes Soft to palpation Extremity: COMMON NORMALS: no joint enlargement and no pedal edema NARRATIVE EXTREMITY EXAM: L arm PICC GENERAL: Yes edema (Trace) Neuro: COMMON NORMALS: patient oriented x3 and moves all extremities SENSORIUM/ORIENTATION: Yes alert Skin: COMMON NORMALS: no rashes or lesions noted GENERAL SKIN EXAM: no rashes or lesions noted Urinary Catheter Management: Ferrari: Cath Placed During This Visit: yes Reason for Continuing Indwelling Catheter: Other Urinary Catheter Date of Insertion: 06/22/25 Urinary Catheter Time of Insertion: 11:45 Data 06/28/25 08:47 06/29/25 04:48 A&P Assessment and plan 1. Acute kidney injury superimposed on chronic kidney disease: Received dialysis yesterday, 2 L removed. Discussed with nursing, registered nurse hh case manager, subsequent plans for hemodialysis as per nephrology. Continued arrangements for outpatient dialysis. As per discussion with her and family, plan discharge tomorrow due to difficulties with transportation today. Discussed with short order fry cook. Reviewed chemistry. Intake and output. Reassess blood pressures. Remove PICC line. Preparations for discharge. Still had to be drawn peripherally. Recent. Discussed with short order fry cook, further assessment today to determine whether proceed with additional dialysis versus reassess kidney function for any improvement. Pending nephrology reassessment. Discussed with nursing, registered nurse hh case manager. Reviewed intake and output, chemistry. Continue to monitor urine output. Further discussed with cardiology, however, dopamine or dobutamine currently would be risky to start with concern for worsening of her severe MR, risk of pulm edema. Increased midodrine dose, so far with good response and tolerating medication. In case hemodynamic support was needed, Shaquille-Synephrine could be considered. Not a candidate for MitraClip with concomitant mitral stenosis and worsened overall condition. Plan: Thrush, vulvovaginal candidiasis: Discussed with pharmacy, add Diflucan. Discussed with pharmacist. Ordered with renal dosing. UTI: Completed course with Cipro. DC antibiotic. Possible liver cirrhosis: With nodular contour of the liver suggestive of cirrhosis on review of prior CT. Not aware of past history of cirrhosis appears may be new diagnosis. Prior serology with negative hepatitis panel. Does not drink alcohol. I suspect nonalcoholic fatty liver disease basis. Physical deconditioning: Discussed with PT, will be reevaluated. Per discussion of disposition plans, plans to return home. Poor appetite: Oral intake is tolerating. Nutritional shakes as tolerated. A-fib: Eliquis on hold. Metoprolol. Monitor for risk of hypotension. Resume Eliquis at discharge. Repeat CBC. Disposition: Discussion regarding disposition today with patient's son, grandson who has been present at bedside (nonblood relative), and with the patient. She is agreeable to stay overnight to help arrange transportation as well as per patient expressing to put her family at ease . She expressed that she wants to return home. She feels safe at home and would much rather be there and in her own surroundings and bed on discussion both together with family and individually with just her. Due to difficulties with transportation discharge delayed today pending arrangement for transport home with her grandson having difficulties with his truck tire. PDMP PDMP Reviewed: Not Reviewed Attestations Medical Necessity Statement*: Continue admission for reassessment of renal failure, volume overload in a lady with additional comorbidities as above. Placement of dialysis catheter, arrangement for continued outpatient dialysis. Diagnoses Acute kidney injury superimposed on chronic kidney disease N17.9; N18.9
[2025-06-29] MEDS: ferric gluconate 125 MG in sodium chloride 0.9% (100 ml) 100 ML 110 MG IV (17:02)
--- NOTE | 2025-06-29 17:58 | PC.NURSE ---
plan is d/c pt tomorrow via ems ride. family at bedside today, disgruntled with the idea of a possible d/c today.
[2025-06-29] MEDS: PRAMIPEXOLE 0.5 MG TABLET 1 MG PO (20:53)
[2025-06-29] MEDS: insulin glargine 100 units/1 mL 10 UNIT SUBCUT (21:40)
[2025-06-30] VITALS (9 sets, daily range): BP systolic 89–122; BP diastolic 49–69; PULSE 59–61; RESP 14–24; TEMP 36.2–37.2; O2SAT 95–100
[2025-06-30] MEDS: MIDODRINE HCL 10 MG TABLET PO ×3 (04:22→21:00)
[2025-06-30] MEDS: carbidopa-levodopa 25-100mg Tablet 1 EACH PO ×2 (04:22→17:51)
[2025-06-30] MEDS: lactulose oral liq 20 gm/30 mL UDC 10 GM PO (04:24)
--- NOTE | 2025-06-30 08:00 | P.DS_ITS ---
Discharge Providers Date of Admission: 06/16/25 18:06 Date of Discharge: June 30, 2025 Attending Provider at Admission: Seven Flowers MD Attending Provider at Discharge: Nakul Goetz MD Primary Care Provider: Terence Rogers Diagnoses at Discharge Discharge Diagnosis 1. Acute kidney injury superimposed on chronic kidney disease: Reason for Visit Reason for Visit: Brief History: Vaibhav Ramsey is a 84 year old female with past medical diabetesintermittent atrial fibrillation, permanent pacer implantation, supraventricular tachycardia, essential benign hypertension and congestive heart failure. She also is known to have obstructive sleep apnea Presents with progressive shortness of breath. Worse in the last 3 days. Reports that she is normally on 2 to 3 L of oxygen. States he has a dry cough. No increased leg swelling. Denies chest pain. She does state that she feels congested. The patient does also have history of sleep apnea. Reports she is on bilevel. She also states that she follows with cardiology for her pacemaker. In addition to increased leg swelling and difficulty breathing she also reports that she has had some fatigue. Denies any dark stools. Denies abdominal pain. Or recent change in her medications. Physical Exam Urinary Catheter Management: Ferrari: Cath Placed During This Visit: yes Reason for Continuing Indwelling Catheter: Other Urinary Catheter Date of Insertion: 06/22/25 Urinary Catheter Time of Insertion: 11:45 Discharge Data Studies Completed and Pending Completed Studies During Hospitalization Category Date Time Status CT abdomen pelvis wo con [id number] Stat Cat Scan 06/16/25 16:54 Completed CXRIE [XR chest 2V insp/exp 21699] Routine Exams 06/21/25 10:26 Completed CXRP [XR chest 1V portable [id number]] Routine Exams 06/24/25 12:44 Completed CXRP [XR chest 1V portable [id number]] Stat Exams 06/23/25 11:49 Completed XR abdomen 1V* [id number] Routine Exams 06/17/25 18:32 Completed XR chest 1V [id number] Stat Exams 06/16/25 16:38 Completed CV. echo complete* [id number] Stat Ultrasound 06/17/25 18:35 Completed US renal BI* [id number] Routine Ultrasound 06/21/25 10:31 Completed Pending at discharge Category Date Time Status C-arm FL for CVA [id number] Routine Exams 06/28/25 13:16 Taken CBC Auto Diff [Complete Blood Count w/Auto] AM LABS Lab 07/01/25 04:00 Ordered Pathology: Surgical [PTH] Routine Pth 06/28/25 13:45 Received Radiology Impressions Abdomen/Pelvis CT 06/16/25 16:54 IMPRESSION: 1. Nodular liver capsule contour consistent with early cirrhosis. 2. Trace right upper abdominal perihepatic low-density simple ascites fluid. 3. Post-cholecystectomy biliary system normal. 4. Right para-aortic enlarged 1.3 cm short axis lymph node (series 4, image 31) along with shotty subcentimeter aortocaval lymph nodes. 5. Mild mesenteric adenitis nonspecific; often postinfectious or reactive. 6. Uncomplicated distal colonic diverticulosis. 7. Posterior/dependent superficial soft tissue edema; suspicious for anasarca. 8. Advanced age-appropriate degenerative spinal changes, with other chronic/non-acute findings as described above. 9. Severe scattered vascular calcifications, with greatest calcification involving the aorta and splenic artery and left renal artery. 10. Small volume intraluminal bladder gas, most likely post-instrumentation. If no recent instrumentation, consider infection with gas-forming organisms. 11. Lung interstitial reticular thickening, likely chronic, without focal alveolar consolidation. Nonspecific; most consistent with chronic fibrotic interstitial change, age-related/nonspecific. Recommend correlation with clinical history; pulmonary function tests if clinically indicated. COMMENTS: 1. Consider repeat with IV contrast if clinically warranted. 2. Bowel evaluation limited; repeat with oral contrast if clinically warranted. Abdomen X-Ray 06/17/25 18:32 IMPRESSION: No definite acute findings. Renal Ultrasound 06/21/25 10:31 IMPRESSION: 1. No acute findings. No renal stones or obstruction. 2. Both kidneys demonstrate generalized increased echogenicity compatible with nonspecific chronic renal disease. 3. Generalized intra-abdominal ascites. Chest X-Ray 06/24/25 12:44 IMPRESSION: Satisfactory position of the right-sided PICC line. Laboratory Results WBC 12.39 10^3/uL (3.29-11.43) H 06/28/25 08:47 RBC 4.11 10^6/uL (3.85-5.65) 06/28/25 08:47 Hgb 12.20 g/dL (11.27-16.99) 06/28/25 08:47 Hct 39.2 % (36-47) 06/28/25 08:47 MCV 95.4 fl (85-98) 06/28/25 08:47 MCH 29.7 pg (27-33) 06/28/25 08:47 MCHC 31.1 g/dL (30-55) 06/28/25 08:47 RDW 19.4 % (12.1-15.1) H 06/28/25 08:47 Plt Count 99 10^3/cmm (157-399) L 06/28/25 08:47 MPV Not Reportable 06/28/25 08:47 Neut % (Auto) 82.8 % 06/28/25 08:47 Lymph % (Auto) 6.3 % 06/28/25 08:47 Pitkin % (Auto) 9.1 % 06/28/25 08:47 Eos % (Auto) 0.2 % 06/28/25 08:47 Baso % (Auto) 0.1 % 06/28/25 08:47 Neut # (Auto) 10.25 10^3/uL (1.8-7.7) H 06/28/25 08:47 Lymph # (Auto) 0.8 10^3/uL (0.8-4.8) 06/28/25 08:47 Pitkin # (Auto) 1.1 10^3/uL (0.2-0.9) H 06/28/25 08:47 Eos # (Auto) 0.0 10^3/uL (0.0-0.8) 06/28/25 08:47 Baso # (Auto) 0.0 10^3/uL (0.0-0.1) 06/28/25 08:47 Nucleated RBC % (auto) 0.4 % 06/28/25 08:47 Nucleated RBCs # 0.1 /100WBC 06/28/25 08:47 Sodium 136 mmol/L (136-145) 06/29/25 04:48 Potassium 4.3 mmol/L (3.5-5.1) 06/29/25 04:48 Chloride 96 mmol/L (98-107) L 06/29/25 04:48 Carbon Dioxide 26 mmol/L (22-29) 06/29/25 04:48 Anion Gap 18.3 (5-19) 06/29/25 04:48 BUN 45 mg/dL (8-23) H 06/29/25 04:48 Creatinine 4.3 mg/dL (0.5-0.9) H 06/29/25 04:48 GFR Calculation Not Reportable 06/29/25 04:48 Glucose 111 mg/dL (65-115) 06/29/25 04:48 POC Glucose 152 mg/dL (70-110) H 06/30/25 06:34 Calculated Osmolality 294 mOsm/kg (285-295) 06/29/25 04:48 Uric Acid 3.5 mg/dL (2.4-5.7) 06/21/25 11:20 Calcium 8.4 mg/dL (8.5-10.5) L 06/29/25 04:48 Phosphorus 6.2 mg/dL (2.5-4.5) H 06/27/25 06:23 Magnesium 2.5 mg/dL (1.7-2.3) H 06/27/25 06:23 Iron 21 ug/dL (37-145) L 06/22/25 03:12 TIBC 248 mcg/dl 06/22/25 03:12 % Saturation 8.4 % (20-50) L 06/22/25 03:12 Unsat Iron Binding 227 ug/dL (112-347) 06/22/25 03:12 Ferritin 173 ng/mL (15-150) H 06/22/25 03:12 Total Bilirubin 1.5 mg/dL (0.15-1.2) H 06/29/25 04:48 AST 58 U/L (0-32) H 06/29/25 04:48 ALT 15 U/L (0-33) 06/29/25 04:48 Alkaline Phosphatase 243 U/L (35-105) H 06/29/25 04:48 Creatine Kinase 236 U/L (26-192) H 06/21/25 11:20 Troponin T Baseline 69 ng/L (0-10) H 06/16/25 17:04 Troponin T 120 Minute 68.81 ng/L (0-10) H 06/16/25 19:22 Delta Troponin T -0.19 ABS# (0-10) L 06/16/25 19:22 Troponin T Hi Sens 6Hr 68.77 ng/L (0-10) H 06/16/25 23:04 Troponin T Hi Sens 6Hr Delta -0.23 ng/L (0-12) L 06/16/25 23:04 C-Reactive Protein 11.8 mg/L (0.0-4.9) H 06/16/25 17:04 NT-Pro-B Natriuret Pep 7456 pg/mL (0-450) H 06/16/25 17:04 Total Protein 5.2 g/dL (6.6-8.7) L 06/29/25 04:48 Albumin 3.3 g/dL (3.5-5.2) L 06/29/25 04:48 Globulin 1.9 g/dL (1.3-4.6) 06/29/25 04:48 Lipase 32 U/L (13-60) 06/17/25 03:46 25-OH Vitamin D Total 18 ng/mL (30-100) L 06/22/25 03:12 1,25 Dihydroxy Vit D2 <8 pg/mL 06/21/25 11:20 1,25 Dihydroxy Vit D3 <8 pg/mL 06/21/25 11:20 TSH 8.04 uIU/mL (0.27-4.20) H 06/22/25 03:12 Random Cortisol 19.79 ug/dL (2.47-19.5) H 06/22/25 03:12 Urine Color Dark yellow (Yellow) A 06/21/25 16:15 Urine Appearance Turbid (CLEAR) A 06/21/25 16:15 Urine pH 5.0 (5-7) 06/21/25 16:15 Ur Specific Dawson 1.021 (1.005-1.030) 06/21/25 16:15 Urine Protein 3+ (Negative) A 06/21/25 16:15 Urine Glucose (UA) Negative (Normal) 06/21/25 16:15 Urine Ketones 1+ (Negative) H 06/21/25 16:15 Urine Blood 3+ (Negative) A 06/21/25 16:15 Urine Nitrate Negative (Negative) 06/21/25 16:15 Urine Bilirubin 2+ (Negative) H 06/21/25 16:15 Urine Urobilinogen 1.0 mg/dL (Negative) 06/21/25 16:15 Ur Leukocyte Esterase 3+ (Negative) A 06/21/25 16:15 Urine RBC 3-5 /hpf (0-2) 06/21/25 16:15 Urine WBC >100 /hpf (0-5) H 06/21/25 16:15 Ur Squamous Epith Cells 6-10 /hpf (0-5) 06/21/25 16:15 Calcium Oxalate Crystal Rare /hpf 06/18/25 05:06 Amorphous Sediment Not Reportable 06/21/25 16:15 Urine Bacteria 4+ /hpf (NONE) H 06/21/25 16:15 Hyaline Casts 105.32 /lpf 06/21/25 16:15 Ur Random Sodium 48 mmol/L 06/21/25 11:45 Ur Random Potassium 39 mmol/L 06/21/25 11:45 Ur Random Chloride 33 mmol/L 06/21/25 11:45 FOSTER Screen Negative (NEGATIVE) 06/21/25 11:20 ANCA Screen Negative (NEGATIVE) 06/21/25 11:20 ANCA Titer Not Reportable 06/21/25 11:20 Anti-ds DNA IgG Ab <1 IU/mL 06/21/25 11:20 Glomerular Base Mem IgG <1.0 AI 06/21/25 11:20 Complement C3 124 mg/dL (90-180) 06/21/25 11:20 Complement C4 24 mg/dL (10-40) 06/21/25 11:20 Hep Bs Antigen Non-reactive (Nonreactive) 06/23/25 04:39 Hep Bs Antibody < 3.5 (11.5-1000) L 06/23/25 04:39 Hep B Core Total Ab Non-reactive (Nonreactive) 06/21/25 11:20 Hepatitis C Antibody Non-reactive (Nonreactive) 06/23/25 04:39 Influenza A (PCR) Negative (Negative) 06/16/25 19:28 Influenza Type B (PCR) Negative (Negative) 06/16/25 19:28 RSV (PCR) Negative (Negative) 06/16/25 19:28 SARS-CoV-2 (PCR) Negative (Negative) 06/16/25 19:28 Vitals Last Vital Signs Temp 97.6 F 06/30/25 07:39 Pulse 59 L 06/30/25 07:39 Resp 18 06/30/25 07:39 BP 112/69 06/30/25 07:39 Pulse Ox 99 06/30/25 07:39 O2 Del Method Nasal Cannula 06/30/25 07:39 O2 Flow Rate 3 06/29/25 20:00 FiO2 21 06/26/25 23:23 Discharge Plan Discharge Patient Disposition: Home Health Service Condition: Stable Prescriptions: New bisacodyl 10 mg Suppository 10 mg PA DAILY PRN (Reason: Constipation) Qty: 30 0RF docusate sodium 100 mg Capsule 100 mg PO BID Qty: 180 0RF ferrous sulfate 325 mg (65 mg iron) tablet 325 mg PO EVERY OTHER DAY Qty: 90 0RF fluconazole 200 mg tablet 200 mg PO Q48H 21 Days Qty: 11 0RF metoprolol tartrate 25 mg Tablet 12.5 mg PO BID Qty: 30 0RF Rx Instructions: decrease dose to 12.5 mg BID Continued nitroglycerin 0.4 mg tablet, sublingual 0.4 mg SUBLINGUAL Q5M PRN (Reason: chest pain) 30 Days Qty: 30 3RF Rx Instructions: until response; do not exceed 3 doses per episode (DME) post mastectomy Bras See Rx Instructions .Route .MEDSUPPLY Qty: 4 0RF Rx Instructions: As directed apixaban 2.5 mg tablet 2.5 mg PO BID Qty: 90 3RF oxycodone-acetaminophen 10-325 mg tablet 1 tab PO Q6H PRN (Reason: Pain, Mild) carbidopa-levodopa 25-100 mg tablet 1 tab PO BID pramipexole 0.5 mg tablet 2 mg PO BEDTIME cyanocobalamin (vitamin B-12) 1,000 mcg/mL solution 1,000 mcg IM Q30D Rx Instructions: 15 OF THE allopurinol 300 mg tablet 300 mg PO BID sertraline 100 mg tablet 100 mg PO DAILY Rx Instructions: at bedtime pantoprazole 40 mg tablet,delayed release (DR/EC) 40 mg PO DAILY furosemide [Lasix] 40 mg Tablet 40 mg PO BID Rx Instructions: AM and Lunch isosorbide mononitrate 120 mg Tablet Extended Release 24 Hr 120 mg PO DAILY docusate sodium [Colace] 100 mg Capsule 100 mg PO BID pravastatin 40 mg Tablet 40 mg PO BEDTIME spironolactone 25 mg Tablet 25 mg PO DAILY ondansetron HCl 4 mg Tablet 4 mg PO Q6H PRN (Reason: Nausea) fluticasone propionate 50 mcg/actuation [place],Suspension 2 spray INTRANASAL BEDTIME Rx Instructions: administer into each nostril meclizine 25 mg Tablet 25 mg PO TID PRN (Reason: Dizziness) ascorbic acid (vitamin C) [Vitamin C] 500 mg Tablet 500 mg PO DAILY levothyroxine 100 mcg tablet 100 mcg PO DAILY zinc acetate 25 mg (zinc) Capsule 50 mg PO DAILY Changed insulin glargine [Lantus U-100 Insulin] 100 unit/mL Solution 10 unit SUBCUT BEDTIME Qty: 10 0RF Rx Instructions: Dose change only Discontinued metoprolol tartrate 25 mg tablet 25 mg PO BID baclofen 5 mg tablet 5 mg PO BID PRN (Reason: Spasms) Other Ambulatory Orders: DME: [facility] (Order) Location: None Selected Ordered By: Silverio Dominguez Referrals: [facility] - [Outside] - 07/01/25 1:00 pm Referral Note: You are scheduled for dialysis on , , and @ 1:20pm. However due to the holidays your schedule for next week will be Tuesday and Tuesday @ 1:00pm. They will let you know the final day when you go to your appointment on Tuesday. Moon Antoine NP [Nurse Practitioner, Cardiology] - 4-7 days Referral Note: We have notified your physician's clinic of the need for a follow-up appointment to be scheduled. If you have not heard from them within the next 2 business days, please call them directly. Terence Rogers [Primary Care Provider, Family Practice] - 4-7 days Referral Note: You will need to call your primary care provider Tuesday to make a hospital discharge follow up in 4-7 days. Discharge Diet: As Directed and Diabetic Discharge Activity: Increase activity as tolerated, Use walker/crutches as instructed, As per PT/OT instructions and Oxygen as instructed Patient Instructions: Fluconazole (By mouth), Dialysis Nutrition Plan (GEN), A cute Wound Care (DC), Hemodialysis (GEN), Opioid Safety, Post Anesthesia Care, Patient Portal & Raissa Instructions Activity Restrictions/Additional Instructions: Please follow-up with your primary provider for reassessment of renal function, reassessment of blood counts. Follow-up for reassessment of congestive heart failure, follow-up with primary provider and with cardiology. Continue hemodialysis after discharge. Continue management of constipation, bowel regimen. Maintain kidney dialysis diet, low potassium diet. Follow-up thyroid function. Discharge Attestations Status at Discharge: Cognitive status at discharge: cognitively intact , Behavioral status at discharge: cooperative , Quality Metrics Clinical Quality Measures [ No reported AMI, CVA or VTE this stay] Coding Level of Care Code Acute Code for Chg Fwd Diagnoses Acute kidney injury superimposed on chronic kidney disease N17.9; N18.9
--- NOTE | 2025-06-30 09:35 | PC.NURSE ---
Multiple family members approached the nurses station saying they needed to talk about their mothers discharge. They stated she needed to stay another day. This nurse stated that isn't how things work if the doctor states the patient is ready for discharge. This nurse asked all family members including son, daughter, and grandson to come into the room to talk about discharge plan with Ms. Esposito the patient who is completely alert and oriented. Daughter was very angry that I asked Ms. Esposito twice if she wanted to go home or the prison. The daughter began to yell at me stating her mother has told me twice and you are trying to persuade her differently. I will get an commonwealth attorney if I have too. And Kavon isn't even blood related. You can take a blood test if you want to prove it. This nurse stated to daughter I am not trying to persuade your mother to do anything. We work on discharge planning from the beginning of admission and your mother has stated this entire time she wants to go home. I am trying to understand what has changed in the last few hours. At this time roxy enters the room and states to his mother you need to calm down. The nurse is doing what she has to do. She has to ask grandma what she wants. At this time roxy gives me information on the facility he wants her to go to [facility] in [place]. At this time Vaibhav agrees to go home today, her dialysis tomorrow, and arrange placement outpatient. Roxy proceeds to calm his mother down.
--- NOTE | 2025-06-30 11:24 | P.PN_ITS ---
Subjective 2 Subjective: No acute events overnight Vitals/I&O/Wt Last Vital Signs Temp 97.2 F L 06/30/25 11:22 Pulse 60 06/30/25 11:22 Resp 14 06/30/25 11:22 BP 112/69 06/30/25 07:39 Pulse Ox 99 06/30/25 11:22 O2 Del Method Nasal Cannula 06/30/25 11:22 O2 Flow Rate 3 06/29/25 20:00 FiO2 21 06/26/25 23:23 06/29/25 06/30/25 06/30/25 22:59 06:59 14:59 Intake Total 350 / 450 240 / 240 Output Total 150 / 150 Balance 350 / 450 -150 / 300 240 / 240 Weight last 48 hrs Weight 161 lb 9.6 oz Weight 156 lb 3.2 oz Weight 162 lb 0.636 oz Physical Exam 2 Narrative: Chest: Unlabored breathing room air. Tunneled dialysis catheter working Heart: Regular rate and rhythm. Abdomen: Soft, nontender, nondistended. No masses or lymphadenopathy. Urinary Catheter Management: Ferrari: Cath Placed During This Visit: yes Reason for Continuing Indwelling Catheter: Other Urinary Catheter Date of Insertion: 06/22/25 Urinary Catheter Time of Insertion: 11:45 Data 07/01/25 05:41 07/01/25 09:13 A&P Assessment and plan 1. Acute kidney injury superimposed on chronic kidney disease: Plan: 84-year-old female status post tunneled dialysis catheter insertion. Catheter functional. Rest of care per hospitalist. PDMP PDMP Reviewed: Not Reviewed Attestations 2 Medical Necessity Statement*: N/A Coding Level of Care Code Acute Code for g Fwd Diagnoses Acute kidney injury superimposed on chronic kidney disease N17.9; N18.9
[2025-06-30] MEDS: ondansetron 2 mg/ML SDV 2 mL 4 MG IVP ×2 (12:54→18:27)
--- NOTE | 2025-06-30 20:19 | P.PN_ITS ---
Subjective 2 Subjective: Patient states that she feels weak, having severe nausea today. Had an episode of vomiting. Not tolerating p.o. intake. Tunneled dialysis catheter in place, plan for dialysis tomorrow, Tuesday. Nephrology following. Vitals/I&O/Wt Last Vital Signs Temp 98.9 F 06/30/25 20:00 Pulse 61 06/30/25 20:00 Resp 24 H 06/30/25 20:00 BP 104/59 06/30/25 20:00 Pulse Ox 100 06/30/25 20:00 O2 Del Method Room Air 06/30/25 15:23 O2 Flow Rate 3 06/29/25 20:00 FiO2 21 06/26/25 23:23 06/30/25 06/30/25 06/30/25 06:59 14:59 22:59 Intake Total 480 / 480 120 / 600 Output Total 150 / 150 Balance -150 / 300 480 / 480 120 / 600 Weight last 48 hrs Weight 73.301 kg Weight 70.851 kg Physical Exam 2 Narrative: Accompanied by her grandson. Const: COMMON NORMALS: patient oriented x3 and alert GENERAL APPEARANCE: c ooperative ORIENTATION/CONSCIOUSNESS: Yes awake HENMT: COMMON NORMALS: oropharynx normal OTHER: Right IJ HDC Neck/C-Spine: COMMON NORMALS: no JVD Resp: COMMON NORMALS: normal respiratory effort and clear to auscultation bilaterally AUSCULTATION: clear to auscultation bilaterally Cardio: COMMON NORMALS: no JVD, regular rhythm, S1 normal heart sound present, S2 normal heart sound present and No murmurs present (Cardio) RHYTHM: regular rhythm HEART SOUNDS: S1 normal heart sound present and S2 normal heart sound present GI: COMMON NORMALS: Normal to inspection, nondistended, normoactive bowel sounds present, Soft to palpation and non-tender INSPECTION: Yes abdominal distension PALPATION: Yes Soft to palpation Extremity: COMMON NORMALS: no joint enlargement and no pedal edema N ARRATIVE EXTREMITY EXAM: L arm PICC GENERAL: Yes edema (Trace) Neuro: COMMON NORMALS: patient oriented x3 and moves all extremities S ENSORIUM/ORIENTATION: Yes alert Skin: COMMON NORMALS: no rashes or lesions noted GENERAL SKIN EXAM: no rashes or lesions noted Urinary Catheter Management: Ferrari: Cath Placed During This Visit: yes Reason for Continuing Indwelling Catheter: Other Urinary Catheter Date of Insertion: 06/22/25 Urinary Catheter Time of Insertion: 11:45 Data 06/28/25 08:47 06/29/25 04:48 A&P Assessment and plan 1. Acute kidney injury superimposed on chronic kidney disease: Discussed with nursing, leather case finisher, subsequent plans for hemodialysis as per nephrology. Continued arrangements for outpatient dialysis. As per discussion with her and family, plan discharge tomorrow due to weakness and vomiting. Also blood pressure is moderately low. Plan for observation on dialysis, see how she tolerates tomorrow. Reviewed chemistry. Intake and output. Reassess blood pressures. Remove PICC line. Preparations for discharge home with family. Family interested in following up in outpatient rehab versus SNF following discharge. Discussed with nursing, leather case finisher. Reviewed intake and output, chemistry. Continue to monitor urine output. Further discussed with cardiology, however, dopamine or dobutamine currently would be risky to start with concern for worsening of her severe MR, risk of pulm edema. Increased midodrine dose, so far with good response and tolerating medication. In case hemodynamic support was needed, Shaquille-Synephrine could be considered. Not a candidate for MitraClip with concomitant mitral stenosis and worsened overall condition. Plan: Thrush, vulvovaginal candidiasis: Continue IV Diflucan. Renally dosed, will switch to p.o. on discharge, for total of 2 weeks. UTI: Completed course with Cipro. DC antibiotic. Possible liver cirrhosis: With nodular contour of the liver suggestive of cirrhosis on review of prior CT. Not aware of past history of cirrhosis appears may be new diagnosis. Prior serology with negative hepatitis panel. Does not drink alcohol. I suspect nonalcoholic fatty liver disease basis. Physical deconditioning: Discussed with PT, will be reevaluated. Per discussion of disposition plans, plans to return home. Poor appetite: Oral intake is tolerating. Nutritional shakes as tolerated. Zofran as needed for vomiting, possibly due to ESRD versus polypharmacy. Optimize medications. A-fib: Eliquis on hold. Metoprolol. Monitor for risk of hypotension. Resume Eliquis at discharge. Repeat CBC. Disposition: Discussion regarding disposition today with patient's son, grandson who has been present at bedside (nonblood relative), and with the patient. She is agreeable to stay overnight to help arrange transportation as well as per patient expressing to put her family at ease . She expressed that she wants to return home. She feels safe at home and would much rather be there and in her own surroundings and bed on discussion both together with family and individually with just her. Son agrees to discharge with patient at home, and plan for the plan for SNF after discharge. PDMP PDMP Reviewed: Not Reviewed Attestations 2 Medical Necessity Statement*: Continue inpatient for poor p.o. intake, debility, mild hypotension prior to dialysis. Consider discharge home depending on tolerance to hemodialysis and p.o. intake. Diagnoses Acute kidney injury superimposed on chronic kidney disease N17.9; N18.9
[2025-06-30] MEDS: fluconazole premix 200 MG/100 ML PREMIX 100 MG IV (20:59)
[2025-06-30] MEDS: insulin glargine 100 units/1 mL 10 UNIT SUBCUT (21:00)
[2025-06-30] MEDS: PRAMIPEXOLE 0.5 MG TABLET 1 MG PO (21:01)
[2025-07-01] VITALS (9 sets, daily range): BP systolic 79–132; BP diastolic 44–64; PULSE 59–65; RESP 16–18; TEMP 35.8–36.8; O2SAT 94–100
[2025-07-01] MEDS: lactulose oral liq 20 gm/30 mL UDC 10 GM PO (04:17)
[2025-07-01] MEDS: MIDODRINE HCL 10 MG TABLET PO ×3 (04:17→20:27)
[2025-07-01] MEDS: carbidopa-levodopa 25-100mg Tablet 1 EACH PO ×2 (04:18→18:21)
[2025-07-01 06:13] LABS: Hematocrit 40.6 % (36-47); Hemoglobin 12.50 g/dL (11.27-16.99); Mean Corpuscular HGB Conc 30.8 g/dL (30-55); Mean Corpuscular Hemoglobin 29.6 pg (27-33); Mean Corpuscular Volume 96.2 fl (85-98); Nucleated Red Blood Cells % 0.1 %; Platelet Count 50 10^3/cmm (157-399); Red Blood Count 4.22 10^6/uL (3.85-5.65); White Blood Count 14.80 10^3/uL (3.29-11.43)
--- NOTE | 2025-07-01 08:46 | P.PN_ITS ---
Vitals/I&O/Wt Last Vital Signs Temp 97.6 F 07/01/25 07:29 Pulse 65 07/01/25 07:29 Resp 18 07/01/25 07:29 BP 90/50 07/01/25 07:29 Pulse Ox 97 07/01/25 07:29 O2 Del Method CPAP 07/01/25 07:29 O2 Flow Rate 3 06/29/25 20:00 FiO2 21 06/26/25 23:23 06/30/25 07/01/25 07/01/25 22:59 06:59 14:59 Intake Total 220 / 700 700 / 1400 Balance 220 / 700 700 / 1400 Weight last 48 hrs Weight 163 lb 14.4 oz Weight 161 lb 9.6 oz Physical Exam 2 Urinary Catheter Management: Ferrari: Cath Placed During This Visit: yes Reason for Continuing Indwelling Catheter: Other Urinary Catheter Date of Insertion: 06/22/25 Urinary Catheter Time of Insertion: 11:45 Data 07/01/25 05:41 06/29/25 04:48 A&P PDMP PDMP Reviewed: Not Reviewed Coding Level of Care Code Acute Code for Chg Fwd
[2025-07-01 10:24] LABS: Alanine Aminotransferase 19 U/L (0-33); Globulin 2.0 g/dL (1.3-4.6); Glucose 91 mg/dL (65-115)
[2025-07-01 11:04] LABS: Potassium 4.9 mmol/L (3.5-5.1); Sodium 136 mmol/L (136-145)
[2025-07-01 11:13] LABS: Chloride 96 mmol/L (98-107)
[2025-07-01 11:14] LABS: Anion Gap 25.9 (5-19); Blood Urea Nitrogen 79 mg/dL (8-23); Calcium 8.1 mg/dL (8.5-10.5); Carbon Dioxide 19 mmol/L (22-29); Magnesium 2.8 mg/dL (1.7-2.3); Osmolality Calculated 305 mOsm/kg (285-295)
[2025-07-01 11:15] LABS: Albumin Level 3.1 g/dL (3.5-5.2); Alkaline Phosphatase 236 U/L (35-105); Aspartate Amino Transferase 95 U/L (0-32); Total Protein 5.1 g/dL (6.6-8.7)
[2025-07-01] MEDS: ondansetron 2 mg/ML SDV 2 mL 4 MG IVP ×2 (11:56→20:23)
[2025-07-01] MEDS: heparin, porcine 1,000 unit/mL INJ 10 mL 10000 UNIT INTRACATH (12:10)
[2025-07-01] MEDS: heparin, porcine 1,000 unit/mL INJ 10 mL 10000 UNIT HE (12:10)
--- NOTE | 2025-07-01 12:53 | PC.NURSE ---
Patient in dialysis. Dialysis nurse ask to give patient lunch and renvela after dialysis.
--- NOTE | 2025-07-01 15:11 | P.PN_ITS ---
<Statement entered by Uziel Ramos M.D - 07/07/25 11:02> Patient was cared for in conjunction with an advanced practice practitioner.? I reviewed the chart and all pertinent data including imaging, telemetry, and laboratory results.? I discussed the patient in detail with the advanced practice practitioner.? Please see? their documentation for progress note, testing results and agreed upon plan of care for the patient. Subjective 2 Subjective: Patient in no acute distress today. She is getting dialysis. She is pending discharge home depending on how she does with dialysis and p.o. intake. Vitals/I&O/Wt Last Vital Signs Temp 96.4 F L 07/01/25 13:08 Pulse 62 07/01/25 13:08 Resp 18 07/01/25 13:08 BP 114/63 07/01/25 13:08 Pulse Ox 94 07/01/25 11:04 O2 Del Method Room Air 07/01/25 11:04 O2 Flow Rate 3 07/01/25 08:00 FiO2 21 06/26/25 23:23 07/01/25 07/01/25 07/01/25 06:59 14:59 22:59 Intake Total 700 / 1400 120 / 120 Balance 700 / 1400 120 / 120 Weight last 48 hrs Weight 163 lb 14.4 oz Weight 161 lb 9.6 oz Physical Exam 2 Narrative: General: No apparent distress Muskuloskeletal: Full ROM Respiratory: Normal respiratory effort, right clear, bilateral posterior lobes clear Cardio: No JVD, regular rate, regular rhythm, S1 S2 normal, grade II/ murmur mitral space, peripheral pulses 2+ radial palpated bilaterally GI: Normal to inspection, nondistended Extremities: Full ROM, normal, normal capillary refill, no cyanosis, 1+ nonpitting edema bilateral lower extremities Neuro: Alert and oriented x4, no focal motor deficits Psych: Affect normal, denies suicidal ideation, mental status grossly normal Skin: No rashes or lesions noted, no wounds Urinary Catheter Management: Ferrari: Cath Placed During This Visit: yes Reason for Continuing Indwelling Catheter: Other Urinary Catheter Date of Insertion: 06/22/25 Urinary Catheter Time of Insertion: 11:45 Data 07/01/25 05:41 07/01/25 09:13 A&P Assessment and plan 1. Elevated troponin: 2. Intermittent atrial fibrillation: 3. Acute kidney injury superimposed on chronic kidney disease: 4. Hypotension: 5. Presence of permanent cardiac pacemaker: 6. Severe mitral valve regurgitation: 7. Acute on chronic heart failure with preserved ejection fraction: Plan: Patient on Dialysis. Now has permanent catheter. Echo was reviewed by Dr. Ramos. Reported patient would not be a candidate for mitraclip due to presence of heavy calcification on the valve as well as stenosis to the area. Continue medical management for now. Fluid removial via dialysis Tuesday. Patient had bright red blood per rectum. Eliquis is on hold for now. Restart as soon as deemed ok by primary. PDMP PDMP Reviewed: Not Reviewed Attestations 2 Medical Necessity Statement*: Deferred to primary Coding Level of Care Code Acute Code for Chg Fwd Diagnoses Elevated troponin R79.89 Intermittent atrial fibrillation I48.0 Acute kidney injury superimposed on chronic kidney disease N17.9; N18.9 Hypotension I95.9 Presence of permanent cardiac pacemaker Z95.0 Severe mitral valve regurgitation I34.0 Acute on chronic heart failure with preserved ejection fraction I50.33
--- NOTE | 2025-07-01 18:52 | P.PN_ITS ---
Subjective 2 Subjective: Patient is much more energy today, to tolerate dialysis well today. Change in plans with care coordination, patient is now seeking authorization for senior care facility, which is probably safer. Vitals/I&O/Wt Last Vital Signs Temp 98.0 F 07/01/25 15:57 Pulse 60 07/01/25 18:20 Resp 16 07/01/25 15:57 BP 103/64 07/01/25 18:20 Pulse Ox 97 07/01/25 15:57 O2 Del Method Room Air 07/01/25 15:57 O2 Flow Rate 3 07/01/25 08:00 FiO2 21 06/26/25 23:23 07/01/25 07/01/25 07/01/25 06:59 14:59 22:59 Intake Total 700 / 1400 240 / 240 100 / 340 Balance 700 / 1400 240 / 240 100 / 340 Weight last 48 hrs Weight 74.344 kg Weight 73.301 kg Physical Exam 2 Narrative: General: No apparent distress Muskuloskeletal: Full ROM Respiratory: Normal respiratory effort, right clear, bilateral posterior lobes clear Cardio: No JVD, regular rate, regular rhythm, S1 S2 normal, grade II/ murmur mitral space, peripheral pulses 2+ radial palpated bilaterally GI: Normal to inspection, nondistended Extremities: Full ROM, normal, normal capillary refill, no cyanosis, 1+ nonpitting edema bilateral lower extremities Neuro: Alert and oriented x4, no focal motor deficits Psych: Affect normal, denies suicidal ideation, mental status grossly normal Skin: No rashes or lesions noted, no wounds Urinary Catheter Management: Ferrari: Cath Placed During This Visit: yes Reason for Continuing Indwelling Catheter: Other Urinary Catheter Date of Insertion: 06/22/25 Urinary Catheter Time of Insertion: 11:45 Data 07/01/25 05:41 07/01/25 09:13 A&P Assessment and plan 1. Acute kidney injury superimposed on chronic kidney disease: Discussed with nursing, case finisher, subsequent plans for hemodialysis as per nephrology. Continued arrangements for outpatient dialysis. As per discussion with her and family, plan discharge tomorrow due to weakness and vomiting. Also blood pressure is moderately low. Plan for observation on dialysis, see how she tolerates tomorrow. Reviewed chemistry. Intake and output. Reassess blood pressures. Remove PICC line. Preparations for discharge home with family. Family interested in following up in outpatient rehab versus SNF following discharge. Discussed with nursing, case finisher. Reviewed intake and output, chemistry. Continue to monitor urine output. Further discussed with cardiology, however, dopamine or dobutamine currently would be risky to start with concern for worsening of her severe MR, risk of pulm edema. Increased midodrine dose, so far with good response and tolerating medication. In case hemodynamic support was needed, Shaquille-Synephrine could be considered. Not a candidate for MitraClip with concomitant mitral stenosis and worsened overall condition. Plan: Thrush, vulvovaginal candidiasis: Continue IV Diflucan. Renally dosed, will switch to p.o. on discharge, for total of 2 weeks. UTI: Completed course with Cipro. DC antibiotic. Possible liver cirrhosis: With nodular contour of the liver suggestive of cirrhosis on review of prior CT. Not aware of past history of cirrhosis appears may be new diagnosis. Prior serology with negative hepatitis panel. Does not drink alcohol. I suspect nonalcoholic fatty liver disease basis. Physical deconditioning: Discussed with PT, will be reevaluated. Per discussion of disposition plans, plans to return home. Poor appetite: Oral intake is tolerating. Nutritional shakes as tolerated. Zofran as needed for vomiting, possibly due to ESRD versus polypharmacy. Optimize medications. A-fib: Eliquis on hold. Metoprolol. Monitor for risk of hypotension. Resume Eliquis at discharge. Repeat CBC. Disposition: Discussion regarding disposition today with patient's son, grandson who has been present at bedside (nonblood relative), and with the patient. She is agreeable to stay overnight to help arrange transportation as well as per patient expressing to put her family at ease . She expressed that she wants to return home. She feels safe at home and would much rather be there and in her own surroundings and bed on discussion both together with family and individually with just her. Son agrees to discharge with patient at home, and plan for the plan for SNF after discharge. PDMP PDMP Reviewed: Not Reviewed Attestations 2 Medical Necessity Statement*: Continue inpatient for poor p.o. intake, debility, mild hypotension. For safe discharge, patient requires placement to senior care facility. Diagnoses Acute kidney injury superimposed on chronic kidney disease N17.9; N18.9
--- NOTE | 2025-07-01 19:22 | PM.PN ---
Subjective Subjective: geting HD Medications: Reviewed: Yes Vitals/I&O/Wt Last Vital Signs Temp 98.0 F 07/01/25 15:57 Pulse 60 07/01/25 18:20 Resp 16 07/01/25 15:57 BP 103/64 07/01/25 18:20 Pulse Ox 97 07/01/25 15:57 O2 Del Method Room Air 07/01/25 15:57 O2 Flow Rate 3 07/01/25 08:00 FiO2 21 06/26/25 23:23 07/01/25 07/01/25 07/01/25 06:59 14:59 22:59 Intake Total 700 / 1400 240 / 240 100 / 340 Balance 700 / 1400 240 / 240 100 / 340 Weight last 48 hrs Weight 74.344 kg Weight 73.301 kg Physical Exam Narrative: Patient is sitting up in bed], vital signs noted. Patient requiring nasal cannula oxygen. HEENT normocephalic atraumatic. Neck is supple. Has a right neck dialysis catheter Lungs still have basal dullness and crackles improved from yesterday Heart has a murmur is regular positive S1-S2. Abdomen is soft, nontender, positive distended with ascites. Extremities -b/l leg 1+ edema Urinary Catheter Management: Ferrari: Cath Placed During This Visit: yes Reason for Continuing Indwelling Catheter: Other Urinary Catheter Date of Insertion: 06/22/25 Urinary Catheter Time of Insertion: 11:45 Data 07/01/25 05:41 07/01/25 09:13 A&P Assessment and plan 1. Acute kidney injury superimposed on chronic kidney disease: 84-year-old lady with baseline creatinine 1.1 mg/dL giving her mild CKD stage IIIa. Patient has heart failure preserved EF, coronary artery disease, intermittent atrial fibrillation, Moderate to severe mitral regurgitation. Patient was admitted with worsening shortness of breath patient was given diuretics. Patient has had hypotension patient has developed acute kidney injury between June 17 and June 18 and it continues with an oliguric renal failure 1. Oliguric acute kidney injury- Patient likely has ATN versus cardiorenal syndrome. -HD started , s/p tunnelled catheter for shirt cleaner HD , HD per [facility] schedule Follow-up serologies are still pending normal complements. 2 CHF: Diastolic heart function, with severe MR from pulmonary hypertension and tricuspid regurgitation 3.vitamin D deficiency, replete 4. Patient has mild anemia appears stable her thrombocytopenia has improved. Iron saturation 8.4% ferritin 173 will give IV iron. Hemoglobin stable status post dialysis, improved 5. Hyponatremia, improved . Patient was seen and examined using A/V equipment. The case was discussed in detail with the patient, her nurse and her son. The patient and family consented to telehealth and to dialysis. Plan: As above. PDMP PDMP Reviewed: Not Reviewed Attestations Medical Necessity Statement*: per anne Coding Level of Care Code Acute Code for Chg Fwd Diagnoses Acute kidney injury superimposed on chronic kidney disease N17.9; N18.9
--- NOTE | 2025-07-01 19:37 | P.PN_ITS ---
Subjective 2 Subjective: no new c/o Medications: Reviewed: Yes Vitals/I&O/Wt Last Vital Signs Temp 98.0 F 07/01/25 15:57 Pulse 60 07/01/25 18:20 Resp 16 07/01/25 15:57 BP 103/64 07/01/25 18:20 Pulse Ox 97 07/01/25 15:57 O2 Del Method Room Air 07/01/25 15:57 O2 Flow Rate 3 07/01/25 08:00 FiO2 21 06/26/25 23:23 07/01/25 07/01/25 07/01/25 06:59 14:59 22:59 Intake Total 700 / 1400 240 / 240 150 / 390 Balance 700 / 1400 240 / 240 150 / 390 Weight last 48 hrs Weight 74.344 kg Weight 73.301 kg Physical Exam 2 Urinary Catheter Management: Ferrari: Cath Placed During This Visit: yes Reason for Continuing Indwelling Catheter: Other Urinary Catheter Date of Insertion: 06/22/25 Urinary Catheter Time of Insertion: 11:45 Data 07/01/25 05:41 07/01/25 09:13 A&P PDMP PDMP Reviewed: Not Reviewed Coding Level of Care Code Acute Code for Chg Fwd
[2025-07-01] MEDS: PRAMIPEXOLE 0.5 MG TABLET 1 MG PO (20:27)
[2025-07-01] MEDS: insulin glargine 100 units/1 mL 10 UNIT SUBCUT (21:29)
[2025-07-02] VITALS (7 sets, daily range): BP systolic 85–138; BP diastolic 56–74; PULSE 59–71; RESP 15–18; TEMP 36.4–36.8; O2SAT 93–97
[2025-07-02] MEDS: ondansetron 2 mg/ML SDV 2 mL 4 MG IVP ×3 (00:27→12:06)
[2025-07-02] MEDS: MIDODRINE HCL 10 MG TABLET PO ×2 (04:59→12:06)
[2025-07-02] MEDS: carbidopa-levodopa 25-100mg Tablet 1 EACH PO ×2 (04:59→17:38)
--- NOTE | 2025-07-02 05:07 | PC.NURSE ---
Pt having several loose bowel movements the past few days. BP is 88/[address] Caban made aware and said to hold metoprolol, lactulose, and suppository per SEP this morning. Physician notification put in. Call light, belongings in reach, bed locked lowest position, SR up x2.
[2025-07-02 06:13] LABS: Hematocrit 39.5 % (36-47); Hemoglobin 12.00 g/dL (11.27-16.99); Mean Corpuscular HGB Conc 30.4 g/dL (30-55); Mean Corpuscular Hemoglobin 29.9 pg (27-33); Mean Corpuscular Volume 98.5 fl (85-98); Nucleated Red Blood Cells % 0.1 %; Platelet Count 62 10^3/cmm (157-399); Red Blood Count 4.01 10^6/uL (3.85-5.65); White Blood Count 14.43 10^3/uL (3.29-11.43)
[2025-07-02 06:30] LABS: Magnesium 2.7 mg/dL (1.7-2.3)
[2025-07-02 06:35] LABS: Alanine Aminotransferase 25 U/L (0-33); Albumin Level 3.3 g/dL (3.5-5.2); Alkaline Phosphatase 228 U/L (35-105); Anion Gap 21.1 (5-19); Aspartate Amino Transferase 104 U/L (0-32); Blood Urea Nitrogen 55 mg/dL (8-23); Calcium 8.2 mg/dL (8.5-10.5); Carbon Dioxide 23 mmol/L (22-29); Chloride 97 mmol/L (98-107); Globulin 1.7 g/dL (1.3-4.6); Glucose 75 mg/dL (65-115); Osmolality Calculated 298 mOsm/kg (285-295); Potassium 4.1 mmol/L (3.5-5.1); Sodium 137 mmol/L (136-145); Total Protein 5.0 g/dL (6.6-8.7)
--- NOTE | 2025-07-02 12:38 | PM.PN ---
Subjective Subjective: no new c/o Medications: Reviewed: Yes Vitals/I&O/Wt Last Vital Signs Temp 98.0 F 07/02/25 11:07 Pulse 60 07/02/25 11:07 Resp 16 07/02/25 11:07 BP 109/65 07/02/25 11:07 Pulse Ox 95 07/02/25 11:07 O2 Del Method Room Air 07/02/25 11:07 O2 Flow Rate 3 07/01/25 20:00 FiO2 21 06/26/25 23:23 07/01/25 07/02/25 07/02/25 22:59 06:59 14:59 Intake Total 150 / 390 440 / 830 120 / 120 Balance 150 / 390 440 / 830 120 / 120 Weight last 48 hrs Weight 74.344 kg Physical Exam Narrative: Patient is sitting up in bed], vital signs noted. Patient requiring nasal cannula oxygen. HEENT normocephalic atraumatic. Neck is supple. Has a right neck dialysis catheter Lungs still have basal dullness and crackles improved from yesterday Heart has a murmur is regular positive S1-S2. Abdomen is soft, nontender, positive distended with ascites. Extremities -b/l leg 1+ edema Urinary Catheter Management: Ferrari: Cath Placed During This Visit: yes Reason for Continuing Indwelling Catheter: Other Urinary Catheter Date of Insertion: 06/22/25 Urinary Catheter Time of Insertion: 11:45 Data 07/02/25 05:41 07/02/25 05:41 A&P Assessment and plan 1. Acute kidney injury superimposed on chronic kidney disease: 84-year-old lady with baseline creatinine 1.1 mg/dL giving her mild CKD stage IIIa. Patient has heart failure preserved EF, coronary artery disease, intermittent atrial fibrillation, Moderate to severe mitral regurgitation. Patient was admitted with worsening shortness of breath patient was given diuretics. Patient has had hypotension patient has developed acute kidney injury between June 17 and June 18 and it continues with an oliguric renal failure 1. Oliguric acute kidney injury- Patient likely has ATN versus cardiorenal syndrome. -HD started , s/p tunnelled catheter for senior care HD , HD per [facility] schedule Follow-up serologies are still pending normal complements. 2 CHF: Diastolic heart function, with severe MR from pulmonary hypertension and tricuspid regurgitation 3.vitamin D deficiency, replete 4. Patient has mild anemia appears stable her thrombocytopenia has improved. Iron saturation 8.4% ferritin 173 will give IV iron. Hemoglobin stable status post dialysis, improved 5. Hyponatremia, improved . Patient was seen and examined using A/V equipment. The case was discussed in detail with the patient, her nurse and her son. The patient and family consented to telehealth and to dialysis. Plan: As above. PDMP PDMP Reviewed: Not Reviewed Attestations Medical Necessity Statement*: per medicine Coding Level of Care Code Acute Code for Chg Fwd Diagnoses Acute kidney injury superimposed on chronic kidney disease N17.9; N18.9
--- NOTE | 2025-07-02 14:11 | PM.DCS ---
Discharge Providers Date of Admission: 06/16/25 18:06 Date of Discharge: July 02, 2025 Attending Provider at Admission: Seven Flowers MD Attending Provider at Discharge: Nakul Goetz MD Primary Care Provider: Terence Rogers Diagnoses at Discharge Discharge Diagnosis 1. 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 She also is known to have obstructive sleep apnea Presents with progressive shortness of breath. Worse in the last 3 days. Reports that she is normally on 2 to 3 L of oxygen. States he has a dry cough. No increased leg swelling. Denies chest pain. She does state that she feels congested. The patient does also have history of sleep apnea. Reports she is on bilevel. She also states that she follows with cardiology for her pacemaker. In addition to increased leg swelling and difficulty breathing she also reports that she has had some fatigue. Denies any dark stools. Denies abdominal pain. Or recent change in her medications. Hospital Course Hospital Course 1. Acute kidney injury superimposed on chronic kidney disease: 84-year-old lady with baseline creatinine 1.1 mg/dL giving her mild CKD stage IIIa. Patient has heart failure preserved EF, coronary artery disease, intermittent atrial fibrillation, Moderate to severe mitral regurgitation. Patient was admitted with worsening shortness of breath patient was given diuretics. Patient has had hypotension patient has developed acute kidney injury between June 17 and June 18 and it continues with an oliguric renal failure 1. Oliguric acute kidney injury- Patient likely has ATN versus cardiorenal syndrome. -HD started , s/p tunnelled catheter for [facility] HD , HD per [facility] schedule Follow-up serologies are still pending normal complements. 2 CHF: Diastolic heart function, with severe MR from pulmonary hypertension and tricuspid regurgitation 3.vitamin D deficiency, replete 4. Patient has mild anemia appears stable her thrombocytopenia has improved. Iron saturation 8.4% ferritin 173 will give IV iron. Hemoglobin stable status post dialysis, improved 5. Hyponatremia, improved On day of discharge, patient was hemodynamically stable. She has some degree of debility requiring physical therapy and custodial placement. Rehab appreciated. Patient has now a permanent tunneled dialysis catheter with new dialysis schedule of Tuesday. Patient can follow-up with cardiology for medication management due to decompensated failure from mitral regurgitation and stenosis, not amenable to surgery due to underlying risk factors. Continue medical management for congestive heart failure, and follow-up with nephrology for dialysis schedule. Electrolytes were normal, blood pressure stabilized, patient discharged in stable condition. Physical Exam Narrative: General: No apparent distress Muskuloskeletal: Full ROM Respiratory: Normal respiratory effort, right clear, bilateral posterior lobes clear Cardio: No JVD, regular rate, regular rhythm, S1 S2 normal, grade II/ murmur mitral space, peripheral pulses 2+ radial palpated bilaterally GI: Normal to inspection, nondistended Extremities: Full ROM, normal, normal capillary refill, no cyanosis, 1+ nonpitting edema bilateral lower extremities Neuro: Alert and oriented x4, no focal motor deficits Psych: Affect normal, denies suicidal ideation, mental status grossly normal Skin: No rashes or lesions noted, no wounds Urinary Catheter Management: Ferrari: Cath Placed During This Visit: yes Reason for Continuing Indwelling Catheter: Other Urinary Catheter Date of Insertion: 06/22/25 Urinary Catheter Time of Insertion: 11:45 Discharge Data Studies Completed and Pending Completed Studies During Hospitalization Category Date Time Status CT abdomen pelvis wo con [id number] Stat Cat Scan 06/16/25 16:54 Completed CXRIE [XR chest 2V insp/exp 17815] Routine Exams 06/21/25 10:26 Completed CXRP [XR chest 1V portable [id number]] Routine Exams 06/24/25 12:44 Completed CXRP [XR chest 1V portable [id number]] Stat Exams 06/23/25 11:49 Completed XR abdomen 1V* [id number] Routine Exams 06/17/25 18:32 Completed XR chest 1V [id number] Stat Exams 06/16/25 16:38 Completed CV. echo complete* [id number] Stat Ultrasound 06/17/25 18:35 Completed US renal BI* [id number] Routine Ultrasound 06/21/25 10:31 Completed Pending at discharge Category Date Time Status Pathology: Surgical [PTH] Routine Pth 06/28/25 13:45 Received Radiology Impressions Abdomen/Pelvis CT 06/16/25 16:54 IMPRESSION: 1. Nodular liver capsule contour consistent with early cirrhosis. 2. Trace right upper abdominal perihepatic low-density simple ascites fluid. 3. Post-cholecystectomy biliary system normal. 4. Right para-aortic enlarged 1.3 cm short axis lymph node (series 4, image 31) along with shotty subcentimeter aortocaval lymph nodes. 5. Mild mesenteric adenitis nonspecific; often postinfectious or reactive. 6. Uncomplicated distal colonic diverticulosis. 7. Posterior/dependent superficial soft tissue edema; suspicious for anasarca. 8. Advanced age-appropriate degenerative spinal changes, with other chronic/non-acute findings as described above. 9. Severe scattered vascular calcifications, with greatest calcification involving the aorta and splenic artery and left renal artery. 10. Small volume intraluminal bladder gas, most likely post-instrumentation. If no recent instrumentation, consider infection with gas-forming organisms. 11. Lung interstitial reticular thickening, likely chronic, without focal alveolar consolidation. Nonspecific; most consistent with chronic fibrotic interstitial change, age-related/nonspecific. Recommend correlation with clinical history; pulmonary function tests if clinically indicated. COMMENTS: 1. Consider repeat with IV contrast if clinically warranted. 2. Bowel evaluation limited; repeat with oral contrast if clinically warranted. Abdomen X-Ray 06/17/25 18:32 IMPRESSION: No definite acute findings. Renal Ultrasound 06/21/25 10:31 IMPRESSION: 1. No acute findings. No renal stones or obstruction. 2. Both kidneys demonstrate generalized increased echogenicity compatible with nonspecific chronic renal disease. 3. Generalized intra-abdominal ascites. Chest X-Ray 06/24/25 12:44 IMPRESSION: Satisfactory position of the right-sided PICC line. C-Arm Fluoroscopy 06/28/25 13:16 Impression: Insertion of right dialysis catheter. Laboratory Results WBC 14.43 10^3/uL (3.29-11.43) H 07/02/25 05:41 RBC 4.01 10^6/uL (3.85-5.65) 07/02/25 05:41 Hgb 12.00 g/dL (11.27-16.99) 07/02/25 05:41 Hct 39.5 % (36-47) 07/02/25 05:41 MCV 98.5 fl (85-98) H 07/02/25 05:41 MCH 29.9 pg (27-33) 07/02/25 05:41 MCHC 30.4 g/dL (30-55) 07/02/25 05:41 RDW 21.7 % (12.1-15.1) H 07/02/25 05:41 Plt Count 62 10^3/cmm (157-399) L 07/02/25 05:41 MPV Not Reportable 07/02/25 05:41 Neut % (Auto) 83.3 % 07/02/25 05:41 Lymph % (Auto) 5.4 % 07/02/25 05:41 [place] % (Auto) 9.7 % 07/02/25 05:41 Eos % (Auto) 0.1 % 07/02/25 05:41 Baso % (Auto) 0.2 % 07/02/25 05:41 Neut # (Auto) 12.02 10^3/uL (1.8-7.7) H 07/02/25 05:41 Lymph # (Auto) 0.8 10^3/uL (0.8-4.8) 07/02/25 05:41 [place] # (Auto) 1.4 10^3/uL (0.2-0.9) H 07/02/25 05:41 Eos # (Auto) 0.0 10^3/uL (0.0-0.8) 07/02/25 05:41 Baso # (Auto) 0.0 10^3/uL (0.0-0.1) 07/02/25 05:41 Nucleated RBC % (auto) 0.1 % 07/02/25 05:41 Nucleated RBCs # 0.0 /100WBC 07/02/25 05:41 Sodium 137 mmol/L (136-145) 07/02/25 05:41 Potassium 4.1 mmol/L (3.5-5.1) 07/02/25 05:41 Chloride 97 mmol/L (98-107) L 07/02/25 05:41 Carbon Dioxide 23 mmol/L (22-29) 07/02/25 05:41 Anion Gap 21.1 (5-19) H 07/02/25 05:41 BUN 55 mg/dL (8-23) H 07/02/25 05:41 Creatinine 5.0 mg/dL (0.5-0.9) H 07/02/25 05:41 GFR Calculation Not Reportable 07/02/25 05:41 Glucose 75 mg/dL (65-115) 07/02/25 05:41 POC Glucose 117 mg/dL (70-110) H 07/02/25 11:20 Calculated Osmolality 298 mOsm/kg (285-295) H 07/02/25 05:41 Uric Acid 3.5 mg/dL (2.4-5.7) 06/21/25 11:20 Calcium 8.2 mg/dL (8.5-10.5) L 07/02/25 05:41 Phosphorus 6.4 mg/dL (2.5-4.5) H 07/02/25 05:41 Magnesium 2.7 mg/dL (1.7-2.3) H 07/02/25 05:41 Iron 21 ug/dL (37-145) L 06/22/25 03:12 TIBC 248 mcg/dl 06/22/25 03:12 % Saturation 8.4 % (20-50) L 06/22/25 03:12 Unsat Iron Binding 227 ug/dL (112-347) 06/22/25 03:12 Ferritin 173 ng/mL (15-150) H 06/22/25 03:12 Total Bilirubin 2.1 mg/dL (0.15-1.2) H 07/02/25 05:41 AST 104 U/L (0-32) H 07/02/25 05:41 ALT 25 U/L (0-33) 07/02/25 05:41 Alkaline Phosphatase 228 U/L (35-105) H 07/02/25 05:41 Creatine Kinase 236 U/L (26-192) H 06/21/25 11:20 Troponin T Baseline 69 ng/L (0-10) H 06/16/25 17:04 Troponin T 120 Minute 68.81 ng/L (0-10) H 06/16/25 19:22 Delta Troponin T -0.19 ABS# (0-10) L 06/16/25 19:22 Troponin T Hi Sens 6Hr 68.77 ng/L (0-10) H 06/16/25 23:04 Troponin T Hi Sens 6Hr Delta -0.23 ng/L (0-12) L 06/16/25 23:04 C-Reactive Protein 11.8 mg/L (0.0-4.9) H 06/16/25 17:04 NT-Pro-B Natriuret Pep 7456 pg/mL (0-450) H 06/16/25 17:04 Total Protein 5.0 g/dL (6.6-8.7) L 07/02/25 05:41 Albumin 3.3 g/dL (3.5-5.2) L 07/02/25 05:41 Globulin 1.7 g/dL (1.3-4.6) 07/02/25 05:41 Lipase 32 U/L (13-60) 06/17/25 03:46 25-OH Vitamin D Total 18 ng/mL (30-100) L 06/22/25 03:12 1,25 Dihydroxy Vit D2 <8 pg/mL 06/21/25 11:20 1,25 Dihydroxy Vit D3 <8 pg/mL 06/21/25 11:20 TSH 8.04 uIU/mL (0.27-4.20) H 06/22/25 03:12 Random Cortisol 19.79 ug/dL (2.47-19.5) H 06/22/25 03:12 Urine Color Dark yellow (Yellow) A 06/21/25 16:15 Urine Appearance Turbid (CLEAR) A 06/21/25 16:15 Urine pH 5.0 (5-7) 06/21/25 16:15 Ur Specific [place] 1.021 (1.005-1.030) 06/21/25 16:15 Urine Protein 3+ (Negative) A 06/21/25 16:15 Urine Glucose (UA) Negative (Normal) 06/21/25 16:15 Urine Ketones 1+ (Negative) H 06/21/25 16:15 Urine Blood 3+ (Negative) A 06/21/25 16:15 Urine Nitrate Negative (Negative) 06/21/25 16:15 Urine Bilirubin 2+ (Negative) H 06/21/25 16:15 Urine Urobilinogen 1.0 mg/dL (Negative) 06/21/25 16:15 Ur Leukocyte Esterase 3+ (Negative) A 06/21/25 16:15 Urine RBC 3-5 /hpf (0-2) 06/21/25 16:15 Urine WBC >100 /hpf (0-5) H 06/21/25 16:15 Ur Squamous Epith Cells 6-10 /hpf (0-5) 06/21/25 16:15 Calcium Oxalate Crystal Rare /hpf 06/18/25 05:06 Amorphous Sediment Not Reportable 06/21/25 16:15 Urine Bacteria 4+ /hpf (NONE) H 06/21/25 16:15 Hyaline Casts 105.32 /lpf 06/21/25 16:15 Ur Random Sodium 48 mmol/L 06/21/25 11:45 Ur Random Potassium 39 mmol/L 06/21/25 11:45 Ur Random Chloride 33 mmol/L 06/21/25 11:45 FOSTER Screen Negative (NEGATIVE) 06/21/25 11:20 ANCA Screen Negative (NEGATIVE) 06/21/25 11:20 ANCA Titer Not Reportable 06/21/25 11:20 Anti-ds DNA IgG Ab <1 IU/mL 06/21/25 11:20 Glomerular Base Mem IgG <1.0 AI 06/21/25 11:20 Complement C3 124 mg/dL (90-180) 06/21/25 11:20 Complement C4 24 mg/dL (10-40) 06/21/25 11:20 Hep Bs Antigen Non-reactive (Nonreactive) 06/23/25 04:39 Hep Bs Antibody < 3.5 (11.5-1000) L 06/23/25 04:39 Hep B Core Total Ab Non-reactive (Nonreactive) 06/21/25 11:20 Hepatitis C Antibody Non-reactive (Nonreactive) 06/23/25 04:39 Influenza A (PCR) Negative (Negative) 06/16/25 19:28 Influenza Type B (PCR) Negative (Negative) 06/16/25 19:28 RSV (PCR) Negative (Negative) 06/16/25 19:28 SARS-CoV-2 (PCR) Negative (Negative) 06/16/25 19:28 Vitals Last Vital Signs Temp 98.0 F 07/02/25 11:07 Pulse 60 07/02/25 11:07 Resp 16 07/02/25 11:07 BP 109/65 07/02/25 11:07 Pulse Ox 95 07/02/25 11:07 O2 Del Method Room Air 12/23/25 11:07 O2 Flow Rate 3 07/01/25 20:00 FiO2 21 06/26/25 23:23 Discharge Plan Discharge Patient Disposition: Xfer SNF Condition: Stable Prescriptions: New bisacodyl 10 mg Suppository 10 mg MO DAILY PRN (Reason: Constipation) Qty: 30 0RF docusate sodium 100 mg Capsule 100 mg PO BID Qty: 180 0RF ferrous sulfate 325 mg (65 mg iron) tablet 325 mg PO EVERY OTHER DAY Qty: 90 0RF fluconazole 200 mg tablet 200 mg PO Q48H 21 Days Qty: 11 0RF metoprolol tartrate 25 mg Tablet 12.5 mg PO BID Qty: 30 0RF Rx Instructions: decrease dose to 12.5 mg BID Continued nitroglycerin 0.4 mg tablet, sublingual 0.4 mg SUBLINGUAL Q5M PRN (Reason: chest pain) 30 Days Qty: 30 3RF Rx Instructions: until response; do not exceed 3 doses per episode (DME) post mastectomy [place] See Rx Instructions .Route .MEDSUPPLY Qty: 4 0RF Rx Instructions: As directed apixaban 2.5 mg tablet 2.5 mg PO BID Qty: 90 3RF oxycodone-acetaminophen 10-325 mg tablet 1 tab PO Q6H PRN (Reason: Pain, Mild) carbidopa-levodopa 25-100 mg tablet 1 tab PO BID pramipexole 0.5 mg tablet 2 mg PO BEDTIME cyanocobalamin (vitamin B-12) 1,000 mcg/mL solution 1,000 mcg IM Q30D Rx Instructions: OF THE allopurinol 300 mg tablet 300 mg PO BID sertraline 100 mg tablet 100 mg PO DAILY Rx Instructions: at bedtime pantoprazole 40 mg tablet,delayed release (DR/EC) 40 mg PO DAILY furosemide [Lasix] 40 mg Tablet 40 mg PO BID Rx Instructions: AM and Lunch isosorbide mononitrate 120 mg Tablet Extended Release 24 Hr 120 mg PO DAILY docusate sodium [Colace] 100 mg Capsule 100 mg PO BID pravastatin 40 mg Tablet 40 mg PO BEDTIME spironolactone 25 mg Tablet 25 mg PO DAILY ondansetron HCl 4 mg Tablet 4 mg PO Q6H PRN (Reason: Nausea) fluticasone propionate 50 mcg/actuation [place],Suspension 2 spray INTRANASAL BEDTIME Rx Instructions: administer into each nostril meclizine 25 mg Tablet 25 mg PO TID PRN (Reason: Dizziness) ascorbic acid (vitamin C) [Vitamin C] 500 mg Tablet 500 mg PO DAILY levothyroxine 100 mcg tablet 100 mcg PO DAILY zinc acetate 25 mg (zinc) Capsule 50 mg PO DAILY Changed insulin glargine [Lantus U-100 Insulin] 100 unit/mL Solution 10 unit SUBCUT BEDTIME Qty: 10 0RF Rx Instructions: Dose change only Discontinued metoprolol tartrate 25 mg tablet 25 mg PO BID baclofen 5 mg tablet 5 mg PO BID PRN (Reason: Spasms) 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 However due to the holidays your schedule for next week will be Tuesday and Tuesday @ 1:00pm. They will let you know the final day when you go to your appointment on Tuesday. Moon Antoine NP [Nurse Practitioner, Cardiology] - 4-7 days Referral Note: We have notified your physician's clinic of the need for a follow-up appointment to be scheduled. If you have not heard from them within the next 2 business days, please call them directly. Terence Rogers [Primary Care Provider, Family Practice] - 4-7 days Referral Note: You will need to call your primary care provider Tuesday to make a hospital discharge follow up in 4-7 days. Discharge Diet: As Directed and Diabetic Discharge Activity: Increase activity as tolerated, Use walker/crutches as instructed, As per PT/OT instructions and Oxygen as instructed Patient Instructions: Fluconazole (By mouth), Dialysis Nutrition Plan (GEN), Acute Wound Care (DC), Hemodialysis (GEN), Opioid Safety, Post Anesthesia Care Activity Restrictions/Additional Instructions: Please follow-up with your primary provider for reassessment of renal function, reassessment of blood counts. Follow-up for reassessment of congestive heart failure, follow-up with primary provider and with cardiology. Continue hemodialysis after discharge. Continue management of constipation, bowel regimen. Maintain kidney dialysis diet, low potassium diet. Follow-up thyroid function. Discharge Attestations Time Spent in Discharge Care*: greater than 30 min Status at Discharge: Cognitive status at discharge: cognitively intact, Behavioral status at discharge: cooperative, Quality Metrics Clinical Quality Measures [ No reported AMI, CVA or VTE this stay] Coding Level of Care Code 97081 Diagnoses Acute kidney injury superimposed on chronic kidney disease N17.9; N18.9
== END 2025-07-02 18:40 | disposition skilled nursing facility (03) | DRG 291 ==
LOC: ER 18:09 → MEDSURG 19:23
PROVIDERS: Internal Medicine; Internal Medicine Cardiovascular Disease; Internal Medicine Nephrology; Student in an Organized Health Care Education/Training Program; Admitting Provider Family Medicine; Emergency Provider Nurse Practitioner; PCP Family Medicine; Visit Provider Internal Medicine
PROC: 0JH63XZ Insertion of Tunneled Vascular Access Device into Chest Subcutaneous Tissue and Fascia, Percutaneous Approach (ICD-10-PCS; principal; 2025-06-28 13:05)
DX: I13.0 Hypertensive heart and chronic kidney disease with heart failure and stage 1 through stage 4 chronic kidney disease, or unspecified chronic kidney disease (principal); I50.33 Acute on chronic diastolic (congestive) heart failure; J96.12 Chronic respiratory failure with hypercapnia; J96.11 Chronic respiratory failure with hypoxia; J44.1 Chronic obstructive pulmonary disease with (acute) exacerbation; N17.9 Acute kidney failure, unspecified; E87.1 Hypo-osmolality and hyponatremia; K62.5 Hemorrhage of anus and rectum; N39.0 Urinary tract infection, site not specified; E03.9 Hypothyroidism, unspecified; D63.1 Anemia in chronic kidney disease; Z66 Do not resuscitate; I48.0 Paroxysmal atrial fibrillation; K21.9 Gastro-esophageal reflux disease without esophagitis; E87.5 Hyperkalemia; I95.9 Hypotension, unspecified; R79.89 Other specified abnormal findings of blood chemistry; E66.9 Obesity, unspecified; E11.22 Type 2 diabetes mellitus with diabetic chronic kidney disease; D50.9 Iron deficiency anemia, unspecified; I27.20 Pulmonary hypertension, unspecified; I08.3 Combined rheumatic disorders of mitral, aortic and tricuspid valves; D69.6 Thrombocytopenia, unspecified; G47.33 Obstructive sleep apnea (adult) (pediatric); R33.9 Retention of urine, unspecified; B96.20 Unspecified Escherichia coli [E. coli] as the cause of diseases classified elsewhere; B96.1 Klebsiella pneumoniae [K. pneumoniae] as the cause of diseases classified elsewhere; R11.2 Nausea with vomiting, unspecified; N18.31 Chronic kidney disease, stage 3a; E55.9 Vitamin D deficiency, unspecified; B37.9 Candidiasis, unspecified; I25.10 Atherosclerotic heart disease of native coronary artery without angina pectoris; K74.60 Unspecified cirrhosis of liver; B37.31 Acute candidiasis of vulva and vagina; Z95.0 Presence of cardiac pacemaker; Z75.1 Person awaiting admission to adequate facility elsewhere; Z79.899 Other long term (current) drug therapy; Z79.890 Hormone replacement therapy; Z79.4 Long term (current) use of insulin; Z88.5 Allergy status to narcotic agent; Z88.0 Allergy status to penicillin; Z88.2 Allergy status to sulfonamides; Z88.8 Allergy status to other drugs, medicaments and biological substances; Z79.01 Long term (current) use of anticoagulants; Z86.16 Personal history of COVID-19; Z90.49 Acquired absence of other specified parts of digestive tract; Z87.891 Personal history of nicotine dependence; Z68.31 Body mass index [BMI] 31.0-31.9, adult; Z86.711 Personal history of pulmonary embolism; Z11.52 Encounter for screening for COVID-19
CPT/HCPCS: 36415; 36416; 36573; 36592; 51702; 51798; 71045; 71046; 74018; 74176; 76000; 76770; 77001; 80048; 80053; 81001; 82306; 82436; 82533; 82550; 82652; 82728; 82962; 83520; 83540; 83550; 83690; 83735; 83880; 84100; 84132; 84133; 84300; 84443; 84484; 84550; 85018; 85025; 86036; 86038; 86140; 86160; 86225; 86705; 86706; 86803; 87077; 87086; 87186; 87340; 87637; 88300; 90935; 92507; 92526; 92610; 93005; 93306; 94640; 94660; 96372; 96374; 97110; 97116; 97162; 97163; 97166; 97530; 99285; C1750; J0612; J0744; J1450; J1644; J1815; J1938; J2060; J2405; J2704; J2916; J3490; J7030; J7040; J7050; J9999; P9047; Q0162; Q3014